=== PATIENT | female | born 1980 | race Caucasian/White ===

== ENCOUNTER 2016-09-01 11:50 | Outpatient (CLI) | payer MEDICARE, OTHER ==
[~2016-09-01] VITALS: Ht 162.6 cm; Wt 99.8 kg
[~2016-09-01 11:50] MED LIST: /ONDA4TA OR; /ONDA4TA PO; /PANT40TA PO; ACET50TA PO; ACETAMINOPHEN OR; ATOR1TAB21 PO; CIPR500T19; CLON0.5T PO; COLE1TAB PO; CREO6000 PO; FISH1200 PO; FLAG500T; FLON0.054; GABA-283 PO; GABA300C3 PO; GEMF600T PO; HYOSCYAMINE OR; IBUP100SUS FT; IBUP80TA PO; LOPI600T PO; MAGN500C PO; MIRT15TA3 PO; MS C200T PO; NORCOTAB PO; OMAC1CA PO; OMEP40CA2 PO; OXYC10TA12 PO; OXYCODONE OR; PANT20TA PO; PAXI40TA PO; PERC10TA17 PO; PERC7.5T12 PO; PERCOCET PO; PRAZ2CAP PO; PRIS50TA PO; PROZ10CA7 PO; PROZ40CA PO; RANI150C PO; SIMV20TA2; SODI1SOL8 PO; SODIUM CHLORIDE 0.9% INJ 10 ML SYR IV SCH; SUDA30TA PO; TRAZ150T14 PO; TRAZ50TA PO; TRAZ50TA2 PO; TRAZO50TA PO; TYLE325T5 PO; TYLENOL #3 OR; VITA200016 PO; WELL75TA PO; ZOFR20TA PO; ZOFR8TAB PO; celexa; clonazepam PO
[2016-09-01] MEDS ORDERED: NS 1,000 ML IV SCH (12:00)
[2016-09-01 12:55] LABS: MEAN CORPUSCULAR HEMOGLOBIN 29.8 pg (27.0-33.0); MEAN CORPUSCULAR HGB CONC 34.1 g/dl (32.0-36.5); MEAN CORPUSCULAR VOLUME 87.4 fl (80.0-96.0); RED CELL DISTRIBUTION WIDTH 12.5 % (11.5-14.5); WHITE BLOOD COUNT 11.9 K/mm3 (4.0-10.0)
[2016-09-01 13:38] LABS: ALBUMIN 4.3 GM/DL (3.2-5.2); ALBUMIN/GLOBULIN RATIO 1.13 (1.00-1.93); ALKALINE PHOSPHATASE 103 U/L (45-117); ALT/SGPT 34 U/L (12-78); ANION GAP 10 MEQ/L (8-16); AST/SGOT 11 U/L (15-37); BILIRUBIN,TOTAL 0.2 MG/DL (0.2-1.0); BLOOD UREA NITROGEN 15 MG/DL (7-18); CALCIUM LEVEL 9.8 MG/DL (8.5-10.1); CARBON DIOXIDE LEVEL 26 MEQ/L (21-32); CHLORIDE LEVEL 104 MEQ/L (98-107); CREATININE FOR GFR 0.75 MG/DL (0.55-1.02); GLOMERULAR FILTRATION RATE > 60.0 (>60); GLUCOSE, FASTING 92 MG/DL (70-105); MAGNESIUM LEVEL 2.3 MG/DL (1.8-2.4); POTASSIUM SERUM 4.2 MEQ/L (3.5-5.1); SODIUM LEVEL 140 MEQ/L (136-145); TOTAL PROTEIN 8.1 GM/DL (6.4-8.2)
== END 2016-09-01 15:45 | disposition home or self-care (01) ==
LOC: M INFU 11:50
PROVIDERS: ATTEND Internal Medicine
DX: K51.20 Ulcerative (chronic) proctitis without complications (principal); M13.0 Polyarthritis, unspecified; K86.1 Other chronic pancreatitis; K91.850 Pouchitis; K21.9 Gastro-esophageal reflux disease without esophagitis; E78.1 Pure hyperglyceridemia; E86.0 Dehydration

== ENCOUNTER 2016-09-15 12:06 | Outpatient (CLI) | payer MEDICARE, OTHER ==
[~2016-09-15] VITALS: Ht 162.6 cm; Wt 99.7 kg
[2016-09-15] MEDS ORDERED: NS 1,000 ML IV SCH (12:45)
== END 2016-09-15 15:35 | disposition home or self-care (01) ==
LOC: M INFU 12:06
PROVIDERS: ATTEND Internal Medicine
DX: E86.0 Dehydration (principal); K51.20 Ulcerative (chronic) proctitis without complications; Z79.899 Other long term (current) drug therapy; Z91.048 Other nonmedicinal substance allergy status; Z91.040 Latex allergy status; Z88.8 Allergy status to other drugs, medicaments and biological substances; Z88.5 Allergy status to narcotic agent

== ENCOUNTER 2016-09-29 11:40 | Outpatient (CLI) | payer MEDICARE, OTHER ==
[2016-09-29] MEDS ORDERED: NS 1,000 ML IV SCH (12:00)
== END 2016-09-29 15:30 | disposition home or self-care (01) ==
LOC: M INFU 11:40
PROVIDERS: ATTEND Internal Medicine
DX: E86.0 Dehydration (principal); K51.20 Ulcerative (chronic) proctitis without complications; Z79.899 Other long term (current) drug therapy; Z91.041 Radiographic dye allergy status; Z88.8 Allergy status to other drugs, medicaments and biological substances; Z91.040 Latex allergy status

== ENCOUNTER 2016-10-13 12:17 | Outpatient (CLI) | payer MEDICARE, OTHER ==
[2016-10-13] MEDS ORDERED: NS 1,000 ML IV SCH (12:30)
== END 2016-10-13 15:45 | disposition home or self-care (01) ==
LOC: M INFU 12:17
PROVIDERS: ATTEND Internal Medicine
DX: E86.0 Dehydration (principal); K51.20 Ulcerative (chronic) proctitis without complications; Z91.040 Latex allergy status; Z91.041 Radiographic dye allergy status; Z88.5 Allergy status to narcotic agent

== ENCOUNTER 2016-11-03 12:54 | Outpatient (CLI) | payer MEDICARE, OTHER ==
[~2016-11-03 12:54] MED LIST changes: +NS 1,000 ML IV SCH
== END 2016-11-03 16:30 | disposition home or self-care (01) ==
LOC: M INFU 12:54
PROVIDERS: ATTEND General Practice
DX: E86.0 Dehydration (principal); K51.20 Ulcerative (chronic) proctitis without complications; Z91.041 Radiographic dye allergy status; Z88.5 Allergy status to narcotic agent; Z91.040 Latex allergy status; Z79.899 Other long term (current) drug therapy

== ENCOUNTER 2016-11-08 20:22 | Emergency (ER) | payer MEDICARE, OTHER ==
[~2016-11-08] VITALS: Ht 162.6 cm; Wt 94.3 kg
[~2016-11-08 20:22] MED LIST changes: -NS 1,000 ML IV SCH; -SODIUM CHLORIDE 0.9% INJ 10 ML SYR IV SCH
[2016-11-08] MEDS ORDERED: OXYC10TA12 PO (20:44)
[2016-11-08] MEDS ORDERED: CIMZKIT SC (20:47)
[2016-11-08] MEDS ORDERED: BUSP10TA PO (20:47)
[2016-11-08] MEDS ORDERED: ONDANSETRON 4 MG ORAL DISINTEGRATING TAB (S0181) PO ONE (21:45)
[2016-11-08] MEDS ORDERED: HYDROmorphone HCL 1 MG/ML SYRINGE (J1170) IM ONE (21:45)
[2016-11-08 22:56] VITALS: BP 106/69
--- NOTE | 2016-11-09 08:16 | REP ---
Clinical: Trauma. Technique: AP, lateral, bilateral oblique views of the right and left wrist. Findings: The carpal bones, surrounding osseous structures, soft tissues, and joint spaces are normal. There is no evidence for acute fracture or dislocation. No subcutaneous emphysema or radiodense foreign body. Impression: Normal bilateral wrist series. No acute fracture or dislocation Signed by Walt Harper MD 11/09/2016 08:07 A
== END 2016-11-08 22:57 | disposition home or self-care (01) ==
LOC: M ED 21:23
DX: T14.8 Other injury of unspecified body region (principal); W10.8XXA Fall (on) (from) other stairs and steps, initial encounter; Y92.098 Other place in other non-institutional residence as the place of occurrence of the external cause; Y93.89 Activity, other specified; Y99.8 Other external cause status; G89.29 Other chronic pain; F17.210 Nicotine dependence, cigarettes, uncomplicated; Z91.041 Radiographic dye allergy status; Z88.5 Allergy status to narcotic agent; Z88.8 Allergy status to other drugs, medicaments and biological substances; Z91.040 Latex allergy status; Z88.1 Allergy status to other antibiotic agents; Z79.899 Other long term (current) drug therapy
CPT/HCPCS: 73110; 96372; 99282; J1170

== ENCOUNTER 2016-11-17 12:46 | Outpatient (CLI) | payer MEDICARE, OTHER ==
[~2016-11-17] VITALS: Ht 137.2 cm; Wt 99.8 kg
[~2016-11-17 12:46] MED LIST changes: +BUSP10TA PO; +CIMZKIT SC; +SODIUM CHLORIDE 0.9% INJ 10 ML SYR IV SCH
[2016-11-17] MEDS ORDERED: NS 1,000 ML IV SCH (13:00)
[2016-11-17 14:30] LABS: BASO % 0.4 % (0.0-1.0); EOS # 0.2 K/mm3 (0.0-0.50); EOS % 1.5 % (0.0-3.0); LARGE UNSTAINED CELL # 0.2 K/mm3 (0.0-0.4); LARGE UNSTAINED CELL % 2.2 % (0.0-4.0); LYMPH # 3.8 K/mm3 (1.5-4.5); MEAN CORPUSCULAR HEMOGLOBIN 30.5 pg (27.0-33.0); MEAN CORPUSCULAR HGB CONC 33.7 g/dl (32.0-36.5); MEAN CORPUSCULAR VOLUME 90.5 fl (80.0-96.0); MONO # 0.5 K/mm3 (0.0-0.8); MONO % 4.1 % (0.0-5.0); NEUTROPHILS # 6.7 K/mm3 (1.8-7.7); NEUTROPHILS % 59.7 % (36.0-66.0); PLATELET COUNT, AUTOMATED 298 k/mm3 (150-450); WHITE BLOOD COUNT 11.2 K/mm3 (4.0-10.0)
[2016-11-17 14:37] LABS: ALBUMIN 3.8 GM/DL (3.2-5.2); ALKALINE PHOSPHATASE 96 U/L (45-117); AST/SGOT 21 U/L (15-37); BILIRUBIN,TOTAL 0.2 MG/DL (0.2-1.0); BLOOD UREA NITROGEN 10 MG/DL (7-18); CALCIUM LEVEL 8.1 MG/DL (8.5-10.1); CARBON DIOXIDE LEVEL 26 MEQ/L (21-32); CHLORIDE LEVEL 104 MEQ/L (98-107); CHOLESTEROL LEVEL 266 MG/DL (<200); GLUCOSE, FASTING 123 MG/DL (70-105); POTASSIUM SERUM 3.5 MEQ/L (3.5-5.1); SODIUM LEVEL 138 MEQ/L (136-145); TRIGLYCERIDES LEVEL 1123 MG/DL (<150)
[2016-11-17 14:52] LABS: ANION GAP 8 MEQ/L (8-16)
[2016-11-17 14:53] LABS: ALBUMIN/GLOBULIN RATIO 1.18 (1.00-1.93); ALT/SGPT 35 U/L (12-78)
[2016-11-17 15:15] LABS: ERYTHROCYTE SEDIMENTATION RATE 35 mm/hr (0-20)
== END 2016-11-17 16:55 | disposition home or self-care (01) ==
LOC: M INFU 12:46
PROVIDERS: ATTEND Hospitalist
DX: E86.0 Dehydration (principal); K51.20 Ulcerative (chronic) proctitis without complications; Z79.899 Other long term (current) drug therapy; Z91.041 Radiographic dye allergy status; Z88.8 Allergy status to other drugs, medicaments and biological substances; Z91.040 Latex allergy status; Z88.5 Allergy status to narcotic agent

== ENCOUNTER 2016-12-01 11:40 | Outpatient (CLI) | payer MEDICARE, OTHER ==
[~2016-12-01] VITALS: Ht 137.2 cm; Wt 99.8 kg
[~2016-12-01 11:40] MED LIST changes: +GABA-282 PO; -GABA300C3 PO
[2016-12-01] MEDS ORDERED: NS 1,000 ML IV SCH (12:00)
[2016-12-01 12:35] LABS: BASO % 0.3 % (0.0-1.0); EOS # 0.1 K/mm3 (0.0-0.50); EOS % 1.1 % (0.0-3.0); LARGE UNSTAINED CELL # 0.2 K/mm3 (0.0-0.4); LARGE UNSTAINED CELL % 1.3 % (0.0-4.0); LYMPH # 2.9 K/mm3 (1.5-4.5); MEAN CORPUSCULAR HEMOGLOBIN 30.3 pg (27.0-33.0); MEAN CORPUSCULAR HGB CONC 33.3 g/dl (32.0-36.5); MEAN CORPUSCULAR VOLUME 90.8 fl (80.0-96.0); MONO # 0.5 K/mm3 (0.0-0.8); MONO % 3.5 % (0.0-5.0); NEUTROPHILS % 70.7 % (36.0-66.0); PLATELET COUNT, AUTOMATED 297 k/mm3 (150-450); RED CELL DISTRIBUTION WIDTH 12.5 % (11.5-14.5); WHITE BLOOD COUNT 12.7 K/mm3 (4.0-10.0)
[2016-12-01 12:56] LABS: ALBUMIN/GLOBULIN RATIO 1.25 (1.00-1.93); ALKALINE PHOSPHATASE 106 U/L (45-117); ALT/SGPT 22 U/L (12-78); ANION GAP 6 MEQ/L (8-16); AST/SGOT 15 U/L (15-37); BILIRUBIN,TOTAL 0.2 MG/DL (0.2-1.0); BLOOD UREA NITROGEN 11 MG/DL (7-18); CALCIUM LEVEL 9.7 MG/DL (8.5-10.1); CARBON DIOXIDE LEVEL 26 MEQ/L (21-32); CHLORIDE LEVEL 105 MEQ/L (98-107); CHOLESTEROL LEVEL 226 MG/DL (<200); CREATININE FOR GFR 0.69 MG/DL (0.55-1.02); GLOMERULAR FILTRATION RATE > 60.0 (>60); GLUCOSE, FASTING 167 MG/DL (70-105); SODIUM LEVEL 137 MEQ/L (136-145); TOTAL PROTEIN 7.2 GM/DL (6.4-8.2); TRIGLYCERIDES LEVEL 351 MG/DL (<150)
[2016-12-01 13:29] LABS: ERYTHROCYTE SEDIMENTATION RATE 16 mm/hr (0-20)
== END 2016-12-01 15:20 | disposition home or self-care (01) ==
LOC: M INFU 11:40
PROVIDERS: ATTEND Internal Medicine
DX: E86.0 Dehydration (principal); K51.20 Ulcerative (chronic) proctitis without complications; Z79.899 Other long term (current) drug therapy; Z91.041 Radiographic dye allergy status; Z88.8 Allergy status to other drugs, medicaments and biological substances; Z91.040 Latex allergy status; Z88.5 Allergy status to narcotic agent

== ENCOUNTER 2016-12-15 12:02 | Outpatient (CLI) | payer MEDICARE, OTHER ==
[~2016-12-15] VITALS: Ht 137.2 cm; Wt 99.8 kg
[2016-12-15] MEDS ORDERED: NS 1,000 ML IV ONE (12:30)
[2016-12-15 12:35] LABS: BASO # 0.1 K/mm3 (0.0-0.2); BASO % 0.5 % (0.0-1.0); EOS # 0.3 K/mm3 (0.0-0.50); EOS % 2.6 % (0.0-3.0); LARGE UNSTAINED CELL # 0.2 K/mm3 (0.0-0.4); LARGE UNSTAINED CELL % 1.7 % (0.0-4.0); LYMPH # 4.2 K/mm3 (1.5-4.5); LYMPH % 33.6 % (24.0-44.0); MEAN CORPUSCULAR HEMOGLOBIN 31.9 pg (27.0-33.0); MEAN CORPUSCULAR HGB CONC 34.7 g/dl (32.0-36.5); MEAN CORPUSCULAR VOLUME 91.9 fl (80.0-96.0); MONO # 0.5 K/mm3 (0.0-0.8); NEUTROPHILS # 7.2 K/mm3 (1.8-7.7); NEUTROPHILS % 57.6 % (36.0-66.0); PLATELET COUNT, AUTOMATED 288 k/mm3 (150-450); RED CELL DISTRIBUTION WIDTH 12.7 % (11.5-14.5); WHITE BLOOD COUNT 12.4 K/mm3 (4.0-10.0)
[2016-12-15 13:09] LABS: ERYTHROCYTE SEDIMENTATION RATE 20 mm/hr (0-20)
[2016-12-15 13:32] LABS: ALBUMIN/GLOBULIN RATIO 1.14 (1.00-1.93); ALKALINE PHOSPHATASE 106 U/L (45-117); ALT/SGPT 39 U/L (12-78); ANION GAP 9 MEQ/L (8-16); AST/SGOT 24 U/L (15-37); BILIRUBIN,TOTAL 0.2 MG/DL (0.2-1.0); BLOOD UREA NITROGEN 13 MG/DL (7-18); CALCIUM LEVEL 8.5 MG/DL (8.5-10.1); CARBON DIOXIDE LEVEL 25 MEQ/L (21-32); CHLORIDE LEVEL 106 MEQ/L (98-107); CHOLESTEROL LEVEL 209 MG/DL (<200); CREATININE FOR GFR 0.68 MG/DL (0.55-1.02); GLOMERULAR FILTRATION RATE > 60.0 (>60); GLUCOSE, FASTING 102 MG/DL (70-105); POTASSIUM SERUM 3.7 MEQ/L (3.5-5.1); SODIUM LEVEL 140 MEQ/L (136-145); TOTAL PROTEIN 7.5 GM/DL (6.4-8.2); TRIGLYCERIDES LEVEL 479 MG/DL (<150)
== END 2016-12-15 15:30 | disposition home or self-care (01) ==
LOC: M INFU 12:02
PROVIDERS: ATTEND Internal Medicine
DX: E86.0 Dehydration (principal); K51.20 Ulcerative (chronic) proctitis without complications; Z79.899 Other long term (current) drug therapy; Z91.041 Radiographic dye allergy status; Z88.8 Allergy status to other drugs, medicaments and biological substances; Z91.040 Latex allergy status; Z88.5 Allergy status to narcotic agent

== ENCOUNTER 2016-12-29 12:29 | Outpatient (CLI) | payer MEDICARE, OTHER ==
[~2016-12-29] VITALS: Ht 137.2 cm; Wt 99.8 kg
[~2016-12-29 12:29] MED LIST changes: +NS 1,000 ML IV ONE
[2016-12-29 14:23] LABS: BASO # 0.1 K/mm3 (0.0-0.2); BASO % 0.5 % (0.0-1.0); EOS # 0.2 K/mm3 (0.0-0.50); EOS % 1.6 % (0.0-3.0); LARGE UNSTAINED CELL # 0.2 K/mm3 (0.0-0.4); LARGE UNSTAINED CELL % 1.7 % (0.0-4.0); LYMPH # 4.2 K/mm3 (1.5-4.5); LYMPH % 33.5 % (24.0-44.0); MEAN CORPUSCULAR HEMOGLOBIN 31.3 pg (27.0-33.0); MEAN CORPUSCULAR HGB CONC 33.8 g/dl (32.0-36.5); MEAN CORPUSCULAR VOLUME 92.8 fl (80.0-96.0); MONO # 0.4 K/mm3 (0.0-0.8); MONO % 3.3 % (0.0-5.0); NEUTROPHILS # 7.5 K/mm3 (1.8-7.7); NEUTROPHILS % 59.5 % (36.0-66.0); PLATELET COUNT, AUTOMATED 317 k/mm3 (150-450); RED CELL DISTRIBUTION WIDTH 12.6 % (11.5-14.5); WHITE BLOOD COUNT 12.6 K/mm3 (4.0-10.0)
[2016-12-29 14:47] LABS: ALBUMIN 4.2 GM/DL (3.2-5.2); ALKALINE PHOSPHATASE 110 U/L (45-117); ALT/SGPT 28 U/L (12-78); ANION GAP 6 MEQ/L (8-16); AST/SGOT 11 U/L (15-37); BILIRUBIN,TOTAL 0.3 MG/DL (0.2-1.0); BLOOD UREA NITROGEN 13 MG/DL (7-18); CALCIUM LEVEL 9.1 MG/DL (8.5-10.1); CARBON DIOXIDE LEVEL 26 MEQ/L (21-32); CHLORIDE LEVEL 107 MEQ/L (98-107); CHOLESTEROL LEVEL 197 MG/DL (<200); CREATININE FOR GFR 0.67 MG/DL (0.55-1.02); GLOMERULAR FILTRATION RATE > 60.0 (>60); GLUCOSE, FASTING 96 MG/DL (70-105); POTASSIUM SERUM 3.8 MEQ/L (3.5-5.1); SODIUM LEVEL 139 MEQ/L (136-145); TOTAL PROTEIN 7.7 GM/DL (6.4-8.2); TRIGLYCERIDES LEVEL 213 MG/DL (<150)
[2016-12-29 15:34] LABS: ERYTHROCYTE SEDIMENTATION RATE 28 mm/hr (0-20)
== END 2016-12-29 16:00 | disposition home or self-care (01) ==
LOC: M INFU 12:29
PROVIDERS: ATTEND Hospitalist
DX: E86.0 Dehydration (principal); K51.20 Ulcerative (chronic) proctitis without complications; Z87.891 Personal history of nicotine dependence; Z88.5 Allergy status to narcotic agent; Z91.041 Radiographic dye allergy status; Z88.8 Allergy status to other drugs, medicaments and biological substances; Z91.040 Latex allergy status; Z88.1 Allergy status to other antibiotic agents; Z79.899 Other long term (current) drug therapy

== ENCOUNTER 2017-01-12 10:45 | Outpatient (CLI) | payer MEDICARE, OTHER ==
[~2017-01-12] VITALS: Ht 137.2 cm; Wt 99.8 kg
[~2017-01-12 10:45] MED LIST changes: -NS 1,000 ML IV ONE; +NS 2,000 ML IV SCH
[2017-01-12 11:39] LABS: BASO % 0.4 % (0.0-1.0); EOS # 0.3 K/mm3 (0.0-0.50); LARGE UNSTAINED CELL # 0.2 K/mm3 (0.0-0.4); LARGE UNSTAINED CELL % 1.4 % (0.0-4.0); LYMPH # 2.6 K/mm3 (1.5-4.5); MEAN CORPUSCULAR HGB CONC 33.9 g/dl (32.0-36.5); MEAN CORPUSCULAR VOLUME 91.6 fl (80.0-96.0); MONO # 0.6 K/mm3 (0.0-0.8); MONO % 4.5 % (0.0-5.0); NEUTROPHILS # 9.4 K/mm3 (1.8-7.7); NEUTROPHILS % 71.8 % (36.0-66.0); PLATELET COUNT, AUTOMATED 249 k/mm3 (150-450); RED CELL DISTRIBUTION WIDTH 12.6 % (11.5-14.5); WHITE BLOOD COUNT 13.1 K/mm3 (4.0-10.0)
[2017-01-12 12:36] LABS: ERYTHROCYTE SEDIMENTATION RATE 29 mm/hr (0-20)
[2017-01-12 13:14] LABS: ALBUMIN 3.7 GM/DL (3.2-5.2); ALBUMIN/GLOBULIN RATIO 1.06 (1.00-1.93); ALKALINE PHOSPHATASE 99 U/L (45-117); ALT/SGPT 28 U/L (12-78); ANION GAP 6 MEQ/L (8-16); AST/SGOT 14 U/L (15-37); BILIRUBIN,TOTAL 0.3 MG/DL (0.2-1.0); BLOOD UREA NITROGEN 10 MG/DL (7-18); CALCIUM LEVEL 8.8 MG/DL (8.5-10.1); CARBON DIOXIDE LEVEL 26 MEQ/L (21-32); CHLORIDE LEVEL 108 MEQ/L (98-107); CHOLESTEROL LEVEL 229 MG/DL (<200); CREATININE FOR GFR 0.71 MG/DL (0.55-1.02); GLOMERULAR FILTRATION RATE > 60.0 (>60); GLUCOSE, FASTING 110 MG/DL (70-105); SODIUM LEVEL 140 MEQ/L (136-145); TOTAL PROTEIN 7.2 GM/DL (6.4-8.2); TRIGLYCERIDES LEVEL 729 MG/DL (<150)
== END 2017-01-12 14:45 | disposition home or self-care (01) ==
LOC: M INFU 10:45
PROVIDERS: ATTEND Hospitalist
DX: E86.0 Dehydration (principal); K51.90 Ulcerative colitis, unspecified, without complications; K62.89 Other specified diseases of anus and rectum; Z88.1 Allergy status to other antibiotic agents; Z91.041 Radiographic dye allergy status; Z91.040 Latex allergy status; Z88.8 Allergy status to other drugs, medicaments and biological substances; Z79.899 Other long term (current) drug therapy

== ENCOUNTER 2017-01-26 12:32 | Outpatient (CLI) | payer MEDICARE, OTHER ==
[~2017-01-26 12:32] MED LIST changes: -NS 2,000 ML IV SCH
[2017-01-26] MEDS ORDERED: NS 2,000 ML IV ONE (13:00)
[2017-01-26 13:47] LABS: BASO # 0.1 K/mm3 (0.0-0.2); BASO % 0.5 % (0.0-1.0); EOS # 0.2 K/mm3 (0.0-0.50); EOS % 1.5 % (0.0-3.0); LARGE UNSTAINED CELL # 0.3 K/mm3 (0.0-0.4); LYMPH # 4.8 K/mm3 (1.5-4.5); LYMPH % 35.7 % (24.0-44.0); MEAN CORPUSCULAR HEMOGLOBIN 30.7 pg (27.0-33.0); MEAN CORPUSCULAR HGB CONC 33.4 g/dl (32.0-36.5); MEAN CORPUSCULAR VOLUME 91.9 fl (80.0-96.0); MONO # 0.5 K/mm3 (0.0-0.8); MONO % 3.6 % (0.0-5.0); NEUTROPHILS # 7.2 K/mm3 (1.8-7.7); NEUTROPHILS % 56.7 % (36.0-66.0); PLATELET COUNT, AUTOMATED 310 k/mm3 (150-450); RED CELL DISTRIBUTION WIDTH 12.5 % (11.5-14.5); WHITE BLOOD COUNT 12.7 K/mm3 (4.0-10.0)
[2017-01-26 14:12] LABS: ALBUMIN 4.3 GM/DL (3.2-5.2); ALBUMIN/GLOBULIN RATIO 1.13 (1.00-1.93); ALKALINE PHOSPHATASE 111 U/L (45-117); ALT/SGPT 27 U/L (12-78); ANION GAP 8 MEQ/L (8-16); AST/SGOT 16 U/L (15-37); BILIRUBIN,TOTAL 0.3 MG/DL (0.2-1.0); BLOOD UREA NITROGEN 17 MG/DL (7-18); CALCIUM LEVEL 9.4 MG/DL (8.5-10.1); CARBON DIOXIDE LEVEL 24 MEQ/L (21-32); CHLORIDE LEVEL 104 MEQ/L (98-107); CHOLESTEROL LEVEL 227 MG/DL (<200); CREATININE FOR GFR 0.77 MG/DL (0.55-1.02); GLOMERULAR FILTRATION RATE > 60.0 (>60); GLUCOSE, FASTING 87 MG/DL (70-105); POTASSIUM SERUM 3.7 MEQ/L (3.5-5.1); SODIUM LEVEL 136 MEQ/L (136-145); TOTAL PROTEIN 8.1 GM/DL (6.4-8.2); TRIGLYCERIDES LEVEL 364 MG/DL (<150)
[2017-01-26 14:44] LABS: ERYTHROCYTE SEDIMENTATION RATE 22 mm/hr (0-20)
== END 2017-01-26 16:20 | disposition home or self-care (01) ==
LOC: M INFU 12:32
PROVIDERS: ATTEND Internal Medicine
DX: E86.0 Dehydration (principal); K51.20 Ulcerative (chronic) proctitis without complications; Z87.891 Personal history of nicotine dependence; Z88.8 Allergy status to other drugs, medicaments and biological substances; Z91.041 Radiographic dye allergy status; Z88.5 Allergy status to narcotic agent; Z91.040 Latex allergy status; Z88.1 Allergy status to other antibiotic agents; Z88.3 Allergy status to other anti-infective agents; Z79.899 Other long term (current) drug therapy

== ENCOUNTER 2017-02-09 12:27 | Outpatient (CLI) | payer MEDICARE, OTHER ==
[~2017-02-09] VITALS: Ht 137.2 cm; Wt 99.8 kg
[2017-02-09] MEDS ORDERED: NS 1,000 ML IV SCH (13:00)
[2017-02-09 14:00] LABS: BASO # 0.1 K/mm3 (0.0-0.2); BASO % 0.4 % (0.0-1.0); EOS # 0.3 K/mm3 (0.0-0.50); LARGE UNSTAINED CELL # 0.2 K/mm3 (0.0-0.4); LARGE UNSTAINED CELL % 1.2 % (0.0-4.0); LYMPH # 3.7 K/mm3 (1.5-4.5); LYMPH % 24.2 % (24.0-44.0); MEAN CORPUSCULAR HEMOGLOBIN 31.1 pg (27.0-33.0); MEAN CORPUSCULAR HGB CONC 33.7 g/dl (32.0-36.5); MEAN CORPUSCULAR VOLUME 92.3 fl (80.0-96.0); MONO # 0.4 K/mm3 (0.0-0.8); MONO % 2.8 % (0.0-5.0); NEUTROPHILS # 10.1 K/mm3 (1.8-7.7); NEUTROPHILS % 69.4 % (36.0-66.0); PLATELET COUNT, AUTOMATED 283 k/mm3 (150-450); RED CELL DISTRIBUTION WIDTH 12.7 % (11.5-14.5); WHITE BLOOD COUNT 14.6 K/mm3 (4.0-10.0)
[2017-02-09 14:08] LABS: CHLORIDE LEVEL 106 MEQ/L (98-107); POTASSIUM SERUM 3.8 MEQ/L (3.5-5.1); SODIUM LEVEL 141 MEQ/L (136-145)
[2017-02-09 14:27] LABS: ALBUMIN 3.8 GM/DL (3.2-5.2); ALBUMIN/GLOBULIN RATIO 1.03 (1.00-1.93); ALKALINE PHOSPHATASE 91 U/L (45-117); ALT/SGPT 31 U/L (12-78); ANION GAP 7 MEQ/L (8-16); AST/SGOT 20 U/L (15-37); BILIRUBIN,TOTAL 0.3 MG/DL (0.2-1.0); BLOOD UREA NITROGEN 10 MG/DL (7-18); CALCIUM LEVEL 8.9 MG/DL (8.5-10.1); CARBON DIOXIDE LEVEL 28 MEQ/L (21-32); CHOLESTEROL LEVEL 203 MG/DL (<200); CREATININE FOR GFR 0.67 MG/DL (0.55-1.02); GLOMERULAR FILTRATION RATE > 60.0 (>60); GLUCOSE, FASTING 118 MG/DL (70-105); TOTAL PROTEIN 7.5 GM/DL (6.4-8.2); TRIGLYCERIDES LEVEL 217 MG/DL (<150)
[2017-02-09 14:52] LABS: ERYTHROCYTE SEDIMENTATION RATE 25 mm/hr (0-20)
== END 2017-02-09 16:30 | disposition home or self-care (01) ==
LOC: M INFU 12:27
PROVIDERS: ATTEND Hospitalist
DX: E86.0 Dehydration (principal); K51.20 Ulcerative (chronic) proctitis without complications; Z87.891 Personal history of nicotine dependence; Z88.5 Allergy status to narcotic agent; Z91.041 Radiographic dye allergy status; Z88.8 Allergy status to other drugs, medicaments and biological substances; Z91.040 Latex allergy status; Z88.3 Allergy status to other anti-infective agents; Z88.1 Allergy status to other antibiotic agents; Z79.899 Other long term (current) drug therapy

== ENCOUNTER 2017-02-23 11:56 | Outpatient (CLI) | payer MEDICARE, OTHER ==
[~2017-02-23] VITALS: Ht 137.2 cm; Wt 99.8 kg
[~2017-02-23 11:56] MED LIST changes: -PERC10TA17 PO; +PERC10TA26 PO; -TRAZ150T14 PO; +TRAZ1TAB14 PO
[2017-02-23] MEDS ORDERED: NS 1,000 ML IV SCH (12:00)
[2017-02-23 12:20] LABS: BASO # 0.1 K/mm3 (0.0-0.2); BASO % 0.7 % (0.0-1.0); EOS # 0.2 K/mm3 (0.0-0.50); EOS % 1.6 % (0.0-3.0); LARGE UNSTAINED CELL # 0.2 K/mm3 (0.0-0.4); LARGE UNSTAINED CELL % 1.4 % (0.0-4.0); LYMPH # 3.4 K/mm3 (1.5-4.5); LYMPH % 23.3 % (24.0-44.0); MEAN CORPUSCULAR HEMOGLOBIN 31.2 pg (27.0-33.0); MEAN CORPUSCULAR HGB CONC 33.8 g/dl (32.0-36.5); MEAN CORPUSCULAR VOLUME 92.2 fl (80.0-96.0); MONO # 0.3 K/mm3 (0.0-0.8); MONO % 1.9 % (0.0-5.0); NEUTROPHILS # 10.5 K/mm3 (1.8-7.7); PLATELET COUNT, AUTOMATED 306 k/mm3 (150-450); RED CELL DISTRIBUTION WIDTH 12.4 % (11.5-14.5); WHITE BLOOD COUNT 14.8 K/mm3 (4.0-10.0)
[2017-02-23 12:47] LABS: ALKALINE PHOSPHATASE 102 U/L (45-117); ALT/SGPT 23 U/L (12-78); ANION GAP 8 MEQ/L (8-16); AST/SGOT 9 U/L (15-37); BILIRUBIN,TOTAL 0.3 MG/DL (0.2-1.0); BLOOD UREA NITROGEN 15 MG/DL (7-18); CALCIUM LEVEL 9.1 MG/DL (8.5-10.1); CARBON DIOXIDE LEVEL 22 MEQ/L (21-32); CHLORIDE LEVEL 107 MEQ/L (98-107); CHOLESTEROL LEVEL 242 MG/DL (<200); CREATININE FOR GFR 0.79 MG/DL (0.55-1.02); GLOMERULAR FILTRATION RATE > 60.0 (>60); GLUCOSE, FASTING 200 MG/DL (70-105); POTASSIUM SERUM 3.7 MEQ/L (3.5-5.1); SODIUM LEVEL 137 MEQ/L (136-145); TRIGLYCERIDES LEVEL 256 MG/DL (<150)
[2017-02-23 13:19] LABS: ERYTHROCYTE SEDIMENTATION RATE 31 mm/hr (0-20)
[2017-06-24] MEDS ORDERED: TYLE325T5 PO (18:04)
== END 2017-02-23 15:50 | disposition home or self-care (01) ==
LOC: M INFU 11:56
PROVIDERS: ATTEND Internal Medicine
DX: E86.0 Dehydration (principal); K51.20 Ulcerative (chronic) proctitis without complications; Z87.891 Personal history of nicotine dependence; Z91.041 Radiographic dye allergy status; Z88.8 Allergy status to other drugs, medicaments and biological substances; Z91.040 Latex allergy status; Z88.5 Allergy status to narcotic agent; Z88.1 Allergy status to other antibiotic agents; Z88.3 Allergy status to other anti-infective agents; Z79.899 Other long term (current) drug therapy

== ENCOUNTER 2017-02-26 20:34 | Emergency (ER) | payer MEDICARE, OTHER ==
[~2017-02-26] VITALS: Ht 162.6 cm; Wt 89.9 kg
[~2017-02-26 20:34] MED LIST changes: -SODIUM CHLORIDE 0.9% INJ 10 ML SYR IV SCH
[2017-02-26] MEDS ORDERED: ZOFR20TA PO (20:41)
[2017-02-26] MEDS ORDERED: LR 1,000 ML IV ONE (22:30)
[2017-02-26] MEDS ORDERED: METOCLOPRAMIDE INJ 10MG/2ML VIAL (J2765) IV ONE (22:30)
[2017-02-26 23:13] LABS: BASO # 0.1 K/mm3 (0.0-0.2); BASO % 0.4 % (0.0-1.0); EOS # 0.4 K/mm3 (0.0-0.50); EOS % 2.2 % (0.0-3.0); LARGE UNSTAINED CELL # 0.2 K/mm3 (0.0-0.4); LARGE UNSTAINED CELL % 1.2 % (0.0-4.0); LYMPH # 4.1 K/mm3 (1.5-4.5); MEAN CORPUSCULAR HEMOGLOBIN 30.7 pg (27.0-33.0); MEAN CORPUSCULAR HGB CONC 33.4 g/dl (32.0-36.5); MEAN CORPUSCULAR VOLUME 91.7 fl (80.0-96.0); MONO # 0.6 K/mm3 (0.0-0.8); MONO % 3.3 % (0.0-5.0); NEUTROPHILS # 12.5 K/mm3 (1.8-7.7); NEUTROPHILS % 70.9 % (36.0-66.0); PLATELET COUNT, AUTOMATED 346 k/mm3 (150-450); RED CELL DISTRIBUTION WIDTH 12.5 % (11.5-14.5); WHITE BLOOD COUNT 17.6 K/mm3 (4.0-10.0)
[2017-02-26] MEDS ORDERED: HYDROmorphone HCL 1 MG/ML SYRINGE (J1170) IV PRN (23:15)
[2017-02-26 23:44] LABS: ALBUMIN 4.4 GM/DL (3.2-5.2); ALKALINE PHOSPHATASE 127 U/L (45-117); ALT/SGPT 22 U/L (12-78); ANION GAP 6 MEQ/L (8-16); AST/SGOT 13 U/L (15-37); BILIRUBIN,DIRECT 0.1 MG/DL (0.0-0.2); BILIRUBIN,TOTAL 0.5 MG/DL (0.2-1.0); BLOOD UREA NITROGEN 15 MG/DL (7-18); CALCIUM LEVEL 9.4 MG/DL (8.5-10.1); CARBON DIOXIDE LEVEL 24 MEQ/L (21-32); CHLORIDE LEVEL 104 MEQ/L (98-107); CREATININE FOR GFR 0.95 MG/DL (0.55-1.02); GLOMERULAR FILTRATION RATE > 60.0 (>60); GLUCOSE, FASTING 100 MG/DL (70-105); POTASSIUM SERUM 3.7 MEQ/L (3.5-5.1); SODIUM LEVEL 134 MEQ/L (136-145); TOTAL PROTEIN 8.4 GM/DL (6.4-8.2)
[2017-02-27] MEDS ORDERED: REGL10TA6 PO (02:27)
[2017-02-27 02:31] VITALS: BP 96/57
--- NOTE | 2017-02-27 08:23 | REP ---
ABDOMEN, FLAT AND UPRIGHT; PA CHEST: HISTORY: Vomiting. A small amount of air is present in small and large intestine. There are no air fluid levels or dilated loops of intestine. There is no pneumoperitoneum. Surgical clips are present in the right upper quadrant. The lungs are clear. IMPRESSION: Nonspecific bowel gas pattern. Signed by Colby Maza MD 02/27/2017 08:24 A
[2017-06-24] MEDS ORDERED: TYLE325T5 PO (18:04)
== END 2017-02-27 02:31 | disposition home or self-care (01) ==
LOC: M ED 20:34
DX: R11.2 Nausea with vomiting, unspecified (principal)
CPT/HCPCS: 74022; 80048; 80076; 83690; 85025; 93041; 96374; 96375; 99284; J1170; J2765

== ENCOUNTER 2017-03-09 12:58 | Outpatient (CLI) | payer MEDICARE, OTHER ==
[~2017-03-09] VITALS: Ht 137.2 cm; Wt 99.8 kg
[~2017-03-09 12:58] MED LIST changes: +REGL10TA6 PO; +SODIUM CHLORIDE 0.9% INJ 10 ML SYR IV SCH
[2017-03-09] MEDS ORDERED: NS 1,000 ML IV SCH (13:15)
[2017-03-09 13:43] LABS: BASO # 0.1 K/mm3 (0.0-0.2); EOS # 0.3 K/mm3 (0.0-0.50); EOS % 2.5 % (0.0-3.0); LARGE UNSTAINED CELL # 0.2 K/mm3 (0.0-0.4); LARGE UNSTAINED CELL % 1.7 % (0.0-4.0); LYMPH # 4.3 K/mm3 (1.5-4.5); LYMPH % 37.3 % (24.0-44.0); MEAN CORPUSCULAR HGB CONC 33.3 g/dl (32.0-36.5); MEAN CORPUSCULAR VOLUME 93.1 fl (80.0-96.0); MONO # 0.5 K/mm3 (0.0-0.8); MONO % 3.9 % (0.0-5.0); NEUTROPHILS # 6.2 K/mm3 (1.8-7.7); NEUTROPHILS % 53.6 % (36.0-66.0); PLATELET COUNT, AUTOMATED 306 k/mm3 (150-450); RED CELL DISTRIBUTION WIDTH 12.2 % (11.5-14.5); WHITE BLOOD COUNT 11.6 K/mm3 (4.0-10.0)
[2017-03-09 14:21] LABS: ERYTHROCYTE SEDIMENTATION RATE 35 mm/hr (0-20)
[2017-03-09] MEDS ORDERED: OXYC-403 PO (14:35)
[2017-03-09] MEDS ORDERED: CIMZKIT SC (14:36)
[2017-03-09 15:20] LABS: ALBUMIN 3.9 GM/DL (3.2-5.2); ALBUMIN/GLOBULIN RATIO 1.22 (1.00-1.93); ALKALINE PHOSPHATASE 95 U/L (45-117); ALT/SGPT 18 U/L (12-78); ANION GAP 6 MEQ/L (8-16); AST/SGOT 11 U/L (15-37); BILIRUBIN,TOTAL 0.2 MG/DL (0.2-1.0); BLOOD UREA NITROGEN 10 MG/DL (7-18); CALCIUM LEVEL 9.2 MG/DL (8.5-10.1); CARBON DIOXIDE LEVEL 25 MEQ/L (21-32); CHLORIDE LEVEL 106 MEQ/L (98-107); CHOLESTEROL LEVEL 172 MG/DL (<200); CREATININE FOR GFR 0.65 MG/DL (0.55-1.02); GLOMERULAR FILTRATION RATE > 60.0 (>60); GLUCOSE, FASTING 81 MG/DL (70-105); POTASSIUM SERUM 3.9 MEQ/L (3.5-5.1); SODIUM LEVEL 137 MEQ/L (136-145); TOTAL PROTEIN 7.1 GM/DL (6.4-8.2); TRIGLYCERIDES LEVEL 175 MG/DL (<150)
[2017-06-24] MEDS ORDERED: TYLE325T5 PO (18:04)
== END 2017-03-09 16:45 | disposition home or self-care (01) ==
LOC: M INFU 12:58
PROVIDERS: ATTEND Hospitalist
DX: E86.0 Dehydration (principal); K51.20 Ulcerative (chronic) proctitis without complications; Z87.891 Personal history of nicotine dependence; Z88.5 Allergy status to narcotic agent; Z88.8 Allergy status to other drugs, medicaments and biological substances; Z91.041 Radiographic dye allergy status; Z91.040 Latex allergy status; Z88.3 Allergy status to other anti-infective agents; Z88.1 Allergy status to other antibiotic agents; Z79.899 Other long term (current) drug therapy

== ENCOUNTER 2017-03-21 10:04 | Outpatient (CLI) | payer MEDICARE, OTHER ==
[~2017-03-21] VITALS: Ht 137.2 cm; Wt 99.8 kg
[~2017-03-21 10:04] MED LIST changes: +OXYC-403 PO
[2017-03-21 10:30] LABS: BASO # 0.1 K/mm3 (0.0-0.2); BASO % 0.5 % (0.0-1.0); EOS # 0.4 K/mm3 (0.0-0.50); EOS % 2.6 % (0.0-3.0); LARGE UNSTAINED CELL # 0.2 K/mm3 (0.0-0.4); LARGE UNSTAINED CELL % 1.3 % (0.0-4.0); LYMPH # 3.3 K/mm3 (1.5-4.5); LYMPH % 21.4 % (24.0-44.0); MEAN CORPUSCULAR HGB CONC 33.9 g/dl (32.0-36.5); MEAN CORPUSCULAR VOLUME 91.5 fl (80.0-96.0); MONO # 0.5 K/mm3 (0.0-0.8); MONO % 3.6 % (0.0-5.0); NEUTROPHILS # 10.3 K/mm3 (1.8-7.7); NEUTROPHILS % 70.6 % (36.0-66.0); PLATELET COUNT, AUTOMATED 350 k/mm3 (150-450); RED CELL DISTRIBUTION WIDTH 12.7 % (11.5-14.5); WHITE BLOOD COUNT 14.6 K/mm3 (4.0-10.0)
[2017-03-21] MEDS ORDERED: NS 1,000 ML IV ONE (10:30)
[2017-03-21 10:55] LABS: ERYTHROCYTE SEDIMENTATION RATE 28 mm/hr (0-20)
[2017-03-21 12:24] LABS: ALKALINE PHOSPHATASE 104 U/L (45-117); ALT/SGPT 24 U/L (12-78); ANION GAP 9 MEQ/L (8-16); AST/SGOT 14 U/L (15-37); BILIRUBIN,TOTAL 0.4 MG/DL (0.2-1.0); BLOOD UREA NITROGEN 13 MG/DL (7-18); CALCIUM LEVEL 9.2 MG/DL (8.5-10.1); CARBON DIOXIDE LEVEL 23 MEQ/L (21-32); CHLORIDE LEVEL 108 MEQ/L (98-107); CREATININE FOR GFR 0.67 MG/DL (0.55-1.02); GLOMERULAR FILTRATION RATE > 60.0 (>60); GLUCOSE, FASTING 105 MG/DL (70-105); POTASSIUM SERUM 4.2 MEQ/L (3.5-5.1); SODIUM LEVEL 140 MEQ/L (136-145)
[2017-03-21 12:25] LABS: ALBUMIN 4.2 GM/DL (3.2-5.2); ALBUMIN/GLOBULIN RATIO 1.14 (1.00-1.93); CHOLESTEROL LEVEL 192 MG/DL (<200); TOTAL PROTEIN 7.9 GM/DL (6.4-8.2); TRIGLYCERIDES LEVEL 122 MG/DL (<150)
[2017-06-24] MEDS ORDERED: TYLE325T5 PO (18:04)
== END 2017-03-21 13:30 | disposition home or self-care (01) ==
LOC: M INFU 10:04
PROVIDERS: ATTEND Hospitalist
DX: E86.0 Dehydration (principal); K51.20 Ulcerative (chronic) proctitis without complications; Z87.891 Personal history of nicotine dependence; Z87.442 Personal history of urinary calculi; Z88.5 Allergy status to narcotic agent; Z91.041 Radiographic dye allergy status; Z88.8 Allergy status to other drugs, medicaments and biological substances; Z91.040 Latex allergy status; Z88.3 Allergy status to other anti-infective agents; Z79.899 Other long term (current) drug therapy

== ENCOUNTER 2017-04-06 11:43 | Outpatient (CLI) | payer MEDICARE, OTHER ==
[2017-04-06] MEDS ORDERED: NS 2,000 ML IV SCH (12:00)
[2017-04-06 12:06] LABS: BASO # 0.1 K/mm3 (0.0-0.2); BASO % 0.4 % (0.0-1.0); EOS # 0.5 K/mm3 (0.0-0.50); EOS % 2.8 % (0.0-3.0); LARGE UNSTAINED CELL # 0.2 K/mm3 (0.0-0.4); LARGE UNSTAINED CELL % 1.1 % (0.0-4.0); LYMPH # 3.9 K/mm3 (1.5-4.5); LYMPH % 23.1 % (24.0-44.0); MEAN CORPUSCULAR HEMOGLOBIN 30.9 pg (27.0-33.0); MEAN CORPUSCULAR HGB CONC 33.7 g/dl (32.0-36.5); MEAN CORPUSCULAR VOLUME 91.7 fl (80.0-96.0); MONO # 0.4 K/mm3 (0.0-0.8); MONO % 2.7 % (0.0-5.0); NEUTROPHILS # 11.4 K/mm3 (1.8-7.7); NEUTROPHILS % 69.9 % (36.0-66.0); PLATELET COUNT, AUTOMATED 327 k/mm3 (150-450); RED CELL DISTRIBUTION WIDTH 12.8 % (11.5-14.5); WHITE BLOOD COUNT 16.3 K/mm3 (4.0-10.0)
[2017-04-06 12:35] LABS: CHOLESTEROL LEVEL 254 MG/DL (<200); TRIGLYCERIDES LEVEL 427 MG/DL (<150)
[2017-04-06 12:58] LABS: ERYTHROCYTE SEDIMENTATION RATE 27 mm/hr (0-20)
[2017-04-06 14:27] LABS: POTASSIUM SERUM 3.9 MEQ/L (3.5-5.1)
[2017-04-06 15:04] LABS: ALBUMIN 3.9 GM/DL (3.2-5.2); ALBUMIN/GLOBULIN RATIO 1.15 (1.00-1.93); ALKALINE PHOSPHATASE 100 U/L (45-117); ALT/SGPT 19 U/L (12-78); ANION GAP 10 MEQ/L (8-16); AST/SGOT 9 U/L (15-37); BILIRUBIN,TOTAL 0.2 MG/DL (0.2-1.0); BLOOD UREA NITROGEN 13 MG/DL (7-18); CALCIUM LEVEL 8.9 MG/DL (8.5-10.1); CARBON DIOXIDE LEVEL 24 MEQ/L (21-32); CHLORIDE LEVEL 110 MEQ/L (98-107); CREATININE FOR GFR 0.59 MG/DL (0.55-1.02); GLOMERULAR FILTRATION RATE > 60.0 (>60); GLUCOSE, FASTING 117 MG/DL (70-105); SODIUM LEVEL 144 MEQ/L (136-145); TOTAL PROTEIN 7.3 GM/DL (6.4-8.2)
[2017-06-24] MEDS ORDERED: TYLE325T5 PO (18:04)
== END 2017-04-06 15:15 | disposition home or self-care (01) ==
LOC: M INFU 11:43
PROVIDERS: ATTEND Hospitalist
DX: E86.0 Dehydration (principal); K51.20 Ulcerative (chronic) proctitis without complications; Z87.891 Personal history of nicotine dependence; Z87.442 Personal history of urinary calculi; Z88.5 Allergy status to narcotic agent; Z88.8 Allergy status to other drugs, medicaments and biological substances; Z91.041 Radiographic dye allergy status; Z91.040 Latex allergy status; Z88.3 Allergy status to other anti-infective agents; Z79.899 Other long term (current) drug therapy

== ENCOUNTER 2017-04-20 10:57 | Outpatient (CLI) | payer MEDICARE, OTHER ==
[~2017-04-20 10:57] MED LIST changes: +NS 2,000 ML IV ONE
[2017-04-20 11:25] LABS: BASO # 0.1 K/mm3 (0.0-0.2); BASO % 0.6 % (0.0-1.0); EOS # 0.2 K/mm3 (0.0-0.50); LARGE UNSTAINED CELL # 0.2 K/mm3 (0.0-0.4); LARGE UNSTAINED CELL % 1.8 % (0.0-4.0); LYMPH % 31.8 % (24.0-44.0); MEAN CORPUSCULAR HEMOGLOBIN 31.2 pg (27.0-33.0); MEAN CORPUSCULAR HGB CONC 34.1 g/dl (32.0-36.5); MEAN CORPUSCULAR VOLUME 91.7 fl (80.0-96.0); MONO # 0.3 K/mm3 (0.0-0.8); MONO % 3.8 % (0.0-5.0); NEUTROPHILS # 5.4 K/mm3 (1.8-7.7); NEUTROPHILS % 60.1 % (36.0-66.0); PLATELET COUNT, AUTOMATED 302 k/mm3 (150-450); RED CELL DISTRIBUTION WIDTH 12.7 % (11.5-14.5); WHITE BLOOD COUNT 8.9 K/mm3 (4.0-10.0)
[2017-04-20 11:52] LABS: ERYTHROCYTE SEDIMENTATION RATE 35 mm/hr (0-20)
[2017-04-20 13:22] LABS: ALBUMIN 3.7 GM/DL (3.2-5.2); ALBUMIN/GLOBULIN RATIO 0.97 (1.00-1.93); ALKALINE PHOSPHATASE 97 U/L (45-117); ALT/SGPT 23 U/L (12-78); ANION GAP 10 MEQ/L (8-16); AST/SGOT < 3 U/L (15-37); BILIRUBIN,TOTAL 0.2 MG/DL (0.2-1.0); BLOOD UREA NITROGEN 14 MG/DL (7-18); CALCIUM LEVEL 8.7 MG/DL (8.5-10.1); CARBON DIOXIDE LEVEL 22 MEQ/L (21-32); CHLORIDE LEVEL 106 MEQ/L (98-107); CHOLESTEROL LEVEL 258 MG/DL (<200); CREATININE FOR GFR 0.64 MG/DL (0.55-1.02); GLOMERULAR FILTRATION RATE > 60.0 (>60); GLUCOSE, FASTING 103 MG/DL (70-105); POTASSIUM SERUM 4.1 MEQ/L (3.5-5.1); SODIUM LEVEL 138 MEQ/L (136-145); TOTAL PROTEIN 7.5 GM/DL (6.4-8.2); TRIGLYCERIDES LEVEL 486 MG/DL (<150)
[2017-06-24] MEDS ORDERED: TYLE325T5 PO (18:04)
== END 2017-04-20 14:40 | disposition home or self-care (01) ==
LOC: M INFU 10:57
PROVIDERS: ATTEND Internal Medicine
DX: E86.0 Dehydration (principal); K51.20 Ulcerative (chronic) proctitis without complications

== ENCOUNTER 2017-04-25 20:10 | Emergency (ER) | payer MEDICARE, OTHER ==
[~2017-04-25] VITALS: Ht 162.6 cm; Wt 81.8 kg
[~2017-04-25 20:10] MED LIST changes: -NS 2,000 ML IV ONE; -SODIUM CHLORIDE 0.9% INJ 10 ML SYR IV SCH
[2017-04-25] MEDS ORDERED: NS 1,000 ML IV ONE (21:00)
[2017-04-25] MEDS ORDERED: PANTOPRAZOLE 40MG INJ (PROTONIX) (C9113) IV ONE (21:00)
[2017-04-25] MEDS ORDERED: METOCLOPRAMIDE INJ 10MG/2ML VIAL (J2765) IV ONE (21:00)
[2017-04-25 21:24] LABS: BASO % 0.4 % (0.0-1.0); EOS # 0.1 K/mm3 (0.0-0.50); LARGE UNSTAINED CELL # 0.2 K/mm3 (0.0-0.4); LARGE UNSTAINED CELL % 1.9 % (0.0-4.0); LYMPH # 3.1 K/mm3 (1.5-4.5); LYMPH % 24.7 % (24.0-44.0); MEAN CORPUSCULAR HEMOGLOBIN 31.1 pg (27.0-33.0); MEAN CORPUSCULAR HGB CONC 34.2 g/dl (32.0-36.5); MEAN CORPUSCULAR VOLUME 90.9 fl (80.0-96.0); MONO # 0.5 K/mm3 (0.0-0.8); MONO % 3.7 % (0.0-5.0); NEUTROPHILS # 8.4 K/mm3 (1.8-7.7); NEUTROPHILS % 68.3 % (36.0-66.0); PLATELET COUNT, AUTOMATED 352 k/mm3 (150-450); RED CELL DISTRIBUTION WIDTH 12.2 % (11.5-14.5); WHITE BLOOD COUNT 12.3 K/mm3 (4.0-10.0)
[2017-04-25 21:44] LABS: ALBUMIN 4.3 GM/DL (3.2-5.2); ALBUMIN/GLOBULIN RATIO 1.19 (1.00-1.93); ALKALINE PHOSPHATASE 114 U/L (45-117); ALT/SGPT 32 U/L (12-78); AMYLASE 30 U/L (25-115); ANION GAP 11 MEQ/L (8-16); AST/SGOT 13 U/L (15-37); BILIRUBIN,DIRECT 0.1 MG/DL (0.0-0.2); BILIRUBIN,TOTAL 0.5 MG/DL (0.2-1.0); BLOOD UREA NITROGEN 17 MG/DL (7-18); CALCIUM LEVEL 9.3 MG/DL (8.5-10.1); CARBON DIOXIDE LEVEL 24 MEQ/L (21-32); CHLORIDE LEVEL 108 MEQ/L (98-107); CREATININE FOR GFR 0.76 MG/DL (0.55-1.02); GLOMERULAR FILTRATION RATE > 60.0 (>60); GLUCOSE, FASTING 97 MG/DL (70-105); POTASSIUM SERUM 3.9 MEQ/L (3.5-5.1); SODIUM LEVEL 143 MEQ/L (136-145); TOTAL PROTEIN 7.9 GM/DL (6.4-8.2)
[2017-04-25] MEDS ORDERED: PERCOCET 5MG/325MG TAB PO ONE (22:15)
[2017-04-25 22:28] VITALS: BP 115/69
[2017-06-24] MEDS ORDERED: TYLE325T5 PO (18:04)
== END 2017-04-25 23:20 | disposition home or self-care (01) ==
LOC: M ED 20:10
DX: R11.2 Nausea with vomiting, unspecified (principal); R19.7 Diarrhea, unspecified; Z87.891 Personal history of nicotine dependence
CPT/HCPCS: 80048; 80076; 81001; 82150; 83605; 83690; 85025; 96374; 96375; 99283; C9113; J2765

== ENCOUNTER 2017-05-04 11:42 | Outpatient (CLI) | payer MEDICARE, OTHER ==
[~2017-05-04] VITALS: Ht 162.6 cm; Wt 99.8 kg
[~2017-05-04 11:42] MED LIST changes: +SODIUM CHLORIDE 0.9% INJ 10 ML SYR IV SCH
[2017-05-04] MEDS ORDERED: NS 1,000 ML IV SCH (12:00)
[2017-05-04 12:25] LABS: BASO % 0.5 % (0.0-1.0); EOS # 0.2 K/mm3 (0.0-0.50); EOS % 1.8 % (0.0-3.0); LARGE UNSTAINED CELL # 0.2 K/mm3 (0.0-0.4); LARGE UNSTAINED CELL % 1.5 % (0.0-4.0); LYMPH % 34.3 % (24.0-44.0); MEAN CORPUSCULAR HEMOGLOBIN 30.6 pg (27.0-33.0); MEAN CORPUSCULAR HGB CONC 33.1 g/dl (32.0-36.5); MEAN CORPUSCULAR VOLUME 92.4 fl (80.0-96.0); MONO # 0.5 K/mm3 (0.0-0.8); MONO % 4.9 % (0.0-5.0); NEUTROPHILS # 6.3 K/mm3 (1.8-7.7); NEUTROPHILS % 57.1 % (36.0-66.0); PLATELET COUNT, AUTOMATED 273 k/mm3 (150-450); RED CELL DISTRIBUTION WIDTH 12.4 % (11.5-14.5); WHITE BLOOD COUNT 11.1 K/mm3 (4.0-10.0)
[2017-05-04 13:34] LABS: ALBUMIN 4.1 GM/DL (3.2-5.2); ALBUMIN/GLOBULIN RATIO 1.37 (1.00-1.93); ALKALINE PHOSPHATASE 98 U/L (45-117); ALT/SGPT 29 U/L (12-78); ANION GAP 10 MEQ/L (8-16); AST/SGOT 10 U/L (15-37); BILIRUBIN,TOTAL 0.2 MG/DL (0.2-1.0); BLOOD UREA NITROGEN 14 MG/DL (7-18); CALCIUM LEVEL 8.7 MG/DL (8.5-10.1); CARBON DIOXIDE LEVEL 25 MEQ/L (21-32); CHLORIDE LEVEL 107 MEQ/L (98-107); CHOLESTEROL LEVEL 213 MG/DL (<200); CREATININE FOR GFR 0.63 MG/DL (0.55-1.02); GLOMERULAR FILTRATION RATE > 60.0 (>60); GLUCOSE, FASTING 83 MG/DL (70-105); SODIUM LEVEL 142 MEQ/L (136-145); TOTAL PROTEIN 7.1 GM/DL (6.4-8.2); TRIGLYCERIDES LEVEL 207 MG/DL (<150)
[2017-05-04 14:21] LABS: ERYTHROCYTE SEDIMENTATION RATE 23 mm/hr (0-20)
[2017-06-24] MEDS ORDERED: TYLE325T5 PO (18:04)
== END 2017-05-04 15:15 | disposition home or self-care (01) ==
LOC: M INFU 11:42
PROVIDERS: ATTEND Hospitalist
DX: E86.0 Dehydration (principal); K51.20 Ulcerative (chronic) proctitis without complications

== ENCOUNTER 2017-05-18 12:39 | Outpatient (CLI) | payer MEDICARE, OTHER ==
[2017-05-18] MEDS ORDERED: NS 2,000 ML IV ONE (13:00)
[2017-05-18] MEDS ORDERED: NS 2,000 ML IV SCH (13:00)
[2017-05-18 13:27] LABS: MEAN CORPUSCULAR HEMOGLOBIN 30.6 pg (27.0-33.0); MEAN CORPUSCULAR HGB CONC 32.9 g/dl (32.0-36.5); MEAN CORPUSCULAR VOLUME 93.1 fl (80.0-96.0); PLATELET COUNT, AUTOMATED 328 10^3/uL (150-450); RED CELL DISTRIBUTION WIDTH 13.1 % (11.5-14.5)
[2017-05-18 13:30] LABS: ADD MANUAL DIFFER YES; DIFF SLIDE NUMBER 124
[2017-05-18 14:17] LABS: POTASSIUM SERUM 4.1 MEQ/L (3.5-5.1)
[2017-05-18 14:31] LABS: ERYTHROCYTE SEDIMENTATION RATE 20 mm/hr (0-20)
[2017-05-18 14:32] LABS: ALBUMIN 3.7 GM/DL (3.2-5.2); ALKALINE PHOSPHATASE 112 U/L (45-117); ALT/SGPT 21 U/L (12-78); ANION GAP 6 MEQ/L (8-16); AST/SGOT 9 U/L (15-37); BILIRUBIN,TOTAL 0.3 MG/DL (0.2-1.0); BLOOD UREA NITROGEN 9 MG/DL (7-18); CALCIUM LEVEL 8.7 MG/DL (8.5-10.1); CARBON DIOXIDE LEVEL 25 MEQ/L (21-32); CHLORIDE LEVEL 108 MEQ/L (98-107); CHOLESTEROL LEVEL 221 MG/DL (<200); GLOMERULAR FILTRATION RATE > 60.0 (>60); GLUCOSE, FASTING 81 MG/DL (70-105); SODIUM LEVEL 139 MEQ/L (136-145); TOTAL PROTEIN 7.4 GM/DL (6.4-8.2); TRIGLYCERIDES LEVEL 200 MG/DL (<150)
[2017-05-18 15:07] LABS: EOSINOPHILS 4 % (0-5)
[2017-06-24] MEDS ORDERED: TYLE325T5 PO (18:04)
== END 2017-05-18 16:05 | disposition home or self-care (01) ==
LOC: M INFU 12:39
PROVIDERS: ATTEND Internal Medicine
DX: K51.20 Ulcerative (chronic) proctitis without complications (principal); E86.0 Dehydration; Z72.0 Tobacco use; Z88.3 Allergy status to other anti-infective agents; Z88.5 Allergy status to narcotic agent; Z88.8 Allergy status to other drugs, medicaments and biological substances; Z91.040 Latex allergy status; Z91.041 Radiographic dye allergy status; Z87.442 Personal history of urinary calculi; Z79.891 Long term (current) use of opiate analgesic; Z79.899 Other long term (current) drug therapy

== ENCOUNTER 2017-06-01 13:20 | Outpatient (CLI) | payer MEDICARE, OTHER ==
[~2017-06-01] VITALS: Ht 162.6 cm; Wt 83.6 kg
[~2017-06-01 13:20] MED LIST changes: +NS 1,000 ML IV ONE
[2017-06-01 14:46] LABS: MEAN CORPUSCULAR HGB CONC 32.3 g/dl (32.0-36.5); MEAN CORPUSCULAR VOLUME 92.9 fl (80.0-96.0); PLATELET COUNT, AUTOMATED 342 10^3/uL (150-450); RED CELL DISTRIBUTION WIDTH 12.5 % (11.5-14.5); WHITE BLOOD COUNT 13.7 10^3/uL (4.0-10.0)
[2017-06-01 15:03] LABS: ADD MANUAL DIFFER YES; DIFF SLIDE NUMBER 240
[2017-06-01 15:19] LABS: ALBUMIN 3.8 GM/DL (3.2-5.2); ALBUMIN/GLOBULIN RATIO 1.12 (1.00-1.93); ALKALINE PHOSPHATASE 101 U/L (45-117); ALT/SGPT 16 U/L (12-78); ANION GAP 3 MEQ/L (8-16); AST/SGOT 8 U/L (15-37); BILIRUBIN,TOTAL 0.2 MG/DL (0.2-1.0); BLOOD UREA NITROGEN 11 MG/DL (7-18); CALCIUM LEVEL 8.6 MG/DL (8.5-10.1); CARBON DIOXIDE LEVEL 28 MEQ/L (21-32); CHLORIDE LEVEL 108 MEQ/L (98-107); CHOLESTEROL LEVEL 212 MG/DL (<200); CREATININE FOR GFR 0.59 MG/DL (0.55-1.02); GLOMERULAR FILTRATION RATE > 60.0 (>60); GLUCOSE, FASTING 118 MG/DL (70-105); POTASSIUM SERUM 4.1 MEQ/L (3.5-5.1); SODIUM LEVEL 139 MEQ/L (136-145); TOTAL PROTEIN 7.2 GM/DL (6.4-8.2); TRIGLYCERIDES LEVEL 175 MG/DL (<150)
[2017-06-01 16:13] LABS: ERYTHROCYTE SEDIMENTATION RATE 15 mm/hr (0-20)
[2017-06-24] MEDS ORDERED: TYLE325T5 PO (18:04)
== END 2017-06-01 15:40 | disposition home or self-care (01) ==
LOC: M INFU 13:20
PROVIDERS: ATTEND Hospitalist
DX: K51.20 Ulcerative (chronic) proctitis without complications (principal); R19.7 Diarrhea, unspecified; K62.89 Other specified diseases of anus and rectum; K21.9 Gastro-esophageal reflux disease without esophagitis; K86.1 Other chronic pancreatitis; Z87.442 Personal history of urinary calculi; Z72.0 Tobacco use; Z88.8 Allergy status to other drugs, medicaments and biological substances; Z91.041 Radiographic dye allergy status; Z88.5 Allergy status to narcotic agent; Z91.040 Latex allergy status; Z88.3 Allergy status to other anti-infective agents; Z79.899 Other long term (current) drug therapy

== ENCOUNTER 2017-06-08 12:41 | Outpatient (CLI) | payer MEDICARE, OTHER ==
[~2017-06-08 12:41] MED LIST changes: -NS 1,000 ML IV ONE; +NS 1,000 ML IV SCH
[2017-06-24] MEDS ORDERED: TYLE325T5 PO (18:04)
== END 2017-06-08 14:30 | disposition home or self-care (01) ==
LOC: M INFU 12:41
PROVIDERS: ATTEND Internal Medicine
DX: K51.20 Ulcerative (chronic) proctitis without complications (principal); R19.7 Diarrhea, unspecified; K62.89 Other specified diseases of anus and rectum; K21.9 Gastro-esophageal reflux disease without esophagitis; K86.9 Disease of pancreas, unspecified; Z88.5 Allergy status to narcotic agent; Z91.041 Radiographic dye allergy status; Z88.8 Allergy status to other drugs, medicaments and biological substances; Z87.442 Personal history of urinary calculi; Z72.0 Tobacco use; Z79.899 Other long term (current) drug therapy

== ENCOUNTER 2017-06-29 12:40 | Outpatient (CLI) | payer MEDICARE, OTHER ==
[~2017-06-29 12:40] MED LIST changes: -NS 1,000 ML IV SCH
[2017-06-29] MEDS ORDERED: NS 1,000 ML IV ONE (13:00)
== END 2017-06-29 15:15 | disposition home or self-care (01) ==
LOC: M INFU 12:40
PROVIDERS: ATTEND Hospitalist
DX: K51.20 Ulcerative (chronic) proctitis without complications (principal); E86.0 Dehydration; Z87.442 Personal history of urinary calculi; Z72.0 Tobacco use; Z91.041 Radiographic dye allergy status; Z88.5 Allergy status to narcotic agent; Z88.8 Allergy status to other drugs, medicaments and biological substances; Z91.040 Latex allergy status; Z88.3 Allergy status to other anti-infective agents; Z91.048 Other nonmedicinal substance allergy status; Z79.899 Other long term (current) drug therapy

== ENCOUNTER 2017-07-06 13:07 | Outpatient (CLI) | payer MEDICARE, OTHER ==
[~2017-07-06 13:07] MED LIST changes: +NS 1,000 ML IV SCH
== END 2017-07-06 15:20 | disposition home or self-care (01) ==
LOC: M INFU 13:07
PROVIDERS: ATTEND Internal Medicine
DX: K51.20 Ulcerative (chronic) proctitis without complications (principal); R19.7 Diarrhea, unspecified; K62.89 Other specified diseases of anus and rectum; K21.9 Gastro-esophageal reflux disease without esophagitis; K86.1 Other chronic pancreatitis; Z91.041 Radiographic dye allergy status; Z91.040 Latex allergy status; Z88.5 Allergy status to narcotic agent; Z88.8 Allergy status to other drugs, medicaments and biological substances; Z87.442 Personal history of urinary calculi; Z72.0 Tobacco use; Z79.899 Other long term (current) drug therapy

== ENCOUNTER 2017-07-16 09:38 | Outpatient (CLI) | payer MEDICARE, OTHER ==
[~2017-07-16] VITALS: Ht 162.6 cm; Wt 83.6 kg
[~2017-07-16 09:38] MED LIST changes: +SODIUM CHLORIDE 0.9% INJ 10 ML SYR IV SCH
[2017-07-16] MEDS ORDERED: NS 1,000 ML IV SCH (10:00)
== END 2017-07-16 11:30 | disposition home or self-care (01) ==
LOC: M INFU 09:38
PROVIDERS: ATTEND Internal Medicine
DX: K51.20 Ulcerative (chronic) proctitis without complications (principal); R19.7 Diarrhea, unspecified; K62.89 Other specified diseases of anus and rectum; K21.9 Gastro-esophageal reflux disease without esophagitis; K86.1 Other chronic pancreatitis; Z87.442 Personal history of urinary calculi; Z72.0 Tobacco use; Z88.8 Allergy status to other drugs, medicaments and biological substances; Z91.041 Radiographic dye allergy status; Z88.5 Allergy status to narcotic agent; Z91.040 Latex allergy status; Z88.3 Allergy status to other anti-infective agents; Z91.048 Other nonmedicinal substance allergy status; Z79.899 Other long term (current) drug therapy

== ENCOUNTER → 2017-07-16 | Outpatient (CLI) | payer MEDICARE, OTHER ==
[~2017-07-16] MED LIST changes: -NS 1,000 ML IV SCH; -SODIUM CHLORIDE 0.9% INJ 10 ML SYR IV SCH
--- NOTE | 2017-07-16 16:12 | REP ---
Clinical: Pain with prior injury. Technique: AP, lateral, bilateral oblique views of the right ankle. Comparison: 02/27/2013. Findings: Mild swelling over the lateral malleolus may reflect acute injury. No acute fracture dislocation. Cortical irregularity along the medial malleolus remain stable and may reflect old injury. The ankle mortise appears intact. No subcutaneous emphysema. Impression: Mild lateral swelling. No acute fracture or dislocation appreciated. Signed by Walt Harper MD 07/16/2017 04:03 P
== END ==
LOC: M WUC 15:24
PROVIDERS: ATTEND Physician Assistant
DX: M25.571 Pain in right ankle and joints of right foot (principal); M25.471 Effusion, right ankle; K51.20 Ulcerative (chronic) proctitis without complications; K62.89 Other specified diseases of anus and rectum; K21.9 Gastro-esophageal reflux disease without esophagitis; K86.1 Other chronic pancreatitis; R19.7 Diarrhea, unspecified; Z87.442 Personal history of urinary calculi; Z72.0 Tobacco use; Z88.8 Allergy status to other drugs, medicaments and biological substances; Z88.5 Allergy status to narcotic agent; Z88.3 Allergy status to other anti-infective agents; Z91.040 Latex allergy status; Z91.041 Radiographic dye allergy status; Z91.048 Other nonmedicinal substance allergy status; Z79.899 Other long term (current) drug therapy

== ENCOUNTER 2017-07-20 13:20 | Outpatient (CLI) | payer MEDICARE, OTHER ==
[2017-07-20] MEDS ORDERED: NS 1,000 ML IV SCH (14:00)
== END 2017-07-20 15:35 | disposition home or self-care (01) ==
LOC: M INFU 13:20
PROVIDERS: ATTEND Internal Medicine
DX: K51.20 Ulcerative (chronic) proctitis without complications (principal); E86.0 Dehydration; Z87.442 Personal history of urinary calculi; Z88.5 Allergy status to narcotic agent; Z88.8 Allergy status to other drugs, medicaments and biological substances; Z91.041 Radiographic dye allergy status; Z91.040 Latex allergy status; Z88.3 Allergy status to other anti-infective agents; Z79.899 Other long term (current) drug therapy

== ENCOUNTER 2017-07-27 12:00 | Outpatient (CLI) | payer MEDICARE, OTHER ==
[~2017-07-27 12:00] MED LIST changes: +NS 1,000 ML IV SCH
== END 2017-07-27 14:00 | disposition home or self-care (01) ==
LOC: M INFU 12:00
PROVIDERS: ATTEND Internal Medicine
DX: K51.20 Ulcerative (chronic) proctitis without complications (principal); E86.0 Dehydration; R19.7 Diarrhea, unspecified; K62.89 Other specified diseases of anus and rectum; K21.9 Gastro-esophageal reflux disease without esophagitis; Z87.442 Personal history of urinary calculi; F17.210 Nicotine dependence, cigarettes, uncomplicated; Z88.8 Allergy status to other drugs, medicaments and biological substances; Z88.5 Allergy status to narcotic agent; Z91.041 Radiographic dye allergy status; Z91.040 Latex allergy status; Z88.3 Allergy status to other anti-infective agents; Z79.899 Other long term (current) drug therapy

== ENCOUNTER 2017-08-03 12:34 | Outpatient (CLI) | payer MEDICARE, OTHER | END 2017-08-03 14:40 | disposition home or self-care (01) | LOC: M INFU 12:34 | PROVIDERS: ATTEND Internal Medicine | DX: K51.20 Ulcerative (chronic) proctitis without complications (principal); R19.7 Diarrhea, unspecified; K62.89 Other specified diseases of anus and rectum; K21.9 Gastro-esophageal reflux disease without esophagitis; K86.1 Other chronic pancreatitis; Z87.442 Personal history of urinary calculi; Z72.0 Tobacco use; Z79.899 Other long term (current) drug therapy; Z88.5 Allergy status to narcotic agent; Z91.041 Radiographic dye allergy status; Z88.8 Allergy status to other drugs, medicaments and biological substances; Z91.040 Latex allergy status; Z88.3 Allergy status to other anti-infective agents ==

== ENCOUNTER 2017-08-10 07:58 | Outpatient (CLI) | payer MEDICARE, OTHER ==
[~2017-08-10 07:58] MED LIST changes: -NS 1,000 ML IV SCH; -SODIUM CHLORIDE 0.9% INJ 10 ML SYR IV SCH
[2017-08-10] MEDS ORDERED: NS 1,000 ML IV SCH (08:30)
[2017-08-10 08:41] LABS: BASO # 0.1 10^3/uL (0.0-0.2); BASO % 0.7 % (0.0-1.0); EOS # 0.2 10^3/uL (0.0-0.50); EOS % 1.5 % (0.0-3.0); IMMATURE GRANULOCYTE % 0.3 % (0-0); LYMPH # 3.6 10^3/uL (1.5-4.5); LYMPH % 33.8 % (24.0-44.0); MEAN CORPUSCULAR HEMOGLOBIN 29.8 pg (27.0-33.0); MEAN CORPUSCULAR HGB CONC 32.8 g/dl (32.0-36.5); MEAN CORPUSCULAR VOLUME 90.7 fl (80.0-96.0); MONO # 0.7 10^3/uL (0.0-0.8); MONO % 6.5 % (0.0-5.0); NEUTROPHILS # 6.1 10^3/uL (1.8-7.7); NEUTROPHILS % 57.2 % (36.0-66.0); PLATELET COUNT, AUTOMATED 317 10^3/uL (150-450); WHITE BLOOD COUNT 10.7 10^3/uL (4.0-10.0)
[2017-08-10] MEDS ORDERED: SODIUM CHLORIDE 0.9% INJ 10 ML SYR IV SCH (09:00)
[2017-08-10 09:12] LABS: ERYTHROCYTE SEDIMENTATION RATE 21 mm/hr (0-20)
[2017-08-10 09:20] LABS: ALKALINE PHOSPHATASE 92 U/L (45-117); ALT/SGPT 28 U/L (12-78); AST/SGOT 11 U/L (7-37); BILIRUBIN,TOTAL 0.2 MG/DL (0.2-1.0); BLOOD UREA NITROGEN 10 MG/DL (7-18); CALCIUM LEVEL 8.7 MG/DL (8.5-10.1); CARBON DIOXIDE LEVEL 25 MEQ/L (21-32); CHOLESTEROL LEVEL 190 MG/DL (<200); CREATININE FOR GFR 0.69 MG/DL (0.55-1.02); GLUCOSE, FASTING 108 MG/DL (70-105); TOTAL PROTEIN 7.5 GM/DL (6.4-8.2); TRIGLYCERIDES LEVEL 155 MG/DL (<150)
[2017-08-10 09:38] LABS: ANION GAP 7 MEQ/L (8-16); CHLORIDE LEVEL 107 MEQ/L (98-107); POTASSIUM SERUM 4.2 MEQ/L (3.5-5.1); SODIUM LEVEL 139 MEQ/L (136-145)
[2017-08-10 09:53] LABS: ALBUMIN/GLOBULIN RATIO 1.14 (1.00-1.93)
== END 2017-08-10 10:30 | disposition home or self-care (01) ==
LOC: M INFU 07:58
PROVIDERS: ATTEND Internal Medicine
DX: K51.20 Ulcerative (chronic) proctitis without complications (principal); R19.7 Diarrhea, unspecified; K62.89 Other specified diseases of anus and rectum; K21.9 Gastro-esophageal reflux disease without esophagitis; K86.1 Other chronic pancreatitis; E78.00 Pure hypercholesterolemia, unspecified; D64.9 Anemia, unspecified; F17.210 Nicotine dependence, cigarettes, uncomplicated; Z79.899 Other long term (current) drug therapy; Z79.891 Long term (current) use of opiate analgesic; Z91.040 Latex allergy status; Z91.041 Radiographic dye allergy status; Z88.5 Allergy status to narcotic agent; Z88.8 Allergy status to other drugs, medicaments and biological substances

== ENCOUNTER 2017-08-11 12:58 | Emergency (ER) | payer MEDICARE, OTHER ==
[~2017-08-11] VITALS: Ht 162.6 cm; Wt 84.1 kg
[2017-08-11 12:59] VITALS: BP 117/65
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
== END 2017-08-11 15:02 | disposition home or self-care (01) ==
LOC: M ED 12:58
DX: S93.401A Sprain of unspecified ligament of right ankle, initial encounter (principal); W10.8XXA Fall (on) (from) other stairs and steps, initial encounter; Y92.099 Unspecified place in other non-institutional residence as the place of occurrence of the external cause; Y93.01 Activity, walking, marching and hiking; Y99.9 Unspecified external cause status

== ENCOUNTER 2017-08-17 12:49 | Outpatient (CLI) | payer MEDICARE, OTHER ==
[2017-08-17] MEDS: NS 1,000 ML IV (13:08)
[2017-08-17] MEDS: SODIUM CHLORIDE 0.9% INJ 10 ML SYR IV (14:52)
== END 2017-08-17 15:00 | disposition home or self-care (01) ==
LOC: M INFU 12:49
DX: K51.20 Ulcerative (chronic) proctitis without complications (principal); R19.7 Diarrhea, unspecified; K62.89 Other specified diseases of anus and rectum; K21.9 Gastro-esophageal reflux disease without esophagitis; K86.1 Other chronic pancreatitis; Z87.442 Personal history of urinary calculi; Z72.0 Tobacco use; Z88.5 Allergy status to narcotic agent; Z88.8 Allergy status to other drugs, medicaments and biological substances; Z91.041 Radiographic dye allergy status; Z91.040 Latex allergy status; Z88.3 Allergy status to other anti-infective agents; Z79.899 Other long term (current) drug therapy
CPT/HCPCS: 96365

== ENCOUNTER → 2017-08-29 | Outpatient (REF) | payer MEDICARE, OTHER ==
[2017-09-01 14:10] LABS: HPV HYBRID CAPTURE II Positive (Negative)
== END ==
LOC: M SFHCWAGY 13:48
DX: Z12.4 Encounter for screening for malignant neoplasm of cervix (principal); Z23 Encounter for immunization
CPT/HCPCS: G0123

== ENCOUNTER 2017-08-31 12:13 | Outpatient (CLI) | payer MEDICARE, OTHER ==
[2017-08-31] MEDS: NS 1,000 ML IV (12:50)
[2017-08-31] MEDS: SODIUM CHLORIDE 0.9% INJ 10 ML SYR IV (14:21)
== END 2017-08-31 14:30 | disposition home or self-care (01) ==
LOC: M INFU 12:13
DX: K51.20 Ulcerative (chronic) proctitis without complications (principal); R19.7 Diarrhea, unspecified; K62.89 Other specified diseases of anus and rectum; K21.9 Gastro-esophageal reflux disease without esophagitis; K86.1 Other chronic pancreatitis; Z88.5 Allergy status to narcotic agent; Z91.041 Radiographic dye allergy status; Z88.8 Allergy status to other drugs, medicaments and biological substances; Z91.040 Latex allergy status; Z88.3 Allergy status to other anti-infective agents; Z79.899 Other long term (current) drug therapy
CPT/HCPCS: 96360

== ENCOUNTER 2017-09-07 12:43 | Outpatient (CLI) | payer MEDICARE, OTHER ==
[2017-09-07] MEDS: NS 1,000 ML IV (13:33)
[2017-09-07] MEDS: SODIUM CHLORIDE 0.9% INJ 10 ML SYR IV (14:45)
== END 2017-09-07 14:55 | disposition home or self-care (01) ==
LOC: M INFU 12:43
DX: K51.20 Ulcerative (chronic) proctitis without complications (principal); R19.7 Diarrhea, unspecified; K62.89 Other specified diseases of anus and rectum; K21.9 Gastro-esophageal reflux disease without esophagitis; K86.1 Other chronic pancreatitis; Z79.899 Other long term (current) drug therapy; Z91.041 Radiographic dye allergy status; Z88.8 Allergy status to other drugs, medicaments and biological substances; Z88.3 Allergy status to other anti-infective agents; Z91.040 Latex allergy status; Z88.5 Allergy status to narcotic agent
CPT/HCPCS: 96360

== ENCOUNTER → 2017-09-10 | Outpatient (REF) | payer MEDICARE, OTHER | LOC: M SFHCWAGY 10:42 | DX: R87.810 Cervical high risk human papillomavirus (HPV) DNA test positive (principal); R87.610 Atypical squamous cells of undetermined significance on cytologic smear of cervix (ASC-US) | CPT/HCPCS: 88304 ==

== ENCOUNTER 2017-09-14 08:04 | Outpatient (CLI) | payer MEDICARE, OTHER ==
[2017-09-14] MEDS: NS 1,000 ML IV (08:23)
[2017-09-14] MEDS: SODIUM CHLORIDE 0.9% INJ 10 ML SYR IV (09:54)
== END 2017-09-14 10:10 | disposition home or self-care (01) ==
LOC: M INFU 08:04
DX: K51.20 Ulcerative (chronic) proctitis without complications (principal); R19.7 Diarrhea, unspecified; K62.89 Other specified diseases of anus and rectum; K21.9 Gastro-esophageal reflux disease without esophagitis; K86.1 Other chronic pancreatitis; Z88.5 Allergy status to narcotic agent; Z91.041 Radiographic dye allergy status; Z88.8 Allergy status to other drugs, medicaments and biological substances; Z91.040 Latex allergy status; Z88.3 Allergy status to other anti-infective agents; Z79.899 Other long term (current) drug therapy
CPT/HCPCS: 96360

== ENCOUNTER 2017-09-21 13:14 | Outpatient (CLI) | payer MEDICARE, OTHER ==
[2017-09-21] MEDS: NS 1,000 ML IV ×2 (13:29)
[2017-09-21] MEDS: SODIUM CHLORIDE 0.9% INJ 10 ML SYR IV ×2 (15:04)
== END 2017-09-21 15:10 | disposition home or self-care (01) ==
LOC: M INFU 13:14
DX: K51.20 Ulcerative (chronic) proctitis without complications (principal); R19.7 Diarrhea, unspecified; K62.89 Other specified diseases of anus and rectum; K21.9 Gastro-esophageal reflux disease without esophagitis; K86.1 Other chronic pancreatitis; E78.00 Pure hypercholesterolemia, unspecified; F17.210 Nicotine dependence, cigarettes, uncomplicated; Z79.899 Other long term (current) drug therapy; Z88.3 Allergy status to other anti-infective agents; Z88.5 Allergy status to narcotic agent; Z88.6 Allergy status to analgesic agent; Z91.040 Latex allergy status; Z91.041 Radiographic dye allergy status
CPT/HCPCS: 96360

== ENCOUNTER 2017-10-05 12:54 | Outpatient (CLI) | payer MEDICARE, OTHER ==
[2017-10-05] MEDS: NS 1,000 ML IV (13:24)
[2017-10-05] MEDS: SODIUM CHLORIDE 0.9% INJ 10 ML SYR IV (14:55)
[2017-10-06] MEDS ORDERED: SODIUM CHLORIDE 0.9% INJ 10 ML SYR IV (09:00)
== END 2017-10-05 15:15 | disposition home or self-care (01) ==
LOC: M INFU 12:54
DX: K51.20 Ulcerative (chronic) proctitis without complications (principal); R19.7 Diarrhea, unspecified; K62.89 Other specified diseases of anus and rectum; K21.9 Gastro-esophageal reflux disease without esophagitis; K86.1 Other chronic pancreatitis; E78.00 Pure hypercholesterolemia, unspecified; Z87.19 Personal history of other diseases of the digestive system; Z87.442 Personal history of urinary calculi; Z90.49 Acquired absence of other specified parts of digestive tract; Z79.891 Long term (current) use of opiate analgesic; Z79.899 Other long term (current) drug therapy; Z91.040 Latex allergy status; Z91.041 Radiographic dye allergy status; Z88.5 Allergy status to narcotic agent
CPT/HCPCS: 96365

== ENCOUNTER 2017-10-12 12:44 | Outpatient (CLI) | payer MEDICARE, OTHER ==
[2017-10-12] MEDS: NS 1,000 ML IV (13:14)
[2017-10-12 13:40] LABS: HEMATOCRIT 42.2 % (36.0-47.0); HEMOGLOBIN 14.1 g/dl (12.0-16.0); MEAN CORPUSCULAR HEMOGLOBIN 30.5 pg (27.0-33.0); MEAN CORPUSCULAR HGB CONC 33.4 g/dl (32.0-36.5); MEAN CORPUSCULAR VOLUME 91.1 fl (80.0-96.0); PLATELET COUNT, AUTOMATED 478 10^3/uL (150-450); RED BLOOD COUNT 4.63 10^6/uL (4.00-5.40)
[2017-10-12 13:43] LABS: ADD MANUAL DIFFER YES; DIFF SLIDE NUMBER 192; POSITIVE DIFF POS FLAG; WHITE BLOOD COUNT 13.9 10^3/uL (4.0-10.0)
[2017-10-12 14:14] LABS: ALBUMIN 4.6 GM/DL (3.2-5.2); ALKALINE PHOSPHATASE 109 U/L (45-117); ALT/SGPT 57 U/L (12-78); ANION GAP 10 MEQ/L (8-16); AST/SGOT 14 U/L (7-37); BILIRUBIN,TOTAL 0.3 MG/DL (0.2-1.0); BLOOD UREA NITROGEN 13 MG/DL (7-18); CALCIUM LEVEL 8.9 MG/DL (8.5-10.1); CARBON DIOXIDE LEVEL 23 MEQ/L (21-32); CHLORIDE LEVEL 106 MEQ/L (98-107); CHOLESTEROL LEVEL 254 MG/DL (<200); CREATININE FOR GFR 0.82 MG/DL (0.55-1.30); GLOMERULAR FILTRATION RATE > 60.0 (>60); GLUCOSE, FASTING 116 MG/DL (70-100); HDL CHOLESTEROL 50 MG/DL (>40); LDL CHOLESTEROL 124.6 MG/DL (<100); LIPASE 145 U/L (73-393); NON-HDL-C 204 MG/DL; POTASSIUM SERUM 3.6 MEQ/L (3.5-5.1); SODIUM LEVEL 139 MEQ/L (136-145); TOTAL PROTEIN 8.8 GM/DL (6.4-8.2); TRIGLYCERIDES LEVEL 397 MG/DL (<150)
[2017-10-12 14:29] LABS: ERYTHROCYTE SEDIMENTATION RATE 18 mm/hr (0-20)
[2017-10-12] MEDS: SODIUM CHLORIDE 0.9% INJ 10 ML SYR IV (14:45)
[2017-10-12 17:09] LABS: ATYPICAL LYMPH 5 % (0-5); LYMPHOCYTES 43 % (16-52); MONOCYTES 5 % (0-8); NEUTROPHILS 47 % (35-75)
[2017-10-12 17:10] LABS: PLATELET ESTIMATE INCREASED (NORMAL)
== END 2017-10-12 15:00 | disposition home or self-care (01) ==
LOC: M INFU 12:44
DX: K51.20 Ulcerative (chronic) proctitis without complications (principal); R19.7 Diarrhea, unspecified; K62.89 Other specified diseases of anus and rectum; K21.9 Gastro-esophageal reflux disease without esophagitis; K86.1 Other chronic pancreatitis; E78.00 Pure hypercholesterolemia, unspecified; Z79.891 Long term (current) use of opiate analgesic; Z79.899 Other long term (current) drug therapy; Z91.041 Radiographic dye allergy status; Z88.8 Allergy status to other drugs, medicaments and biological substances
CPT/HCPCS: 83690

== ENCOUNTER 2017-10-19 12:37 | Outpatient (CLI) | payer MEDICARE, OTHER ==
[2017-10-19] MEDS: SODIUM CHLORIDE 0.9% INJ 10 ML SYR IV (14:43)
== END 2017-10-19 15:00 | disposition home or self-care (01) ==
LOC: M INFU 12:37
DX: R19.7 Diarrhea, unspecified (principal); K62.89 Other specified diseases of anus and rectum; K21.9 Gastro-esophageal reflux disease without esophagitis; K86.1 Other chronic pancreatitis; M19.90 Unspecified osteoarthritis, unspecified site; E78.00 Pure hypercholesterolemia, unspecified; Z79.899 Other long term (current) drug therapy; Z91.040 Latex allergy status; Z91.041 Radiographic dye allergy status; Z88.5 Allergy status to narcotic agent; Z87.442 Personal history of urinary calculi; Z87.19 Personal history of other diseases of the digestive system
CPT/HCPCS: 96365

== ENCOUNTER 2017-10-26 12:27 | Outpatient (CLI) | payer MEDICARE, OTHER ==
[2017-10-26] MEDS: NS 1,000 ML IV (13:07)
[2017-10-26] MEDS: SODIUM CHLORIDE 0.9% INJ 10 ML SYR IV (14:51)
== END 2017-10-26 14:45 | disposition home or self-care (01) ==
LOC: M INFU 12:27
DX: K51.20 Ulcerative (chronic) proctitis without complications (principal); R19.7 Diarrhea, unspecified; K62.89 Other specified diseases of anus and rectum; K21.9 Gastro-esophageal reflux disease without esophagitis; K86.1 Other chronic pancreatitis; E78.00 Pure hypercholesterolemia, unspecified; Z79.899 Other long term (current) drug therapy; Z79.891 Long term (current) use of opiate analgesic; Z91.040 Latex allergy status; Z91.041 Radiographic dye allergy status; Z88.5 Allergy status to narcotic agent
CPT/HCPCS: 96365

== ENCOUNTER 2017-11-02 07:37 | Outpatient (CLI) | payer MEDICARE, OTHER ==
[2017-11-02] MEDS: NS 1,000 ML IV (08:01)
[2017-11-02] MEDS: SODIUM CHLORIDE 0.9% INJ 10 ML SYR IV (09:33)
== END 2017-11-02 10:00 | disposition home or self-care (01) ==
LOC: M INFU 07:37
DX: K51.20 Ulcerative (chronic) proctitis without complications (principal); R19.7 Diarrhea, unspecified; K62.89 Other specified diseases of anus and rectum; K21.9 Gastro-esophageal reflux disease without esophagitis; K86.1 Other chronic pancreatitis; F17.210 Nicotine dependence, cigarettes, uncomplicated; Z79.891 Long term (current) use of opiate analgesic; Z79.899 Other long term (current) drug therapy; Z88.8 Allergy status to other drugs, medicaments and biological substances; Z91.041 Radiographic dye allergy status
CPT/HCPCS: 96360

== ENCOUNTER 2017-11-09 14:32 | Outpatient (CLI) | payer MEDICARE, OTHER ==
[2017-11-09] MEDS: NS 1,000 ML IV (15:13)
[2017-11-09] MEDS: SODIUM CHLORIDE 0.9% INJ 10 ML SYR IV (15:14)
== END 2017-11-09 16:35 | disposition home or self-care (01) ==
LOC: M INFU 14:32
DX: K51.20 Ulcerative (chronic) proctitis without complications (principal); R19.7 Diarrhea, unspecified; K62.89 Other specified diseases of anus and rectum; K21.9 Gastro-esophageal reflux disease without esophagitis; K86.1 Other chronic pancreatitis; Z88.5 Allergy status to narcotic agent; Z91.041 Radiographic dye allergy status; Z88.8 Allergy status to other drugs, medicaments and biological substances; Z88.3 Allergy status to other anti-infective agents; Z91.040 Latex allergy status; Z79.899 Other long term (current) drug therapy
CPT/HCPCS: 96360

== ENCOUNTER 2017-11-16 07:07 | Outpatient (CLI) | payer MEDICARE, OTHER ==
[2017-11-16] MEDS: NS 1,000 ML IV (07:35)
[2017-11-16] MEDS: SODIUM CHLORIDE 0.9% INJ 10 ML SYR IV (09:00)
== END 2017-11-16 09:15 | disposition home or self-care (01) ==
LOC: M INFU 07:07
DX: K51.20 Ulcerative (chronic) proctitis without complications (principal); R19.7 Diarrhea, unspecified; K62.89 Other specified diseases of anus and rectum; K21.9 Gastro-esophageal reflux disease without esophagitis; K86.1 Other chronic pancreatitis; M12.9 Arthropathy, unspecified; D64.9 Anemia, unspecified; E86.0 Dehydration; Z79.891 Long term (current) use of opiate analgesic; Z79.899 Other long term (current) drug therapy; Z88.5 Allergy status to narcotic agent; Z88.8 Allergy status to other drugs, medicaments and biological substances
CPT/HCPCS: 96360

== ENCOUNTER 2017-12-03 08:53 | Outpatient (CLI) | payer MEDICARE, OTHER ==
[2017-12-03] MEDS: NS 1,000 ML IV (09:08)
[2017-12-03] MEDS: SODIUM CHLORIDE 0.9% INJ 10 ML SYR IV (10:58)
== END 2017-12-03 11:10 | disposition home or self-care (01) ==
LOC: M INFU 08:53
DX: K51.20 Ulcerative (chronic) proctitis without complications (principal); R19.7 Diarrhea, unspecified; K62.89 Other specified diseases of anus and rectum; K21.9 Gastro-esophageal reflux disease without esophagitis; K86.1 Other chronic pancreatitis; E78.00 Pure hypercholesterolemia, unspecified; F17.210 Nicotine dependence, cigarettes, uncomplicated; Z79.891 Long term (current) use of opiate analgesic; Z79.899 Other long term (current) drug therapy; Z88.5 Allergy status to narcotic agent; Z88.8 Allergy status to other drugs, medicaments and biological substances; Z91.040 Latex allergy status; Z91.041 Radiographic dye allergy status
CPT/HCPCS: 96360

== ENCOUNTER 2017-12-10 08:34 | Outpatient (CLI) | payer MEDICARE, OTHER ==
[2017-12-10] MEDS: NS 1,000 ML IV (08:50)
[2017-12-10 09:11] LABS: HEMATOCRIT 38.7 % (36.0-47.0); HEMOGLOBIN 13.1 g/dl (12.0-15.5); MEAN CORPUSCULAR HEMOGLOBIN 30.8 pg (27.0-33.0); MEAN CORPUSCULAR HGB CONC 33.9 g/dl (32.0-36.5); MEAN CORPUSCULAR VOLUME 91.1 fl (80.0-96.0); PLATELET COUNT, AUTOMATED 417 10^3/uL (150-450); RED BLOOD COUNT 4.25 10^6/uL (4.00-5.40); RED CELL DISTRIBUTION WIDTH 12.7 % (11.5-14.5); WHITE BLOOD COUNT 13.8 10^3/uL (4.0-10.0)
[2017-12-10 09:34] LABS: ALBUMIN 3.9 GM/DL (3.2-5.2); ALKALINE PHOSPHATASE 136 U/L (45-117); AST/SGOT 18 U/L (7-37); BILIRUBIN,TOTAL 0.2 MG/DL (0.2-1.0); BLOOD UREA NITROGEN 11 MG/DL (7-18); C REACTIVE PROTEIN QUANTITATIV < 0.30 MG/DL (0.00-0.30); CALCIUM LEVEL 8.8 MG/DL (8.5-10.1); CARBON DIOXIDE LEVEL 25 MEQ/L (21-32); CHLORIDE LEVEL 108 MEQ/L (98-107); CHOLESTEROL LEVEL 259 MG/DL (<200); CREATININE FOR GFR 0.62 MG/DL (0.55-1.30); GLUCOSE, FASTING 110 MG/DL (70-100); HDL CHOLESTEROL 34 MG/DL (>40); LIPASE 130 U/L (73-393); POTASSIUM SERUM 4.2 MEQ/L (3.5-5.1); SODIUM LEVEL 139 MEQ/L (136-145)
[2017-12-10 09:46] LABS: ADD MANUAL DIFFER YES; DIFF SLIDE NUMBER 111; POSITIVE DIFF POS FLAG
[2017-12-10 09:59] LABS: EOSINOPHILS 1 % (0-5); LYMPHOCYTES 37 % (16-52); MONOCYTES 5 % (0-8); NEUTROPHILS 57 % (35-75); PLATELET ESTIMATE NORMAL (NORMAL)
[2017-12-10 10:01] LABS: ERYTHROCYTE SEDIMENTATION RATE 16 mm/hr (0-20)
[2017-12-10] MEDS: SODIUM CHLORIDE 0.9% INJ 10 ML SYR IV (10:54)
[2017-12-10 16:24] LABS: ANION GAP 6 MEQ/L (8-16); TRIGLYCERIDES LEVEL 997 MG/DL (<150)
[2017-12-10 16:26] LABS: TOTAL PROTEIN 7.8 GM/DL (6.4-8.2)
[2017-12-10 17:07] LABS: ALT/SGPT 22 U/L (12-78)
== END 2017-12-10 11:00 | disposition home or self-care (01) ==
LOC: M INFU 08:34
DX: K51.20 Ulcerative (chronic) proctitis without complications (principal); R19.7 Diarrhea, unspecified; K62.89 Other specified diseases of anus and rectum; K21.9 Gastro-esophageal reflux disease without esophagitis; K86.1 Other chronic pancreatitis; Z88.5 Allergy status to narcotic agent; Z91.041 Radiographic dye allergy status; Z91.040 Latex allergy status
CPT/HCPCS: 83690

== ENCOUNTER 2017-12-17 08:44 | Outpatient (CLI) | payer MEDICARE, OTHER ==
[2017-12-17] MEDS: NS 1,000 ML IV (09:00)
[2017-12-17] MEDS: SODIUM CHLORIDE 0.9% INJ 10 ML SYR IV (10:44)
== END 2017-12-17 11:50 | disposition home or self-care (01) ==
LOC: M INFU 08:44
DX: K51.20 Ulcerative (chronic) proctitis without complications (principal); R19.7 Diarrhea, unspecified; K62.89 Other specified diseases of anus and rectum; K21.9 Gastro-esophageal reflux disease without esophagitis; K86.1 Other chronic pancreatitis; Z87.442 Personal history of urinary calculi; Z88.5 Allergy status to narcotic agent; Z88.8 Allergy status to other drugs, medicaments and biological substances; Z91.041 Radiographic dye allergy status; Z88.3 Allergy status to other anti-infective agents; Z91.040 Latex allergy status; Z79.899 Other long term (current) drug therapy
CPT/HCPCS: 96360

== ENCOUNTER 2017-12-31 07:01 | Outpatient (CLI) | payer MEDICARE, OTHER ==
[2017-12-31] MEDS: NS 1,000 ML IV (07:22)
[2017-12-31 07:32] LABS: BASO # 0.1 10^3/uL (0.0-0.2); BASO % 0.4 % (0.0-1.0); EOS # 0.2 10^3/uL (0.0-0.50); EOS % 1.3 % (0.0-3.0); HEMATOCRIT 36.2 % (36.0-47.0); HEMOGLOBIN 12.2 g/dl (12.0-15.5); IMMATURE GRANULOCYTE % 0.2 % (0-3.0); LYMPH # 3.2 10^3/uL (1.5-4.5); LYMPH % 26.5 % (24.0-44.0); MEAN CORPUSCULAR HEMOGLOBIN 30.9 pg (27.0-33.0); MEAN CORPUSCULAR HGB CONC 33.7 g/dl (32.0-36.5); MEAN CORPUSCULAR VOLUME 91.6 fl (80.0-96.0); MONO # 0.7 10^3/uL (0.0-0.8); MONO % 6.1 % (0.0-5.0); NEUTROPHILS % 65.5 % (36.0-66.0); PLATELET COUNT, AUTOMATED 353 10^3/uL (150-450); RED BLOOD COUNT 3.95 10^6/uL (4.00-5.40); WHITE BLOOD COUNT 12.2 10^3/uL (4.0-10.0)
[2017-12-31 07:55] LABS: ERYTHROCYTE SEDIMENTATION RATE 20 mm/hr (0-20)
[2017-12-31 07:58] LABS: ALBUMIN 3.9 GM/DL (3.2-5.2); ALKALINE PHOSPHATASE 111 U/L (45-117); ALT/SGPT 18 U/L (12-78); ANION GAP 5 MEQ/L (8-16); AST/SGOT 11 U/L (7-37); BILIRUBIN,TOTAL 0.3 MG/DL (0.2-1.0); BLOOD UREA NITROGEN 10 MG/DL (7-18); CALCIUM LEVEL 8.4 MG/DL (8.5-10.1); CARBON DIOXIDE LEVEL 24 MEQ/L (21-32); CHLORIDE LEVEL 111 MEQ/L (98-107); CHOLESTEROL LEVEL 186 MG/DL (<200); CHOLESTEROL RISK RATIO 4.325 (<5); CREATININE FOR GFR 0.63 MG/DL (0.55-1.30); GLOMERULAR FILTRATION RATE > 60.0 (>60); GLUCOSE, FASTING 99 MG/DL (70-100); HDL CHOLESTEROL 43 MG/DL (>40); LDL CHOLESTEROL 105.8 MG/DL (<100); LIPASE 53 U/L (73-393); NON-HDL-C 143 MG/DL; POTASSIUM SERUM 3.5 MEQ/L (3.5-5.1); SODIUM LEVEL 140 MEQ/L (136-145); TOTAL PROTEIN 7.8 GM/DL (6.4-8.2); TRIGLYCERIDES LEVEL 186 MG/DL (<150)
[2017-12-31] MEDS: SODIUM CHLORIDE 0.9% INJ 10 ML SYR IV (09:08)
== END 2017-12-31 09:15 | disposition home or self-care (01) ==
LOC: M INFU 07:01
DX: K51.20 Ulcerative (chronic) proctitis without complications (principal); R19.7 Diarrhea, unspecified; K62.89 Other specified diseases of anus and rectum; K21.9 Gastro-esophageal reflux disease without esophagitis; K86.1 Other chronic pancreatitis
CPT/HCPCS: 83690

== ENCOUNTER 2018-01-06 19:17 | Emergency (ER) | payer MEDICARE, OTHER ==
[2018-01-06] MEDS: HYDROmorphone HCL 1 MG/ML SYRINGE (J1170) IV ×2 (22:40→23:15)
== END 2018-01-07 00:09 | disposition home or self-care (01) ==
LOC: M ED 01-07 00:09
DX: M54.17 Radiculopathy, lumbosacral region (principal); M48.00 Spinal stenosis, site unspecified; R19.7 Diarrhea, unspecified; K62.89 Other specified diseases of anus and rectum; K21.9 Gastro-esophageal reflux disease without esophagitis; K86.1 Other chronic pancreatitis; M54.41 Lumbago with sciatica, right side; G43.909 Migraine, unspecified, not intractable, without status migrainosus; M25.559 Pain in unspecified hip; M25.569 Pain in unspecified knee; F43.10 Post-traumatic stress disorder, unspecified; F41.9 Anxiety disorder, unspecified; F32.9 Major depressive disorder, single episode, unspecified; Z87.891 Personal history of nicotine dependence; Z91.041 Radiographic dye allergy status; Z88.5 Allergy status to narcotic agent; Z88.6 Allergy status to analgesic agent; Z88.4 Allergy status to anesthetic agent; Z88.1 Allergy status to other antibiotic agents; Z91.040 Latex allergy status; Z79.899 Other long term (current) drug therapy; Z91.89 Other specified personal risk factors, not elsewhere classified
CPT/HCPCS: J1170

== ENCOUNTER 2018-01-07 07:39 | Outpatient (CLI) | payer MEDICARE, OTHER ==
[2018-01-07] MEDS: NS 1,000 ML IV (08:27)
[2018-01-07] MEDS: SODIUM CHLORIDE 0.9% INJ 10 ML SYR IV (09:52)
== END 2018-01-07 10:00 | disposition home or self-care (01) ==
LOC: M INFU 07:39
DX: K51.20 Ulcerative (chronic) proctitis without complications (principal); R19.7 Diarrhea, unspecified; K62.89 Other specified diseases of anus and rectum; K21.9 Gastro-esophageal reflux disease without esophagitis; K86.1 Other chronic pancreatitis

== ENCOUNTER 2018-01-07 19:40 | Emergency (ER) | payer MEDICARE, OTHER ==
[2018-01-07] MEDS: HYDROmorphone HCL 1 MG/ML SYRINGE (J1170) IM (22:59)
[2018-01-07] MEDS: LORazepam 2 MG/ML VIAL (J2060) IM (23:00)
== END 2018-01-08 00:08 | disposition home or self-care (01) ==
LOC: M ED 01-08 00:08
DX: M54.41 Lumbago with sciatica, right side (principal); G43.909 Migraine, unspecified, not intractable, without status migrainosus; Z90.49 Acquired absence of other specified parts of digestive tract; K21.9 Gastro-esophageal reflux disease without esophagitis; M25.559 Pain in unspecified hip; M25.569 Pain in unspecified knee; F43.10 Post-traumatic stress disorder, unspecified; F41.9 Anxiety disorder, unspecified; F32.9 Major depressive disorder, single episode, unspecified; Z87.891 Personal history of nicotine dependence; Z91.041 Radiographic dye allergy status; Z88.5 Allergy status to narcotic agent; Z88.6 Allergy status to analgesic agent; Z88.4 Allergy status to anesthetic agent; Z88.1 Allergy status to other antibiotic agents; Z91.040 Latex allergy status; Z79.899 Other long term (current) drug therapy

== ENCOUNTER → 2018-01-12 | Outpatient (CLI) | payer MEDICARE, OTHER | LOC: M RAD 11:36 | DX: M51.26 Other intervertebral disc displacement, lumbar region (principal) | CPT/HCPCS: 72148 ==

== ENCOUNTER 2018-01-15 07:42 | Outpatient (CLI) | payer MEDICARE, OTHER ==
[2018-01-15] MEDS: NS 1,000 ML IV (08:06)
[2018-01-15] MEDS: SODIUM CHLORIDE 0.9% INJ 10 ML SYR IV (08:07)
== END 2018-01-15 09:30 | disposition home or self-care (01) ==
LOC: M INFU 07:42
DX: K51.20 Ulcerative (chronic) proctitis without complications (principal); R19.7 Diarrhea, unspecified; K62.89 Other specified diseases of anus and rectum; K21.9 Gastro-esophageal reflux disease without esophagitis; K86.1 Other chronic pancreatitis; Z87.442 Personal history of urinary calculi; Z91.041 Radiographic dye allergy status; Z88.8 Allergy status to other drugs, medicaments and biological substances; Z88.3 Allergy status to other anti-infective agents; Z91.040 Latex allergy status; Z88.5 Allergy status to narcotic agent; Z79.899 Other long term (current) drug therapy
CPT/HCPCS: 96360

== ENCOUNTER 2018-01-21 08:32 | Outpatient (CLI) | payer MEDICARE, OTHER ==
[2018-01-21] MEDS: NS 1,000 ML IV (09:12)
[2018-01-21] MEDS: SODIUM CHLORIDE 0.9% INJ 10 ML SYR IV (10:28)
== END 2018-01-21 11:10 | disposition home or self-care (01) ==
LOC: M INFU 08:32
DX: K51.20 Ulcerative (chronic) proctitis without complications (principal); R19.7 Diarrhea, unspecified; K62.89 Other specified diseases of anus and rectum; K21.9 Gastro-esophageal reflux disease without esophagitis; K86.1 Other chronic pancreatitis; Z91.041 Radiographic dye allergy status; Z91.040 Latex allergy status; Z88.5 Allergy status to narcotic agent; Z88.8 Allergy status to other drugs, medicaments and biological substances; Z79.899 Other long term (current) drug therapy
CPT/HCPCS: 84311

== ENCOUNTER → 2018-01-21 | Outpatient (REF) | payer MEDICARE, OTHER | LOC: M LAB REF 09:15 | DX: K51.20 Ulcerative (chronic) proctitis without complications (principal); R19.7 Diarrhea, unspecified; K86.1 Other chronic pancreatitis; K21.9 Gastro-esophageal reflux disease without esophagitis; E78.1 Pure hyperglyceridemia | CPT/HCPCS: 84311 ==

== ENCOUNTER 2018-01-28 08:30 | Outpatient (CLI) | payer MEDICARE, OTHER ==
[2018-01-28] MEDS: NS 1,000 ML IV (08:53)
[2018-01-28 09:17] LABS: BASO # 0.1 10^3/uL (0.0-0.2); BASO % 0.6 % (0.0-1.0); EOS # 0.1 10^3/uL (0.0-0.50); HEMATOCRIT 35.6 % (36.0-47.0); IMMATURE GRANULOCYTE % 0.4 % (0-3.0); LYMPH # 3.7 10^3/uL (1.5-4.5); LYMPH % 34.7 % (24.0-44.0); MEAN CORPUSCULAR HEMOGLOBIN 31.4 pg (27.0-33.0); MEAN CORPUSCULAR HGB CONC 33.7 g/dl (32.0-36.5); MEAN CORPUSCULAR VOLUME 93.2 fl (80.0-96.0); MONO # 0.7 10^3/uL (0.0-0.8); MONO % 6.3 % (0.0-5.0); NEUTROPHILS # 6.1 10^3/uL (1.8-7.7); PLATELET COUNT, AUTOMATED 306 10^3/uL (150-450); RED BLOOD COUNT 3.82 10^6/uL (4.00-5.40); RED CELL DISTRIBUTION WIDTH 12.9 % (11.5-14.5); WHITE BLOOD COUNT 10.6 10^3/uL (4.0-10.0)
[2018-01-28 09:41] LABS: ERYTHROCYTE SEDIMENTATION RATE 28 mm/hr (0-20)
[2018-01-28 10:10] LABS: ALBUMIN 3.7 GM/DL (3.2-5.2); ALBUMIN/GLOBULIN RATIO 1.12 (1.00-1.93); ALKALINE PHOSPHATASE 104 U/L (45-117); ALT/SGPT 25 U/L (12-78); ANION GAP 7 MEQ/L (8-16); AST/SGOT 15 U/L (7-37); BILIRUBIN,TOTAL 0.2 MG/DL (0.2-1.0); BLOOD UREA NITROGEN 11 MG/DL (7-18); C REACTIVE PROTEIN QUANTITATIV < 0.30 MG/DL (0.00-0.30); CALCIUM LEVEL 7.9 MG/DL (8.5-10.1); CARBON DIOXIDE LEVEL 24 MEQ/L (21-32); CHLORIDE LEVEL 109 MEQ/L (98-107); CHOLESTEROL LEVEL 222 MG/DL (<200); CHOLESTEROL RISK RATIO 8.538 (<5); CREATININE FOR GFR 0.62 MG/DL (0.55-1.30); GLOMERULAR FILTRATION RATE > 60.0 (>60); GLUCOSE, FASTING 115 MG/DL (70-100); HDL CHOLESTEROL 26 MG/DL (>40); LIPASE 84 U/L (73-393); NON-HDL-C 196 MG/DL; POTASSIUM SERUM 3.6 MEQ/L (3.5-5.1); SODIUM LEVEL 140 MEQ/L (136-145); TRIGLYCERIDES LEVEL 1003 MG/DL (<150)
[2018-01-28] MEDS: SODIUM CHLORIDE 0.9% INJ 10 ML SYR IV (10:38)
== END 2018-01-28 11:00 | disposition home or self-care (01) ==
LOC: M INFU 08:30
DX: E86.0 Dehydration (principal); R19.7 Diarrhea, unspecified; K51.20 Ulcerative (chronic) proctitis without complications; K62.89 Other specified diseases of anus and rectum; K21.9 Gastro-esophageal reflux disease without esophagitis; K86.1 Other chronic pancreatitis; Z87.442 Personal history of urinary calculi; Z91.041 Radiographic dye allergy status; Z88.8 Allergy status to other drugs, medicaments and biological substances; Z88.3 Allergy status to other anti-infective agents; Z91.040 Latex allergy status; Z88.5 Allergy status to narcotic agent; Z79.899 Other long term (current) drug therapy
CPT/HCPCS: 83690

== ENCOUNTER 2018-02-04 07:06 | Outpatient (CLI) | payer MEDICARE, OTHER ==
[2018-02-04] MEDS: NS 1,000 ML IV (07:49)
[2018-02-04] MEDS: SODIUM CHLORIDE 0.9% INJ 10 ML SYR IV (07:49)
== END 2018-02-04 09:30 | disposition home or self-care (01) ==
LOC: M INFU 07:06
DX: K51.20 Ulcerative (chronic) proctitis without complications (principal); R19.7 Diarrhea, unspecified; K62.89 Other specified diseases of anus and rectum; K21.9 Gastro-esophageal reflux disease without esophagitis; K86.1 Other chronic pancreatitis; D64.9 Anemia, unspecified; E78.00 Pure hypercholesterolemia, unspecified; M54.9 Dorsalgia, unspecified; F17.210 Nicotine dependence, cigarettes, uncomplicated; Z79.891 Long term (current) use of opiate analgesic; Z79.899 Other long term (current) drug therapy; Z87.19 Personal history of other diseases of the digestive system; Z90.710 Acquired absence of both cervix and uterus; Z87.442 Personal history of urinary calculi; Z90.49 Acquired absence of other specified parts of digestive tract
CPT/HCPCS: 96360

== ENCOUNTER 2018-02-11 06:51 | Outpatient (CLI) | payer MEDICARE, OTHER ==
[2018-02-11] MEDS: NS 1,000 ML IV (07:11)
[2018-02-11] MEDS: SODIUM CHLORIDE 0.9% INJ 10 ML SYR IV (07:11)
== END 2018-02-11 09:15 | disposition home or self-care (01) ==
LOC: M INFU 06:51
DX: E86.0 Dehydration (principal); K51.20 Ulcerative (chronic) proctitis without complications; R19.7 Diarrhea, unspecified; K62.89 Other specified diseases of anus and rectum; K21.9 Gastro-esophageal reflux disease without esophagitis; K86.1 Other chronic pancreatitis; Z87.442 Personal history of urinary calculi; Z91.041 Radiographic dye allergy status; Z88.8 Allergy status to other drugs, medicaments and biological substances; Z88.3 Allergy status to other anti-infective agents; Z91.040 Latex allergy status; Z88.5 Allergy status to narcotic agent; Z79.899 Other long term (current) drug therapy
CPT/HCPCS: 96360

== ENCOUNTER 2018-02-25 06:45 | Outpatient (CLI) | payer MEDICARE, OTHER ==
[2018-02-25] MEDS: NS 1,000 ML IV (07:15)
[2018-02-25] MEDS ORDERED: SODIUM CHLORIDE 0.9% INJ 10 ML SYR IV (09:00)
== END 2018-02-25 08:45 | disposition home or self-care (01) ==
LOC: M INFU 06:45
DX: E86.0 Dehydration (principal); K51.20 Ulcerative (chronic) proctitis without complications; R19.7 Diarrhea, unspecified; K62.89 Other specified diseases of anus and rectum; K21.9 Gastro-esophageal reflux disease without esophagitis; K86.1 Other chronic pancreatitis; Z91.041 Radiographic dye allergy status; Z88.8 Allergy status to other drugs, medicaments and biological substances; Z88.3 Allergy status to other anti-infective agents; Z91.040 Latex allergy status; Z88.5 Allergy status to narcotic agent; Z79.899 Other long term (current) drug therapy
CPT/HCPCS: 96360

== ENCOUNTER 2018-03-18 08:08 | Outpatient (CLI) | payer MEDICARE, OTHER ==
[2018-03-18] MEDS: NS 1,000 ML IV (08:27)
[2018-03-18] MEDS: SODIUM CHLORIDE 0.9% INJ 10 ML SYR IV (10:31)
== END 2018-03-18 10:35 | disposition home or self-care (01) ==
LOC: M INFU 08:08
DX: K51.20 Ulcerative (chronic) proctitis without complications (principal); R19.7 Diarrhea, unspecified; K62.89 Other specified diseases of anus and rectum; K21.9 Gastro-esophageal reflux disease without esophagitis; K86.1 Other chronic pancreatitis; Z79.899 Other long term (current) drug therapy; Z91.041 Radiographic dye allergy status; Z88.8 Allergy status to other drugs, medicaments and biological substances; Z88.3 Allergy status to other anti-infective agents; Z91.040 Latex allergy status; Z88.5 Allergy status to narcotic agent
CPT/HCPCS: 96360

== ENCOUNTER 2018-03-25 08:16 | Outpatient (CLI) | payer MEDICARE, OTHER ==
[2018-03-25] MEDS: NS 1,000 ML IV ×2 (08:38)
[2018-03-25] MEDS: SODIUM CHLORIDE 0.9% INJ 10 ML SYR IV ×2 (08:39)
== END 2018-03-25 10:15 | disposition home or self-care (01) ==
LOC: M INFU 08:16
DX: K51.20 Ulcerative (chronic) proctitis without complications (principal); R19.7 Diarrhea, unspecified; K62.89 Other specified diseases of anus and rectum; K21.9 Gastro-esophageal reflux disease without esophagitis; K86.1 Other chronic pancreatitis; Z91.041 Radiographic dye allergy status; Z88.8 Allergy status to other drugs, medicaments and biological substances; Z88.3 Allergy status to other anti-infective agents; Z88.5 Allergy status to narcotic agent; Z91.040 Latex allergy status; Z79.899 Other long term (current) drug therapy
CPT/HCPCS: 96360

== ENCOUNTER 2018-04-01 08:01 | Outpatient (CLI) | payer MEDICARE, OTHER ==
[2018-04-01] MEDS: NS 1,000 ML IV (08:22)
[2018-04-01] MEDS: SODIUM CHLORIDE 0.9% INJ 10 ML SYR IV (09:54)
== END 2018-04-01 10:30 | disposition home or self-care (01) ==
LOC: M INFU 08:01
DX: K51.20 Ulcerative (chronic) proctitis without complications (principal); R19.7 Diarrhea, unspecified; K62.89 Other specified diseases of anus and rectum; K21.9 Gastro-esophageal reflux disease without esophagitis; K86.1 Other chronic pancreatitis; Z79.899 Other long term (current) drug therapy; Z91.041 Radiographic dye allergy status; Z88.8 Allergy status to other drugs, medicaments and biological substances; Z88.3 Allergy status to other anti-infective agents; Z91.040 Latex allergy status; Z88.5 Allergy status to narcotic agent
CPT/HCPCS: 96360

== ENCOUNTER 2018-04-07 18:51 | Emergency (ER) | payer MEDICARE, OTHER ==
[2018-04-07] MEDS: valACYclovir HCL 500 MG TAB PO (20:35)
[2018-04-07] MEDS: HYDROMORPHONE HCL 0.5 MG/ 0.5 ML SYRINGE (J1170 PER 1) IM (20:35)
== END 2018-04-07 21:20 | disposition home or self-care (01) ==
LOC: M ED 18:51
DX: B02.9 Zoster without complications (principal); K50.90 Crohn's disease, unspecified, without complications; Z91.041 Radiographic dye allergy status; Z88.8 Allergy status to other drugs, medicaments and biological substances; Z88.5 Allergy status to narcotic agent; Z91.040 Latex allergy status; Z86.69 Personal history of other diseases of the nervous system and sense organs
CPT/HCPCS: J1170

== ENCOUNTER 2018-04-16 10:03 | Outpatient (CLI) | payer MEDICARE, OTHER ==
[2018-04-16] MEDS: NS 1,000 ML IV (10:37)
[2018-04-16] MEDS: SODIUM CHLORIDE 0.9% INJ 10 ML SYR IV (10:40)
[2018-04-16 10:48] LABS: BASO # 0.1 10^3/uL (0.0-0.2); BASO % 0.4 % (0.0-1.0); EOS # 0.1 10^3/uL (0.0-0.50); EOS % 0.9 % (0.0-3.0); HEMATOCRIT 34.7 % (36.0-47.0); HEMOGLOBIN 11.7 g/dl (12.0-15.5); IMMATURE GRANULOCYTE % 0.5 % (0-3.0); LYMPH # 3.6 10^3/uL (1.5-4.5); LYMPH % 21.7 % (24.0-44.0); MEAN CORPUSCULAR HEMOGLOBIN 31.5 pg (27.0-33.0); MEAN CORPUSCULAR HGB CONC 33.7 g/dl (32.0-36.5); MEAN CORPUSCULAR VOLUME 93.3 fl (80.0-96.0); NEUTROPHILS # 11.6 10^3/uL (1.8-7.7); NEUTROPHILS % 70.5 % (36.0-66.0); PLATELET COUNT, AUTOMATED 287 10^3/uL (150-450); RED BLOOD COUNT 3.72 10^6/uL (4.00-5.40); RED CELL DISTRIBUTION WIDTH 12.8 % (11.5-14.5); WHITE BLOOD COUNT 16.5 10^3/uL (4.0-10.0)
[2018-04-16 11:14] LABS: ERYTHROCYTE SEDIMENTATION RATE 45 mm/hr (0-20)
[2018-04-16 11:16] LABS: ALBUMIN 3.6 GM/DL (3.2-5.2); ALKALINE PHOSPHATASE 95 U/L (45-117); ALT/SGPT 16 U/L (12-78); ANION GAP 7 MEQ/L (8-16); AST/SGOT 8 U/L (7-37); BILIRUBIN,TOTAL 0.2 MG/DL (0.2-1.0); BLOOD UREA NITROGEN 11 MG/DL (7-18); C REACTIVE PROTEIN QUANTITATIV 0.43 MG/DL (0.00-0.30); CALCIUM LEVEL 8.7 MG/DL (8.5-10.1); CARBON DIOXIDE LEVEL 24 MEQ/L (21-32); CHLORIDE LEVEL 109 MEQ/L (98-107); CHOLESTEROL LEVEL 181 MG/DL (<200); CHOLESTEROL RISK RATIO 4.309 (<5); GLOMERULAR FILTRATION RATE > 60.0 (>60); GLUCOSE, FASTING 106 MG/DL (70-100); HDL CHOLESTEROL 42 MG/DL (>40); LDL CHOLESTEROL 108.2 MG/DL (<100); LIPASE 75 U/L (73-393); NON-HDL-C 139 MG/DL; POTASSIUM SERUM 3.6 MEQ/L (3.5-5.1); SODIUM LEVEL 140 MEQ/L (136-145); TOTAL PROTEIN 7.6 GM/DL (6.4-8.2); TRIGLYCERIDES LEVEL 154 MG/DL (<150)
== END 2018-04-16 12:15 | disposition home or self-care (01) ==
LOC: M INFU 10:03
DX: K51.20 Ulcerative (chronic) proctitis without complications (principal); R19.7 Diarrhea, unspecified; K62.89 Other specified diseases of anus and rectum; K21.9 Gastro-esophageal reflux disease without esophagitis; K86.1 Other chronic pancreatitis; G43.909 Migraine, unspecified, not intractable, without status migrainosus; R10.9 Unspecified abdominal pain; K44.9 Diaphragmatic hernia without obstruction or gangrene; Z87.440 Personal history of urinary (tract) infections; H93.13 Tinnitus, bilateral; M19.90 Unspecified osteoarthritis, unspecified site; M54.89 Other dorsalgia; F41.9 Anxiety disorder, unspecified; F32.9 Major depressive disorder, single episode, unspecified; F43.10 Post-traumatic stress disorder, unspecified; Z79.899 Other long term (current) drug therapy; Z91.041 Radiographic dye allergy status; Z88.8 Allergy status to other drugs, medicaments and biological substances; Z91.040 Latex allergy status; Z88.3 Allergy status to other anti-infective agents; Z88.1 Allergy status to other antibiotic agents; Z88.5 Allergy status to narcotic agent
CPT/HCPCS: 83690

== ENCOUNTER 2018-04-24 14:57 | Outpatient (CLI) | payer MEDICARE, OTHER ==
[2018-04-24] MEDS: NS 1,000 ML IV (15:10)
[2018-04-24] MEDS: SODIUM CHLORIDE 0.9% INJ 10 ML SYR IV (17:10)
== END 2018-04-24 17:15 | disposition home or self-care (01) ==
LOC: M INFU 14:57
DX: E86.0 Dehydration (principal); K51.20 Ulcerative (chronic) proctitis without complications; R19.7 Diarrhea, unspecified; K62.89 Other specified diseases of anus and rectum; K21.9 Gastro-esophageal reflux disease without esophagitis; K86.1 Other chronic pancreatitis; G43.909 Migraine, unspecified, not intractable, without status migrainosus; J44.9 Chronic obstructive pulmonary disease, unspecified; D64.9 Anemia, unspecified; F32.9 Major depressive disorder, single episode, unspecified; N20.0 Calculus of kidney; H93.19 Tinnitus, unspecified ear; F43.10 Post-traumatic stress disorder, unspecified; M15.9 Polyosteoarthritis, unspecified; N97.1 Female infertility of tubal origin; Z79.891 Long term (current) use of opiate analgesic; Z79.899 Other long term (current) drug therapy; Z88.8 Allergy status to other drugs, medicaments and biological substances; Z91.040 Latex allergy status; Z91.041 Radiographic dye allergy status; Z90.49 Acquired absence of other specified parts of digestive tract
CPT/HCPCS: 96360

== ENCOUNTER 2018-04-29 09:11 | Outpatient (CLI) | payer MEDICARE, OTHER ==
[2018-04-29] MEDS: NS 1,000 ML IV (09:20)
[2018-04-29 09:41] LABS: BASO # 0.1 10^3/uL (0.0-0.2); BASO % 0.5 % (0.0-1.0); EOS # 0.3 10^3/uL (0.0-0.50); EOS % 2.2 % (0.0-3.0); HEMATOCRIT 37.3 % (36.0-47.0); HEMOGLOBIN 12.5 g/dl (12.0-15.5); IMMATURE GRANULOCYTE % 0.3 % (0-3.0); LYMPH # 3.3 10^3/uL (1.5-4.5); MEAN CORPUSCULAR HEMOGLOBIN 31.4 pg (27.0-33.0); MEAN CORPUSCULAR HGB CONC 33.5 g/dl (32.0-36.5); MEAN CORPUSCULAR VOLUME 93.7 fl (80.0-96.0); MONO # 0.6 10^3/uL (0.0-0.8); MONO % 5.4 % (0.0-5.0); NEUTROPHILS # 7.1 10^3/uL (1.8-7.7); NEUTROPHILS % 62.6 % (36.0-66.0); PLATELET COUNT, AUTOMATED 361 10^3/uL (150-450); RED BLOOD COUNT 3.98 10^6/uL (4.00-5.40); RED CELL DISTRIBUTION WIDTH 13.2 % (11.5-14.5); WHITE BLOOD COUNT 11.4 10^3/uL (4.0-10.0)
[2018-04-29 10:03] LABS: ERYTHROCYTE SEDIMENTATION RATE 49 mm/hr (0-20)
[2018-04-29 11:19] LABS: ALBUMIN 3.5 GM/DL (3.2-5.2); ALBUMIN/GLOBULIN RATIO 0.85 (1.00-1.93); ALKALINE PHOSPHATASE 105 U/L (45-117); ANION GAP 7 MEQ/L (8-16); AST/SGOT 15 U/L (7-37); BILIRUBIN,TOTAL 0.2 MG/DL (0.2-1.0); BLOOD UREA NITROGEN 8 MG/DL (7-18); CALCIUM LEVEL 8.4 MG/DL (8.5-10.1); CARBON DIOXIDE LEVEL 26 MEQ/L (21-32); CHLORIDE LEVEL 107 MEQ/L (98-107); CHOLESTEROL LEVEL 251 MG/DL (<200); CHOLESTEROL RISK RATIO 9.296 (<5); CREATININE FOR GFR 0.67 MG/DL (0.55-1.30); GLOMERULAR FILTRATION RATE > 60.0 (>60); GLUCOSE, FASTING 110 MG/DL (70-100); HDL CHOLESTEROL 27 MG/DL (>40); LIPASE 82 U/L (73-393); NON-HDL-C 224 MG/DL; POTASSIUM SERUM 3.9 MEQ/L (3.5-5.1); SODIUM LEVEL 140 MEQ/L (136-145); TOTAL PROTEIN 7.6 GM/DL (6.4-8.2); TRIGLYCERIDES LEVEL 1279 MG/DL (<150)
[2018-04-29] MEDS: SODIUM CHLORIDE 0.9% INJ 10 ML SYR IV (11:23)
[2018-04-29 11:25] LABS: ALT/SGPT 35 U/L (12-78)
== END 2018-04-29 11:30 | disposition home or self-care (01) ==
LOC: M INFU 09:11
DX: E86.0 Dehydration (principal); K51.20 Ulcerative (chronic) proctitis without complications; R19.7 Diarrhea, unspecified; K86.1 Other chronic pancreatitis; K21.9 Gastro-esophageal reflux disease without esophagitis; K62.89 Other specified diseases of anus and rectum; Z79.891 Long term (current) use of opiate analgesic; Z79.899 Other long term (current) drug therapy; Z91.040 Latex allergy status; Z91.041 Radiographic dye allergy status; Z88.8 Allergy status to other drugs, medicaments and biological substances
CPT/HCPCS: 83690

== ENCOUNTER 2018-05-06 10:28 | Outpatient (CLI) | payer MEDICARE, OTHER ==
[2018-05-06] MEDS: NS 1,000 ML IV (10:52)
[2018-05-06] MEDS: SODIUM CHLORIDE 0.9% INJ 10 ML SYR IV (12:35)
== END 2018-05-06 12:45 | disposition home or self-care (01) ==
LOC: M INFU 10:28
DX: E86.0 Dehydration (principal); K51.20 Ulcerative (chronic) proctitis without complications; R19.7 Diarrhea, unspecified; K62.89 Other specified diseases of anus and rectum; K21.9 Gastro-esophageal reflux disease without esophagitis; K86.1 Other chronic pancreatitis; Z79.891 Long term (current) use of opiate analgesic; Z79.899 Other long term (current) drug therapy; Z88.5 Allergy status to narcotic agent

== ENCOUNTER 2018-05-06 19:18 | Emergency (ER) | payer MEDICARE, OTHER ==
[2018-05-06 21:00] LABS: HEMATOCRIT 44.8 % (36.0-47.0); HEMOGLOBIN 15.1 g/dl (12.0-15.5); MEAN CORPUSCULAR HEMOGLOBIN 30.6 pg (27.0-33.0); MEAN CORPUSCULAR HGB CONC 33.7 g/dl (32.0-36.5); MEAN CORPUSCULAR VOLUME 90.9 fl (80.0-96.0); PLATELET COUNT, AUTOMATED 384 10^3/uL (150-450); RED BLOOD COUNT 4.93 10^6/uL (4.00-5.40); RED CELL DISTRIBUTION WIDTH 12.8 % (11.5-14.5)
[2018-05-06 21:03] LABS: ADD MANUAL DIFFER YES; DIFF SLIDE NUMBER 427; POSITIVE DIFF POS FLAG; POSITIVE MORPH POS FLAG; WHITE BLOOD COUNT 13.9 10^3/uL (4.0-10.0)
[2018-05-06 21:35] LABS: ANION GAP 10 MEQ/L (8-16); BLOOD UREA NITROGEN 16 MG/DL (7-18); CALCIUM LEVEL 9.7 MG/DL (8.5-10.1); CARBON DIOXIDE LEVEL 20 MEQ/L (21-32); CHLORIDE LEVEL 104 MEQ/L (98-107); CREATININE FOR GFR 0.71 MG/DL (0.55-1.30); GLOMERULAR FILTRATION RATE > 60.0 (>60); GLUCOSE, FASTING 103 MG/DL (70-100); SODIUM LEVEL 134 MEQ/L (136-145)
[2018-05-06 21:38] LABS: ATYPICAL LYMPH 8 % (0-5); BASOPHILS 1 % (0-4); LYMPHOCYTES 46 % (16-52); MONOCYTES 7 % (0-8); NEUTROPHILS 38 % (35-75)
[2018-05-06 21:39] LABS: PLATELET ESTIMATE NORMAL (NORMAL)
[2018-05-06 23:46] LABS: ALBUMIN 4.7 GM/DL (3.2-5.2); ALBUMIN/GLOBULIN RATIO 0.96 (1.00-1.93); ALKALINE PHOSPHATASE 134 U/L (45-117); ALT/SGPT 39 U/L (12-78); AST/SGOT 11 U/L (7-37); BILIRUBIN,DIRECT 0.1 MG/DL (0.0-0.2); BILIRUBIN,TOTAL 0.7 MG/DL (0.2-1.0); LIPASE 125 U/L (73-393); TOTAL PROTEIN 9.6 GM/DL (6.4-8.2)
[2018-05-07] MEDS: ONDANSETRON 4MG/2ML VIAL (J2405) IV (00:08)
[2018-05-07] MEDS: NS 1,000 ML IV (00:08)
[2018-05-07] MEDS: KETOROLAC 30 MG/ML VIAL (J1885) IV (00:09)
[2018-05-07 00:16] LABS: C REACTIVE PROTEIN QUANTITATIV < 0.30 MG/DL (0.00-0.30); CPK CREATINE PHOSPHOKINASE 69 U/L (26-192); MAGNESIUM LEVEL 2.3 MG/DL (1.8-2.4)
[2018-05-07 00:26] LABS: ERYTHROCYTE SEDIMENTATION RATE 33 mm/hr (0-20)
[2018-05-07] MEDS: MORPHINE 4 MG/ML 1ML VIAL/SYRINGE (J2270) IV (01:49)
== END 2018-05-07 02:06 | disposition home or self-care (01) ==
LOC: M ED 05-07 02:06
DX: R25.2 Cramp and spasm (principal); R10.9 Unspecified abdominal pain; G89.29 Other chronic pain; E86.0 Dehydration; K51.20 Ulcerative (chronic) proctitis without complications; R19.7 Diarrhea, unspecified; K62.89 Other specified diseases of anus and rectum; K86.1 Other chronic pancreatitis; Z87.19 Personal history of other diseases of the digestive system; Z90.49 Acquired absence of other specified parts of digestive tract; Z79.899 Other long term (current) drug therapy; Z88.5 Allergy status to narcotic agent; Z91.041 Radiographic dye allergy status; Z88.8 Allergy status to other drugs, medicaments and biological substances; Z91.040 Latex allergy status
CPT/HCPCS: J2270

== ENCOUNTER 2018-05-13 07:26 | Outpatient (CLI) | payer MEDICARE, OTHER ==
[2018-05-13 08:00] LABS: HEMATOCRIT 38.2 % (36.0-47.0); HEMOGLOBIN 12.9 g/dl (12.0-15.5); MEAN CORPUSCULAR HEMOGLOBIN 31.1 pg (27.0-33.0); MEAN CORPUSCULAR HGB CONC 33.8 g/dl (32.0-36.5); PLATELET COUNT, AUTOMATED 276 10^3/uL (150-450); RED BLOOD COUNT 4.15 10^6/uL (4.00-5.40); RED CELL DISTRIBUTION WIDTH 12.8 % (11.5-14.5)
[2018-05-13 08:03] LABS: ADD MANUAL DIFFER YES; DIFF SLIDE NUMBER 91; POSITIVE DIFF POS FLAG
[2018-05-13] MEDS: NS 1,000 ML IV (08:23)
[2018-05-13 09:01] LABS: ATYPICAL LYMPH 2 % (0-5); EOSINOPHILS 1 % (0-5); LYMPHOCYTES 56 % (16-52); MONOCYTES 4 % (0-8); NEUTROPHILS 37 % (35-75); PLATELET ESTIMATE NORMAL (NORMAL)
[2018-05-13 09:02] LABS: ANISOCYTOSIS 1+
[2018-05-13] MEDS: SODIUM CHLORIDE 0.9% INJ 10 ML SYR IV (09:48)
[2018-05-13 10:10] LABS: ALBUMIN 3.7 GM/DL (3.2-5.2); ALKALINE PHOSPHATASE 90 U/L (45-117); ANION GAP 9 MEQ/L (8-16); BILIRUBIN,TOTAL 0.2 MG/DL (0.2-1.0); BLOOD UREA NITROGEN 6 MG/DL (7-18); C REACTIVE PROTEIN QUANTITATIV < 0.30 MG/DL (0.00-0.30); CARBON DIOXIDE LEVEL 24 MEQ/L (21-32); CHLORIDE LEVEL 108 MEQ/L (98-107); CHOLESTEROL LEVEL 236 MG/DL (<200); CHOLESTEROL RISK RATIO 8.137 (<5); CREATININE FOR GFR 0.66 MG/DL (0.55-1.30); GLOMERULAR FILTRATION RATE > 60.0 (>60); GLUCOSE, FASTING 111 MG/DL (70-100); HDL CHOLESTEROL 29 MG/DL (>40); LIPASE 58 U/L (73-393); NON-HDL-C 207 MG/DL; POTASSIUM SERUM 3.8 MEQ/L (3.5-5.1); SODIUM LEVEL 141 MEQ/L (136-145); TOTAL PROTEIN 7.4 GM/DL (6.4-8.2); TRIGLYCERIDES LEVEL 1124 MG/DL (<150)
[2018-05-13 10:17] LABS: AST/SGOT 14 U/L (7-37)
[2018-05-13 10:24] LABS: ALT/SGPT 25 U/L (12-78)
[2018-05-13 11:06] LABS: ERYTHROCYTE SEDIMENTATION RATE 17 mm/hr (0-20)
== END 2018-05-13 09:55 | disposition home or self-care (01) ==
LOC: M INFU 07:26
DX: E86.0 Dehydration (principal); R19.7 Diarrhea, unspecified; K62.89 Other specified diseases of anus and rectum; K21.9 Gastro-esophageal reflux disease without esophagitis; K86.1 Other chronic pancreatitis; K51.20 Ulcerative (chronic) proctitis without complications; G43.909 Migraine, unspecified, not intractable, without status migrainosus; F41.9 Anxiety disorder, unspecified; F32.9 Major depressive disorder, single episode, unspecified; D64.9 Anemia, unspecified; Z79.891 Long term (current) use of opiate analgesic; Z79.899 Other long term (current) drug therapy; Z91.040 Latex allergy status; Z91.041 Radiographic dye allergy status; Z88.5 Allergy status to narcotic agent
CPT/HCPCS: 83690

== ENCOUNTER 2018-05-14 21:56 | Emergency (ER) | payer MEDICARE, OTHER | END 2018-05-14 22:50 | disposition home or self-care (01) | LOC: M ED 21:56 | DX: S93.402A Sprain of unspecified ligament of left ankle, initial encounter (principal); X50.1XXA Overexertion from prolonged static or awkward postures, initial encounter; Y92.099 Unspecified place in other non-institutional residence as the place of occurrence of the external cause; Y93.89 Activity, other specified; Y99.9 Unspecified external cause status; G43.909 Migraine, unspecified, not intractable, without status migrainosus; K51.90 Ulcerative colitis, unspecified, without complications; F43.10 Post-traumatic stress disorder, unspecified; M54.9 Dorsalgia, unspecified; Z87.442 Personal history of urinary calculi; Z79.899 Other long term (current) drug therapy; Z91.040 Latex allergy status; Z88.6 Allergy status to analgesic agent; Z91.041 Radiographic dye allergy status; Z88.5 Allergy status to narcotic agent; Z91.89 Other specified personal risk factors, not elsewhere classified | CPT/HCPCS: 73610 ==

== ENCOUNTER 2018-05-20 08:08 | Outpatient (CLI) | payer MEDICARE, OTHER ==
[2018-05-20] MEDS: NS 1,000 ML IV (08:45)
[2018-05-20] MEDS: SODIUM CHLORIDE 0.9% INJ 10 ML SYR IV (10:15)
== END 2018-05-20 10:20 | disposition home or self-care (01) ==
LOC: M INFU 08:08
DX: K51.20 Ulcerative (chronic) proctitis without complications (principal); R19.7 Diarrhea, unspecified; K62.89 Other specified diseases of anus and rectum; K21.9 Gastro-esophageal reflux disease without esophagitis; K86.1 Other chronic pancreatitis; Z91.041 Radiographic dye allergy status; Z91.040 Latex allergy status; Z88.5 Allergy status to narcotic agent
CPT/HCPCS: 96360

== ENCOUNTER 2018-05-27 06:47 | Outpatient (CLI) | payer MEDICARE, OTHER ==
[2018-05-27] MEDS: NS 1,000 ML IV (07:08)
[2018-05-27] MEDS: SODIUM CHLORIDE 0.9% INJ 10 ML SYR IV (07:10)
[2018-05-27 07:28] LABS: BASO # 0.1 10^3/uL (0.0-0.2); BASO % 0.6 % (0.0-1.0); EOS # 0.2 10^3/uL (0.0-0.50); EOS % 1.6 % (0.0-3.0); HEMATOCRIT 39.5 % (36.0-47.0); HEMOGLOBIN 12.8 g/dl (12.0-15.5); IMMATURE GRANULOCYTE % 0.4 % (0-3.0); LYMPH # 3.6 10^3/uL (1.5-4.5); LYMPH % 30.6 % (24.0-44.0); MEAN CORPUSCULAR HEMOGLOBIN 30.5 pg (27.0-33.0); MEAN CORPUSCULAR HGB CONC 32.4 g/dl (32.0-36.5); MEAN CORPUSCULAR VOLUME 94.3 fl (80.0-96.0); MONO # 0.7 10^3/uL (0.0-0.8); MONO % 6.1 % (0.0-5.0); NEUTROPHILS # 7.1 10^3/uL (1.8-7.7); NEUTROPHILS % 60.7 % (36.0-66.0); PLATELET COUNT, AUTOMATED 348 10^3/uL (150-450); RED BLOOD COUNT 4.19 10^6/uL (4.00-5.40); RED CELL DISTRIBUTION WIDTH 13.3 % (11.5-14.5); WHITE BLOOD COUNT 11.7 10^3/uL (4.0-10.0)
[2018-05-27 07:56] LABS: ALBUMIN 3.8 GM/DL (3.2-5.2); ALBUMIN/GLOBULIN RATIO 1.09 (1.00-1.93); ALKALINE PHOSPHATASE 102 U/L (45-117); ALT/SGPT 24 U/L (12-78); ANION GAP 5 MEQ/L (8-16); AST/SGOT 13 U/L (7-37); BILIRUBIN,TOTAL 0.2 MG/DL (0.2-1.0); BLOOD UREA NITROGEN 8 MG/DL (7-18); C REACTIVE PROTEIN QUANTITATIV 0.38 MG/DL (0.00-0.30); CALCIUM LEVEL 8.8 MG/DL (8.5-10.1); CARBON DIOXIDE LEVEL 26 MEQ/L (21-32); CHLORIDE LEVEL 108 MEQ/L (98-107); CHOLESTEROL LEVEL 272 MG/DL (<200); CHOLESTEROL RISK RATIO 7.157 (<5); CREATININE FOR GFR 0.59 MG/DL (0.55-1.30); GLOMERULAR FILTRATION RATE > 60.0 (>60); GLUCOSE, FASTING 99 MG/DL (70-100); HDL CHOLESTEROL 38 MG/DL (>40); LIPASE 60 U/L (73-393); NON-HDL-C 234 MG/DL; POTASSIUM SERUM 4.3 MEQ/L (3.5-5.1); SODIUM LEVEL 139 MEQ/L (136-145); TOTAL PROTEIN 7.3 GM/DL (6.4-8.2); TRIGLYCERIDES LEVEL 586 MG/DL (<150)
[2018-05-27 07:58] LABS: ERYTHROCYTE SEDIMENTATION RATE 41 mm/hr (0-20)
== END 2018-05-27 09:00 | disposition home or self-care (01) ==
LOC: M INFU 06:47
DX: E86.0 Dehydration (principal); R19.7 Diarrhea, unspecified; K62.89 Other specified diseases of anus and rectum; K21.9 Gastro-esophageal reflux disease without esophagitis; K86.1 Other chronic pancreatitis; K51.20 Ulcerative (chronic) proctitis without complications; G43.909 Migraine, unspecified, not intractable, without status migrainosus; F41.9 Anxiety disorder, unspecified; F32.9 Major depressive disorder, single episode, unspecified; D64.9 Anemia, unspecified; Z79.891 Long term (current) use of opiate analgesic; Z79.899 Other long term (current) drug therapy; Z88.8 Allergy status to other drugs, medicaments and biological substances; Z91.040 Latex allergy status; Z91.041 Radiographic dye allergy status; Z88.5 Allergy status to narcotic agent
CPT/HCPCS: 83690

== ENCOUNTER 2018-05-28 19:41 | Emergency (ER) | payer MEDICARE, OTHER ==
[2018-05-28 21:46] LABS: HEMATOCRIT 38.7 % (36.0-47.0); HEMOGLOBIN 12.8 g/dl (12.0-15.5); MEAN CORPUSCULAR HEMOGLOBIN 30.7 pg (27.0-33.0); MEAN CORPUSCULAR HGB CONC 33.1 g/dl (32.0-36.5); MEAN CORPUSCULAR VOLUME 92.8 fl (80.0-96.0); PLATELET COUNT, AUTOMATED 371 10^3/uL (150-450); RED BLOOD COUNT 4.17 10^6/uL (4.00-5.40); RED CELL DISTRIBUTION WIDTH 13.2 % (11.5-14.5); WHITE BLOOD COUNT 16.6 10^3/uL (4.0-10.0)
[2018-05-28 21:47] LABS: ADD MANUAL DIFFER YES; DIFF SLIDE NUMBER 425; POSITIVE DIFF POS FLAG; POSITIVE MORPH POS FLAG
[2018-05-28 22:13] LABS: ATYPICAL LYMPH 2 % (0-5); LYMPHOCYTES 33 % (16-52); MONOCYTES 4 % (0-8); NEUTROPHILS 61 % (35-75)
[2018-05-28 22:14] LABS: PLATELET ESTIMATE NORMAL (NORMAL)
[2018-05-28] MEDS: cefTRIAXone SOD 1 GM VIAL (J0696) IM (23:15)
== END 2018-05-28 23:37 | disposition home or self-care (01) ==
LOC: M ED 19:41
DX: D72.829 Elevated white blood cell count, unspecified (principal); T80.212A Local infection due to central venous catheter, initial encounter; Y92.9 Unspecified place or not applicable; Y93.9 Activity, unspecified; G43.909 Migraine, unspecified, not intractable, without status migrainosus; Z79.899 Other long term (current) drug therapy; Z88.5 Allergy status to narcotic agent; Z88.6 Allergy status to analgesic agent; Z91.89 Other specified personal risk factors, not elsewhere classified; Z91.041 Radiographic dye allergy status
CPT/HCPCS: J0696

== ENCOUNTER 2018-05-29 20:57 | Emergency (ER) | payer MEDICARE, OTHER ==
[2018-05-29 22:14] LABS: HEMATOCRIT 36.6 % (36.0-47.0); HEMOGLOBIN 12.2 g/dl (12.0-15.5); MEAN CORPUSCULAR HEMOGLOBIN 30.7 pg (27.0-33.0); MEAN CORPUSCULAR HGB CONC 33.3 g/dl (32.0-36.5); PLATELET COUNT, AUTOMATED 337 10^3/uL (150-450); RED BLOOD COUNT 3.98 10^6/uL (4.00-5.40); RED CELL DISTRIBUTION WIDTH 13.2 % (11.5-14.5); WHITE BLOOD COUNT 13.5 10^3/uL (4.0-10.0)
[2018-05-29 22:22] LABS: ADD MANUAL DIFFER YES; DIFF SLIDE NUMBER 377; POSITIVE DIFF POS FLAG; POSITIVE MORPH POS FLAG
[2018-05-29 22:39] LABS: BANDS 1 % (< 11); LYMPHOCYTES 37 % (16-52); MONOCYTES 3 % (0-8); NEUTROPHILS 59 % (35-75)
[2018-05-29 22:40] LABS: PLATELET ESTIMATE NORMAL (NORMAL)
[2018-05-29 22:42] LABS: ANION GAP 6 MEQ/L (8-16); BLOOD UREA NITROGEN 14 MG/DL (7-18); C REACTIVE PROTEIN QUANTITATIV < 0.30 MG/DL (0.00-0.30); CALCIUM LEVEL 8.6 MG/DL (8.5-10.1); CARBON DIOXIDE LEVEL 26 MEQ/L (21-32); CHLORIDE LEVEL 108 MEQ/L (98-107); CREATININE FOR GFR 0.61 MG/DL (0.55-1.30); GLOMERULAR FILTRATION RATE > 60.0 (>60); GLUCOSE, FASTING 122 MG/DL (70-100); POTASSIUM SERUM 3.5 MEQ/L (3.5-5.1); SODIUM LEVEL 140 MEQ/L (136-145)
[2018-05-29] MEDS: KETOROLAC 30 MG/ML VIAL (J1885) IV (23:45)
== END 2018-05-30 00:11 | disposition home or self-care (01) ==
LOC: M ED 05-30 00:11
DX: J06.9 Acute upper respiratory infection, unspecified (principal); B34.8 Other viral infections of unspecified site; T82.598A Other mechanical complication of other cardiac and vascular devices and implants, initial encounter; X58.XXXA Exposure to other specified factors, initial encounter; G43.909 Migraine, unspecified, not intractable, without status migrainosus; M48.00 Spinal stenosis, site unspecified; Z87.19 Personal history of other diseases of the digestive system; Z79.899 Other long term (current) drug therapy; Z88.1 Allergy status to other antibiotic agents; Z88.5 Allergy status to narcotic agent; Z88.6 Allergy status to analgesic agent; Z91.040 Latex allergy status; Z91.041 Radiographic dye allergy status
CPT/HCPCS: J1885

== ENCOUNTER 2018-06-03 07:36 | Outpatient (CLI) | payer MEDICARE, OTHER ==
[2018-06-03] MEDS: NS 1,000 ML IV (07:52)
[2018-06-03 08:21] LABS: HEMATOCRIT 42.6 % (36.0-47.0); HEMOGLOBIN 14.1 g/dl (12.0-15.5); MEAN CORPUSCULAR HEMOGLOBIN 30.7 pg (27.0-33.0); MEAN CORPUSCULAR HGB CONC 33.1 g/dl (32.0-36.5); MEAN CORPUSCULAR VOLUME 92.8 fl (80.0-96.0); PLATELET COUNT, AUTOMATED 417 10^3/uL (150-450); RED BLOOD COUNT 4.59 10^6/uL (4.00-5.40); RED CELL DISTRIBUTION WIDTH 13.2 % (11.5-14.5); WHITE BLOOD COUNT 14.9 10^3/uL (4.0-10.0)
[2018-06-03 08:24] LABS: ADD MANUAL DIFFER YES; DIFF SLIDE NUMBER 105; POSITIVE DIFF POS FLAG
[2018-06-03 08:58] LABS: ATYPICAL LYMPH 6 % (0-5); BASOPHILS 1 % (0-4); LYMPHOCYTES 21 % (16-52); MONOCYTES 5 % (0-8); NEUTROPHILS 67 % (35-75); PLATELET ESTIMATE INCREASED (NORMAL)
[2018-06-03] MEDS ORDERED: SODIUM CHLORIDE 0.9% INJ 10 ML SYR IV (09:00)
[2018-06-03 09:15] LABS: ALBUMIN 4.3 GM/DL (3.2-5.2); ALKALINE PHOSPHATASE 111 U/L (45-117); ALT/SGPT 74 U/L (12-78); ANION GAP 11 MEQ/L (8-16); AST/SGOT 45 U/L (7-37); BILIRUBIN,TOTAL 0.2 MG/DL (0.2-1.0); BLOOD UREA NITROGEN 15 MG/DL (7-18); C REACTIVE PROTEIN QUANTITATIV < 0.30 MG/DL (0.00-0.30); CALCIUM LEVEL 9.4 MG/DL (8.5-10.1); CARBON DIOXIDE LEVEL 23 MEQ/L (21-32); CHLORIDE LEVEL 107 MEQ/L (98-107); CHOLESTEROL LEVEL 318 MG/DL (<200); CHOLESTEROL RISK RATIO 7.756 (<5); CREATININE FOR GFR 0.76 MG/DL (0.55-1.30); GLOMERULAR FILTRATION RATE > 60.0 (>60); GLUCOSE, FASTING 111 MG/DL (70-100); HDL CHOLESTEROL 41 MG/DL (>40); LIPASE 131 U/L (73-393); NON-HDL-C 277 MG/DL; POTASSIUM SERUM 4.2 MEQ/L (3.5-5.1); SODIUM LEVEL 141 MEQ/L (136-145); TOTAL PROTEIN 8.2 GM/DL (6.4-8.2); TRIGLYCERIDES LEVEL 906 MG/DL (<150)
[2018-06-03 10:51] LABS: ERYTHROCYTE SEDIMENTATION RATE 23 mm/hr (0-20)
== END 2018-06-03 10:30 | disposition home or self-care (01) ==
LOC: M INFU 07:36
DX: K51.20 Ulcerative (chronic) proctitis without complications (principal); R19.7 Diarrhea, unspecified; K62.89 Other specified diseases of anus and rectum; K21.9 Gastro-esophageal reflux disease without esophagitis; K86.1 Other chronic pancreatitis; Z91.041 Radiographic dye allergy status; Z91.040 Latex allergy status; Z88.5 Allergy status to narcotic agent
CPT/HCPCS: 83690

== ENCOUNTER 2018-06-10 13:37 | Outpatient (CLI) | payer MEDICARE, OTHER ==
[~2018-06-10 13:37] MED LIST changes: -/ONDA4TA OR; -/ONDA4TA PO; -/PANT40TA PO; -ACET50TA PO; -ACETAMINOPHEN OR; -ATOR1TAB21 PO; -BUSP10TA PO; -CIMZKIT SC; -CIPR500T19; -CLON0.5T PO; -COLE1TAB PO; -CREO6000 PO; -FISH1200 PO; -FLAG500T; -FLON0.054; -GABA-282 PO; -GABA-283 PO; -GEMF600T PO; -HYOSCYAMINE OR; -IBUP100SUS FT; -IBUP80TA PO; -LOPI600T PO; -MAGN500C PO; -MIRT15TA3 PO; -MS C200T PO; -NORCOTAB PO; -OMAC1CA PO; -OMEP40CA2 PO; -OXYC-403 PO; -OXYC10TA12 PO; -OXYCODONE OR; -PANT20TA PO; -PAXI40TA PO; -PERC10TA26 PO; -PERC7.5T12 PO; -PERCOCET PO; -PRAZ2CAP PO; -PRIS50TA PO; -PROZ10CA7 PO; -PROZ40CA PO; -RANI150C PO; -REGL10TA6 PO; -SIMV20TA2; -SODI1SOL8 PO; +SODIUM CHLORIDE 0.9% INJ 10 ML SYR IV; -SUDA30TA PO; -TRAZ1TAB14 PO; -TRAZ50TA PO; -TRAZ50TA2 PO; -TRAZO50TA PO; -TYLE325T5 PO; -TYLENOL #3 OR; -VITA200016 PO; -WELL75TA PO; -ZOFR20TA PO; -ZOFR8TAB PO; -celexa; -clonazepam PO
[2018-06-10] MEDS: NS 1,000 ML IV (13:45)
[2018-06-10 14:35] LABS: HEMATOCRIT 35.4 % (36.0-47.0); HEMOGLOBIN 11.7 g/dl (12.0-15.5); MEAN CORPUSCULAR HEMOGLOBIN 30.7 pg (27.0-33.0); MEAN CORPUSCULAR HGB CONC 33.1 g/dl (32.0-36.5); MEAN CORPUSCULAR VOLUME 92.9 fl (80.0-96.0); PLATELET COUNT, AUTOMATED 307 10^3/uL (150-450); RED BLOOD COUNT 3.81 10^6/uL (4.00-5.40); RED CELL DISTRIBUTION WIDTH 12.9 % (11.5-14.5); WHITE BLOOD COUNT 16.4 10^3/uL (4.0-10.0)
[2018-06-10 14:38] LABS: ADD MANUAL DIFFER YES; DIFF SLIDE NUMBER 301; POSITIVE DIFF POS FLAG
[2018-06-10 15:03] LABS: ERYTHROCYTE SEDIMENTATION RATE 19 mm/hr (0-20)
[2018-06-10 15:09] LABS: ATYPICAL LYMPH 18 % (0-5); BASOPHILS 1 % (0-4); EOSINOPHILS 2 % (0-5); LYMPHOCYTES 11 % (16-52); MONOCYTES 4 % (0-8); NEUTROPHILS 64 % (35-75); PLATELET ESTIMATE NORMAL (NORMAL)
[2018-06-10 15:32] LABS: ALBUMIN 3.8 GM/DL (3.2-5.2); ALBUMIN/GLOBULIN RATIO 1.19 (1.00-1.93); ALKALINE PHOSPHATASE 101 U/L (45-117); ALT/SGPT 22 U/L (12-78); ANION GAP 9 MEQ/L (8-16); AST/SGOT 9 U/L (7-37); BILIRUBIN,TOTAL 0.3 MG/DL (0.2-1.0); BLOOD UREA NITROGEN 10 MG/DL (7-18); C REACTIVE PROTEIN QUANTITATIV < 0.30 MG/DL (0.00-0.30); CALCIUM LEVEL 8.9 MG/DL (8.5-10.1); CARBON DIOXIDE LEVEL 25 MEQ/L (21-32); CHLORIDE LEVEL 105 MEQ/L (98-107); CHOLESTEROL LEVEL 234 MG/DL (<200); CREATININE FOR GFR 0.65 MG/DL (0.55-1.30); GLOMERULAR FILTRATION RATE > 60.0 (>60); GLUCOSE, FASTING 88 MG/DL (70-100); HDL CHOLESTEROL 40 MG/DL (>40); LDL CHOLESTEROL 134 MG/DL (<100); LIPASE 176 U/L (73-393); NON-HDL-C 194 MG/DL; POTASSIUM SERUM 3.5 MEQ/L (3.5-5.1); SODIUM LEVEL 139 MEQ/L (136-145); TRIGLYCERIDES LEVEL 302 MG/DL (<150)
== END 2018-06-10 16:10 | disposition home or self-care (01) ==
LOC: M INFU 13:37
DX: R19.7 Diarrhea, unspecified (principal); K62.89 Other specified diseases of anus and rectum; K21.9 Gastro-esophageal reflux disease without esophagitis; K86.1 Other chronic pancreatitis; F32.9 Major depressive disorder, single episode, unspecified; F43.10 Post-traumatic stress disorder, unspecified; G43.909 Migraine, unspecified, not intractable, without status migrainosus; Z79.899 Other long term (current) drug therapy; Z91.040 Latex allergy status; Z91.041 Radiographic dye allergy status; Z88.8 Allergy status to other drugs, medicaments and biological substances; Z90.49 Acquired absence of other specified parts of digestive tract; Z87.442 Personal history of urinary calculi; Z87.19 Personal history of other diseases of the digestive system
CPT/HCPCS: 83690

== ENCOUNTER → 2018-06-12 | Outpatient (CLI) | payer MEDICARE, OTHER ==
[~2018-06-12] MED LIST changes: +PROHANCE 279.3MG/ML 15ML VIAL (A9576) As Ordered; -SODIUM CHLORIDE 0.9% INJ 10 ML SYR IV
== END | disposition home or self-care (01) ==
LOC: M IRPRO 09:45
DX: T85.848A Pain due to other internal prosthetic devices, implants and grafts, initial encounter (principal)
CPT/HCPCS: 36598

== ENCOUNTER 2018-06-17 12:59 | Outpatient (CLI) | payer MEDICARE, OTHER ==
[~2018-06-17 12:59] MED LIST changes: -PROHANCE 279.3MG/ML 15ML VIAL (A9576) As Ordered; +SODIUM CHLORIDE 0.9% INJ 10 ML SYR IV
[2018-06-17] MEDS ORDERED: NS 1,000 ML IV (13:15)
[2018-06-17 13:40] LABS: HEMATOCRIT 35.9 % (36.0-47.0); HEMOGLOBIN 11.7 g/dl (12.0-15.5); MEAN CORPUSCULAR HEMOGLOBIN 30.8 pg (27.0-33.0); MEAN CORPUSCULAR HGB CONC 32.6 g/dl (32.0-36.5); MEAN CORPUSCULAR VOLUME 94.5 fl (80.0-96.0); PLATELET COUNT, AUTOMATED 279 10^3/uL (150-450); RED CELL DISTRIBUTION WIDTH 13.3 % (11.5-14.5)
[2018-06-17 13:46] LABS: WHITE BLOOD COUNT 14.8 10^3/uL (4.0-10.0)
[2018-06-17 13:47] LABS: ADD MANUAL DIFFER YES; DIFF SLIDE NUMBER 259; POSITIVE DIFF POS FLAG
[2018-06-17 14:07] LABS: ALBUMIN/GLOBULIN RATIO 1.33 (1.00-1.93); ALKALINE PHOSPHATASE 85 U/L (45-117); ALT/SGPT 21 U/L (12-78); ANION GAP 4 MEQ/L (8-16); AST/SGOT 11 U/L (7-37); BILIRUBIN,TOTAL 0.2 MG/DL (0.2-1.0); BLOOD UREA NITROGEN 12 MG/DL (7-18); C REACTIVE PROTEIN QUANTITATIV < 0.30 MG/DL (0.00-0.30); CARBON DIOXIDE LEVEL 29 MEQ/L (21-32); CHLORIDE LEVEL 105 MEQ/L (98-107); CHOLESTEROL LEVEL 246 MG/DL (<200); CHOLESTEROL RISK RATIO 5.466 (<5); CREATININE FOR GFR 0.71 MG/DL (0.55-1.30); GLOMERULAR FILTRATION RATE > 60.0 (>60); GLUCOSE, FASTING 97 MG/DL (70-100); HDL CHOLESTEROL 45 MG/DL (>40); LIPASE 1186 U/L (73-393); NON-HDL-C 201 MG/DL; SODIUM LEVEL 138 MEQ/L (136-145); TRIGLYCERIDES LEVEL 561 MG/DL (<150)
[2018-06-17 14:29] LABS: ATYPICAL LYMPH 2 % (0-5); BANDS 1 % (< 11); EOSINOPHILS 1 % (0-5); LYMPHOCYTES 28 % (16-52); MONOCYTES 6 % (0-8); NEUTROPHILS 62 % (35-75); PLATELET ESTIMATE NORMAL (NORMAL)
[2018-06-17 14:30] LABS: ANISOCYTOSIS 1+
[2018-06-17 15:03] LABS: ERYTHROCYTE SEDIMENTATION RATE 13 mm/hr (0-20)
== END 2018-06-17 15:15 | disposition home or self-care (01) ==
LOC: M INFU 12:59
DX: R19.7 Diarrhea, unspecified (principal); K62.89 Other specified diseases of anus and rectum; K21.9 Gastro-esophageal reflux disease without esophagitis; K86.1 Other chronic pancreatitis
CPT/HCPCS: 36591

== ENCOUNTER 2018-06-24 07:39 | Outpatient (CLI) | payer MEDICARE, OTHER ==
[2018-06-24] MEDS: NS 1,000 ML IV (08:00)
[2018-06-24 08:11] LABS: BASO # 0.1 10^3/uL (0.0-0.2); BASO % 0.4 % (0.0-1.0); EOS # 0.2 10^3/uL (0.0-0.50); EOS % 0.8 % (0.0-3.0); HEMATOCRIT 40.7 % (36.0-47.0); HEMOGLOBIN 13.4 g/dl (12.0-15.5); IMMATURE GRANULOCYTE % 0.4 % (0-3.0); LYMPH # 3.2 10^3/uL (1.5-4.5); LYMPH % 16.6 % (24.0-44.0); MEAN CORPUSCULAR HEMOGLOBIN 30.2 pg (27.0-33.0); MEAN CORPUSCULAR HGB CONC 32.9 g/dl (32.0-36.5); MEAN CORPUSCULAR VOLUME 91.9 fl (80.0-96.0); MONO # 0.9 10^3/uL (0.0-0.8); MONO % 4.6 % (0.0-5.0); NEUTROPHILS # 14.7 10^3/uL (1.8-7.7); NEUTROPHILS % 77.2 % (36.0-66.0); PLATELET COUNT, AUTOMATED 339 10^3/uL (150-450); RED BLOOD COUNT 4.43 10^6/uL (4.00-5.40); RED CELL DISTRIBUTION WIDTH 13.5 % (11.5-14.5)
[2018-06-24 08:45] LABS: ALBUMIN 4.3 GM/DL (3.2-5.2); ALBUMIN/GLOBULIN RATIO 1.16 (1.00-1.93); ALKALINE PHOSPHATASE 101 U/L (45-117); ALT/SGPT 22 U/L (12-78); ANION GAP 8 MEQ/L (8-16); AST/SGOT 17 U/L (7-37); BILIRUBIN,TOTAL 0.7 MG/DL (0.2-1.0); BLOOD UREA NITROGEN 12 MG/DL (7-18); C REACTIVE PROTEIN QUANTITATIV 0.44 MG/DL (0.00-0.30); CALCIUM LEVEL 9.4 MG/DL (8.5-10.1); CARBON DIOXIDE LEVEL 22 MEQ/L (21-32); CHLORIDE LEVEL 106 MEQ/L (98-107); CHOLESTEROL LEVEL 282 MG/DL (<200); CREATININE FOR GFR 0.71 MG/DL (0.55-1.30); GLOMERULAR FILTRATION RATE > 60.0 (>60); GLUCOSE, FASTING 111 MG/DL (70-100); HDL CHOLESTEROL 46 MG/DL (>40); LIPASE 125 U/L (73-393); NON-HDL-C 236 MG/DL; SODIUM LEVEL 136 MEQ/L (136-145); TRIGLYCERIDES LEVEL 417 MG/DL (<150)
[2018-06-24 08:54] LABS: ERYTHROCYTE SEDIMENTATION RATE 24 mm/hr (0-20)
[2018-06-24] MEDS ORDERED: SODIUM CHLORIDE 0.9% INJ 10 ML SYR IV (09:00)
== END 2018-06-24 09:45 | disposition home or self-care (01) ==
LOC: M INFU 07:39
DX: R19.7 Diarrhea, unspecified (principal); K62.89 Other specified diseases of anus and rectum; K21.9 Gastro-esophageal reflux disease without esophagitis; K86.1 Other chronic pancreatitis
CPT/HCPCS: 36591

== ENCOUNTER 2018-06-25 17:07 | Inpatient (IN) | payer MEDICARE, OTHER ==
[2018-06-25] MEDS: HYDROMORPHONE HCL 0.5 MG/ 0.5 ML SYRINGE (J1170 PER 1) IV ×2 (18:02→21:50)
[2018-06-25] MEDS: KETOROLAC 30 MG/ML VIAL (J1885) IV (18:02)
[2018-06-25] MEDS: NS 1,000 ML IV ×2 (18:02)
[2018-06-25] MEDS: METOCLOPRAMIDE INJ 10MG/2ML VIAL (J2765) IV (18:02)
[2018-06-25] MEDS: READI-CAT 2 PO ×2 (18:10→18:40)
[2018-06-25 18:27] LABS: HEMOGLOBIN 13.4 g/dl (12.0-15.5); MEAN CORPUSCULAR HEMOGLOBIN 30.9 pg (27.0-33.0); MEAN CORPUSCULAR HGB CONC 32.7 g/dl (32.0-36.5); MEAN CORPUSCULAR VOLUME 94.5 fl (80.0-96.0); PLATELET COUNT, AUTOMATED 331 10^3/uL (150-450); RED BLOOD COUNT 4.34 10^6/uL (4.00-5.40); RED CELL DISTRIBUTION WIDTH 13.4 % (11.5-14.5)
[2018-06-25 18:32] LABS: APPEARANCE, URINE HAZY (CLEAR); BACTERIA, URINE AUTO NEGATIVE (NEGATIVE); BILIRUBIN, URINE AUTO NEGATIVE (NEGATIVE); BLOOD, URINE BLOOD NEGATIVE (NEGATIVE); CALCIUM OXALATE CRYSTALS SMALL; COLOR, URINE YELLOW (YELLOW); GLUCOSE, URINE (UA) AUTO NEGATIVE (NEGATIVE); KETONE, URINE AUTO NEGATIVE (NEGATIVE); LEUKOCYTE ESTERASE, URINE AUTO NEGATIVE (NEGATIVE); MUCUS, URINE SMALL (NEGATIVE); NITRITE, URINE AUTO NEGATIVE (NEGATIVE); PROTEIN, URINE AUTO NEGATIVE (NEGATIVE); RBC, URINE AUTO 2 /HPF (0-3); SPECIFIC GRAVITY URINE AUTO 1.026 (1.002-1.035); SQUAMOUS EPITHELIAL CELL UR AU 2 /HPF (0-6); WBC, URINE AUTO 1 /HPF (0-3)
[2018-06-25 18:34] LABS: POSITIVE DIFF POS FLAG; POSITIVE MORPH POS FLAG; WHITE BLOOD COUNT 14.1 10^3/uL (4.0-10.0)
[2018-06-25 18:35] LABS: ADD MANUAL DIFFER YES; DIFF SLIDE NUMBER 388
[2018-06-25 18:59] LABS: LACTIC ACID SEPSIS PROTOCOL 0.9 MMOL/L (0.4-2.0)
[2018-06-25 19:05] LABS: ALBUMIN 4.3 GM/DL (3.2-5.2); ALBUMIN/GLOBULIN RATIO 1.16 (1.00-1.93); ALKALINE PHOSPHATASE 95 U/L (45-117); ALT/SGPT 22 U/L (12-78); AMYLASE 68 U/L (25-115); ANION GAP 9 MEQ/L (8-16); AST/SGOT 12 U/L (7-37); BILIRUBIN,TOTAL 0.2 MG/DL (0.2-1.0); BLOOD UREA NITROGEN 10 MG/DL (7-18); C REACTIVE PROTEIN QUANTITATIV < 0.30 MG/DL (0.00-0.30); CALCIUM LEVEL 9.1 MG/DL (8.5-10.1); CARBON DIOXIDE LEVEL 24 MEQ/L (21-32); CHLORIDE LEVEL 103 MEQ/L (98-107); CREATININE FOR GFR 0.62 MG/DL (0.55-1.30); GLOMERULAR FILTRATION RATE > 60.0 (>60); GLUCOSE, FASTING 87 MG/DL (70-100); HCG, SERUM QUANTITATIVE < 1.0 MIU/ML; LIPASE 529 U/L (73-393); POTASSIUM SERUM 3.8 MEQ/L (3.5-5.1); SODIUM LEVEL 136 MEQ/L (136-145)
[2018-06-25 19:06] LABS: ATYPICAL LYMPH 11 % (0-5); EOSINOPHILS 2 % (0-5); LYMPHOCYTES 29 % (16-52); MONOCYTES 3 % (0-8); NEUTROPHILS 55 % (35-75); PLATELET ESTIMATE NORMAL (NORMAL)
[2018-06-25] MEDS: TRIMETHOBENZAMIDE HCL INJ 200 MG/2 ML VIAL (J3250) IM ×2 (21:51→21:56)
[2018-06-25] MEDS ORDERED: ACETAMINOPHEN TAB 650MG DOSE (2X325MG) PO (23:30)
[2018-06-25] MEDS ORDERED: ONDANSETRON 4MG/2ML VIAL (J2405) IV (23:30)
[2018-06-25] MEDS ORDERED: MORPHINE 4 MG/ML 1ML VIAL/SYRINGE (J2270) IV (23:30)
[2018-06-26] MEDS: NS 1,000 ML IV ×3 (01:20→10:39)
[2018-06-26] MEDS ORDERED: PILL CRUSHER/CUTTER 1 EACH XX (02:30)
[2018-06-26] MEDS: busPIRone 5 MG TAB PO ×3 (02:43→20:34)
[2018-06-26] MEDS: traZODone 50 MG TAB PO ×2 (02:43→20:30)
[2018-06-26] MEDS: PERCOCET 5MG/325MG TAB PO ×4 (03:25→23:39)
[2018-06-26] MEDS: HEPARIN SOD (PORCINE) 5000 UNITS/ML VIAL SC ×3 (05:15→20:39)
[2018-06-26 06:37] LABS: HEMATOCRIT 33.5 % (36.0-47.0); MEAN CORPUSCULAR HEMOGLOBIN 30.4 pg (27.0-33.0); MEAN CORPUSCULAR HGB CONC 32.2 g/dl (32.0-36.5); MEAN CORPUSCULAR VOLUME 94.4 fl (80.0-96.0); PLATELET COUNT, AUTOMATED 261 10^3/uL (150-450); RED BLOOD COUNT 3.55 10^6/uL (4.00-5.40); RED CELL DISTRIBUTION WIDTH 13.4 % (11.5-14.5); WHITE BLOOD COUNT 11.7 10^3/uL (4.0-10.0)
[2018-06-26 06:42] LABS: HEMOGLOBIN 10.8 g/dl (12.0-15.5)
[2018-06-26 07:15] LABS: ALBUMIN/GLOBULIN RATIO 0.94 (1.00-1.93); ALKALINE PHOSPHATASE 75 U/L (45-117); ALT/SGPT 18 U/L (12-78); ANION GAP 8 MEQ/L (8-16); AST/SGOT 13 U/L (7-37); BILIRUBIN,TOTAL 0.2 MG/DL (0.2-1.0); BLOOD UREA NITROGEN 9 MG/DL (7-18); CARBON DIOXIDE LEVEL 18 MEQ/L (21-32); CHLORIDE LEVEL 113 MEQ/L (98-107); CREATININE FOR GFR 0.57 MG/DL (0.55-1.30); GLOMERULAR FILTRATION RATE > 60.0 (>60); GLUCOSE, FASTING 93 MG/DL (70-100); LIPASE 111 U/L (73-393); MAGNESIUM LEVEL 1.8 MG/DL (1.8-2.4); SODIUM LEVEL 139 MEQ/L (136-145); TOTAL PROTEIN 6.2 GM/DL (6.4-8.2)
[2018-06-26] MEDS: DESVENLAFAXINE ER 50 MG TABLET (PRISTIQ) PO (08:24)
[2018-06-26] MEDS: ATORVASTATIN 20 MG TAB PO (08:24)
[2018-06-26] MEDS: GEMFIBROZIL 600 MG TAB PO (08:24)
[2018-06-26] MEDS: oxyCODONE 5MG TAB PO ×3 (08:26→20:34)
[2018-06-26 16:44] LABS: CHOLESTEROL LEVEL 208 MG/DL (<200); CHOLESTEROL RISK RATIO 7.703 (<5); HDL CHOLESTEROL 27 MG/DL (>40); NON-HDL-C 181 MG/DL; TRIGLYCERIDES LEVEL 550 MG/DL (<150)
[2018-06-26] MEDS: clonazePAM 1 MG TAB PO (19:43)
[2018-06-26] MEDS: PANTOPRAZOLE 40MG TAB (PROTONIX) PO (20:33)
[2018-06-27] MEDS: HEPARIN SOD (PORCINE) 5000 UNITS/ML VIAL SC (05:12)
[2018-06-27 09:09] LABS: HEMATOCRIT 41.6 % (36.0-47.0); MEAN CORPUSCULAR HEMOGLOBIN 30.7 pg (27.0-33.0); MEAN CORPUSCULAR HGB CONC 33.2 g/dl (32.0-36.5); MEAN CORPUSCULAR VOLUME 92.4 fl (80.0-96.0); PLATELET COUNT, AUTOMATED 333 10^3/uL (150-450); RED CELL DISTRIBUTION WIDTH 13.1 % (11.5-14.5); WHITE BLOOD COUNT 13.3 10^3/uL (4.0-10.0)
[2018-06-27 09:16] LABS: HEMOGLOBIN 13.8 g/dl (12.0-15.5)
[2018-06-27] MEDS: busPIRone 5 MG TAB PO (09:36)
[2018-06-27] MEDS: ATORVASTATIN 20 MG TAB PO (09:36)
[2018-06-27] MEDS: GEMFIBROZIL 600 MG TAB PO (09:36)
[2018-06-27] MEDS: DESVENLAFAXINE ER 50 MG TABLET (PRISTIQ) PO (09:36)
[2018-06-27 09:44] LABS: ALBUMIN 4.2 GM/DL (3.2-5.2); ALBUMIN/GLOBULIN RATIO 1.27 (1.00-1.93); ALKALINE PHOSPHATASE 94 U/L (45-117); ALT/SGPT 22 U/L (12-78); ANION GAP 5 MEQ/L (8-16); AST/SGOT 10 U/L (7-37); BILIRUBIN,TOTAL 0.5 MG/DL (0.2-1.0); BLOOD UREA NITROGEN 7 MG/DL (7-18); CALCIUM LEVEL 9.9 MG/DL (8.5-10.1); CARBON DIOXIDE LEVEL 26 MEQ/L (21-32); CHLORIDE LEVEL 108 MEQ/L (98-107); CREATININE FOR GFR 0.69 MG/DL (0.55-1.30); GLOMERULAR FILTRATION RATE > 60.0 (>60); GLUCOSE, FASTING 109 MG/DL (70-100); LIPASE 88 U/L (73-393); POTASSIUM SERUM 4.5 MEQ/L (3.5-5.1); SODIUM LEVEL 139 MEQ/L (136-145); TOTAL PROTEIN 7.5 GM/DL (6.4-8.2)
[2018-06-27] MEDS: PERCOCET 5MG/325MG TAB PO (10:02)
[2018-06-27] MEDS: oxyCODONE 5MG TAB PO (12:03)
== END 2018-06-27 12:06 | disposition home or self-care (01) | DRG 439 ==
LOC: M MSPAV 06-26 01:47 → M ED 17:07 → M ED INP 23:18
DX: K85.90 Acute pancreatitis without necrosis or infection, unspecified (principal); K51.90 Ulcerative colitis, unspecified, without complications; E78.5 Hyperlipidemia, unspecified; F32.9 Major depressive disorder, single episode, unspecified; F41.9 Anxiety disorder, unspecified; Z90.49 Acquired absence of other specified parts of digestive tract; Z87.442 Personal history of urinary calculi; Z95.828 Presence of other vascular implants and grafts; Z79.891 Long term (current) use of opiate analgesic; Z79.899 Other long term (current) drug therapy; Z91.041 Radiographic dye allergy status; Z91.040 Latex allergy status; Z88.5 Allergy status to narcotic agent; Z88.8 Allergy status to other drugs, medicaments and biological substances; Z87.891 Personal history of nicotine dependence

== ENCOUNTER 2018-07-01 14:27 | Outpatient (CLI) | payer MEDICARE, OTHER ==
[2018-07-01] MEDS: NS 1,000 ML IV (14:43)
[2018-07-01 15:00] LABS: BASO # 0.1 10^3/uL (0.0-0.2); BASO % 0.7 % (0.0-1.0); EOS % 0.3 % (0.0-3.0); HEMATOCRIT 40.3 % (36.0-47.0); HEMOGLOBIN 13.6 g/dl (12.0-15.5); IMMATURE GRANULOCYTE % 0.3 % (0-3.0); LYMPH # 3.5 10^3/uL (1.5-4.5); LYMPH % 30.7 % (24.0-44.0); MEAN CORPUSCULAR HEMOGLOBIN 31.2 pg (27.0-33.0); MEAN CORPUSCULAR HGB CONC 33.7 g/dl (32.0-36.5); MEAN CORPUSCULAR VOLUME 92.4 fl (80.0-96.0); MONO # 0.5 10^3/uL (0.0-0.8); MONO % 4.4 % (0.0-5.0); NEUTROPHILS # 7.3 10^3/uL (1.8-7.7); NEUTROPHILS % 63.6 % (36.0-66.0); PLATELET COUNT, AUTOMATED 365 10^3/uL (150-450); RED BLOOD COUNT 4.36 10^6/uL (4.00-5.40); RED CELL DISTRIBUTION WIDTH 12.9 % (11.5-14.5); WHITE BLOOD COUNT 11.4 10^3/uL (4.0-10.0)
[2018-07-01 15:23] LABS: C REACTIVE PROTEIN QUANTITATIV < 0.30 MG/DL (0.00-0.30); CHOLESTEROL LEVEL 253 MG/DL (<200); CHOLESTEROL RISK RATIO 6.487 (<5); HDL CHOLESTEROL 39 MG/DL (>40); LIPASE 95 U/L (73-393); NON-HDL-C 214 MG/DL; TRIGLYCERIDES LEVEL 739 MG/DL (<150)
[2018-07-01 15:31] LABS: ERYTHROCYTE SEDIMENTATION RATE 16 mm/hr (0-20)
== END 2018-07-01 16:40 | disposition home or self-care (01) ==
LOC: M INFU 14:27
DX: K51.20 Ulcerative (chronic) proctitis without complications (principal); R19.7 Diarrhea, unspecified; K62.89 Other specified diseases of anus and rectum; K21.9 Gastro-esophageal reflux disease without esophagitis; K86.1 Other chronic pancreatitis; Z91.040 Latex allergy status; Z91.041 Radiographic dye allergy status; Z88.5 Allergy status to narcotic agent
CPT/HCPCS: 36591

== ENCOUNTER 2018-07-08 13:14 | Outpatient (CLI) | payer MEDICARE, OTHER ==
[2018-07-08] MEDS: NS 1,000 ML IV (14:00)
== END 2018-07-08 15:45 | disposition home or self-care (01) ==
LOC: M INFU 13:14
DX: E86.0 Dehydration (principal); Z91.041 Radiographic dye allergy status; Z88.5 Allergy status to narcotic agent
CPT/HCPCS: 96360

== ENCOUNTER 2018-07-15 07:24 | Outpatient (CLI) | payer MEDICARE, OTHER ==
[2018-07-15] MEDS: NS 1,000 ML IV (07:42)
[2018-07-15] MEDS: SODIUM CHLORIDE 0.9% INJ 10 ML SYR IV (09:15)
== END 2018-07-15 09:30 | disposition home or self-care (01) ==
LOC: M INFU 07:24
DX: E86.0 Dehydration (principal); Z45.2 Encounter for adjustment and management of vascular access device
CPT/HCPCS: 96360

== ENCOUNTER 2018-07-23 14:47 | Outpatient (CLI) | payer MEDICARE, OTHER ==
[2018-07-23] MEDS: NS 1,000 ML IV (15:26)
[2018-07-23 15:32] LABS: HEMATOCRIT 41.2 % (36.0-47.0); HEMOGLOBIN 13.6 g/dl (12.0-15.5); MEAN CORPUSCULAR HEMOGLOBIN 30.6 pg (27.0-33.0); MEAN CORPUSCULAR VOLUME 92.8 fl (80.0-96.0); PLATELET COUNT, AUTOMATED 307 10^3/uL (150-450); RED BLOOD COUNT 4.44 10^6/uL (4.00-5.40); RED CELL DISTRIBUTION WIDTH 13.1 % (11.5-14.5); WHITE BLOOD COUNT 14.6 10^3/uL (4.0-10.0)
[2018-07-23 15:34] LABS: ADD MANUAL DIFFER YES; DIFF SLIDE NUMBER 351; POSITIVE DIFF POS FLAG; POSITIVE MORPH POS FLAG
[2018-07-23 15:53] LABS: EOSINOPHILS 2 % (0-5); LYMPHOCYTES 41 % (16-52); MONOCYTES 2 % (0-8); NEUTROPHILS 55 % (35-75)
[2018-07-23 15:54] LABS: PLATELET ESTIMATE NORMAL (NORMAL)
[2018-07-23 15:57] LABS: ERYTHROCYTE SEDIMENTATION RATE 25 mm/hr (0-20)
[2018-07-23 16:07] LABS: ALKALINE PHOSPHATASE 100 U/L (45-117); ALT/SGPT 16 U/L (12-78); ANION GAP 6 MEQ/L (8-16); AST/SGOT 7 U/L (7-37); BILIRUBIN,TOTAL 0.3 MG/DL (0.2-1.0); BLOOD UREA NITROGEN 16 MG/DL (7-18); CALCIUM LEVEL 8.9 MG/DL (8.5-10.1); CARBON DIOXIDE LEVEL 25 MEQ/L (21-32); CHLORIDE LEVEL 106 MEQ/L (98-107); CHOLESTEROL LEVEL 239 MG/DL (<200); CHOLESTEROL RISK RATIO 4.877 (<5); CREATININE FOR GFR 0.68 MG/DL (0.55-1.30); GLOMERULAR FILTRATION RATE > 60.0 (>60); GLUCOSE, FASTING 101 MG/DL (70-100); HDL CHOLESTEROL 49 MG/DL (>40); LDL CHOLESTEROL 138 MG/DL (<100); NON-HDL-C 190 MG/DL; POTASSIUM SERUM 3.8 MEQ/L (3.5-5.1); SODIUM LEVEL 137 MEQ/L (136-145); TOTAL PROTEIN 8.4 GM/DL (6.4-8.2); TRIGLYCERIDES LEVEL 261 MG/DL (<150)
[2018-07-23 16:08] LABS: ALBUMIN 4.4 GM/DL (3.2-5.2); C REACTIVE PROTEIN QUANTITATIV 0.47 MG/DL (0.00-0.30); LIPASE 575 U/L (73-393)
[2018-07-23] MEDS: SODIUM CHLORIDE 0.9% INJ 10 ML SYR IV (17:10)
== END 2018-07-23 17:25 | disposition home or self-care (01) ==
LOC: M INFU 14:47
DX: E86.0 Dehydration (principal); K51.20 Ulcerative (chronic) proctitis without complications; E78.1 Pure hyperglyceridemia; K86.1 Other chronic pancreatitis; R10.84 Generalized abdominal pain; Z91.041 Radiographic dye allergy status; Z91.040 Latex allergy status; Z88.5 Allergy status to narcotic agent
CPT/HCPCS: 83690

== ENCOUNTER 2018-07-29 07:38 | Outpatient (CLI) | payer MEDICARE, OTHER ==
[~2018-07-29] VITALS: Ht 162.6 cm; Wt 81.4 kg
[~2018-07-29 07:38] MED LIST changes: +/ONDA4TA OR; +/ONDA4TA PO; +/PANT40TA PO; +ACET-683 PO; +ACET50TA PO; +ACETAMINOPHEN OR; +ATOR1TAB21; +ATOR1TAB21 PO; +BUSP10TA PO; +BUSP15TA47 PO; +CIMZ200K; +CIMZKIT SC; +CIPR500T19; +CLON0.5T PO; +CLON0.5T8 PO; +CLON1TAB8 PO; +COLE1TAB PO; +CREO6000 PO; +FISH1200 PO; +FLAG500T; +FLON0.054; +GABA-843 PO; +GABA-845 PO; +GEMF600T PO; +GEMF600T5 PO; +HYOSCYAMINE OR; +IBUP100SUS FT; +IBUP80TA PO; +LOPI600T PO; +MAGN500C PO; +MIRT15TA3 PO; +MS C200T PO; +NORCOTAB PO; +NS 1,000 ML IV ONE; +OMAC1CA PO; +OMEP40CA2 PO; +OXYC-403 PO; +OXYC10TA12 PO; +OXYCODONE OR; +PANT20TA2 PO; +PAXI40TA PO; +PERC10TA26 PO; +PERC7.5T12 PO; +PERCOCET PO; +PRAZ2CAP PO; +PRIS100T PO; +PRIS50TA PO; +PROZ10CA7 PO; +PROZ40CA PO; +RANI150C PO; +REGL10TA6 PO; +SIMV20TA2; +SODI1SOL8 PO; -SODIUM CHLORIDE 0.9% INJ 10 ML SYR IV; +SUDA30TA PO; +TRAZ1TAB14 PO; +TRAZ50TA PO; +TRAZ50TA2 PO; +TRAZO50TA PO; +TYLE325T5 PO; +TYLENOL #3 OR; +VALT1TAB PO; +VITA200016 PO; +WELL75TA PO; +ZOFR4TAB16 PO; +ZOFR8TAB PO; +celexa; +clonazepam PO
[2018-07-29 07:40] VITALS: BP 100/62
[2018-07-29] MEDS ORDERED: SODIUM CHLORIDE 0.9% INJ 10 ML SYR IV SCH (09:00)
[2018-07-29 09:50] VITALS: BP 100/57
== END 2018-07-29 09:50 | disposition home or self-care (01) ==
LOC: M INFU 07:38
PROVIDERS: ATTEND Internal Medicine
DX: E86.0 Dehydration (principal); R19.7 Diarrhea, unspecified; R10.13 Epigastric pain; K86.1 Other chronic pancreatitis; K21.9 Gastro-esophageal reflux disease without esophagitis; K26.9 Duodenal ulcer, unspecified as acute or chronic, without hemorrhage or perforation; R11.0 Nausea; K51.20 Ulcerative (chronic) proctitis without complications; R63.4 Abnormal weight loss; R13.19 Other dysphagia; Z45.2 Encounter for adjustment and management of vascular access device; Z91.041 Radiographic dye allergy status; Z88.5 Allergy status to narcotic agent; Z88.2 Allergy status to sulfonamides

== ENCOUNTER 2018-08-05 07:40 | Outpatient (CLI) | payer MEDICARE, OTHER ==
[~2018-08-05] VITALS: Ht 162.6 cm; Wt 81.8 kg
[~2018-08-05 07:40] MED LIST changes: +SODIUM CHLORIDE 0.9% INJ 10 ML SYR IV SCH
[2018-08-05 07:45] VITALS: BP 113/68
[2018-08-05 09:40] VITALS: BP 120/81
== END 2018-08-05 09:40 | disposition home or self-care (01) ==
LOC: M INFU 07:40
PROVIDERS: ATTEND Internal Medicine
DX: E86.0 Dehydration (principal); Z91.041 Radiographic dye allergy status; Z91.040 Latex allergy status; Z88.5 Allergy status to narcotic agent

== ENCOUNTER 2018-08-10 18:45 | Emergency (ER) | payer MEDICARE, OTHER ==
[~2018-08-10] VITALS: Ht 162.6 cm; Wt 81.8 kg
[~2018-08-10 18:45] MED LIST changes: -NS 1,000 ML IV ONE; -SODIUM CHLORIDE 0.9% INJ 10 ML SYR IV SCH
[2018-08-10] MEDS ORDERED: PROT1TAB2 PO (18:53)
[2018-08-10] MEDS ORDERED: fentaNYL 100 MCG/2 ML INJECTION (J3010) IV ONE ×2 (19:45→21:15)
[2018-08-10] MEDS ORDERED: NS 1,000 ML IV ONE (19:45)
[2018-08-10 19:56] LABS: HEMATOCRIT 41.2 % (36.0-47.0); HEMOGLOBIN 13.6 g/dl (12.0-15.5); MEAN CORPUSCULAR HEMOGLOBIN 30.8 pg (27.0-33.0); MEAN CORPUSCULAR VOLUME 93.2 fl (80.0-96.0); PLATELET COUNT, AUTOMATED 307 10^3/uL (150-450); RED BLOOD COUNT 4.42 10^6/uL (4.00-5.40)
[2018-08-10 19:59] LABS: WHITE BLOOD COUNT 17.1 10^3/uL (4.0-10.0)
--- NOTE | 2018-08-10 20:12 | REP ---
Clinical: Acute chest pain . Comparison: 06/27/2018 . Technique: PA and lateral. Findings: The mediastinum and cardiac silhouette are normal. Iupkhx-H-[id number] with tip in the SVC remains stable. The The lung lai are clear and without acute consolidation, effusion, or pneumothorax. The skeletal structures are intact and normal. Impression: 1. No acute cardiopulmonary process. Electronically Signed by Walt Harper MD 08/10/2018 08:03 P
[2018-08-10 20:14] LABS: BLOOD UREA NITROGEN 13 MG/DL (7-18); C REACTIVE PROTEIN QUANTITATIV < 0.30 MG/DL (0.00-0.30); CALCIUM LEVEL 8.9 MG/DL (8.5-10.1); CARBON DIOXIDE LEVEL 27 MEQ/L (21-32); CHLORIDE LEVEL 105 MEQ/L (98-107); CREATININE FOR GFR 0.65 MG/DL (0.55-1.30); GLOMERULAR FILTRATION RATE > 60.0 (>60); GLUCOSE, FASTING 95 MG/DL (70-100); POTASSIUM SERUM 3.9 MEQ/L (3.5-5.1); SODIUM LEVEL 139 MEQ/L (136-145)
[2018-08-10 20:21] LABS: ERYTHROCYTE SEDIMENTATION RATE 13 mm/hr (0-20)
[2018-08-10 20:30] LABS: ATYPICAL LYMPH 5 % (0-5); BASOPHILS 1 % (0-4); EOSINOPHILS 1 % (0-5); LYMPHOCYTES 26 % (16-52); MONOCYTES 7 % (0-8); NEUTROPHILS 60 % (35-75); PLATELET ESTIMATE NORMAL (NORMAL)
--- NOTE | 2018-08-10 20:41 | REPVR ---
EXAM: US CHEST EXAM DATE/TIME: 08/10/2018 8:11 PM CLINICAL HISTORY: 38 years old, female; Pain; Other: Swelling and pain at infusaport; Prior surgery; Surgery date: 6+ months; Surgery type: Infusaport placed 3 years ago; Additional info: Infusaport, pain, R/O seroma TECHNIQUE: US CHEST COMPARISON: CR Chest, 2 view PA, Lat 08/10/2018 7:50 PM FINDINGS: Imaging performed over the region of [id number] and pain as directed by the patient did not demonstrate any evidence of a mass or fluid collection (seroma, hematoma, or edema). IMPRESSION: Unremarkable examination. No hematoma or seroma demonstrated. Electronically signed by: Phuc Woodward On 08/10/2018 20:40:50 PM
[2018-08-10] MEDS ORDERED: DILA2TAB6 PO (22:24)
[2018-08-10] MEDS ORDERED: HYDROmorphone 2 MG TAB PO ONE ×2 (22:30→22:45)
[2018-08-10 22:53] VITALS: BP 111/69
== END 2018-08-10 22:56 | disposition home or self-care (01) ==
LOC: M ED 18:45
DX: T82.49XA Other complication of vascular dialysis catheter, initial encounter (principal); R07.89 Other chest pain; Y92.9 Unspecified place or not applicable; Y93.9 Activity, unspecified; E78.5 Hyperlipidemia, unspecified; Z87.442 Personal history of urinary calculi; K51.90 Ulcerative colitis, unspecified, without complications; Z79.899 Other long term (current) drug therapy; Z91.041 Radiographic dye allergy status; Z88.6 Allergy status to analgesic agent; Z88.5 Allergy status to narcotic agent; Z91.040 Latex allergy status; Z91.89 Other specified personal risk factors, not elsewhere classified
CPT/HCPCS: 71046; 76604; 80048; 85025; 85652; 86140; 87040; 96361; 96374; 96376; 99284; J3010

== ENCOUNTER 2018-08-21 07:26 | Outpatient (CLI) | payer MEDICARE, OTHER ==
[~2018-08-21] VITALS: Ht 162.6 cm; Wt 81.8 kg
[~2018-08-21 07:26] MED LIST changes: +DILA2TAB6 PO; +PROT1TAB2 PO
[2018-08-21 07:30] VITALS: BP 123/69
[2018-08-21] MEDS ORDERED: NS 1,000 ML IV SCH (08:00)
[2018-08-21 09:30] VITALS: BP 110/58
== END 2018-08-21 09:30 | disposition home or self-care (01) ==
LOC: M INFU 07:26
PROVIDERS: ATTEND Internal Medicine
DX: E86.0 Dehydration (principal)

== ENCOUNTER 2018-08-26 12:11 | Outpatient (CLI) | payer MEDICARE, OTHER ==
[~2018-08-26] VITALS: Ht 162.6 cm; Wt 81.8 kg
[~2018-08-26 12:11] MED LIST changes: +NS 1,000 ML IV SCH
[2018-08-26 12:15] VITALS: BP 129/80
[2018-08-26 14:30] VITALS: BP 119/70
== END 2018-08-26 14:30 | disposition home or self-care (01) ==
LOC: M INFU 12:11
PROVIDERS: ATTEND Internal Medicine
DX: E86.0 Dehydration (principal); Z91.040 Latex allergy status; Z91.041 Radiographic dye allergy status; Z88.5 Allergy status to narcotic agent

== ENCOUNTER 2018-09-02 07:24 | Outpatient (CLI) | payer MEDICARE, OTHER ==
[~2018-09-02] VITALS: Ht 162.6 cm; Wt 81.8 kg
[~2018-09-02 07:24] MED LIST changes: +NS 1,000 ML IV ONE; -NS 1,000 ML IV SCH
[2018-09-02 07:30] VITALS: BP 109/73
[2018-09-02 09:25] VITALS: BP 114/58
== END 2018-09-02 09:25 | disposition home or self-care (01) ==
LOC: M INFU 07:24
PROVIDERS: ATTEND Internal Medicine
DX: E86.0 Dehydration (principal); Z91.041 Radiographic dye allergy status; Z88.5 Allergy status to narcotic agent; Z91.040 Latex allergy status

== ENCOUNTER 2018-09-09 08:33 | Outpatient (CLI) | payer MEDICARE, OTHER ==
[~2018-09-09] VITALS: Ht 162.6 cm; Wt 81.8 kg
[~2018-09-09 08:33] MED LIST changes: -NS 1,000 ML IV ONE
[2018-09-09 08:44] VITALS: BP 117/69
[2018-09-09] MEDS ORDERED: NS 1,000 ML IV SCH (08:45)
[2018-09-09 10:40] VITALS: BP 88/53
== END 2018-09-09 10:40 | disposition home or self-care (01) ==
LOC: M INFU 08:33
PROVIDERS: ATTEND Internal Medicine
DX: E86.0 Dehydration (principal); Z91.041 Radiographic dye allergy status; Z91.040 Latex allergy status; Z88.5 Allergy status to narcotic agent

== ENCOUNTER 2018-09-16 07:48 | Outpatient (CLI) | payer MEDICARE, OTHER ==
[~2018-09-16] VITALS: Ht 162.6 cm; Wt 81.8 kg
[2018-09-16 07:55] VITALS: BP 118/76
[2018-09-16] MEDS ORDERED: NS 1,000 ML IV SCH (08:00)
[2018-09-16 09:50] VITALS: BP 117/61
== END 2018-09-16 09:50 | disposition home or self-care (01) ==
LOC: M INFU 07:48
PROVIDERS: ATTEND Internal Medicine
DX: E86.0 Dehydration (principal); Z91.041 Radiographic dye allergy status; Z91.040 Latex allergy status; Z88.5 Allergy status to narcotic agent

== ENCOUNTER 2018-09-23 07:45 | Outpatient (CLI) | payer MEDICARE, OTHER ==
[~2018-09-23] VITALS: Ht 162.6 cm; Wt 81.6 kg
[2018-09-23 07:45] VITALS: BP 106/53
[2018-09-23] MEDS ORDERED: NS 1,000 ML IV SCH (08:00)
[2018-09-23 10:00] VITALS: BP 98/51
== END 2018-09-23 10:00 | disposition home or self-care (01) ==
LOC: M INFU 07:45
PROVIDERS: ATTEND Internal Medicine
DX: E86.0 Dehydration (principal); Z91.041 Radiographic dye allergy status; Z91.040 Latex allergy status

== ENCOUNTER 2018-09-30 07:33 | Outpatient (CLI) | payer MEDICARE, OTHER ==
[~2018-09-30] VITALS: Ht 160 cm; Wt 81.8 kg
[~2018-09-30 07:33] MED LIST changes: +NS 1,000 ML IV ONE
[2018-09-30 07:35] VITALS: BP 102/59
[2018-09-30 09:28] VITALS: BP 103/53
== END 2018-09-30 09:30 | disposition home or self-care (01) ==
LOC: M INFU 07:33
PROVIDERS: ATTEND Internal Medicine
DX: E86.0 Dehydration (principal); Z91.041 Radiographic dye allergy status; Z91.040 Latex allergy status; Z88.5 Allergy status to narcotic agent

== ENCOUNTER 2018-10-02 17:19 | Emergency (ER) | payer MEDICARE, OTHER ==
[~2018-10-02] VITALS: Ht 162.6 cm; Wt 81.8 kg
[~2018-10-02 17:19] MED LIST changes: -NS 1,000 ML IV ONE
[2018-10-02] MEDS ORDERED: KETOROLAC 60 MG/2 ML VIAL (J1885) IM ONE (20:15)
[2018-10-02] MEDS ORDERED: PERCOCET 5MG/325MG TAB PO ONE (21:30)
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
[2018-10-02] MEDS ORDERED: LORazepam 2 MG/ML VIAL (J2060) IV ONE (22:45)
[2018-10-02 23:53] VITALS: BP 140/80
[2018-10-03] MEDS ORDERED: PERCOCET 5MG/325MG TAB PO ONE
--- NOTE | 2018-10-03 07:31 | REP ---
Lumbar spine five views: There are no comparisons. Vertebral body heights, interspacing alignment are normal except for moderate degenerative disc disease at L4-5. There is no spondylolysis. There is no spondylolisthesis. The pedicles and facets are unremarkable. The sacroiliac articulations are unremarkable. Impression: Moderate L4-5 degenerative disc disease. Otherwise, negative lumbar spine. Surgical clips are incidentally noted in the abdominal right upper quadrant. Electronically Signed by Evan Blas MD 10/03/2018 07:23 A
--- NOTE | 2018-10-03 07:32 | REP ---
Left clavicle two views : There is no fracture or dislocation. Mineralization and joint spaces are normal. There are no calcifications or foreign bodies. Impression: Negative left clavicle. A left subclavian central venous catheter is incidentally identified. . Electronically Signed by Evan Blas MD 10/03/2018 07:24 A
== END 2018-10-02 23:59 | disposition short-term general hospital (02) ==
LOC: M ED 17:19
DX: R93.0 Abnormal findings on diagnostic imaging of skull and head, not elsewhere classified (principal); V57.5XXA Driver of pick-up truck or van injured in collision with fixed or stationary object in traffic accident, initial encounter; Y92.410 Unspecified street and highway as the place of occurrence of the external cause; I95.9 Hypotension, unspecified; F43.10 Post-traumatic stress disorder, unspecified; F41.9 Anxiety disorder, unspecified; F32.9 Major depressive disorder, single episode, unspecified; Z87.442 Personal history of urinary calculi; Z87.891 Personal history of nicotine dependence; Z91.041 Radiographic dye allergy status; Z88.8 Allergy status to other drugs, medicaments and biological substances; Z88.5 Allergy status to narcotic agent; Z91.040 Latex allergy status; Z79.899 Other long term (current) drug therapy
CPT/HCPCS: 70450; 72110; 72125; 73000; 74176; 96372; 96374; 99284; J1885; J2060

== ENCOUNTER → 2018-10-04 | Outpatient (CLI) | payer MEDICARE, OTHER ==
[~2018-10-04] MED LIST changes: +LIDOCAINE 2% MDV 20 ML VIAL As Ordered ONE; +MIDAZOLAM INJ 2 MG/2 ML VIAL (J2250) As Ordered ONE; +PROHANCE 279.3MG/ML 5ML VIAL (A9576) As Ordered ONE; +ceFAZolin 1GM INJ (J0690 PER 500MG) As Ordered ONE; +fentaNYL 100 MCG/2 ML INJECTION (J3010) As Ordered ONE
--- NOTE | 2018-10-16 13:08 | REPIR ---
DATE OF PROCEDURE: 10/04/2018 ATTENDING SURGEON: Dr. Valerie Goldsmith OUTSIDE OPERATOR: Harshal Cm and Carly Ross PREOPERATIVE DIAGNOSES: Ulcerative colitis. Dysfunctional left subclavian vein Port-a-Cath. POSTOPERATIVE DIAGNOSES Ulcerative colitis. Dysfunctional left subclavian vein Port-a-Cath. PROCEDURE: Removal of left subclavian vein Port-a-Cath. Ultrasound-guided right internal jugular vein cannulation. Fluoroscopic guided right internal jugular vein 23 cm tunneled central venous catheter with subcutaneous port. INDICATION: Patient is a 38-year-old female with Crohn's disease who requires access for instillation of medications and laboratory evaluation who underwent placement of a left subclavian vein Port-a-Cath which has been painful and dysfunctional. The patient will undergo removal of the left subclavian vein Port-a-Cath and placement of a new right internal jugular vein Port-a-Cath. Risks, benefits and alternative options were discussed with the patient. ANESTHESIA: Local with sedation with 2 mg Versed, 100 mcg of fentanyl and 30 mL of 2% lidocaine. FLUORO TIME: 0.3 minutes. CONTRAST: None. SEDATION TIME: Was from 8:19 a.m. to 09:14 a.m. COMPLICATIONS: None. DRAINS: None. SPECIMENS: None. IMPLANTS: Right internal jugular vein 23 cm Port-a-Cath placement. PROCEDURE: Patient was taken to the angiography suite, placed supine on the angiography room table and then prepped and draped in a standard surgical fashion. The left subclavian vein Port-a-Cath was removed through the previous incision after anesthetizing overlying skin with 2% lidocaine. Hemostasis was obtained after which the wound was closed using #3-0 Monocryl suture in an inverted interrupted fashion. Steri-Strips and dressings were then applied. Ultrasound was then used to guide cannulation of the right internal jugular vein. The port was placed in a pocket created in the right chest and tunneled to the right internal jugular vein and the catheter was advanced through the introducer sheath which was placed under fluoroscopic guidance and positioned with the tip in the superior vena cava/right atrial junction. The port was aspirated and flushed and noted to aspirate and flush easily. The incision in the right chest was closed using #3-0 Monocryl in an inverted interrupted fashion. The puncture wound in the right neck was closed using #3-0 Monocryl in an inverted interrupted fashion. Steri-Strips and dressings were applied. The patient tolerated the procedure well. All instrument, sponge and needle counts were correct at the end of the case. There were no complications. Dr. Goldsmith was present for and directed the entire case. Final fluoroscopic image showed the right internal jugular vein tunneled central venous catheter with subcutaneous port to be in good position and good alignment with no pneumothorax or hemothorax. The port was stable for use for access.
== END | disposition home or self-care (01) ==
LOC: M IRPRO 06:45
PROVIDERS: ATTEND Surgery Vascular Surgery
DX: T82.848A Pain due to vascular prosthetic devices, implants and grafts, initial encounter (principal); K51.90 Ulcerative colitis, unspecified, without complications
CPT/HCPCS: 36561; 36590; 77001; C1788; C1894; J0690; J2250; J3010

== ENCOUNTER 2018-10-07 07:56 | Outpatient (CLI) | payer MEDICARE, OTHER ==
[~2018-10-07] VITALS: Ht 162.6 cm; Wt 81.8 kg
[~2018-10-07 07:56] MED LIST changes: -LIDOCAINE 2% MDV 20 ML VIAL As Ordered ONE; -MIDAZOLAM INJ 2 MG/2 ML VIAL (J2250) As Ordered ONE; -PROHANCE 279.3MG/ML 5ML VIAL (A9576) As Ordered ONE; -ceFAZolin 1GM INJ (J0690 PER 500MG) As Ordered ONE; -fentaNYL 100 MCG/2 ML INJECTION (J3010) As Ordered ONE
[2018-10-07 08:10] VITALS: BP 127/81
[2018-10-07] MEDS ORDERED: NS 1,000 ML IV ONE (08:15)
[2018-10-07 10:00] VITALS: BP 106/64
== END 2018-10-07 10:00 | disposition home or self-care (01) ==
LOC: M INFU 07:56
PROVIDERS: ATTEND Internal Medicine
DX: E86.0 Dehydration (principal); K51.90 Ulcerative colitis, unspecified, without complications; Z88.5 Allergy status to narcotic agent; Z88.8 Allergy status to other drugs, medicaments and biological substances; Z91.040 Latex allergy status; Z91.041 Radiographic dye allergy status

== ENCOUNTER 2018-10-14 07:25 | Outpatient (CLI) | payer MEDICARE, OTHER ==
[~2018-10-14] VITALS: Ht 162.6 cm; Wt 81.8 kg
[2018-10-14 07:35] VITALS: BP 124/74
[2018-10-14] MEDS ORDERED: NS 1,000 ML IV SCH (08:00)
[2018-10-14] MEDS ORDERED: SODIUM CHLORIDE 0.9% INJ 10 ML SYR IV SCH (09:00)
[2018-10-14 09:35] VITALS: BP 96/54
== END 2018-10-14 09:35 | disposition home or self-care (01) ==
LOC: M INFU 07:25
PROVIDERS: ATTEND Internal Medicine
DX: E86.0 Dehydration (principal); Z79.891 Long term (current) use of opiate analgesic; Z79.899 Other long term (current) drug therapy; Z91.041 Radiographic dye allergy status; Z91.040 Latex allergy status; Z88.5 Allergy status to narcotic agent; Z88.8 Allergy status to other drugs, medicaments and biological substances

== ENCOUNTER 2018-10-21 07:27 | Outpatient (CLI) | payer MEDICARE, OTHER ==
[~2018-10-21] VITALS: Ht 162.6 cm; Wt 81.8 kg
[~2018-10-21 07:27] MED LIST changes: +NS 1,000 ML IV SCH
[2018-10-21 07:30] VITALS: BP 114/68
[2018-10-21] MEDS ORDERED: SODIUM CHLORIDE 0.9% INJ 10 ML SYR IV SCH (09:00)
[2018-10-21 09:25] VITALS: BP 121/77
== END 2018-10-21 09:25 | disposition home or self-care (01) ==
LOC: M INFU 07:27
PROVIDERS: ATTEND Internal Medicine
DX: E86.0 Dehydration (principal); Z91.041 Radiographic dye allergy status; Z91.040 Latex allergy status; Z88.5 Allergy status to narcotic agent

== ENCOUNTER 2018-10-28 07:28 | Outpatient (CLI) | payer MEDICARE, OTHER ==
[~2018-10-28] VITALS: Ht 162.6 cm; Wt 81.8 kg
[~2018-10-28 07:28] MED LIST changes: +NS 1,000 ML IV ONE; -NS 1,000 ML IV SCH
[2018-10-28 07:45] VITALS: BP 129/68
[2018-10-28] MEDS ORDERED: SODIUM CHLORIDE 0.9% INJ 10 ML SYR IV SCH (09:00)
[2018-10-28 09:40] VITALS: BP 114/67
== END 2018-10-28 09:45 | disposition home or self-care (01) ==
LOC: M INFU 07:28
PROVIDERS: ATTEND Internal Medicine
DX: E86.0 Dehydration (principal); Z91.041 Radiographic dye allergy status; Z88.5 Allergy status to narcotic agent; Z91.040 Latex allergy status

== ENCOUNTER 2018-11-04 07:27 | Outpatient (CLI) | payer MEDICARE, OTHER ==
[~2018-11-04] VITALS: Ht 162.6 cm; Wt 81.8 kg
[2018-11-04 07:30] VITALS: BP 114/72
[2018-11-04] MEDS ORDERED: SODIUM CHLORIDE 0.9% INJ 10 ML SYR IV SCH (09:00)
== END 2018-11-04 09:20 | disposition home or self-care (01) ==
LOC: M INFU 07:27
PROVIDERS: ATTEND Internal Medicine
DX: E86.0 Dehydration (principal); Z91.040 Latex allergy status; Z91.041 Radiographic dye allergy status

== ENCOUNTER 2018-11-11 07:32 | Outpatient (CLI) | payer MEDICARE, OTHER ==
[~2018-11-11] VITALS: Ht 162.6 cm; Wt 81.8 kg
[~2018-11-11 07:32] MED LIST changes: -/ONDA4TA OR; -/ONDA4TA PO; -/PANT40TA PO; -ACET50TA PO; +HYDR-3715 PO; +IBUP100S44 FT; -IBUP100SUS FT; +MAPA500T17 PO; -NORCOTAB PO; +ONDA-1 OR; +ONDA-1 PO; +ONDA-227 PO; +OXYC1TAB23 PO; -PERCOCET PO; +SODIUM CHLORIDE 0.9% INJ 10 ML SYR IV SCH; +TRAZ1TAB36 PO; -TRAZO50TA PO; -ZOFR8TAB PO
[2018-11-11 07:37] VITALS: BP 114/72
[2018-11-11 08:13] LABS: BASO # 0.1 10^3/uL (0.0-0.2); BASO % 0.5 % (0.0-1.0); EOS # 0.2 10^3/uL (0.0-0.50); EOS % 1.8 % (0.0-3.0); HEMATOCRIT 36.9 % (36.0-47.0); HEMOGLOBIN 12.2 g/dl (12.0-15.5); LYMPH # 4.4 10^3/uL (1.5-4.5); MEAN CORPUSCULAR HEMOGLOBIN 30.5 pg (27.0-33.0); MEAN CORPUSCULAR HGB CONC 33.1 g/dl (32.0-36.5); MEAN CORPUSCULAR VOLUME 92.3 fl (80.0-96.0); MONO # 0.7 10^3/uL (0.0-0.8); MONO % 6.6 % (0.0-5.0); NEUTROPHILS # 5.4 10^3/uL (1.8-7.7); NEUTROPHILS % 49.9 % (36.0-66.0); PLATELET COUNT, AUTOMATED 256 10^3/uL (150-450); WHITE BLOOD COUNT 10.7 10^3/uL (4.0-10.0)
[2018-11-11 08:35] VITALS: BP 129/74
[2018-11-11 08:43] LABS: ERYTHROCYTE SEDIMENTATION RATE 10 mm/hr (0-20)
[2018-11-11 08:45] LABS: ALBUMIN 3.9 GM/DL (3.2-5.2); ALT/SGPT 23 U/L (12-78); BILIRUBIN,TOTAL 0.2 MG/DL (0.2-1.0); BLOOD UREA NITROGEN 14 MG/DL (7-18); C REACTIVE PROTEIN QUANTITATIV < 0.30 MG/DL (0.00-0.30); CALCIUM LEVEL 8.4 MG/DL (8.5-10.1); CARBON DIOXIDE LEVEL 25 MEQ/L (21-32); CHLORIDE LEVEL 109 MEQ/L (98-107); CHOLESTEROL LEVEL 207 MG/DL (<200); CHOLESTEROL RISK RATIO 5.307 (<5); CREATININE FOR GFR 0.61 MG/DL (0.55-1.30); GLOMERULAR FILTRATION RATE > 60.0 (>60); GLUCOSE, FASTING 119 MG/DL (70-100); HDL CHOLESTEROL 39 MG/DL (>40); LIPASE 201 U/L (73-393); NON-HDL-C 168 MG/DL; POTASSIUM SERUM 3.9 MEQ/L (3.5-5.1); SODIUM LEVEL 140 MEQ/L (136-145); TRIGLYCERIDES LEVEL 669 MG/DL (<150)
[2018-11-11 09:50] VITALS: BP_SYST 117; BP_SYST 147; BP_DIAS 72; BP_DIAS 82
== END 2018-11-11 10:20 | disposition home or self-care (01) ==
LOC: M INFU 07:32
PROVIDERS: ATTEND Internal Medicine
DX: E86.0 Dehydration (principal); Z88.5 Allergy status to narcotic agent; Z88.1 Allergy status to other antibiotic agents; Z91.040 Latex allergy status; Z91.041 Radiographic dye allergy status; E78.5 Hyperlipidemia, unspecified

== ENCOUNTER 2018-11-15 07:24 | Outpatient (CLI) | payer MEDICARE, OTHER ==
[~2018-11-15 07:24] MED LIST changes: -NS 1,000 ML IV ONE; +NS 2,000 ML IV ONE; -SODIUM CHLORIDE 0.9% INJ 10 ML SYR IV SCH
[2018-11-15 07:30] VITALS: BP 110/76
[2018-11-15] MEDS ORDERED: SODIUM CHLORIDE 0.9% INJ 10 ML SYR IV SCH (09:00)
[2018-11-15 09:15] VITALS: BP 119/64
== END 2018-11-15 09:15 | disposition home or self-care (01) ==
LOC: M INFU 07:24
PROVIDERS: ATTEND Internal Medicine
DX: E86.0 Dehydration (principal); Z88.5 Allergy status to narcotic agent; Z88.1 Allergy status to other antibiotic agents; Z91.040 Latex allergy status; Z91.041 Radiographic dye allergy status

== ENCOUNTER 2018-11-18 07:27 | Outpatient (CLI) | payer MEDICARE, OTHER ==
[~2018-11-18] VITALS: Ht 162.6 cm; Wt 81.8 kg
[~2018-11-18 07:27] MED LIST changes: -NS 2,000 ML IV ONE
[2018-11-18 07:36] VITALS: BP 139/73
[2018-11-18] MEDS: NS 2,000 ML IV SCH ×2 (07:41→09:30)
[2018-11-18] MEDS ORDERED: SODIUM CHLORIDE 0.9% INJ 10 ML SYR IV SCH (09:00)
[2018-11-18 09:15] VITALS: BP 102/61
== END 2018-11-18 09:20 | disposition home or self-care (01) ==
LOC: M INFU 07:27
PROVIDERS: ATTEND Internal Medicine
DX: E86.0 Dehydration (principal)

== ENCOUNTER 2018-11-22 07:36 | Outpatient (CLI) | payer MEDICARE, OTHER ==
[~2018-11-22] VITALS: Ht 162.6 cm; Wt 81.8 kg
[2018-11-22 07:41] VITALS: BP 115/64
[2018-11-22] MEDS ORDERED: NS 2,000 ML IV SCH (08:00)
[2018-11-22] MEDS ORDERED: SODIUM CHLORIDE 0.9% INJ 10 ML SYR IV SCH (09:00)
[2018-11-22 09:31] VITALS: BP 122/66
== END 2018-11-22 09:52 | disposition home or self-care (01) ==
LOC: M INFU 07:36
PROVIDERS: ATTEND Internal Medicine
DX: E86.0 Dehydration (principal); Z88.5 Allergy status to narcotic agent; Z91.041 Radiographic dye allergy status

== ENCOUNTER 2018-11-25 08:32 | Outpatient (CLI) | payer MEDICARE, OTHER ==
[~2018-11-25] VITALS: Ht 162.6 cm; Wt 81.8 kg
[2018-11-25 08:35] VITALS: BP 113/71
[2018-11-25] MEDS ORDERED: NS 2,000 ML IV SCH (09:00)
[2018-11-25] MEDS ORDERED: SODIUM CHLORIDE 0.9% INJ 10 ML SYR IV SCH (09:00)
[2018-11-25 09:08] LABS: BASO # 0.1 10^3/uL (0.0-0.2); BASO % 0.6 % (0.0-1.0); EOS # 0.1 10^3/uL (0.0-0.50); EOS % 1.2 % (0.0-3.0); HEMATOCRIT 38.5 % (36.0-47.0); HEMOGLOBIN 12.8 g/dl (12.0-15.5); LYMPH # 3.8 10^3/uL (1.5-4.5); LYMPH % 31.5 % (24.0-44.0); MEAN CORPUSCULAR HEMOGLOBIN 30.7 pg (27.0-33.0); MEAN CORPUSCULAR HGB CONC 33.2 g/dl (32.0-36.5); MEAN CORPUSCULAR VOLUME 92.3 fl (80.0-96.0); MONO # 0.8 10^3/uL (0.0-0.8); MONO % 6.5 % (0.0-5.0); NEUTROPHILS # 7.1 10^3/uL (1.8-7.7); NEUTROPHILS % 59.7 % (36.0-66.0); PLATELET COUNT, AUTOMATED 349 10^3/uL (150-450); RED BLOOD COUNT 4.17 10^6/uL (4.00-5.40); WHITE BLOOD COUNT 11.9 10^3/uL (4.0-10.0)
[2018-11-25 09:35] LABS: ERYTHROCYTE SEDIMENTATION RATE 44 mm/hr (0-20)
[2018-11-25 09:42] LABS: ALBUMIN 4.2 GM/DL (3.2-5.2); ALT/SGPT 28 U/L (12-78); BILIRUBIN,TOTAL 0.3 MG/DL (0.2-1.0); BLOOD UREA NITROGEN 14 MG/DL (7-18); C REACTIVE PROTEIN QUANTITATIV 0.41 MG/DL (0.00-0.30); CALCIUM LEVEL 9.2 MG/DL (8.5-10.1); CARBON DIOXIDE LEVEL 25 MEQ/L (21-32); CHLORIDE LEVEL 105 MEQ/L (98-107); CHOLESTEROL LEVEL 218 MG/DL (<200); CHOLESTEROL RISK RATIO 4.638 (<5); CREATININE FOR GFR 0.62 MG/DL (0.55-1.30); GLOMERULAR FILTRATION RATE > 60.0 (>60); GLUCOSE, FASTING 116 MG/DL (70-100); HDL CHOLESTEROL 47 MG/DL (>40); LDL CHOLESTEROL 120 MG/DL (<100); LIPASE 235 U/L (73-393); NON-HDL-C 171 MG/DL; POTASSIUM SERUM 4.3 MEQ/L (3.5-5.1); SODIUM LEVEL 136 MEQ/L (136-145); TOTAL PROTEIN 7.8 GM/DL (6.4-8.2); TRIGLYCERIDES LEVEL 253 MG/DL (<150)
[2018-11-25 10:31] VITALS: BP 118/75
== END 2018-11-25 10:33 | disposition home or self-care (01) ==
LOC: M INFU 08:32
PROVIDERS: ATTEND Internal Medicine
DX: E86.0 Dehydration (principal); Z88.5 Allergy status to narcotic agent; Z91.041 Radiographic dye allergy status; E78.5 Hyperlipidemia, unspecified

== ENCOUNTER 2018-11-29 07:02 | Outpatient (CLI) | payer MEDICARE, OTHER ==
[~2018-11-29] VITALS: Ht 162.6 cm; Wt 81.8 kg
[2018-11-29 07:05] VITALS: BP 116/74
[2018-11-29] MEDS ORDERED: NS 2,000 ML IV ONE (07:30)
[2018-11-29 09:00] VITALS: BP 111/56
[2018-11-29] MEDS ORDERED: SODIUM CHLORIDE 0.9% INJ 10 ML SYR IV SCH (09:00)
== END 2018-11-29 09:00 | disposition home or self-care (01) ==
LOC: M INFU 07:02
PROVIDERS: ATTEND Internal Medicine
DX: E86.0 Dehydration (principal); Z88.5 Allergy status to narcotic agent; Z88.1 Allergy status to other antibiotic agents; Z91.041 Radiographic dye allergy status

== ENCOUNTER 2018-12-02 08:31 | Outpatient (CLI) | payer MEDICARE, OTHER ==
[~2018-12-02] VITALS: Ht 162.6 cm; Wt 81.8 kg
[2018-12-02 08:30] VITALS: BP 112/60
[2018-12-02] MEDS ORDERED: NS 1,000 ML IV SCH (08:45)
[2018-12-02] MEDS ORDERED: SODIUM CHLORIDE 0.9% INJ 10 ML SYR IV SCH (09:00)
[2018-12-02 09:13] LABS: BASO # 0.1 10^3/uL (0.0-0.2); BASO % 0.7 % (0.0-1.0); EOS # 0.1 10^3/uL (0.0-0.50); EOS % 0.8 % (0.0-3.0); HEMOGLOBIN 12.5 g/dl (12.0-15.5); LYMPH # 2.6 10^3/uL (1.5-4.5); MEAN CORPUSCULAR HEMOGLOBIN 29.9 pg (27.0-33.0); MEAN CORPUSCULAR HGB CONC 32.9 g/dl (32.0-36.5); MEAN CORPUSCULAR VOLUME 90.9 fl (80.0-96.0); MONO # 0.5 10^3/uL (0.0-0.8); MONO % 5.6 % (0.0-5.0); NEUTROPHILS # 6.3 10^3/uL (1.8-7.7); NEUTROPHILS % 65.6 % (36.0-66.0); PLATELET COUNT, AUTOMATED 355 10^3/uL (150-450); RED BLOOD COUNT 4.18 10^6/uL (4.00-5.40); WHITE BLOOD COUNT 9.6 10^3/uL (4.0-10.0)
[2018-12-02 09:35] LABS: ALBUMIN 4.2 GM/DL (3.2-5.2); ALT/SGPT 22 U/L (12-78); BILIRUBIN,TOTAL 0.4 MG/DL (0.2-1.0); BLOOD UREA NITROGEN 14 MG/DL (7-18); C REACTIVE PROTEIN QUANTITATIV < 0.30 MG/DL (0.00-0.30); CALCIUM LEVEL 8.8 MG/DL (8.5-10.1); CARBON DIOXIDE LEVEL 25 MEQ/L (21-32); CHLORIDE LEVEL 107 MEQ/L (98-107); CHOLESTEROL LEVEL 225 MG/DL (<200); CHOLESTEROL RISK RATIO 4.411 (<5); GLOMERULAR FILTRATION RATE > 60.0 (>60); GLUCOSE, FASTING 128 MG/DL (70-100); HDL CHOLESTEROL 51 MG/DL (>40); LDL CHOLESTEROL 141 MG/DL (<100); LIPASE 81 U/L (73-393); NON-HDL-C 174 MG/DL; POTASSIUM SERUM 4.1 MEQ/L (3.5-5.1); SODIUM LEVEL 136 MEQ/L (136-145); TOTAL PROTEIN 7.5 GM/DL (6.4-8.2); TRIGLYCERIDES LEVEL 163 MG/DL (<150)
[2018-12-02 09:59] LABS: ERYTHROCYTE SEDIMENTATION RATE 26 mm/hr (0-20)
[2018-12-02 10:35] VITALS: BP 100/59
== END 2018-12-02 10:35 | disposition home or self-care (01) ==
LOC: M INFU 08:31
PROVIDERS: ATTEND Internal Medicine
DX: E86.0 Dehydration (principal); E78.5 Hyperlipidemia, unspecified; Z88.1 Allergy status to other antibiotic agents; Z88.5 Allergy status to narcotic agent; Z91.040 Latex allergy status; Z91.041 Radiographic dye allergy status

== ENCOUNTER 2018-12-06 07:39 | Outpatient (CLI) | payer MEDICARE, OTHER ==
[~2018-12-06] VITALS: Ht 162.6 cm; Wt 81.8 kg
[2018-12-06 07:30] VITALS: BP 111/60
[2018-12-06] MEDS ORDERED: NS 1,000 ML IV SCH (08:00)
[2018-12-06] MEDS ORDERED: SODIUM CHLORIDE 0.9% INJ 10 ML SYR IV SCH (09:00)
[2018-12-06 10:40] VITALS: BP 116/61
--- NOTE | 2018-12-06 10:53 | CR.PDOC ---
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 No medical complaints. Denies cough, shortness of breath, chest pain, headaches. Recent labs reviewed. ALLERGIES: Please see below. HOME MEDICATIONS: Please see below. PAST MEDICAL HISTORY: 1. Ulcerative colitis s/p surgical intervention 2. Chronic dehydration 3. dyslipidemia 4. anxiety/depression 5. recurrent pancreatitis PAST SURGICAL HISTORY: 1. partial colectomy and further surgical intervention for UC REVIEW OF SYSTEMS: As per HPI PHYSICAL EXAMINATION: General: NAD, lying comfortably in bed HEENT: NC/AT, EOMI Lungs: CTA B/L Heart: +S1S2, RRR Abd: soft, NT, obese, +BS Ext: no edema, multiple tattoos LABORATORY DATA: Please see below. ASSESSMENT/PLAN: 38 yo female PMHx ulcerative colitis, chronic dehydration requiring routine IV hydration Plan: #Dehydration - 1L NS IV as per recommendations of GI Dr. Glass #UC - as per GI #dyslipidemia - uncontrolled - lifestyle modifications discussed with patient - recommend follow up lipid profile/pharmacologic intervention as per recs from PCP #anxiety/depression Allergies Coded Allergies: Contrast Media (Verified Allergy, Severe, ANAPHYLACTIC SHOCK, 05/28/18) povidone-iodine (Unverified Allergy, Intermediate, CONTACT DERMITITIS, 11/15/18) ibuprofen (Unverified Allergy, Unknown, 11/15/18) latex (Unverified Allergy, Unknown, 11/15/18) lidocaine (Unverified Allergy, Unknown, 11/15/18) morphine (Unverified Adverse Reaction, Intermediate, HEADACHE , NAUSEA, 11/15/18) Home Medications Scheduled Atorvastatin Calcium (Atorvastatin Calcium) 20 Mg Tab, 20 MG PO DAILY, (Reported) Buspirone HCl (Buspirone HCl) 15 Mg Tab, 15 MG PO BID, (Reported) Certolizumab Pegol (Cimzia) 200 Mg Kit, 200 MG SC Q2WK, (Reported) EVERY OTHER SUNDAY Desvenlafaxine Succinate (Pristiq) 100 Mg Tab, 100 MG PO DAILY, (Reported) Gemfibrozil (Gemfibrozil) 600 Mg Tab, 600 MG PO DAILY, (Reported) Pantoprazole Sodium (Protonix) 40 Mg Tab, 40 MG PO DAILY for 30 Days, #30 (Reported) Trazodone HCl (Trazodone HCl) 150 Mg Tab, 75 MG PO QHS, (Reported) Scheduled PRN Clonazepam (Clonazepam) 1 Mg Tab, 1 MG PO TID PRN for ANXIETY, (Reported) Ondansetron HCl (Zofran) 4 Mg Tab, 4 MG PO Q6HP PRN for NAUSEA, (Reported) Oxycodone HCl (Oxycodone HCl) 10 Mg Tab, 10 MG PO 5XD PRN for PAIN, (Reported) Oxycodone HCl/Acetaminophen (Percocet 10-325 mg Tablet) 1 Tab Tab, 2 TAB PO QID PRN for PAIN, (Reported) GENESIS NAVA MD Dec 06, 2018 10:53
== END 2018-12-06 10:40 | disposition home or self-care (01) ==
LOC: M INFU 07:39
PROVIDERS: ATTEND Internal Medicine
DX: E86.0 Dehydration (principal); Z88.5 Allergy status to narcotic agent; Z88.1 Allergy status to other antibiotic agents; Z91.041 Radiographic dye allergy status

== ENCOUNTER 2018-12-09 08:32 | Outpatient (CLI) | payer MEDICARE, OTHER ==
[~2018-12-09] VITALS: Ht 162.6 cm; Wt 81.8 kg
[~2018-12-09 08:32] MED LIST changes: +NS 1,000 ML IV ONE
[2018-12-09 08:42] VITALS: BP 107/58
[2018-12-09] MEDS ORDERED: SODIUM CHLORIDE 0.9% INJ 10 ML SYR IV SCH (09:00)
[2018-12-09 10:28] VITALS: BP 98/51
== END 2018-12-09 10:30 | disposition home or self-care (01) ==
LOC: M INFU 08:32
PROVIDERS: ATTEND Internal Medicine
DX: E86.0 Dehydration (principal)

== ENCOUNTER 2018-12-13 07:41 | Outpatient (CLI) | payer MEDICARE, OTHER ==
[~2018-12-13] VITALS: Ht 162.6 cm; Wt 81.8 kg
[~2018-12-13 07:41] MED LIST changes: -NS 1,000 ML IV ONE; +NS 1,000 ML IV SCH
[2018-12-13 07:54] VITALS: BP 111/60
[2018-12-13] MEDS ORDERED: SODIUM CHLORIDE 0.9% INJ 10 ML SYR IV SCH (09:00)
[2018-12-13 09:30] VITALS: BP 119/55
== END 2018-12-13 09:30 | disposition home or self-care (01) ==
LOC: M INFU 07:41
PROVIDERS: ATTEND Internal Medicine
DX: E86.0 Dehydration (principal); Z88.5 Allergy status to narcotic agent; Z88.0 Allergy status to penicillin; Z88.1 Allergy status to other antibiotic agents; Z88.2 Allergy status to sulfonamides; Z91.040 Latex allergy status; Z91.041 Radiographic dye allergy status

== ENCOUNTER 2018-12-16 07:12 | Outpatient (CLI) | payer MEDICARE, OTHER ==
[~2018-12-16] VITALS: Ht 162.6 cm; Wt 81.8 kg
[~2018-12-16 07:12] MED LIST changes: -NS 1,000 ML IV SCH
[2018-12-16 07:15] VITALS: BP 116/81
[2018-12-16] MEDS ORDERED: NS 1,000 ML IV ONE (07:30)
[2018-12-16 07:46] LABS: HEMATOCRIT 38.3 % (36.0-47.0); HEMOGLOBIN 13.4 g/dl (12.0-15.5); MEAN CORPUSCULAR HEMOGLOBIN 32.8 pg (27.0-33.0); MEAN CORPUSCULAR VOLUME 93.9 fl (80.0-96.0); PLATELET COUNT, AUTOMATED 300 10^3/uL (150-450); RED BLOOD COUNT 4.08 10^6/uL (4.00-5.40); WHITE BLOOD COUNT 17.3 10^3/uL (4.0-10.0)
[2018-12-16 08:48] LABS: EOSINOPHILS 1 % (0-5); LYMPHOCYTES 26 % (16-52); NEUTROPHILS 72 % (35-75)
[2018-12-16 08:52] LABS: ANISOCYTOSIS 1+; PLATELET ESTIMATE NORMAL (NORMAL); POLYCHROMASIA 1+
[2018-12-16 08:56] LABS: ERYTHROCYTE SEDIMENTATION RATE 18 mm/hr (0-20)
[2018-12-16] MEDS ORDERED: SODIUM CHLORIDE 0.9% INJ 10 ML SYR IV SCH (09:00)
[2018-12-16 09:15] VITALS: BP 101/56
[2018-12-16 10:40] LABS: ALBUMIN 3.8 GM/DL (3.2-5.2); ALT/SGPT 31 U/L (12-78); BILIRUBIN,TOTAL 0.4 MG/DL (0.2-1.0); BLOOD UREA NITROGEN 16 MG/DL (7-18); C REACTIVE PROTEIN QUANTITATIV < 0.30 MG/DL (0.00-0.30); CALCIUM LEVEL 9.1 MG/DL (8.5-10.1); CARBON DIOXIDE LEVEL 27 MEQ/L (21-32); CHLORIDE LEVEL 105 MEQ/L (98-107); CHOLESTEROL LEVEL 259 MG/DL (<200); CREATININE FOR GFR 0.63 MG/DL (0.55-1.30); GLOMERULAR FILTRATION RATE > 60.0 (>60); GLUCOSE, FASTING 123 MG/DL (70-100); HDL CHOLESTEROL 35 MG/DL (>40); LIPASE 207 U/L (73-393); NON-HDL-C 224 MG/DL; POTASSIUM SERUM 4.4 MEQ/L (3.5-5.1); SODIUM LEVEL 136 MEQ/L (136-145); TOTAL PROTEIN 7.1 GM/DL (6.4-8.2); TRIGLYCERIDES LEVEL 1114 MG/DL (<150)
== END 2018-12-16 09:15 | disposition home or self-care (01) ==
LOC: M INFU 07:12
PROVIDERS: ATTEND Internal Medicine
DX: E86.0 Dehydration (principal); Z88.5 Allergy status to narcotic agent; Z88.8 Allergy status to other drugs, medicaments and biological substances; Z88.0 Allergy status to penicillin; Z88.1 Allergy status to other antibiotic agents; Z88.2 Allergy status to sulfonamides; Z91.040 Latex allergy status; Z91.041 Radiographic dye allergy status; Z79.899 Other long term (current) drug therapy

== ENCOUNTER 2018-12-19 08:27 | Outpatient (CLI) | payer MEDICARE, OTHER ==
[~2018-12-19] VITALS: Ht 162.6 cm; Wt 81.8 kg
[~2018-12-19 08:27] MED LIST changes: +NS 1,000 ML IV SCH
[2018-12-19 08:35] VITALS: BP 111/80
[2018-12-19] MEDS ORDERED: SODIUM CHLORIDE 0.9% INJ 10 ML SYR IV SCH (09:00)
== END 2018-12-19 10:50 | disposition home or self-care (01) ==
LOC: M INFU 08:27
PROVIDERS: ATTEND Internal Medicine
DX: E86.0 Dehydration (principal)

== ENCOUNTER 2018-12-23 07:35 | Outpatient (CLI) | payer MEDICARE, OTHER ==
[~2018-12-23] VITALS: Ht 162.6 cm; Wt 81.8 kg
[~2018-12-23 07:35] MED LIST changes: +NS 1,000 ML IV ONE; -NS 1,000 ML IV SCH; +SODIUM CHLORIDE 0.9% INJ 10 ML SYR IV SCH
[2018-12-23 07:45] VITALS: BP 108/60
[2018-12-23 09:40] VITALS: BP 104/64
== END 2018-12-23 09:40 | disposition home or self-care (01) ==
LOC: M INFU 07:35
PROVIDERS: ATTEND Internal Medicine
DX: E86.0 Dehydration (principal)

== ENCOUNTER 2018-12-30 07:45 | Outpatient (CLI) | payer MEDICARE, OTHER ==
[~2018-12-30] VITALS: Ht 162.6 cm; Wt 81.8 kg
[~2018-12-30 07:45] MED LIST changes: -NS 1,000 ML IV ONE; -SODIUM CHLORIDE 0.9% INJ 10 ML SYR IV SCH
[2018-12-30 07:54] VITALS: BP 116/68
[2018-12-30] MEDS ORDERED: NS 1,000 ML IV SCH (08:00)
[2018-12-30 08:10] LABS: HEMATOCRIT 38.3 % (36.0-47.0); HEMOGLOBIN 12.5 g/dl (12.0-15.5); MEAN CORPUSCULAR HEMOGLOBIN 30.1 pg (27.0-33.0); MEAN CORPUSCULAR HGB CONC 32.6 g/dl (32.0-36.5); MEAN CORPUSCULAR VOLUME 92.3 fl (80.0-96.0); PLATELET COUNT, AUTOMATED 342 10^3/uL (150-450); RED BLOOD COUNT 4.15 10^6/uL (4.00-5.40); WHITE BLOOD COUNT 11.6 10^3/uL (4.0-10.0)
[2018-12-30 08:33] LABS: ERYTHROCYTE SEDIMENTATION RATE 27 mm/hr (0-20)
[2018-12-30 08:45] LABS: ALBUMIN 4.2 GM/DL (3.2-5.2); ALT/SGPT 30 U/L (12-78); BILIRUBIN,TOTAL 0.2 MG/DL (0.2-1.0); BLOOD UREA NITROGEN 19 MG/DL (7-18); C REACTIVE PROTEIN QUANTITATIV < 0.30 MG/DL (0.00-0.30); CALCIUM LEVEL 8.6 MG/DL (8.5-10.1); CARBON DIOXIDE LEVEL 24 MEQ/L (21-32); CHLORIDE LEVEL 107 MEQ/L (98-107); CHOLESTEROL LEVEL 253 MG/DL (<200); GLOMERULAR FILTRATION RATE > 60.0 (>60); GLUCOSE, FASTING 126 MG/DL (70-100); HDL CHOLESTEROL 46 MG/DL (>40); LIPASE 959 U/L (73-393); NON-HDL-C 207 MG/DL; POTASSIUM SERUM 4.5 MEQ/L (3.5-5.1); SODIUM LEVEL 137 MEQ/L (136-145); TOTAL PROTEIN 7.7 GM/DL (6.4-8.2); TRIGLYCERIDES LEVEL 401 MG/DL (<150)
[2018-12-30] MEDS ORDERED: SODIUM CHLORIDE 0.9% INJ 10 ML SYR IV SCH (09:00)
[2018-12-30 09:35] VITALS: BP 110/66
[2018-12-30 09:45] LABS: ATYPICAL LYMPH 3 % (0-5); EOSINOPHILS 1 % (0-5); LYMPHOCYTES 46 % (16-52); MONOCYTES 6 % (0-8); NEUTROPHILS 43 % (35-75); PLATELET ESTIMATE NORMAL (NORMAL)
== END 2018-12-30 09:45 | disposition home or self-care (01) ==
LOC: M INFU 07:45
PROVIDERS: ATTEND Internal Medicine
DX: E86.0 Dehydration (principal); E78.5 Hyperlipidemia, unspecified

== ENCOUNTER 2019-01-02 08:30 | Outpatient (CLI) | payer MEDICARE, OTHER ==
[~2019-01-02] VITALS: Ht 162.6 cm; Wt 81.8 kg
[2019-01-02 08:30] VITALS: BP 102/57
[~2019-01-02 08:30] MED LIST changes: +NS 1,000 ML IV SCH
[2019-01-02] MEDS ORDERED: SODIUM CHLORIDE 0.9% INJ 10 ML SYR IV SCH (09:00)
[2019-01-02 10:32] VITALS: BP 104/60
== END 2019-01-02 10:45 | disposition home or self-care (01) ==
LOC: M INFU 08:30
PROVIDERS: ATTEND Internal Medicine
DX: E86.0 Dehydration (principal); Z88.0 Allergy status to penicillin; Z88.1 Allergy status to other antibiotic agents; Z88.2 Allergy status to sulfonamides; Z91.041 Radiographic dye allergy status; Z91.040 Latex allergy status; Z88.5 Allergy status to narcotic agent

== ENCOUNTER 2019-01-06 09:14 | Outpatient (CLI) | payer MEDICARE, OTHER ==
[~2019-01-06] VITALS: Ht 162.6 cm; Wt 81.8 kg
[~2019-01-06 09:14] MED LIST changes: +SODIUM CHLORIDE 0.9% INJ 10 ML SYR IV SCH
[2019-01-06 09:15] VITALS: BP 108/56
[2019-01-06 11:15] VITALS: BP 103/57
== END 2019-01-06 11:15 | disposition home or self-care (01) ==
LOC: M INFU 09:14
PROVIDERS: ATTEND Internal Medicine
DX: E86.0 Dehydration (principal)

== ENCOUNTER → 2019-01-14 | Outpatient (CLI) | payer MEDICARE, OTHER ==
[~2019-01-14] VITALS: Ht 162.6 cm; Wt 81.8 kg
[2019-01-14 09:45] VITALS: BP 110/63
[2019-01-14 10:28] LABS: HEMATOCRIT 37.1 % (36.0-47.0); HEMOGLOBIN 12.4 g/dl (12.0-15.5); MEAN CORPUSCULAR HEMOGLOBIN 31.3 pg (27.0-33.0); MEAN CORPUSCULAR HGB CONC 33.4 g/dl (32.0-36.5); MEAN CORPUSCULAR VOLUME 93.7 fl (80.0-96.0); PLATELET COUNT, AUTOMATED 282 10^3/uL (150-450); RED BLOOD COUNT 3.96 10^6/uL (4.00-5.40); WHITE BLOOD COUNT 13.6 10^3/uL (4.0-10.0)
[2019-01-14 10:49] LABS: ERYTHROCYTE SEDIMENTATION RATE 20 mm/hr (0-20)
[2019-01-14 10:56] LABS: ALT/SGPT 29 U/L (12-78); BILIRUBIN,TOTAL 0.3 MG/DL (0.2-1.0); BLOOD UREA NITROGEN 20 MG/DL (7-18); C REACTIVE PROTEIN QUANTITATIV 0.34 MG/DL (0.00-0.30); CALCIUM LEVEL 8.9 MG/DL (8.5-10.1); CARBON DIOXIDE LEVEL 24 MEQ/L (21-32); CHLORIDE LEVEL 107 MEQ/L (98-107); CHOLESTEROL LEVEL 237 MG/DL (<200); CHOLESTEROL RISK RATIO 4.471 (<5); CREATININE FOR GFR 0.64 MG/DL (0.55-1.30); GLOMERULAR FILTRATION RATE > 60.0 (>60); GLUCOSE, FASTING 114 MG/DL (70-100); HDL CHOLESTEROL 53 MG/DL (>40); LDL CHOLESTEROL 137 MG/DL (<100); LIPASE 83 U/L (73-393); NON-HDL-C 184 MG/DL; POTASSIUM SERUM 4.5 MEQ/L (3.5-5.1); SODIUM LEVEL 137 MEQ/L (136-145); TOTAL PROTEIN 7.1 GM/DL (6.4-8.2); TRIGLYCERIDES LEVEL 236 MG/DL (<150)
[2019-01-14 11:30] VITALS: BP 112/72
== END ==
LOC: M INFU 09:40
PROVIDERS: ATTEND Internal Medicine
DX: E86.0 Dehydration (principal); Z88.5 Allergy status to narcotic agent; Z91.040 Latex allergy status; Z91.041 Radiographic dye allergy status; Z88.2 Allergy status to sulfonamides; E78.5 Hyperlipidemia, unspecified; Z79.899 Other long term (current) drug therapy

== ENCOUNTER 2019-01-16 07:34 | Outpatient (CLI) | payer MEDICARE, OTHER ==
[~2019-01-16] VITALS: Ht 160 cm; Wt 81.8 kg
[~2019-01-16 07:34] MED LIST changes: +NS 1,000 ML IV ONE; -NS 1,000 ML IV SCH
[2019-01-16 07:35] VITALS: BP 123/69
[2019-01-16 09:45] VITALS: BP 103/60
== END 2019-01-16 09:45 | disposition home or self-care (01) ==
LOC: M INFU 07:34
PROVIDERS: ATTEND Internal Medicine
DX: E86.0 Dehydration (principal)

== ENCOUNTER 2019-01-20 07:57 | Outpatient (CLI) | payer MEDICARE, OTHER ==
[~2019-01-20] VITALS: Ht 162.6 cm; Wt 81.8 kg
[~2019-01-20 07:57] MED LIST changes: -NS 1,000 ML IV ONE; +NS 1,000 ML IV SCH; -SODIUM CHLORIDE 0.9% INJ 10 ML SYR IV SCH
[2019-01-20 08:00] VITALS: BP 110/60
[2019-01-20] MEDS ORDERED: SODIUM CHLORIDE 0.9% INJ 10 ML SYR IV SCH (09:00)
[2019-01-20 10:20] VITALS: BP 101/57
== END 2019-01-20 10:20 | disposition home or self-care (01) ==
LOC: M INFU 07:57
PROVIDERS: ATTEND Internal Medicine
DX: E86.0 Dehydration (principal); Z88.1 Allergy status to other antibiotic agents; Z91.041 Radiographic dye allergy status; Z91.040 Latex allergy status; Z88.5 Allergy status to narcotic agent

== ENCOUNTER 2019-01-23 07:24 | Outpatient (CLI) | payer MEDICARE, OTHER ==
[~2019-01-23] VITALS: Ht 162.6 cm; Wt 81.8 kg
[2019-01-23 07:36] VITALS: BP 125/83
[2019-01-23] MEDS ORDERED: SODIUM CHLORIDE 0.9% INJ 10 ML SYR IV SCH (09:00)
[2019-01-23 09:23] VITALS: BP 115/62
== END 2019-01-23 09:20 | disposition home or self-care (01) ==
LOC: M INFU 07:24
PROVIDERS: ATTEND Internal Medicine
DX: E86.0 Dehydration (principal); Z88.1 Allergy status to other antibiotic agents; Z91.041 Radiographic dye allergy status; Z91.040 Latex allergy status; Z88.5 Allergy status to narcotic agent

== ENCOUNTER 2019-01-27 08:07 | Outpatient (CLI) | payer MEDICARE, OTHER ==
[~2019-01-27] VITALS: Ht 162.6 cm; Wt 81.8 kg
[2019-01-27 08:15] VITALS: BP 118/61
[2019-01-27 08:53] LABS: BASO # 0.1 10^3/uL (0.0-0.2); BASO % 0.7 % (0.0-1.0); EOS # 0.1 10^3/uL (0.0-0.50); EOS % 0.6 % (0.0-3.0); HEMATOCRIT 36.3 % (36.0-47.0); HEMOGLOBIN 12.1 g/dl (12.0-15.5); LYMPH # 2.4 10^3/uL (1.5-4.5); LYMPH % 25.2 % (24.0-44.0); MEAN CORPUSCULAR HEMOGLOBIN 31.6 pg (27.0-33.0); MEAN CORPUSCULAR HGB CONC 33.3 g/dl (32.0-36.5); MEAN CORPUSCULAR VOLUME 94.8 fl (80.0-96.0); MONO # 0.5 10^3/uL (0.0-0.8); MONO % 5.3 % (0.0-5.0); NEUTROPHILS # 6.6 10^3/uL (1.8-7.7); NEUTROPHILS % 67.7 % (36.0-66.0); PLATELET COUNT, AUTOMATED 305 10^3/uL (150-450); RED BLOOD COUNT 3.83 10^6/uL (4.00-5.40); WHITE BLOOD COUNT 9.7 10^3/uL (4.0-10.0)
[2019-01-27] MEDS ORDERED: SODIUM CHLORIDE 0.9% INJ 10 ML SYR IV SCH (09:00)
[2019-01-27 09:13] LABS: ERYTHROCYTE SEDIMENTATION RATE 19 mm/hr (0-20)
[2019-01-27 09:22] LABS: ALT/SGPT 27 U/L (12-78); BILIRUBIN,TOTAL 0.5 MG/DL (0.2-1.0); BLOOD UREA NITROGEN 15 MG/DL (7-18); CALCIUM LEVEL 8.9 MG/DL (8.5-10.1); CARBON DIOXIDE LEVEL 23 MEQ/L (21-32); CHLORIDE LEVEL 107 MEQ/L (98-107); CHOLESTEROL LEVEL 213 MG/DL (<200); CHOLESTEROL RISK RATIO 3.872 (<5); CREATININE FOR GFR 0.71 MG/DL (0.55-1.30); GLOMERULAR FILTRATION RATE > 60.0 (>60); GLUCOSE, FASTING 106 MG/DL (70-100); HDL CHOLESTEROL 55 MG/DL (>40); LDL CHOLESTEROL 115 MG/DL (<100); LIPASE 157 U/L (73-393); NON-HDL-C 158 MG/DL; POTASSIUM SERUM 4.1 MEQ/L (3.5-5.1); SODIUM LEVEL 138 MEQ/L (136-145); TOTAL PROTEIN 7.5 GM/DL (6.4-8.2); TRIGLYCERIDES LEVEL 213 MG/DL (<150)
[2019-01-27 10:30] VITALS: BP 102/55
== END 2019-01-27 10:30 | disposition home or self-care (01) ==
LOC: M INFU 08:07
PROVIDERS: ATTEND Internal Medicine Gastroenterology
DX: E86.0 Dehydration (principal); Z88.1 Allergy status to other antibiotic agents; Z91.040 Latex allergy status; Z91.041 Radiographic dye allergy status; Z88.5 Allergy status to narcotic agent; E78.5 Hyperlipidemia, unspecified

== ENCOUNTER 2019-01-30 07:42 | Outpatient (CLI) | payer MEDICARE, OTHER ==
[~2019-01-30] VITALS: Ht 162.6 cm; Wt 81.8 kg
[~2019-01-30 07:42] MED LIST changes: -NS 1,000 ML IV SCH; +SODIUM CHLORIDE 0.9% INJ 10 ML SYR IV PRN
[2019-01-30 07:49] VITALS: BP 115/73
[2019-01-30 08:08] VITALS: BP 110/66
[2019-01-30] MEDS: NS 1,000 ML IV SCH ×2 (08:09→08:10)
[2019-01-30] MEDS ORDERED: SODIUM CHLORIDE 0.9% INJ 10 ML SYR IV SCH (09:00)
[2019-01-30 09:46] VITALS: BP 112/67
== END 2019-01-30 09:45 | disposition home or self-care (01) ==
LOC: M INFU 07:42
PROVIDERS: ATTEND Internal Medicine Gastroenterology
DX: E86.0 Dehydration (principal); Z88.1 Allergy status to other antibiotic agents; Z88.5 Allergy status to narcotic agent; Z91.040 Latex allergy status; Z91.041 Radiographic dye allergy status

== ENCOUNTER 2019-02-03 08:04 | Outpatient (CLI) | payer MEDICARE, OTHER ==
[~2019-02-03] VITALS: Ht 162.6 cm; Wt 81.8 kg
[~2019-02-03 08:04] MED LIST changes: +NS 1,000 ML IV SCH; -SODIUM CHLORIDE 0.9% INJ 10 ML SYR IV PRN
[2019-02-03 08:19] VITALS: BP 127/71
[2019-02-03] MEDS ORDERED: SODIUM CHLORIDE 0.9% INJ 10 ML SYR IV SCH (09:00)
[2019-02-03 10:10] VITALS: BP 100/54
== END 2019-02-03 10:10 | disposition home or self-care (01) ==
LOC: M INFU 08:04
PROVIDERS: ATTEND Internal Medicine Gastroenterology
DX: E86.0 Dehydration (principal); Z88.8 Allergy status to other drugs, medicaments and biological substances; Z88.1 Allergy status to other antibiotic agents; Z91.041 Radiographic dye allergy status; Z91.040 Latex allergy status

== ENCOUNTER 2019-02-06 07:35 | Outpatient (CLI) | payer MEDICARE, OTHER ==
[~2019-02-06] VITALS: Ht 162.6 cm; Wt 81.8 kg
[2019-02-06 07:40] VITALS: BP 126/83
[2019-02-06] MEDS ORDERED: SODIUM CHLORIDE 0.9% INJ 10 ML SYR IV SCH (09:00)
[2019-02-06 09:40] VITALS: BP 110/59
== END 2019-02-06 09:40 | disposition home or self-care (01) ==
LOC: M INFU 07:35
PROVIDERS: ATTEND Internal Medicine Gastroenterology
DX: E86.0 Dehydration (principal); Z88.1 Allergy status to other antibiotic agents; Z88.5 Allergy status to narcotic agent; Z91.041 Radiographic dye allergy status; Z91.040 Latex allergy status

== ENCOUNTER 2019-02-10 08:22 | Outpatient (CLI) | payer MEDICARE, OTHER ==
[~2019-02-10] VITALS: Ht 160 cm; Wt 81.8 kg
[~2019-02-10 08:22] MED LIST changes: +NS 1,000 ML IV ONE; -NS 1,000 ML IV SCH
[2019-02-10 08:30] VITALS: BP 124/66
[2019-02-10] MEDS ORDERED: SODIUM CHLORIDE 0.9% INJ 10 ML SYR IV SCH (09:00)
[2019-02-10 10:10] VITALS: BP 117/68
== END 2019-02-10 10:20 | disposition home or self-care (01) ==
LOC: M INFU 08:22
PROVIDERS: ATTEND Internal Medicine Gastroenterology
DX: E86.0 Dehydration (principal); Z88.1 Allergy status to other antibiotic agents; Z88.5 Allergy status to narcotic agent; Z91.041 Radiographic dye allergy status; Z91.040 Latex allergy status

== ENCOUNTER 2019-02-13 07:37 | Outpatient (CLI) | payer MEDICARE, OTHER ==
[~2019-02-13] VITALS: Ht 162.6 cm; Wt 81.8 kg
[~2019-02-13 07:37] MED LIST changes: -NS 1,000 ML IV ONE
[2019-02-13] MEDS ORDERED: NS 1,000 ML IV SCH (07:45)
[2019-02-13 07:55] VITALS: BP 116/67
[2019-02-13] MEDS ORDERED: SODIUM CHLORIDE 0.9% INJ 10 ML SYR IV SCH (09:00)
[2019-02-13 09:25] VITALS: BP 94/53
== END 2019-02-13 09:35 | disposition home or self-care (01) ==
LOC: M INFU 07:37
PROVIDERS: ATTEND Internal Medicine Gastroenterology
DX: E86.0 Dehydration (principal); Z88.1 Allergy status to other antibiotic agents; Z88.5 Allergy status to narcotic agent; Z91.041 Radiographic dye allergy status; Z91.040 Latex allergy status

== ENCOUNTER 2019-02-17 07:39 | Outpatient (CLI) | payer MEDICARE, OTHER ==
[~2019-02-17] VITALS: Ht 162.6 cm; Wt 81.6 kg
[~2019-02-17 07:39] MED LIST changes: +NS 1,000 ML IV ONE
[2019-02-17 07:40] VITALS: BP 112/68
[2019-02-17 08:40] LABS: BASO # 0.1 10^3/uL (0.0-0.2); BASO % 0.4 % (0.0-1.0); EOS # 0.2 10^3/uL (0.0-0.50); EOS % 1.3 % (0.0-3.0); HEMATOCRIT 37.8 % (36.0-47.0); HEMOGLOBIN 12.6 g/dl (12.0-15.5); LYMPH # 3.1 10^3/uL (1.5-4.5); LYMPH % 22.5 % (24.0-44.0); MEAN CORPUSCULAR HEMOGLOBIN 30.7 pg (27.0-33.0); MEAN CORPUSCULAR HGB CONC 33.3 g/dl (32.0-36.5); MONO # 0.8 10^3/uL (0.0-0.8); NEUTROPHILS # 9.6 10^3/uL (1.8-7.7); NEUTROPHILS % 69.2 % (36.0-66.0); PLATELET COUNT, AUTOMATED 313 10^3/uL (150-450); RED BLOOD COUNT 4.11 10^6/uL (4.00-5.40); WHITE BLOOD COUNT 13.9 10^3/uL (4.0-10.0)
[2019-02-17] MEDS ORDERED: SODIUM CHLORIDE 0.9% INJ 10 ML SYR IV SCH (09:00)
[2019-02-17 09:14] LABS: ALBUMIN 4.1 GM/DL (3.2-5.2); ALT/SGPT 23 U/L (12-78); BILIRUBIN,TOTAL 0.4 MG/DL (0.2-1.0); BLOOD UREA NITROGEN 13 MG/DL (7-18); CARBON DIOXIDE LEVEL 26 MEQ/L (21-32); CHLORIDE LEVEL 107 MEQ/L (98-107); CHOLESTEROL LEVEL 216 MG/DL (<200); CHOLESTEROL RISK RATIO 3.789 (<5); CREATININE FOR GFR 0.75 MG/DL (0.55-1.30); GLOMERULAR FILTRATION RATE > 60.0 (>60); GLUCOSE, FASTING 101 MG/DL (70-100); HDL CHOLESTEROL 57 MG/DL (>40); LDL CHOLESTEROL 127 MG/DL (<100); LIPASE 65 U/L (73-393); NON-HDL-C 159 MG/DL; POTASSIUM SERUM 4.1 MEQ/L (3.5-5.1); SODIUM LEVEL 137 MEQ/L (136-145); TOTAL PROTEIN 7.5 GM/DL (6.4-8.2); TRIGLYCERIDES LEVEL 162 MG/DL (<150)
[2019-02-17 09:40] VITALS: BP 120/61
[2019-02-17 11:21] LABS: HEMOGLOBIN A1c 5.8 %
== END 2019-02-17 09:30 | disposition home or self-care (01) ==
LOC: M INFU 07:39
PROVIDERS: ATTEND Internal Medicine Gastroenterology
DX: E86.0 Dehydration (principal); Z88.1 Allergy status to other antibiotic agents; Z88.5 Allergy status to narcotic agent; Z91.041 Radiographic dye allergy status; Z91.040 Latex allergy status; E78.5 Hyperlipidemia, unspecified

== ENCOUNTER 2019-02-19 08:14 | Outpatient (CLI) | payer MEDICARE, OTHER ==
[~2019-02-19] VITALS: Ht 162.6 cm; Wt 81.8 kg
[~2019-02-19 08:14] MED LIST changes: -NS 1,000 ML IV ONE
[2019-02-19 08:25] VITALS: BP 122/75
[2019-02-19] MEDS: NS 1,000 ML IV SCH ×3 (08:26→10:13)
[2019-02-19] MEDS ORDERED: SODIUM CHLORIDE 0.9% INJ 10 ML SYR IV SCH (09:00)
[2019-02-19 10:15] VITALS: BP 123/63
== END 2019-02-19 10:15 | disposition home or self-care (01) ==
LOC: M INFU 08:14
PROVIDERS: ATTEND Internal Medicine Gastroenterology
DX: E86.0 Dehydration (principal)

== ENCOUNTER 2019-02-24 07:34 | Outpatient (CLI) | payer MEDICARE, OTHER ==
[~2019-02-24] VITALS: Ht 162.6 cm; Wt 81.8 kg
[~2019-02-24 07:34] MED LIST changes: +NS 1,000 ML IV SCH; +SODIUM CHLORIDE 0.9% INJ 10 ML SYR IV PRN
[2019-02-24 07:53] VITALS: BP 127/82
[2019-02-24] MEDS ORDERED: SODIUM CHLORIDE 0.9% INJ 10 ML SYR IV SCH (09:00)
[2019-02-24 09:30] VITALS: BP 118/65
== END 2019-02-24 09:30 | disposition home or self-care (01) ==
LOC: M INFU 07:34
PROVIDERS: ATTEND Internal Medicine Gastroenterology
DX: E86.0 Dehydration (principal)

== ENCOUNTER 2019-02-27 09:38 | Outpatient (CLI) | payer MEDICARE, OTHER ==
[~2019-02-27] VITALS: Ht 162.6 cm; Wt 81.8 kg
[~2019-02-27 09:38] MED LIST changes: -NS 1,000 ML IV SCH; -SODIUM CHLORIDE 0.9% INJ 10 ML SYR IV PRN
[2019-02-27 09:49] VITALS: BP 147/85
[2019-02-27] MEDS ORDERED: SODIUM CHLORIDE 0.9% INJ 10 ML SYR IV PRN (10:00)
[2019-02-27] MEDS ORDERED: NS 1,000 ML IV SCH (10:00)
[2019-02-27 11:17] VITALS: BP 138/88
[2019-02-28] MEDS ORDERED: SODIUM CHLORIDE 0.9% INJ 10 ML SYR IV SCH (09:00)
== END 2019-02-27 11:15 | disposition home or self-care (01) ==
LOC: M INFU 09:38
PROVIDERS: ATTEND Internal Medicine Gastroenterology
DX: E86.0 Dehydration (principal); Z88.1 Allergy status to other antibiotic agents; Z88.5 Allergy status to narcotic agent; Z91.040 Latex allergy status; Z91.041 Radiographic dye allergy status

== ENCOUNTER 2019-03-03 07:32 | Outpatient (CLI) | payer MEDICARE, OTHER ==
[~2019-03-03] VITALS: Ht 162.6 cm; Wt 81.8 kg
[~2019-03-03 07:32] MED LIST changes: +CLON0.5T2 PO; -CLON0.5T8 PO; -OMEP40CA2 PO; +OMEP40CA97 PO
[2019-03-03 07:44] VITALS: BP 136/78
[2019-03-03] MEDS ORDERED: NS 1,000 ML IV SCH (07:45)
[2019-03-03 08:48] LABS: HEMATOCRIT 37.9 % (36.0-47.0); HEMOGLOBIN 12.3 g/dl (12.0-15.5); MEAN CORPUSCULAR HEMOGLOBIN 31.6 pg (27.0-33.0); MEAN CORPUSCULAR HGB CONC 32.5 g/dl (32.0-36.5); MEAN CORPUSCULAR VOLUME 97.4 fl (80.0-96.0); PLATELET COUNT, AUTOMATED 314 10^3/uL (150-450); RED BLOOD COUNT 3.89 10^6/uL (4.00-5.40); WHITE BLOOD COUNT 11.2 10^3/uL (4.0-10.0)
[2019-03-03 08:55] LABS: CHOLESTEROL RISK RATIO 3.823 (<5)
[2019-03-03] MEDS ORDERED: SODIUM CHLORIDE 0.9% INJ 10 ML SYR IV SCH (09:00)
[2019-03-03 09:14] VITALS: BP 114/63
== END 2019-03-03 09:15 | disposition home or self-care (01) ==
LOC: M INFU 07:32
PROVIDERS: ATTEND Internal Medicine Gastroenterology
DX: E86.0 Dehydration (principal); R10.84 Generalized abdominal pain; K86.1 Other chronic pancreatitis; K51.80 Other ulcerative colitis without complications; Z88.1 Allergy status to other antibiotic agents; Z91.040 Latex allergy status; Z91.041 Radiographic dye allergy status; Z88.5 Allergy status to narcotic agent

== ENCOUNTER 2019-03-06 08:05 | Outpatient (CLI) | payer MEDICARE, OTHER ==
[~2019-03-06] VITALS: Ht 162.6 cm; Wt 81.8 kg
[~2019-03-06 08:05] MED LIST changes: +NS 1,000 ML IV SCH
[2019-03-06 08:09] VITALS: BP 127/69
[2019-03-06] MEDS ORDERED: SODIUM CHLORIDE 0.9% INJ 10 ML SYR IV SCH (09:00)
[2019-03-06 09:45] VITALS: BP 112/74
== END 2019-03-06 09:45 | disposition home or self-care (01) ==
LOC: M INFU 08:05
PROVIDERS: ATTEND Internal Medicine Gastroenterology
DX: E86.0 Dehydration (principal); Z88.1 Allergy status to other antibiotic agents; Z88.5 Allergy status to narcotic agent; Z91.040 Latex allergy status; Z91.041 Radiographic dye allergy status

== ENCOUNTER 2019-03-09 20:06 | Emergency (ER) | payer MEDICARE, OTHER ==
[~2019-03-09] VITALS: Ht 162.6 cm; Wt 84.1 kg
[~2019-03-09 20:06] MED LIST changes: -CLON0.5T2 PO; +CLON0.5T8 PO; -NS 1,000 ML IV SCH; +OMEP40CA2 PO; -OMEP40CA97 PO
[2019-03-09 20:10] VITALS: BP 118/77
== END 2019-03-10 01:16 | disposition left against medical advice (07) ==
LOC: M ED 20:06
DX: Z53.21 Procedure and treatment not carried out due to patient leaving prior to being seen by health care provider (principal)

== ENCOUNTER 2019-03-10 08:38 | Outpatient (CLI) | payer MEDICARE, OTHER ==
[~2019-03-10] VITALS: Ht 162.6 cm; Wt 81.8 kg
[2019-03-10 08:50] VITALS: BP 125/62
[2019-03-10] MEDS: NS 1,000 ML IV ONE (08:50)
[2019-03-10] MEDS: SODIUM CHLORIDE 0.9% INJ 10 ML SYR IV SCH (10:28)
[2019-03-10 10:40] VITALS: BP 112/59
== END 2019-03-10 10:40 | disposition home or self-care (01) ==
LOC: M INFU 08:38
PROVIDERS: ATTEND Internal Medicine Gastroenterology
DX: E86.0 Dehydration (principal); Z88.1 Allergy status to other antibiotic agents; Z91.041 Radiographic dye allergy status; Z91.040 Latex allergy status

== ENCOUNTER 2019-03-13 07:41 | Outpatient (CLI) | payer MEDICARE, OTHER ==
[~2019-03-13] VITALS: Ht 162.6 cm; Wt 81.8 kg
[~2019-03-13 07:41] MED LIST changes: +NS 1,000 ML IV ONE; +SODIUM CHLORIDE 0.9% INJ 10 ML SYR IV SCH
[2019-03-13 08:00] VITALS: BP 115/67
[2019-03-13 09:40] VITALS: BP 109/51
== END 2019-03-13 09:45 | disposition home or self-care (01) ==
LOC: M INFU 07:41
PROVIDERS: ATTEND Internal Medicine Gastroenterology
DX: E86.0 Dehydration (principal)

== ENCOUNTER 2019-03-17 07:43 | Outpatient (CLI) | payer MEDICARE, OTHER ==
[~2019-03-17] VITALS: Ht 162.6 cm; Wt 81.8 kg
[~2019-03-17 07:43] MED LIST changes: -NS 1,000 ML IV ONE; -SODIUM CHLORIDE 0.9% INJ 10 ML SYR IV SCH
[2019-03-17 07:50] VITALS: BP 90/51
[2019-03-17] MEDS: NS 1,000 ML IV SCH (08:20)
[2019-03-17] MEDS: SODIUM CHLORIDE 0.9% INJ 10 ML SYR IV SCH (09:32)
[2019-03-17 09:45] VITALS: BP 119/63
== END 2019-03-17 09:45 | disposition home or self-care (01) ==
LOC: M INFU 07:43
PROVIDERS: ATTEND Internal Medicine Gastroenterology
DX: E86.0 Dehydration (principal)

== ENCOUNTER 2019-03-20 07:24 | Outpatient (CLI) | payer MEDICARE, OTHER ==
[~2019-03-20] VITALS: Ht 162.6 cm; Wt 81.8 kg
[~2019-03-20 07:24] MED LIST changes: +NS 1,000 ML IV SCH
[2019-03-20 07:30] VITALS: BP 115/71
[2019-03-20 08:07] LABS: BASO # 0.1 10^3/uL (0.0-0.2); BASO % 0.6 % (0.0-1.0); EOS # 0.1 10^3/uL (0.0-0.50); HEMATOCRIT 43.1 % (36.0-47.0); HEMOGLOBIN 14.1 g/dl (12.0-15.5); LYMPH # 3.6 10^3/uL (1.5-4.5); MEAN CORPUSCULAR HGB CONC 32.7 g/dl (32.0-36.5); MEAN CORPUSCULAR VOLUME 94.7 fl (80.0-96.0); MONO # 0.6 10^3/uL (0.0-0.8); MONO % 5.7 % (0.0-5.0); NEUTROPHILS # 6.7 10^3/uL (1.8-7.7); NEUTROPHILS % 60.4 % (36.0-66.0); PLATELET COUNT, AUTOMATED 328 10^3/uL (150-450); RED BLOOD COUNT 4.55 10^6/uL (4.00-5.40); WHITE BLOOD COUNT 11.2 10^3/uL (4.0-10.0)
[2019-03-20 08:27] LABS: ERYTHROCYTE SEDIMENTATION RATE 16 mm/hr (0-20)
[2019-03-20 08:29] LABS: ALBUMIN 4.5 GM/DL (3.2-5.2); ALT/SGPT 27 U/L (12-78); BILIRUBIN,TOTAL 0.5 MG/DL (0.2-1.0); BLOOD UREA NITROGEN 14 MG/DL (7-18); CALCIUM LEVEL 9.4 MG/DL (8.5-10.1); CARBON DIOXIDE LEVEL 23 MEQ/L (21-32); CHLORIDE LEVEL 108 MEQ/L (98-107); CHOLESTEROL LEVEL 249 MG/DL (<200); CHOLESTEROL RISK RATIO 4.698 (<5); CREATININE FOR GFR 0.81 MG/DL (0.55-1.30); GLOMERULAR FILTRATION RATE > 60.0 (>60); GLUCOSE, FASTING 122 MG/DL (70-100); HDL CHOLESTEROL 53 MG/DL (>40); LDL CHOLESTEROL 123 MG/DL (<100); LIPASE 645 U/L (73-393); NON-HDL-C 196 MG/DL; SODIUM LEVEL 138 MEQ/L (136-145); TOTAL PROTEIN 8.3 GM/DL (6.4-8.2); TRIGLYCERIDES LEVEL 367 MG/DL (<150)
[2019-03-20] MEDS ORDERED: SODIUM CHLORIDE 0.9% INJ 10 ML SYR IV SCH (09:00)
[2019-03-20 09:30] VITALS: BP 106/60
== END 2019-03-20 09:30 | disposition home or self-care (01) ==
LOC: M INFU 07:24
PROVIDERS: ATTEND Internal Medicine Gastroenterology
DX: E86.0 Dehydration (principal); K51.80 Other ulcerative colitis without complications; K86.1 Other chronic pancreatitis; R10.84 Generalized abdominal pain; Z88.0 Allergy status to penicillin; Z88.1 Allergy status to other antibiotic agents; Z88.2 Allergy status to sulfonamides; Z91.041 Radiographic dye allergy status; Z91.040 Latex allergy status; Z88.5 Allergy status to narcotic agent

== ENCOUNTER 2019-03-24 07:36 | Outpatient (CLI) | payer MEDICARE, OTHER ==
[~2019-03-24] VITALS: Ht 162.6 cm; Wt 81.8 kg
[2019-03-24 07:40] VITALS: BP 100/62
[2019-03-24] MEDS ORDERED: SODIUM CHLORIDE 0.9% INJ 10 ML SYR IV SCH (09:00)
[2019-03-24 09:30] VITALS: BP 102/67
== END 2019-03-24 09:30 | disposition home or self-care (01) ==
LOC: M INFU 07:36
PROVIDERS: ATTEND Internal Medicine Gastroenterology
DX: E86.0 Dehydration (principal); Z88.0 Allergy status to penicillin; Z88.1 Allergy status to other antibiotic agents; Z88.2 Allergy status to sulfonamides; Z91.041 Radiographic dye allergy status; Z91.040 Latex allergy status; Z88.5 Allergy status to narcotic agent

== ENCOUNTER 2019-03-27 07:13 | Outpatient (CLI) | payer MEDICARE, OTHER ==
[~2019-03-27] VITALS: Ht 162.6 cm; Wt 81.1 kg
[2019-03-27 07:15] VITALS: BP 100/62
[2019-03-27] MEDS ORDERED: SODIUM CHLORIDE 0.9% INJ 10 ML SYR IV SCH (09:00)
[2019-03-27 09:10] VITALS: BP 100/53
== END 2019-03-27 09:10 | disposition home or self-care (01) ==
LOC: M INFU 07:13
PROVIDERS: ATTEND Internal Medicine Gastroenterology
DX: E86.0 Dehydration (principal); Z88.1 Allergy status to other antibiotic agents; Z88.5 Allergy status to narcotic agent; Z91.041 Radiographic dye allergy status; Z91.040 Latex allergy status

== ENCOUNTER 2019-03-31 07:48 | Outpatient (CLI) | payer MEDICARE, OTHER ==
[~2019-03-31] VITALS: Ht 162.6 cm; Wt 81.8 kg
[~2019-03-31 07:48] MED LIST changes: -NS 1,000 ML IV SCH
[2019-03-31 08:00] VITALS: BP 108/55
[2019-03-31] MEDS ORDERED: NS 1,000 ML IV SCH (08:15)
[2019-03-31] MEDS ORDERED: SODIUM CHLORIDE 0.9% INJ 10 ML SYR IV SCH (09:00)
[2019-03-31 10:15] VITALS: BP 102/51
== END 2019-03-31 10:05 | disposition home or self-care (01) ==
LOC: M INFU 07:48
PROVIDERS: ATTEND Internal Medicine Gastroenterology
DX: E86.0 Dehydration (principal); Z88.1 Allergy status to other antibiotic agents; Z88.5 Allergy status to narcotic agent; Z91.040 Latex allergy status; Z91.041 Radiographic dye allergy status

== ENCOUNTER 2019-04-03 08:23 | Outpatient (CLI) | payer MEDICARE, OTHER ==
[~2019-04-03] VITALS: Ht 162.6 cm; Wt 81.8 kg
[~2019-04-03 08:23] MED LIST changes: +CLON0.5T2 PO; -CLON0.5T8 PO; -OMEP40CA2 PO; +OMEP40CA97 PO
[2019-04-03 08:25] VITALS: BP 103/58
[2019-04-03] MEDS ORDERED: NS 1,000 ML IV SCH (08:30)
[2019-04-03] MEDS ORDERED: SODIUM CHLORIDE 0.9% INJ 10 ML SYR IV SCH (09:00)
[2019-04-03 10:10] VITALS: BP 111/54
== END 2019-04-03 10:15 | disposition home or self-care (01) ==
LOC: M INFU 08:23
PROVIDERS: ATTEND Internal Medicine Gastroenterology
DX: E86.0 Dehydration (principal); Z88.1 Allergy status to other antibiotic agents; Z91.041 Radiographic dye allergy status; Z91.040 Latex allergy status; Z88.5 Allergy status to narcotic agent

== ENCOUNTER 2019-04-07 07:43 | Outpatient (CLI) | payer MEDICARE, OTHER ==
[~2019-04-07] VITALS: Ht 162.6 cm; Wt 81.8 kg
[~2019-04-07 07:43] MED LIST changes: -CLON0.5T2 PO; +CLON0.5T8 PO; +NS 1,000 ML IV SCH; +OMEP40CA2 PO; -OMEP40CA97 PO
[2019-04-07 07:45] VITALS: BP 115/61
[2019-04-07 08:26] LABS: BASO # 0.1 10^3/uL (0.0-0.2); BASO % 0.6 % (0.0-1.0); EOS # 0.2 10^3/uL (0.0-0.50); EOS % 1.6 % (0.0-3.0); HEMATOCRIT 37.1 % (36.0-47.0); HEMOGLOBIN 12.2 g/dl (12.0-15.5); LYMPH # 3.9 10^3/uL (1.5-4.5); LYMPH % 36.9 % (24.0-44.0); MEAN CORPUSCULAR HEMOGLOBIN 31.9 pg (27.0-33.0); MEAN CORPUSCULAR HGB CONC 32.9 g/dl (32.0-36.5); MEAN CORPUSCULAR VOLUME 96.9 fl (80.0-96.0); MONO # 0.6 10^3/uL (0.0-0.8); MONO % 5.6 % (0.0-5.0); NEUTROPHILS # 5.8 10^3/uL (1.8-7.7); NEUTROPHILS % 54.8 % (36.0-66.0); PLATELET COUNT, AUTOMATED 256 10^3/uL (150-450); RED BLOOD COUNT 3.83 10^6/uL (4.00-5.40); WHITE BLOOD COUNT 10.6 10^3/uL (4.0-10.0)
[2019-04-07 08:54] LABS: ALBUMIN 3.6 GM/DL (3.2-5.2); ALT/SGPT 27 U/L (12-78); BILIRUBIN,TOTAL 0.2 MG/DL (0.2-1.0); BLOOD UREA NITROGEN 13 MG/DL (7-18); C REACTIVE PROTEIN QUANTITATIV < 0.30 MG/DL (0.00-0.30); CALCIUM LEVEL 8.5 MG/DL (8.5-10.1); CARBON DIOXIDE LEVEL 23 MEQ/L (21-32); CHLORIDE LEVEL 107 MEQ/L (98-107); CHOLESTEROL LEVEL 203 MG/DL (<200); CHOLESTEROL RISK RATIO 4.511 (<5); CREATININE FOR GFR 0.74 MG/DL (0.55-1.30); GLOMERULAR FILTRATION RATE > 60.0 (>60); GLUCOSE, FASTING 167 MG/DL (70-100); HDL CHOLESTEROL 45 MG/DL (>40); LDL CHOLESTEROL 83 MG/DL (<100); LIPASE 86 U/L (73-393); NON-HDL-C 158 MG/DL; SODIUM LEVEL 138 MEQ/L (136-145); TOTAL PROTEIN 6.7 GM/DL (6.4-8.2); TRIGLYCERIDES LEVEL 373 MG/DL (<150)
[2019-04-07] MEDS ORDERED: SODIUM CHLORIDE 0.9% INJ 10 ML SYR IV SCH (09:00)
[2019-04-07 09:08] LABS: ERYTHROCYTE SEDIMENTATION RATE 12 mm/hr (0-20)
[2019-04-07 09:45] VITALS: BP 102/55
== END 2019-04-07 09:50 | disposition home or self-care (01) ==
LOC: M INFU 07:43
PROVIDERS: ATTEND Internal Medicine Gastroenterology
DX: E86.0 Dehydration (principal); Z91.040 Latex allergy status; Z91.041 Radiographic dye allergy status; Z88.5 Allergy status to narcotic agent; Z88.1 Allergy status to other antibiotic agents; E78.5 Hyperlipidemia, unspecified

== ENCOUNTER 2019-04-10 07:40 | Outpatient (CLI) | payer MEDICARE, OTHER ==
[~2019-04-10] VITALS: Ht 162.6 cm; Wt 81.8 kg
[2019-04-10 08:13] VITALS: BP 114/59
[2019-04-10] MEDS ORDERED: SODIUM CHLORIDE 0.9% INJ 10 ML SYR IV SCH (09:00)
[2019-04-10 09:45] VITALS: BP 98/54
== END 2019-04-10 09:45 | disposition home or self-care (01) ==
LOC: M INFU 07:40
PROVIDERS: ATTEND Internal Medicine Gastroenterology
DX: E86.0 Dehydration (principal); Z88.1 Allergy status to other antibiotic agents; Z88.5 Allergy status to narcotic agent; Z91.040 Latex allergy status; Z91.041 Radiographic dye allergy status

== ENCOUNTER 2019-04-14 07:29 | Outpatient (CLI) | payer MEDICARE, OTHER ==
[~2019-04-14] VITALS: Ht 162.6 cm; Wt 81.8 kg
[~2019-04-14 07:29] MED LIST changes: -NS 1,000 ML IV SCH
[2019-04-14 07:35] VITALS: BP 121/60
[2019-04-14] MEDS ORDERED: NS 1,000 ML IV SCH (08:00)
[2019-04-14] MEDS ORDERED: SODIUM CHLORIDE 0.9% INJ 10 ML SYR IV SCH (09:00)
[2019-04-14 09:20] VITALS: BP 99/56
== END 2019-04-14 09:20 | disposition home or self-care (01) ==
LOC: M INFU 07:29
PROVIDERS: ATTEND Internal Medicine Gastroenterology
DX: E86.0 Dehydration (principal)

== ENCOUNTER 2019-04-17 07:32 | Outpatient (CLI) | payer MEDICARE, OTHER ==
[~2019-04-17] VITALS: Ht 162.6 cm; Wt 81.8 kg
[2019-04-17 07:58] VITALS: BP 117/73
[2019-04-17] MEDS ORDERED: NS 1,000 ML IV SCH (08:00)
[2019-04-17] MEDS ORDERED: SODIUM CHLORIDE 0.9% INJ 10 ML SYR IV SCH (09:00)
[2019-04-17 09:15] VITALS: BP 118/61
== END 2019-04-17 09:15 | disposition home or self-care (01) ==
LOC: M INFU 07:32
PROVIDERS: ATTEND Internal Medicine Gastroenterology
DX: E86.0 Dehydration (principal); Z88.1 Allergy status to other antibiotic agents; Z88.5 Allergy status to narcotic agent; Z91.040 Latex allergy status; Z91.041 Radiographic dye allergy status

== ENCOUNTER 2019-04-22 07:52 | Outpatient (CLI) | payer MEDICARE, OTHER ==
[~2019-04-22] VITALS: Ht 162.6 cm; Wt 81.8 kg
[~2019-04-22 07:52] MED LIST changes: +NS 1,000 ML IV SCH; +SODIUM CHLORIDE 0.9% INJ 10 ML SYR IV PRN
[2019-04-22 07:55] VITALS: BP 115/67
[2019-04-22 09:00] VITALS: BP 120/62
[2019-04-22] MEDS ORDERED: SODIUM CHLORIDE 0.9% INJ 10 ML SYR IV SCH ×2 (09:00)
== END 2019-04-22 09:00 | disposition home or self-care (01) ==
LOC: M INFU 07:52
PROVIDERS: ATTEND Internal Medicine Gastroenterology
DX: E86.0 Dehydration (principal); Z88.1 Allergy status to other antibiotic agents; Z88.5 Allergy status to narcotic agent; Z91.040 Latex allergy status; Z91.041 Radiographic dye allergy status

== ENCOUNTER 2019-04-24 07:48 | Outpatient (CLI) | payer MEDICARE, OTHER ==
[~2019-04-24] VITALS: Ht 162.6 cm; Wt 81.8 kg
[~2019-04-24 07:48] MED LIST changes: -NS 1,000 ML IV SCH; -SODIUM CHLORIDE 0.9% INJ 10 ML SYR IV PRN
[2019-04-24 08:00] VITALS: BP 110/66
[2019-04-24] MEDS ORDERED: NS 1,000 ML IV SCH (08:00)
[2019-04-24 08:42] LABS: BASO # 0.1 10^3/uL (0.0-0.2); BASO % 0.7 % (0.0-1.0); EOS # 0.2 10^3/uL (0.0-0.5); EOS % 1.5 % (0.0-3.0); HEMATOCRIT 36.2 % (36.0-47.0); HEMOGLOBIN 12.1 g/dl (12.0-15.5); LYMPH # 3.8 10^3/uL (1.5-5.0); LYMPH % 35.6 % (24.0-44.0); MEAN CORPUSCULAR HEMOGLOBIN 31.7 pg (27.0-33.0); MEAN CORPUSCULAR HGB CONC 33.4 g/dl (32.0-36.5); MEAN CORPUSCULAR VOLUME 94.8 fl (80.0-96.0); MONO # 0.9 10^3/uL (0.0-0.8); NEUTROPHILS # 5.8 10^3/uL (1.5-8.5); NEUTROPHILS % 53.7 % (36.0-66.0); PLATELET COUNT, AUTOMATED 317 10^3/uL (150-450); RED BLOOD COUNT 3.82 10^6/uL (4.00-5.40); WHITE BLOOD COUNT 10.7 10^3/uL (4.0-10.0)
[2019-04-24] MEDS ORDERED: SODIUM CHLORIDE 0.9% INJ 10 ML SYR IV SCH (09:00)
[2019-04-24 09:15] LABS: ALBUMIN 3.7 GM/DL (3.2-5.2); ALT/SGPT 26 U/L (12-78); BILIRUBIN,TOTAL 0.3 MG/DL (0.2-1.0); BLOOD UREA NITROGEN 15 MG/DL (7-18); C REACTIVE PROTEIN QUANTITATIV < 0.30 MG/DL (0.00-0.30); CALCIUM LEVEL 8.6 MG/DL (8.5-10.1); CARBON DIOXIDE LEVEL 25 MEQ/L (21-32); CHLORIDE LEVEL 109 MEQ/L (98-107); CHOLESTEROL LEVEL 212 MG/DL (<200); CHOLESTEROL RISK RATIO 5.047 (<5); GLOMERULAR FILTRATION RATE > 60.0 (>60); GLUCOSE, FASTING 111 MG/DL (70-100); HDL CHOLESTEROL 42 MG/DL (>40); LDL CHOLESTEROL 129 MG/DL (<100); LIPASE 83 U/L (73-393); NON-HDL-C 170 MG/DL; POTASSIUM SERUM 4.3 MEQ/L (3.5-5.1); SODIUM LEVEL 139 MEQ/L (136-145); TOTAL PROTEIN 6.9 GM/DL (6.4-8.2); TRIGLYCERIDES LEVEL 203 MG/DL (<150)
[2019-04-24 09:28] LABS: ERYTHROCYTE SEDIMENTATION RATE 16 mm/hr (0-20)
[2019-04-24 10:00] VITALS: BP 110/69
== END 2019-04-24 10:00 | disposition home or self-care (01) ==
LOC: M INFU 07:48
PROVIDERS: ATTEND Internal Medicine Gastroenterology
DX: E86.0 Dehydration (principal); R10.84 Generalized abdominal pain; K86.1 Other chronic pancreatitis; K51.80 Other ulcerative colitis without complications; Z88.1 Allergy status to other antibiotic agents; Z88.5 Allergy status to narcotic agent; Z91.040 Latex allergy status; Z91.041 Radiographic dye allergy status

== ENCOUNTER 2019-04-28 07:43 | Outpatient (CLI) | payer MEDICARE, OTHER ==
[~2019-04-28] VITALS: Ht 162.6 cm; Wt 81.8 kg
[2019-04-28 07:45] VITALS: BP 104/62
[2019-04-28] MEDS ORDERED: NS 1,000 ML IV SCH (08:30)
[2019-04-28] MEDS ORDERED: SODIUM CHLORIDE 0.9% INJ 10 ML SYR IV SCH (09:00)
[2019-04-28 09:45] VITALS: BP 106/55
== END 2019-04-28 09:45 | disposition home or self-care (01) ==
LOC: M INFU 07:43
PROVIDERS: ATTEND Internal Medicine Gastroenterology
DX: E86.0 Dehydration (principal); Z88.1 Allergy status to other antibiotic agents; Z88.5 Allergy status to narcotic agent; Z91.040 Latex allergy status; Z91.041 Radiographic dye allergy status

== ENCOUNTER 2019-05-01 07:42 | Outpatient (CLI) | payer MEDICARE, OTHER ==
[~2019-05-01] VITALS: Ht 162.6 cm; Wt 81.8 kg
[2019-05-01 07:45] VITALS: BP 119/74
[2019-05-01] MEDS ORDERED: NS 1,000 ML IV SCH (08:00)
[2019-05-01] MEDS ORDERED: SODIUM CHLORIDE 0.9% INJ 10 ML SYR IV SCH (09:00)
[2019-05-01 10:15] VITALS: BP 128/69
== END 2019-05-01 10:10 ==
LOC: M INFU 07:42
PROVIDERS: ATTEND Internal Medicine Gastroenterology
DX: E86.0 Dehydration (principal); Z88.1 Allergy status to other antibiotic agents; Z88.5 Allergy status to narcotic agent; Z91.040 Latex allergy status; Z91.041 Radiographic dye allergy status

== ENCOUNTER 2019-05-08 07:38 | Outpatient (CLI) | payer MEDICARE, OTHER ==
[~2019-05-08] VITALS: Ht 162.6 cm; Wt 81.8 kg
[~2019-05-08 07:38] MED LIST changes: +NS 1,000 ML IV ONE; +SODIUM CHLORIDE 0.9% INJ 10 ML SYR IV SCH
[2019-05-08 07:40] VITALS: BP 106/63
[2019-05-08 09:50] VITALS: BP 109/59
[2019-05-09] MEDS ORDERED: PANT20TA2 PO (10:12)
[2019-05-09] MEDS ORDERED: OXYC10TA3 PO (10:12)
[2019-05-09] MEDS ORDERED: PSEU30TA85 PO (11:45)
[2019-05-09] MEDS ORDERED: MUCI600T31 PO (11:45)
== END 2019-05-08 09:50 | disposition home or self-care (01) ==
LOC: M INFU 07:38
PROVIDERS: ATTEND Internal Medicine Gastroenterology
DX: E86.0 Dehydration (principal); Z88.0 Allergy status to penicillin; Z88.1 Allergy status to other antibiotic agents; Z88.2 Allergy status to sulfonamides; Z91.041 Radiographic dye allergy status; Z91.040 Latex allergy status; Z88.5 Allergy status to narcotic agent

== ENCOUNTER 2019-05-09 09:52 | Inpatient (IN) | payer MEDICARE, OTHER ==
[2019-05-09] VITALS (8 sets, daily range): BP systolic 108–122; BP diastolic 67–78
[~2019-05-09] VITALS: Ht 162.6 cm; Wt 84.4 kg
[2019-05-09] MEDS: ENOXAPARIN 40 MG/0.4 ML SYRINGE (J1650) SC SCH ×2 (09:00→13:46)
[~2019-05-09 09:52] MED LIST changes: -NS 1,000 ML IV ONE; -SODIUM CHLORIDE 0.9% INJ 10 ML SYR IV SCH
[2019-05-09] MEDS ORDERED: OXYC10TA3 PO (10:12)
[2019-05-09] MEDS ORDERED: PANT20TA2 PO (10:12)
[2019-05-09 10:45] LABS: BASO # 0.1 10^3/uL (0.0-0.2); BASO % 0.3 % (0.0-1.0); EOS # 0.1 10^3/uL (0.0-0.5); EOS % 0.4 % (0.0-3.0); HEMATOCRIT 38.1 % (36.0-47.0); HEMOGLOBIN 12.6 g/dl (12.0-15.5); LYMPH # 3.4 10^3/uL (1.5-5.0); LYMPH % 15.5 % (24.0-44.0); MEAN CORPUSCULAR HEMOGLOBIN 30.7 pg (27.0-33.0); MEAN CORPUSCULAR HGB CONC 33.1 g/dl (32.0-36.5); MEAN CORPUSCULAR VOLUME 92.7 fl (80.0-96.0); MONO # 0.7 10^3/uL (0.0-0.8); MONO % 3.2 % (0.0-5.0); NEUTROPHILS # 17.2 10^3/uL (1.5-8.5); PLATELET COUNT, AUTOMATED 355 10^3/uL (150-450); RED BLOOD COUNT 4.11 10^6/uL (4.00-5.40); WHITE BLOOD COUNT 21.6 10^3/uL (4.0-10.0)
[2019-05-09 11:06] LABS: BLOOD UREA NITROGEN 11 MG/DL (7-18); CALCIUM LEVEL 8.9 MG/DL (8.5-10.1); CARBON DIOXIDE LEVEL 21 MEQ/L (21-32); CHLORIDE LEVEL 106 MEQ/L (98-107); CREATININE FOR GFR 0.79 MG/DL (0.55-1.30); GLOMERULAR FILTRATION RATE > 60.0 (>60); GLUCOSE, FASTING 240 MG/DL (70-100); POTASSIUM SERUM 3.9 MEQ/L (3.5-5.1); SODIUM LEVEL 137 MEQ/L (136-145)
[2019-05-09] MEDS ORDERED: NS 1,000 ML IV SCH (11:11)
[2019-05-09] MEDS ORDERED: ACETAMINOPHEN TAB 650MG DOSE (2X325MG) PO PRN (11:30)
[2019-05-09] MEDS ORDERED: MUCI600T31 PO (11:45)
[2019-05-09] MEDS ORDERED: PSEU30TA85 PO (11:45)
--- NOTE | 2019-05-09 11:50 | REP ---
CHEST, TWO VIEWS: COMPARISON: 08/10/2018. There is a right central venous catheter with the tip in the superior vena cava. There is no acute infiltrate. The heart is normal in size. The visualized osseous structures are intact. Electronically Signed by Evan Beck MD 05/09/2019 06:44 P
[2019-05-09] MEDS ORDERED: VANCOMYCIN HCL 1,000 MG, VIAL MATE ADAPTER 1 EACH in D5W 250 ML IV ONE ×2 (12:00→14:00)
[2019-05-09] MEDS ORDERED: ceFAZolin SOD 1 GM in D5W MINI-BAG PLUS 50 ML IV ONE (12:00)
[2019-05-09] MEDS ORDERED: fentaNYL 100 MCG/2 ML INJECTION (J3010) IV PRN (13:15)
[2019-05-09] MEDS ORDERED: ONDANSETRON 4 MG TAB (S0181) PO PRN (13:15)
[2019-05-09] MEDS: ATORVASTATIN 20 MG TAB PO SCH (13:44)
[2019-05-09] MEDS: PANTOPRAZOLE 20 MG TAB PO SCH (13:44)
[2019-05-09] MEDS: guaiFENesin ER 600 MG TAB PO PRN (13:45)
[2019-05-09] MEDS: PERCOCET 5MG/325MG TAB PO PRN ×2 (13:46→18:45)
--- NOTE | 2019-05-09 14:13 | CR.PDOC ---
General Date of Consultation: May 09, 2019 Attending Physician: REGAN COLE MD Consultation REASON FOR CONSULTATION/CHIEF COMPLAINT: "My port is infected." HISTORY OF PRESENT ILLNESS: Ms Morris is a 39yo patient with a longstanding history of multiple port placements and removals for IV fluid hydration, now with cellu litis and suspected bacteremia. She says they used the port for an infusion yesterday, and there was no trouble, but then overnight the area over the port became increasingly red tender and swollen. She says she has had a cough and respiratory infection for 2 weeks that has had trouble clearing, and she is worried that may be resulted in her port infection. I discussed with her that I was consulted for port removal. Risks, benefits and alternatives were explained to the patient and she is agreeable to proceed. Consent obtained. ALLERGIES: Please see below. HOME MEDICATIONS: Please see below. PAST MEDICAL HISTORY: 1. Ulcerative colitis. 2. H/o pancreatitis. 3. Anxiety/depression 4. H/o nephrolithiasis PAST SURGICAL HISTORY: 1. Colectomy 2. Port placements and removals by Dr Goldsmith 3. Laminectomy FAMILY HISTORY: Lung cancer, pancreatic cancer, Histiocytosis SOCIAL HISTORY: Former smoker, denies ETOH/illicit drug use REVIEW OF SYSTEMS: CONSTITUTIONAL: +fatigue +fever HEENT: -dysphagia CARDIOVASCULAR: +palpitations -CP RESPIRATORY: -SOB +cough/respiratory infection GENITOURINARY: +kidney stones MUSCULOSKELETAL: -claudication GASTROINTESTINAL: +diarrhea SKIN: -rash NEUROLOGICAL: +ELIZALDE -seizures PSYCHIATRIC: +anxiety and depression ENDOCRINE: -DM HEMATOLOGIC/LYMPHATIC: -bleeding or clotting disorders ALLERGIC/IMMUNOLOGIC: +UC PHYSICAL EXAMINATION: VITAL SIGNS: Please see below. GENERAL APPEARANCE: medically stable HEENT: vision intact, TMI RESPIRATORY: CTA CARDIOVASCULAR: RRR ABDOMEN: soft mild TTP EXTREMITIES: +pulses NEUROLOGICAL: A&Ox3, MAEE PSYCHIATRIC: pleasant and cooperative LABORATORY DATA: Please see below. ASSESSMENT/PLAN: 1. Port removal, line holiday over the weekend, possible port replacement early next week depending on clinical status 2. IV antibiotics per primary team. Vital Signs/I&O Vital Signs Date Time Temp Pulse Resp B/P (MAP) Pulse Ox O2 Delivery O2 Flow Rate FiO2 05/09/19 13:46 19 05/09/19 12:40 98.8 65 111/64 (80) 96 Room Air Laboratory Data Labs 24H Laboratory Tests 2 05/09/19 10:28: Immature Granulocyte % (Auto) 0.6, White Blood Count 21.6H, Red Blood Count 4.11, Hemoglobin 12.6, Hematocrit 38.1, Mean Corpuscular Volume 92.7, Mean Corpuscular Hemoglobin 30.7, Mean Corpuscular Hemoglobin Concent 33.1, Red Cell Distribution Width 12.8, Platelet Count 355, Neutrophils (%) (Auto) 80.0H, Lymphocytes (%) (Auto) 15.5L, Monocytes (%) (Auto) 3.2, Eosinophils (%) (Auto) 0.4, Basophils (%) (Auto) 0.3, Neutrophils # (Auto) 17.2H, Lymphocytes # (Auto) 3.4, Monocytes # (Auto) 0.7, Eosinophils # (Auto) 0.1, Basophils # (Auto) 0.1, Nucleated Red Blood Cells % (auto) 0.0, Anion Gap 10, Glomerular Filtration Rate > 60.0, Blood Urea Nitrogen 11, Creatinine 0.79, Sodium Level 137, Potassium Level 3.9, Chloride Level 106, Carbon Dioxide Level 21, Calcium Level 8.9 CBC/BMP Laboratory Tests 05/09/19 10:28 Red Blood Count 4.11, Mean Corpuscular Volume 92.7, Mean Corpuscular Hemoglobin 30.7, Mean Corpuscular Hemoglobin Concent 33.1, Red Cell Distribution Width 12.8, Neutrophils (%) (Auto) 80.0 H, Lymphocytes (%) (Auto) 15.5 L, Monocytes (%) (Auto) 3.2, Eosinophils (%) (Auto) 0.4, Basophils (%) (Auto) 0.3, Neutrophils # (Auto) 17.2 H, Lymphocytes # (Auto) 3.4, Monocytes # (Auto) 0.7, Eosinophils # (Auto) 0.1, Basophils # (Auto) 0.1, Calcium Level 8.9 Microbiology Microbiology 05/09/19 Blood Culture, Received Pending 05/09/19 Blood Culture, Received Pending Allergies Coded Allergies: Contrast Media (Verified Allergy, Severe, ANAPHYLACTIC SHOCK, 05/28/18) povidone-iodine (Unverified Allergy, Intermediate, CONTACT DERMITITIS, 11/15/18) ibuprofen (Unverified Allergy, Unknown, 11/15/18) latex (Unverified Allergy, Unknown, 11/15/18) lidocaine (Unverified Allergy, Unknown, 11/15/18) morphine (Unverified Adverse Reaction, Intermediate, HEADACHE , NAUSEA, 11/15/18) Home Medications Scheduled Atorvastatin Calcium (Atorvastatin Calcium) 20 Mg Tab, 20 MG PO DAILY, (Reported) Certolizumab Pegol (Cimzia) 200 Mg Kit, 200 MG SC Q2WK, (Reported) EVERY OTHER SUNDAY Desvenlafaxine Succinate (Pristiq) 100 Mg Tab, 100 MG PO DAILY, (Reported) Gemfibrozil (Gemfibrozil) 600 Mg Tab, 600 MG PO DAILY, (Reported) Pantoprazole Sodium (Pantoprazole Sodium) 20 Mg Tablet.dr, 1 TAB PO DAILY, (Rep orted) Scheduled PRN Clonazepam (Clonazepam) 1 Mg Tab, 1 MG PO TID PRN for ANXIETY, (Reported) Guaifenesin (Mucinex) 600 Mg Tab.er.12h, 600 MG PO BID PRN for CONGESTION, (Reported) Ondansetron HCl (Zofran) 4 Mg Tab, 4 MG PO Q6HP PRN for NAUSEA, (Reported) Oxycodone HCl/Acetaminophen (Oxycodone-Acetaminophen 10-325) 1 Each Tablet, 1 TAB PO QID PRN for PAIN, (Reported) MAY TAKE ONE TO TWO TABS Pseudoephedrine HCl (Sudafed) 30 Mg Tablet, 30 MG PO Q4H PRN for CONGESTION, (Reported) SENDY VALADEZ MD May 09, 2019 14:13
[2019-05-09] MEDS ORDERED: fentaNYL 100 MCG/2 ML INJECTION (J3010) As Ordered ONE (14:36)
[2019-05-09] MEDS ORDERED: ceFAZolin 1GM INJ (J0690 PER 500MG) As Ordered ONE (14:36)
[2019-05-09] MEDS ORDERED: MIDAZOLAM INJ 2 MG/2 ML VIAL (J2250) As Ordered ONE (14:36)
--- NOTE | 2019-05-09 15:47 | ROOPDOC ---
[facility] Report Of Operation Report of Operation DATE OF PROCEDURE: 05/09/19 PREPROCEDURE DIAGNOSES: Infected right Port-A-Cath POSTPROCEDURE DIAGNOSES: Same PROCEDURE: Removal right Port-A-Cath SURGEON: Sendy Wellington MD ANESTHESIA: Marcaine with epinephrine 13 mL local anesthesia. Moderate intravenous conscious sedation was supervised by Dr. Wellington. The patient was independently monitored by registered nurse assigned of department of radiology using automated blood pressure, EKG, and pulse oximetry. The detail conscious sedation record is permanently started in the hospital information sys tem. The following is a conscious sedation record: Fentanyl 50 g IV, Versed 1 mg IV, start time 14:55, stop time 15:39. INDICATION FOR PROCEDURE: Ms. curran is a very pleasant 39-year-old patient with a history of multiple Port-A-Cath placed for ongoing need of IV fluid hydration due to chronic history of dehydration secondary to ulcerative colitis. Today she was admitted from the emergency room with a white blood cell count 21, subjective fevers, and erythema and tenderness over her right chest port. Risks benefits and alternatives to removal of her right jugular port were explained to the patient she was agreeable to proceed. Informed consent was obtained. INTERPRETATION: Before removal of the port, and image was taken and a right jugular Port-A-Cath was seen with the tip freely mobile and the right atrium. After removal of the Port-A-Cath, another image was taken and no portion of the catheter was left behind, and the tip was intact. REPORT OF OPERATION: The patient was brought to the angiographic suite in stable condition. She was placed supine on the fluoroscopic table. Her right chest and neck were prepped and draped in a sterile fashion. Timeout was performed. Sedation was administered without complication. The patient tolerated this well. Local anesthesia was administered to the skin and subcutaneous tissue over the previous incision just caudal to the port on the right chest. We then anesthetized the pocket with local anesthesia as well. A knife was used to make a skin incision over the previous incision, and this was carried down through the subcutaneous tissue and scar tissue which sharp dissection. We then isolated the catheter within the incision in the port within the pocket. There is a great deal of scar tissue and a fibrous capsule around the port which was dissected away with blunt and sharp dissection. The port was carefully removed from the pocket after considerable amount of dissection, we then held pressure at the jugular access site, and the port and catheter were removed in as 1 unit. The entire catheter was intact including the tip. We then sent the port and catheter for microbiology. The pocket was copiously irrigated with Ancef irrigation. No purulence or signs of deep infection were present. Therefore, we elected to close the incision. It was closed in 2 deep layers with running Vicryl suture and the skin was closed with a running subcuticular Monocryl suture. Mastisol and Steri-Strips were placed the length of the incision for final dressing. The patient tolerated the procedure well was transferred back to the floor in stable condition after being monitored for short period. ESTIMATED BLOOD LOSS: Approximately 5 mL. COMPLICATIONS: None. PLAN: Our plan is to give the patient a line holiday over the weekend. She has a peripheral IV in her right upper extremity. Hopefully this will last the weekend. We will follow cultures from the port and catheter. Continue IV antibiotics per the primary team. If the patient develops signs of infection in her port pocket after removal, we can always open her incision at the bedside to allow for drainage. But I am hopeful with IV antibiotics this will not be necessary. We will follow with you over the weekend. Possible new port placement Sunday or Sunday. SENDY WELLINGTON MD May 09, 2019 15:47
[2019-05-09] MEDS: GEMFIBROZIL 600 MG TAB PO SCH (16:03)
[2019-05-09] MEDS: DESVENLAFAXINE ER 50 MG TABLET (PRISTIQ) PO SCH (16:03)
--- NOTE | 2019-05-09 17:49 | PHACANCOPD ---
PHARMACY VANCOMYCIN DOSING Pt Demographics Demographics Patient Age:39 , Weight:84.400 , Gender: female Adjusted Body Weight Date: 05/09/19, Adjusted Body Weight: Kg Events Past 24 Hours Events Past 24 Hours: YES: Elevation in WBC; NO: Dialysis, Diuretic Therapy, Change in CrCl, Fever, Pending Diagnostics, Pending Procedures, Other Vancomycin Vancomycin indication: SKIN AND SOFT TISSUE INFECTION Vancomycin Target Ranges: 10-20 mcg/ml Vancomycin Load Y/N: No Load Dose Date Time Vancomycin Load Dose: Date: Time: Vancomycin Dose Date: 05/09/19. Current Vancomycin Dose: [1GM Q12H] Intermittent Dosing?: No Labs Labs Item Value Date Time Red Blood Count 4.11 10^6/uL 05/09/19 1028 White Blood Count 21.6 10^3/uL H 05/09/19 1028 Glomerular Filtration Rate > 60.0 05/09/19 1028 Creatinine 0.79 MG/DL 05/09/19 1028 Vital Signs Label Value Date Time Patient Temperature 98.5 degrees F 05/09/19 1700 Temperature Source Oral 05/09/19 1700 Blood Pressure Assessment 108/72 (84) 05/09/19 1700 Micro Microbiology 05/09/19 Blood Culture, Received Pending 05/09/19 Blood Culture, Received Pending 05/09/19 Gram Stain, Received Pending 05/09/19 Abscess Culture, Received Pending 05/09/19 Anaerobic Culture, Received Pending Creatinine Clearance Date:05/09/19. Creatinine Clearance: [88.6 mL/MIN]. Assessment and Plan Maintaining Current Dose?: Yes Reason for dose change: No Dose Change Pharmacist Note Pharmacist Note Date: 05/09/19. Pharmacist note: Patient presented to [facility] for a cellulitis of a port. 1 gram of vancomycin was given in the emergency department. This patient has decent renal function and was started on 1 gram every 12 hours. A trough to determine steady state was scheduled prior to the fourth dose for 05/11/19 @ 0600. We will continue to monitor and make adjustments as needed. CARRIE LAMAR PHARMACY May 09, 2019 17:49
[2019-05-09] MEDS: VANCOMYCIN HCL 1,000 MG, VIAL MATE ADAPTER 1 EACH in D5W 250 ML IV SCH (19:48)
[2019-05-09] MEDS: MORPHINE 4 MG/ML 1ML VIAL/SYRINGE (J2270) IV PRN (20:13)
[2019-05-09] MEDS: ceFAZolin SOD 1 GM in D5W MINI-BAG PLUS 50 ML IV SCH (21:25)
[2019-05-09] MEDS: clonazePAM 1 MG TAB PO PRN (21:27)
[2019-05-10] MEDS: HYDROmorphone HCL 2 MG/ML 1ML VIAL (J1170) IV PRN ×4 (00:19→23:17)
[2019-05-10] MEDS: ceFAZolin SOD 1 GM in D5W MINI-BAG PLUS 50 ML IV SCH ×3 (04:55→19:44)
[2019-05-10 06:00] VITALS: BP 98/58
[2019-05-10 06:19] LABS: HEMATOCRIT 38.2 % (36.0-47.0); HEMOGLOBIN 12.6 g/dl (12.0-15.5); MEAN CORPUSCULAR VOLUME 94.1 fl (80.0-96.0); PLATELET COUNT, AUTOMATED 356 10^3/uL (150-450); RED BLOOD COUNT 4.06 10^6/uL (4.00-5.40); WHITE BLOOD COUNT 14.1 10^3/uL (4.0-10.0)
[2019-05-10] MEDS: VANCOMYCIN HCL 1,000 MG, VIAL MATE ADAPTER 1 EACH in D5W 250 ML IV SCH (06:30)
[2019-05-10 06:45] LABS: BLOOD UREA NITROGEN 11 MG/DL (7-18); CALCIUM LEVEL 8.6 MG/DL (8.5-10.1); CARBON DIOXIDE LEVEL 23 MEQ/L (21-32); CHLORIDE LEVEL 108 MEQ/L (98-107); CREATININE FOR GFR 0.69 MG/DL (0.55-1.30); GLOMERULAR FILTRATION RATE > 60.0 (>60); GLUCOSE, FASTING 97 MG/DL (70-100); POTASSIUM SERUM 3.9 MEQ/L (3.5-5.1); SODIUM LEVEL 138 MEQ/L (136-145)
[2019-05-10] MEDS ORDERED: SODIUM CHLORIDE 0.9% 1000ML IV ONE (07:00)
[2019-05-10] MEDS: ENOXAPARIN 40 MG/0.4 ML SYRINGE (J1650) SC SCH (09:00)
[2019-05-10 10:00] VITALS: BP 104/58
--- NOTE | 2019-05-10 10:19 | HPE ---
DATE OF ADMISSION: 05/09/2019 at approximately 1 p.m. CHIEF COMPLAINT: Anterior chest wall pain with redness over the site of her right anterior chest wall Port-a-Cath. HISTORY OF PRESENT ILLNESS: Mrs. Morris is a 39-year-old woman who has a history of ulcerative colitis. She is on Cimzia infusions every 2 weeks. Her last injection was yesterday. The patient has a Port-a-Cath in place secondary to avoid dehydration. She gets 2 liters of normal saline infused per week. She had gone to the infusion center yesterday and got her liter. Actually, did quite well. Did not have any issues at that time with her port. She then went home and was awoken with right anterior chest wall pain with increasing redness. This was unbearable, so she sought medical attention. In the emergency room (ER), she was found to be afebrile, but she did have a white count of 21,000. She remained hemodynamically stable. She was treated with intravenous (IV) cefazolin, as well as received a dose of vancomycin, and was admitted to the hospitalist service. Her allergies are to IV CONTRAST, which causes anaphylactic shock, as well as LATEX. She has an adverse reaction to morphine, as well as lidocaine. Her current home medications are the following: - atorvastatin 20 mg daily - Cimzia 200 mg every 2 weeks on - clonazepam 1 mg three times a day as needed for anxiety - desvenlafaxine 100 mg daily - gemfibrozil 600 mg daily - guaifenesin 600 mg extended release twice a day as needed for congestion - Zofran 4 mg every 6 hours as needed for nausea - oxycodone/acetaminophen 10/325 1-2 tablets every 6 hours as needed for pain - Protonix 20 mg daily - pseudoephedrine 30 mg every 4 hours as needed for congestion Her past medical history is notable for ulcerative colitis, hyperlipidemia, chronic abdominal pain, migraines, anxiety, depression. SURGICAL HISTORY: Is significant for a left anterior chest port, which was removed secondary to increasing pain in that part of her body. She subsequently had this right anterior chest port placed on 11/05/2018 under the care of Dr. Goldsmith and had had no issues with it up until today. The patient has history of ankle surgeries, back surgeries. She has had a total colectomy with partial hysterectomy, as well as cholecystectomy. SOCIAL HISTORY: The patient is . 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 She is an ex-smoker who quit 6 months ago. She does not use any alcohol, illicit drugs. She resides at home with her , Parker. She lists Parker as her surrogate medical decision-maker. She would like to be a FULL CODE. FAMILY HISTORY: Is notable for her maternal grandfather who from complications of pancreatitis and a paternal grandfather who from complications of metastatic lung cancer. REVIEW OF SYSTEMS: Positive for erythema, increased pain at the site of her anterior chest wall port. Aside from this, the patient has chronic abdominal and back pains issues. The remainder of systems review, the patient is otherwise negative. She denies having any fevers, rigors, or shaking chills. On examination this afternoon, the patient's temperature is 98.1, heart rate is 84 and regular, respirations are 17, blood pressure is 134/73, oxygen (O2) saturation is 99% on room air. General: The patient is alert and oriented times three. She appears to be in moderate distress associated with her anterior chest wall cellulitis, rule out line sepsis. Her head is atraumatic, normocephalic. Her pupils are symmetric and reactive to light. Oropharynx is clear without exudate, erythema, or thrush. Neck is supple. Lung sounds are present bilaterally without rales, wheezes, or rhonchi. Heart is S1, S2. No murmurs, rubs, or gallops. Abdomen is soft, nontender, nondistended. Extremities are without any significant cyanosis, clubbing, or edema. Skin examination: Demonstrates that the patient has localized erythema surrounding the port with tenderness to palpation. No fluctuance is appreciated. She has no evidence of lymphangitis. PERTINENT DIAGNOSTIC STUDIES: Chest x-ray done in the emergency room (ER) showed a right central venous catheter with tip in the superior vena cava (SVC). No evidence of a pneumothorax. White count is 21.6, hemoglobin was 12.6, hematocrit is 38.1, platelet count is 355. Sodium is 137, potassium is 3.9, chloride 106, bicarbonate is 21, anion gap is 10, BUN is 11, creatinine 0.79, glucose is 240, calcium is 8.9. Blood cultures times two have been drawn in the ER and are pending at this time in the laboratory. IMPRESSION: 1. Right anterior chest wall cellulitis, rule out line sepsis. The patient will be admitted to the inpatient status as her condition warrants a minimum of a 2-night hospital stay. She already has leukocytosis at 21,000 and is at risk for worsening sepsis. The patient has received cefazolin in the ER. I have requested IV vancomycin with pharmacy to dose. Will await the results of blood cultures. Will obtain an ultrasound of her anterior chest wall just to rule out any possible abscess and will consult vascular surgery to remove the port should there be any evidence of line sepsis. 2. Ulcerative colitis. The patient is stable at this time. She has already received Cimzia. No further treatment is warranted while she is in hospital. 3. Anxiety. She will be continued on her clonazepam three times a day as needed. 4. Hyperlipidemia. She will be continued on her atorvastatin and gemfibrozil. 5. Depression. She will be continued on her Pristiq. 6. Deep venous thrombosis (DVT) prophylaxis with history of ulcerative colitis (UC). The patient is at risk for DVT. She will be placed on Lovenox, as well as sequential compression devices (SCDs). The patient will be a FULL CODE. MTDD
[2019-05-10] MEDS: guaiFENesin ER 600 MG TAB PO PRN (10:43)
[2019-05-10] MEDS: GEMFIBROZIL 600 MG TAB PO SCH (10:43)
[2019-05-10] MEDS: PANTOPRAZOLE 20 MG TAB PO SCH (10:43)
[2019-05-10] MEDS: DESVENLAFAXINE ER 50 MG TABLET (PRISTIQ) PO SCH (10:45)
[2019-05-10] MEDS: PERCOCET 5MG/325MG TAB PO PRN ×2 (10:45→19:59)
[2019-05-10] MEDS: ATORVASTATIN 20 MG TAB PO SCH (10:45)
--- NOTE | 2019-05-10 10:52 | IPNPDOC ---
Date Seen The patient was seen on 05/10/19. Progress Note Ms Morris is a very pleasant patient who is POD #1 s/p removal RIJ infusaport secondary to pain and cellulitis right chest with subjective fevers and WBC 21. She is doing a bit better today, but still has erythema right chest with warmth, no induration, no fluctuance, no hematoma. We closed the incision with the hopes that with early removal of port and early treatment with antibiotics, we may st ave off a more substantial infection. We would like to minimize her scarring (the port was placed close to midline and close to her breast tissue, thus a larger scar would be less desirable cosmetically), however, if I feel she is at risk for ongoing infection/abscess, I will open the sutures and pack it instead. Today, it is improving and her WBC is down from 21 to 14, and she is AF and VSS, thus we will leave the incision closed for now. Plan: I have asked the nurse for periodic ice packs over the area to help with her discomfort, and the patient agrees this does help. Analgesia prn. Will follow. Plan for new port placement possibly Sunday or Sunday, depending on clinical status. VS, I&O, 24H, Fishbone Vital Signs/I&O Vital Signs Date Time Temp Pulse Resp B/P (MAP) Pulse Ox O2 Delivery O2 Flow Rate FiO2 05/10/19 10:00 98.8 86 16 104/58 (73) 97 05/09/19 12:40 Room Air I&O- Last 24 Hours up to 6 AM 05/10/19 05:59 Intake Total 1265 ml Balance 1265 ml Laboratory Data 24H LABS Laboratory Tests 2 05/10/19 05:28: Nucleated Red Blood Cells % (auto) 0.0, Anion Gap 7L, Glomerular Filtration Rate > 60.0, Blood Urea Nitrogen 11, Creatinine 0.69, Sodium Level 138, Potassium Level 3.9, Chloride Level 108H, Carbon Dioxide Level 23, Calcium Level 8.6 CBC/BMP Laboratory Tests 05/10/19 05:28 Red Blood Count 4.06, Mean Corpuscular Volume 94.1, Mean Corpuscular Hemoglobin 31.0, Mean Corpuscular Hemoglobin Concent 33.0, Red Cell Distribution Width 12.9, Calcium Level 8.6 Microbiology Microbiology 05/09/19 Blood Culture, Received Pending 05/09/19 Blood Culture, Received Pending 05/09/19 Gram Stain - Final, Resulted 05/09/19 Abscess Culture, Resulted Pending 05/09/19 Anaerobic Culture, Resulted Pending SENDY VALADEZ MD May 10, 2019 10:52
--- NOTE | 2019-05-10 13:58 | IPNPDOC ---
Subjective Date Seen The patient was seen on 05/10/19. Subjective Chief Complaint/HPI Afebrile. BP is sensitive to IV narcotics. She continues to have right ACW pain, the erythema appears less, and there is no drainage following port removal. Patient's home percocet 10/325 (1-2 tabs q4-6 hr) is not formulary. She states that IV morphine does not alleviate her chest wall pain and the dilaudid dose is too strong. She is amenable to decreasing the dilaudid dose ordered by the video game producer. Objective Physical Examination General Exam: Positive: Mild Distress; Negative: Alert, Cooperative, No Acute Distress, Moderate Distress, Severe Distress, Other Eye Exam: Negative: PERRLA, Conjunctiva & lids normal, EOMI, Sclera icteric, Ptosis, Other Eye Symptoms ENT Exam: Positive: Ext Auditory Canal Nml, Other ENT; Negative: Atraumatic, Mucous membr. moist/pink, Pharynx Normal, Tongue Midline, Pharyngeal Edema, Nares Patent, Pinna Normal Neck Exam: Negative: Supple, JVD, thyromegaly, +2 carotid pulse wo bruit, L ymphadenopathy, Other Chest Exam: Negative: Clear to auscultation, Normal air movement, Rales, Rhonchi, Wheezing, Diminished, Other Heart Exam: Positive: Rate Normal, Normal S1, Normal S2; Negative: Tachycardic, Bradycardic, Regular Rhythm, Irregular Rhythm, Gallops, Murmurs, Rubs, Other Abdomen Exam: Negative: Normal bowel sounds, BS Hyperactive, BS Hypoactive, Soft, Tenderness, Hepatospenomegaly, Mass, Hernia, Other Extremity Exam: Negative: Clubbing, Cyanosis, Edema, Normal pulses, Tenderness, Swelling, Other Skin Exam: Positive: Rash (erythema appears to be diminishing) Neuro Exam: Positive: Normal Speech Psych Exam: Positive: Mental status NL, Mood NL Assessment /Plan Assessment # Right anterior chest wall cellulitis overlying infusaport, rule out line sepsis. - s/p infusaport removal (05/09), appreciate vascular service assistance - operative note reviewed, no signs of deep infection, gram stain shows no organisms. - discontinue vanco, continue cefazolin day # 2 - Bcx no growth thus far - WBC decreased since admit 21 to 14k - decrease dilaudid to 1 mg - new port placement on sunday/sunday per vascular service # Ulcerative colitis - patient is relatively immunocompromised given recent use of Cimzia - UC symptoms are stable # Anxiety - controlled with clonazepam tid prn # Hyperlipidemia. - continue atorvastatin and gemfibrozil. # Depression. She will be - continue Pristiq. # Deep venous thrombosis (DVT) prophylaxis - Lovenox and SCDs Plan/VTE VTE Prophylaxis Ordered?: Yes VS, I&O, 24H, Fishbone Vital Signs/I&O Vital Signs Date Time Temp Pulse Resp B/P (MAP) Pulse Ox O2 Delivery O2 Flow Rate FiO2 05/10/19 11:15 16 05/10/19 10:00 98.8 86 104/58 (73) 97 05/09/19 12:40 Room Air I&O- Last 24 Hours up to 6 AM 05/10/19 06:00 Intake Total 1615 ml Balance 1615 ml Laboratory Data 24H LABS Laboratory Tests 2 05/10/19 05:28: Nucleated Red Blood Cells % (auto) 0.0, Anion Gap 7L, Glomerular Filtration Rate > 60.0, Blood Urea Nitrogen 11, Creatinine 0.69, Sodium Level 138, Potassium Level 3.9, Chloride Level 108H, Carbon Dioxide Level 23, Calcium Level 8.6 CBC/BMP Laboratory Tests 05/10/19 05:28 Red Blood Count 4.06, Mean Corpuscular Volume 94.1, Mean Corpuscular Hemoglobin 31.0, Mean Corpuscular Hemoglobin Concent 33.0, Red Cell Distribution Width 12.9, Calcium Level 8.6 Microbiology Microbiology 05/09/19 Blood Culture - Preliminary, Resulted No growth after 24 hours . All specim... 05/09/19 Blood Culture - Preliminary, Resulted No growth after 24 hours . All specim... 05/09/19 Gram Stain - Final, Resulted 05/09/19 Abscess Culture, Resulted Pending 05/09/19 Anaerobic Culture, Resulted Pending REGAN COLE MD May 10, 2019 13:58
[2019-05-10 14:00] VITALS: BP 102/61
[2019-05-10 22:00] VITALS: BP 111/67
[2019-05-10] MEDS: clonazePAM 1 MG TAB PO PRN (22:03)
[2019-05-11] MEDS: ceFAZolin SOD 1 GM in D5W MINI-BAG PLUS 50 ML IV SCH ×3 (04:38→20:08)
[2019-05-11 06:00] VITALS: BP 106/59
[2019-05-11 07:55] LABS: HEMATOCRIT 38.4 % (36.0-47.0); HEMOGLOBIN 12.7 g/dl (12.0-15.5); MEAN CORPUSCULAR HEMOGLOBIN 31.1 pg (27.0-33.0); MEAN CORPUSCULAR HGB CONC 33.1 g/dl (32.0-36.5); MEAN CORPUSCULAR VOLUME 93.9 fl (80.0-96.0); PLATELET COUNT, AUTOMATED 344 10^3/uL (150-450); RED BLOOD COUNT 4.09 10^6/uL (4.00-5.40); WHITE BLOOD COUNT 11.6 10^3/uL (4.0-10.0)
[2019-05-11] MEDS: ENOXAPARIN 40 MG/0.4 ML SYRINGE (J1650) SC SCH (09:00)
[2019-05-11] MEDS: DESVENLAFAXINE ER 50 MG TABLET (PRISTIQ) PO SCH (09:16)
[2019-05-11] MEDS: PANTOPRAZOLE 20 MG TAB PO SCH (09:17)
[2019-05-11] MEDS: GEMFIBROZIL 600 MG TAB PO SCH (09:17)
[2019-05-11] MEDS: ATORVASTATIN 20 MG TAB PO SCH (09:17)
--- NOTE | 2019-05-11 09:58 | IPNPDOC ---
Subjective Date Seen The patient was seen on 05/11/19. Subjective Chief Complaint/HPI Right ACW pain and erythema are improved this morning, reports only experiencing her chronic pains. afebrile. Objective Physical Examination General Exam: Positive: Mild Distress; Negative: Alert, Cooperative, No Acute Distress, Moderate Distress, Severe Distress, Other Eye Exam: Negative: PERRLA, Conjunctiva & lids normal, EOMI, Sclera icteric, Ptosis, Other Eye Symptoms ENT Exam: Positive: Ext Auditory Canal Nml, Other ENT; Negative: Atraumatic, Mucous membr. moist/pink, Pharynx Normal, Tongue Midline, Pharyngeal Edema, Nares Patent, Pinna Normal Neck Exam: Negative: Supple, JVD, thyromegaly, +2 carotid pulse wo bruit, Lymphadenopathy, Other Chest Exam: Negative: Clear to auscultation, Normal air movement, Rales, Rhonchi, Wheezing, Diminished, Other Heart Exam: Positive: Rate Normal, Normal S1, Normal S2; Negative: Tachycardic, Bradycardic, Regular Rhythm, Irregular Rhythm, Gallops, Murmurs, Rubs, Other Abdomen Exam: Negative: Normal bowel sounds, BS Hyperactive, BS Hypoactive, Soft, Tenderness, Hepatospenomegaly, Mass, Hernia, Other Extremity Exam: Negative: Clubbing, Cyanosis, Edema, Normal pulses, Tenderness, Swelling, Other Skin Exam: Positive: Rash (significantly less erythema, no fluctuance, no visible pus discharge) Neuro Exam: Positive: Normal Speech Psych Exam: Positive: Mental status NL, Mood NL Assessment /Plan Assessment # Right anterior chest wall cellulitis overlying infusaport, ruled in line seps is. - s/p infusaport removal (05/09) - operative note reviewed, no signs of deep infection, gram stain shows no organisms, but infusaport cx + staph epi - sensitive to cefazolin (day # 3), likely home once new port placed if b.cx remain negative. - Bcx no growth - WBC decreased since admit 21 to 11.6 since admission - dilaudid 1 mg IV for pain control - new port placement on sunday/sunday per vascular service # Ulcerative colitis - patient is relatively immunocompromised given recent use of Cimzia - UC symptoms are stable # Anxiety - controlled with clonazepam tid prn # Hyperlipidemia. - continue atorvastatin and gemfibrozil. # Depression. She will be - continue Pristiq. # Deep venous thrombosis (DVT) prophylaxis - Lovenox and SCDs Plan/VTE VTE Prophylaxis Ordered?: Yes VS, I&O, 24H, Fishbone Vital Signs/I&O Vital Signs Date Time Temp Pulse Resp B/P (MAP) Pulse Ox O2 Delivery O2 Flow Rate FiO2 05/11/19 06:00 97.4 56 18 106/59 (75) 94 05/09/19 12:40 Room Air I&O- Last 24 Hours up to 6 AM 05/11/19 06:00 Intake Total 1280 ml Output Total 380 ml Balance 900 ml Laboratory Data 24H LABS Laboratory Tests 2 05/11/19 07:43: Nucleated Red Blood Cells % (auto) 0.0 CBC/BMP Laboratory Tests 05/11/19 07:43 Red Blood Count 4.09, Mean Corpuscular Volume 93.9, Mean Corpuscular Hemoglobin 31.1, Mean Corpuscular Hemoglobin Concent 33.1, Red Cell Distribution Width 12.8 Microbiology Microbiology 05/09/19 Blood Culture - Preliminary, Resulted No growth after 24 hours . All specim... 05/09/19 Blood Culture - Preliminary, Resulted No growth after 24 hours . All specim... 05/09/19 Gram Stain - Final, Complete 05/09/19 Abscess Culture - Final, Complete Staphylococcus Epidermidis 05/09/19 Anaerobic Culture - Final, Complete REGAN COLE MD May 11, 2019 09:58
--- NOTE | 2019-05-11 11:34 | IPNPDOC ---
Date Seen The patient was seen on 05/11/19. Progress Note Ms Morris is a very pleasant 39yo patient POD #2 s/p RIJ port removal 2/2 cellulitis and port infection with staph epi. Blood cultures prelim neg x2. With IV antibiotics and port removal, her WBC is down again today 21 to 14, now to 11, and she remains AF, VSS. Her right chest erythema and tenderness continues to improve. No purulence or drainage. She prefers the new port also be placed on the ipsilateral side due to a lot of problems with her left chest port in the past. To be safe doing that, I would continue IV antibiotics another day or two prior to placing new port. This means possibly new port placement late Sunday or early Sunday. She says she cannot tolerate any oral antibiotics, so we will continue with current admission for IV antibiotics. We will follow closely. VS, I&O, 24H, Fishbone Vital Signs/I&O Vital Signs Date Time Temp Pulse Resp B/P (MAP) Pulse Ox O2 Delivery O2 Flow Rate FiO2 05/11/19 10:00 99.0 71 18 99 05/11/19 06:00 106/59 (75) 05/09/19 12:40 Room Air I&O- Last 24 Hours up to 6 AM 05/11/19 06:00 Intake Total 1280 ml Output Total 380 ml Balance 900 ml Laboratory Data 24H LABS Laboratory Tests 2 05/11/19 07:43: Nucleated Red Blood Cells % (auto) 0.0 CBC/BMP Laboratory Tests 05/11/19 07:43 Red Blood Count 4.09, Mean Corpuscular Volume 93.9, Mean Corpuscular Hemoglobin 31.1, Mean Corpuscular Hemoglobin Concent 33.1, Red Cell Distribution Width 12.8 Microbiology Microbiology 05/09/19 Blood Culture - Preliminary, Resulted No Growth after 48 hours. All Specime... 05/09/19 Blood Culture - Preliminary, Resulted No Growth after 48 hours. All Specime... 05/09/19 Gram Stain - Final, Complete 05/09/19 Abscess Culture - Final, Complete Staphylococcus Epidermidis 05/09/19 Anaerobic Culture - Final, Complete SENDY VALADEZ MD May 11, 2019 11:34
[2019-05-11] MEDS: PERCOCET 5MG/325MG TAB PO PRN ×2 (11:44→20:23)
[2019-05-11 14:00] VITALS: BP 115/67
[2019-05-11] MEDS: HYDROmorphone HCL 2 MG/ML 1ML VIAL (J1170) IV PRN ×2 (17:21→23:43)
[2019-05-11 18:00] VITALS: BP 122/77
[2019-05-11 22:00] VITALS: BP 106/61
[2019-05-12 02:00] VITALS: BP 108/64
[2019-05-12] MEDS: ceFAZolin SOD 1 GM in D5W MINI-BAG PLUS 50 ML IV SCH ×3 (04:06→20:37)
[2019-05-12 06:00] VITALS: BP 104/59
[2019-05-12 06:05] LABS: HEMATOCRIT 37.7 % (36.0-47.0); HEMOGLOBIN 12.6 g/dl (12.0-15.5); MEAN CORPUSCULAR HEMOGLOBIN 31.3 pg (27.0-33.0); MEAN CORPUSCULAR HGB CONC 33.4 g/dl (32.0-36.5); MEAN CORPUSCULAR VOLUME 93.8 fl (80.0-96.0); PLATELET COUNT, AUTOMATED 355 10^3/uL (150-450); RED BLOOD COUNT 4.02 10^6/uL (4.00-5.40); WHITE BLOOD COUNT 10.9 10^3/uL (4.0-10.0)
[2019-05-12] MEDS: PANTOPRAZOLE 20 MG TAB PO SCH (08:57)
[2019-05-12] MEDS: ATORVASTATIN 20 MG TAB PO SCH (08:58)
[2019-05-12] MEDS: ENOXAPARIN 40 MG/0.4 ML SYRINGE (J1650) SC SCH (08:58)
[2019-05-12] MEDS: DESVENLAFAXINE ER 50 MG TABLET (PRISTIQ) PO SCH (08:58)
[2019-05-12] MEDS: GEMFIBROZIL 600 MG TAB PO SCH (08:58)
[2019-05-12] MEDS: guaiFENesin ER 600 MG TAB PO PRN (09:07)
[2019-05-12] MEDS: PERCOCET 5MG/325MG TAB PO PRN ×2 (09:08→17:31)
[2019-05-12 10:00] VITALS: BP 100/65
[2019-05-12] MEDS: HYDROmorphone HCL 2 MG/ML 1ML VIAL (J1170) IV PRN ×2 (12:52→20:50)
[2019-05-12] MEDS ORDERED: NS 1,000 ML IV SCH (13:30)
--- NOTE | 2019-05-12 13:43 | IPNPDOC ---
Subjective Date Seen The patient was seen on 05/12/19. Subjective Chief Complaint/HPI Pain tolerable despite not being on her higher home dose of percocet. Remains afebrile overnight. Normally receives outpatient IV fluid infusions on Mondays + . Afebrile, erythema mostly resolved. Objective Physical Examination General Exam: Positive: Alert, Cooperative, No Acute Distress; Negative: Mild Distress, Moderate Distress, Severe Distress, Other Eye Exam: Positive: PERRLA, Conjunctiva & lids normal, EOMI; Negative: Sclera icteric, Ptosis, Other Eye Symptoms ENT Exam: Positive: Atraumatic, Mucous membr. moist/pink, Pharynx Normal; Negative: Tongue Midline, Pharyngeal Edema, Nares Patent, Pinna Normal Neck Exam: Positive: Supple, +2 carotid pulse wo bruit; Negative: JVD, thyromegaly, Lymphadenopathy, Other Chest Exam: Positive: Clear to auscultation, Normal air movement; Negative: Rales, Rhonchi, Wheezing, Diminished, Other Heart Exam: Positive: Rate Normal, Regular Rhythm, Normal S1, Normal S2; Negative: Tachycardic, Bradycardic, Irregular Rhythm, Gallops, Murmurs, Rubs, Other Abdomen Exam: Positive: Normal bowel sounds, BS Hyperactive, BS Hypoactive, Soft; Negative: Tenderness, Hepatospenomegaly, Mass, Hernia, Other Extremity Exam: Positive: Normal pulses; Negative: Clubbing, Cyanosis, Edema, Tenderness, Swelling, Other Skin Exam: Positive: Rash (pretty much resolved from admission, no pustular discharge or fluctuance) Neuro Exam: Positive: Normal Speech, Cranial Nerves 3-12 NL Psych Exam: Positive: Mental status NL, Mood NL, Oriented x 3 Assessment /Plan Assessment # Right anterior chest wall cellulitis overlying infusaport, ruled in line sepsis. - s/p infusaport removal (05/09) - operative note reviewed, no signs of deep infection, gram stain shows no organisms, but infusaport cx + staph epi - sensitive to cefazolin (day # 4/5), likely home once new port placed if b.cx remain negative. - Bcx no growth - WBC continues to improve - dilaudid 1 mg IV for pain control - new port placement on Sunday per vascular service # Ulcerative colitis - patient is relatively immunocompromised given recent use of Cimzia - UC symptoms are stable - 1 L NS today x 1 # Anxiety - controlled with clonazepam tid prn # Hyperlipidemia. - continue atorvastatin and gemfibrozil. # Depression. She will be - continue Pristiq. # Deep venous thrombosis (DVT) prophylaxis - Lovenox and SCDs Plan/VTE VTE Prophylaxis Ordered?: Yes VTE Exclusion Mechanical Proph: N/A:VTE Prophy Ordered VTE Exclusion Pharmacological: N/A:VTE Prophy Ordered VS, I&O, 24H, Fishbone Vital Signs/I&O Vital Signs Date Time Temp Pulse Resp B/P (MAP) Pulse Ox O2 Delivery O2 Flow Rate FiO2 05/12/19 13:02 18 05/12/19 10:00 98.7 73 100/65 (77) 97 05/09/19 12:40 Room Air I&O- Last 24 Hours up to 6 AM 05/12/19 06:00 Intake Total 1475 ml Balance 1475 ml Laboratory Data 24H LABS Laboratory Tests 2 05/12/19 05:26: Nucleated Red Blood Cells % (auto) 0.0 CBC/BMP Laboratory Tests 05/12/19 05:26 Red Blood Count 4.02, Mean Corpuscular Volume 93.8, Mean Corpuscular Hemoglobin 31.3, Mean Corpuscular Hemoglobin Concent 33.4, Red Cell Distribution Width 12.7 Microbiology Microbiology 05/09/19 Blood Culture - Preliminary, Resulted No Growth after 72 hours. All specime... 05/09/19 Blood Culture - Preliminary, Resulted No Growth after 72 hours. All specime... 05/09/19 Gram Stain - Final, Complete 05/09/19 Abscess Culture - Final, Complete Staphylococcus Epidermidis 05/09/19 Anaerobic Culture - Final, Complete REGAN COLE MD May 12, 2019 13:43
[2019-05-12 14:00] VITALS: BP 128/78
--- NOTE | 2019-05-12 15:02 | IPNPDOC ---
Date Seen The patient was seen on 05/12/19. Progress Note Ms Morris is a very pleasant 39yo patient POD #3 s/p RIJ port removal 2/2 cellulitis and port infection with staph epi. Blood cultures prelim neg x2 at 72hrs. With IV antibiotics and port removal, her WBC is down again today 21 to 14 to 11.6, now 10.9, and she remains AF, VSS. Her right chest erythema and tenderness continues to improve and is almost completely resolved. No purulence or drainage. She prefers the new port also be placed on the ipsilateral side due to a lot of problems with her left chest port in the past. To be safe doing that, I would continue IV antibiotics until tomorrow and we will plan to place the new port tomorrow morning ~7:30am. I did tell her that if for any reason it did not seem clinically safe to place a RIJ port, we will need to instead do a LIJ port and she is agreeable. Risks, benefits and alternatives explained to the patient for port placement and she is agreeable. Additionally, she says she cannot tolerate any oral antibiotics due to UC, so we will continue with current admission for IV antibiotics. NPO p MN. Hibiclens shower today. Chlorahexadine wipes tomorrow. D/c post port placement tomorrow if clinically stable. We will follow closely. VS, I&O, 24H, Fishbone Vital Signs/I&O Vital Signs Date Time Temp Pulse Resp B/P (MAP) Pulse Ox O2 Delivery O2 Flow Rate FiO2 05/12/19 14:00 97.9 88 18 128/78 (95) 95 05/09/19 12:40 Room Air I&O- Last 24 Hours up to 6 AM 05/12/19 05:59 Intake Total 1475 ml Balance 1475 ml Laboratory Data 24H LABS Laboratory Tests 2 05/12/19 05:26: Nucleated Red Blood Cells % (auto) 0.0 CBC/BMP Laboratory Tests 05/12/19 05:26 Red Blood Count 4.02, Mean Corpuscular Volume 93.8, Mean Corpuscular Hemoglobin 31.3, Mean Corpuscular Hemoglobin Concent 33.4, Red Cell Distribution Width 12.7 Microbiology Microbiology 05/09/19 Blood Culture - Preliminary, Resulted No Growth after 72 hours. All specime... 05/09/19 Blood Culture - Preliminary, Resulted No Growth after 72 hours. All specime... 05/09/19 Gram Stain - Final, Complete 05/09/19 Abscess Culture - Final, Complete Staphylococcus Epidermidis 05/09/19 Anaerobic Culture - Final, Complete SENDY VALADEZ MD May 12, 2019 15:02
[2019-05-12 18:00] VITALS: BP 126/77
[2019-05-12 22:00] VITALS: BP 133/76
[2019-05-13] VITALS (8 sets, daily range): BP systolic 100–118; BP diastolic 52–68
[2019-05-13] MEDS: PERCOCET 5MG/325MG TAB PO PRN ×2 (00:33→13:36)
[2019-05-13] MEDS: MORPHINE 4 MG/ML 1ML VIAL/SYRINGE (J2270) IV PRN (03:13)
[2019-05-13] MEDS: ceFAZolin SOD 1 GM in D5W MINI-BAG PLUS 50 ML IV SCH ×2 (03:13→12:07)
--- NOTE | 2019-05-13 08:45 | ROOPDOC ---
[facility] Report Of Operation Report of Operation DATE OF PROCEDURE: 05/13/19 PREPROCEDURE DIAGNOSES: Need for IV access secondary to ulcerative colitis and malabsorption POSTPROCEDURE DIAGNOSES: Same PROCEDURE: 1. Ultrasound-guided access right internal jugular vein 2. Placement of 21 cm tunneled [id number] SURGEON: Sendy Wellington MD ANESTHESIA: 18 mL of Marcaine with epi local anesthesia. Moderate intravenous conscious sedation was supervised by Dr. Wellington. The patient was independently monitored by a registered nurse assigned to the Department of radiology using automated blood pressure, EKG, and pulse oximetry. The detailed conscious sedation record is permanently stored in the hospital information system. The following is the conscious sedation record: Start time 07:54, Time 08:27, fentanyl 75 g IV total, Versed 1 mg IV total. INDICATION FOR PROCEDURE: Ms. curran is a very pleasant 39-year-old female with a history of right port removal 4 days ago secondary to cellulitis with staph epi. She has received a line holiday with IV antibiotics during her admission, and her cellulitis has completely resolved. Her white blood cell count is normalized. She has remained afebrile with vital signs stable. She has a history of difficulty with her left sided port in the past, and requests that we place the port on the ipsilateral side if it is safe. I discussed with her that this does put her at a slightly increased risk of reinfection, but after 4 days with no signs of ongoing infection, and consisted IV antibiotics, I think it is reasonable to try to place it on the right and we will avoid the previous pocket and tunneled area. Risks benefits and alternatives were explained at length to the patient and she is agreeable to proceed. Informed consent was obtained. The patient received her scheduled IV antibiotics this morning, and thus we will not administer separate dose prior to incision. She will receive another scheduled dose following the procedure as well. INTERPRETATION: The Fdmoxy-a-Vwau is in good placement with no kinks in the catheter and the tip freely mobile at the SVC right atrial junction. No pneumothorax is noted. REPORT OF OPERATION: The patient was brought to the angiographic suite in stable condition and placed supine on the fluoroscopic table. I confirmed that her right jugular vein was patent with ultrasound. Her right neck and chest were prepped and draped in a sterile fashion. A timeout was performed. Sedation was administered without complication. Local anesthesia was administered to the skin and subcutaneous tissue on the right neck over the jugular access site. A microneedle was used to access the jugular vein under ultrasound guidance. A wire was passed through this accident under fluoroscopic guidance into the central system. A micro-sheath was placed over the wire and the wire was exchanged for a J-wire under fluoroscopic guidance. Local anesthesia was a visual merchandising specialist to skin and subcutaneous tissue to 1 cm just her to the clavicle over the right chest. We also anesthetized the soft tissue or the pocket would be placed distal to this, as well as where the tunnel was planned towards the jugular access site. Skin knife was used to make an incision transversely and blunt and sharp dissection was used to develop the pocket distal to this. Hemostasis was achieved with gentle pressure. We confirmed that the port easily fit within the pocket, and then the port was returned heparinized saline. We then tunneled the catheter from the port site to the jugular access site. We exchanged the sheath for peel-away sheath over the wire using the Seldinger technique, in the inner cannula and wire were removed and the catheter was advanced through the peel-away sheath and the peel-away sheath was removed. The catheter was cut 21 cm and attached to the port securely. The port was then placed into the pocket. The pocket was irrigated with Ancef irrigation, as well as the jugular access site. Final imaging confirmed the port to be in good place with no kinks in the catheter and the tip freely mobile at the SVC right atrial junction. There is no pneumothorax. With a Jhaveri needle through the skin, we were able to access the port easily and the port fidelia back and flushed without difficulty. It was heparin locked. We then closed the jugular access site with deep interrupted Vicryl suture and a subcuticular interrupted Monocryl suture. Dermabond was placed at the skin. The port pocket was closed with a deep layer of interrupted Vicryl sutures, running dermal layer Vicryl sutures, and a runni ng subcuticular Monocryl suture at the skin. Mastisol and Steri-Strips were placed length of the incision. We also redressed the previous incision from the port removal with Mastisol and Steri-Strips. Good hemostasis was noted at the end of the case. The patient was then returned to her holding area and monitored and then will be transferred to the floor. She tolerated the sedation well. ESTIMATED BLOOD LOSS: Approximately 5 mL. COMPLICATIONS: None. PLAN: The patient tolerated sedation well and will be returned to the floor. Try to keep the head of bed elevated greater than 45 to minimize venous pressure at the neck and chest site. Okay to resume diet. Okay from a vascular standpoint to be discharged later today after her next dose of IV antibiotics were administered. Recommend patient use Hibiclens in the shower at home prior to her weekly infusions to minimize the risk of port infections. It is okay to use the port for blood draws, infusions, medications, as needed. SENDY WELLINGTON MD May 13, 2019 08:45
[2019-05-13] MEDS: ENOXAPARIN 40 MG/0.4 ML SYRINGE (J1650) SC SCH (09:00)
[2019-05-13] MEDS: DESVENLAFAXINE ER 50 MG TABLET (PRISTIQ) PO SCH (09:11)
[2019-05-13] MEDS: PANTOPRAZOLE 20 MG TAB PO SCH (09:11)
[2019-05-13] MEDS: GEMFIBROZIL 600 MG TAB PO SCH (09:12)
[2019-05-13] MEDS: ATORVASTATIN 20 MG TAB PO SCH (09:12)
[2019-05-13] MEDS: HYDROmorphone HCL 2 MG/ML 1ML VIAL (J1170) IV PRN (09:21)
[2019-05-13] MEDS ORDERED: HIBI4LIQ EX (13:02)
[2019-05-13] MEDS ORDERED: HIBI4LIQ EXT (13:05)
--- NOTE | 2019-05-13 13:06 | DS.PDOC ---
Discharge Summary General Date of Admission May 09, 2019 at 11:30 Date of Discharge 05/13/2019 Attending Physician: ROSEMARY PERRY MD Discharge Summary PROCEDURES PERFORMED DURING STAY: Port removal on 05/09, and new port placement on 05/13 ADMITTING DIAGNOSES: 1. Cellulitis DISCHARGE DIAGNOSES: 1. Port site cellulits 2. Ulcerative colitis COMPLICATIONS/CHIEF COMPLAINT: Cellulitis. HISTORY OF PRESENT ILLNESS: 39-year-old woman with ulcerative colitis on Cimzia infusions every 2 weeks, with a Port-a-Cath in place for hydration (gets 2 liters of NS infused per week) who presented with right anterior chest wall pain with increasing redness. HOSPITAL COURSE: She was found to have leukocytosis with negative blood cultures and thus diagnosed with cellulitis around her port site. her Port catheter tip site was positive for staph epidermis and she was treated with 5 days of cefazolin. The port itself was removed on 05/09 and after negative blood cultures and being afebrile, with a normalized WBC she had a new port placed on 05/13. She is now being discharged home to continue her baseline treatment plan with Cimzia and IV hydration weekly, after completing 5 days of IV cefazolin and is to use Hibiclens in the shower at home prior to her weekly infusions to minimize the risk of port infections. DISCHARGE MEDICATIONS: Please see below. ALLERGIES: Please see below. PHYSICAL EXAMINATION ON DISCHARGE: VITAL SIGNS: Please see below. LABORATORY DATA: Please see below. IMAGIN05/09/2019:CXR COMPARISON: 08/10/2018. There is a right central venous catheter with the tip in the superior vena cava. There is no acute infiltrate. The heart is normal in size. The visualized osseous structures are intact. PROGNOSIS: Good ACTIVITY: As tolerated DIET: Regular DISCHARGE PLAN: Home with PCP and GI follow up within 10 days of discharge. DISPOSITION: Home with PCP and GI follow up. DISCHARGE INSTRUCTIONS: 1. 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 Please resume your IV hydration and Cimzia schedule, and use Hibiclens in the shower at home prior to her weekly infusions to minimize the risk of port infections. ITEMS TO FOLLOWUP ON ON OUTPATIENT: 1. Resolution of port site cellulitis 2. Ulcerative colitis 3. supportive hydration for volume depletion DISCHARGE CONDITION: Good TIME SPENT ON DISCHARGE: Greater than 30 minutes. Vital Signs/I&Os Vital Signs Date Time Temp Pulse Resp B/P (MAP) Pulse Ox O2 Delivery O2 Flow Rate FiO2 05/13/19 10:00 98.2 76 18 113/65 (81) 97 05/13/19 08:17 2 05/09/19 12:40 Room Air I&O- Last 24 Hours up to 6 AM 05/13/19 05:59 Intake Total 2850 ml Output Total 300 ml Balance 2550 ml Microbiology Microbiology 05/09/19 Blood Culture - Preliminary, Resulted No Growth after 72 hours. All specime... 05/09/19 Blood Culture - Preliminary, Resulted No Growth after 72 hours. All specime... 05/09/19 Gram Stain - Final, Complete 05/09/19 Abscess Culture - Final, Complete Staphylococcus Epidermidis 05/09/19 Anaerobic Culture - Final, Complete Discharge Medications Scheduled Atorvastatin Calcium (Atorvastatin Calcium) 20 Mg Tab, 20 MG PO DAILY, (Reported) Certolizumab Pegol (Cimzia) 200 Mg Kit, 200 MG SC Q2WK, (Reported) EVERY OTHER SUNDAY Desvenlafaxine Succinate (Pristiq) 100 Mg Tab, 100 MG PO DAILY, (Reported) Gemfibrozil (Gemfibrozil) 600 Mg Tab, 600 MG PO DAILY, (Reported) Pantoprazole Sodium (Pantoprazole Sodium) 20 Mg Tablet.dr, 1 TAB PO DAILY, ( Reported) Scheduled PRN Chlorhexidine Gluconate (Hibiclens) 118 Ml Liquid, 4 % EXT 1XWK PRN for SEE LABEL COMMENTS For bath/shower once weekly before port accessed for IV fluids Clonazepam (Clonazepam) 1 Mg Tab, 1 MG PO TID PRN for ANXIETY, (Reported) Guaifenesin (Mucinex) 600 Mg Tab.er.12h, 600 MG PO BID PRN for CONGESTION, (Reported) Ondansetron HCl (Zofran) 4 Mg Tab, 4 MG PO Q6HP PRN for NAUSEA, (Reported) Oxycodone HCl/Acetaminophen (Oxycodone-Acetaminophen 10-325) 1 Each Tablet, 1 TAB PO QID PRN for PAIN, (Reported) MAY TAKE ONE TO TWO TABS Pseudoephedrine HCl (Sudafed) 30 Mg Tablet, 30 MG PO Q4H PRN for CONGESTION, (Reported) Allergies Coded Allergies: Contrast Media (Verified Allergy, Severe, ANAPHYLACTIC SHOCK, 05/28/18) povidone-iodine (Unverified Allergy, Intermediate, CONTACT DERMITITIS, 11/15/18) TAPE (Verified Allergy, Unknown, 05/12/19) ibuprofen (Unverified Allergy, Unknown, 11/15/18) latex (Unverified Allergy, Unknown, 11/15/18) lidocaine (Unverified Allergy, Unknown, 11/15/18) morphine (Unverified Adverse Reaction, Intermediate, HEADACHE , NAUSEA, 11/15/18) ROSEMARY PERRY MD May 13, 2019 12:52
== END 2019-05-13 17:00 | disposition home or self-care (01) | DRG 315 ==
LOC: M ED 09:52 → M ED INP 11:30 → M MSPAV 12:49
PROVIDERS: ADMIT Internal Medicine; ATTEND Internal Medicine
PROC: 0W2 Anatomical Regions, General, Change (ICD-10-PCS; 2019-05-09)
PROC: 05HM33Z Insertion of Infusion Device into Right Internal Jugular Vein, Percutaneous Approach (ICD-10-PCS; 2019-05-13)
PROC: 0JH63XZ Insertion of Tunneled Vascular Access Device into Chest Subcutaneous Tissue and Fascia, Percutaneous Approach (ICD-10-PCS; principal; 2019-05-13 07:30)
DX: T80.212A Local infection due to central venous catheter, initial encounter (principal); L03.313 Cellulitis of chest wall; K51.90 Ulcerative colitis, unspecified, without complications; D72.829 Elevated white blood cell count, unspecified; Z79.899 Other long term (current) drug therapy; Z91.041 Radiographic dye allergy status; Z91.040 Latex allergy status; Z88.5 Allergy status to narcotic agent; Z88.8 Allergy status to other drugs, medicaments and biological substances; F41.9 Anxiety disorder, unspecified; F32.9 Major depressive disorder, single episode, unspecified; Z87.891 Personal history of nicotine dependence; G43.909 Migraine, unspecified, not intractable, without status migrainosus; E78.5 Hyperlipidemia, unspecified; Y83.8 Other surgical procedures as the cause of abnormal reaction of the patient, or of later complication, without mention of misadventure at the time of the procedure

== ENCOUNTER 2019-05-15 08:11 | Outpatient (CLI) | payer MEDICARE, OTHER ==
[~2019-05-15] VITALS: Ht 162.6 cm; Wt 81.8 kg
[~2019-05-15 08:11] MED LIST changes: +HIBI4LIQ EX; +HIBI4LIQ EXT; +MUCI600T31 PO; +NS 1,000 ML IV ONE; +OXYC10TA3 PO; +PSEU30TA85 PO
[2019-05-15 08:15] VITALS: BP 119/58
[2019-05-15] MEDS ORDERED: SODIUM CHLORIDE 0.9% INJ 10 ML SYR IV SCH (09:00)
[2019-05-15 10:55] VITALS: BP 110/57
== END 2019-05-15 10:55 | disposition home or self-care (01) ==
LOC: M INFU 08:11
PROVIDERS: ATTEND Internal Medicine Gastroenterology
DX: E86.0 Dehydration (principal); R10.84 Generalized abdominal pain; K86.1 Other chronic pancreatitis; K51.80 Other ulcerative colitis without complications; Z88.0 Allergy status to penicillin; Z88.1 Allergy status to other antibiotic agents; Z88.2 Allergy status to sulfonamides; Z91.041 Radiographic dye allergy status; Z91.040 Latex allergy status; Z88.5 Allergy status to narcotic agent

== ENCOUNTER 2019-05-19 07:53 | Outpatient (CLI) | payer MEDICARE, OTHER ==
[~2019-05-19] VITALS: Ht 162.6 cm; Wt 81.8 kg
[~2019-05-19 07:53] MED LIST changes: -NS 1,000 ML IV ONE
[2019-05-19 08:05] VITALS: BP 131/74
[2019-05-19] MEDS ORDERED: NS 1,000 ML IV SCH (09:00)
[2019-05-19] MEDS ORDERED: SODIUM CHLORIDE 0.9% INJ 10 ML SYR IV SCH (09:00)
[2019-05-19 09:55] VITALS: BP 109/57
== END 2019-05-19 09:55 | disposition home or self-care (01) ==
LOC: M INFU 07:53
PROVIDERS: ATTEND Internal Medicine Gastroenterology
DX: E86.0 Dehydration (principal)

== ENCOUNTER 2019-05-19 17:57 | Emergency (ER) | payer MEDICARE, OTHER ==
[~2019-05-19] VITALS: Ht 162.6 cm; Wt 86.8 kg
[~2019-05-19 17:57] MED LIST changes: -OMEP40CA2 PO; +OMEP40CA97 PO
[2019-05-19 21:36] LABS: HEMATOCRIT 37.6 % (36.0-47.0); HEMOGLOBIN 12.7 g/dl (12.0-15.5); MEAN CORPUSCULAR HEMOGLOBIN 31.4 pg (27.0-33.0); MEAN CORPUSCULAR HGB CONC 33.8 g/dl (32.0-36.5); MEAN CORPUSCULAR VOLUME 92.8 fl (80.0-96.0); PLATELET COUNT, AUTOMATED 376 10^3/uL (150-450); RED BLOOD COUNT 4.05 10^6/uL (4.00-5.40); WHITE BLOOD COUNT 12.6 10^3/uL (4.0-10.0)
[2019-05-19 21:44] LABS: ATYPICAL LYMPH 2 % (0-5); EOSINOPHILS 2 % (0-3); LYMPHOCYTES 36 % (16-44); MONOCYTES 5 % (0-5); NEUTROPHILS 55 % (28-66)
[2019-05-19 21:45] LABS: ANISOCYTOSIS 1+; PLATELET ESTIMATE NORMAL (NORMAL); POIKILOCYTOSIS 1+
[2019-05-19 22:00] LABS: BLOOD UREA NITROGEN 10 MG/DL (7-18); CALCIUM LEVEL 9.3 MG/DL (8.5-10.1); CARBON DIOXIDE LEVEL 26 MEQ/L (21-32); CHLORIDE LEVEL 107 MEQ/L (98-107); CREATININE FOR GFR 0.66 MG/DL (0.55-1.30); GLOMERULAR FILTRATION RATE > 60.0 (>60); GLUCOSE, FASTING 93 MG/DL (70-100); POTASSIUM SERUM 4.4 MEQ/L (3.5-5.1); SODIUM LEVEL 139 MEQ/L (136-145)
[2019-05-19] MEDS ORDERED: KETOROLAC 30 MG/ML VIAL (J1885) IV ONE (22:45)
--- NOTE | 2019-05-20 00:39 | REPVR ---
PROCEDURE INFORMATION: Exam: US Chest Exam date and time: 05/19/2019 12:04 AM Clinical history: 39 years old, female; Chest wall pain; Prior surgery; Surgery date: 3-7 days post-operative; Surgery type: Infusaport; Additional info: Port eval TECHNIQUE: Imaging protocol: Real time ultrasound of the chest was performed with image documentation. COMPARISON: US Chest echo B 08/10/2018 8:05 PM CR - Chest, 2 view PA, Lat 05/09/2019 11:23:56 AM FINDINGS: Soft tissues: No fluid collection is noted around the right sided [id number]. Vasculature: The imaged portions of the right internal jugular vein and right subclavian vein are patent and demonstrate normal color Doppler flow and normal spectral waveforms. IMPRESSION: Unremarkable examination. No fluid collection seen around the right sided [id number]. Electronically signed by: Ced Phillips On 05/20/2019 00:39:06 AM
[2019-05-20] MEDS ORDERED: NORCO 5/325MG TABLET (BULK FOR ED) PO ONE (01:30)
[2019-05-20 01:51] VITALS: BP 100/54
== END 2019-05-20 01:53 | disposition home or self-care (01) ==
LOC: M ED 17:57
DX: G89.18 Other acute postprocedural pain (principal); E78.00 Pure hypercholesterolemia, unspecified; I95.9 Hypotension, unspecified; K21.9 Gastro-esophageal reflux disease without esophagitis; K51.911 Ulcerative colitis, unspecified with rectal bleeding; R51 Headache; E86.0 Dehydration; Z79.891 Long term (current) use of opiate analgesic; Z79.899 Other long term (current) drug therapy; Z88.5 Allergy status to narcotic agent; Z88.8 Allergy status to other drugs, medicaments and biological substances; Z91.040 Latex allergy status; Z91.041 Radiographic dye allergy status; Z87.891 Personal history of nicotine dependence; Z87.19 Personal history of other diseases of the digestive system; Z95.828 Presence of other vascular implants and grafts
CPT/HCPCS: 76604; 80048; 83605; 85025; 87040; 96360; 99284; J1885

== ENCOUNTER 2019-05-22 07:30 | Outpatient (CLI) | payer MEDICARE, OTHER ==
[~2019-05-22] VITALS: Ht 162.6 cm; Wt 86.8 kg
[2019-05-22 07:30] VITALS: BP 115/60
[~2019-05-22 07:30] MED LIST changes: +NS 1,000 ML IV ONE; +OMEP40CA2 PO; -OMEP40CA97 PO
[2019-05-22 07:58] LABS: HEMATOCRIT 37.8 % (36.0-47.0); HEMOGLOBIN 12.5 g/dl (12.0-15.5); MEAN CORPUSCULAR HEMOGLOBIN 30.6 pg (27.0-33.0); MEAN CORPUSCULAR HGB CONC 33.1 g/dl (32.0-36.5); MEAN CORPUSCULAR VOLUME 92.4 fl (80.0-96.0); PLATELET COUNT, AUTOMATED 374 10^3/uL (150-450); RED BLOOD COUNT 4.09 10^6/uL (4.00-5.40)
[2019-05-22 08:22] LABS: ERYTHROCYTE SEDIMENTATION RATE 35 mm/hr (0-20)
[2019-05-22 08:25] LABS: ALBUMIN 4.2 GM/DL (3.2-5.2); ALT/SGPT 39 U/L (12-78); BILIRUBIN,TOTAL 0.3 MG/DL (0.2-1.0); BLOOD UREA NITROGEN 18 MG/DL (7-18); C REACTIVE PROTEIN QUANTITATIV 0.42 MG/DL (0.00-0.30); CALCIUM LEVEL 9.4 MG/DL (8.5-10.1); CARBON DIOXIDE LEVEL 24 MEQ/L (21-32); CHLORIDE LEVEL 105 MEQ/L (98-107); CHOLESTEROL LEVEL 282 MG/DL (<200); CREATININE FOR GFR 0.83 MG/DL (0.55-1.30); GLOMERULAR FILTRATION RATE > 60.0 (>60); GLUCOSE, FASTING 112 MG/DL (70-100); HDL CHOLESTEROL 46 MG/DL (>40); LDL CHOLESTEROL 166 MG/DL (<100); LIPASE 109 U/L (73-393); NON-HDL-C 236 MG/DL; SODIUM LEVEL 136 MEQ/L (136-145); TOTAL PROTEIN 8.3 GM/DL (6.4-8.2); TRIGLYCERIDES LEVEL 352 MG/DL (<150)
[2019-05-22 08:29] LABS: ATYPICAL LYMPH 1 % (0-5); EOSINOPHILS 2 % (0-3); LYMPHOCYTES 40 % (16-44); MONOCYTES 7 % (0-5); NEUTROPHILS 50 % (28-66)
[2019-05-22 08:30] LABS: PLATELET ESTIMATE NORMAL (NORMAL)
[2019-05-22 09:45] VITALS: BP 123/58
== END 2019-05-22 09:45 | disposition home or self-care (01) ==
LOC: M INFU 07:30
PROVIDERS: ATTEND Internal Medicine Gastroenterology
DX: E86.0 Dehydration (principal); Z88.1 Allergy status to other antibiotic agents; Z88.5 Allergy status to narcotic agent; Z91.040 Latex allergy status; Z91.041 Radiographic dye allergy status

== ENCOUNTER 2019-05-26 08:47 | Outpatient (CLI) | payer MEDICARE, OTHER ==
[~2019-05-26] VITALS: Ht 162.6 cm; Wt 81.8 kg
[~2019-05-26 08:47] MED LIST changes: -NS 1,000 ML IV ONE
[2019-05-26 08:50] VITALS: BP 109/59
[2019-05-26] MEDS ORDERED: NS 1,000 ML IV SCH (09:15)
[2019-05-26 11:00] VITALS: BP 100/59
== END 2019-05-26 11:00 | disposition home or self-care (01) ==
LOC: M INFU 08:47
PROVIDERS: ATTEND Internal Medicine Gastroenterology
DX: E86.0 Dehydration (principal); Z88.5 Allergy status to narcotic agent; Z91.040 Latex allergy status; Z91.041 Radiographic dye allergy status; Z91.048 Other nonmedicinal substance allergy status

== ENCOUNTER 2019-05-29 07:47 | Outpatient (CLI) | payer MEDICARE, OTHER ==
[~2019-05-29] VITALS: Ht 162.6 cm; Wt 86.8 kg
[2019-05-29 08:00] VITALS: BP 127/80
[2019-05-29] MEDS ORDERED: NS 2,000 ML IV ONE (08:30)
[2019-05-29] MEDS ORDERED: SODIUM CHLORIDE 0.9% INJ 10 ML SYR IV SCH (09:00)
[2019-05-29 10:15] VITALS: BP 124/71
== END 2019-05-29 10:15 | disposition home or self-care (01) ==
LOC: M INFU 07:47
PROVIDERS: ATTEND Internal Medicine Gastroenterology
DX: E86.0 Dehydration (principal); Z88.0 Allergy status to penicillin; Z88.1 Allergy status to other antibiotic agents; Z88.2 Allergy status to sulfonamides; Z91.041 Radiographic dye allergy status; Z91.040 Latex allergy status; Z88.5 Allergy status to narcotic agent

== ENCOUNTER 2019-06-02 08:03 | Outpatient (CLI) | payer MEDICARE, OTHER ==
[~2019-06-02] VITALS: Ht 162.6 cm; Wt 81.8 kg
[~2019-06-02 08:03] MED LIST changes: +NS 1,000 ML IV SCH; -OMEP40CA2 PO; +OMEP40CA97 PO
[2019-06-02 08:05] VITALS: BP 121/60
[2019-06-02] MEDS ORDERED: SODIUM CHLORIDE 0.9% INJ 10 ML SYR IV SCH (09:00)
[2019-06-02 10:10] VITALS: BP 99/60
== END 2019-06-02 10:10 | disposition home or self-care (01) ==
LOC: M INFU 08:03
PROVIDERS: ATTEND Internal Medicine Gastroenterology
DX: E86.0 Dehydration (principal); Z88.1 Allergy status to other antibiotic agents; Z88.5 Allergy status to narcotic agent; Z91.040 Latex allergy status; Z91.041 Radiographic dye allergy status

== ENCOUNTER 2019-06-05 15:37 | Outpatient (CLI) | payer MEDICARE, OTHER ==
[~2019-06-05] VITALS: Ht 162.6 cm; Wt 81.8 kg
[~2019-06-05 15:37] MED LIST changes: +SODIUM CHLORIDE 0.9% INJ 10 ML SYR IV SCH
[2019-06-05 15:40] VITALS: BP 142/88
[2019-06-05 17:29] VITALS: BP 134/79
== END 2019-06-05 17:30 | disposition home or self-care (01) ==
LOC: M INFU 15:37
PROVIDERS: ATTEND Internal Medicine Gastroenterology
DX: E86.0 Dehydration (principal); Z88.5 Allergy status to narcotic agent; Z88.1 Allergy status to other antibiotic agents; Z91.040 Latex allergy status; Z91.041 Radiographic dye allergy status

== ENCOUNTER 2019-06-09 07:39 | Outpatient (CLI) | payer MEDICARE, OTHER ==
[~2019-06-09] VITALS: Ht 162.6 cm; Wt 81.8 kg
[~2019-06-09 07:39] MED LIST changes: -SODIUM CHLORIDE 0.9% INJ 10 ML SYR IV SCH
[2019-06-09 07:45] VITALS: BP 117/65
[2019-06-09 08:23] LABS: BASO # 0.1 10^3/uL (0.0-0.2); BASO % 0.6 % (0.0-1.0); EOS # 0.1 10^3/uL (0.0-0.5); EOS % 0.9 % (0.0-3.0); HEMOGLOBIN 13.4 g/dl (12.0-15.5); LYMPH # 3.3 10^3/uL (1.5-5.0); MEAN CORPUSCULAR HEMOGLOBIN 31.3 pg (27.0-33.0); MEAN CORPUSCULAR HGB CONC 32.7 g/dl (32.0-36.5); MEAN CORPUSCULAR VOLUME 95.8 fl (80.0-96.0); MONO # 0.5 10^3/uL (0.0-0.8); MONO % 4.5 % (0.0-5.0); NEUTROPHILS # 7.4 10^3/uL (1.5-8.5); NEUTROPHILS % 64.6 % (36.0-66.0); PLATELET COUNT, AUTOMATED 350 10^3/uL (150-450); RED BLOOD COUNT 4.28 10^6/uL (4.00-5.40); WHITE BLOOD COUNT 11.4 10^3/uL (4.0-10.0)
[2019-06-09 08:43] LABS: ALBUMIN 4.1 GM/DL (3.2-5.2); ALT/SGPT 22 U/L (12-78); BILIRUBIN,TOTAL 0.3 MG/DL (0.2-1.0); BLOOD UREA NITROGEN 12 MG/DL (7-18); CALCIUM LEVEL 9.4 MG/DL (8.5-10.1); CARBON DIOXIDE LEVEL 22 MEQ/L (21-32); CHLORIDE LEVEL 109 MEQ/L (98-107); CHOLESTEROL LEVEL 253 MG/DL (<200); CHOLESTEROL RISK RATIO 4.773 (<5); CREATININE FOR GFR 0.85 MG/DL (0.55-1.30); GLOMERULAR FILTRATION RATE > 60.0 (>60); GLUCOSE, FASTING 119 MG/DL (70-100); HDL CHOLESTEROL 53 MG/DL (>40); LDL CHOLESTEROL 133 MG/DL (<100); LIPASE 72 U/L (73-393); NON-HDL-C 200 MG/DL; SODIUM LEVEL 138 MEQ/L (136-145); TOTAL PROTEIN 8.1 GM/DL (6.4-8.2); TRIGLYCERIDES LEVEL 336 MG/DL (<150)
[2019-06-09] MEDS ORDERED: SODIUM CHLORIDE 0.9% INJ 10 ML SYR IV SCH (09:00)
[2019-06-09 09:01] LABS: ERYTHROCYTE SEDIMENTATION RATE 29 mm/hr (0-20)
[2019-06-09 09:43] VITALS: BP 100/66
== END 2019-06-09 09:45 | disposition home or self-care (01) ==
LOC: M INFU 07:39
PROVIDERS: ATTEND Internal Medicine Gastroenterology
DX: E86.0 Dehydration (principal); Z88.1 Allergy status to other antibiotic agents; Z88.5 Allergy status to narcotic agent; Z91.040 Latex allergy status; Z91.041 Radiographic dye allergy status; K51.80 Other ulcerative colitis without complications; K86.1 Other chronic pancreatitis; R10.84 Generalized abdominal pain

== ENCOUNTER 2019-06-12 07:10 | Outpatient (CLI) | payer MEDICARE, OTHER ==
[~2019-06-12] VITALS: Ht 162.6 cm; Wt 81.8 kg
[2019-06-12 07:15] VITALS: BP 99/72
[2019-06-12] MEDS ORDERED: SODIUM CHLORIDE 0.9% INJ 10 ML SYR IV ONE (08:00)
[2019-06-12] MEDS ORDERED: NS 1,000 ML IV SCH (08:00)
[2019-06-12 09:15] VITALS: BP 129/71
== END 2019-06-12 09:15 | disposition home or self-care (01) ==
LOC: M INFU 07:10
PROVIDERS: ATTEND Internal Medicine Gastroenterology
DX: E86.0 Dehydration (principal); Z88.1 Allergy status to other antibiotic agents; Z88.5 Allergy status to narcotic agent; Z91.040 Latex allergy status; Z91.041 Radiographic dye allergy status

== ENCOUNTER → 2019-06-12 | Outpatient (REF) | payer MEDICARE, OTHER ==
[~2019-06-12] MED LIST changes: -NS 1,000 ML IV SCH
== END ==
LOC: M LAB REF 12:37
PROVIDERS: ATTEND Internal Medicine Gastroenterology
DX: E86.0 Dehydration (principal); R19.7 Diarrhea, unspecified; Z88.1 Allergy status to other antibiotic agents; Z88.5 Allergy status to narcotic agent; Z91.040 Latex allergy status; Z91.041 Radiographic dye allergy status

== ENCOUNTER 2019-06-16 07:36 | Outpatient (CLI) | payer MEDICARE, OTHER ==
[~2019-06-16] VITALS: Ht 162.6 cm; Wt 81.8 kg
[~2019-06-16 07:36] MED LIST changes: +NS 1,000 ML IV SCH
[2019-06-16 07:40] VITALS: BP 118/72
[2019-06-16] MEDS ORDERED: SODIUM CHLORIDE 0.9% INJ 10 ML SYR IV SCH (09:00)
[2019-06-16 09:45] VITALS: BP 119/64
== END 2019-06-16 09:45 | disposition home or self-care (01) ==
LOC: M INFU 07:36
PROVIDERS: ATTEND Internal Medicine Gastroenterology
DX: E86.0 Dehydration (principal); Z88.1 Allergy status to other antibiotic agents; Z88.5 Allergy status to narcotic agent; Z91.040 Latex allergy status; Z91.041 Radiographic dye allergy status

== ENCOUNTER 2019-06-19 15:20 | Outpatient (CLI) | payer MEDICARE, OTHER ==
[~2019-06-19] VITALS: Ht 162.6 cm; Wt 81.8 kg
[~2019-06-19 15:20] MED LIST changes: -NS 1,000 ML IV SCH
[2019-06-19 15:25] VITALS: BP 126/75
[2019-06-19] MEDS ORDERED: NS 1,000 ML IV SCH (16:30)
[2019-06-19 17:40] VITALS: BP 128/72
== END 2019-06-19 17:40 | disposition home or self-care (01) ==
LOC: M INFU 15:20
PROVIDERS: ATTEND Internal Medicine Gastroenterology
DX: E86.0 Dehydration (principal); Z88.0 Allergy status to penicillin; Z88.1 Allergy status to other antibiotic agents; Z88.2 Allergy status to sulfonamides; Z91.041 Radiographic dye allergy status; Z91.040 Latex allergy status; Z88.5 Allergy status to narcotic agent

== ENCOUNTER 2019-06-23 07:27 | Outpatient (CLI) | payer MEDICARE, OTHER ==
[~2019-06-23] VITALS: Ht 162.6 cm; Wt 81.8 kg
[2019-06-23 07:30] VITALS: BP 113/58
[2019-06-23] MEDS ORDERED: NS 1,000 ML IV SCH (07:30)
[2019-06-23] MEDS: SODIUM CHLORIDE 0.9% INJ 10 ML SYR IV SCH ×2 (07:54→09:40)
[2019-06-23 09:50] VITALS: BP 111/61
== END 2019-06-23 09:50 | disposition home or self-care (01) ==
LOC: M INFU 07:27
PROVIDERS: ATTEND Internal Medicine Gastroenterology
DX: E86.0 Dehydration (principal); Z88.0 Allergy status to penicillin; Z88.1 Allergy status to other antibiotic agents; Z88.2 Allergy status to sulfonamides; Z91.041 Radiographic dye allergy status; Z91.040 Latex allergy status; Z88.5 Allergy status to narcotic agent

== ENCOUNTER 2019-06-26 07:37 | Outpatient (CLI) | payer MEDICARE, OTHER ==
[~2019-06-26] VITALS: Ht 162.6 cm; Wt 81.8 kg
[~2019-06-26 07:37] MED LIST changes: +NS 1,000 ML IV SCH
[2019-06-26 07:40] VITALS: BP 117/58
[2019-06-26] MEDS ORDERED: PERC10TA26 PO (08:06)
[2019-06-26 08:07] LABS: BASO # 0.1 10^3/uL (0.0-0.2); BASO % 0.4 % (0.0-1.0); EOS # 0.1 10^3/uL (0.0-0.5); EOS % 1.2 % (0.0-3.0); HEMATOCRIT 35.5 % (36.0-47.0); HEMOGLOBIN 11.4 g/dl (12.0-15.5); LYMPH # 3.4 10^3/uL (1.5-5.0); LYMPH % 29.4 % (24.0-44.0); MEAN CORPUSCULAR HEMOGLOBIN 31.5 pg (27.0-33.0); MEAN CORPUSCULAR HGB CONC 32.1 g/dl (32.0-36.5); MEAN CORPUSCULAR VOLUME 98.1 fl (80.0-96.0); MONO # 0.9 10^3/uL (0.0-0.8); NEUTROPHILS % 60.3 % (36.0-66.0); PLATELET COUNT, AUTOMATED 269 10^3/uL (150-450); RED BLOOD COUNT 3.62 10^6/uL (4.00-5.40); WHITE BLOOD COUNT 11.7 10^3/uL (4.0-10.0)
[2019-06-26 08:39] LABS: C REACTIVE PROTEIN QUANTITATIV < 0.30 MG/DL (0.00-0.30); CHOLESTEROL LEVEL 202 MG/DL (<200); CHOLESTEROL RISK RATIO 4.208 (<5); HDL CHOLESTEROL 48 MG/DL (>40); LDL CHOLESTEROL 76 MG/DL (<100); LIPASE 76 U/L (73-393); NON-HDL-C 154 MG/DL; TRIGLYCERIDES LEVEL 392 MG/DL (<150)
[2019-06-26] MEDS ORDERED: SODIUM CHLORIDE 0.9% INJ 10 ML SYR IV SCH (09:00)
[2019-06-26 09:18] LABS: ERYTHROCYTE SEDIMENTATION RATE 17 mm/hr (0-20)
[2019-06-26 09:45] VITALS: BP 100/68
== END 2019-06-26 09:45 | disposition home or self-care (01) ==
LOC: M INFU 07:37
PROVIDERS: ATTEND Internal Medicine Gastroenterology
DX: E86.0 Dehydration (principal); Z88.0 Allergy status to penicillin; Z88.1 Allergy status to other antibiotic agents; Z88.2 Allergy status to sulfonamides; Z88.5 Allergy status to narcotic agent; Z91.041 Radiographic dye allergy status; Z91.040 Latex allergy status; Z79.899 Other long term (current) drug therapy

== ENCOUNTER → 2019-06-27 | Outpatient (CLI) | payer MEDICARE, OTHER ==
[~2019-06-27] MED LIST changes: -NS 1,000 ML IV SCH
[2019-06-27 14:32] LABS: HEMATOCRIT 36.7 % (36.0-47.0); MEAN CORPUSCULAR HEMOGLOBIN 30.8 pg (27.0-33.0); MEAN CORPUSCULAR HGB CONC 32.7 g/dl (32.0-36.5); MEAN CORPUSCULAR VOLUME 94.1 fl (80.0-96.0); PLATELET COUNT, AUTOMATED 292 10^3/uL (150-450); WHITE BLOOD COUNT 11.7 10^3/uL (4.0-10.0)
[2019-06-27 14:52] LABS: ALBUMIN 3.8 GM/DL (3.2-5.2); ALT/SGPT 61 U/L (12-78); BILIRUBIN,TOTAL 0.2 MG/DL (0.2-1.0); BLOOD UREA NITROGEN 9 MG/DL (7-18); CALCIUM LEVEL 8.7 MG/DL (8.5-10.1); CARBON DIOXIDE LEVEL 26 MEQ/L (21-32); CHLORIDE LEVEL 105 MEQ/L (98-107); CREATININE FOR GFR 0.66 MG/DL (0.55-1.30); GLOMERULAR FILTRATION RATE > 60.0 (>60); GLUCOSE, FASTING 89 MG/DL (70-100); SODIUM LEVEL 137 MEQ/L (136-145); TOTAL PROTEIN 7.4 GM/DL (6.4-8.2)
[2019-06-27 15:34] LABS: ATYPICAL LYMPH 29 % (0-5); BASOPHILS 1 % (0-1); EOSINOPHILS 1 % (0-3); LYMPHOCYTES 16 % (16-44); MONOCYTES 3 % (0-5); NEUTROPHILS 50 % (28-66); PLATELET ESTIMATE NORMAL (NORMAL); SMUDGE CELLS 1+
== END ==
LOC: M LAB 13:43
PROVIDERS: ATTEND Family Medicine
DX: Z01.812 Encounter for preprocedural laboratory examination (principal)

== ENCOUNTER 2019-07-03 07:23 | Outpatient (CLI) | payer MEDICARE, OTHER ==
[~2019-07-03] VITALS: Ht 162.6 cm; Wt 81.8 kg
[2019-07-03] MEDS ORDERED: NS 1,000 ML IV ONE (07:30)
[2019-07-03 07:32] VITALS: BP 117/66
[2019-07-03] MEDS ORDERED: SODIUM CHLORIDE 0.9% INJ 10 ML SYR IV SCH (09:00)
[2019-07-03 09:15] VITALS: BP 121/67
== END 2019-07-03 09:15 | disposition home or self-care (01) ==
LOC: M INFU 07:23
PROVIDERS: ATTEND Internal Medicine Gastroenterology
DX: E86.0 Dehydration (principal); Z88.1 Allergy status to other antibiotic agents; Z88.5 Allergy status to narcotic agent; Z91.041 Radiographic dye allergy status; Z91.040 Latex allergy status

== ENCOUNTER 2019-07-07 07:23 | Outpatient (CLI) | payer MEDICARE, OTHER ==
[~2019-07-07] VITALS: Ht 162.6 cm; Wt 81.8 kg
[2019-07-07 07:20] VITALS: BP 116/58
[2019-07-07] MEDS ORDERED: NS 1,000 ML IV SCH (09:00)
[2019-07-07] MEDS ORDERED: SODIUM CHLORIDE 0.9% INJ 10 ML SYR IV SCH (09:00)
[2019-07-07 09:40] VITALS: BP 110/59
== END 2019-07-07 09:40 | disposition home or self-care (01) ==
LOC: M INFU 07:23
PROVIDERS: ATTEND Internal Medicine Gastroenterology
DX: E86.0 Dehydration (principal); Z88.1 Allergy status to other antibiotic agents; Z88.5 Allergy status to narcotic agent; Z91.040 Latex allergy status; Z91.041 Radiographic dye allergy status

== ENCOUNTER 2019-07-10 07:38 | Outpatient (CLI) | payer MEDICARE, OTHER ==
[~2019-07-10] VITALS: Ht 162.6 cm; Wt 81.8 kg
[~2019-07-10 07:38] MED LIST changes: +NS 1,000 ML IV SCH
[2019-07-10 07:45] VITALS: BP_SYST 107
[2019-07-10 08:13] LABS: BASO # 0.1 10^3/uL (0.0-0.2); BASO % 0.6 % (0.0-1.0); EOS # 0.2 10^3/uL (0.0-0.5); EOS % 1.3 % (0.0-3.0); HEMATOCRIT 40.4 % (36.0-47.0); HEMOGLOBIN 13.1 g/dl (12.0-15.5); LYMPH # 4.2 10^3/uL (1.5-5.0); MEAN CORPUSCULAR HEMOGLOBIN 30.3 pg (27.0-33.0); MEAN CORPUSCULAR HGB CONC 32.4 g/dl (32.0-36.5); MEAN CORPUSCULAR VOLUME 93.3 fl (80.0-96.0); MONO # 0.8 10^3/uL (0.0-0.8); MONO % 6.6 % (0.0-5.0); NEUTROPHILS # 7.1 10^3/uL (1.5-8.5); NEUTROPHILS % 57.2 % (36.0-66.0); PLATELET COUNT, AUTOMATED 398 10^3/uL (150-450); RED BLOOD COUNT 4.33 10^6/uL (4.00-5.40); WHITE BLOOD COUNT 12.4 10^3/uL (4.0-10.0)
[2019-07-10 08:36] LABS: ALT/SGPT 29 U/L (12-78); BILIRUBIN,TOTAL 0.3 MG/DL (0.2-1.0); BLOOD UREA NITROGEN 12 MG/DL (7-18); CALCIUM LEVEL 8.8 MG/DL (8.5-10.1); CARBON DIOXIDE LEVEL 24 MEQ/L (21-32); CHLORIDE LEVEL 107 MEQ/L (98-107); CHOLESTEROL LEVEL 259 MG/DL (<200); CREATININE FOR GFR 0.76 MG/DL (0.55-1.30); GLOMERULAR FILTRATION RATE > 60.0 (>60); GLUCOSE, FASTING 114 MG/DL (70-100); HDL CHOLESTEROL 47 MG/DL (>40); LDL CHOLESTEROL 141 MG/DL (<100); LIPASE 56 U/L (73-393); NON-HDL-C 212 MG/DL; POTASSIUM SERUM 4.5 MEQ/L (3.5-5.1); SODIUM LEVEL 138 MEQ/L (136-145); TOTAL PROTEIN 8.2 GM/DL (6.4-8.2); TRIGLYCERIDES LEVEL 356 MG/DL (<150)
[2019-07-10 08:44] LABS: ERYTHROCYTE SEDIMENTATION RATE 35 mm/hr (0-20)
[2019-07-10] MEDS ORDERED: SODIUM CHLORIDE 0.9% INJ 10 ML SYR IV SCH (09:00)
[2019-07-10 09:40] VITALS: BP 109/58
== END 2019-07-10 09:40 | disposition home or self-care (01) ==
LOC: M INFU 07:38
PROVIDERS: ATTEND Internal Medicine Gastroenterology
DX: E86.0 Dehydration (principal); E78.5 Hyperlipidemia, unspecified; Z88.5 Allergy status to narcotic agent; Z91.040 Latex allergy status; Z91.041 Radiographic dye allergy status; Z79.899 Other long term (current) drug therapy

== ENCOUNTER 2019-07-21 11:25 | Outpatient (CLI) | payer MEDICARE, OTHER ==
[~2019-07-21] VITALS: Ht 162.6 cm; Wt 81.8 kg
[~2019-07-21 11:25] MED LIST changes: +CLON0.5T2 PO; -CLON0.5T8 PO; +SODIUM CHLORIDE 0.9% INJ 10 ML SYR IV SCH
[2019-07-21 11:30] VITALS: BP 116/58
[2019-07-21 13:50] VITALS: BP 106/58
== END 2019-07-21 13:50 | disposition home or self-care (01) ==
LOC: M INFU 11:25
PROVIDERS: ATTEND Internal Medicine Gastroenterology
DX: E86.0 Dehydration (principal); Z88.4 Allergy status to anesthetic agent; Z88.5 Allergy status to narcotic agent; Z88.6 Allergy status to analgesic agent; Z91.040 Latex allergy status; Z91.041 Radiographic dye allergy status; Z91.048 Other nonmedicinal substance allergy status

== ENCOUNTER 2019-07-24 10:19 | Outpatient (CLI) | payer MEDICARE, OTHER ==
[~2019-07-24] VITALS: Ht 162.6 cm; Wt 81.8 kg
[~2019-07-24 10:19] MED LIST changes: -NS 1,000 ML IV SCH
[2019-07-24 10:25] VITALS: BP 117/72
[2019-07-24] MEDS ORDERED: NS 1,000 ML IV SCH (10:45)
[2019-07-24 12:20] VITALS: BP 116/74
== END 2019-07-24 12:20 | disposition home or self-care (01) ==
LOC: M INFU 10:19
PROVIDERS: ATTEND Internal Medicine Gastroenterology
DX: E86.0 Dehydration (principal); Z88.4 Allergy status to anesthetic agent; Z88.5 Allergy status to narcotic agent; Z88.6 Allergy status to analgesic agent; Z91.041 Radiographic dye allergy status; Z91.040 Latex allergy status; Z91.048 Other nonmedicinal substance allergy status

== ENCOUNTER 2019-07-28 10:25 | Outpatient (CLI) | payer MEDICARE, OTHER ==
[~2019-07-28] VITALS: Ht 162.6 cm; Wt 81.8 kg
[~2019-07-28 10:25] MED LIST changes: +NS 1,000 ML IV SCH
[2019-07-28 10:40] VITALS: BP 111/67
[2019-07-28 11:13] LABS: BASO # 0.1 10^3/uL (0.0-0.2); BASO % 0.6 % (0.0-1.0); EOS # 0.1 10^3/uL (0.0-0.5); EOS % 0.9 % (0.0-3.0); HEMATOCRIT 39.1 % (36.0-47.0); HEMOGLOBIN 12.7 g/dl (12.0-15.5); LYMPH # 3.8 10^3/uL (1.5-5.0); LYMPH % 31.6 % (24.0-44.0); MEAN CORPUSCULAR HEMOGLOBIN 30.8 pg (27.0-33.0); MEAN CORPUSCULAR HGB CONC 32.5 g/dl (32.0-36.5); MEAN CORPUSCULAR VOLUME 94.7 fl (80.0-96.0); MONO # 0.8 10^3/uL (0.0-0.8); MONO % 6.9 % (0.0-5.0); NEUTROPHILS # 7.1 10^3/uL (1.5-8.5); NEUTROPHILS % 59.6 % (36.0-66.0); PLATELET COUNT, AUTOMATED 361 10^3/uL (150-450); RED BLOOD COUNT 4.13 10^6/uL (4.00-5.40)
[2019-07-28 11:32] LABS: ERYTHROCYTE SEDIMENTATION RATE 45 mm/hr (0-20)
[2019-07-28 11:40] LABS: ALT/SGPT 27 U/L (12-78); BILIRUBIN,TOTAL 0.2 MG/DL (0.2-1.0); BLOOD UREA NITROGEN 15 MG/DL (7-18); C REACTIVE PROTEIN QUANTITATIV 0.45 MG/DL (0.00-0.30); CARBON DIOXIDE LEVEL 28 MEQ/L (21-32); CHLORIDE LEVEL 106 MEQ/L (98-107); CHOLESTEROL LEVEL 272 MG/DL (<200); CHOLESTEROL RISK RATIO 6.325 (<5); CREATININE FOR GFR 0.68 MG/DL (0.55-1.30); GLOMERULAR FILTRATION RATE > 60.0 (>60); GLUCOSE, FASTING 120 MG/DL (70-100); HDL CHOLESTEROL 43 MG/DL (>40); LIPASE 73 U/L (73-393); NON-HDL-C 229 MG/DL; SODIUM LEVEL 137 MEQ/L (136-145); TOTAL PROTEIN 7.7 GM/DL (6.4-8.2); TRIGLYCERIDES LEVEL 734 MG/DL (<150)
[2019-07-28 12:42] VITALS: BP 121/63
== END 2019-07-28 12:40 | disposition home or self-care (01) ==
LOC: M INFU 10:25
PROVIDERS: ATTEND Internal Medicine Gastroenterology
DX: E86.0 Dehydration (principal); R10.84 Generalized abdominal pain; K86.1 Other chronic pancreatitis; K51.20 Ulcerative (chronic) proctitis without complications; K51.80 Other ulcerative colitis without complications; Z88.4 Allergy status to anesthetic agent; Z88.5 Allergy status to narcotic agent; Z88.6 Allergy status to analgesic agent; Z91.040 Latex allergy status; Z91.041 Radiographic dye allergy status; Z91.048 Other nonmedicinal substance allergy status

== ENCOUNTER 2019-08-04 11:11 | Outpatient (CLI) | payer MEDICARE, OTHER ==
[~2019-08-04] VITALS: Ht 162.6 cm; Wt 81.8 kg
[~2019-08-04 11:11] MED LIST changes: -NS 1,000 ML IV SCH; -SODIUM CHLORIDE 0.9% INJ 10 ML SYR IV SCH
[2019-08-04 11:20] VITALS: BP 117/70
[2019-08-04] MEDS: NS 1,000 ML IV SCH ×3 (11:50→12:54)
[2019-08-04] MEDS ORDERED: SODIUM CHLORIDE 0.9% INJ 10 ML SYR IV ONE (12:00)
[2019-08-04 13:00] VITALS: BP 123/66
== END 2019-08-04 13:00 | disposition home or self-care (01) ==
LOC: M INFU 11:11
PROVIDERS: ATTEND Internal Medicine Gastroenterology
DX: E86.0 Dehydration (principal)

== ENCOUNTER 2019-08-07 07:44 | Outpatient (CLI) | payer MEDICARE, OTHER ==
[~2019-08-07] VITALS: Ht 162.6 cm; Wt 81.8 kg
[2019-08-07] MEDS ORDERED: NS 1,000 ML IV ONE (08:00)
[2019-08-07 08:22] VITALS: BP 122/76
[2019-08-07] MEDS ORDERED: SODIUM CHLORIDE 0.9% INJ 10 ML SYR IV SCH (09:00)
[2019-08-07 09:49] VITALS: BP 135/78
== END 2019-08-07 09:50 | disposition home or self-care (01) ==
LOC: M INFU 07:44
PROVIDERS: ATTEND Internal Medicine Gastroenterology
DX: E86.0 Dehydration (principal)

== ENCOUNTER 2019-08-11 10:04 | Outpatient (CLI) | payer MEDICARE, OTHER ==
[~2019-08-11] VITALS: Ht 162.6 cm; Wt 81.8 kg
[~2019-08-11 10:04] MED LIST changes: +SODIUM CHLORIDE 0.9% INJ 10 ML SYR IV SCH
[2019-08-11 10:10] VITALS: BP 124/80
[2019-08-11] MEDS: NS 1,000 ML IV SCH ×4 (11:00→11:55)
[2019-08-11 12:10] VITALS: BP 116/75
== END 2019-08-11 12:10 | disposition home or self-care (01) ==
LOC: M INFU 10:04
PROVIDERS: ATTEND Internal Medicine Gastroenterology
DX: E86.0 Dehydration (principal)

== ENCOUNTER 2019-08-14 10:28 | Outpatient (CLI) | payer MEDICARE, OTHER ==
[~2019-08-14] VITALS: Ht 162.6 cm; Wt 81.8 kg
[2019-08-14] MEDS ORDERED: SODIUM CHLORIDE 0.9% INJ 10 ML SYR IV PRN (10:30)
[2019-08-14] MEDS ORDERED: NS 1,000 ML IV SCH (10:30)
[2019-08-14 12:01] VITALS: BP 129/68
[2019-08-15] MEDS ORDERED: SODIUM CHLORIDE 0.9% INJ 10 ML SYR IV SCH (09:00)
== END 2019-08-14 12:00 | disposition home or self-care (01) ==
LOC: M INFU 10:28
PROVIDERS: ATTEND Internal Medicine Gastroenterology
DX: E86.0 Dehydration (principal)

== ENCOUNTER 2019-08-21 10:28 | Outpatient (CLI) | payer MEDICARE, OTHER ==
[~2019-08-21] VITALS: Ht 162.6 cm; Wt 81.8 kg
[~2019-08-21 10:28] MED LIST changes: +NS 1,000 ML IV SCH
[2019-08-21 10:44] VITALS: BP 107/62
[2019-08-21 11:09] LABS: BASO # 0.1 10^3/uL (0.0-0.2); BASO % 0.6 % (0.0-1.0); EOS # 0.1 10^3/uL (0.0-0.5); EOS % 1.5 % (0.0-3.0); HEMATOCRIT 37.1 % (36.0-47.0); HEMOGLOBIN 11.6 g/dl (12.0-15.5); LYMPH # 3.6 10^3/uL (1.5-5.0); LYMPH % 38.9 % (24.0-44.0); MEAN CORPUSCULAR HEMOGLOBIN 29.5 pg (27.0-33.0); MEAN CORPUSCULAR HGB CONC 31.3 g/dl (32.0-36.5); MEAN CORPUSCULAR VOLUME 94.4 fl (80.0-96.0); MONO # 0.7 10^3/uL (0.0-0.8); MONO % 7.8 % (0.0-5.0); NEUTROPHILS # 4.7 10^3/uL (1.5-8.5); NEUTROPHILS % 50.9 % (36.0-66.0); PLATELET COUNT, AUTOMATED 271 10^3/uL (150-450); RED BLOOD COUNT 3.93 10^6/uL (4.00-5.40); WHITE BLOOD COUNT 9.3 10^3/uL (4.0-10.0)
[2019-08-21 11:44] LABS: ALBUMIN 3.6 GM/DL (3.2-5.2); ALT/SGPT 16 U/L (12-78); BILIRUBIN,TOTAL 0.2 MG/DL (0.2-1.0); BLOOD UREA NITROGEN 14 MG/DL (7-18); C REACTIVE PROTEIN QUANTITATIV < 0.30 MG/DL (0.00-0.30); CALCIUM LEVEL 8.8 MG/DL (8.5-10.1); CARBON DIOXIDE LEVEL 24 MEQ/L (21-32); CHLORIDE LEVEL 108 MEQ/L (98-107); CHOLESTEROL LEVEL 218 MG/DL (<200); CHOLESTEROL RISK RATIO 5.736 (<5); CREATININE FOR GFR 0.73 MG/DL (0.55-1.30); GLOMERULAR FILTRATION RATE > 60.0 (>60); GLUCOSE, FASTING 101 MG/DL (70-100); HDL CHOLESTEROL 38 MG/DL (>40); LDL CHOLESTEROL 133 MG/DL (<100); LIPASE 107 U/L (73-393); NON-HDL-C 180 MG/DL; POTASSIUM SERUM 4.2 MEQ/L (3.5-5.1); SODIUM LEVEL 139 MEQ/L (136-145); TOTAL PROTEIN 6.9 GM/DL (6.4-8.2); TRIGLYCERIDES LEVEL 234 MG/DL (<150)
[2019-08-21 11:45] LABS: ERYTHROCYTE SEDIMENTATION RATE 28 mm/hr (0-20)
[2019-08-21 12:30] VITALS: BP 117/60
== END 2019-08-21 12:30 | disposition home or self-care (01) ==
LOC: M INFU 10:28
PROVIDERS: ATTEND Internal Medicine Gastroenterology
DX: E86.0 Dehydration (principal); E78.5 Hyperlipidemia, unspecified; Z88.1 Allergy status to other antibiotic agents; Z91.040 Latex allergy status; Z91.041 Radiographic dye allergy status

== ENCOUNTER 2019-08-25 10:53 | Outpatient (CLI) | payer MEDICARE, OTHER ==
[~2019-08-25] VITALS: Ht 162.6 cm; Wt 81.8 kg
[2019-08-25 11:00] VITALS: BP 126/71
[2019-08-25 12:45] VITALS: BP 109/59
== END 2019-08-25 12:45 | disposition home or self-care (01) ==
LOC: M INFU 10:53
PROVIDERS: ATTEND Internal Medicine Gastroenterology
DX: E86.0 Dehydration (principal); Z88.1 Allergy status to other antibiotic agents; Z88.5 Allergy status to narcotic agent; Z91.040 Latex allergy status; Z91.041 Radiographic dye allergy status

== ENCOUNTER 2019-08-28 07:13 | Outpatient (CLI) | payer MEDICARE, OTHER ==
[~2019-08-28] VITALS: Ht 162.6 cm; Wt 81.8 kg
[~2019-08-28 07:13] MED LIST changes: -SODIUM CHLORIDE 0.9% INJ 10 ML SYR IV SCH
[2019-08-28 07:15] VITALS: BP 121/64
[2019-08-28] MEDS ORDERED: SODIUM CHLORIDE 0.9% INJ 10 ML SYR IV SCH (09:00)
[2019-08-28 09:10] VITALS: BP 123/93
== END 2019-08-28 09:10 | disposition home or self-care (01) ==
LOC: M INFU 07:13
PROVIDERS: ATTEND Internal Medicine Gastroenterology
DX: E86.0 Dehydration (principal); Z88.1 Allergy status to other antibiotic agents; Z88.5 Allergy status to narcotic agent; Z91.040 Latex allergy status; Z91.041 Radiographic dye allergy status

== ENCOUNTER 2019-09-01 09:29 | Outpatient (CLI) | payer MEDICARE, OTHER ==
[~2019-09-01] VITALS: Ht 162.6 cm; Wt 81.8 kg
[~2019-09-01 09:29] MED LIST changes: +SODIUM CHLORIDE 0.9% INJ 10 ML SYR IV ONE
[2019-09-01 09:30] VITALS: BP 124/73
[2019-09-01 11:25] VITALS: BP 121/79
== END 2019-09-01 11:25 | disposition home or self-care (01) ==
LOC: M INFU 09:29
PROVIDERS: ATTEND Internal Medicine Gastroenterology
DX: E86.0 Dehydration (principal); Z88.1 Allergy status to other antibiotic agents; Z88.6 Allergy status to analgesic agent; Z91.040 Latex allergy status; Z91.041 Radiographic dye allergy status

== ENCOUNTER 2019-09-04 12:45 | Outpatient (CLI) | payer MEDICARE, OTHER ==
[~2019-09-04] VITALS: Ht 162.6 cm; Wt 81.8 kg
[~2019-09-04 12:45] MED LIST changes: -SODIUM CHLORIDE 0.9% INJ 10 ML SYR IV ONE; +SODIUM CHLORIDE 0.9% INJ 10 ML SYR IV SCH
[2019-09-04 12:50] VITALS: BP 119/81
[2019-09-04] MEDS ORDERED: NS 1,000 ML IV ONE (14:00)
[2019-09-04 14:40] VITALS: BP 130/78
== END 2019-09-04 14:40 | disposition home or self-care (01) ==
LOC: M INFU 12:45
PROVIDERS: ATTEND Internal Medicine Gastroenterology
DX: E86.0 Dehydration (principal); Z88.1 Allergy status to other antibiotic agents; Z91.041 Radiographic dye allergy status; Z91.040 Latex allergy status; Z88.5 Allergy status to narcotic agent

== ENCOUNTER 2019-09-08 10:39 | Outpatient (CLI) | payer MEDICARE, OTHER ==
[~2019-09-08] VITALS: Ht 162.6 cm; Wt 81.8 kg
[~2019-09-08 10:39] MED LIST changes: +SODIUM CHLORIDE 0.9% INJ 10 ML SYR IV ONE; -SODIUM CHLORIDE 0.9% INJ 10 ML SYR IV SCH
[2019-09-08 10:40] VITALS: BP 101/61
[2019-09-08 11:43] LABS: BASO # 0.1 10^3/uL (0.0-0.2); BASO % 0.4 % (0.0-1.0); EOS # 0.1 10^3/uL (0.0-0.5); EOS % 0.7 % (0.0-3.0); HEMATOCRIT 40.9 % (36.0-47.0); HEMOGLOBIN 12.9 g/dl (12.0-15.5); LYMPH # 3.1 10^3/uL (1.5-5.0); LYMPH % 27.2 % (24.0-44.0); MEAN CORPUSCULAR HEMOGLOBIN 29.6 pg (27.0-33.0); MEAN CORPUSCULAR HGB CONC 31.5 g/dl (32.0-36.5); MEAN CORPUSCULAR VOLUME 93.8 fl (80.0-96.0); MONO # 0.5 10^3/uL (0.0-0.8); MONO % 4.8 % (0.0-5.0); NEUTROPHILS # 7.5 10^3/uL (1.5-8.5); NEUTROPHILS % 66.5 % (36.0-66.0); PLATELET COUNT, AUTOMATED 353 10^3/uL (150-450); RED BLOOD COUNT 4.36 10^6/uL (4.00-5.40); WHITE BLOOD COUNT 11.3 10^3/uL (4.0-10.0)
[2019-09-08 13:03] LABS: ERYTHROCYTE SEDIMENTATION RATE 22 mm/hr (0-20)
[2019-09-08 13:04] LABS: ALBUMIN 4.2 GM/DL (3.2-5.2); ALT/SGPT 20 U/L (12-78); BILIRUBIN,TOTAL 0.4 MG/DL (0.2-1.0); BLOOD UREA NITROGEN 9 MG/DL (7-18); C REACTIVE PROTEIN QUANTITATIV < 0.30 MG/DL (0.00-0.30); CALCIUM LEVEL 9.8 MG/DL (8.5-10.1); CARBON DIOXIDE LEVEL 22 MEQ/L (21-32); CHLORIDE LEVEL 106 MEQ/L (98-107); CHOLESTEROL LEVEL 239 MG/DL (<200); CHOLESTEROL RISK RATIO 5.195 (<5); CREATININE FOR GFR 0.74 MG/DL (0.55-1.30); GLOMERULAR FILTRATION RATE > 60.0 (>60); GLUCOSE, FASTING 103 MG/DL (70-100); HDL CHOLESTEROL 46 MG/DL (>40); LDL CHOLESTEROL 138 MG/DL (<100); LIPASE 73 U/L (73-393); NON-HDL-C 193 MG/DL; POTASSIUM SERUM 4.1 MEQ/L (3.5-5.1); SODIUM LEVEL 138 MEQ/L (136-145); TOTAL PROTEIN 7.8 GM/DL (6.4-8.2); TRIGLYCERIDES LEVEL 276 MG/DL (<150)
[2019-09-08 13:10] VITALS: BP 100/70
== END 2019-09-08 13:15 | disposition home or self-care (01) ==
LOC: M INFU 10:39
PROVIDERS: ATTEND Internal Medicine Gastroenterology
DX: E86.0 Dehydration (principal); Z88.5 Allergy status to narcotic agent; Z88.6 Allergy status to analgesic agent; Z91.041 Radiographic dye allergy status; Z91.048 Other nonmedicinal substance allergy status; Z91.040 Latex allergy status; Z79.899 Other long term (current) drug therapy

== ENCOUNTER 2019-09-11 08:59 | Outpatient (CLI) | payer MEDICARE, OTHER ==
[~2019-09-11] VITALS: Ht 162.6 cm; Wt 81.8 kg
[~2019-09-11 08:59] MED LIST changes: -NS 1,000 ML IV SCH; -SODIUM CHLORIDE 0.9% INJ 10 ML SYR IV ONE
[2019-09-11 09:00] VITALS: BP 120/84
[2019-09-11] MEDS ORDERED: SODIUM CHLORIDE 0.9% INJ 10 ML SYR IV SCH (09:00)
[2019-09-11] MEDS ORDERED: NS 1,000 ML IV ONE (09:15)
[2019-09-11 11:00] VITALS: BP 117/61
== END 2019-09-11 16:21 | disposition home or self-care (01) ==
LOC: M INFU 08:59
PROVIDERS: ATTEND Internal Medicine Gastroenterology
DX: E86.0 Dehydration (principal); Z91.040 Latex allergy status; Z91.041 Radiographic dye allergy status; Z91.048 Other nonmedicinal substance allergy status; Z88.5 Allergy status to narcotic agent
CPT/HCPCS: 96360; 96361; J1642

== ENCOUNTER 2019-09-15 10:30 | Outpatient (CLI) | payer MEDICARE, OTHER ==
[~2019-09-15] VITALS: Ht 162.6 cm; Wt 81.8 kg
[~2019-09-15 10:30] MED LIST changes: +SODIUM CHLORIDE 0.9% INJ 10 ML SYR IV SCH
[2019-09-15 10:35] VITALS: BP 117/62
[2019-09-15] MEDS ORDERED: NS 1,000 ML IV SCH (11:00)
[2019-09-15 12:30] VITALS: BP 116/64
[2019-09-15 12:45] VITALS: BP 118/64
== END 2019-09-15 12:30 | disposition home or self-care (01) ==
LOC: M INFU 10:30
PROVIDERS: ATTEND Internal Medicine Gastroenterology
DX: E86.0 Dehydration (principal); Z88.1 Allergy status to other antibiotic agents; Z91.041 Radiographic dye allergy status; Z91.040 Latex allergy status; Z88.5 Allergy status to narcotic agent
CPT/HCPCS: 96360; J1642

== ENCOUNTER 2019-09-18 10:26 | Outpatient (CLI) | payer MEDICARE, OTHER ==
[~2019-09-18] VITALS: Ht 162.6 cm; Wt 81.8 kg
[2019-09-18 10:45] VITALS: BP 115/70
[2019-09-18] MEDS ORDERED: NS 1,000 ML IV ONE (11:00)
[2019-09-18 12:25] VITALS: BP 115/58
== END 2019-09-18 12:30 | disposition home or self-care (01) ==
LOC: M INFU 10:26
PROVIDERS: ATTEND Internal Medicine Gastroenterology
DX: E86.0 Dehydration (principal); Z88.1 Allergy status to other antibiotic agents; Z88.5 Allergy status to narcotic agent; Z91.040 Latex allergy status; Z91.041 Radiographic dye allergy status
CPT/HCPCS: 96360; J1642

== ENCOUNTER 2019-09-22 10:35 | Outpatient (CLI) | payer MEDICARE, OTHER ==
[~2019-09-22] VITALS: Ht 162.6 cm; Wt 81.8 kg
[2019-09-22 10:35] VITALS: BP 111/60
[2019-09-22] MEDS ORDERED: NS 1,000 ML IV ONE (11:00)
[2019-09-22 11:13] LABS: BASO # 0.1 10^3/uL (0.0-0.2); BASO % 0.5 % (0.0-1.0); EOS # 0.1 10^3/uL (0.0-0.5); EOS % 0.9 % (0.0-3.0); HEMATOCRIT 38.2 % (36.0-47.0); HEMOGLOBIN 12.3 g/dl (12.0-15.5); LYMPH # 3.8 10^3/uL (1.5-5.0); LYMPH % 37.2 % (24.0-44.0); MEAN CORPUSCULAR HEMOGLOBIN 30.1 pg (27.0-33.0); MEAN CORPUSCULAR HGB CONC 32.2 g/dl (32.0-36.5); MEAN CORPUSCULAR VOLUME 93.6 fl (80.0-96.0); MONO # 0.7 10^3/uL (0.0-0.8); MONO % 6.4 % (0.0-5.0); NEUTROPHILS # 5.5 10^3/uL (1.5-8.5); NEUTROPHILS % 54.5 % (36.0-66.0); PLATELET COUNT, AUTOMATED 294 10^3/uL (150-450); RED BLOOD COUNT 4.08 10^6/uL (4.00-5.40); WHITE BLOOD COUNT 10.1 10^3/uL (4.0-10.0)
[2019-09-22 11:30] LABS: ALT/SGPT 20 U/L (12-78); BILIRUBIN,TOTAL 0.3 MG/DL (0.2-1.0); BLOOD UREA NITROGEN 9 MG/DL (7-18); CALCIUM LEVEL 8.9 MG/DL (8.5-10.1); CARBON DIOXIDE LEVEL 25 MEQ/L (21-32); CHLORIDE LEVEL 107 MEQ/L (98-107); CREATININE FOR GFR 0.65 MG/DL (0.55-1.30); GLOMERULAR FILTRATION RATE > 60.0 (>60); GLUCOSE, FASTING 91 MG/DL (70-100); LIPASE 106 U/L (73-393); POTASSIUM SERUM 3.9 MEQ/L (3.5-5.1); SODIUM LEVEL 138 MEQ/L (136-145); TOTAL PROTEIN 7.3 GM/DL (6.4-8.2)
[2019-09-22 11:40] LABS: CHOLESTEROL RISK RATIO 4.204 (<5)
[2019-09-22 12:45] VITALS: BP 129/76
[2019-09-22 13:56] LABS: ERYTHROCYTE SEDIMENTATION RATE 25 mm/hr (0-20)
== END 2019-09-22 12:45 | disposition home or self-care (01) ==
LOC: M INFU 10:35
PROVIDERS: ATTEND Internal Medicine Gastroenterology
DX: E86.0 Dehydration (principal); Z88.5 Allergy status to narcotic agent; Z91.040 Latex allergy status; Z91.041 Radiographic dye allergy status; Z91.048 Other nonmedicinal substance allergy status; Z79.899 Other long term (current) drug therapy
CPT/HCPCS: 36591; 80053; 80061; 83690; 85025; 85652; 86140; 96360; J1642

== ENCOUNTER 2019-09-29 08:31 | Outpatient (CLI) | payer MEDICARE, OTHER ==
[~2019-09-29] VITALS: Ht 162.6 cm; Wt 81.8 kg
[~2019-09-29 08:31] MED LIST changes: -SODIUM CHLORIDE 0.9% INJ 10 ML SYR IV SCH
[2019-09-29] MEDS ORDERED: NS 1,000 ML IV ONE (08:45)
[2019-09-29 08:55] VITALS: BP 129/66
[2019-09-29] MEDS ORDERED: SODIUM CHLORIDE 0.9% INJ 10 ML SYR IV PRN (10:00)
[2019-09-29 10:15] VITALS: BP 100/55
[2019-09-30] MEDS ORDERED: SODIUM CHLORIDE 0.9% INJ 10 ML SYR IV SCH (09:00)
== END 2019-09-29 10:15 | disposition home or self-care (01) ==
LOC: M INFU 08:31
PROVIDERS: ATTEND Internal Medicine Gastroenterology
DX: E86.0 Dehydration (principal); Z88.1 Allergy status to other antibiotic agents; Z88.5 Allergy status to narcotic agent; Z91.040 Latex allergy status; Z91.041 Radiographic dye allergy status
CPT/HCPCS: 96360; J1642

== ENCOUNTER 2019-10-02 10:13 | Outpatient (CLI) | payer MEDICARE, OTHER ==
[~2019-10-02] VITALS: Ht 162.6 cm; Wt 81.8 kg
[~2019-10-02 10:13] MED LIST changes: +SODIUM CHLORIDE 0.9% INJ 10 ML SYR IV SCH
[2019-10-02 10:25] VITALS: BP 131/68
[2019-10-02] MEDS ORDERED: NS 1,000 ML IV ONE (10:30)
[2019-10-02 12:32] VITALS: BP 121/70
== END 2019-10-02 12:30 | disposition home or self-care (01) ==
LOC: M INFU 10:13
PROVIDERS: ATTEND Internal Medicine Gastroenterology
DX: E86.0 Dehydration (principal); Z88.1 Allergy status to other antibiotic agents; Z88.5 Allergy status to narcotic agent; Z91.040 Latex allergy status; Z91.041 Radiographic dye allergy status; Z91.048 Other nonmedicinal substance allergy status
CPT/HCPCS: 96360; 96361; J1642

== ENCOUNTER 2019-10-06 09:58 | Outpatient (CLI) | payer MEDICARE, OTHER ==
[~2019-10-06] VITALS: Ht 162.6 cm; Wt 81.8 kg
[2019-10-06 10:13] VITALS: BP 121/73
[2019-10-06] MEDS ORDERED: NS 1,000 ML IV ONE (10:15)
[2019-10-06 10:35] LABS: BASO # 0.1 10^3/uL (0.0-0.2); BASO % 0.4 % (0.0-1.0); EOS # 0.1 10^3/uL (0.0-0.5); EOS % 0.4 % (0.0-3.0); HEMATOCRIT 40.3 % (36.0-47.0); HEMOGLOBIN 13.2 g/dl (12.0-15.5); LYMPH # 2.9 10^3/uL (1.5-5.0); MEAN CORPUSCULAR HEMOGLOBIN 30.2 pg (27.0-33.0); MEAN CORPUSCULAR HGB CONC 32.8 g/dl (32.0-36.5); MEAN CORPUSCULAR VOLUME 92.2 fl (80.0-96.0); MONO # 0.6 10^3/uL (0.0-0.8); MONO % 4.2 % (0.0-5.0); NEUTROPHILS # 10.2 10^3/uL (1.5-8.5); NEUTROPHILS % 73.6 % (36.0-66.0); PLATELET COUNT, AUTOMATED 355 10^3/uL (150-450); RED BLOOD COUNT 4.37 10^6/uL (4.00-5.40); WHITE BLOOD COUNT 13.9 10^3/uL (4.0-10.0)
[2019-10-06 11:02] LABS: ALBUMIN 4.4 GM/DL (3.2-5.2); ALT/SGPT 34 U/L (12-78); BILIRUBIN,TOTAL 0.4 MG/DL (0.2-1.0); BLOOD UREA NITROGEN 11 MG/DL (7-18); CALCIUM LEVEL 9.3 MG/DL (8.5-10.1); CARBON DIOXIDE LEVEL 23 MEQ/L (21-32); CHLORIDE LEVEL 107 MEQ/L (98-107); CHOLESTEROL LEVEL 255 MG/DL (<200); CHOLESTEROL RISK RATIO 6.375 (<5); CREATININE FOR GFR 0.76 MG/DL (0.55-1.30); GLOMERULAR FILTRATION RATE > 60.0 (>60); GLUCOSE, FASTING 123 MG/DL (70-100); HDL CHOLESTEROL 40 MG/DL (>40); LIPASE 54 U/L (73-393); NON-HDL-C 215 MG/DL; POTASSIUM SERUM 3.5 MEQ/L (3.5-5.1); SODIUM LEVEL 138 MEQ/L (136-145); TOTAL PROTEIN 8.1 GM/DL (6.4-8.2); TRIGLYCERIDES LEVEL 617 MG/DL (<150)
[2019-10-06 11:05] LABS: ERYTHROCYTE SEDIMENTATION RATE 24 mm/hr (0-20)
[2019-10-06 12:15] VITALS: BP 112/58
== END 2019-10-06 12:15 | disposition home or self-care (01) ==
LOC: M INFU 09:58
PROVIDERS: ATTEND Internal Medicine Gastroenterology
DX: E86.0 Dehydration (principal); Z88.5 Allergy status to narcotic agent; Z88.6 Allergy status to analgesic agent; Z91.040 Latex allergy status; Z91.048 Other nonmedicinal substance allergy status; Z79.899 Other long term (current) drug therapy
CPT/HCPCS: 36591; 80053; 80061; 83690; 85025; 85652; 96360; 96361; J1642

== ENCOUNTER 2019-10-08 14:40 | Emergency (ER) | payer MEDICARE, OTHER ==
[~2019-10-08] VITALS: Ht 160 cm; Wt 91.1 kg
[~2019-10-08 14:40] MED LIST changes: -SODIUM CHLORIDE 0.9% INJ 10 ML SYR IV SCH
[2019-10-08] MEDS ORDERED: LOMO2.5T PO (16:53)
[2019-10-08] MEDS ORDERED: BUSP15TA47 PO (16:53)
[2019-10-08] MEDS ORDERED: NS 1,000 ML IV ONE (17:00)
[2019-10-08] MEDS ORDERED: methylPREDNISolone INJ 125 MG/2 ML VIAL (J2930) IV ONE (17:00)
[2019-10-08] MEDS ORDERED: PERCOCET 5MG/325MG TAB PO ONE (17:00)
[2019-10-08] MEDS ORDERED: FAMOTIDINE INJ 20MG/2ML VIAL (S0028) IVP ONE (17:00)
[2019-10-08] MEDS ORDERED: ONDANSETRON 4MG/2ML VIAL (J2405) IV ONE (17:00)
[2019-10-08] MEDS ORDERED: diphenhydrAMINE INJ 50MG/ML VIAL (J1200) IV ONE (17:00)
--- NOTE | 2019-10-08 18:13 | REPVR ---
PROCEDURE INFORMATION: Exam: CT Abdomen And Pelvis Without Contrast Exam date and time: 10/08/2019 5:53 PM Age: 39 years old Clinical indication: Abdominal pain; Localized; Left upper quadrant (luq); Additional info: Luq pain/allergy to contrast TECHNIQUE: Imaging protocol: Computed tomography of the abdomen and pelvis without contrast. Radiation optimization: All CT scans at this facility use at least one of these dose optimization techniques: automated exposure control; mA and/or kV adjustment per patient size (includes targeted exams where dose is matched to clinical indication); or iterative reconstruction. COMPARISON: CT ABD PELVIS W/O CONTRAST 10/02/2018 8:19 PM FINDINGS: Liver: Shaila's configuration right lobe of the liver. Gallbladder and bile ducts: There has been a cholecystectomy. Pancreas: Normal. No ductal dilation. Spleen: Normal. No splenomegaly. Adrenals: Normal. No mass. Kidneys and ureters: Normal. No hydronephrosis. Stomach and bowel: Sutures demonstrated at the rectum associated with wall thickening. Correlation with clinical exam recommended to exclude a mass. Appendix: No evidence of appendicitis. Intraperitoneal space: Unremarkable. No free air. No significant fluid collection. Vasculature: Unremarkable. No abdominal aortic aneurysm. Lymph nodes: Unremarkable. No enlarged lymph nodes. Bladder: Unremarkable as visualized. Reproductive: 2.9 cm cyst left ovary likely functional. Bones/joints: Sclerotic focus right anterior aspect of L4 adjacent to the endplate likely degenerative. Finding is stable. Mild central spinal stenosis L4-L5. Bulging annulus L5-S1. Soft tissues: Bilateral breast implants. Mild inflammation in the subcutaneous fat to the left of the umbilicus associated with mild skin thickening. Clinical correlation to exclude infection including cellulitis. No well-defined abscess demonstrated. IMPRESSION: 1. There has been a cholecystectomy. 2. Sutures demonstrated at the rectum associated with wall thickening. Correlation with clinical exam recommended to exclude a mass. 3. Mild inflammation in the subcutaneous fat to the left of the umbilicus associated with mild skin thickening. Clinical correlation to exclude infection including cellulitis. No well-defined abscess demonstrated. Electronically signed by: Phuc Woodward On 10/08/2019 18:13:36 PM
[2019-10-08 19:16] LABS: HEMATOCRIT 38.5 % (36.0-47.0); HEMOGLOBIN 12.7 g/dl (12.0-15.5); MEAN CORPUSCULAR HEMOGLOBIN 30.5 pg (27.0-33.0); MEAN CORPUSCULAR VOLUME 92.5 fl (80.0-96.0); PLATELET COUNT, AUTOMATED 353 10^3/uL (150-450); RED BLOOD COUNT 4.16 10^6/uL (4.00-5.40); WHITE BLOOD COUNT 12.9 10^3/uL (4.0-10.0)
[2019-10-08 19:27] LABS: INR 1.01
[2019-10-08 19:28] LABS: PARTIAL THROMBOPLASTIN TIME 43.7 SECONDS (25.0-38.4)
[2019-10-08 19:30] LABS: ATYPICAL LYMPH 7 % (0-5); EOSINOPHILS 1 % (0-3); LYMPHOCYTES 31 % (16-44); MONOCYTES 6 % (0-5); NEUTROPHILS 55 % (28-66); PLATELET ESTIMATE NORMAL (NORMAL)
[2019-10-08 19:50] LABS: ALBUMIN 4.3 GM/DL (3.2-5.2); ALT/SGPT 22 U/L (12-78); BILIRUBIN,DIRECT 0.1 MG/DL (0.0-0.2); BILIRUBIN,TOTAL 0.3 MG/DL (0.2-1.0); BLOOD UREA NITROGEN 8 MG/DL (7-18); CALCIUM LEVEL 9.2 MG/DL (8.5-10.1); CARBON DIOXIDE LEVEL 25 MEQ/L (21-32); CHLORIDE LEVEL 109 MEQ/L (98-107); CREATININE FOR GFR 0.65 MG/DL (0.55-1.30); GLOMERULAR FILTRATION RATE > 60.0 (>60); GLUCOSE, FASTING 94 MG/DL (70-100); LIPASE 48 U/L (73-393); POTASSIUM SERUM 3.8 MEQ/L (3.5-5.1); SODIUM LEVEL 139 MEQ/L (136-145); TOTAL PROTEIN 7.8 GM/DL (6.4-8.2)
[2019-10-08 19:54] LABS: ERYTHROCYTE SEDIMENTATION RATE 21 mm/hr (0-20)
[2019-10-08] MEDS ORDERED: DALBAVANCIN 1,500 MG in D5W 250 ML IV ONE (21:30)
[2019-10-08] MEDS ORDERED: oxyCODONE 5MG TAB PO ONE (22:00)
[2019-10-08 22:18] VITALS: BP 125/73
--- NOTE | 2019-10-09 07:10 | ED PDOC ---
Post-Departure Follow-Up radiology report faxed to Ingris Ohara MD Oct 09, 2019 07:10
== END 2019-10-08 22:23 | disposition home or self-care (01) ==
LOC: M ED 14:40
DX: L03.311 Cellulitis of abdominal wall (principal); T47.6X5A Adverse effect of antidiarrheal drugs, initial encounter; G89.29 Other chronic pain; M79.10 Myalgia, unspecified site; F41.9 Anxiety disorder, unspecified; F32.9 Major depressive disorder, single episode, unspecified; F43.10 Post-traumatic stress disorder, unspecified; Z87.442 Personal history of urinary calculi; G04.90 Encephalitis and encephalomyelitis, unspecified; G43.909 Migraine, unspecified, not intractable, without status migrainosus; H93.19 Tinnitus, unspecified ear; K21.9 Gastro-esophageal reflux disease without esophagitis; K44.9 Diaphragmatic hernia without obstruction or gangrene; Z96.89 Presence of other specified functional implants; K85.90 Acute pancreatitis without necrosis or infection, unspecified; E66.9 Obesity, unspecified; Z90.49 Acquired absence of other specified parts of digestive tract; Z87.891 Personal history of nicotine dependence; Z79.899 Other long term (current) drug therapy; Z88.8 Allergy status to other drugs, medicaments and biological substances; Z88.5 Allergy status to narcotic agent; Z91.89 Other specified personal risk factors, not elsewhere classified; Z91.040 Latex allergy status; Z91.041 Radiographic dye allergy status
CPT/HCPCS: 74176; 80048; 80076; 81001; 83605; 83690; 85025; 85610; 85652; 85730; 96361; 96365; 96375; 99284; J0875; J1200; J2405; J2930

== ENCOUNTER 2019-10-13 07:44 | Outpatient (CLI) | payer MEDICARE, OTHER ==
[~2019-10-13] VITALS: Ht 162.6 cm; Wt 81.8 kg
[~2019-10-13 07:44] MED LIST changes: +LOMO2.5T PO
[2019-10-13 07:52] VITALS: BP 111/64
[2019-10-13] MEDS ORDERED: NS 1,000 ML IV ONE (08:00)
[2019-10-13] MEDS ORDERED: SODIUM CHLORIDE 0.9% INJ 10 ML SYR IV SCH (09:00)
[2019-10-13 09:38] VITALS: BP 128/68
== END 2019-10-13 09:40 | disposition home or self-care (01) ==
LOC: M INFU 07:44
PROVIDERS: ATTEND Internal Medicine Gastroenterology
DX: E86.0 Dehydration (principal); Z88.5 Allergy status to narcotic agent; Z88.6 Allergy status to analgesic agent; Z91.048 Other nonmedicinal substance allergy status

== ENCOUNTER 2019-10-16 08:58 | Outpatient (CLI) | payer MEDICARE, OTHER ==
[~2019-10-16] VITALS: Ht 162.6 cm; Wt 81.8 kg
[2019-10-16 09:00] VITALS: BP 121/77
[2019-10-16] MEDS ORDERED: SODIUM CHLORIDE 0.9% INJ 10 ML SYR IV SCH (09:00)
[2019-10-16] MEDS ORDERED: NS 1,000 ML IV SCH (09:15)
[2019-10-16 10:20] VITALS: BP 116/66
== END 2019-10-16 10:20 | disposition home or self-care (01) ==
LOC: M INFU 08:58
PROVIDERS: ATTEND Internal Medicine Gastroenterology
DX: E86.0 Dehydration (principal); Z88.5 Allergy status to narcotic agent; Z88.6 Allergy status to analgesic agent; Z91.041 Radiographic dye allergy status; Z91.040 Latex allergy status
CPT/HCPCS: 96360; J1642

== ENCOUNTER 2019-10-27 08:49 | Outpatient (CLI) | payer MEDICARE, OTHER ==
[~2019-10-27] VITALS: Ht 162.6 cm; Wt 81.8 kg
[2019-10-27 09:23] VITALS: BP 115/58
[2019-10-27] MEDS ORDERED: NS 1,000 ML IV SCH (10:00)
[2019-10-27] MEDS ORDERED: SODIUM CHLORIDE 0.9% INJ 10 ML SYR IV ONE (10:00)
[2019-10-27 10:35] LABS: HEMATOCRIT 36.5 % (36.0-47.0); HEMOGLOBIN 11.9 g/dl (12.0-15.5); MEAN CORPUSCULAR HEMOGLOBIN 30.7 pg (27.0-33.0); MEAN CORPUSCULAR HGB CONC 32.6 g/dl (32.0-36.5); MEAN CORPUSCULAR VOLUME 94.3 fl (80.0-96.0); PLATELET COUNT, AUTOMATED 337 10^3/uL (150-450); RED BLOOD COUNT 3.87 10^6/uL (4.00-5.40); WHITE BLOOD COUNT 12.8 10^3/uL (4.0-10.0)
[2019-10-27 11:03] LABS: C REACTIVE PROTEIN QUANTITATIV < 0.30 MG/DL (0.00-0.30); CHOLESTEROL LEVEL 243 MG/DL (<200); CHOLESTEROL RISK RATIO 6.394 (<5); HDL CHOLESTEROL 38 MG/DL (>40); NON-HDL-C 205 MG/DL; TRIGLYCERIDES LEVEL 714 MG/DL (<150)
[2019-10-27 11:13] LABS: ERYTHROCYTE SEDIMENTATION RATE 13 mm/hr (0-20)
[2019-10-27 11:25] VITALS: BP 121/58
== END 2019-10-27 11:25 | disposition home or self-care (01) ==
LOC: M INFU 08:49
PROVIDERS: ATTEND Internal Medicine Gastroenterology
DX: E86.0 Dehydration (principal); R19.7 Diarrhea, unspecified; K86.1 Other chronic pancreatitis; K51.20 Ulcerative (chronic) proctitis without complications; Z88.1 Allergy status to other antibiotic agents; Z91.040 Latex allergy status; Z91.041 Radiographic dye allergy status; Z88.5 Allergy status to narcotic agent
CPT/HCPCS: 36591; 80061; 83690; 85027; 85652; 86140; 96360; 96361; J1642

== ENCOUNTER 2019-10-30 08:18 | Outpatient (CLI) | payer MEDICARE, OTHER ==
[~2019-10-30] VITALS: Ht 162.6 cm; Wt 81.8 kg
[2019-10-30 08:38] VITALS: BP 117/72
[2019-10-30] MEDS ORDERED: SODIUM CHLORIDE 0.9% INJ 10 ML SYR IV ONE (09:00)
[2019-10-30] MEDS ORDERED: NS 1,000 ML IV SCH (09:00)
[2019-10-30 10:40] VITALS: BP 110/65
== END 2019-10-30 10:40 | disposition home or self-care (01) ==
LOC: M INFU 08:18
PROVIDERS: ATTEND Internal Medicine Gastroenterology
DX: E86.0 Dehydration (principal)
CPT/HCPCS: 96365; J1642

== ENCOUNTER 2019-11-10 08:10 | Outpatient (CLI) | payer MEDICARE, OTHER ==
[~2019-11-10] VITALS: Ht 162.6 cm; Wt 86.4 kg
[2019-11-10] MEDS ORDERED: SODIUM CHLORIDE 0.9% INJ 10 ML SYR IV PRN (08:15)
[2019-11-10 08:39] VITALS: BP 107/60
[2019-11-10 08:49] LABS: HEMATOCRIT 39.7 % (36.0-47.0); MEAN CORPUSCULAR HEMOGLOBIN 30.7 pg (27.0-33.0); MEAN CORPUSCULAR HGB CONC 32.7 g/dl (32.0-36.5); MEAN CORPUSCULAR VOLUME 93.9 fl (80.0-96.0); PLATELET COUNT, AUTOMATED 332 10^3/uL (150-450); RED BLOOD COUNT 4.23 10^6/uL (4.00-5.40)
[2019-11-10] MEDS ORDERED: SODIUM CHLORIDE 0.9% INJ 10 ML SYR IV SCH ×2 (09:00)
[2019-11-10] MEDS ORDERED: NS 1,000 ML IV SCH (09:00)
[2019-11-10 09:10] LABS: ERYTHROCYTE SEDIMENTATION RATE 21 mm/hr (0-20)
[2019-11-10 09:12] LABS: ALBUMIN 3.9 GM/DL (3.2-5.2); ALT/SGPT 25 U/L (12-78); BILIRUBIN,TOTAL 0.4 MG/DL (0.2-1.0); BLOOD UREA NITROGEN 11 MG/DL (7-18); CALCIUM LEVEL 9.1 MG/DL (8.5-10.1); CARBON DIOXIDE LEVEL 23 MEQ/L (21-32); CHLORIDE LEVEL 110 MEQ/L (98-107); CREATININE FOR GFR 0.76 MG/DL (0.55-1.30); GLOMERULAR FILTRATION RATE > 60.0 (>60); GLUCOSE, FASTING 120 MG/DL (70-100); POTASSIUM SERUM 3.7 MEQ/L (3.5-5.1); SODIUM LEVEL 140 MEQ/L (136-145); TOTAL PROTEIN 7.5 GM/DL (6.4-8.2)
[2019-11-10 10:23] VITALS: BP 115/67
== END 2019-11-10 10:25 | disposition home or self-care (01) ==
LOC: M INFU 08:10
PROVIDERS: ATTEND Internal Medicine Gastroenterology
DX: E86.0 Dehydration (principal); Z88.5 Allergy status to narcotic agent; Z88.6 Allergy status to analgesic agent; Z91.041 Radiographic dye allergy status; Z91.040 Latex allergy status; Z79.899 Other long term (current) drug therapy
CPT/HCPCS: 36591; 80053; 80061; 83690; 85027; 85652; 96360; J1642

== ENCOUNTER 2019-11-17 08:48 | Outpatient (CLI) | payer MEDICARE, OTHER ==
[~2019-11-17] VITALS: Ht 162.6 cm; Wt 86.4 kg
[2019-11-17 09:00] VITALS: BP 90/54
[2019-11-17] MEDS ORDERED: NS 1,000 ML IV SCH (09:00)
[2019-11-17] MEDS ORDERED: SODIUM CHLORIDE 0.9% INJ 10 ML SYR IV PRN (09:00)
[2019-11-17] MEDS ORDERED: SODIUM CHLORIDE 0.9% INJ 10 ML SYR IV SCH ×2 (09:00)
[2019-11-17 10:53] VITALS: BP 110/58
== END 2019-11-17 10:55 | disposition home or self-care (01) ==
LOC: M INFU 08:48
PROVIDERS: ATTEND Internal Medicine Gastroenterology
DX: E86.0 Dehydration (principal); Z88.5 Allergy status to narcotic agent; Z88.6 Allergy status to analgesic agent; Z91.041 Radiographic dye allergy status; Z91.040 Latex allergy status
CPT/HCPCS: 96360; J1642

== ENCOUNTER 2019-12-18 08:17 | Outpatient (CLI) | payer MEDICARE, OTHER ==
[~2019-12-18] VITALS: Ht 162.6 cm; Wt 86.4 kg
[2019-12-18 08:20] VITALS: BP 109/74
[2019-12-18] MEDS ORDERED: NS 1,000 ML IV ONE (08:30)
[2019-12-18] MEDS ORDERED: SODIUM CHLORIDE 0.9% INJ 10 ML SYR IV PRN (08:30)
[2019-12-18] MEDS ORDERED: SODIUM CHLORIDE 0.9% INJ 10 ML SYR IV SCH (09:00)
[2019-12-18 10:25] VITALS: BP 120/64
== END 2019-12-18 10:25 | disposition home or self-care (01) ==
LOC: M INFU 08:17
PROVIDERS: ATTEND Internal Medicine Gastroenterology
DX: E86.0 Dehydration (principal); R10.84 Generalized abdominal pain; K86.1 Other chronic pancreatitis; K51.20 Ulcerative (chronic) proctitis without complications; R19.7 Diarrhea, unspecified; Z88.1 Allergy status to other antibiotic agents; Z88.5 Allergy status to narcotic agent; Z91.040 Latex allergy status; Z91.041 Radiographic dye allergy status
CPT/HCPCS: 96360; 96361; J1642

== ENCOUNTER 2019-12-26 10:24 | Outpatient (CLI) | payer MEDICARE, OTHER ==
[~2019-12-26 10:24] MED LIST changes: +SODIUM CHLORIDE 0.9% INJ 10 ML SYR IV SCH
[2019-12-26 10:25] VITALS: BP 110/74
[2019-12-26] MEDS ORDERED: SODIUM CHLORIDE 0.9% INJ 10 ML SYR IV PRN (10:45)
[2019-12-26] MEDS ORDERED: NS 1,000 ML IV ONE (11:00)
[2019-12-26 11:53] VITALS: BP 124/82
[2019-12-27] MEDS ORDERED: SODIUM CHLORIDE 0.9% INJ 10 ML SYR IV SCH (09:00)
== END 2019-12-26 11:55 | disposition home or self-care (01) ==
LOC: M INFU 10:24
PROVIDERS: ATTEND Internal Medicine Gastroenterology
DX: E86.0 Dehydration (principal); R10.84 Generalized abdominal pain; K86.1 Other chronic pancreatitis; R19.7 Diarrhea, unspecified; K51.20 Ulcerative (chronic) proctitis without complications; Z88.5 Allergy status to narcotic agent; Z91.040 Latex allergy status; Z91.041 Radiographic dye allergy status
CPT/HCPCS: 96365; J1642

== ENCOUNTER 2020-01-08 09:41 | Outpatient (CLI) | payer MEDICARE, OTHER ==
[~2020-01-08] VITALS: Ht 162.6 cm; Wt 86.4 kg
[2020-01-08 09:53] VITALS: BP 97/57
[2020-01-08] MEDS ORDERED: NS 1,000 ML IV SCH (10:00)
[2020-01-08 11:53] VITALS: BP 115/77
== END 2020-01-08 11:55 | disposition home or self-care (01) ==
LOC: M INFU 09:41
PROVIDERS: ATTEND Internal Medicine Gastroenterology
DX: E86.0 Dehydration (principal); R19.7 Diarrhea, unspecified; Z88.5 Allergy status to narcotic agent; Z91.040 Latex allergy status; Z91.041 Radiographic dye allergy status
CPT/HCPCS: 36591; 96360; 96361; J1642

== ENCOUNTER 2020-01-15 09:57 | Outpatient (CLI) | payer MEDICARE, OTHER ==
[~2020-01-15] VITALS: Ht 162.6 cm; Wt 86.3 kg
[~2020-01-15 09:57] MED LIST changes: -SODIUM CHLORIDE 0.9% INJ 10 ML SYR IV SCH
[2020-01-15] MEDS ORDERED: SODIUM CHLORIDE 0.9% INJ 10 ML SYR IV PRN (10:00)
[2020-01-15 10:11] VITALS: BP_SYST 139; BP_SYST 92; BP_DIAS 64; BP_DIAS 68
[2020-01-15] MEDS ORDERED: NS 1,000 ML IV ONE (10:15)
[2020-01-15 12:21] VITALS: BP 114/69
[2020-01-16] MEDS ORDERED: SODIUM CHLORIDE 0.9% INJ 10 ML SYR IV SCH (09:00)
== END 2020-01-15 12:22 | disposition home or self-care (01) ==
LOC: M INFU 09:57
PROVIDERS: ATTEND Internal Medicine Gastroenterology
DX: E86.0 Dehydration (principal); R10.84 Generalized abdominal pain; K86.1 Other chronic pancreatitis; R19.7 Diarrhea, unspecified; K51.20 Ulcerative (chronic) proctitis without complications; Z88.1 Allergy status to other antibiotic agents; Z88.5 Allergy status to narcotic agent; Z91.040 Latex allergy status; Z91.041 Radiographic dye allergy status
CPT/HCPCS: 96360; 96361; J1642

== ENCOUNTER 2020-01-22 08:19 | Outpatient (CLI) | payer MEDICARE, OTHER ==
[~2020-01-22] VITALS: Ht 162.6 cm; Wt 86.4 kg
[~2020-01-22 08:19] MED LIST changes: +SODIUM CHLORIDE 0.9% INJ 10 ML SYR IV PRN
[2020-01-22 08:28] VITALS: BP 101/60
[2020-01-22] MEDS ORDERED: NS 1,000 ML IV SCH (08:45)
[2020-01-22] MEDS ORDERED: SODIUM CHLORIDE 0.9% INJ 10 ML SYR IV SCH (09:00)
[2020-01-22 10:52] VITALS: BP 112/59
== END 2020-01-22 10:55 | disposition home or self-care (01) ==
LOC: M INFU 08:19
PROVIDERS: ATTEND Internal Medicine Gastroenterology
DX: E86.0 Dehydration (principal); R10.84 Generalized abdominal pain; R19.7 Diarrhea, unspecified; K86.1 Other chronic pancreatitis; K51.20 Ulcerative (chronic) proctitis without complications; Z88.5 Allergy status to narcotic agent; Z88.8 Allergy status to other drugs, medicaments and biological substances; Z91.040 Latex allergy status; Z91.041 Radiographic dye allergy status; Z91.048 Other nonmedicinal substance allergy status
CPT/HCPCS: 96360; 96361; J1642

== ENCOUNTER 2020-01-29 10:02 | Outpatient (CLI) | payer MEDICARE, OTHER ==
[~2020-01-29] VITALS: Ht 167.6 cm; Wt 86.4 kg
[~2020-01-29 10:02] MED LIST changes: +NS 1,000 ML IV SCH
[2020-01-29 10:05] VITALS: BP 117/75
[2020-01-29 11:19] VITALS: BP 118/58
[2020-01-30] MEDS ORDERED: SODIUM CHLORIDE 0.9% INJ 10 ML SYR IV SCH (09:00)
== END 2020-01-29 11:20 | disposition home or self-care (01) ==
LOC: M INFU 10:02
PROVIDERS: ATTEND Internal Medicine Gastroenterology
DX: E86.0 Dehydration (principal); K86.1 Other chronic pancreatitis; K51.20 Ulcerative (chronic) proctitis without complications; R10.84 Generalized abdominal pain; R19.7 Diarrhea, unspecified; Z91.040 Latex allergy status; Z91.041 Radiographic dye allergy status; Z88.5 Allergy status to narcotic agent
CPT/HCPCS: 96360; J1642

== ENCOUNTER 2020-02-05 09:29 | Outpatient (CLI) | payer MEDICARE, OTHER ==
[~2020-02-05] VITALS: Ht 167.6 cm; Wt 86.4 kg
[~2020-02-05 09:29] MED LIST changes: -NS 1,000 ML IV SCH; -SODIUM CHLORIDE 0.9% INJ 10 ML SYR IV PRN
[2020-02-05 09:30] VITALS: BP 115/63
[2020-02-05] MEDS ORDERED: SODIUM CHLORIDE 0.9% INJ 10 ML SYR IV PRN (09:45)
[2020-02-05] MEDS ORDERED: NS 1,000 ML IV SCH (09:45)
[2020-02-05] MEDS ORDERED: CLON-589 PO (10:11)
[2020-02-05] MEDS ORDERED: CLONI1TA PO (10:11)
[2020-02-05] MEDS ORDERED: CIMZ200K SC (10:12)
[2020-02-05] MEDS ORDERED: PERC10TA26 PO (10:14)
[2020-02-05 11:10] VITALS: BP 124/72
[2020-02-06] MEDS ORDERED: SODIUM CHLORIDE 0.9% INJ 10 ML SYR IV SCH (09:00)
== END 2020-02-05 11:10 | disposition home or self-care (01) ==
LOC: M INFU 09:29
PROVIDERS: ATTEND Internal Medicine Gastroenterology
DX: E86.0 Dehydration (principal); R10.84 Generalized abdominal pain; K86.1 Other chronic pancreatitis; R19.7 Diarrhea, unspecified; Z88.5 Allergy status to narcotic agent; Z91.040 Latex allergy status; Z91.041 Radiographic dye allergy status
CPT/HCPCS: 96360; J1642

== ENCOUNTER 2020-02-12 09:50 | Outpatient (CLI) | payer MEDICARE, OTHER ==
[~2020-02-12] VITALS: Ht 162.6 cm; Wt 86.4 kg
[~2020-02-12 09:50] MED LIST changes: +CIMZ200K SC; +CLON-589 PO; +CLONI1TA PO; +NS 1,000 ML IV ONE; +SODIUM CHLORIDE 0.9% INJ 10 ML SYR IV SCH
[2020-02-12 10:16] VITALS: BP 115/55
== END 2020-02-12 11:30 | disposition home or self-care (01) ==
LOC: M INFU 09:50
PROVIDERS: ATTEND Internal Medicine Gastroenterology
DX: E86.0 Dehydration (principal); R10.84 Generalized abdominal pain; K86.1 Other chronic pancreatitis; R19.7 Diarrhea, unspecified; K51.20 Ulcerative (chronic) proctitis without complications; Z88.1 Allergy status to other antibiotic agents; Z88.5 Allergy status to narcotic agent; Z91.040 Latex allergy status; Z91.041 Radiographic dye allergy status
CPT/HCPCS: 96360; J1642

== ENCOUNTER 2020-02-19 08:26 | Outpatient (CLI) | payer MEDICARE, OTHER ==
[~2020-02-19] VITALS: Ht 162.6 cm; Wt 86.0 kg
[~2020-02-19 08:26] MED LIST changes: -PANT20TA2 PO; +PANT20TA6 PO; +SODIUM CHLORIDE 0.9% INJ 10 ML SYR IV PRN; -SODIUM CHLORIDE 0.9% INJ 10 ML SYR IV SCH
[2020-02-19 08:37] VITALS: BP 111/61
[2020-02-19] MEDS ORDERED: SODIUM CHLORIDE 0.9% INJ 10 ML SYR IV SCH (09:00)
[2020-02-19 10:31] VITALS: BP 99/55
== END 2020-02-19 10:30 | disposition home or self-care (01) ==
LOC: M INFU 08:26
PROVIDERS: ATTEND Internal Medicine Gastroenterology
DX: E86.0 Dehydration (principal); Z88.1 Allergy status to other antibiotic agents; Z88.5 Allergy status to narcotic agent; Z91.040 Latex allergy status; Z91.041 Radiographic dye allergy status
CPT/HCPCS: 96360; 96361; J1642

== ENCOUNTER 2020-02-26 09:56 | Outpatient (CLI) | payer MEDICARE, OTHER ==
[~2020-02-26] VITALS: Ht 162.6 cm; Wt 86.4 kg
[~2020-02-26 09:56] MED LIST changes: -NS 1,000 ML IV ONE; -SODIUM CHLORIDE 0.9% INJ 10 ML SYR IV PRN
[2020-02-26] MEDS ORDERED: SODIUM CHLORIDE 0.9% INJ 10 ML SYR IV PRN (10:15)
[2020-02-26] MEDS ORDERED: NS 1,000 ML IV ONE (10:15)
[2020-02-26 10:25] VITALS: BP 100/59
[2020-02-26 12:15] VITALS: BP 107/62
[2020-02-27] MEDS ORDERED: SODIUM CHLORIDE 0.9% INJ 10 ML SYR IV SCH (09:00)
== END 2020-02-26 12:15 | disposition home or self-care (01) ==
LOC: M INFU 09:56
PROVIDERS: ATTEND Internal Medicine Gastroenterology
DX: E86.0 Dehydration (principal); K51.20 Ulcerative (chronic) proctitis without complications; K86.1 Other chronic pancreatitis
CPT/HCPCS: 96360; 96361; J1642

== ENCOUNTER 2020-03-01 09:43 | Outpatient (CLI) | payer MEDICARE, OTHER ==
[~2020-03-01] VITALS: Ht 162.6 cm; Wt 86.3 kg
[~2020-03-01 09:43] MED LIST changes: +NS 1,000 ML IV ONE; +SODIUM CHLORIDE 0.9% INJ 10 ML SYR IV PRN; +SODIUM CHLORIDE 0.9% INJ 10 ML SYR IV SCH
[2020-03-01 10:08] VITALS: BP 102/56
[2020-03-01 11:14] VITALS: BP 94/54
[2020-03-02] MEDS ORDERED: SODIUM CHLORIDE 0.9% INJ 10 ML SYR IV SCH (09:00)
== END 2020-03-01 11:15 | disposition home or self-care (01) ==
LOC: M INFU 09:43
PROVIDERS: ATTEND Internal Medicine Gastroenterology
DX: E86.0 Dehydration (principal)
CPT/HCPCS: 96360; J1642

== ENCOUNTER → 2020-03-11 | Outpatient (CLI) | payer MEDICARE, OTHER ==
[~2020-03-11] MED LIST changes: +ACET-908 PO; +CETI10CA2 PO; +FLON1SPR NARES; +GUAI1SOL2 PO; +PSEU-52 PO; +TRAZ1TAB14
[2020-03-11 08:53] VITALS: BP 120/70
== END ==
LOC: M INFU 08:43
PROVIDERS: ATTEND Internal Medicine Gastroenterology
DX: E86.0 Dehydration (principal)
CPT/HCPCS: 96360; J1642

== ENCOUNTER 2020-03-18 11:00 | Outpatient (CLI) | payer MEDICARE, OTHER ==
[~2020-03-18 11:00] MED LIST changes: -ACET-908 PO; -CETI10CA2 PO; -FLON1SPR NARES; -GUAI1SOL2 PO; -NS 1,000 ML IV ONE; -PSEU-52 PO; -SODIUM CHLORIDE 0.9% INJ 10 ML SYR IV PRN; -SODIUM CHLORIDE 0.9% INJ 10 ML SYR IV SCH; -TRAZ1TAB14
[2020-03-18] MEDS ORDERED: SODIUM CHLORIDE 0.9% 1000ML ONE (11:30)
== END 2020-03-18 12:50 | disposition home or self-care (01) ==
LOC: M INFU 11:00
PROVIDERS: ATTEND Internal Medicine Gastroenterology
DX: E86.0 Dehydration (principal); K86.1 Other chronic pancreatitis; K51.20 Ulcerative (chronic) proctitis without complications; R10.84 Generalized abdominal pain; R19.7 Diarrhea, unspecified
CPT/HCPCS: 96360; J1642

== ENCOUNTER 2020-03-25 10:00 | Outpatient (CLI) | payer MEDICARE, OTHER | END 2020-03-25 11:55 | disposition home or self-care (01) | LOC: M INFU 10:00 | PROVIDERS: ATTEND Internal Medicine Gastroenterology | DX: E86.0 Dehydration (principal) | CPT/HCPCS: 96360; J1642 ==

== ENCOUNTER 2020-04-19 10:08 | Outpatient (CLI) | payer MEDICARE, OTHER ==
[~2020-04-19] VITALS: Ht 162.6 cm; Wt 86.4 kg
[2020-04-19 10:05] VITALS: BP 111/59
[~2020-04-19 10:08] MED LIST changes: -ACET-908 PO; -CETI10CA2 PO; -FLON1SPR NARES; -GUAI1SOL2 PO; +NS 1,000 ML IV SCH; -PSEU-52 PO; +SODIUM CHLORIDE 0.9% INJ 10 ML SYR IV PRN; +SODIUM CHLORIDE 0.9% INJ 10 ML SYR IV SCH; -TRAZ1TAB14
[2020-04-19 12:11] VITALS: BP 116/63
== END 2020-04-19 12:10 | disposition home or self-care (01) ==
LOC: M INFU 10:08
PROVIDERS: ATTEND Internal Medicine Gastroenterology
DX: E86.0 Dehydration (principal); K86.1 Other chronic pancreatitis

== ENCOUNTER → 2020-04-19 | Outpatient (CLI) | payer MEDICARE, OTHER ==
[~2020-04-19] MED LIST changes: +ACET-908 PO; +CETI10CA2 PO; +FLON1SPR NARES; +GUAI1SOL2 PO; +PSEU-52 PO; +TRAZ1TAB14
[2020-04-19 12:58] LABS: HEMATOCRIT 39.1 % (36.0-47.0); HEMOGLOBIN 12.7 g/dl (12.0-15.5); MEAN CORPUSCULAR HEMOGLOBIN 30.9 pg (27.0-33.0); MEAN CORPUSCULAR HGB CONC 32.5 g/dl (32.0-36.5); MEAN CORPUSCULAR VOLUME 95.1 fl (80.0-96.0); PLATELET COUNT, AUTOMATED 309 10^3/uL (150-450); RED BLOOD COUNT 4.11 10^6/uL (4.00-5.40); WHITE BLOOD COUNT 15.8 10^3/uL (4.0-10.0)
== END ==
LOC: M LAB 10:12
PROVIDERS: ATTEND Family Medicine
DX: E86.0 Dehydration (principal); R10.84 Generalized abdominal pain; K86.1 Other chronic pancreatitis; R19.7 Diarrhea, unspecified; K51.20 Ulcerative (chronic) proctitis without complications; L30.9 Dermatitis, unspecified

== ENCOUNTER 2020-04-23 09:53 | Outpatient (CLI) | payer MEDICARE, OTHER ==
[~2020-04-23] VITALS: Ht 162.6 cm; Wt 84.0 kg
[~2020-04-23 09:53] MED LIST changes: -SODIUM CHLORIDE 0.9% INJ 10 ML SYR IV PRN
[2020-04-23 09:55] VITALS: BP 109/66
[2020-04-23 11:50] VITALS: BP 100/55
== END 2020-04-23 11:55 | disposition home or self-care (01) ==
LOC: M INFU 09:53
PROVIDERS: ATTEND Internal Medicine Gastroenterology
DX: E86.0 Dehydration (principal); R10.84 Generalized abdominal pain; K86.1 Other chronic pancreatitis; R19.7 Diarrhea, unspecified; K51.20 Ulcerative (chronic) proctitis without complications; Z88.8 Allergy status to other drugs, medicaments and biological substances; Z91.040 Latex allergy status; Z91.048 Other nonmedicinal substance allergy status

== ENCOUNTER 2020-05-04 10:19 | Outpatient (CLI) | payer MEDICARE, OTHER ==
[~2020-05-04] VITALS: Ht 162.6 cm; Wt 81.8 kg
[~2020-05-04 10:19] MED LIST changes: -NS 1,000 ML IV SCH; +guaiFENesin ER 600 MG TAB PO SCH
[2020-05-04 10:25] VITALS: BP 116/69
[2020-05-04] MEDS ORDERED: NS 1,000 ML IV SCH (10:30)
[2020-05-04 11:37] LABS: HEMATOCRIT 39.5 % (36.0-47.0); HEMOGLOBIN 13.2 g/dl (12.0-15.5); MEAN CORPUSCULAR HGB CONC 33.4 g/dl (32.0-36.5); MEAN CORPUSCULAR VOLUME 92.7 fl (80.0-96.0); PLATELET COUNT, AUTOMATED 362 10^3/uL (150-450); RED BLOOD COUNT 4.26 10^6/uL (4.00-5.40); WHITE BLOOD COUNT 11.3 10^3/uL (4.0-10.0)
[2020-05-04 12:07] LABS: ALBUMIN 4.2 GM/DL (3.2-5.2); ALT/SGPT 29 U/L (12-78); BILIRUBIN,TOTAL 0.7 MG/DL (0.2-1.0); BLOOD UREA NITROGEN 12 MG/DL (7-18); CALCIUM LEVEL 8.6 MG/DL (8.5-10.1); CARBON DIOXIDE LEVEL 26 MEQ/L (21-32); CHLORIDE LEVEL 106 MEQ/L (98-107); CHOLESTEROL LEVEL 263 MG/DL (<200); CHOLESTEROL RISK RATIO 5.717 (<5); GLOMERULAR FILTRATION RATE > 60.0 (>58); GLUCOSE, FASTING 134 MG/DL (70-100); HDL CHOLESTEROL 46 MG/DL (>40); LIPASE 48 U/L (73-393); NON-HDL-C 217 MG/DL; POTASSIUM SERUM 3.8 MEQ/L (3.5-5.1); SODIUM LEVEL 137 MEQ/L (136-145); TRIGLYCERIDES LEVEL 434 MG/DL (<150)
[2020-05-04 12:24] LABS: ERYTHROCYTE SEDIMENTATION RATE 22 mm/hr (0-20)
[2020-05-04 12:25] VITALS: BP 122/72
== END 2020-05-04 12:30 | disposition home or self-care (01) ==
LOC: M INFU 10:19
PROVIDERS: ATTEND Internal Medicine Gastroenterology
DX: E86.0 Dehydration (principal); R10.84 Generalized abdominal pain; K86.1 Other chronic pancreatitis; R19.7 Diarrhea, unspecified; K51.20 Ulcerative (chronic) proctitis without complications; Z88.6 Allergy status to analgesic agent; Z88.8 Allergy status to other drugs, medicaments and biological substances; Z91.040 Latex allergy status; Z91.041 Radiographic dye allergy status

== ENCOUNTER 2020-05-06 09:17 | Outpatient (CLI) | payer MEDICARE, OTHER ==
[~2020-05-06] VITALS: Ht 162.6 cm; Wt 81.8 kg
[~2020-05-06 09:17] MED LIST changes: -guaiFENesin ER 600 MG TAB PO SCH
[2020-05-06] MEDS ORDERED: NS 1,000 ML IV SCH (09:30)
[2020-05-06 09:42] VITALS: BP 99/59
[2020-05-06 11:00] VITALS: BP 102/55
== END 2020-05-06 11:00 | disposition home or self-care (01) ==
LOC: M INFU 09:17
PROVIDERS: ATTEND Internal Medicine Gastroenterology
DX: E86.0 Dehydration (principal); K51.20 Ulcerative (chronic) proctitis without complications; K86.1 Other chronic pancreatitis; R19.7 Diarrhea, unspecified; Z88.8 Allergy status to other drugs, medicaments and biological substances; Z91.040 Latex allergy status; Z91.041 Radiographic dye allergy status

== ENCOUNTER 2020-05-11 10:20 | Outpatient (CLI) | payer MEDICARE, OTHER ==
[~2020-05-11] VITALS: Ht 162.6 cm; Wt 86.1 kg
[2020-05-11 10:05] VITALS: BP 120/69
[2020-05-11] MEDS ORDERED: NS 1,000 ML IV SCH (10:30)
[2020-05-11 12:00] VITALS: BP 111/79
== END 2020-05-11 12:00 | disposition home or self-care (01) ==
LOC: M INFU 10:20
PROVIDERS: ATTEND Internal Medicine Gastroenterology
DX: E86.0 Dehydration (principal); K51.20 Ulcerative (chronic) proctitis without complications; K86.1 Other chronic pancreatitis; R19.7 Diarrhea, unspecified; Z88.5 Allergy status to narcotic agent; Z91.040 Latex allergy status; Z91.041 Radiographic dye allergy status

== ENCOUNTER 2020-05-18 10:20 | Outpatient (CLI) | payer MEDICARE, OTHER ==
[~2020-05-18] VITALS: Ht 162.6 cm; Wt 86.1 kg
[2020-05-18] MEDS ORDERED: NS 1,000 ML IV SCH (10:30)
[2020-05-18 10:43] VITALS: BP 127/76
[2020-05-18 12:08] VITALS: BP 122/70
== END 2020-05-18 12:10 | disposition home or self-care (01) ==
LOC: M INFU 10:20
PROVIDERS: ATTEND Internal Medicine Gastroenterology
DX: E86.0 Dehydration (principal); Z88.8 Allergy status to other drugs, medicaments and biological substances; Z91.040 Latex allergy status; Z91.041 Radiographic dye allergy status
CPT/HCPCS: 96360; J1642

== ENCOUNTER 2020-05-25 10:23 | Outpatient (CLI) | payer MEDICARE, OTHER ==
[~2020-05-25] VITALS: Ht 162.6 cm; Wt 86.1 kg
[2020-05-25 10:39] VITALS: BP 116/72
[2020-05-25] MEDS ORDERED: SODIUM CHLORIDE 0.9% INJ 10 ML SYR IV PRN (11:00)
[2020-05-25] MEDS ORDERED: NS 1,000 ML IV SCH (11:00)
[2020-05-25 12:00] VITALS: BP 132/75
[2020-05-26] MEDS ORDERED: SODIUM CHLORIDE 0.9% INJ 10 ML SYR IV SCH (09:00)
== END 2020-05-25 12:05 | disposition home or self-care (01) ==
LOC: M INFU 10:23
PROVIDERS: ATTEND Internal Medicine Gastroenterology
DX: E86.0 Dehydration (principal); K51.20 Ulcerative (chronic) proctitis without complications; K86.1 Other chronic pancreatitis; R19.7 Diarrhea, unspecified; Z88.1 Allergy status to other antibiotic agents; Z88.5 Allergy status to narcotic agent; Z91.041 Radiographic dye allergy status; Z91.040 Latex allergy status
CPT/HCPCS: 96360; J1642

== ENCOUNTER 2020-06-01 08:53 | Outpatient (CLI) | payer MEDICARE, OTHER ==
[~2020-06-01] VITALS: Ht 162.6 cm; Wt 86.1 kg
[~2020-06-01 08:53] MED LIST changes: -SODIUM CHLORIDE 0.9% INJ 10 ML SYR IV SCH
[2020-06-01] MEDS ORDERED: SODIUM CHLORIDE 0.9% INJ 10 ML SYR IV PRN (09:00)
[2020-06-01] MEDS ORDERED: NS 1,000 ML IV SCH (09:00)
[2020-06-01] MEDS ORDERED: SODIUM CHLORIDE 0.9% INJ 10 ML SYR IV SCH ×2 (09:00)
[2020-06-01 09:14] VITALS: BP 144/74
[2020-06-01 10:19] VITALS: BP 115/71
== END 2020-06-01 10:25 | disposition home or self-care (01) ==
LOC: M INFU 08:53
PROVIDERS: ATTEND Internal Medicine Gastroenterology
DX: E86.0 Dehydration (principal); K51.20 Ulcerative (chronic) proctitis without complications; K86.1 Other chronic pancreatitis; R19.7 Diarrhea, unspecified; Z88.1 Allergy status to other antibiotic agents; Z88.5 Allergy status to narcotic agent; Z91.040 Latex allergy status; Z91.041 Radiographic dye allergy status
CPT/HCPCS: 96360; J1642

== ENCOUNTER 2020-06-03 09:22 | Emergency (ER) | payer MEDICARE, OTHER ==
[~2020-06-03] VITALS: Ht 162.6 cm; Wt 82.9 kg
[2020-06-03] MEDS ORDERED: TRAZ1TAB14 (09:32)
[2020-06-03 12:04] LABS: BASO # 0.1 10^3/uL (0.0-0.2); BASO % 0.5 % (0.0-1.0); EOS # 0.1 10^3/uL (0.0-0.5); EOS % 0.5 % (0.0-3.0); HEMATOCRIT 39.5 % (36.0-47.0); HEMOGLOBIN 12.9 g/dl (12.0-15.5); LYMPH # 3.2 10^3/uL (1.5-5.0); LYMPH % 29.6 % (24.0-44.0); MEAN CORPUSCULAR HEMOGLOBIN 30.9 pg (27.0-33.0); MEAN CORPUSCULAR HGB CONC 32.7 g/dl (32.0-36.5); MEAN CORPUSCULAR VOLUME 94.7 fl (80.0-96.0); MONO # 0.5 10^3/uL (0.0-0.8); MONO % 4.7 % (0.0-5.0); NEUTROPHILS # 6.9 10^3/uL (1.5-8.5); NEUTROPHILS % 64.3 % (36.0-66.0); PLATELET COUNT, AUTOMATED 370 10^3/uL (150-450); RED BLOOD COUNT 4.17 10^6/uL (4.00-5.40); WHITE BLOOD COUNT 10.8 10^3/uL (4.0-10.0)
[2020-06-03 12:23] LABS: ERYTHROCYTE SEDIMENTATION RATE 24 mm/hr (0-20)
[2020-06-03 12:34] LABS: ALT/SGPT 50 U/L (12-78); BILIRUBIN,DIRECT 0.1 MG/DL (0.0-0.2); BILIRUBIN,TOTAL 0.5 MG/DL (0.2-1.0); BLOOD UREA NITROGEN 8 MG/DL (7-18); CALCIUM LEVEL 9.3 MG/DL (8.5-10.1); CARBON DIOXIDE LEVEL 26 MEQ/L (21-32); CHLORIDE LEVEL 107 MEQ/L (98-107); CREATININE FOR GFR 0.67 MG/DL (0.55-1.30); GLOMERULAR FILTRATION RATE > 60.0 (>58); GLUCOSE, FASTING 95 MG/DL (70-100); POTASSIUM SERUM 3.9 MEQ/L (3.5-5.1); SODIUM LEVEL 139 MEQ/L (136-145); TOTAL PROTEIN 7.9 GM/DL (6.4-8.2)
[2020-06-03] MEDS ORDERED: cefTRIAXone SOD 1 GM in D5W MINI-BAG PLUS 50 ML IV ONE (13:00)
[2020-06-03 14:23] VITALS: BP 127/69
== END 2020-06-03 14:57 | disposition home or self-care (01) ==
LOC: M ED 09:22
DX: L03.313 Cellulitis of chest wall (principal); Z95.828 Presence of other vascular implants and grafts; Z86.14 Personal history of Methicillin resistant Staphylococcus aureus infection; Z86.61 Personal history of infections of the central nervous system; Z79.899 Other long term (current) drug therapy; Z91.041 Radiographic dye allergy status; Z91.89 Other specified personal risk factors, not elsewhere classified; Z88.6 Allergy status to analgesic agent; Z91.040 Latex allergy status; Z88.5 Allergy status to narcotic agent
CPT/HCPCS: 80048; 80076; 85025; 85652; 86140; 96365; 99283; J0696

== ENCOUNTER 2020-06-10 12:33 | Outpatient (CLI) | payer MEDICARE, OTHER ==
[~2020-06-10] VITALS: Ht 162.6 cm; Wt 86.1 kg
[~2020-06-10 12:33] MED LIST changes: +NS 1,000 ML IV SCH; +SODIUM CHLORIDE 0.9% INJ 10 ML SYR IV PRN; +SODIUM CHLORIDE 0.9% INJ 10 ML SYR IV SCH; +TRAZ1TAB14
[2020-06-10 12:35] VITALS: BP 115/69
[2020-06-10 14:35] VITALS: BP 107/59
== END 2020-06-10 14:35 | disposition home or self-care (01) ==
LOC: M INFU 12:33
PROVIDERS: ATTEND Internal Medicine Gastroenterology
DX: E86.0 Dehydration (principal); K51.20 Ulcerative (chronic) proctitis without complications
CPT/HCPCS: 96360; 96361; J1642

== ENCOUNTER → 2020-06-15 | Outpatient (CLI) | payer MEDICARE, OTHER ==
[~2020-06-15] MED LIST changes: +ACET-908 PO; +CETI10CA2 PO; +FLON1SPR NARES; +GUAI1SOL2 PO; +PSEU-52 PO; -SODIUM CHLORIDE 0.9% INJ 10 ML SYR IV PRN
== END ==
LOC: M INFU 09:00
PROVIDERS: ATTEND Internal Medicine Gastroenterology
DX: E86.0 Dehydration (principal); K51.20 Ulcerative (chronic) proctitis without complications; K86.1 Other chronic pancreatitis

== ENCOUNTER 2020-06-22 09:30 | Outpatient (CLI) | payer MEDICARE, OTHER ==
[~2020-06-22] VITALS: Ht 162.6 cm; Wt 86.1 kg
[~2020-06-22 09:30] MED LIST changes: -ACET-908 PO; -CETI10CA2 PO; -FLON1SPR NARES; +GABA-282 PO; -GABA-843 PO; -GUAI1SOL2 PO; -PSEU-52 PO
[2020-06-22 09:40] VITALS: BP 112/74
== END 2020-06-22 11:25 | disposition home or self-care (01) ==
LOC: M INFU 09:30
PROVIDERS: ATTEND Internal Medicine Gastroenterology
DX: E86.0 Dehydration (principal); Z88.6 Allergy status to analgesic agent; Z91.048 Other nonmedicinal substance allergy status; Z91.040 Latex allergy status

== ENCOUNTER 2020-06-27 21:06 | Emergency (ER) | payer MEDICARE, OTHER ==
[~2020-06-27] VITALS: Ht 162.6 cm; Wt 81.8 kg
[~2020-06-27 21:06] MED LIST changes: -GABA-282 PO; +GABA-843 PO; -NS 1,000 ML IV SCH; -SODIUM CHLORIDE 0.9% INJ 10 ML SYR IV SCH
[2020-06-27] MEDS ORDERED: MUCI600T31 PO (21:14)
[2020-06-27] MEDS ORDERED: PSEU-52 PO (21:14)
[2020-06-27] MEDS ORDERED: ACET-908 PO ×2 (21:14)
[2020-06-27] MEDS ORDERED: guaiFENesin/CODEINE SYRUP 5 ML UDC PO ONE (21:45)
[2020-06-27] MEDS ORDERED: NS 1,000 ML IV ONE (21:45)
[2020-06-27 23:00] VITALS: BP 104/71
[2020-06-27] MEDS ORDERED: FLON1SPR NARES (23:02)
[2020-06-27] MEDS ORDERED: GUAI1SOL2 PO (23:02)
[2020-06-27] MEDS ORDERED: CETI10CA2 PO (23:02)
== END 2020-06-27 23:22 | disposition home or self-care (01) ==
LOC: M ED 21:06
DX: J30.9 Allergic rhinitis, unspecified (principal); R05 Cough; E78.5 Hyperlipidemia, unspecified; Z79.899 Other long term (current) drug therapy; Z91.040 Latex allergy status; Z91.89 Other specified personal risk factors, not elsewhere classified; Z88.6 Allergy status to analgesic agent; Z91.041 Radiographic dye allergy status; Z88.5 Allergy status to narcotic agent; Z88.8 Allergy status to other drugs, medicaments and biological substances

== ENCOUNTER 2020-06-29 08:46 | Outpatient (CLI) | payer MEDICARE, OTHER ==
[~2020-06-29] VITALS: Ht 162.6 cm; Wt 86.1 kg
[~2020-06-29 08:46] MED LIST changes: +ACET-908 PO; +CETI10CA2 PO; +FLON1SPR NARES; +GUAI1SOL2 PO; +PSEU-52 PO
[2020-06-29 08:50] VITALS: BP 118/72
[2020-06-29] MEDS ORDERED: NS 1,000 ML IV SCH (09:00)
[2020-06-29] MEDS ORDERED: SODIUM CHLORIDE 0.9% INJ 10 ML SYR IV SCH (09:00)
[2020-06-29 09:17] LABS: HEMATOCRIT 38.9 % (36.0-47.0); HEMOGLOBIN 12.5 g/dl (12.0-15.5); MEAN CORPUSCULAR HGB CONC 32.1 g/dl (32.0-36.5); MEAN CORPUSCULAR VOLUME 93.5 fl (80.0-96.0); PLATELET COUNT, AUTOMATED 367 10^3/uL (150-450); RED BLOOD COUNT 4.16 10^6/uL (4.00-5.40); WHITE BLOOD COUNT 12.5 10^3/uL (4.0-10.0)
[2020-06-29 09:42] LABS: ALBUMIN 3.9 GM/DL (3.2-5.2); ALT/SGPT 28 U/L (12-78); BILIRUBIN,TOTAL 0.4 MG/DL (0.2-1.0); BLOOD UREA NITROGEN 10 MG/DL (7-18); CALCIUM LEVEL 9.2 MG/DL (8.5-10.1); CARBON DIOXIDE LEVEL 25 MEQ/L (21-32); CHLORIDE LEVEL 108 MEQ/L (98-107); CHOLESTEROL LEVEL 277 MG/DL (<200); CHOLESTEROL RISK RATIO 6.925 (<5); CREATININE FOR GFR 0.68 MG/DL (0.55-1.30); GLOMERULAR FILTRATION RATE > 60.0 (>58); GLUCOSE, FASTING 107 MG/DL (70-100); HDL CHOLESTEROL 40 MG/DL (>40); LDL CHOLESTEROL 170 MG/DL (<100); LIPASE 51 U/L (73-393); NON-HDL-C 237 MG/DL; SODIUM LEVEL 138 MEQ/L (136-145); TOTAL PROTEIN 7.5 GM/DL (6.4-8.2); TRIGLYCERIDES LEVEL 335 MG/DL (<150)
[2020-06-29 10:04] LABS: ERYTHROCYTE SEDIMENTATION RATE 30 mm/hr (0-20)
[2020-06-29 10:50] VITALS: BP 113/67
== END 2020-06-29 11:00 | disposition home or self-care (01) ==
LOC: M INFU 08:46
PROVIDERS: ATTEND Internal Medicine Gastroenterology
DX: K51.20 Ulcerative (chronic) proctitis without complications (principal); E86.0 Dehydration; K86.1 Other chronic pancreatitis; R19.7 Diarrhea, unspecified; Z88.6 Allergy status to analgesic agent; Z88.8 Allergy status to other drugs, medicaments and biological substances; Z91.048 Other nonmedicinal substance allergy status; Z91.040 Latex allergy status
CPT/HCPCS: 36591; 80053; 80061; 83690; 85027; 85652; 86140; 96360; 96361; J1642

== ENCOUNTER 2020-07-08 13:34 | Outpatient (CLI) | payer MEDICARE, OTHER ==
[~2020-07-08] VITALS: Ht 162.6 cm; Wt 86.1 kg
[~2020-07-08 13:34] MED LIST changes: +NS 1,000 ML IV SCH; +SODIUM CHLORIDE 0.9% INJ 10 ML SYR IV SCH
[2020-07-08 13:49] VITALS: BP 143/70
[2020-07-08 15:00] VITALS: BP 113/65
== END 2020-07-08 15:10 | disposition home or self-care (01) ==
LOC: M INFU 13:34
PROVIDERS: ATTEND Internal Medicine Gastroenterology
DX: E86.0 Dehydration (principal); K51.20 Ulcerative (chronic) proctitis without complications; K86.1 Other chronic pancreatitis; R19.7 Diarrhea, unspecified; Z88.8 Allergy status to other drugs, medicaments and biological substances; Z91.048 Other nonmedicinal substance allergy status; Z91.040 Latex allergy status
CPT/HCPCS: 96360; J1642

== ENCOUNTER 2020-07-23 10:50 | Outpatient (CLI) | payer MEDICARE, OTHER ==
[~2020-07-23] VITALS: Ht 162.6 cm; Wt 86.1 kg
[~2020-07-23 10:50] MED LIST changes: +SODIUM CHLORIDE 0.9% INJ 10 ML SYR IV PRN
[2020-07-23 11:00] VITALS: BP 128/70
[2020-07-23 11:21] LABS: HEMATOCRIT 39.2 % (36.0-47.0); HEMOGLOBIN 12.8 g/dl (12.0-15.5); MEAN CORPUSCULAR HEMOGLOBIN 30.5 pg (27.0-33.0); MEAN CORPUSCULAR HGB CONC 32.7 g/dl (32.0-36.5); MEAN CORPUSCULAR VOLUME 93.6 fl (80.0-96.0); PLATELET COUNT, AUTOMATED 365 10^3/uL (150-450); RED BLOOD COUNT 4.19 10^6/uL (4.00-5.40); WHITE BLOOD COUNT 12.6 10^3/uL (4.0-10.0)
[2020-07-23 11:40] LABS: ERYTHROCYTE SEDIMENTATION RATE 33 mm/hr (0-20)
[2020-07-23 11:50] LABS: ALBUMIN 4.1 GM/DL (3.2-5.2); ALT/SGPT 36 U/L (12-78); BILIRUBIN,TOTAL 0.3 MG/DL (0.2-1.0); BLOOD UREA NITROGEN 12 MG/DL (7-18); CARBON DIOXIDE LEVEL 26 MEQ/L (21-32); CHLORIDE LEVEL 107 MEQ/L (98-107); CHOLESTEROL LEVEL 348 MG/DL (<200); CHOLESTEROL RISK RATIO 8.285 (<5); CREATININE FOR GFR 0.71 MG/DL (0.55-1.30); GLOMERULAR FILTRATION RATE > 60.0 (>58); GLUCOSE, FASTING 87 MG/DL (70-100); HDL CHOLESTEROL 42 MG/DL (>40); LIPASE 194 U/L (73-393); NON-HDL-C 306 MG/DL; SODIUM LEVEL 137 MEQ/L (136-145); TOTAL PROTEIN 7.8 GM/DL (6.4-8.2); TRIGLYCERIDES LEVEL 651 MG/DL (<150)
[2020-07-23 12:10] VITALS: BP 116/78
== END 2020-07-23 12:15 | disposition home or self-care (01) ==
LOC: M INFU 10:50
PROVIDERS: ATTEND Internal Medicine Gastroenterology
DX: K51.20 Ulcerative (chronic) proctitis without complications (principal); E86.0 Dehydration; K86.1 Other chronic pancreatitis; R19.7 Diarrhea, unspecified
CPT/HCPCS: 36591; 80053; 80061; 83690; 85027; 85652; 86140; 96360; J1642

== ENCOUNTER 2020-08-03 09:42 | Outpatient (CLI) | payer MEDICARE, OTHER ==
[~2020-08-03] VITALS: Ht 162.6 cm; Wt 84.0 kg
[2020-08-03 09:50] VITALS: BP 131/79
[2020-08-03 11:15] VITALS: BP 115/74
== END 2020-08-03 11:15 | disposition home or self-care (01) ==
LOC: M INFU 09:42
PROVIDERS: ATTEND Internal Medicine Gastroenterology
DX: E86.0 Dehydration (principal); K51.20 Ulcerative (chronic) proctitis without complications; K86.1 Other chronic pancreatitis; R19.7 Diarrhea, unspecified; Z88.6 Allergy status to analgesic agent; Z91.041 Radiographic dye allergy status; Z91.048 Other nonmedicinal substance allergy status
CPT/HCPCS: 96360; J1642

== ENCOUNTER 2020-08-10 10:39 | Outpatient (CLI) | payer MEDICARE, OTHER ==
[~2020-08-10] VITALS: Ht 193 cm; Wt 84.0 kg
[~2020-08-10 10:39] MED LIST changes: -SODIUM CHLORIDE 0.9% INJ 10 ML SYR IV PRN
[2020-08-10 10:45] VITALS: BP 111/70
[2020-08-10 12:00] VITALS: BP 127/70
== END 2020-08-10 12:00 | disposition home or self-care (01) ==
LOC: M INFU 10:39
PROVIDERS: ATTEND Internal Medicine Gastroenterology
DX: E86.0 Dehydration (principal); K51.20 Ulcerative (chronic) proctitis without complications; K86.1 Other chronic pancreatitis; R19.7 Diarrhea, unspecified; Z88.6 Allergy status to analgesic agent; Z91.048 Other nonmedicinal substance allergy status
CPT/HCPCS: 96360; J1642

== ENCOUNTER 2020-08-24 10:06 | Outpatient (CLI) | payer MEDICARE, OTHER ==
[~2020-08-24] VITALS: Ht 162.6 cm; Wt 86.3 kg
[~2020-08-24 10:06] MED LIST changes: -NS 1,000 ML IV SCH; +SODIUM CHLORIDE 0.9% INJ 10 ML SYR IV PRN
[2020-08-24] MEDS ORDERED: NS 1,000 ML IV SCH (10:30)
[2020-08-24 11:06] VITALS: BP 129/58
[2020-08-24 11:45] VITALS: BP 114/71
[2020-08-25] MEDS ORDERED: SODIUM CHLORIDE 0.9% INJ 10 ML SYR IV SCH (09:00)
== END 2020-08-24 11:45 | disposition home or self-care (01) ==
LOC: M INFU 10:06
PROVIDERS: ATTEND Internal Medicine Gastroenterology
DX: E86.0 Dehydration (principal); Z88.6 Allergy status to analgesic agent; Z91.040 Latex allergy status
CPT/HCPCS: 96360; J1642

== ENCOUNTER 2020-08-31 10:09 | Outpatient (CLI) | payer MEDICARE, OTHER ==
[~2020-08-31] VITALS: Ht 162.6 cm; Wt 86.4 kg
[~2020-08-31 10:09] MED LIST changes: +GABA-282 PO; -GABA-843 PO; +NS 1,000 ML IV SCH
[2020-08-31 10:43] VITALS: BP 115/59
[2020-08-31 11:57] VITALS: BP 118/66
== END 2020-08-31 12:00 | disposition home or self-care (01) ==
LOC: M INFU 10:09
PROVIDERS: ATTEND Internal Medicine Gastroenterology
DX: E86.0 Dehydration (principal); K51.20 Ulcerative (chronic) proctitis without complications; K86.1 Other chronic pancreatitis; R19.7 Diarrhea, unspecified; Z88.6 Allergy status to analgesic agent; Z91.040 Latex allergy status; Z91.041 Radiographic dye allergy status
CPT/HCPCS: 96360; J1642

== ENCOUNTER 2020-09-09 09:41 | Outpatient (CLI) | payer MEDICARE, OTHER ==
[~2020-09-09] VITALS: Ht 162.6 cm; Wt 86.1 kg
[~2020-09-09 09:41] MED LIST changes: -NS 1,000 ML IV SCH; -SODIUM CHLORIDE 0.9% INJ 10 ML SYR IV PRN
[2020-09-09] MEDS ORDERED: NS 1,000 ML IV SCH (10:00)
== END 2020-09-09 11:05 | disposition home or self-care (01) ==
LOC: M INFU 09:41
PROVIDERS: ATTEND Internal Medicine Gastroenterology
DX: E86.0 Dehydration (principal); Z88.6 Allergy status to analgesic agent; Z88.8 Allergy status to other drugs, medicaments and biological substances; Z91.041 Radiographic dye allergy status; Z91.048 Other nonmedicinal substance allergy status; Z91.040 Latex allergy status
CPT/HCPCS: 96360; J1642

== ENCOUNTER 2020-09-14 10:32 | Outpatient (CLI) | payer MEDICARE, OTHER ==
[~2020-09-14] VITALS: Ht 162.6 cm; Wt 86.1 kg
[~2020-09-14 10:32] MED LIST changes: +NS 1,000 ML IV SCH
[2020-09-14 10:48] VITALS: BP 141/86
[2020-09-14 12:06] VITALS: BP 122/70
== END 2020-09-14 12:00 | disposition home or self-care (01) ==
LOC: M INFU 10:32
PROVIDERS: ATTEND Internal Medicine Gastroenterology
DX: E86.0 Dehydration (principal); Z88.6 Allergy status to analgesic agent; Z91.040 Latex allergy status; Z91.041 Radiographic dye allergy status
CPT/HCPCS: 96360; J1642

== ENCOUNTER 2020-09-23 10:02 | Outpatient (CLI) | payer MEDICARE, OTHER ==
[~2020-09-23] VITALS: Ht 162.6 cm; Wt 86.1 kg
[2020-09-23 10:22] VITALS: BP 110/70
[2020-09-23 11:30] VITALS: BP 132/63
== END 2020-09-23 11:30 | disposition home or self-care (01) ==
LOC: M INFU 10:02
PROVIDERS: ATTEND Internal Medicine Gastroenterology
DX: E86.0 Dehydration (principal); K51.20 Ulcerative (chronic) proctitis without complications; K86.1 Other chronic pancreatitis; R19.7 Diarrhea, unspecified; Z88.6 Allergy status to analgesic agent; Z91.041 Radiographic dye allergy status; Z91.048 Other nonmedicinal substance allergy status; Z91.040 Latex allergy status
CPT/HCPCS: 96360; J1642

== ENCOUNTER 2020-09-26 18:49 | Emergency (ER) | payer MEDICARE, OTHER ==
[~2020-09-26] VITALS: Ht 162.6 cm; Wt 91.9 kg
[~2020-09-26 18:49] MED LIST changes: -NS 1,000 ML IV SCH; -SODIUM CHLORIDE 0.9% INJ 10 ML SYR IV SCH
--- NOTE | 2020-09-26 20:31 | REPVR ---
PROCEDURE INFORMATION: Exam: XR Chest, 2 Views Exam date and time: 09/26/2020 8:02 PM Age: 40 years old Clinical indication: Right-sided chest pain; Additional info: Right sided chest pain TECHNIQUE: Imaging protocol: XR of the chest Views: 2 views. COMPARISON: CR Chest, 2 view PA, Lat 05/09/2019 11:23 AM FINDINGS: Tubes, catheters and devices: Right-sided medication port, tip projecting over the lower SVC. Lungs: No focal areas of consolidation. Pleural spaces: Unremarkable. No pleural effusion. No pneumothorax. Heart/Mediastinum: Cardiac and mediastinal silhouettes are unremarkable. Bones/joints: No acute osseus lesion or fracture. IMPRESSION: No acute cardiopulmonary findings. Electronically signed by: Anil Matos On 09/26/2020 20:31:30 PM
[2020-09-26 20:42] LABS: HEMOGLOBIN 12.1 g/dl (12.0-15.5); MEAN CORPUSCULAR HEMOGLOBIN 30.4 pg (27.0-33.0); MEAN CORPUSCULAR HGB CONC 32.7 g/dl (32.0-36.5); PLATELET COUNT, AUTOMATED 319 10^3/uL (150-450); RED BLOOD COUNT 3.98 10^6/uL (4.00-5.40)
[2020-09-26 20:52] LABS: WHITE BLOOD COUNT 14.2 10^3/uL (4.0-10.0)
[2020-09-26] MEDS ORDERED: SODIUM CHLORIDE 0.9% INJ 10 ML SYR IV ONE (21:00)
[2020-09-26 21:16] LABS: ATYPICAL LYMPH 6 % (0-5); EOSINOPHILS 1 % (0-3); LYMPHOCYTES 36 % (16-44); MONOCYTES 4 % (0-5); NEUTROPHILS 53 % (28-66)
[2020-09-26 21:18] LABS: PLATELET ESTIMATE NORMAL (NORMAL)
[2020-09-26 21:22] VITALS: BP 117/71
[2020-09-27] MEDS ORDERED: SODIUM CHLORIDE 0.9% INJ 10 ML SYR IV SCH (09:00)
== END 2020-09-26 21:27 | disposition home or self-care (01) ==
LOC: M ED 18:49
DX: S29.019A Strain of muscle and tendon of unspecified wall of thorax, initial encounter (principal); S46.911A Strain of unspecified muscle, fascia and tendon at shoulder and upper arm level, right arm, initial encounter; D72.829 Elevated white blood cell count, unspecified; X50.0XXA Overexertion from strenuous movement or load, initial encounter; Y92.79 Other farm location as the place of occurrence of the external cause; Y93.89 Activity, other specified; Y99.0 Civilian activity done for income or pay; G43.909 Migraine, unspecified, not intractable, without status migrainosus; E78.00 Pure hypercholesterolemia, unspecified; I95.9 Hypotension, unspecified; Z87.891 Personal history of nicotine dependence; H93.19 Tinnitus, unspecified ear; K21.9 Gastro-esophageal reflux disease without esophagitis; K44.9 Diaphragmatic hernia without obstruction or gangrene; Z90.49 Acquired absence of other specified parts of digestive tract; K51.90 Ulcerative colitis, unspecified, without complications; Z87.442 Personal history of urinary calculi; N97.1 Female infertility of tubal origin; M48.00 Spinal stenosis, site unspecified; M54.9 Dorsalgia, unspecified; M25.559 Pain in unspecified hip; M25.569 Pain in unspecified knee; Z86.32 Personal history of gestational diabetes; F41.9 Anxiety disorder, unspecified; F32.9 Major depressive disorder, single episode, unspecified; F43.10 Post-traumatic stress disorder, unspecified; Z95.9 Presence of cardiac and vascular implant and graft, unspecified; Z79.899 Other long term (current) drug therapy; Z91.041 Radiographic dye allergy status; Z91.89 Other specified personal risk factors, not elsewhere classified; Z88.6 Allergy status to analgesic agent; Z91.040 Latex allergy status; Z88.8 Allergy status to other drugs, medicaments and biological substances; Z88.5 Allergy status to narcotic agent
CPT/HCPCS: 71046; 80047; 85025; 87040; 99283; J1642

== ENCOUNTER 2020-09-30 10:19 | Outpatient (CLI) | payer MEDICARE, OTHER ==
[~2020-09-30] VITALS: Ht 162.6 cm; Wt 86.1 kg
[~2020-09-30 10:19] MED LIST changes: +SODIUM CHLORIDE 0.9% INJ 10 ML SYR IV SCH
[2020-09-30 10:25] VITALS: BP 121/62
[2020-09-30] MEDS ORDERED: NS 1,000 ML IV SCH (10:30)
[2020-09-30 11:52] VITALS: BP 125/81
== END 2020-09-30 12:00 | disposition home or self-care (01) ==
LOC: M INFU 10:19
PROVIDERS: ATTEND Internal Medicine Gastroenterology
DX: E86.0 Dehydration (principal); K51.20 Ulcerative (chronic) proctitis without complications; K86.1 Other chronic pancreatitis; R19.7 Diarrhea, unspecified; Z88.6 Allergy status to analgesic agent; Z91.041 Radiographic dye allergy status; Z91.048 Other nonmedicinal substance allergy status
CPT/HCPCS: 96360; J1642

== ENCOUNTER 2020-10-07 14:38 | Outpatient (CLI) | payer MEDICARE, OTHER ==
[~2020-10-07] VITALS: Ht 162.6 cm; Wt 86.1 kg
[~2020-10-07 14:38] MED LIST changes: +NS 1,000 ML IV SCH
[2020-10-07 14:40] VITALS: BP 107/65
[2020-10-07 15:11] LABS: HEMATOCRIT 37.2 % (36.0-47.0); HEMOGLOBIN 12.4 g/dl (12.0-15.5); MEAN CORPUSCULAR HEMOGLOBIN 31.3 pg (27.0-33.0); MEAN CORPUSCULAR HGB CONC 33.3 g/dl (32.0-36.5); MEAN CORPUSCULAR VOLUME 93.9 fl (80.0-96.0); PLATELET COUNT, AUTOMATED 320 10^3/uL (150-450); RED BLOOD COUNT 3.96 10^6/uL (4.00-5.40); WHITE BLOOD COUNT 14.1 10^3/uL (4.0-10.0)
[2020-10-07 15:35] LABS: ERYTHROCYTE SEDIMENTATION RATE 31 mm/hr (0-20)
[2020-10-07 15:42] LABS: ALBUMIN 3.9 GM/DL (3.2-5.2); ALT/SGPT 27 U/L (12-78); BILIRUBIN,TOTAL 0.2 MG/DL (0.2-1.0); BLOOD UREA NITROGEN 19 MG/DL (7-18); CALCIUM LEVEL 9.1 MG/DL (8.5-10.1); CARBON DIOXIDE LEVEL 24 MEQ/L (21-32); CHLORIDE LEVEL 105 MEQ/L (98-107); CHOLESTEROL LEVEL 288 MG/DL (<200); CREATININE FOR GFR 0.72 MG/DL (0.55-1.30); GLOMERULAR FILTRATION RATE > 60.0 (>58); GLUCOSE, FASTING 126 MG/DL (70-100); HDL CHOLESTEROL 40 MG/DL (>40); LIPASE 86 U/L (73-393); NON-HDL-C 248 MG/DL; POTASSIUM SERUM 3.9 MEQ/L (3.5-5.1); SODIUM LEVEL 137 MEQ/L (136-145); TOTAL PROTEIN 7.5 GM/DL (6.4-8.2); TRIGLYCERIDES LEVEL 851 MG/DL (<150)
[2020-10-07 16:15] VITALS: BP 105/59
== END 2020-10-07 16:15 | disposition home or self-care (01) ==
LOC: M INFU 14:38
PROVIDERS: ATTEND Internal Medicine Gastroenterology
DX: E86.0 Dehydration (principal); K51.20 Ulcerative (chronic) proctitis without complications; K86.1 Other chronic pancreatitis; R19.7 Diarrhea, unspecified
CPT/HCPCS: 36591; 80053; 80061; 83690; 85027; 85652; 86140; 96360; J1642

== ENCOUNTER 2020-10-15 10:40 | Outpatient (CLI) | payer MEDICARE, OTHER ==
[~2020-10-15] VITALS: Ht 162.6 cm; Wt 86.1 kg
[2020-10-15] MEDS ORDERED: NS 1,000 ML IV SCH (11:00)
[2020-10-15 12:09] VITALS: BP 109/66
== END 2020-10-15 12:10 | disposition home or self-care (01) ==
LOC: M INFU 10:40
PROVIDERS: ATTEND Internal Medicine Gastroenterology
DX: E86.0 Dehydration (principal); K51.20 Ulcerative (chronic) proctitis without complications; K86.1 Other chronic pancreatitis; R19.7 Diarrhea, unspecified; Z88.6 Allergy status to analgesic agent; Z88.8 Allergy status to other drugs, medicaments and biological substances; Z91.041 Radiographic dye allergy status; Z91.048 Other nonmedicinal substance allergy status
CPT/HCPCS: 96360; J1642

== ENCOUNTER 2020-10-19 10:30 | Outpatient (CLI) | payer MEDICARE, OTHER ==
[~2020-10-19] VITALS: Ht 162.6 cm; Wt 86.1 kg
[2020-10-19 10:39] VITALS: BP 132/79
[2020-10-19 11:06] LABS: HEMATOCRIT 38.6 % (36.0-47.0); HEMOGLOBIN 12.8 g/dl (12.0-15.5); MEAN CORPUSCULAR HEMOGLOBIN 31.1 pg (27.0-33.0); MEAN CORPUSCULAR HGB CONC 33.2 g/dl (32.0-36.5); MEAN CORPUSCULAR VOLUME 93.7 fl (80.0-96.0); PLATELET COUNT, AUTOMATED 318 10^3/uL (150-450); RED BLOOD COUNT 4.12 10^6/uL (4.00-5.40)
[2020-10-19 11:27] LABS: ALT/SGPT 33 U/L (12-78); BILIRUBIN,TOTAL 0.1 MG/DL (0.2-1.0); BLOOD UREA NITROGEN 13 MG/DL (7-18); CALCIUM LEVEL 8.8 MG/DL (8.5-10.1); CARBON DIOXIDE LEVEL 25 MEQ/L (21-32); CHLORIDE LEVEL 106 MEQ/L (98-107); CHOLESTEROL LEVEL 333 MG/DL (<200); CHOLESTEROL RISK RATIO 10.406 (<5); CREATININE FOR GFR 0.63 MG/DL (0.55-1.30); GLOMERULAR FILTRATION RATE > 60.0 (>58); GLUCOSE, FASTING 107 MG/DL (70-100); HDL CHOLESTEROL 32 MG/DL (>40); LIPASE 339 U/L (73-393); NON-HDL-C 301 MG/DL; POTASSIUM SERUM 4.1 MEQ/L (3.5-5.1); SODIUM LEVEL 135 MEQ/L (136-145); TOTAL PROTEIN 7.5 GM/DL (6.4-8.2); TRIGLYCERIDES LEVEL 810 MG/DL (<150)
[2020-10-19 11:42] LABS: ERYTHROCYTE SEDIMENTATION RATE 31 mm/hr (0-20)
[2020-10-19 12:00] VITALS: BP 128/61
== END 2020-10-19 12:00 | disposition home or self-care (01) ==
LOC: M INFU 10:30
PROVIDERS: ATTEND Internal Medicine Gastroenterology
DX: E86.0 Dehydration (principal); K51.20 Ulcerative (chronic) proctitis without complications; K86.1 Other chronic pancreatitis; R19.7 Diarrhea, unspecified
CPT/HCPCS: 36591; 80053; 80061; 83690; 85027; 85652; 86140; 96360; J1642

== ENCOUNTER 2020-10-28 11:26 | Outpatient (CLI) | payer MEDICARE, OTHER ==
[~2020-10-28 11:26] MED LIST changes: -NS 1,000 ML IV SCH
[2020-10-28 11:30] VITALS: BP 132/86
[2020-10-28] MEDS ORDERED: NS 1,000 ML IV SCH (11:30)
[2020-10-28] MEDS ORDERED: SODIUM CHLORIDE 0.9% INJ 10 ML SYR IV PRN (11:30)
[2020-10-28 13:15] VITALS: BP 118/70
[2020-10-29] MEDS ORDERED: SODIUM CHLORIDE 0.9% INJ 10 ML SYR IV SCH (09:00)
== END 2020-10-28 13:15 | disposition home or self-care (01) ==
LOC: M INFU 11:26
PROVIDERS: ATTEND Internal Medicine Gastroenterology
DX: E86.0 Dehydration (principal); K51.20 Ulcerative (chronic) proctitis without complications; K86.1 Other chronic pancreatitis; R19.7 Diarrhea, unspecified; Z88.6 Allergy status to analgesic agent; Z91.041 Radiographic dye allergy status; Z91.048 Other nonmedicinal substance allergy status
CPT/HCPCS: 96360; 96361; J1642

== ENCOUNTER 2020-11-02 10:18 | Outpatient (CLI) | payer MEDICARE, OTHER ==
[~2020-11-02] VITALS: Ht 162.6 cm; Wt 86.1 kg
[2020-11-02] MEDS ORDERED: NS 1,000 ML IV SCH (10:30)
[2020-11-02 10:36] VITALS: BP 112/68
[2020-11-02 11:49] VITALS: BP 111/74
== END 2020-11-02 11:50 | disposition home or self-care (01) ==
LOC: M INFU 10:18
PROVIDERS: ATTEND Internal Medicine Gastroenterology
DX: E86.0 Dehydration (principal); R19.7 Diarrhea, unspecified; K51.80 Other ulcerative colitis without complications
CPT/HCPCS: 96360; J1642

== ENCOUNTER 2020-11-09 10:24 | Outpatient (CLI) | payer MEDICARE, OTHER ==
[~2020-11-09] VITALS: Ht 162.6 cm; Wt 86.1 kg
[2020-11-09] MEDS ORDERED: NS 1,000 ML IV SCH (10:30)
[2020-11-09 10:38] VITALS: BP 141/63
[2020-11-09 11:50] VITALS: BP 136/60
== END 2020-11-09 11:51 | disposition home or self-care (01) ==
LOC: M INFU 10:24
PROVIDERS: ATTEND Internal Medicine Gastroenterology
DX: E86.0 Dehydration (principal); R19.7 Diarrhea, unspecified; K51.80 Other ulcerative colitis without complications
CPT/HCPCS: 96360; J1642

== ENCOUNTER 2020-11-19 07:25 | Outpatient (CLI) | payer MEDICARE, OTHER ==
[~2020-11-19] VITALS: Ht 162.6 cm; Wt 86.1 kg
[~2020-11-19 07:25] MED LIST changes: +NS 1,000 ML IV SCH; +SODIUM CHLORIDE 0.9% INJ 10 ML SYR IV PRN
[2020-11-19] MEDS ORDERED: NS 1,000 ML IV SCH (07:30)
[2020-11-19 08:02] VITALS: BP 139/67
[2020-11-19] MEDS ORDERED: SODIUM CHLORIDE 0.9% INJ 10 ML SYR IV SCH (09:00)
[2020-11-19 09:03] VITALS: BP 113/62
[2020-12-18] MEDS ORDERED: SODIUM CHLORIDE 0.9% INJ 10 ML SYR IV SCH (09:00)
== END 2020-11-19 09:04 | disposition home or self-care (01) ==
LOC: M INFU 07:25
PROVIDERS: ATTEND Internal Medicine Gastroenterology
DX: E86.0 Dehydration (principal); R19.7 Diarrhea, unspecified; K51.80 Other ulcerative colitis without complications; Z88.8 Allergy status to other drugs, medicaments and biological substances; Z91.041 Radiographic dye allergy status; Z91.048 Other nonmedicinal substance allergy status
CPT/HCPCS: 96360; 96523; J1642

== ENCOUNTER 2020-11-25 10:00 | Outpatient (CLI) | payer MEDICARE, OTHER ==
[~2020-11-25] VITALS: Ht 162.6 cm; Wt 85.0 kg
[~2020-11-25 10:00] MED LIST changes: -ACET-908 PO; +ACET-910 PO; -NS 1,000 ML IV SCH; -SODIUM CHLORIDE 0.9% INJ 10 ML SYR IV PRN
[2020-11-25 10:28] VITALS: BP 117/69
[2020-11-25] MEDS ORDERED: NS 1,000 ML IV SCH (10:30)
[2020-11-25 11:50] VITALS: BP 106/64
== END 2020-11-25 11:50 | disposition home or self-care (01) ==
LOC: M INFU 10:00
PROVIDERS: ATTEND Internal Medicine Gastroenterology
DX: E86.0 Dehydration (principal); R19.7 Diarrhea, unspecified; K51.80 Other ulcerative colitis without complications
CPT/HCPCS: 96360; 96523; J1642

== ENCOUNTER 2020-11-30 10:20 | Outpatient (CLI) | payer MEDICARE, OTHER ==
[~2020-11-30] VITALS: Ht 162.6 cm; Wt 86.4 kg
[2020-11-30 10:25] VITALS: BP 116/66
[2020-11-30] MEDS ORDERED: NS 1,000 ML IV SCH (10:30)
[2020-11-30 12:10] VITALS: BP 136/78
== END 2020-11-30 12:10 | disposition home or self-care (01) ==
LOC: M INFU 10:20
PROVIDERS: ATTEND Internal Medicine Gastroenterology
DX: E86.0 Dehydration (principal); R19.7 Diarrhea, unspecified; K51.80 Other ulcerative colitis without complications
CPT/HCPCS: 96360; 96361; 96523; J1642

== ENCOUNTER 2020-12-02 10:25 | Outpatient (CLI) | payer MEDICARE, OTHER ==
[~2020-12-02] VITALS: Ht 162.6 cm; Wt 86.3 kg
[2020-12-02 10:30] VITALS: BP 131/71
[2020-12-02] MEDS ORDERED: NS 1,000 ML IV SCH (10:30)
[2020-12-02 12:30] VITALS: BP 118/70
== END 2020-12-02 12:30 | disposition home or self-care (01) ==
LOC: M INFU 10:25
PROVIDERS: ATTEND Internal Medicine Gastroenterology
DX: E86.0 Dehydration (principal); R19.7 Diarrhea, unspecified; K51.80 Other ulcerative colitis without complications
CPT/HCPCS: 96360; 96523; J1642

== ENCOUNTER 2020-12-07 10:36 | Outpatient (CLI) | payer MEDICARE, OTHER ==
[~2020-12-07] VITALS: Ht 162.6 cm; Wt 86.3 kg
[~2020-12-07 10:36] MED LIST changes: +NS 1,000 ML IV SCH; +SODIUM CHLORIDE 0.9% INJ 10 ML SYR IV PRN
[2020-12-07 10:40] VITALS: BP 135/86
[2020-12-07 11:10] LABS: HEMATOCRIT 39.4 % (36.0-47.0); HEMOGLOBIN 12.9 g/dl (12.0-15.5); MEAN CORPUSCULAR HEMOGLOBIN 30.5 pg (27.0-33.0); MEAN CORPUSCULAR HGB CONC 32.7 g/dl (32.0-36.5); MEAN CORPUSCULAR VOLUME 93.1 fl (80.0-96.0); PLATELET COUNT, AUTOMATED 315 10^3/uL (150-450); RED BLOOD COUNT 4.23 10^6/uL (4.00-5.40); WHITE BLOOD COUNT 9.8 10^3/uL (4.0-10.0)
[2020-12-07 11:33] LABS: ALBUMIN 4.1 GM/DL (3.2-5.2); ALT/SGPT 27 U/L (12-78); BILIRUBIN,TOTAL 0.2 MG/DL (0.2-1.0); BLOOD UREA NITROGEN 16 MG/DL (7-18); C REACTIVE PROTEIN QUANTITATIV 0.35 MG/DL (0.00-0.30); CALCIUM LEVEL 9.3 MG/DL (8.5-10.1); CARBON DIOXIDE LEVEL 25 MEQ/L (21-32); CHLORIDE LEVEL 107 MEQ/L (98-107); CHOLESTEROL LEVEL 336 MG/DL (<200); CHOLESTEROL RISK RATIO 8.615 (<5); CREATININE FOR GFR 0.64 MG/DL (0.55-1.30); GLOMERULAR FILTRATION RATE > 60.0 (>58); GLUCOSE, FASTING 107 MG/DL (70-100); HDL CHOLESTEROL 39 MG/DL (>40); LIPASE 95 U/L (73-393); NON-HDL-C 297 MG/DL; POTASSIUM SERUM 3.9 MEQ/L (3.5-5.1); SODIUM LEVEL 136 MEQ/L (136-145); TOTAL PROTEIN 7.7 GM/DL (6.4-8.2); TRIGLYCERIDES LEVEL 568 MG/DL (<150)
[2020-12-07 11:34] LABS: ERYTHROCYTE SEDIMENTATION RATE 26 mm/hr (0-20)
[2020-12-07 12:30] VITALS: BP 133/82
[2020-12-08] MEDS ORDERED: SODIUM CHLORIDE 0.9% INJ 10 ML SYR IV SCH (09:00)
== END 2020-12-07 12:30 | disposition home or self-care (01) ==
LOC: M INFU 10:36
PROVIDERS: ATTEND Internal Medicine Gastroenterology
DX: E86.0 Dehydration (principal); R19.7 Diarrhea, unspecified; K51.80 Other ulcerative colitis without complications
CPT/HCPCS: 36592; 80053; 80061; 83690; 85027; 85652; 86140; 96360; 96523; J1642

== ENCOUNTER 2020-12-14 10:35 | Outpatient (CLI) | payer MEDICARE, OTHER ==
[~2020-12-14] VITALS: Ht 162.6 cm; Wt 86.3 kg
[~2020-12-14 10:35] MED LIST changes: +GABA-283 PO; -GABA-845 PO; -SODIUM CHLORIDE 0.9% INJ 10 ML SYR IV PRN
[2020-12-14 10:40] VITALS: BP 144/87
[2020-12-14 12:08] VITALS: BP 165/90
[2020-12-24] MEDS ORDERED: SODIUM CHLORIDE 0.9% INJ 10 ML SYR IV SCH (09:00)
[2020-12-24] MEDS ORDERED: NS 1,000 ML IV SCH (10:30)
== END 2020-12-14 12:05 | disposition home or self-care (01) ==
LOC: M INFU 10:35
PROVIDERS: ATTEND Internal Medicine Gastroenterology
DX: E86.0 Dehydration (principal); R19.7 Diarrhea, unspecified; K51.80 Other ulcerative colitis without complications; Z88.5 Allergy status to narcotic agent; Z91.09 Other allergy status, other than to drugs and biological substances; Z91.040 Latex allergy status
CPT/HCPCS: 96360; 96523; J1642

== ENCOUNTER 2020-12-16 10:02 | Outpatient (CLI) | payer MEDICARE, OTHER ==
[~2020-12-16] VITALS: Ht 162.6 cm; Wt 86.1 kg
[~2020-12-16 10:02] MED LIST changes: -GABA-283 PO; +GABA-845 PO; +SODIUM CHLORIDE 0.9% INJ 10 ML SYR IV PRN
[2020-12-16 10:25] VITALS: BP 121/68
[2020-12-16 11:30] VITALS: BP 135/81
== END 2020-12-16 11:40 | disposition home or self-care (01) ==
LOC: M INFU 10:02
PROVIDERS: ATTEND Internal Medicine Gastroenterology
DX: E86.0 Dehydration (principal); R19.7 Diarrhea, unspecified; K51.80 Other ulcerative colitis without complications
CPT/HCPCS: 96360; 96523; J1642

== ENCOUNTER 2020-12-23 10:09 | Outpatient (CLI) | payer MEDICARE, OTHER ==
[~2020-12-23] VITALS: Ht 162.6 cm; Wt 86.1 kg
[~2020-12-23 10:09] MED LIST changes: -NS 1,000 ML IV SCH; -SODIUM CHLORIDE 0.9% INJ 10 ML SYR IV PRN
[2020-12-23] MEDS ORDERED: NS 1,000 ML IV SCH (10:30)
[2020-12-23] MEDS ORDERED: SODIUM CHLORIDE 0.9% INJ 10 ML SYR IV PRN (10:30)
[2020-12-23 10:33] VITALS: BP 131/85
[2020-12-24] MEDS ORDERED: SODIUM CHLORIDE 0.9% INJ 10 ML SYR IV SCH (09:00)
== END 2020-12-23 12:00 | disposition home or self-care (01) ==
LOC: M INFU 10:09
PROVIDERS: ATTEND Internal Medicine Gastroenterology
DX: E86.0 Dehydration (principal); Z88.6 Allergy status to analgesic agent; Z88.8 Allergy status to other drugs, medicaments and biological substances
CPT/HCPCS: 96360; 96523; J1642

== ENCOUNTER 2020-12-30 10:05 | Outpatient (CLI) | payer MEDICARE, OTHER ==
[~2020-12-30] VITALS: Ht 162.6 cm; Wt 86.0 kg
[~2020-12-30 10:05] MED LIST changes: +GABA-283 PO; -GABA-845 PO
[2020-12-30 10:27] VITALS: BP 125/74
[2020-12-30] MEDS ORDERED: NS 1,000 ML IV SCH (10:30)
[2020-12-30 11:40] VITALS: BP 120/68
== END 2020-12-30 11:40 | disposition home or self-care (01) ==
LOC: M INFU 10:05
PROVIDERS: ATTEND Internal Medicine Gastroenterology
DX: E86.0 Dehydration (principal); R19.7 Diarrhea, unspecified; K51.80 Other ulcerative colitis without complications; Z88.6 Allergy status to analgesic agent; Z88.8 Allergy status to other drugs, medicaments and biological substances; Z91.040 Latex allergy status; Z91.041 Radiographic dye allergy status; Z91.048 Other nonmedicinal substance allergy status
CPT/HCPCS: 96360; 96523; J1642

== ENCOUNTER 2021-01-06 10:41 | Outpatient (CLI) | payer MEDICARE, OTHER ==
[~2021-01-06] VITALS: Ht 162.6 cm; Wt 86.1 kg
[~2021-01-06 10:41] MED LIST changes: +NS 1,000 ML IV ONE; +SODIUM CHLORIDE 0.9% INJ 10 ML SYR IV PRN
[2021-01-06 12:08] VITALS: BP 129/84
== END 2021-01-06 12:08 | disposition home or self-care (01) ==
LOC: M INFU 10:41
PROVIDERS: ATTEND Internal Medicine Gastroenterology
DX: E86.0 Dehydration (principal); R19.7 Diarrhea, unspecified; K51.80 Other ulcerative colitis without complications
CPT/HCPCS: 96360; 96523; J1642

== ENCOUNTER 2021-01-13 11:02 | Outpatient (CLI) | payer MEDICARE, OTHER ==
[~2021-01-13] VITALS: Ht 162.6 cm; Wt 86.1 kg
[~2021-01-13 11:02] MED LIST changes: -NS 1,000 ML IV ONE; +NS 1,000 ML IV SCH
[2021-01-13 11:16] VITALS: BP 132/68
[2021-01-13 12:40] VITALS: BP 126/56
== END 2021-01-13 12:41 | disposition home or self-care (01) ==
LOC: M INFU 11:02
PROVIDERS: ATTEND Internal Medicine Gastroenterology
DX: E86.0 Dehydration (principal); R19.7 Diarrhea, unspecified; K51.80 Other ulcerative colitis without complications
CPT/HCPCS: 96360; 96523; J1642

== ENCOUNTER 2021-01-20 10:24 | Outpatient (CLI) | payer MEDICARE, OTHER ==
[~2021-01-20] VITALS: Ht 162.6 cm; Wt 86.1 kg
[~2021-01-20 10:24] MED LIST changes: -NS 1,000 ML IV SCH; -SODIUM CHLORIDE 0.9% INJ 10 ML SYR IV PRN
[2021-01-20 10:30] VITALS: BP 121/70
[2021-01-20] MEDS ORDERED: NS 1,000 ML IV SCH (10:30)
[2021-01-20] MEDS ORDERED: SODIUM CHLORIDE 0.9% INJ 10 ML SYR IV PRN (10:30)
[2021-01-20 12:05] VITALS: BP 134/77
== END 2021-01-20 12:05 | disposition home or self-care (01) ==
LOC: M INFU 10:24
PROVIDERS: ATTEND Internal Medicine Gastroenterology
DX: E86.0 Dehydration (principal); R19.7 Diarrhea, unspecified; K51.80 Other ulcerative colitis without complications
CPT/HCPCS: 96360; 96523; J1642

== ENCOUNTER 2021-01-25 10:31 | Outpatient (CLI) | payer MEDICARE, OTHER ==
[~2021-01-25] VITALS: Ht 162.6 cm; Wt 86.1 kg
[~2021-01-25 10:31] MED LIST changes: +NS 1,000 ML IV SCH; +SODIUM CHLORIDE 0.9% INJ 10 ML SYR IV PRN
[2021-01-25 10:46] VITALS: BP 138/77
[2021-01-25 12:13] VITALS: BP 131/79
== END 2021-01-25 12:10 | disposition home or self-care (01) ==
LOC: M INFU 10:31
PROVIDERS: ATTEND Internal Medicine Gastroenterology
DX: E86.0 Dehydration (principal)
CPT/HCPCS: 96360; 96523; J1642

== ENCOUNTER 2021-02-03 10:27 | Outpatient (CLI) | payer MEDICARE, OTHER ==
[~2021-02-03] VITALS: Ht 162.6 cm; Wt 81.8 kg
[~2021-02-03 10:27] MED LIST changes: -NS 1,000 ML IV SCH; +OMEP40CA4 PO; -OMEP40CA97 PO; -SODIUM CHLORIDE 0.9% INJ 10 ML SYR IV PRN
[2021-02-03 10:30] VITALS: BP 141/87
[2021-02-03] MEDS ORDERED: NS 1,000 ML IV SCH (10:30)
[2021-02-03] MEDS ORDERED: SODIUM CHLORIDE 0.9% INJ 10 ML SYR IV PRN (10:30)
[2021-02-03 11:07] LABS: HEMATOCRIT 35.7 % (36.0-47.0); HEMOGLOBIN 11.4 g/dl (12.0-15.5); MEAN CORPUSCULAR HEMOGLOBIN 30.5 pg (27.0-33.0); MEAN CORPUSCULAR HGB CONC 31.9 g/dl (32.0-36.5); MEAN CORPUSCULAR VOLUME 95.5 fl (80.0-96.0); PLATELET COUNT, AUTOMATED 281 10^3/uL (150-450); RED BLOOD COUNT 3.74 10^6/uL (4.00-5.40); WHITE BLOOD COUNT 13.8 10^3/uL (4.0-10.0)
[2021-02-03 11:30] LABS: ERYTHROCYTE SEDIMENTATION RATE 33 mm/hr (0-20)
[2021-02-03 12:19] LABS: ALBUMIN 3.7 GM/DL (3.2-5.2); ALT/SGPT 25 U/L (12-78); BILIRUBIN,TOTAL 0.2 MG/DL (0.2-1.0); BLOOD UREA NITROGEN 9 MG/DL (7-18); C REACTIVE PROTEIN QUANTITATIV 1.02 MG/DL (0.00-0.30); CALCIUM LEVEL 8.8 MG/DL (8.5-10.1); CARBON DIOXIDE LEVEL 25 MEQ/L (21-32); CHLORIDE LEVEL 105 MEQ/L (98-107); CHOLESTEROL LEVEL 250 MG/DL (<200); CHOLESTEROL RISK RATIO 7.812 (<5); CREATININE FOR GFR 0.72 MG/DL (0.55-1.30); GLOMERULAR FILTRATION RATE > 60.0 (>58); GLUCOSE, FASTING 128 MG/DL (70-100); HDL CHOLESTEROL 32 MG/DL (>40); LIPASE 64 U/L (73-393); NON-HDL-C 218 MG/DL; POTASSIUM SERUM 3.8 MEQ/L (3.5-5.1); SODIUM LEVEL 134 MEQ/L (136-145); TOTAL PROTEIN 6.9 GM/DL (6.4-8.2); TRIGLYCERIDES LEVEL 644 MG/DL (<150)
[2021-02-03 12:25] VITALS: BP 122/87
== END 2021-02-03 12:30 | disposition home or self-care (01) ==
LOC: M INFU 10:27
PROVIDERS: ATTEND Internal Medicine Gastroenterology
DX: E86.0 Dehydration (principal); R19.7 Diarrhea, unspecified; K51.80 Other ulcerative colitis without complications; Z88.6 Allergy status to analgesic agent; Z91.041 Radiographic dye allergy status; Z91.048 Other nonmedicinal substance allergy status
CPT/HCPCS: 36591; 80053; 80061; 83690; 85027; 85652; 86140; 96360; J1642

== ENCOUNTER 2021-02-15 07:29 | Outpatient (CLI) | payer MEDICARE, OTHER ==
[~2021-02-15] VITALS: Ht 162.6 cm; Wt 86.0 kg
[~2021-02-15 07:29] MED LIST changes: -SODIUM CHLORIDE 0.9% INJ 10 ML SYR IV SCH
[2021-02-15 07:35] VITALS: BP 132/69
[2021-02-15 09:00] VITALS: BP 112/65
[2021-02-15] MEDS ORDERED: SODIUM CHLORIDE 0.9% INJ 10 ML SYR IV SCH (09:00)
[2021-02-15] MEDS ORDERED: NS 1,000 ML IV SCH (10:30)
== END 2021-02-15 09:05 | disposition home or self-care (01) ==
LOC: M INFU 07:29
PROVIDERS: ATTEND Internal Medicine Gastroenterology
DX: E86.0 Dehydration (principal); R19.7 Diarrhea, unspecified; K51.80 Other ulcerative colitis without complications
CPT/HCPCS: 96523; J1642

== ENCOUNTER 2021-02-22 10:40 | Outpatient (CLI) | payer MEDICARE, OTHER ==
[~2021-02-22] VITALS: Ht 162.6 cm; Wt 86.0 kg
[~2021-02-22 10:40] MED LIST changes: +NS 1,000 ML IV SCH; +SODIUM CHLORIDE 0.9% INJ 10 ML SYR IV SCH
[2021-02-22 10:55] VITALS: BP 113/74
[2021-02-22 12:00] VITALS: BP 115/71
== END 2021-02-22 12:00 | disposition home or self-care (01) ==
LOC: M INFU 10:40
PROVIDERS: ATTEND Internal Medicine Gastroenterology
DX: E86.0 Dehydration (principal); R19.7 Diarrhea, unspecified; K51.80 Other ulcerative colitis without complications; Z88.6 Allergy status to analgesic agent; Z91.040 Latex allergy status; Z91.041 Radiographic dye allergy status
CPT/HCPCS: 96360; J1642

== ENCOUNTER 2021-03-01 13:14 | Outpatient (CLI) | payer MEDICARE, OTHER ==
[~2021-03-01] VITALS: Ht 162.6 cm; Wt 86.0 kg
[~2021-03-01 13:14] MED LIST changes: +SODIUM CHLORIDE 0.9% INJ 10 ML SYR IV PRN
[2021-03-01 13:44] VITALS: BP 118/80
[2021-03-01 14:35] VITALS: BP_SYST 74
== END 2021-03-01 14:40 | disposition home or self-care (01) ==
LOC: M INFU 13:14
PROVIDERS: ATTEND Internal Medicine Gastroenterology
DX: E86.0 Dehydration (principal); R19.7 Diarrhea, unspecified; K51.80 Other ulcerative colitis without complications; Z88.6 Allergy status to analgesic agent; Z88.8 Allergy status to other drugs, medicaments and biological substances; Z91.048 Other nonmedicinal substance allergy status; Z91.041 Radiographic dye allergy status
CPT/HCPCS: 96401; 96523; J1642

== ENCOUNTER 2021-03-08 10:52 | Outpatient (CLI) | payer MEDICARE, OTHER ==
[~2021-03-08] VITALS: Ht 162.6 cm; Wt 86.0 kg
[~2021-03-08 10:52] MED LIST changes: -SODIUM CHLORIDE 0.9% INJ 10 ML SYR IV PRN
[2021-03-08 11:03] VITALS: BP 142/85
[2021-03-08 12:10] VITALS: BP 134/74
[2021-03-08 12:15] VITALS: BP 122/72
== END 2021-03-08 12:10 | disposition home or self-care (01) ==
LOC: M INFU 10:52
PROVIDERS: ATTEND Internal Medicine Gastroenterology
DX: E86.0 Dehydration (principal); R19.7 Diarrhea, unspecified; K51.80 Other ulcerative colitis without complications; Z88.6 Allergy status to analgesic agent; Z91.041 Radiographic dye allergy status; Z91.048 Other nonmedicinal substance allergy status
CPT/HCPCS: 96360; 96523; J1642

== ENCOUNTER 2021-03-22 07:04 | Outpatient (CLI) | payer MEDICARE, OTHER ==
[~2021-03-22] VITALS: Ht 162.6 cm; Wt 86.0 kg
[~2021-03-22 07:04] MED LIST changes: -PSEU30TA85 PO; +PSEU30TA86 PO; -SODIUM CHLORIDE 0.9% INJ 10 ML SYR IV SCH
[2021-03-22 07:12] VITALS: BP 131/72
[2021-03-22 08:20] VITALS: BP 128/69
[2021-03-22] MEDS ORDERED: SODIUM CHLORIDE 0.9% INJ 10 ML SYR IV SCH (09:00)
== END 2021-03-22 08:20 | disposition home or self-care (01) ==
LOC: M INFU 07:04
PROVIDERS: ATTEND Internal Medicine Gastroenterology
DX: E86.0 Dehydration (principal); R19.7 Diarrhea, unspecified; K51.80 Other ulcerative colitis without complications; Z88.8 Allergy status to other drugs, medicaments and biological substances; Z88.6 Allergy status to analgesic agent; Z91.040 Latex allergy status
CPT/HCPCS: 96360; J1642

== ENCOUNTER 2021-03-29 07:14 | Outpatient (CLI) | payer MEDICARE, OTHER ==
[2021-03-29 07:20] VITALS: BP 119/73
[2021-03-29 08:02] LABS: HEMATOCRIT 40.1 % (36.0-47.0); HEMOGLOBIN 13.2 g/dl (12.0-15.5); MEAN CORPUSCULAR HEMOGLOBIN 31.1 pg (27.0-33.0); MEAN CORPUSCULAR HGB CONC 32.9 g/dl (32.0-36.5); MEAN CORPUSCULAR VOLUME 94.4 fl (80.0-96.0); PLATELET COUNT, AUTOMATED 274 10^3/uL (150-450); RED BLOOD COUNT 4.25 10^6/uL (4.00-5.40); WHITE BLOOD COUNT 10.4 10^3/uL (4.0-10.0)
[2021-03-29 08:25] LABS: ALBUMIN 3.4 GM/DL (3.2-5.2); ALT/SGPT 37 U/L (12-78); BILIRUBIN,TOTAL 0.2 MG/DL (0.2-1.0); BLOOD UREA NITROGEN 9 MG/DL (7-18); C REACTIVE PROTEIN QUANTITATIV 1.59 MG/DL (0.00-0.30); CALCIUM LEVEL 8.2 MG/DL (8.5-10.1); CARBON DIOXIDE LEVEL 26 MEQ/L (21-32); CHLORIDE LEVEL 108 MEQ/L (98-107); CHOLESTEROL LEVEL 295 MG/DL (<200); CHOLESTEROL RISK RATIO 10.172 (<5); GLOMERULAR FILTRATION RATE > 60.0 (>58); GLUCOSE, FASTING 106 MG/DL (70-100); HDL CHOLESTEROL 29 MG/DL (>40); LIPASE 417 U/L (73-393); NON-HDL-C 266 MG/DL; POTASSIUM SERUM 4.1 MEQ/L (3.5-5.1); SODIUM LEVEL 137 MEQ/L (136-145); TOTAL PROTEIN 6.7 GM/DL (6.4-8.2); TRIGLYCERIDES LEVEL 782 MG/DL (<150)
[2021-03-29 08:59] LABS: ERYTHROCYTE SEDIMENTATION RATE 23 mm/hr (0-20)
[2021-03-29] MEDS ORDERED: SODIUM CHLORIDE 0.9% INJ 10 ML SYR IV SCH (09:00)
[2021-03-29 09:10] VITALS: BP 101/56
== END 2021-03-29 09:10 | disposition home or self-care (01) ==
LOC: M INFU 07:14
PROVIDERS: ATTEND Internal Medicine Gastroenterology
DX: E86.0 Dehydration (principal); R19.7 Diarrhea, unspecified; K51.80 Other ulcerative colitis without complications; Z88.6 Allergy status to analgesic agent; Z91.040 Latex allergy status; Z91.041 Radiographic dye allergy status
CPT/HCPCS: 36591; 80053; 80061; 83690; 85027; 85652; 86140; 96360; 96361; J1642

== ENCOUNTER 2021-03-30 09:08 | Emergency (ER) | payer MEDICARE, OTHER ==
[~2021-03-30] VITALS: Ht 162.6 cm; Wt 82.2 kg
[~2021-03-30 09:08] MED LIST changes: -NS 1,000 ML IV SCH
[2021-03-30] MEDS ORDERED: NS 1,000 ML IV ONE (11:15)
[2021-03-30] MEDS ORDERED: SODIUM CHLORIDE 0.9% INJ 10 ML SYR IV PRN (11:25)
[2021-03-30 12:11] LABS: BASO % 0.5 % (0.0-1.0); EOS # 0.1 10^3/uL (0.0-0.5); EOS % 0.6 % (0.0-3.0); HEMATOCRIT 40.4 % (36.0-47.0); HEMOGLOBIN 13.2 g/dl (12.0-15.5); LYMPH # 2.7 10^3/uL (1.5-5.0); LYMPH % 31.2 % (24.0-44.0); MEAN CORPUSCULAR HEMOGLOBIN 30.6 pg (27.0-33.0); MEAN CORPUSCULAR HGB CONC 32.7 g/dl (32.0-36.5); MEAN CORPUSCULAR VOLUME 93.7 fl (80.0-96.0); MONO # 0.7 10^3/uL (0.0-0.8); MONO % 7.7 % (2.0-8.0); NEUTROPHILS # 5.2 10^3/uL (1.5-8.5); NEUTROPHILS % 59.7 % (36.0-66.0); PLATELET COUNT, AUTOMATED 253 10^3/uL (150-450); RED BLOOD COUNT 4.31 10^6/uL (4.00-5.40); WHITE BLOOD COUNT 8.7 10^3/uL (4.0-10.0)
[2021-03-30 12:45] LABS: ALBUMIN 3.5 GM/DL (3.2-5.2); ALT/SGPT 136 U/L (12-78); BILIRUBIN,DIRECT 0.1 MG/DL (0.0-0.2); BILIRUBIN,TOTAL 0.2 MG/DL (0.2-1.0); BLOOD UREA NITROGEN 9 MG/DL (7-18); CALCIUM LEVEL 8.8 MG/DL (8.5-10.1); CARBON DIOXIDE LEVEL 25 MEQ/L (21-32); CHLORIDE LEVEL 108 MEQ/L (98-107); CREATININE FOR GFR 0.55 MG/DL (0.55-1.30); GLOMERULAR FILTRATION RATE > 60.0 (>58); GLUCOSE, FASTING 94 MG/DL (70-100); LIPASE 41 U/L (73-393); POTASSIUM SERUM 4.3 MEQ/L (3.5-5.1); SODIUM LEVEL 139 MEQ/L (136-145); TOTAL PROTEIN 6.8 GM/DL (6.4-8.2)
[2021-03-30 13:44] LABS: HEPATITIS B SURFACE ANTIGEN NEGATIVE (NEGATIVE)
[2021-03-30 14:11] LABS: HEPATITIS C VIRUS ABY INDEX 0.1 INDEX (<0.8)
[2021-03-30 14:12] LABS: HEPATITIS B CORE ANTIBODY IGM NEGATIVE (NEGATIVE)
[2021-03-30 14:13] LABS: HEPATITIS A ANTIBODY IGM NEGATIVE (NEGATIVE)
--- NOTE | 2021-03-30 14:22 | REP ---
INDICATION: upper abd pain, elevated liver enzymes, prior najma. COMPARISON: None. TECHNIQUE: Routine ultrasound FINDINGS: The gallbladder has been surgically removed bed the common bile duct measures 10 mm. There is mild dilatation of the central biliary radicles. The peripheral biliary radicles are not dilated. The liver is slightly enlarged measuring 17.9 cm. The echo pattern is normal. There is no mass. The visualized portions of the pancreas are unremarkable. The right kidney shows normal size measuring 11 cm in length. There is no hydronephrosis, mass, cyst or calculus. IMPRESSION: Slight dilatation of the common bile duct and central biliary radicles. No other abnormalities are demonstrated. Follow-up with MRCP might be helpful. <Electronically signed by [employer] > 03/30/21 [id number]
[2021-03-30 15:11] VITALS: BP 107/64
--- NOTE | 2021-04-01 13:27 | ED PDOC ---
Post-Departure Follow-Up radiology report faxed to Ingris Ohara MD Apr 01, 2021 13:27
== END 2021-03-30 15:19 | disposition home or self-care (01) ==
LOC: M ED 09:08
DX: R94.5 Abnormal results of liver function studies (principal); R10.9 Unspecified abdominal pain; R11.0 Nausea; Z87.19 Personal history of other diseases of the digestive system; Z87.891 Personal history of nicotine dependence; Z79.899 Other long term (current) drug therapy; Z91.041 Radiographic dye allergy status; Z91.89 Other specified personal risk factors, not elsewhere classified; Z88.6 Allergy status to analgesic agent; Z91.040 Latex allergy status; Z88.5 Allergy status to narcotic agent
CPT/HCPCS: 36415; 76705; 80048; 80076; 83690; 85025; 86705; 86709; 86803; 87340; 96360; 96361; 99284; J1642

== ENCOUNTER 2021-03-31 07:11 | Outpatient (CLI) | payer MEDICARE, OTHER ==
[~2021-03-31] VITALS: Ht 162.6 cm; Wt 86.0 kg
[~2021-03-31 07:11] MED LIST changes: +NS 1,000 ML IV SCH
[2021-03-31 07:33] VITALS: BP 127/62
[2021-03-31] MEDS ORDERED: SODIUM CHLORIDE 0.9% INJ 10 ML SYR IV SCH (09:00)
[2021-03-31 09:05] VITALS: BP 117/63
== END 2021-03-31 09:10 | disposition home or self-care (01) ==
LOC: M INFU 07:11
PROVIDERS: ATTEND Internal Medicine Gastroenterology
DX: E86.0 Dehydration (principal); R19.7 Diarrhea, unspecified; K51.80 Other ulcerative colitis without complications; Z88.6 Allergy status to analgesic agent; Z91.040 Latex allergy status
CPT/HCPCS: 96360; J1642

== ENCOUNTER → 2021-04-01 | Outpatient (CLI) | payer MEDICARE, OTHER ==
[~2021-04-01] MED LIST changes: -NS 1,000 ML IV SCH
[2021-04-01 15:11] LABS: ALBUMIN 3.6 GM/DL (3.2-5.2); ALT/SGPT 117 U/L (12-78); BILIRUBIN,DIRECT < 0.1 MG/DL (0.0-0.2); BILIRUBIN,TOTAL 0.2 MG/DL (0.2-1.0)
== END ==
LOC: M LAB 13:59
PROVIDERS: ATTEND Physician Assistant Medical
DX: R94.5 Abnormal results of liver function studies (principal)

== ENCOUNTER 2021-04-05 07:46 | Outpatient (CLI) | payer MEDICARE, OTHER ==
[~2021-04-05 07:46] MED LIST changes: +NS 1,000 ML IV SCH
[2021-04-05 07:55] VITALS: BP 118/71
[2021-04-05] MEDS ORDERED: SODIUM CHLORIDE 0.9% INJ 10 ML SYR IV SCH (09:00)
[2021-04-05 09:40] VITALS: BP 118/70
== END 2021-04-05 09:40 | disposition home or self-care (01) ==
LOC: M INFU 07:46
PROVIDERS: ATTEND Internal Medicine Gastroenterology
DX: E86.0 Dehydration (principal); R19.7 Diarrhea, unspecified; K51.80 Other ulcerative colitis without complications; Z88.6 Allergy status to analgesic agent; Z91.041 Radiographic dye allergy status; Z91.048 Other nonmedicinal substance allergy status; Z91.040 Latex allergy status
CPT/HCPCS: 96360; 96361; J1642

== ENCOUNTER 2021-04-07 06:50 | Outpatient (CLI) | payer MEDICARE, OTHER ==
[~2021-04-07 06:50] MED LIST changes: -NS 1,000 ML IV SCH
[2021-04-07 07:00] VITALS: BP 122/60
[2021-04-07] MEDS ORDERED: NS 1,000 ML IV SCH (07:00)
[2021-04-07 08:45] VITALS: BP 110/56
[2021-04-07] MEDS ORDERED: SODIUM CHLORIDE 0.9% INJ 10 ML SYR IV SCH (09:00)
== END 2021-04-07 08:50 | disposition home or self-care (01) ==
LOC: M INFU 06:50
PROVIDERS: ATTEND Internal Medicine Gastroenterology
DX: E86.0 Dehydration (principal); R19.7 Diarrhea, unspecified; K51.80 Other ulcerative colitis without complications; Z88.8 Allergy status to other drugs, medicaments and biological substances; Z91.048 Other nonmedicinal substance allergy status; Z88.6 Allergy status to analgesic agent
CPT/HCPCS: 96360; 96361; J1642

== ENCOUNTER 2021-04-12 07:33 | Outpatient (CLI) | payer MEDICARE, OTHER ==
[~2021-04-12] VITALS: Ht 162.6 cm; Wt 86.0 kg
[~2021-04-12 07:33] MED LIST changes: +NS 1,000 ML IV SCH; +SODIUM CHLORIDE 0.9% INJ 10 ML SYR IV PRN
[2021-04-12 07:54] VITALS: BP 110/64
[2021-04-12 08:31] LABS: HEMATOCRIT 38.7 % (36.0-47.0); HEMOGLOBIN 12.7 g/dl (12.0-15.5); MEAN CORPUSCULAR HEMOGLOBIN 30.9 pg (27.0-33.0); MEAN CORPUSCULAR HGB CONC 32.8 g/dl (32.0-36.5); MEAN CORPUSCULAR VOLUME 94.2 fl (80.0-96.0); PLATELET COUNT, AUTOMATED 386 10^3/uL (150-450); RED BLOOD COUNT 4.11 10^6/uL (4.00-5.40)
[2021-04-12 08:54] LABS: ALBUMIN 3.4 GM/DL (3.2-5.2); ALT/SGPT 272 U/L (12-78); BILIRUBIN,TOTAL 0.4 MG/DL (0.2-1.0); BLOOD UREA NITROGEN 9 MG/DL (7-18); CALCIUM LEVEL 9.1 MG/DL (8.5-10.1); CARBON DIOXIDE LEVEL 24 MEQ/L (21-32); CHLORIDE LEVEL 110 MEQ/L (98-107); CHOLESTEROL LEVEL 283 MG/DL (<200); CHOLESTEROL RISK RATIO 10.481 (<5); CREATININE FOR GFR 0.62 MG/DL (0.55-1.30); GLOMERULAR FILTRATION RATE > 60.0 (>58); GLUCOSE, FASTING 113 MG/DL (70-100); HDL CHOLESTEROL 27 MG/DL (>40); LIPASE 633 U/L (73-393); NON-HDL-C 256 MG/DL; POTASSIUM SERUM 4.5 MEQ/L (3.5-5.1); SODIUM LEVEL 140 MEQ/L (136-145); TOTAL PROTEIN 7.2 GM/DL (6.4-8.2); TRIGLYCERIDES LEVEL 536 MG/DL (<150)
[2021-04-12] MEDS ORDERED: SODIUM CHLORIDE 0.9% INJ 10 ML SYR IV SCH (09:00)
[2021-04-12 09:10] VITALS: BP 108/65
[2021-04-12 09:32] LABS: ERYTHROCYTE SEDIMENTATION RATE 32 mm/hr (0-20)
== END 2021-04-12 09:25 | disposition home or self-care (01) ==
LOC: M INFU 07:33
PROVIDERS: ATTEND Internal Medicine Gastroenterology
DX: E86.0 Dehydration (principal); R19.7 Diarrhea, unspecified; K51.80 Other ulcerative colitis without complications; Z88.6 Allergy status to analgesic agent; Z91.041 Radiographic dye allergy status; Z91.048 Other nonmedicinal substance allergy status; Z91.040 Latex allergy status
CPT/HCPCS: 36592; 80053; 80061; 83690; 85027; 85652; 86140; 96360; J1642

== ENCOUNTER 2021-04-14 07:16 | Outpatient (CLI) | payer MEDICARE, OTHER ==
[~2021-04-14] VITALS: Ht 152.4 cm; Wt 86.1 kg
[2021-04-14 07:28] VITALS: BP 116/65
[2021-04-14] MEDS ORDERED: SODIUM CHLORIDE 0.9% INJ 10 ML SYR IV SCH ×2 (09:00)
[2021-04-14] MEDS ORDERED: NS 1,000 ML IV SCH (09:00)
[2021-04-14 10:20] VITALS: BP 119/76
== END 2021-04-14 10:20 | disposition home or self-care (01) ==
LOC: M INFU 07:16
PROVIDERS: ATTEND Internal Medicine Gastroenterology
DX: E86.0 Dehydration (principal); Z88.6 Allergy status to analgesic agent; Z88.8 Allergy status to other drugs, medicaments and biological substances; Z91.041 Radiographic dye allergy status; Z91.048 Other nonmedicinal substance allergy status
CPT/HCPCS: 96360; 96361; J1642

== ENCOUNTER 2021-04-19 06:59 | Outpatient (CLI) | payer MEDICARE, OTHER ==
[~2021-04-19] VITALS: Ht 162.6 cm; Wt 86.1 kg
[~2021-04-19 06:59] MED LIST changes: -NS 1,000 ML IV SCH; -SODIUM CHLORIDE 0.9% INJ 10 ML SYR IV PRN
[2021-04-19] MEDS ORDERED: NS 1,000 ML IV SCH (07:00)
[2021-04-19] MEDS ORDERED: SODIUM CHLORIDE 0.9% INJ 10 ML SYR IV PRN (07:00)
[2021-04-19 07:20] VITALS: BP 125/64
[2021-04-19] MEDS ORDERED: NS 1,000 ML IV PRN (07:25)
[2021-04-19] MEDS ORDERED: SODIUM CHLORIDE 0.9% INJ 10 ML SYR IV SCH (09:00)
[2021-04-19 09:40] VITALS: BP 123/67
== END 2021-04-19 13:57 | disposition home or self-care (01) ==
LOC: M INFU 06:59
PROVIDERS: ATTEND Internal Medicine Gastroenterology
DX: E86.0 Dehydration (principal); R19.7 Diarrhea, unspecified; K51.90 Ulcerative colitis, unspecified, without complications; Z88.6 Allergy status to analgesic agent; Z88.5 Allergy status to narcotic agent; Z91.040 Latex allergy status
CPT/HCPCS: 96360; J1642

== ENCOUNTER 2021-04-21 06:47 | Outpatient (CLI) | payer MEDICARE, OTHER ==
[~2021-04-21] VITALS: Ht 162.6 cm; Wt 85.4 kg
[2021-04-21 07:00] VITALS: BP 128/70
[2021-04-21 07:27] LABS: HEMATOCRIT 36.1 % (36.0-47.0); HEMOGLOBIN 12.2 g/dl (12.0-15.5); MEAN CORPUSCULAR HEMOGLOBIN 31.8 pg (27.0-33.0); MEAN CORPUSCULAR HGB CONC 33.8 g/dl (32.0-36.5); PLATELET COUNT, AUTOMATED 316 10^3/uL (150-450); RED BLOOD COUNT 3.84 10^6/uL (4.00-5.40); WHITE BLOOD COUNT 9.8 10^3/uL (4.0-10.0)
[2021-04-21 07:48] LABS: ALBUMIN 3.5 GM/DL (3.2-5.2); ALT/SGPT 51 U/L (12-78); BILIRUBIN,DIRECT 0.1 MG/DL (0.0-0.2); BILIRUBIN,TOTAL 0.3 MG/DL (0.2-1.0); BLOOD UREA NITROGEN 9 MG/DL (7-18); CALCIUM LEVEL 8.7 MG/DL (8.5-10.1); CARBON DIOXIDE LEVEL 27 MEQ/L (21-32); CHLORIDE LEVEL 110 MEQ/L (98-107); CREATININE FOR GFR 0.61 MG/DL (0.55-1.30); GLOMERULAR FILTRATION RATE > 60.0 (>58); GLUCOSE, FASTING 101 MG/DL (70-100); LIPASE 143 U/L (73-393); POTASSIUM SERUM 3.6 MEQ/L (3.5-5.1); SODIUM LEVEL 140 MEQ/L (136-145); TOTAL PROTEIN 6.9 GM/DL (6.4-8.2)
[2021-04-21] MEDS ORDERED: NS 1,000 ML IV SCH (08:00)
[2021-04-21 08:55] VITALS: BP 150/83
[2021-04-21] MEDS ORDERED: SODIUM CHLORIDE 0.9% INJ 10 ML SYR IV SCH (09:00)
== END 2021-04-21 09:00 | disposition home or self-care (01) ==
LOC: M INFU 06:47
PROVIDERS: ATTEND Internal Medicine Gastroenterology
DX: E86.0 Dehydration (principal); R19.7 Diarrhea, unspecified; K51.80 Other ulcerative colitis without complications
CPT/HCPCS: 36591; 80048; 80076; 83690; 85027; 96360; 96361; J1642

== ENCOUNTER 2021-04-26 06:43 | Outpatient (CLI) | payer MEDICARE, OTHER ==
[~2021-04-26] VITALS: Ht 162.6 cm; Wt 85.4 kg
[2021-04-26] MEDS ORDERED: NS 1,000 ML IV SCH (06:55)
[2021-04-26 07:05] VITALS: BP 133/81
[2021-04-26 08:16] VITALS: BP 122/76
[2021-04-26] MEDS ORDERED: SODIUM CHLORIDE 0.9% INJ 10 ML SYR IV SCH (09:00)
== END 2021-04-26 08:15 | disposition home or self-care (01) ==
LOC: M INFU 06:43
PROVIDERS: ATTEND Internal Medicine Gastroenterology
DX: E86.0 Dehydration (principal); R19.7 Diarrhea, unspecified; K51.80 Other ulcerative colitis without complications; Z91.040 Latex allergy status; Z91.041 Radiographic dye allergy status; Z91.048 Other nonmedicinal substance allergy status
CPT/HCPCS: 96360; J1642

== ENCOUNTER 2021-04-28 07:02 | Outpatient (CLI) | payer MEDICARE, OTHER ==
[~2021-04-28] VITALS: Ht 162.6 cm; Wt 85.4 kg
[2021-04-28 07:10] VITALS: BP 126/70
[2021-04-28] MEDS: NS 1,000 ML IV SCH ×2 (07:11→08:13)
[2021-04-28] MEDS ORDERED: SODIUM CHLORIDE 0.9% INJ 10 ML SYR IV SCH (09:00)
[2021-04-28 09:31] VITALS: BP 112/65
== END 2021-04-28 09:30 | disposition home or self-care (01) ==
LOC: M INFU 07:02
PROVIDERS: ATTEND Internal Medicine Gastroenterology
DX: E86.0 Dehydration (principal); R19.7 Diarrhea, unspecified; K51.80 Other ulcerative colitis without complications
CPT/HCPCS: 96360; 96361; J1642

== ENCOUNTER 2021-05-03 07:23 | Outpatient (CLI) | payer MEDICARE, OTHER ==
[~2021-05-03] VITALS: Ht 162.6 cm; Wt 78.2 kg
[~2021-05-03 07:23] MED LIST changes: +SODIUM CHLORIDE 0.9% INJ 10 ML SYR IV PRN
[2021-05-03 07:30] VITALS: BP 136/87
[2021-05-03] MEDS ORDERED: NS 1,000 ML IV SCH (08:20)
[2021-05-03] MEDS ORDERED: SODIUM CHLORIDE 0.9% INJ 10 ML SYR IV SCH ×3 (09:00)
== END 2021-05-03 09:30 | disposition home or self-care (01) ==
LOC: M INFU 07:23
PROVIDERS: ATTEND Internal Medicine Gastroenterology
DX: E86.0 Dehydration (principal); Z88.5 Allergy status to narcotic agent; Z91.040 Latex allergy status; Z91.041 Radiographic dye allergy status; Z91.048 Other nonmedicinal substance allergy status
CPT/HCPCS: 96360; J1642

== ENCOUNTER 2021-05-10 07:03 | Outpatient (CLI) | payer MEDICARE, OTHER ==
[~2021-05-10] VITALS: Ht 162.6 cm; Wt 78.0 kg
[~2021-05-10 07:03] MED LIST changes: +NS 1,000 ML IV SCH; -SODIUM CHLORIDE 0.9% INJ 10 ML SYR IV PRN
[2021-05-10 07:15] VITALS: BP 119/77
[2021-05-10 08:57] VITALS: BP 138/76
[2021-05-10] MEDS ORDERED: SODIUM CHLORIDE 0.9% INJ 10 ML SYR IV SCH (09:00)
== END 2021-05-10 09:00 | disposition home or self-care (01) ==
LOC: M INFU 07:03
PROVIDERS: ATTEND Internal Medicine Gastroenterology
DX: E86.0 Dehydration (principal); Z88.8 Allergy status to other drugs, medicaments and biological substances; Z91.040 Latex allergy status
CPT/HCPCS: 96360; 96361; J1642

== ENCOUNTER 2021-05-12 07:08 | Outpatient (CLI) | payer MEDICARE, OTHER ==
[~2021-05-12] VITALS: Ht 162.6 cm; Wt 78.0 kg
[2021-05-12 07:14] VITALS: BP 131/62
[2021-05-12] MEDS ORDERED: NS 1,000 ML IV PRN (08:30)
[2021-05-12] MEDS ORDERED: SODIUM CHLORIDE 0.9% INJ 10 ML SYR IV SCH (09:00)
[2021-05-12 09:36] VITALS: BP 127/60
== END 2021-05-12 09:45 | disposition home or self-care (01) ==
LOC: M INFU 07:08
PROVIDERS: ATTEND Internal Medicine Gastroenterology
DX: E86.0 Dehydration (principal); Z88.6 Allergy status to analgesic agent; Z91.048 Other nonmedicinal substance allergy status
CPT/HCPCS: 96360; J1642

== ENCOUNTER 2021-05-24 07:35 | Outpatient (CLI) | payer MEDICARE, OTHER ==
[~2021-05-24] VITALS: Ht 162.6 cm; Wt 78.0 kg
[~2021-05-24 07:35] MED LIST changes: +NS 1,000 ML IV PRN
[2021-05-24 07:54] VITALS: BP 119/76
[2021-05-24] MEDS ORDERED: SODIUM CHLORIDE 0.9% INJ 10 ML SYR IV SCH ×2 (09:00)
[2021-05-24 09:30] VITALS: BP 132/60
== END 2021-05-24 09:30 | disposition home or self-care (01) ==
LOC: M INFU 07:35
PROVIDERS: ATTEND Internal Medicine Gastroenterology
DX: E86.0 Dehydration (principal); Z88.8 Allergy status to other drugs, medicaments and biological substances; Z91.048 Other nonmedicinal substance allergy status; Z91.040 Latex allergy status
CPT/HCPCS: 96360; 96361; J1642

== ENCOUNTER 2021-05-26 07:25 | Outpatient (CLI) | payer MEDICARE, OTHER ==
[~2021-05-26] VITALS: Ht 162.6 cm; Wt 78.0 kg
[~2021-05-26 07:25] MED LIST changes: -NS 1,000 ML IV PRN; -NS 1,000 ML IV SCH
[2021-05-26 07:36] VITALS: BP 130/75
[2021-05-26] MEDS: NS 1,000 ML IV SCH ×2 (07:38→08:45)
[2021-05-26] MEDS ORDERED: SODIUM CHLORIDE 0.9% INJ 10 ML SYR IV SCH (09:00)
[2021-05-26 10:00] VITALS: BP 131/67
== END 2021-05-26 10:10 | disposition home or self-care (01) ==
LOC: M INFU 07:25
PROVIDERS: ATTEND Internal Medicine Gastroenterology
DX: E86.0 Dehydration (principal); Z88.5 Allergy status to narcotic agent; Z88.6 Allergy status to analgesic agent; Z91.041 Radiographic dye allergy status
CPT/HCPCS: 96360; 96361; J1642

== ENCOUNTER 2021-06-02 07:27 | Outpatient (CLI) | payer MEDICARE, OTHER ==
[~2021-06-02] VITALS: Ht 162.6 cm; Wt 78.0 kg
[2021-06-02] MEDS ORDERED: SODIUM CHLORIDE 0.9% INJ 10 ML SYR IV PRN (07:35)
[2021-06-02 07:51] VITALS: BP 115/62
[2021-06-02] MEDS ORDERED: SODIUM CHLORIDE 0.9% INJ 10 ML SYR IV SCH (09:00)
[2021-06-02] MEDS ORDERED: NS 1,000 ML IV SCH (10:00)
[2021-06-02 10:25] VITALS: BP 128/58
== END 2021-06-02 10:30 | disposition home or self-care (01) ==
LOC: M INFU 07:27
PROVIDERS: ATTEND Internal Medicine Gastroenterology
DX: E86.0 Dehydration (principal); Z88.6 Allergy status to analgesic agent; Z91.040 Latex allergy status; Z91.048 Other nonmedicinal substance allergy status
CPT/HCPCS: 96360; 96361; J1642

== ENCOUNTER 2021-06-07 07:57 | Outpatient (CLI) | payer MEDICARE, OTHER ==
[~2021-06-07 07:57] MED LIST changes: +SODIUM CHLORIDE 0.9% INJ 10 ML SYR IV PRN
[2021-06-07 08:08] VITALS: BP 138/64
[2021-06-07] MEDS: NS 1,000 ML IV SCH ×2 (08:15→09:42)
[2021-06-07] MEDS ORDERED: SODIUM CHLORIDE 0.9% INJ 10 ML SYR IV SCH ×2 (09:00)
[2021-06-07 09:41] VITALS: BP 119/61
[2021-06-07 10:08] LABS: HEMATOCRIT 37.4 % (36.0-47.0); HEMOGLOBIN 12.1 g/dl (12.0-15.5); MEAN CORPUSCULAR HEMOGLOBIN 30.7 pg (27.0-33.0); MEAN CORPUSCULAR HGB CONC 32.4 g/dl (32.0-36.5); MEAN CORPUSCULAR VOLUME 94.9 fl (80.0-96.0); PLATELET COUNT, AUTOMATED 323 10^3/uL (150-450); RED BLOOD COUNT 3.94 10^6/uL (4.00-5.40); WHITE BLOOD COUNT 15.3 10^3/uL (4.0-10.0)
[2021-06-07 10:44] LABS: ALBUMIN 3.3 GM/DL (3.2-5.2); ALT/SGPT 29 U/L (12-78); BILIRUBIN,TOTAL 0.2 MG/DL (0.2-1.0); BLOOD UREA NITROGEN 10 MG/DL (7-18); CALCIUM LEVEL 8.8 MG/DL (8.5-10.1); CARBON DIOXIDE LEVEL 25 MEQ/L (21-32); CHLORIDE LEVEL 111 MEQ/L (98-107); CHOLESTEROL LEVEL 243 MG/DL (<200); CHOLESTEROL RISK RATIO 7.363 (<5); GLOMERULAR FILTRATION RATE > 60.0 (>58); GLUCOSE, FASTING 113 MG/DL (70-100); HDL CHOLESTEROL 33 MG/DL (>40); LIPASE 53 U/L (73-393); NON-HDL-C 210 MG/DL; POTASSIUM SERUM 4.2 MEQ/L (3.5-5.1); SODIUM LEVEL 139 MEQ/L (136-145); TOTAL PROTEIN 6.8 GM/DL (6.4-8.2); TRIGLYCERIDES LEVEL 463 MG/DL (<150)
[2021-06-07 11:10] LABS: ERYTHROCYTE SEDIMENTATION RATE 26 mm/hr (0-20)
== END 2021-06-07 09:40 | disposition home or self-care (01) ==
LOC: M INFU 07:57
PROVIDERS: ATTEND Internal Medicine Gastroenterology
DX: E86.0 Dehydration (principal); Z88.5 Allergy status to narcotic agent; Z91.048 Other nonmedicinal substance allergy status
CPT/HCPCS: 36591; 80053; 80061; 83690; 85027; 85652; 86140; 96360; J1642

== ENCOUNTER 2021-06-09 07:11 | Outpatient (CLI) | payer MEDICARE, OTHER ==
[~2021-06-09] VITALS: Ht 162.6 cm; Wt 78.0 kg
[~2021-06-09 07:11] MED LIST changes: +NS 1,000 ML IV SCH; -SODIUM CHLORIDE 0.9% INJ 10 ML SYR IV PRN
[2021-06-09 07:26] VITALS: BP 98/58
[2021-06-09] MEDS ORDERED: SODIUM CHLORIDE 0.9% INJ 10 ML SYR IV SCH (09:00)
[2021-06-09 09:35] VITALS: BP 111/63
== END 2021-06-09 09:40 | disposition home or self-care (01) ==
LOC: M INFU 07:11
PROVIDERS: ATTEND Internal Medicine Gastroenterology
DX: E86.0 Dehydration (principal); Z88.6 Allergy status to analgesic agent; Z88.5 Allergy status to narcotic agent; Z91.041 Radiographic dye allergy status; Z91.040 Latex allergy status
CPT/HCPCS: 96360; 96361; J1642

== ENCOUNTER 2021-06-14 06:58 | Outpatient (CLI) | payer MEDICARE, OTHER ==
[~2021-06-14] VITALS: Ht 162.6 cm; Wt 78.0 kg
[~2021-06-14 06:58] MED LIST changes: -NS 1,000 ML IV SCH
[2021-06-14] MEDS ORDERED: NS 1,000 ML IV SCH (07:00)
[2021-06-14 07:14] VITALS: BP 105/54
[2021-06-14] MEDS: NS 1,000 ML IV SCH ×2 (08:19→09:05)
[2021-06-14] MEDS ORDERED: SODIUM CHLORIDE 0.9% INJ 10 ML SYR IV SCH (09:00)
[2021-06-14 10:00] VITALS: BP 128/78
== END 2021-06-14 10:00 | disposition home or self-care (01) ==
LOC: M INFU 06:58
PROVIDERS: ATTEND Internal Medicine Gastroenterology
DX: E86.0 Dehydration (principal); Z88.8 Allergy status to other drugs, medicaments and biological substances; Z91.040 Latex allergy status; Z91.048 Other nonmedicinal substance allergy status; Z91.041 Radiographic dye allergy status
CPT/HCPCS: 96360; 96361; J1642

== ENCOUNTER 2021-06-16 06:46 | Outpatient (CLI) | payer MEDICARE, OTHER ==
[~2021-06-16] VITALS: Ht 162.6 cm; Wt 78.0 kg
[2021-06-16 06:50] VITALS: BP 132/74
[2021-06-16] MEDS ORDERED: NS 1,000 ML IV SCH ×2 (07:00→07:20)
[2021-06-16 08:18] VITALS: BP 108/57
[2021-06-16] MEDS ORDERED: SODIUM CHLORIDE 0.9% INJ 10 ML SYR IV SCH (09:00)
== END 2021-06-16 08:20 | disposition home or self-care (01) ==
LOC: M INFU 06:46
PROVIDERS: ATTEND Internal Medicine Gastroenterology
DX: E86.0 Dehydration (principal); Z88.6 Allergy status to analgesic agent; Z91.041 Radiographic dye allergy status; Z91.048 Other nonmedicinal substance allergy status
CPT/HCPCS: 96360; J1642

== ENCOUNTER 2021-06-21 07:56 | Outpatient (CLI) | payer MEDICARE, OTHER ==
[~2021-06-21 07:56] MED LIST changes: +NS 1,000 ML IV SCH
[2021-06-21 08:21] VITALS: BP 108/64
[2021-06-21] MEDS ORDERED: NS 1,000 ML IV SCH (08:30)
[2021-06-21 08:35] VITALS: BP 115/68
[2021-06-21] MEDS ORDERED: SODIUM CHLORIDE 0.9% INJ 10 ML SYR IV SCH (09:00)
== END 2021-06-21 09:30 | disposition home or self-care (01) ==
LOC: M INFU 07:56
PROVIDERS: ATTEND Internal Medicine Gastroenterology
DX: E86.0 Dehydration (principal)
CPT/HCPCS: 96360; J1642

== ENCOUNTER 2021-06-24 15:41 | Outpatient (CLI) | payer MEDICARE, OTHER ==
[~2021-06-24] VITALS: Ht 162.6 cm; Wt 78.0 kg
[~2021-06-24 15:41] MED LIST changes: +SODIUM CHLORIDE 0.9% INJ 10 ML SYR IV SCH
[2021-06-24 15:50] VITALS: BP 132/74
[2021-06-24] MEDS ORDERED: NS 1,000 ML IV SCH (16:00)
[2021-06-24 17:30] VITALS: BP 133/78
== END 2021-06-24 17:30 | disposition home or self-care (01) ==
LOC: M INFU 15:41
PROVIDERS: ATTEND Internal Medicine Gastroenterology
DX: E86.0 Dehydration (principal); Z88.8 Allergy status to other drugs, medicaments and biological substances; Z91.041 Radiographic dye allergy status; Z91.048 Other nonmedicinal substance allergy status; Z91.040 Latex allergy status
CPT/HCPCS: 96360; J1642

== ENCOUNTER → 2021-06-29 | Outpatient (CLI) | payer MEDICARE, OTHER ==
[~2021-06-29] MED LIST changes: -NS 1,000 ML IV SCH; +PROHANCE 279.3MG/ML 15ML VIAL ONE; +PROHANCE 279.3MG/ML 5ML VIAL ONE; -SODIUM CHLORIDE 0.9% INJ 10 ML SYR IV SCH
--- NOTE | 2021-06-29 12:51 | REP ---
INDICATION: ELEVATED LFT'S. COMPARISON: 06/05/2013 without MRCP and pre cholecystectomy TECHNIQUE: Pre and post contrast 3T MRI of the liver was performed utilizing various sequences. Gadolinium utilized: 16 cc ProHance FINDINGS: There is mild intrahepatic ductal dilatation. The maximal dimension of the common bile duct is 14 mm in the maximal dimension of the pancreatic duct is 4 mm. Both common bile duct and pancreatic duct are seen to smoothly taper to the ampulla of Vater. No abnormal filling defects are identified. There are no enhancing hepatic lesions. The spleen, pancreas, adrenal glands, and kidneys are seen without evidence of an abnormal mass or enhancement. The abdominal aorta and para-aortic regions are within normal limits. There is no free fluid. There is no evidence of adenopathy. IMPRESSION: There is intrahepatic and extrahepatic ductal dilatation as described above most consistent with the patient's post cholecystectomy state. There is no evidence of an intrinsic or extrinsic ductal mass. There are no enhancing lesions. Inphase and out of phase imaging shows no evidence of fatty infiltration of the liver. Other findings as described above. Follow-up should be considered. <Electronically signed by Yomi Redman > 06/29/21 [id number]
== END ==
LOC: M PLAIMG 10:11
PROVIDERS: ATTEND Internal Medicine Gastroenterology
DX: K51.20 Ulcerative (chronic) proctitis without complications (principal); E86.0 Dehydration; R19.7 Diarrhea, unspecified; R94.5 Abnormal results of liver function studies; Z90.49 Acquired absence of other specified parts of digestive tract
CPT/HCPCS: 74183; A9576

== ENCOUNTER 2021-06-30 08:29 | Outpatient (CLI) | payer MEDICARE, OTHER ==
[~2021-06-30] VITALS: Ht 162.6 cm; Wt 78.0 kg
[~2021-06-30 08:29] MED LIST changes: +NS 1,000 ML IV SCH; -PROHANCE 279.3MG/ML 15ML VIAL ONE; -PROHANCE 279.3MG/ML 5ML VIAL ONE
[2021-06-30 08:32] VITALS: BP 130/87
[2021-06-30] MEDS ORDERED: SODIUM CHLORIDE 0.9% INJ 10 ML SYR IV SCH ×2 (09:00)
[2021-06-30 10:00] VITALS: BP 119/75
== END 2021-06-30 10:00 | disposition home or self-care (01) ==
LOC: M INFU 08:29
PROVIDERS: ATTEND Internal Medicine Gastroenterology
DX: E86.0 Dehydration (principal); Z88.6 Allergy status to analgesic agent; Z88.5 Allergy status to narcotic agent; Z91.040 Latex allergy status; Z88.8 Allergy status to other drugs, medicaments and biological substances
CPT/HCPCS: 96360; J1642

== ENCOUNTER 2021-07-07 07:03 | Outpatient (CLI) | payer MEDICARE, OTHER ==
[~2021-07-07] VITALS: Ht 162.6 cm; Wt 78.0 kg
[2021-07-07 07:18] VITALS: BP 140/70
[2021-07-07] MEDS ORDERED: SODIUM CHLORIDE 0.9% INJ 10 ML SYR IV SCH (09:00)
[2021-07-07 09:24] VITALS: BP 107/62
== END 2021-07-07 09:25 | disposition home or self-care (01) ==
LOC: M INFU 07:03
PROVIDERS: ATTEND Internal Medicine Gastroenterology
DX: E86.0 Dehydration (principal); R19.7 Diarrhea, unspecified; K51.20 Ulcerative (chronic) proctitis without complications; Z88.6 Allergy status to analgesic agent; Z88.8 Allergy status to other drugs, medicaments and biological substances; Z91.040 Latex allergy status
CPT/HCPCS: 96360; 96361; J1642

== ENCOUNTER 2021-07-13 08:26 | Outpatient (CLI) | payer MEDICARE, OTHER ==
[~2021-07-13] VITALS: Ht 162.6 cm; Wt 78.0 kg
[2021-07-13 08:30] VITALS: BP 112/71
[2021-07-13] MEDS ORDERED: NS 1,000 ML IV SCH (08:30)
[2021-07-13] MEDS ORDERED: SODIUM CHLORIDE 0.9% INJ 10 ML SYR IV SCH (09:00)
[2021-07-13 09:14] LABS: HEMATOCRIT 37.9 % (36.0-47.0); HEMOGLOBIN 12.4 g/dl (12.0-15.5); MEAN CORPUSCULAR HEMOGLOBIN 30.7 pg (27.0-33.0); MEAN CORPUSCULAR HGB CONC 32.7 g/dl (32.0-36.5); MEAN CORPUSCULAR VOLUME 93.8 fl (80.0-96.0); PLATELET COUNT, AUTOMATED 359 10^3/uL (150-450); RED BLOOD COUNT 4.04 10^6/uL (4.00-5.40); WHITE BLOOD COUNT 14.3 10^3/uL (4.0-10.0)
[2021-07-13 09:54] LABS: ALBUMIN 3.4 GM/DL (3.2-5.2); ALT/SGPT 28 U/L (12-78); BILIRUBIN,TOTAL 0.1 MG/DL (0.2-1.0); BLOOD UREA NITROGEN 18 MG/DL (7-18); C REACTIVE PROTEIN QUANTITATIV 0.44 MG/DL (0.00-0.30); CALCIUM LEVEL 9.1 MG/DL (8.5-10.1); CARBON DIOXIDE LEVEL 24 MEQ/L (21-32); CHLORIDE LEVEL 106 MEQ/L (98-107); CHOLESTEROL LEVEL 332 MG/DL (<200); CHOLESTEROL RISK RATIO 11.448 (<5); CREATININE FOR GFR 0.57 MG/DL (0.55-1.30); GLOMERULAR FILTRATION RATE > 60.0 (>58); GLUCOSE, FASTING 126 MG/DL (70-100); HDL CHOLESTEROL 29 MG/DL (>40); LIPASE 109 U/L (73-393); NON-HDL-C 303 MG/DL; POTASSIUM SERUM 4.8 MEQ/L (3.5-5.1); SODIUM LEVEL 135 MEQ/L (136-145); TOTAL PROTEIN 7.3 GM/DL (6.4-8.2); TRIGLYCERIDES LEVEL 1295 MG/DL (<150)
[2021-07-13 10:01] LABS: ERYTHROCYTE SEDIMENTATION RATE 44 mm/hr (0-20)
[2021-07-13 10:06] VITALS: BP 113/57
== END 2021-07-13 10:10 | disposition home or self-care (01) ==
LOC: M INFU 08:26
PROVIDERS: ATTEND Internal Medicine Gastroenterology
DX: E86.0 Dehydration (principal); Z88.6 Allergy status to analgesic agent; Z91.040 Latex allergy status
CPT/HCPCS: 36591; 80053; 80061; 83690; 85027; 85652; 86140; 96360; J1642

== ENCOUNTER 2021-07-19 07:00 | Outpatient (CLI) | payer MEDICARE, OTHER ==
[~2021-07-19] VITALS: Ht 162.6 cm; Wt 78.0 kg
[2021-07-19 07:00] VITALS: BP 108/67
[~2021-07-19 07:00] MED LIST changes: -NS 1,000 ML IV SCH
[2021-07-19] MEDS ORDERED: SODIUM CHLORIDE 0.9% INJ 10 ML SYR IV PRN (07:30)
[2021-07-19] MEDS ORDERED: NS 1,000 ML IV SCH (07:30)
[2021-07-19 08:44] VITALS: BP 107/55
[2021-07-19] MEDS ORDERED: SODIUM CHLORIDE 0.9% INJ 10 ML SYR IV SCH ×2 (09:00)
[2021-07-19 09:46] LABS: ALBUMIN 3.5 GM/DL (3.2-5.2); ALT/SGPT 32 U/L (12-78); BILIRUBIN,DIRECT < 0.1 MG/DL (0.0-0.2); BILIRUBIN,TOTAL 0.2 MG/DL (0.2-1.0)
== END 2021-07-19 08:40 | disposition home or self-care (01) ==
LOC: M INFU 07:00
PROVIDERS: ATTEND Internal Medicine Gastroenterology
DX: E86.0 Dehydration (principal); Z88.6 Allergy status to analgesic agent; Z91.040 Latex allergy status
CPT/HCPCS: 36591; 80076; 96360; J1642

== ENCOUNTER 2021-07-26 07:09 | Outpatient (CLI) | payer MEDICARE, OTHER ==
[~2021-07-26] VITALS: Ht 162.6 cm; Wt 78.0 kg
[2021-07-26 07:13] VITALS: BP 95/54
[2021-07-26] MEDS: NS 1,000 ML IV SCH ×2 (07:15→08:27)
[2021-07-26] MEDS ORDERED: SODIUM CHLORIDE 0.9% INJ 10 ML SYR IV SCH (09:00)
== END 2021-07-26 10:15 | disposition home or self-care (01) ==
LOC: M INFU 07:09
PROVIDERS: ATTEND Internal Medicine Gastroenterology
DX: E86.0 Dehydration (principal); Z88.6 Allergy status to analgesic agent; Z88.8 Allergy status to other drugs, medicaments and biological substances
CPT/HCPCS: 96360; 96361; J1642

== ENCOUNTER 2021-08-02 07:29 | Outpatient (CLI) | payer MEDICARE, OTHER ==
[2021-08-02] MEDS ORDERED: NS 1,000 ML IV SCH (07:30)
[2021-08-02] MEDS ORDERED: SODIUM CHLORIDE 0.9% INJ 10 ML SYR IV SCH (09:00)
[2021-08-02 09:13] VITALS: BP 144/67
== END 2021-08-02 09:15 | disposition home or self-care (01) ==
LOC: M INFU 07:29
PROVIDERS: ATTEND Internal Medicine Gastroenterology
DX: E86.0 Dehydration (principal); Z88.5 Allergy status to narcotic agent; Z88.6 Allergy status to analgesic agent; Z91.041 Radiographic dye allergy status; Z91.048 Other nonmedicinal substance allergy status; Z91.040 Latex allergy status
CPT/HCPCS: 96360; 96361; J1642

== ENCOUNTER 2021-08-04 07:27 | Outpatient (CLI) | payer MEDICARE, OTHER ==
[~2021-08-04] VITALS: Ht 162.6 cm; Wt 78.0 kg
[2021-08-04] MEDS: NS 1,000 ML IV SCH ×2 (07:33→08:39)
[2021-08-04 07:40] VITALS: BP 123/69
[2021-08-04] MEDS ORDERED: SODIUM CHLORIDE 0.9% INJ 10 ML SYR IV SCH (09:00)
[2021-08-04 10:46] VITALS: BP 128/78
== END 2021-08-04 10:10 | disposition home or self-care (01) ==
LOC: M INFU 07:27
PROVIDERS: ATTEND Internal Medicine Gastroenterology
DX: E86.0 Dehydration (principal); Z88.5 Allergy status to narcotic agent; Z88.6 Allergy status to analgesic agent; Z91.048 Other nonmedicinal substance allergy status
CPT/HCPCS: 96360; 96361; J1642

== ENCOUNTER 2021-08-09 07:27 | Outpatient (CLI) | payer MEDICARE, OTHER ==
[~2021-08-09] VITALS: Ht 162.6 cm; Wt 78.0 kg
[2021-08-09] MEDS ORDERED: NS 1,000 ML IV SCH (07:30)
[2021-08-09 07:51] VITALS: BP 121/66
[2021-08-09 08:57] VITALS: BP 120/59
[2021-08-09] MEDS ORDERED: SODIUM CHLORIDE 0.9% INJ 10 ML SYR IV SCH (09:00)
== END 2021-08-09 09:00 | disposition home or self-care (01) ==
LOC: M INFU 07:27
PROVIDERS: ATTEND Internal Medicine Gastroenterology
DX: E86.0 Dehydration (principal); Z88.5 Allergy status to narcotic agent; Z88.6 Allergy status to analgesic agent; Z91.048 Other nonmedicinal substance allergy status

== ENCOUNTER 2021-08-16 07:10 | Outpatient (CLI) | payer MEDICARE, OTHER ==
[~2021-08-16] VITALS: Ht 162.6 cm; Wt 78.0 kg
[~2021-08-16 07:10] MED LIST changes: +SODIUM CHLORIDE 0.9% INJ 10 ML SYR IV PRN
[2021-08-16 07:25] VITALS: BP 121/84
[2021-08-16] MEDS ORDERED: NS 1,000 ML IV SCH (07:30)
[2021-08-16] MEDS ORDERED: SODIUM CHLORIDE 0.9% INJ 10 ML SYR IV SCH (09:00)
== END 2021-08-16 09:45 | disposition home or self-care (01) ==
LOC: M INFU 07:10
PROVIDERS: ATTEND Internal Medicine Gastroenterology
DX: E86.0 Dehydration (principal); Z88.8 Allergy status to other drugs, medicaments and biological substances; Z88.6 Allergy status to analgesic agent; Z91.040 Latex allergy status
CPT/HCPCS: 96360; 96361; J1642

== ENCOUNTER 2021-08-18 07:32 | Outpatient (CLI) | payer MEDICARE, OTHER ==
[~2021-08-18] VITALS: Ht 162.6 cm; Wt 78.0 kg
[~2021-08-18 07:32] MED LIST changes: +NS 1,000 ML IV SCH; -SODIUM CHLORIDE 0.9% INJ 10 ML SYR IV PRN
[2021-08-18 07:35] VITALS: BP 116/68
[2021-08-18 08:13] LABS: HEMATOCRIT 35.6 % (36.0-47.0); HEMOGLOBIN 11.6 g/dl (12.0-15.5); MEAN CORPUSCULAR HEMOGLOBIN 30.8 pg (27.0-33.0); MEAN CORPUSCULAR HGB CONC 32.6 g/dl (32.0-36.5); MEAN CORPUSCULAR VOLUME 94.4 fl (80.0-96.0); PLATELET COUNT, AUTOMATED 325 10^3/uL (150-450); RED BLOOD COUNT 3.77 10^6/uL (4.00-5.40); WHITE BLOOD COUNT 12.2 10^3/uL (4.0-10.0)
[2021-08-18 08:48] LABS: ALBUMIN 3.4 GM/DL (3.2-5.2); ALT/SGPT 38 U/L (12-78); BILIRUBIN,TOTAL 0.1 MG/DL (0.2-1.0); BLOOD UREA NITROGEN 13 MG/DL (7-18); CALCIUM LEVEL 8.8 MG/DL (8.5-10.1); CARBON DIOXIDE LEVEL 25 MEQ/L (21-32); CHLORIDE LEVEL 106 MEQ/L (98-107); CHOLESTEROL LEVEL 278 MG/DL (<200); CHOLESTEROL RISK RATIO 9.586 (<5); CREATININE FOR GFR 0.67 MG/DL (0.55-1.30); GLOMERULAR FILTRATION RATE > 60.0 (>58); GLUCOSE, FASTING 152 MG/DL (70-100); HDL CHOLESTEROL 29 MG/DL (>40); LIPASE 70 U/L (73-393); NON-HDL-C 249 MG/DL; SODIUM LEVEL 137 MEQ/L (136-145); TOTAL PROTEIN 6.8 GM/DL (6.4-8.2); TRIGLYCERIDES LEVEL 777 MG/DL (<150)
[2021-08-18 08:53] LABS: ERYTHROCYTE SEDIMENTATION RATE 35 mm/hr (0-20)
[2021-08-18] MEDS ORDERED: SODIUM CHLORIDE 0.9% INJ 10 ML SYR IV SCH (09:00)
[2021-08-18 09:30] VITALS: BP 102/64
== END 2021-08-18 09:20 | disposition home or self-care (01) ==
LOC: M INFU 07:32
PROVIDERS: ATTEND Internal Medicine Gastroenterology
DX: E86.0 Dehydration (principal); R19.7 Diarrhea, unspecified; K51.20 Ulcerative (chronic) proctitis without complications; Z88.6 Allergy status to analgesic agent; Z88.5 Allergy status to narcotic agent; Z91.040 Latex allergy status; Z91.041 Radiographic dye allergy status
CPT/HCPCS: 36591; 80053; 80061; 83690; 85027; 85652; 86140; 96360; J1642

== ENCOUNTER 2021-08-23 09:09 | Outpatient (CLI) | payer MEDICARE, OTHER ==
[~2021-08-23] VITALS: Ht 162.6 cm; Wt 78.0 kg
[~2021-08-23 09:09] MED LIST changes: +SODIUM CHLORIDE 0.9% INJ 10 ML SYR IV SCH
[2021-08-23 09:24] VITALS: BP 125/74
== END 2021-08-23 10:45 | disposition home or self-care (01) ==
LOC: M INFU 09:09
PROVIDERS: ATTEND Internal Medicine Gastroenterology
DX: E86.0 Dehydration (principal); R19.7 Diarrhea, unspecified; K51.20 Ulcerative (chronic) proctitis without complications; Z88.5 Allergy status to narcotic agent; Z88.6 Allergy status to analgesic agent; Z91.048 Other nonmedicinal substance allergy status
CPT/HCPCS: 96360; J1642

== ENCOUNTER 2021-08-30 07:31 | Outpatient (CLI) | payer MEDICARE, OTHER ==
[~2021-08-30] VITALS: Ht 162.6 cm; Wt 78.0 kg
[~2021-08-30 07:31] MED LIST changes: -SODIUM CHLORIDE 0.9% INJ 10 ML SYR IV SCH
[2021-08-30 08:02] VITALS: BP 143/76
[2021-08-30] MEDS ORDERED: SODIUM CHLORIDE 0.9% INJ 10 ML SYR IV SCH (09:00)
[2021-08-30 09:20] VITALS: BP 113/57
== END 2021-08-30 09:20 | disposition home or self-care (01) ==
LOC: M INFU 07:31
PROVIDERS: ATTEND Internal Medicine Gastroenterology
DX: E86.0 Dehydration (principal); R19.7 Diarrhea, unspecified; K51.20 Ulcerative (chronic) proctitis without complications; Z88.5 Allergy status to narcotic agent; Z88.6 Allergy status to analgesic agent; Z91.040 Latex allergy status
CPT/HCPCS: 96360; J1642

== ENCOUNTER 2021-09-06 07:31 | Outpatient (CLI) | payer MEDICARE, OTHER ==
[~2021-09-06] VITALS: Ht 162.6 cm; Wt 78.6 kg
[2021-09-06] MEDS ORDERED: SODIUM CHLORIDE 0.9% INJ 10 ML SYR IV SCH (09:00)
[2021-09-06 10:17] VITALS: BP 131/66
== END 2021-09-06 10:23 | disposition home or self-care (01) ==
LOC: M INFU 07:31
PROVIDERS: ATTEND Internal Medicine Gastroenterology
DX: E86.0 Dehydration (principal); R19.7 Diarrhea, unspecified; K51.20 Ulcerative (chronic) proctitis without complications; Z88.6 Allergy status to analgesic agent; Z91.040 Latex allergy status; Z91.041 Radiographic dye allergy status
CPT/HCPCS: 96360; 96361; J1642

== ENCOUNTER 2021-09-08 07:16 | Outpatient (CLI) | payer MEDICARE, OTHER ==
[~2021-09-08] VITALS: Ht 162.6 cm; Wt 78.0 kg
[~2021-09-08 07:16] MED LIST changes: -NS 1,000 ML IV SCH
[2021-09-08] MEDS ORDERED: SODIUM CHLORIDE 0.9% INJ 10 ML SYR IV SCH (07:30)
[2021-09-08] MEDS ORDERED: NS 1,000 ML IV SCH (07:30)
[2021-09-08 07:31] VITALS: BP 123/72
[2021-09-08 09:10] VITALS: BP 124/65
== END 2021-09-08 09:20 | disposition home or self-care (01) ==
LOC: M INFU 07:16
PROVIDERS: ATTEND Internal Medicine Gastroenterology
DX: E86.0 Dehydration (principal); R19.7 Diarrhea, unspecified; K51.20 Ulcerative (chronic) proctitis without complications; Z88.6 Allergy status to analgesic agent; Z91.040 Latex allergy status; Z91.041 Radiographic dye allergy status
CPT/HCPCS: 96360; 96361; J1642

== ENCOUNTER 2021-09-20 07:15 | Outpatient (CLI) | payer MEDICARE, OTHER ==
[~2021-09-20] VITALS: Ht 162.6 cm; Wt 78.0 kg
[2021-09-20] MEDS: NS 1,000 ML IV SCH ×2 (07:25→08:44)
[2021-09-20] MEDS ORDERED: SODIUM CHLORIDE 0.9% INJ 10 ML SYR IV SCH ×2 (07:30)
[2021-09-20 07:31] VITALS: BP 111/61
[2021-09-20 10:21] VITALS: BP 106/57
== END 2021-09-20 10:23 | disposition home or self-care (01) ==
LOC: M INFU 07:15
PROVIDERS: ATTEND Internal Medicine Gastroenterology
DX: E86.0 Dehydration (principal); R19.7 Diarrhea, unspecified; K51.20 Ulcerative (chronic) proctitis without complications; Z88.6 Allergy status to analgesic agent; Z91.040 Latex allergy status
CPT/HCPCS: 96360; 96361; J1642

== ENCOUNTER 2021-09-22 07:35 | Outpatient (CLI) | payer MEDICARE, OTHER ==
[~2021-09-22] VITALS: Ht 162.6 cm; Wt 78.0 kg
[~2021-09-22 07:35] MED LIST changes: +NS 1,000 ML IV SCH
[2021-09-22 07:47] VITALS: BP 129/78
[2021-09-22] MEDS ORDERED: SODIUM CHLORIDE 0.9% INJ 10 ML SYR IV SCH (09:00)
[2021-09-22 09:05] VITALS: BP 132/78
== END 2021-09-22 09:08 | disposition home or self-care (01) ==
LOC: M INFU 07:35
PROVIDERS: ATTEND Internal Medicine Gastroenterology
DX: E86.0 Dehydration (principal); K51.20 Ulcerative (chronic) proctitis without complications; Z88.6 Allergy status to analgesic agent; Z91.040 Latex allergy status
CPT/HCPCS: 96360; J1642

== ENCOUNTER 2021-09-27 07:47 | Outpatient (CLI) | payer MEDICARE, OTHER ==
[~2021-09-27] VITALS: Ht 162.6 cm; Wt 78.0 kg
[~2021-09-27 07:47] MED LIST changes: -NS 1,000 ML IV SCH
[2021-09-27 08:05] VITALS: BP 126/63
[2021-09-27] MEDS: NS 1,000 ML IV SCH ×2 (08:11→09:16)
[2021-09-27] MEDS ORDERED: SODIUM CHLORIDE 0.9% INJ 10 ML SYR IV SCH (09:00)
[2021-09-27 10:29] VITALS: BP 125/56
== END 2021-09-27 10:30 | disposition home or self-care (01) ==
LOC: M INFU 07:47
PROVIDERS: ATTEND Internal Medicine Gastroenterology
DX: E86.0 Dehydration (principal); R19.7 Diarrhea, unspecified; K51.20 Ulcerative (chronic) proctitis without complications; Z88.6 Allergy status to analgesic agent; Z91.040 Latex allergy status
CPT/HCPCS: 96360; 96361; J1642

== ENCOUNTER 2021-09-29 07:21 | Outpatient (CLI) | payer MEDICARE, OTHER ==
[~2021-09-29] VITALS: Ht 162.6 cm; Wt 78.0 kg
[2021-09-29] MEDS ORDERED: NS 1,000 ML IV SCH (07:30)
[2021-09-29 07:33] VITALS: BP 125/71
[2021-09-29 08:48] VITALS: BP 117/65
[2021-09-29] MEDS ORDERED: SODIUM CHLORIDE 0.9% INJ 10 ML SYR IV SCH (09:00)
== END 2021-09-29 08:50 | disposition home or self-care (01) ==
LOC: M INFU 07:21
PROVIDERS: ATTEND Internal Medicine Gastroenterology
DX: E86.0 Dehydration (principal); R19.7 Diarrhea, unspecified; K51.20 Ulcerative (chronic) proctitis without complications; Z88.6 Allergy status to analgesic agent; Z91.040 Latex allergy status
CPT/HCPCS: 96360; J1642

== ENCOUNTER 2021-10-04 07:16 | Outpatient (CLI) | payer MEDICARE, OTHER ==
[~2021-10-04] VITALS: Ht 162.6 cm; Wt 78.0 kg
[2021-10-04 07:25] VITALS: BP 138/70
[2021-10-04] MEDS ORDERED: NS 1,000 ML IV SCH (07:30)
[2021-10-04] MEDS ORDERED: SODIUM CHLORIDE 0.9% INJ 10 ML SYR IV SCH (09:00)
[2021-10-04 09:20] VITALS: BP 134/79
== END 2021-10-04 13:35 | disposition home or self-care (01) ==
LOC: M INFU 07:16
PROVIDERS: ATTEND Internal Medicine Gastroenterology
DX: E86.0 Dehydration (principal); R19.7 Diarrhea, unspecified; K51.20 Ulcerative (chronic) proctitis without complications; Z91.040 Latex allergy status; Z88.6 Allergy status to analgesic agent
CPT/HCPCS: 96360; 96361; J1642

== ENCOUNTER → 2021-10-11 | Outpatient (CLI) | payer MEDICARE, OTHER ==
[~2021-10-11] VITALS: Ht 162.6 cm; Wt 78.0 kg
[~2021-10-11] MED LIST changes: +NS 1,000 ML IV SCH; +SODIUM CHLORIDE 0.9% INJ 10 ML SYR IV PRN
[2021-10-11 10:20] VITALS: BP 131/59
== END ==
LOC: M INFU 08:46
PROVIDERS: ATTEND Internal Medicine Gastroenterology
DX: E86.0 Dehydration (principal); R19.7 Diarrhea, unspecified; K51.20 Ulcerative (chronic) proctitis without complications; Z88.6 Allergy status to analgesic agent; Z91.040 Latex allergy status
CPT/HCPCS: 96360; J1642

== ENCOUNTER 2021-10-18 06:51 | Outpatient (CLI) | payer MEDICARE, OTHER ==
[~2021-10-18] VITALS: Ht 162.6 cm; Wt 78.0 kg
[~2021-10-18 06:51] MED LIST changes: -NS 1,000 ML IV SCH; -SODIUM CHLORIDE 0.9% INJ 10 ML SYR IV PRN
[2021-10-18] MEDS ORDERED: NS 1,000 ML IV SCH (07:00)
[2021-10-18 07:14] VITALS: BP 121/72
[2021-10-18 07:44] LABS: HEMATOCRIT 38.6 % (36.0-47.0); HEMOGLOBIN 12.9 g/dl (12.0-15.5); MEAN CORPUSCULAR HEMOGLOBIN 30.6 pg (27.0-33.0); MEAN CORPUSCULAR HGB CONC 33.4 g/dl (32.0-36.5); MEAN CORPUSCULAR VOLUME 91.7 fl (80.0-96.0); PLATELET COUNT, AUTOMATED 391 10^3/uL (150-450); RED BLOOD COUNT 4.21 10^6/uL (4.00-5.40); WHITE BLOOD COUNT 13.2 10^3/uL (4.0-10.0)
[2021-10-18 08:05] LABS: BLOOD UREA NITROGEN 14 MG/DL (7-18); CARBON DIOXIDE LEVEL 26 MEQ/L (21-32); CHLORIDE LEVEL 105 MEQ/L (98-107); CHOLESTEROL LEVEL 324 MG/DL (<200); CHOLESTEROL RISK RATIO 8.307 (<5); CREATININE FOR GFR 0.74 MG/DL (0.55-1.30); GLOMERULAR FILTRATION RATE > 60.0 (>58); GLUCOSE, FASTING 109 MG/DL (70-100); HDL CHOLESTEROL 39 MG/DL (>40); LDL CHOLESTEROL 230 MG/DL (<100); LIPASE 84 U/L (73-393); NON-HDL-C 285 MG/DL; POTASSIUM SERUM 4.1 MEQ/L (3.5-5.1); SODIUM LEVEL 138 MEQ/L (136-145); TRIGLYCERIDES LEVEL 275 MG/DL (<150)
[2021-10-18 08:26] LABS: ERYTHROCYTE SEDIMENTATION RATE 37 mm/hr (0-20)
[2021-10-18] MEDS ORDERED: SODIUM CHLORIDE 0.9% INJ 10 ML SYR IV SCH (09:00)
[2021-10-18 09:21] VITALS: BP 111/58
== END 2021-10-18 09:30 | disposition home or self-care (01) ==
LOC: M INFU 06:51
PROVIDERS: ATTEND Internal Medicine Gastroenterology
DX: E86.0 Dehydration (principal); R19.7 Diarrhea, unspecified; K51.20 Ulcerative (chronic) proctitis without complications; Z88.6 Allergy status to analgesic agent; Z91.040 Latex allergy status
CPT/HCPCS: 36591; 80048; 80061; 83690; 85027; 85652; 86140; 96360; 96361; J1642

== ENCOUNTER 2021-10-20 07:50 | Outpatient (CLI) | payer MEDICARE, OTHER ==
[~2021-10-20] VITALS: Ht 162.6 cm; Wt 78.0 kg
[~2021-10-20 07:50] MED LIST changes: +SODIUM CHLORIDE 0.9% INJ 10 ML SYR IV PRN
[2021-10-20] MEDS ORDERED: NS 1,000 ML IV SCH (08:00)
[2021-10-20 08:28] VITALS: BP 131/72
[2021-10-20] MEDS ORDERED: SODIUM CHLORIDE 0.9% INJ 10 ML SYR IV SCH (09:00)
[2021-10-20 09:27] VITALS: BP 129/68
== END 2021-10-20 09:27 | disposition home or self-care (01) ==
LOC: M INFU 07:50
PROVIDERS: ATTEND Internal Medicine Gastroenterology
DX: E86.0 Dehydration (principal); R19.7 Diarrhea, unspecified; K51.20 Ulcerative (chronic) proctitis without complications; Z88.6 Allergy status to analgesic agent; Z91.040 Latex allergy status; Z91.041 Radiographic dye allergy status
CPT/HCPCS: 96360; J1642

== ENCOUNTER 2021-10-25 07:29 | Outpatient (CLI) | payer MEDICARE, OTHER ==
[~2021-10-25] VITALS: Ht 162.6 cm; Wt 78.0 kg
[2021-10-25] MEDS ORDERED: NS 1,000 ML IV SCH (07:30)
[2021-10-25 07:38] VITALS: BP 128/57
[2021-10-25] MEDS ORDERED: SODIUM CHLORIDE 0.9% INJ 10 ML SYR IV SCH (09:00)
== END 2021-10-25 09:35 | disposition home or self-care (01) ==
LOC: M INFU 07:29
PROVIDERS: ATTEND Internal Medicine Gastroenterology
DX: E86.0 Dehydration (principal); R19.7 Diarrhea, unspecified; K51.20 Ulcerative (chronic) proctitis without complications; Z88.6 Allergy status to analgesic agent; Z91.040 Latex allergy status; Z91.041 Radiographic dye allergy status
CPT/HCPCS: 96360; 96361; J1642

== ENCOUNTER 2021-11-03 07:30 | Outpatient (CLI) | payer MEDICARE, OTHER ==
[~2021-11-03] VITALS: Ht 162.6 cm; Wt 78.0 kg
[2021-11-03 07:35] VITALS: BP 122/64
[2021-11-03] MEDS: NS 1,000 ML IV SCH ×2 (07:42→09:16)
[2021-11-03] MEDS ORDERED: SODIUM CHLORIDE 0.9% INJ 10 ML SYR IV SCH (09:00)
[2021-11-03 10:35] VITALS: BP 114/64
== END 2021-11-03 10:35 | disposition home or self-care (01) ==
LOC: M INFU 07:30
PROVIDERS: ATTEND Internal Medicine Gastroenterology
DX: E86.0 Dehydration (principal); R19.7 Diarrhea, unspecified; K51.20 Ulcerative (chronic) proctitis without complications; Z88.6 Allergy status to analgesic agent; Z91.040 Latex allergy status; Z91.041 Radiographic dye allergy status
CPT/HCPCS: 96360; 96361; J1642

== ENCOUNTER 2021-11-08 07:15 | Outpatient (CLI) | payer MEDICARE, OTHER ==
[~2021-11-08] VITALS: Ht 162.6 cm; Wt 78.0 kg
[~2021-11-08 07:15] MED LIST changes: +NS 1,000 ML IV SCH; -SODIUM CHLORIDE 0.9% INJ 10 ML SYR IV PRN
[2021-11-08 07:21] VITALS: BP 120/62
[2021-11-08 08:59] VITALS: BP 118/61
[2021-11-08] MEDS ORDERED: SODIUM CHLORIDE 0.9% INJ 10 ML SYR IV SCH (09:00)
[2021-11-08] MEDS ORDERED: SODIUM CHLORIDE 0.9% INJ 10 ML SYR IV PRN (09:00)
== END 2021-11-08 09:00 | disposition home or self-care (01) ==
LOC: M INFU 07:15
PROVIDERS: ATTEND Internal Medicine Gastroenterology
DX: E86.0 Dehydration (principal); R19.7 Diarrhea, unspecified; K51.20 Ulcerative (chronic) proctitis without complications; Z88.6 Allergy status to analgesic agent; Z91.040 Latex allergy status; Z91.041 Radiographic dye allergy status
CPT/HCPCS: 96365; 96366; J1642

== ENCOUNTER 2021-11-10 07:15 | Outpatient (CLI) | payer MEDICARE, OTHER ==
[~2021-11-10] VITALS: Ht 162.6 cm; Wt 78.0 kg
[~2021-11-10 07:15] MED LIST changes: -NS 1,000 ML IV SCH
[2021-11-10 07:19] VITALS: BP 122/80
[2021-11-10] MEDS ORDERED: SODIUM CHLORIDE 0.9% INJ 10 ML SYR IV PRN (07:30)
[2021-11-10] MEDS ORDERED: NS 1,000 ML IV SCH (07:30)
[2021-11-10] MEDS ORDERED: SODIUM CHLORIDE 0.9% INJ 10 ML SYR IV SCH (07:30)
[2021-11-10 09:05] VITALS: BP 120/98
== END 2021-11-10 09:05 | disposition home or self-care (01) ==
LOC: M INFU 07:15
PROVIDERS: ATTEND Internal Medicine Gastroenterology
DX: E86.0 Dehydration (principal); R19.7 Diarrhea, unspecified; K51.20 Ulcerative (chronic) proctitis without complications; Z88.6 Allergy status to analgesic agent; Z91.040 Latex allergy status; Z91.041 Radiographic dye allergy status
CPT/HCPCS: 96360; 96361; J1642

== ENCOUNTER 2021-11-15 07:59 | Outpatient (CLI) | payer MEDICARE, OTHER ==
[~2021-11-15] VITALS: Ht 162.6 cm; Wt 78.6 kg
[~2021-11-15 07:59] MED LIST changes: +NS 1,000 ML IV SCH; +SODIUM CHLORIDE 0.9% INJ 10 ML SYR IV PRN
[2021-11-15 08:00] VITALS: BP 118/66
[2021-11-15] MEDS ORDERED: SODIUM CHLORIDE 0.9% INJ 10 ML SYR IV SCH (09:00)
[2021-11-15 09:45] VITALS: BP 118/59
== END 2021-11-15 09:45 | disposition home or self-care (01) ==
LOC: M INFU 07:59
PROVIDERS: ATTEND Internal Medicine Gastroenterology
DX: E86.0 Dehydration (principal); R19.7 Diarrhea, unspecified; K51.20 Ulcerative (chronic) proctitis without complications; Z88.6 Allergy status to analgesic agent; Z91.040 Latex allergy status; Z91.041 Radiographic dye allergy status
CPT/HCPCS: 96360; J1642

== ENCOUNTER 2021-11-17 07:20 | Outpatient (CLI) | payer MEDICARE, OTHER ==
[~2021-11-17] VITALS: Ht 162.6 cm; Wt 78.0 kg
[~2021-11-17 07:20] MED LIST changes: -NS 1,000 ML IV SCH; -SODIUM CHLORIDE 0.9% INJ 10 ML SYR IV PRN
[2021-11-17] MEDS ORDERED: NS 1,000 ML IV SCH (07:30)
[2021-11-17] MEDS ORDERED: SODIUM CHLORIDE 0.9% INJ 10 ML SYR IV PRN (07:30)
[2021-11-17 07:33] VITALS: BP 129/73
[2021-11-17 08:46] VITALS: BP 132/71
[2021-11-17] MEDS ORDERED: SODIUM CHLORIDE 0.9% INJ 10 ML SYR IV SCH (09:00)
== END 2021-11-17 08:45 | disposition home or self-care (01) ==
LOC: M INFU 07:20
PROVIDERS: ATTEND Internal Medicine Gastroenterology
DX: E86.0 Dehydration (principal); R19.7 Diarrhea, unspecified; K51.20 Ulcerative (chronic) proctitis without complications; Z88.6 Allergy status to analgesic agent; Z91.040 Latex allergy status; Z91.041 Radiographic dye allergy status
CPT/HCPCS: 96360; J1642

== ENCOUNTER 2021-12-06 06:59 | Outpatient (CLI) | payer MEDICARE, OTHER ==
[~2021-12-06] VITALS: Ht 167.6 cm; Wt 78.0 kg
[2021-12-06] MEDS ORDERED: SODIUM CHLORIDE 0.9% INJ 10 ML SYR IV PRN (07:00)
[2021-12-06] MEDS ORDERED: NS 1,000 ML IV SCH (07:00)
[2021-12-06 07:18] VITALS: BP 140/80
[2021-12-06] MEDS ORDERED: SODIUM CHLORIDE 0.9% INJ 10 ML SYR IV SCH (09:00)
== END 2021-12-06 08:25 | disposition home or self-care (01) ==
LOC: M INFU 06:59
PROVIDERS: ATTEND Internal Medicine Gastroenterology
DX: E86.0 Dehydration (principal); R19.7 Diarrhea, unspecified; K51.20 Ulcerative (chronic) proctitis without complications; Z88.8 Allergy status to other drugs, medicaments and biological substances; Z91.040 Latex allergy status; Z91.041 Radiographic dye allergy status
CPT/HCPCS: 96360; J1642

== ENCOUNTER 2021-12-13 07:37 | Outpatient (CLI) | payer MEDICARE, OTHER ==
[~2021-12-13] VITALS: Ht 167.6 cm; Wt 78.0 kg
[~2021-12-13 07:37] MED LIST changes: +NS 1,000 ML IV SCH; +SODIUM CHLORIDE 0.9% INJ 10 ML SYR IV PRN; +SODIUM CHLORIDE 0.9% INJ 10 ML SYR IV SCH
[2021-12-13 07:54] VITALS: BP 120/60
== END 2021-12-13 10:30 | disposition home or self-care (01) ==
LOC: M INFU 07:37
PROVIDERS: ATTEND Internal Medicine Gastroenterology
DX: E86.0 Dehydration (principal); R19.7 Diarrhea, unspecified; K51.20 Ulcerative (chronic) proctitis without complications; Z88.8 Allergy status to other drugs, medicaments and biological substances; Z91.040 Latex allergy status; Z91.041 Radiographic dye allergy status
CPT/HCPCS: 96365; 96366; J1642

== ENCOUNTER 2021-12-20 10:33 | Emergency (ER) | payer MEDICARE, OTHER ==
[~2021-12-20] VITALS: Ht 162.6 cm; Wt 83.4 kg
[~2021-12-20 10:33] MED LIST changes: -NS 1,000 ML IV SCH; -SODIUM CHLORIDE 0.9% INJ 10 ML SYR IV PRN; -SODIUM CHLORIDE 0.9% INJ 10 ML SYR IV SCH
[2021-12-20 10:35] VITALS: BP 124/72
== END 2021-12-20 14:02 | disposition left against medical advice (07) ==
LOC: M ED 10:33
DX: S93.492A Sprain of other ligament of left ankle, initial encounter (principal); S99.922A Unspecified injury of left foot, initial encounter; X50.9XXA Other and unspecified overexertion or strenuous movements or postures, initial encounter; Y92.018 Other place in single-family (private) house as the place of occurrence of the external cause; Z88.5 Allergy status to narcotic agent; Z88.4 Allergy status to anesthetic agent; Z91.040 Latex allergy status; Z91.041 Radiographic dye allergy status; Z91.048 Other nonmedicinal substance allergy status

== ENCOUNTER 2021-12-22 08:10 | Outpatient (CLI) | payer MEDICARE, OTHER ==
[~2021-12-22] VITALS: Ht 167.6 cm; Wt 76.0 kg
[~2021-12-22 08:10] MED LIST changes: +NS 1,000 ML IV SCH; +SODIUM CHLORIDE 0.9% INJ 10 ML SYR IV PRN
[2021-12-22 08:25] VITALS: BP 122/68
[2021-12-22] MEDS ORDERED: SODIUM CHLORIDE 0.9% INJ 10 ML SYR IV SCH (09:00)
[2021-12-22 09:41] VITALS: BP 111/59
== END 2021-12-22 09:40 | disposition home or self-care (01) ==
LOC: M INFU 08:10
PROVIDERS: ATTEND Internal Medicine Gastroenterology
DX: E86.0 Dehydration (principal); R19.7 Diarrhea, unspecified; K51.20 Ulcerative (chronic) proctitis without complications
CPT/HCPCS: 96365; J1642

== ENCOUNTER 2021-12-29 07:27 | Outpatient (CLI) | payer MEDICARE, OTHER ==
[~2021-12-29] VITALS: Ht 167.6 cm; Wt 78.0 kg
[~2021-12-29 07:27] MED LIST changes: -NS 1,000 ML IV SCH; -SODIUM CHLORIDE 0.9% INJ 10 ML SYR IV PRN
[2021-12-29] MEDS ORDERED: SODIUM CHLORIDE 0.9% INJ 10 ML SYR IV PRN (07:30)
[2021-12-29 07:50] VITALS: BP 116/66
[2021-12-29] MEDS ORDERED: SODIUM CHLORIDE 0.9% INJ 10 ML SYR IV SCH (09:00)
[2021-12-29 09:20] VITALS: BP 112/55
== END 2021-12-29 09:30 | disposition home or self-care (01) ==
LOC: M INFU 07:27
PROVIDERS: ATTEND Internal Medicine Gastroenterology
DX: E86.0 Dehydration (principal); K51.20 Ulcerative (chronic) proctitis without complications; R19.7 Diarrhea, unspecified; Z88.6 Allergy status to analgesic agent; Z91.041 Radiographic dye allergy status; Z91.048 Other nonmedicinal substance allergy status; Z91.040 Latex allergy status
CPT/HCPCS: 96523; J1642

== ENCOUNTER 2022-01-03 07:03 | Outpatient (CLI) | payer MEDICARE, OTHER ==
[~2022-01-03] VITALS: Ht 167.6 cm; Wt 78.0 kg
[~2022-01-03 07:03] MED LIST changes: +NS 1,000 ML IV ONE; +SODIUM CHLORIDE 0.9% INJ 10 ML SYR IV PRN
[2022-01-03 07:26] VITALS: BP 112/75
[2022-01-03] MEDS ORDERED: SODIUM CHLORIDE 0.9% INJ 10 ML SYR IV SCH (09:00)
== END 2022-01-03 09:30 | disposition home or self-care (01) ==
LOC: M INFU 07:03
PROVIDERS: ATTEND Internal Medicine Gastroenterology
DX: R19.7 Diarrhea, unspecified (principal); E86.0 Dehydration; K51.20 Ulcerative (chronic) proctitis without complications
CPT/HCPCS: 96360; J1642

== ENCOUNTER 2022-01-05 07:18 | Outpatient (CLI) | payer MEDICARE, OTHER ==
[~2022-01-05] VITALS: Ht 167.6 cm; Wt 78.0 kg
[~2022-01-05 07:18] MED LIST changes: -NS 1,000 ML IV ONE; -SODIUM CHLORIDE 0.9% INJ 10 ML SYR IV PRN
[2022-01-05] MEDS ORDERED: NS 1,000 ML IV ONE (07:30)
[2022-01-05] MEDS ORDERED: SODIUM CHLORIDE 0.9% INJ 10 ML SYR IV PRN (07:30)
[2022-01-05 07:38] VITALS: BP 113/58
[2022-01-05] MEDS ORDERED: SODIUM CHLORIDE 0.9% INJ 10 ML SYR IV SCH (09:00)
[2022-01-05 09:03] VITALS: BP 120/74
== END 2022-01-05 08:55 | disposition home or self-care (01) ==
LOC: M INFU 07:18
PROVIDERS: ATTEND Internal Medicine Gastroenterology
DX: R19.7 Diarrhea, unspecified (principal); E86.0 Dehydration; K51.20 Ulcerative (chronic) proctitis without complications
CPT/HCPCS: 96360; J1642

== ENCOUNTER 2022-01-10 06:57 | Outpatient (CLI) | payer MEDICARE, OTHER ==
[2022-01-10] MEDS ORDERED: NS 1,000 ML IV SCH (07:00)
[2022-01-10] MEDS ORDERED: SODIUM CHLORIDE 0.9% INJ 10 ML SYR IV PRN (07:00)
[2022-01-10 07:16] VITALS: BP 126/63
[2022-01-10] MEDS ORDERED: SODIUM CHLORIDE 0.9% INJ 10 ML SYR IV SCH (09:00)
[2022-01-10 09:20] VITALS: BP 114/55
== END 2022-01-10 09:20 | disposition home or self-care (01) ==
LOC: M INFU 06:57
PROVIDERS: ATTEND Internal Medicine Gastroenterology
DX: E86.0 Dehydration (principal); R19.7 Diarrhea, unspecified; K51.20 Ulcerative (chronic) proctitis without complications; Z88.6 Allergy status to analgesic agent; Z88.5 Allergy status to narcotic agent; Z88.8 Allergy status to other drugs, medicaments and biological substances; Z91.041 Radiographic dye allergy status; Z91.040 Latex allergy status; Z91.89 Other specified personal risk factors, not elsewhere classified
CPT/HCPCS: 96360; 96361; J1642

== ENCOUNTER 2022-01-17 07:39 | Outpatient (CLI) | payer MEDICARE, OTHER ==
[2022-01-17 07:30] VITALS: BP 120/77
[~2022-01-17 07:39] MED LIST changes: +NS 1,000 ML IV ONE; +SODIUM CHLORIDE 0.9% INJ 10 ML SYR IV PRN
== END 2022-01-17 09:50 | disposition home or self-care (01) ==
LOC: M INFU 07:39
PROVIDERS: ATTEND Internal Medicine Gastroenterology
DX: R19.7 Diarrhea, unspecified (principal); E86.0 Dehydration; K51.20 Ulcerative (chronic) proctitis without complications; Z91.041 Radiographic dye allergy status; Z91.89 Other specified personal risk factors, not elsewhere classified; Z88.6 Allergy status to analgesic agent; Z91.040 Latex allergy status; Z88.5 Allergy status to narcotic agent; Z88.8 Allergy status to other drugs, medicaments and biological substances
CPT/HCPCS: 96365; J1642

== ENCOUNTER 2022-01-24 07:33 | Outpatient (CLI) | payer MEDICARE, OTHER ==
[~2022-01-24] VITALS: Ht 160 cm; Wt 78.0 kg
[~2022-01-24 07:33] MED LIST changes: -SODIUM CHLORIDE 0.9% INJ 10 ML SYR IV PRN
[2022-01-24 07:48] VITALS: BP 131/67
[2022-01-24] MEDS ORDERED: SODIUM CHLORIDE 0.9% INJ 10 ML SYR IV PRN (07:55)
[2022-01-24] MEDS ORDERED: SODIUM CHLORIDE 0.9% INJ 10 ML SYR IV SCH (09:00)
== END 2022-01-24 09:10 | disposition home or self-care (01) ==
LOC: M INFU 07:33
PROVIDERS: ATTEND Internal Medicine Gastroenterology
DX: R19.7 Diarrhea, unspecified (principal); E86.0 Dehydration; K51.20 Ulcerative (chronic) proctitis without complications
CPT/HCPCS: 96360; J1642

== ENCOUNTER 2022-01-26 07:21 | Outpatient (CLI) | payer MEDICARE, OTHER ==
[~2022-01-26] VITALS: Ht 162.6 cm; Wt 79.5 kg
[~2022-01-26 07:21] MED LIST changes: -NS 1,000 ML IV ONE
[2022-01-26] MEDS ORDERED: NS 1,000 ML IV ONE (07:30)
[2022-01-26] MEDS ORDERED: SODIUM CHLORIDE 0.9% INJ 10 ML SYR IV PRN (07:30)
[2022-01-26 07:45] VITALS: BP 134/75
[2022-01-26 10:00] VITALS: BP 133/58
== END 2022-01-26 10:00 | disposition home or self-care (01) ==
LOC: M INFU 07:21
PROVIDERS: ATTEND Internal Medicine Gastroenterology
DX: R19.7 Diarrhea, unspecified (principal); E86.0 Dehydration; K51.20 Ulcerative (chronic) proctitis without complications; Z91.89 Other specified personal risk factors, not elsewhere classified; Z88.6 Allergy status to analgesic agent; Z88.5 Allergy status to narcotic agent; Z88.8 Allergy status to other drugs, medicaments and biological substances; Z91.041 Radiographic dye allergy status; Z91.040 Latex allergy status
CPT/HCPCS: 96360; 96361; J1642

== ENCOUNTER 2022-02-07 07:00 | Outpatient (CLI) | payer MEDICARE, OTHER ==
[~2022-02-07 07:00] MED LIST changes: +SODIUM CHLORIDE 0.9% INJ 10 ML SYR IV PRN
[2022-02-07 07:08] VITALS: BP 113/61
[2022-02-07] MEDS ORDERED: NS 1,000 ML IV SCH (07:30)
[2022-02-07] MEDS ORDERED: SODIUM CHLORIDE 0.9% INJ 10 ML SYR IV SCH (09:00)
[2022-02-07 09:19] VITALS: BP 120/64
== END 2022-02-07 09:20 | disposition home or self-care (01) ==
LOC: M INFU 07:00
PROVIDERS: ATTEND Internal Medicine Gastroenterology
DX: E86.0 Dehydration (principal); R19.7 Diarrhea, unspecified; K51.20 Ulcerative (chronic) proctitis without complications; Z88.6 Allergy status to analgesic agent; Z88.8 Allergy status to other drugs, medicaments and biological substances; Z91.040 Latex allergy status
CPT/HCPCS: 96360; 96361; J1642

== ENCOUNTER → 2022-02-09 | Outpatient (CLI) | payer MEDICARE, OTHER ==
[~2022-02-09] MED LIST changes: +NS 1,000 ML IV SCH; +SODIUM CHLORIDE 0.9% INJ 10 ML SYR IV SCH
== END ==
LOC: M INFU 06:40
PROVIDERS: ATTEND Internal Medicine Gastroenterology
DX: Z53.9 Procedure and treatment not carried out, unspecified reason (principal)

== ENCOUNTER 2022-02-16 07:10 | Outpatient (CLI) | payer MEDICARE, OTHER ==
[~2022-02-16] VITALS: Ht 162.6 cm; Wt 79.5 kg
[~2022-02-16 07:10] MED LIST changes: -NS 1,000 ML IV SCH; -SODIUM CHLORIDE 0.9% INJ 10 ML SYR IV PRN; -SODIUM CHLORIDE 0.9% INJ 10 ML SYR IV SCH
[2022-02-16 07:25] VITALS: BP 141/77
[2022-02-16] MEDS ORDERED: SODIUM CHLORIDE 0.9% INJ 10 ML SYR IV PRN (07:30)
[2022-02-16] MEDS ORDERED: NS 1,000 ML IV SCH (07:30)
[2022-02-16] MEDS ORDERED: SODIUM CHLORIDE 0.9% INJ 10 ML SYR IV SCH (09:00)
== END 2022-02-16 09:00 | disposition home or self-care (01) ==
LOC: M INFU 07:10
PROVIDERS: ATTEND Internal Medicine Gastroenterology
DX: R19.7 Diarrhea, unspecified (principal); E86.0 Dehydration; K51.20 Ulcerative (chronic) proctitis without complications; Z88.6 Allergy status to analgesic agent; Z88.5 Allergy status to narcotic agent; Z88.8 Allergy status to other drugs, medicaments and biological substances; Z91.89 Other specified personal risk factors, not elsewhere classified; Z91.040 Latex allergy status; Z91.041 Radiographic dye allergy status
CPT/HCPCS: 96360; 96361; J1642

== ENCOUNTER 2022-02-21 06:45 | Outpatient (CLI) | payer MEDICARE, OTHER ==
[~2022-02-21] VITALS: Ht 162.6 cm; Wt 80.0 kg
[2022-02-21 06:54] VITALS: BP 125/64
[2022-02-21] MEDS ORDERED: SODIUM CHLORIDE 0.9% INJ 10 ML SYR IV PRN (07:00)
[2022-02-21] MEDS ORDERED: NS 1,000 ML IV SCH (07:00)
[2022-02-21] MEDS ORDERED: SODIUM CHLORIDE 0.9% INJ 10 ML SYR IV SCH (09:00)
[2022-02-21 09:22] VITALS: BP 103/51
== END 2022-02-21 09:20 | disposition home or self-care (01) ==
LOC: M INFU 06:45
PROVIDERS: ATTEND Internal Medicine Gastroenterology
DX: R19.7 Diarrhea, unspecified (principal); E86.0 Dehydration; K51.20 Ulcerative (chronic) proctitis without complications; Z88.6 Allergy status to analgesic agent; Z88.5 Allergy status to narcotic agent; Z91.89 Other specified personal risk factors, not elsewhere classified; Z91.040 Latex allergy status; Z91.041 Radiographic dye allergy status
CPT/HCPCS: 96360; 96361; J1642

== ENCOUNTER 2022-02-23 07:00 | Outpatient (CLI) | payer MEDICARE, OTHER ==
[~2022-02-23] VITALS: Ht 162.6 cm; Wt 80.0 kg
[~2022-02-23 07:00] MED LIST changes: +NS 1,000 ML IV SCH; +SODIUM CHLORIDE 0.9% INJ 10 ML SYR IV PRN
[2022-02-23 07:40] VITALS: BP 113/64
[2022-02-23] MEDS ORDERED: SODIUM CHLORIDE 0.9% INJ 10 ML SYR IV SCH (09:00)
== END 2022-02-23 09:10 | disposition home or self-care (01) ==
LOC: M INFU 07:00
PROVIDERS: ATTEND Internal Medicine Gastroenterology
DX: R19.7 Diarrhea, unspecified (principal); E86.0 Dehydration; K51.20 Ulcerative (chronic) proctitis without complications; Z88.8 Allergy status to other drugs, medicaments and biological substances; Z88.5 Allergy status to narcotic agent; Z88.6 Allergy status to analgesic agent; Z91.89 Other specified personal risk factors, not elsewhere classified; Z91.041 Radiographic dye allergy status; Z91.040 Latex allergy status
CPT/HCPCS: 96360; 96361; J1642

== ENCOUNTER 2022-02-28 06:55 | Outpatient (CLI) | payer MEDICARE, OTHER ==
[~2022-02-28] VITALS: Ht 162.6 cm; Wt 80.0 kg
[~2022-02-28 06:55] MED LIST changes: -NS 1,000 ML IV SCH; -SODIUM CHLORIDE 0.9% INJ 10 ML SYR IV PRN
[2022-02-28] MEDS ORDERED: NS 1,000 ML IV SCH (07:00)
[2022-02-28] MEDS ORDERED: SODIUM CHLORIDE 0.9% INJ 10 ML SYR IV PRN (07:00)
[2022-02-28 07:02] VITALS: BP 117/58
[2022-02-28 08:34] VITALS: BP 99/55
[2022-02-28] MEDS ORDERED: SODIUM CHLORIDE 0.9% INJ 10 ML SYR IV SCH (09:00)
== END 2022-02-28 08:35 | disposition home or self-care (01) ==
LOC: M INFU 06:55
PROVIDERS: ATTEND Internal Medicine Gastroenterology
DX: R19.7 Diarrhea, unspecified (principal); E86.0 Dehydration; K51.20 Ulcerative (chronic) proctitis without complications; Z88.6 Allergy status to analgesic agent; Z88.5 Allergy status to narcotic agent; Z88.8 Allergy status to other drugs, medicaments and biological substances
CPT/HCPCS: 96360; J1642

== ENCOUNTER 2022-03-07 06:55 | Outpatient (CLI) | payer MEDICARE, OTHER ==
[~2022-03-07] VITALS: Ht 162.6 cm; Wt 80.0 kg
[2022-03-07] MEDS ORDERED: NS 1,000 ML IV SCH (07:00)
[2022-03-07] MEDS ORDERED: SODIUM CHLORIDE 0.9% INJ 10 ML SYR IV PRN (07:00)
[2022-03-07] MEDS ORDERED: SODIUM CHLORIDE 0.9% INJ 10 ML SYR IV SCH ×2 (07:00)
[2022-03-07 07:12] VITALS: BP 123/62
[2022-03-07 08:20] VITALS: BP 123/65
== END 2022-03-07 08:20 | disposition home or self-care (01) ==
LOC: M INFU 06:55
PROVIDERS: ATTEND Internal Medicine Gastroenterology
DX: R19.7 Diarrhea, unspecified (principal); E86.0 Dehydration; K51.20 Ulcerative (chronic) proctitis without complications; Z88.6 Allergy status to analgesic agent; Z88.5 Allergy status to narcotic agent; Z88.8 Allergy status to other drugs, medicaments and biological substances
CPT/HCPCS: 96360; J1642

== ENCOUNTER 2022-03-14 07:15 | Outpatient (CLI) | payer MEDICARE, OTHER ==
[~2022-03-14] VITALS: Ht 162.6 cm; Wt 79.5 kg
[~2022-03-14 07:15] MED LIST changes: +NS 1,000 ML IV SCH; +SODIUM CHLORIDE 0.9% INJ 10 ML SYR IV PRN
[2022-03-14 07:25] VITALS: BP 131/79
[2022-03-14 07:48] LABS: HEMATOCRIT 37.3 % (36.0-47.0); HEMOGLOBIN 12.3 g/dl (12.0-15.5); MEAN CORPUSCULAR HEMOGLOBIN 30.6 pg (27.0-33.0); MEAN CORPUSCULAR VOLUME 92.8 fl (80.0-96.0); PLATELET COUNT, AUTOMATED 367 10^3/uL (150-450); RED BLOOD COUNT 4.02 10^6/uL (4.00-5.40); WHITE BLOOD COUNT 11.8 10^3/uL (4.0-10.0)
[2022-03-14 08:14] LABS: ERYTHROCYTE SEDIMENTATION RATE 35 mm/hr (0-20)
[2022-03-14 08:26] LABS: ALBUMIN 3.7 GM/DL (3.2-5.2); ALT/SGPT 26 U/L (12-78); BILIRUBIN,TOTAL 0.5 MG/DL (0.2-1.0); BLOOD UREA NITROGEN 10 MG/DL (7-18); CARBON DIOXIDE LEVEL 21 MEQ/L (21-32); CHLORIDE LEVEL 110 MEQ/L (98-107); CHOLESTEROL LEVEL 300 MG/DL (<200); CREATININE FOR GFR 0.63 MG/DL (0.55-1.30); GLOMERULAR FILTRATION RATE > 60.0 (>58); GLUCOSE, FASTING 101 MG/DL (70-100); HDL CHOLESTEROL 33 MG/DL (>40); NON-HDL-C 267 MG/DL; POTASSIUM SERUM 4.1 MEQ/L (3.5-5.1); SODIUM LEVEL 139 MEQ/L (136-145); TOTAL PROTEIN 7.2 GM/DL (6.4-8.2); TRIGLYCERIDES LEVEL 472 MG/DL (<150)
[2022-03-14 08:55] VITALS: BP 109/57
[2022-03-14] MEDS ORDERED: SODIUM CHLORIDE 0.9% INJ 10 ML SYR IV SCH (09:00)
== END 2022-03-14 08:55 | disposition home or self-care (01) ==
LOC: M INFU 07:15
PROVIDERS: ATTEND Internal Medicine Gastroenterology
DX: R19.7 Diarrhea, unspecified (principal); E86.0 Dehydration; K51.20 Ulcerative (chronic) proctitis without complications; Z88.6 Allergy status to analgesic agent; Z88.5 Allergy status to narcotic agent; Z88.8 Allergy status to other drugs, medicaments and biological substances
CPT/HCPCS: 36591; 80053; 80061; 85027; 85652; 86140; 96360; J1642

== ENCOUNTER 2022-03-16 07:20 | Outpatient (CLI) | payer MEDICARE, OTHER ==
[~2022-03-16 07:20] MED LIST changes: +NS 1,000 ML IV ONE; -NS 1,000 ML IV SCH
[2022-03-16 07:25] VITALS: BP 116/55
== END 2022-03-16 09:40 | disposition home or self-care (01) ==
LOC: M INFU 07:20
PROVIDERS: ATTEND Internal Medicine Gastroenterology
DX: R19.7 Diarrhea, unspecified (principal); E86.0 Dehydration; K51.20 Ulcerative (chronic) proctitis without complications; Z88.6 Allergy status to analgesic agent; Z88.5 Allergy status to narcotic agent; Z91.89 Other specified personal risk factors, not elsewhere classified; Z91.041 Radiographic dye allergy status; Z91.040 Latex allergy status
CPT/HCPCS: 96360; 96361; J1642

== ENCOUNTER 2022-03-21 07:15 | Outpatient (CLI) | payer MEDICARE, OTHER ==
[~2022-03-21] VITALS: Ht 162.6 cm; Wt 79.5 kg
[2022-03-21 07:15] VITALS: BP 124/73
[2022-03-21 08:40] VITALS: BP 97/54
[2022-03-21] MEDS ORDERED: SODIUM CHLORIDE 0.9% INJ 10 ML SYR IV SCH (09:00)
== END 2022-03-21 08:45 | disposition home or self-care (01) ==
LOC: M INFU 07:15
PROVIDERS: ATTEND Internal Medicine Gastroenterology
DX: R19.7 Diarrhea, unspecified (principal); E86.0 Dehydration; K51.20 Ulcerative (chronic) proctitis without complications; Z88.6 Allergy status to analgesic agent; Z88.5 Allergy status to narcotic agent; Z88.8 Allergy status to other drugs, medicaments and biological substances
CPT/HCPCS: 96360; J1642

== ENCOUNTER 2022-03-23 07:00 | Outpatient (CLI) | payer MEDICARE, OTHER ==
[2022-03-23 08:00] VITALS: BP 92/50
[2022-03-23 08:43] VITALS: BP 104/54
[2022-03-23] MEDS ORDERED: SODIUM CHLORIDE 0.9% INJ 10 ML SYR IV SCH (09:00)
== END 2022-03-23 08:40 | disposition home or self-care (01) ==
LOC: M INFU 07:00
PROVIDERS: ATTEND Internal Medicine Gastroenterology
DX: R19.7 Diarrhea, unspecified (principal); E86.0 Dehydration; K51.20 Ulcerative (chronic) proctitis without complications; Z88.5 Allergy status to narcotic agent; Z88.6 Allergy status to analgesic agent; Z88.8 Allergy status to other drugs, medicaments and biological substances
CPT/HCPCS: 96365; J1642

== ENCOUNTER 2022-03-28 06:55 | Outpatient (CLI) | payer MEDICARE, OTHER ==
[~2022-03-28] VITALS: Ht 162.6 cm; Wt 80.0 kg
[~2022-03-28 06:55] MED LIST changes: -NS 1,000 ML IV ONE; -SODIUM CHLORIDE 0.9% INJ 10 ML SYR IV PRN
[2022-03-28] MEDS ORDERED: SODIUM CHLORIDE 0.9% INJ 10 ML SYR IV PRN (07:00)
[2022-03-28] MEDS ORDERED: NS 1,000 ML IV ONE (07:00)
[2022-03-28 07:11] VITALS: BP 115/68
[2022-03-28 08:51] VITALS: BP 121/72
== END 2022-03-28 08:45 | disposition home or self-care (01) ==
LOC: M INFU 06:55
PROVIDERS: ATTEND Internal Medicine Gastroenterology
DX: R19.7 Diarrhea, unspecified (principal); E86.0 Dehydration; K51.20 Ulcerative (chronic) proctitis without complications; Z88.6 Allergy status to analgesic agent; Z88.5 Allergy status to narcotic agent; Z88.8 Allergy status to other drugs, medicaments and biological substances
CPT/HCPCS: 96360; J1642

== ENCOUNTER 2022-04-04 07:00 | Outpatient (CLI) | payer MEDICARE, OTHER ==
[~2022-04-04] VITALS: Ht 162.6 cm; Wt 80.0 kg
[~2022-04-04 07:00] MED LIST changes: +NS 1,000 ML IV ONE; +SODIUM CHLORIDE 0.9% INJ 10 ML SYR IV PRN
[2022-04-04 07:13] VITALS: BP 109/52
[2022-04-04] MEDS ORDERED: SODIUM CHLORIDE 0.9% INJ 10 ML SYR IV SCH (09:00)
== END 2022-04-04 08:30 | disposition home or self-care (01) ==
LOC: M INFU 07:00
PROVIDERS: ATTEND Internal Medicine Gastroenterology
DX: E86.0 Dehydration (principal); Z88.5 Allergy status to narcotic agent; Z88.6 Allergy status to analgesic agent; Z88.8 Allergy status to other drugs, medicaments and biological substances
CPT/HCPCS: 96360; J1642

== ENCOUNTER 2022-04-11 07:00 | Outpatient (CLI) | payer MEDICARE, OTHER ==
[~2022-04-11] VITALS: Ht 162.6 cm; Wt 80.0 kg
[~2022-04-11 07:00] MED LIST changes: -NS 1,000 ML IV ONE; +NS 1,000 ML IV SCH; -SODIUM CHLORIDE 0.9% INJ 10 ML SYR IV PRN
[2022-04-11] MEDS ORDERED: SODIUM CHLORIDE 0.9% INJ 10 ML SYR IV PRN (07:10)
[2022-04-11 07:16] VITALS: BP 129/68
[2022-04-11 08:23] VITALS: BP 134/57
[2022-04-11] MEDS ORDERED: SODIUM CHLORIDE 0.9% INJ 10 ML SYR IV SCH ×2 (09:00)
== END 2022-04-11 08:30 | disposition home or self-care (01) ==
LOC: M INFU 07:00
PROVIDERS: ATTEND Internal Medicine Gastroenterology
DX: E86.0 Dehydration (principal); Z88.6 Allergy status to analgesic agent; Z88.5 Allergy status to narcotic agent; Z88.8 Allergy status to other drugs, medicaments and biological substances
CPT/HCPCS: 96360; J1642

== ENCOUNTER 2022-04-18 06:50 | Outpatient (CLI) | payer MEDICARE, OTHER ==
[~2022-04-18] VITALS: Ht 162.6 cm; Wt 80.0 kg
[~2022-04-18 06:50] MED LIST changes: -NS 1,000 ML IV SCH
[2022-04-18] MEDS ORDERED: NS 1,000 ML IV ONE (07:00)
[2022-04-18] MEDS ORDERED: SODIUM CHLORIDE 0.9% INJ 10 ML SYR IV PRN (07:00)
[2022-04-18 07:01] VITALS: BP 125/71
[2022-04-18 08:15] VITALS: BP 119/55
[2022-04-18] MEDS ORDERED: SODIUM CHLORIDE 0.9% INJ 10 ML SYR IV SCH (09:00)
== END 2022-04-18 08:15 | disposition home or self-care (01) ==
LOC: M INFU 06:50
PROVIDERS: ATTEND Internal Medicine Gastroenterology
DX: E86.0 Dehydration (principal); Z88.6 Allergy status to analgesic agent; Z88.5 Allergy status to narcotic agent; Z88.8 Allergy status to other drugs, medicaments and biological substances
CPT/HCPCS: 96360; J1642

== ENCOUNTER 2022-04-28 15:25 | Outpatient (CLI) | payer MEDICARE, OTHER ==
[~2022-04-28 15:25] MED LIST changes: +NS 1,000 ML IV ONE; +SODIUM CHLORIDE 0.9% INJ 10 ML SYR IV PRN; +SODIUM CHLORIDE 0.9% INJ 10 ML SYR IV SCH
[2022-04-28 15:30] VITALS: BP 143/76
== END 2022-04-28 17:10 | disposition home or self-care (01) ==
LOC: M INFU 15:25
PROVIDERS: ATTEND Internal Medicine Gastroenterology
DX: E86.0 Dehydration (principal); Z88.6 Allergy status to analgesic agent; Z91.040 Latex allergy status; Z91.041 Radiographic dye allergy status; Z91.048 Other nonmedicinal substance allergy status; Z88.8 Allergy status to other drugs, medicaments and biological substances
CPT/HCPCS: 96360; J1642

== ENCOUNTER → 2022-05-02 | Outpatient (CLI) | payer MEDICARE, OTHER | LOC: M INFU 17:21 | PROVIDERS: ATTEND Internal Medicine Gastroenterology | DX: E86.0 Dehydration (principal); Z88.5 Allergy status to narcotic agent; Z88.6 Allergy status to analgesic agent ==

== ENCOUNTER 2022-05-05 14:45 | Outpatient (CLI) | payer MEDICARE, OTHER ==
[~2022-05-05] VITALS: Ht 162.6 cm; Wt 80.0 kg
[2022-05-05 13:54] VITALS: BP 114/62
[2022-05-05 15:15] VITALS: BP 136/65
== END 2022-05-05 15:15 | disposition home or self-care (01) ==
LOC: M INFU 14:45
PROVIDERS: ATTEND Internal Medicine Gastroenterology
DX: E86.0 Dehydration (principal); Z88.6 Allergy status to analgesic agent; Z88.5 Allergy status to narcotic agent
CPT/HCPCS: 96360; J1642

== ENCOUNTER 2022-05-12 14:10 | Outpatient (CLI) | payer MEDICARE, OTHER ==
[~2022-05-12] VITALS: Ht 162.6 cm; Wt 80.0 kg
[2022-05-12 14:10] VITALS: BP 137/83
[2022-05-12 16:05] VITALS: BP 140/79
== END 2022-05-12 16:05 | disposition home or self-care (01) ==
LOC: M INFU 14:10
PROVIDERS: ATTEND Internal Medicine Gastroenterology
DX: E86.0 Dehydration (principal); Z88.6 Allergy status to analgesic agent; Z88.5 Allergy status to narcotic agent; Z88.8 Allergy status to other drugs, medicaments and biological substances
CPT/HCPCS: 96360; 96361; J1642

== ENCOUNTER 2022-05-18 07:00 | Outpatient (CLI) | payer MEDICARE, OTHER ==
[~2022-05-18] VITALS: Ht 162.6 cm; Wt 80.0 kg
[~2022-05-18 07:00] MED LIST changes: -SODIUM CHLORIDE 0.9% INJ 10 ML SYR IV SCH
[2022-05-18 07:16] VITALS: BP 135/71
[2022-05-18 08:30] VITALS: BP 131/73
[2022-05-18] MEDS ORDERED: SODIUM CHLORIDE 0.9% INJ 10 ML SYR IV SCH (09:00)
== END 2022-05-18 08:30 | disposition home or self-care (01) ==
LOC: M INFU 07:00
PROVIDERS: ATTEND Internal Medicine Gastroenterology
DX: E86.0 Dehydration (principal); Z88.6 Allergy status to analgesic agent; Z88.5 Allergy status to narcotic agent
CPT/HCPCS: 96360; J1642

== ENCOUNTER 2022-05-25 07:25 | Outpatient (CLI) | payer MEDICARE, OTHER ==
[~2022-05-25] VITALS: Ht 162.6 cm; Wt 80.0 kg
[~2022-05-25 07:25] MED LIST changes: +SODIUM CHLORIDE 0.9% INJ 10 ML SYR IV SCH
[2022-05-25 07:34] VITALS: BP 134/72
[2022-05-25 08:51] VITALS: BP 110/65
== END 2022-05-25 08:55 | disposition home or self-care (01) ==
LOC: M INFU 07:25
PROVIDERS: ATTEND Internal Medicine Gastroenterology
DX: E86.0 Dehydration (principal); Z88.6 Allergy status to analgesic agent; Z88.5 Allergy status to narcotic agent; Z88.8 Allergy status to other drugs, medicaments and biological substances
CPT/HCPCS: 96360; J1642

== ENCOUNTER 2022-06-01 07:05 | Outpatient (CLI) | payer MEDICARE, OTHER ==
[2022-06-01 07:05] VITALS: BP 127/59
[~2022-06-01 07:05] MED LIST changes: -SODIUM CHLORIDE 0.9% INJ 10 ML SYR IV SCH
[2022-06-01] MEDS ORDERED: SODIUM CHLORIDE 0.9% INJ 10 ML SYR IV SCH ×2 (09:00)
[2022-06-01 09:30] VITALS: BP 128/71
[2022-06-02] MEDS ORDERED: NS 1,000 ML IV ONE (07:00)
[2022-06-02] MEDS ORDERED: SODIUM CHLORIDE 0.9% INJ 10 ML SYR IV PRN (07:00)
[2022-06-02] MEDS ORDERED: SODIUM CHLORIDE 0.9% INJ 10 ML SYR IV SCH (09:00)
== END 2022-06-01 09:30 | disposition home or self-care (01) ==
LOC: M INFU 07:05
PROVIDERS: ATTEND Internal Medicine Gastroenterology
DX: E86.0 Dehydration (principal); Z88.6 Allergy status to analgesic agent; Z88.5 Allergy status to narcotic agent; Z88.8 Allergy status to other drugs, medicaments and biological substances
CPT/HCPCS: 96360; 96361; J1642

== ENCOUNTER 2022-06-08 10:55 | Outpatient (CLI) | payer MEDICARE, OTHER ==
[~2022-06-08] VITALS: Ht 162.6 cm; Wt 86.0 kg
[~2022-06-08 10:55] MED LIST changes: +SODIUM CHLORIDE 0.9% INJ 10 ML SYR IV SCH
[2022-06-08 10:57] VITALS: BP 122/70
[2022-06-08 12:00] VITALS: BP 117/67
== END 2022-06-08 12:05 | disposition home or self-care (01) ==
LOC: M INFU 10:55
PROVIDERS: ATTEND Internal Medicine Gastroenterology
DX: E86.0 Dehydration (principal); Z88.5 Allergy status to narcotic agent; Z88.6 Allergy status to analgesic agent; Z88.8 Allergy status to other drugs, medicaments and biological substances
CPT/HCPCS: 96360; J1642

== ENCOUNTER 2022-06-15 07:00 | Outpatient (CLI) | payer MEDICARE, OTHER ==
[~2022-06-15 07:00] MED LIST changes: -SODIUM CHLORIDE 0.9% INJ 10 ML SYR IV SCH
[2022-06-15 08:02] VITALS: BP 119/68
[2022-06-15] MEDS ORDERED: SODIUM CHLORIDE 0.9% INJ 10 ML SYR IV SCH ×2 (09:00)
== END 2022-06-15 09:00 | disposition home or self-care (01) ==
LOC: M INFU 07:00
PROVIDERS: ATTEND Internal Medicine Gastroenterology
DX: E86.0 Dehydration (principal); Z88.6 Allergy status to analgesic agent; Z91.040 Latex allergy status; Z91.048 Other nonmedicinal substance allergy status; Z91.041 Radiographic dye allergy status
CPT/HCPCS: 96365; J1642

== ENCOUNTER 2022-06-29 09:55 | Outpatient (CLI) | payer MEDICARE, OTHER ==
[~2022-06-29] VITALS: Ht 162.6 cm; Wt 86.0 kg
[~2022-06-29 09:55] MED LIST changes: +SODIUM CHLORIDE 0.9% INJ 10 ML SYR IV SCH
[2022-06-29 10:41] VITALS: BP 131/72
== END 2022-06-29 10:35 | disposition home or self-care (01) ==
LOC: M INFU 09:55
PROVIDERS: ATTEND Internal Medicine Gastroenterology
DX: E86.0 Dehydration (principal); Z91.041 Radiographic dye allergy status; Z91.048 Other nonmedicinal substance allergy status; Z91.040 Latex allergy status; Z88.6 Allergy status to analgesic agent; Z88.4 Allergy status to anesthetic agent
CPT/HCPCS: 96365; J1642

== ENCOUNTER 2022-07-06 07:20 | Outpatient (CLI) | payer MEDICARE, OTHER ==
[~2022-07-06] VITALS: Ht 162.6 cm; Wt 86.8 kg
[~2022-07-06 07:20] MED LIST changes: -SODIUM CHLORIDE 0.9% INJ 10 ML SYR IV SCH
[2022-07-06 07:21] VITALS: BP 126/61
[2022-07-06 08:38] VITALS: BP 139/65
[2022-07-06] MEDS ORDERED: SODIUM CHLORIDE 0.9% INJ 10 ML SYR IV SCH ×2 (09:00)
== END 2022-07-06 08:40 | disposition home or self-care (01) ==
LOC: M INFU 07:20
PROVIDERS: ATTEND Internal Medicine Gastroenterology
DX: E86.0 Dehydration (principal); Z88.6 Allergy status to analgesic agent; Z88.5 Allergy status to narcotic agent; Z88.8 Allergy status to other drugs, medicaments and biological substances
CPT/HCPCS: 96360; J1642

== ENCOUNTER 2022-07-20 07:00 | Outpatient (CLI) | payer MEDICARE, OTHER ==
[~2022-07-20] VITALS: Ht 162.6 cm; Wt 86.4 kg
[2022-07-20 07:13] VITALS: BP 127/66
[2022-07-20 08:30] VITALS: BP 136/72
== END 2022-07-20 08:30 | disposition home or self-care (01) ==
LOC: M INFU 07:00
PROVIDERS: ATTEND Internal Medicine Gastroenterology
DX: E86.0 Dehydration (principal); Z88.6 Allergy status to analgesic agent; Z88.5 Allergy status to narcotic agent; Z88.3 Allergy status to other anti-infective agents
CPT/HCPCS: 96360; J1642

== ENCOUNTER 2022-08-01 07:10 | Outpatient (CLI) | payer MEDICARE, OTHER ==
[~2022-08-01] VITALS: Ht 162.6 cm; Wt 86.0 kg
[2022-08-01 07:33] VITALS: BP 123/74
[2022-08-01 08:30] VITALS: BP 115/63
[2022-08-01] MEDS ORDERED: SODIUM CHLORIDE 0.9% INJ 10 ML SYR IV SCH (09:00)
== END 2022-08-01 08:30 | disposition home or self-care (01) ==
LOC: M INFU 07:10
PROVIDERS: ATTEND Internal Medicine Gastroenterology
DX: E86.0 Dehydration (principal); Z88.6 Allergy status to analgesic agent; Z88.5 Allergy status to narcotic agent; Z88.8 Allergy status to other drugs, medicaments and biological substances; Z88.3 Allergy status to other anti-infective agents
CPT/HCPCS: 96360; J1642

== ENCOUNTER → 2022-08-03 | Outpatient (CLI) | payer MEDICARE, OTHER ==
[~2022-08-03] MED LIST changes: -NS 1,000 ML IV ONE; -SODIUM CHLORIDE 0.9% INJ 10 ML SYR IV PRN
== END ==
LOC: M WUC 15:01
PROVIDERS: ATTEND Family Medicine
DX: M23.91 Unspecified internal derangement of right knee (principal)

== ENCOUNTER 2022-08-10 11:40 | Outpatient (CLI) | payer MEDICARE, OTHER ==
[~2022-08-10 11:40] MED LIST changes: +NS 1,000 ML IV ONE; +SODIUM CHLORIDE 0.9% INJ 10 ML SYR IV PRN; +SODIUM CHLORIDE 0.9% INJ 10 ML SYR IV SCH
[2022-08-10 11:57] VITALS: BP 142/76
[2022-08-10 12:59] VITALS: BP 132/72
== END 2022-08-10 13:00 | disposition home or self-care (01) ==
LOC: M INFU 11:40
PROVIDERS: ATTEND Internal Medicine Gastroenterology
DX: E86.0 Dehydration (principal); Z88.6 Allergy status to analgesic agent; Z88.5 Allergy status to narcotic agent; Z88.8 Allergy status to other drugs, medicaments and biological substances
CPT/HCPCS: 96360; J1642

== ENCOUNTER 2022-08-15 08:25 | Outpatient (CLI) | payer MEDICARE, OTHER ==
[~2022-08-15] VITALS: Ht 157.5 cm; Wt 86.0 kg
[~2022-08-15 08:25] MED LIST changes: -SODIUM CHLORIDE 0.9% INJ 10 ML SYR IV SCH
[2022-08-15 08:30] VITALS: BP 115/83
[2022-08-15] MEDS ORDERED: SODIUM CHLORIDE 0.9% INJ 10 ML SYR IV SCH (09:00)
[2022-08-15 09:45] VITALS: BP 121/81
== END 2022-08-15 09:45 ==
LOC: M INFU 08:25
PROVIDERS: ATTEND Internal Medicine Gastroenterology
DX: E86.0 Dehydration (principal); Z88.6 Allergy status to analgesic agent; Z88.3 Allergy status to other anti-infective agents; Z88.8 Allergy status to other drugs, medicaments and biological substances; Z88.5 Allergy status to narcotic agent
CPT/HCPCS: 96360; J1642

== ENCOUNTER 2022-08-24 13:05 | Outpatient (CLI) | payer MEDICARE, OTHER ==
[~2022-08-24] VITALS: Ht 165.1 cm; Wt 86.0 kg
[~2022-08-24 13:05] MED LIST changes: +NS 1,000 ML IV ONE; +SODIUM CHLORIDE 0.9% INJ 10 ML SYR IV PRN; +SODIUM CHLORIDE 0.9% INJ 10 ML SYR IV SCH
== END 2022-08-24 14:40 | disposition home or self-care (01) ==
LOC: M INFU 13:05
PROVIDERS: ATTEND Internal Medicine Gastroenterology
DX: E86.0 Dehydration (principal); Z88.6 Allergy status to analgesic agent; Z91.048 Other nonmedicinal substance allergy status; Z91.041 Radiographic dye allergy status; M23.91 Unspecified internal derangement of right knee; M94.261 Chondromalacia, right knee; M71.21 Synovial cyst of popliteal space [Baker], right knee

== ENCOUNTER → 2022-08-24 | Outpatient (CLI) | payer MEDICARE, OTHER ==
[~2022-08-24] MED LIST changes: -NS 1,000 ML IV ONE; -SODIUM CHLORIDE 0.9% INJ 10 ML SYR IV PRN
== END ==
LOC: M PLARAD 09:27
PROVIDERS: ATTEND Family Medicine
DX: M23.91 Unspecified internal derangement of right knee (principal); M94.261 Chondromalacia, right knee; M71.21 Synovial cyst of popliteal space [Baker], right knee

== ENCOUNTER 2022-08-31 14:55 | Outpatient (CLI) | payer MEDICARE, OTHER ==
[~2022-08-31] VITALS: Ht 157.5 cm; Wt 86.0 kg
[2022-08-31 14:57] VITALS: BP 126/59
[2022-08-31 16:15] VITALS: BP 134/64
== END 2022-08-31 16:15 | disposition home or self-care (01) ==
LOC: M INFU 14:55
PROVIDERS: ATTEND Internal Medicine Gastroenterology
DX: E86.0 Dehydration (principal); Z88.6 Allergy status to analgesic agent; Z88.5 Allergy status to narcotic agent; Z88.3 Allergy status to other anti-infective agents

== ENCOUNTER → 2022-09-07 | Outpatient (CLI) | payer MEDICARE, OTHER ==
[~2022-09-07] VITALS: Ht 162.6 cm; Wt 86.4 kg
[~2022-09-07] MED LIST changes: -SODIUM CHLORIDE 0.9% INJ 10 ML SYR IV SCH
[2022-09-07 07:15] VITALS: BP 134/60
== END ==
LOC: M INFU 07:00
PROVIDERS: ATTEND Internal Medicine Gastroenterology
DX: E86.0 Dehydration (principal); Z88.6 Allergy status to analgesic agent; Z88.5 Allergy status to narcotic agent; Z88.3 Allergy status to other anti-infective agents; Z88.8 Allergy status to other drugs, medicaments and biological substances

== ENCOUNTER 2022-09-12 07:10 | Outpatient (CLI) | payer MEDICARE, OTHER ==
[~2022-09-12] VITALS: Ht 162.6 cm; Wt 86.0 kg
[2022-09-12 08:42] VITALS: BP 101/53
[2022-09-12] MEDS ORDERED: SODIUM CHLORIDE 0.9% INJ 10 ML SYR IV SCH ×2 (09:00)
== END 2022-09-12 08:45 | disposition home or self-care (01) ==
LOC: M INFU 07:10
PROVIDERS: ATTEND Internal Medicine Gastroenterology
DX: E86.0 Dehydration (principal); Z88.6 Allergy status to analgesic agent; Z88.5 Allergy status to narcotic agent; Z88.3 Allergy status to other anti-infective agents; Z88.8 Allergy status to other drugs, medicaments and biological substances
CPT/HCPCS: 96360; J1642

== ENCOUNTER 2022-09-21 12:00 | Outpatient (CLI) | payer MEDICARE, OTHER ==
[~2022-09-21] VITALS: Ht 162.6 cm; Wt 86.0 kg
[~2022-09-21 12:00] MED LIST changes: +SODIUM CHLORIDE 0.9% INJ 10 ML SYR IV SCH
[2022-09-21 12:14] VITALS: BP 141/65
[2022-09-21 14:20] VITALS: BP 125/67
== END 2022-09-21 14:30 | disposition home or self-care (01) ==
LOC: M INFU 12:00
PROVIDERS: ATTEND Internal Medicine Gastroenterology
DX: E86.0 Dehydration (principal); Z88.8 Allergy status to other drugs, medicaments and biological substances; Z88.6 Allergy status to analgesic agent; Z91.041 Radiographic dye allergy status; Z91.048 Other nonmedicinal substance allergy status
CPT/HCPCS: 96360; 96361; J1642

== ENCOUNTER 2022-09-26 06:55 | Outpatient (CLI) | payer MEDICARE, OTHER ==
[~2022-09-26] VITALS: Ht 162.6 cm; Wt 86.0 kg
[~2022-09-26 06:55] MED LIST changes: -NS 1,000 ML IV ONE; -SODIUM CHLORIDE 0.9% INJ 10 ML SYR IV PRN; -SODIUM CHLORIDE 0.9% INJ 10 ML SYR IV SCH
[2022-09-26] MEDS ORDERED: NS 1,000 ML IV ONE (07:00)
[2022-09-26] MEDS ORDERED: SODIUM CHLORIDE 0.9% INJ 10 ML SYR IV SCH ×2 (07:00)
[2022-09-26] MEDS ORDERED: SODIUM CHLORIDE 0.9% INJ 10 ML SYR IV PRN (07:00)
[2022-09-26 07:04] VITALS: BP 131/79
[2022-09-26 08:25] VITALS: BP 134/72
== END 2022-09-26 08:30 | disposition home or self-care (01) ==
LOC: M INFU 06:55
PROVIDERS: ATTEND Internal Medicine Gastroenterology
DX: E86.0 Dehydration (principal); Z88.4 Allergy status to anesthetic agent; Z88.6 Allergy status to analgesic agent; Z91.040 Latex allergy status; Z91.041 Radiographic dye allergy status
CPT/HCPCS: 96365; J1642

== ENCOUNTER 2022-09-28 08:45 | Outpatient (CLI) | payer MEDICARE, OTHER ==
[~2022-09-28] VITALS: Ht 162.6 cm; Wt 86.0 kg
[~2022-09-28 08:45] MED LIST changes: +NS 1,000 ML IV ONE; +SODIUM CHLORIDE 0.9% INJ 10 ML SYR IV PRN; +SODIUM CHLORIDE 0.9% INJ 10 ML SYR IV SCH
[2022-09-28 08:49] VITALS: BP 133/62
[2022-09-28 10:02] VITALS: BP 113/53
== END 2022-09-28 10:00 | disposition home or self-care (01) ==
LOC: M INFU 08:45
PROVIDERS: ATTEND Internal Medicine Gastroenterology
DX: E86.0 Dehydration (principal); Z88.6 Allergy status to analgesic agent; Z91.041 Radiographic dye allergy status; Z91.040 Latex allergy status
CPT/HCPCS: 96365; J1642

== ENCOUNTER 2022-10-03 07:10 | Outpatient (CLI) | payer MEDICARE, OTHER ==
[~2022-10-03] VITALS: Ht 162.6 cm; Wt 86.4 kg
[2022-10-03 07:10] VITALS: BP 116/60
[~2022-10-03 07:10] MED LIST changes: -OXYC-403 PO; +OXYC-673 PO; -SODIUM CHLORIDE 0.9% INJ 10 ML SYR IV PRN; -SODIUM CHLORIDE 0.9% INJ 10 ML SYR IV SCH
[2022-10-03] MEDS ORDERED: SODIUM CHLORIDE 0.9% INJ 10 ML SYR IV PRN (07:30)
[2022-10-03 07:41] LABS: HEMATOCRIT 37.9 % (36.0-47.0); HEMOGLOBIN 12.6 g/dl (12.0-15.5); MEAN CORPUSCULAR HEMOGLOBIN 31.3 pg (27.0-33.0); MEAN CORPUSCULAR HGB CONC 33.2 g/dl (32.0-36.5); MEAN CORPUSCULAR VOLUME 94.3 fl (80.0-96.0); PLATELET COUNT, AUTOMATED 334 10^3/uL (150-450); RED BLOOD COUNT 4.02 10^6/uL (4.00-5.40); WHITE BLOOD COUNT 14.4 10^3/uL (4.0-10.0)
[2022-10-03 08:40] VITALS: BP 112/68
[2022-10-03 08:58] LABS: ERYTHROCYTE SEDIMENTATION RATE 49 mm/hr (0-20)
[2022-10-03] MEDS ORDERED: SODIUM CHLORIDE 0.9% INJ 10 ML SYR IV SCH (09:00)
[2022-10-03 13:36] LABS: ALBUMIN 4.1 G/DL (3.2-5.2); ALKALINE PHOSPHATASE 115 U/L (46-116); ALT/SGPT 30 U/L (7.0-40); AST/SGOT 34 U/L (<34); BILIRUBIN,TOTAL 0.2 MG/DL (0.3-1.2); BLOOD UREA NITROGEN 18 MG/DL (9-23); C REACTIVE PROTEIN QUANTITATIV < 0.40 MG/DL (<1.0); CALCIUM LEVEL 9.2 MG/DL (8.5-10.1); CARBON DIOXIDE LEVEL 16 MMOL/L (20-31); CHLORIDE LEVEL 106 MMOL/L (98-107); CREATININE FOR GFR 0.63 MG/DL (0.55-1.30); GLOMERULAR FILTRATION RATE > 60.0 (>58); GLUCOSE, FASTING 89 MG/DL (60-100); POTASSIUM SERUM 4.5 MMOL/L (3.5-5.1); SODIUM LEVEL 136 MMOL/L (136-145); TOTAL PROTEIN 7.2 G/DL (5.7-8.2)
== END 2022-10-03 08:40 | disposition home or self-care (01) ==
LOC: M INFU 07:10
PROVIDERS: ATTEND Internal Medicine Gastroenterology
DX: E86.0 Dehydration (principal); Z88.6 Allergy status to analgesic agent; Z88.5 Allergy status to narcotic agent; Z88.3 Allergy status to other anti-infective agents; Z88.8 Allergy status to other drugs, medicaments and biological substances

== ENCOUNTER 2022-10-05 07:09 | Outpatient (CLI) | payer MEDICARE, OTHER ==
[~2022-10-05] VITALS: Ht 162.6 cm; Wt 86.0 kg
[~2022-10-05 07:09] MED LIST changes: -NS 1,000 ML IV ONE; +SODIUM CHLORIDE 0.9% INJ 10 ML SYR IV PRN; +SODIUM CHLORIDE 0.9% INJ 10 ML SYR IV SCH
[2022-10-05 07:30] VITALS: BP 126/87
[2022-10-05] MEDS: NS 1,000 ML IV ONE ×2 (07:30→08:02)
[2022-10-05 08:45] VITALS: BP 118/88
== END 2022-10-05 08:45 | disposition home or self-care (01) ==
LOC: M INFU 07:09
PROVIDERS: ATTEND Internal Medicine Gastroenterology
DX: E86.0 Dehydration (principal); Z88.5 Allergy status to narcotic agent; Z88.3 Allergy status to other anti-infective agents; Z88.8 Allergy status to other drugs, medicaments and biological substances; Z88.6 Allergy status to analgesic agent

== ENCOUNTER 2022-10-12 07:15 | Outpatient (CLI) | payer MEDICARE, OTHER ==
[~2022-10-12] VITALS: Ht 167.6 cm; Wt 86.0 kg
[~2022-10-12 07:15] MED LIST changes: +NS 1,000 ML IV ONE; +OXYC-403 PO; -OXYC-673 PO; -SODIUM CHLORIDE 0.9% INJ 10 ML SYR IV SCH
[2022-10-12 07:17] VITALS: BP 124/81
[2022-10-12 08:45] VITALS: BP 129/85
== END 2022-10-12 08:45 | disposition home or self-care (01) ==
LOC: M INFU 07:15
PROVIDERS: ATTEND Internal Medicine Gastroenterology
DX: E86.0 Dehydration (principal); Z88.5 Allergy status to narcotic agent; Z88.6 Allergy status to analgesic agent; Z88.8 Allergy status to other drugs, medicaments and biological substances; Z88.3 Allergy status to other anti-infective agents
CPT/HCPCS: 96360; J1642

== ENCOUNTER 2022-10-19 14:30 | Outpatient (CLI) | payer MEDICARE, OTHER ==
[2022-10-19 14:30] VITALS: BP 149/79
[~2022-10-19 14:30] MED LIST changes: -OXYC-403 PO; +OXYC-673 PO; +SODIUM CHLORIDE 0.9% INJ 10 ML SYR IV SCH
[2022-10-19 15:45] VITALS: BP 142/75
== END 2022-10-19 15:50 | disposition home or self-care (01) ==
LOC: M INFU 14:30
PROVIDERS: ATTEND Internal Medicine Gastroenterology
DX: E86.0 Dehydration (principal); Z88.6 Allergy status to analgesic agent; Z88.5 Allergy status to narcotic agent; Z88.3 Allergy status to other anti-infective agents; Z88.8 Allergy status to other drugs, medicaments and biological substances
CPT/HCPCS: 96360; J1642

== ENCOUNTER 2022-10-26 07:15 | Outpatient (CLI) | payer MEDICARE, OTHER ==
[~2022-10-26] VITALS: Ht 165.1 cm; Wt 86.0 kg
[~2022-10-26 07:15] MED LIST changes: -SODIUM CHLORIDE 0.9% INJ 10 ML SYR IV SCH
[2022-10-26 07:20] VITALS: BP 112/68
[2022-10-26 08:36] VITALS: BP 103/50
[2022-10-26] MEDS ORDERED: SODIUM CHLORIDE 0.9% INJ 10 ML SYR IV SCH (09:00)
== END 2022-10-26 08:35 | disposition home or self-care (01) ==
LOC: M INFU 07:15
PROVIDERS: ATTEND Internal Medicine Gastroenterology
DX: E86.0 Dehydration (principal); Z88.6 Allergy status to analgesic agent; Z88.5 Allergy status to narcotic agent; Z88.3 Allergy status to other anti-infective agents; Z88.8 Allergy status to other drugs, medicaments and biological substances
CPT/HCPCS: 96360; J1642

== ENCOUNTER 2022-10-31 07:15 | Outpatient (CLI) | payer MEDICARE, OTHER ==
[~2022-10-31] VITALS: Ht 165.1 cm; Wt 86.0 kg
[2022-10-31 07:24] VITALS: BP 124/78
[2022-10-31 08:42] VITALS: BP 134/82
[2022-10-31] MEDS ORDERED: SODIUM CHLORIDE 0.9% INJ 10 ML SYR IV SCH (09:00)
== END 2022-10-31 08:45 | disposition home or self-care (01) ==
LOC: M INFU 07:15
PROVIDERS: ATTEND Internal Medicine Gastroenterology
DX: E86.0 Dehydration (principal); Z88.6 Allergy status to analgesic agent; Z88.5 Allergy status to narcotic agent; Z88.3 Allergy status to other anti-infective agents; Z88.8 Allergy status to other drugs, medicaments and biological substances
CPT/HCPCS: 96360; J1642

== ENCOUNTER 2022-11-16 07:20 | Outpatient (CLI) | payer MEDICARE, OTHER ==
[~2022-11-16 07:20] MED LIST changes: +SODIUM CHLORIDE 0.9% INJ 10 ML SYR IV SCH
[2022-11-16 07:36] VITALS: BP 129/66
[2022-11-16 08:40] VITALS: BP 129/74
== END 2022-11-16 08:40 | disposition home or self-care (01) ==
LOC: M INFU 07:20
PROVIDERS: ATTEND Internal Medicine Gastroenterology
DX: E86.0 Dehydration (principal); Z88.6 Allergy status to analgesic agent; Z88.5 Allergy status to narcotic agent; Z88.3 Allergy status to other anti-infective agents

== ENCOUNTER 2022-11-23 07:00 | Outpatient (CLI) | payer MEDICARE, OTHER ==
[~2022-11-23] VITALS: Ht 162.6 cm; Wt 75.0 kg
[2022-11-23 07:00] VITALS: BP 111/62
[~2022-11-23 07:00] MED LIST changes: -SODIUM CHLORIDE 0.9% INJ 10 ML SYR IV SCH
[2022-11-23 07:46] LABS: HEMATOCRIT 39.8 % (36.0-47.0); HEMOGLOBIN 13.2 g/dl (12.0-15.5); MEAN CORPUSCULAR HEMOGLOBIN 31.2 pg (27.0-33.0); MEAN CORPUSCULAR HGB CONC 33.2 g/dl (32.0-36.5); MEAN CORPUSCULAR VOLUME 94.1 fl (80.0-96.0); PLATELET COUNT, AUTOMATED 359 10^3/uL (150-450); RED BLOOD COUNT 4.23 10^6/uL (4.00-5.40); WHITE BLOOD COUNT 12.5 10^3/uL (4.0-10.0)
[2022-11-23 08:12] LABS: ALBUMIN 4.2 G/DL (3.2-5.2); ALKALINE PHOSPHATASE 108 U/L (46-116); ALT/SGPT 63 U/L (7.0-40); AST/SGOT 18 U/L (<34); BILIRUBIN,TOTAL 0.7 MG/DL (0.3-1.2); BLOOD UREA NITROGEN 13 MG/DL (9-23); C REACTIVE PROTEIN QUANTITATIV < 0.40 MG/DL (<1.0); CALCIUM LEVEL 9.4 MG/DL (8.5-10.1); CARBON DIOXIDE LEVEL 25 MMOL/L (20-31); CHLORIDE LEVEL 106 MMOL/L (98-107); CREATININE FOR GFR 0.75 MG/DL (0.55-1.30); GLOMERULAR FILTRATION RATE > 60.0 (>58); GLUCOSE, FASTING 99 MG/DL (60-100); POTASSIUM SERUM 3.9 MMOL/L (3.5-5.1); SODIUM LEVEL 139 MMOL/L (136-145); TOTAL PROTEIN 7.5 G/DL (5.7-8.2)
[2022-11-23 08:39] VITALS: BP 92/55
[2022-11-23] MEDS ORDERED: SODIUM CHLORIDE 0.9% INJ 10 ML SYR IV SCH (09:00)
[2022-11-23 09:02] LABS: ERYTHROCYTE SEDIMENTATION RATE 58 mm/hr (0-20)
== END 2022-11-23 08:40 | disposition home or self-care (01) ==
LOC: M INFU 07:00
PROVIDERS: ATTEND Internal Medicine Gastroenterology
DX: E86.0 Dehydration (principal); Z88.6 Allergy status to analgesic agent; Z88.5 Allergy status to narcotic agent; Z88.3 Allergy status to other anti-infective agents; Z91.041 Radiographic dye allergy status

== ENCOUNTER 2022-12-07 07:17 | Outpatient (CLI) | payer MEDICARE, OTHER ==
[~2022-12-07] VITALS: Ht 165.1 cm; Wt 86.0 kg
[~2022-12-07 07:17] MED LIST changes: -NS 1,000 ML IV ONE; +NS 1,000 ML IV SCH
[2022-12-07 07:22] VITALS: BP 149/64
[2022-12-07 08:41] VITALS: BP 119/59
[2022-12-07] MEDS ORDERED: SODIUM CHLORIDE 0.9% INJ 10 ML SYR IV SCH (09:00)
== END 2022-12-07 08:35 ==
LOC: M INFU 07:17
PROVIDERS: ATTEND Internal Medicine Gastroenterology
DX: E86.0 Dehydration (principal); Z88.5 Allergy status to narcotic agent; Z88.3 Allergy status to other anti-infective agents; Z88.8 Allergy status to other drugs, medicaments and biological substances

== ENCOUNTER → 2022-12-14 | Outpatient (CLI) | payer MEDICARE, OTHER ==
[~2022-12-14] VITALS: Ht 162.6 cm; Wt 86.4 kg
[~2022-12-14] MED LIST changes: +NS 1,000 ML IV ONE; -NS 1,000 ML IV SCH; +SODIUM CHLORIDE 0.9% INJ 10 ML SYR IV SCH
[2022-12-14 07:10] VITALS: BP 124/72
[2022-12-14 08:29] VITALS: BP 107/60
== END ==
LOC: M INFU 07:07
PROVIDERS: ATTEND Internal Medicine Gastroenterology
DX: E86.0 Dehydration (principal); Z88.6 Allergy status to analgesic agent; Z88.5 Allergy status to narcotic agent; Z88.3 Allergy status to other anti-infective agents; Z88.8 Allergy status to other drugs, medicaments and biological substances

== ENCOUNTER 2022-12-19 07:09 | Outpatient (CLI) | payer MEDICARE, OTHER ==
[~2022-12-19 07:09] MED LIST changes: -SODIUM CHLORIDE 0.9% INJ 10 ML SYR IV SCH
[2022-12-19 07:10] VITALS: BP 109/53
[2022-12-19] MEDS ORDERED: SODIUM CHLORIDE 0.9% INJ 10 ML SYR IV SCH (09:00)
== END 2022-12-19 08:30 ==
LOC: M INFU 07:09
PROVIDERS: ATTEND Internal Medicine Gastroenterology
DX: E86.0 Dehydration (principal); Z88.6 Allergy status to analgesic agent; Z88.5 Allergy status to narcotic agent; Z88.3 Allergy status to other anti-infective agents; Z88.8 Allergy status to other drugs, medicaments and biological substances

== ENCOUNTER 2022-12-28 08:00 | Outpatient (CLI) | payer MEDICARE, OTHER ==
[~2022-12-28] VITALS: Ht 162.6 cm; Wt 86.0 kg
[2022-12-28 07:57] VITALS: BP 128/70
[2022-12-28] MEDS ORDERED: SODIUM CHLORIDE 0.9% INJ 10 ML SYR IV SCH ×2 (09:00)
[2022-12-28 09:18] VITALS: BP 120/86
== END 2022-12-28 09:20 | disposition home or self-care (01) ==
LOC: M INFU 08:00
PROVIDERS: ATTEND Internal Medicine Gastroenterology
DX: E86.0 Dehydration (principal); Z88.6 Allergy status to analgesic agent; Z88.5 Allergy status to narcotic agent; Z88.3 Allergy status to other anti-infective agents

== ENCOUNTER → 2022-12-30 | Outpatient (REF) | payer OTHER ==
[~2022-12-30] MED LIST changes: -NS 1,000 ML IV ONE; -SODIUM CHLORIDE 0.9% INJ 10 ML SYR IV PRN
[2022-12-30 21:02] LABS: GC DNA AMPLIFICATION NEGATIVE (NEGATIVE)
== END ==
LOC: M LAB REF 19:10
PROVIDERS: ATTEND Physician Assistant Medical
DX: Z20.2 Contact with and (suspected) exposure to infections with a predominantly sexual mode of transmission (principal)

== ENCOUNTER 2023-01-02 06:50 | Outpatient (CLI) | payer MEDICARE, OTHER ==
[~2023-01-02] VITALS: Ht 162.6 cm; Wt 86.0 kg
[~2023-01-02 06:50] MED LIST changes: +SODIUM CHLORIDE 0.9% INJ 10 ML SYR IV PRN
[2023-01-02 06:59] VITALS: BP 124/63
[2023-01-02] MEDS ORDERED: NS 1,000 ML IV ONE (07:00)
[2023-01-02] MEDS ORDERED: SODIUM CHLORIDE 0.9% INJ 10 ML SYR IV SCH (09:00)
== END 2023-01-02 08:15 | disposition home or self-care (01) ==
LOC: M INFU 06:50
PROVIDERS: ATTEND Internal Medicine Gastroenterology
DX: E86.0 Dehydration (principal); Z88.6 Allergy status to analgesic agent; Z88.5 Allergy status to narcotic agent; Z88.3 Allergy status to other anti-infective agents; Z88.8 Allergy status to other drugs, medicaments and biological substances

== ENCOUNTER → 2023-01-04 | Outpatient (CLI) | payer MEDICARE, OTHER ==
[~2023-01-04] MED LIST changes: +NS 1,000 ML IV ONE; +SODIUM CHLORIDE 0.9% INJ 10 ML SYR IV SCH
== END ==
LOC: M INFU 07:55
PROVIDERS: ATTEND Internal Medicine Gastroenterology
DX: E86.0 Dehydration (principal); Z88.4 Allergy status to anesthetic agent; Z88.5 Allergy status to narcotic agent; Z91.040 Latex allergy status

== ENCOUNTER 2023-01-23 07:40 | Outpatient (CLI) | payer MEDICARE, OTHER ==
[~2023-01-23] VITALS: Ht 162.6 cm; Wt 86.1 kg
[~2023-01-23 07:40] MED LIST changes: -SODIUM CHLORIDE 0.9% INJ 10 ML SYR IV SCH
[2023-01-23 08:57] VITALS: BP 136/84; O2SAT 98
[2023-01-23] MEDS ORDERED: SODIUM CHLORIDE 0.9% INJ 10 ML SYR IV SCH (09:00)
== END 2023-01-23 09:00 | disposition home or self-care (01) ==
LOC: M INFU 07:40
PROVIDERS: ATTEND Internal Medicine Gastroenterology
DX: E86.0 Dehydration (principal); Z88.6 Allergy status to analgesic agent; Z88.5 Allergy status to narcotic agent; Z88.3 Allergy status to other anti-infective agents; Z88.8 Allergy status to other drugs, medicaments and biological substances

== ENCOUNTER → 2023-01-30 | Outpatient (CLI) | payer MEDICARE, OTHER ==
[~2023-01-30] VITALS: Ht 162.6 cm; Wt 86.0 kg
[~2023-01-30] MED LIST changes: +SODIUM CHLORIDE 0.9% INJ 10 ML SYR IV SCH
[2023-01-30 07:19] VITALS: BP 125/69; O2SAT 99
[2023-01-30 08:29] VITALS: BP 118/68; O2SAT 98
== END ==
LOC: M INFU 07:01
PROVIDERS: ATTEND Internal Medicine Gastroenterology
DX: E86.0 Dehydration (principal); Z88.6 Allergy status to analgesic agent; Z88.5 Allergy status to narcotic agent; Z88.3 Allergy status to other anti-infective agents; Z88.8 Allergy status to other drugs, medicaments and biological substances

== ENCOUNTER → 2023-02-01 | Outpatient (CLI) | payer MEDICARE, OTHER | LOC: M INFU 07:40 | PROVIDERS: ATTEND Internal Medicine Gastroenterology | DX: E86.0 Dehydration (principal); Z53.9 Procedure and treatment not carried out, unspecified reason; Z88.6 Allergy status to analgesic agent; Z88.5 Allergy status to narcotic agent; Z88.3 Allergy status to other anti-infective agents ==

== ENCOUNTER 2023-02-06 07:00 | Outpatient (CLI) | payer MEDICARE, OTHER ==
[~2023-02-06] VITALS: Ht 162.6 cm; Wt 86.0 kg
[2023-02-06 06:58] VITALS: BP 134/76; O2SAT 97
[~2023-02-06 07:00] MED LIST changes: -SODIUM CHLORIDE 0.9% INJ 10 ML SYR IV SCH
[2023-02-06 08:18] VITALS: BP 134/76; O2SAT 97
[2023-02-06] MEDS ORDERED: SODIUM CHLORIDE 0.9% INJ 10 ML SYR IV SCH (09:00)
== END 2023-02-06 08:20 ==
LOC: M INFU 07:00
PROVIDERS: ATTEND Internal Medicine Gastroenterology
DX: E86.0 Dehydration (principal); Z88.6 Allergy status to analgesic agent; Z88.5 Allergy status to narcotic agent; Z88.3 Allergy status to other anti-infective agents

== ENCOUNTER → 2023-02-13 | Outpatient (CLI) | payer MEDICARE, OTHER ==
[~2023-02-13] VITALS: Ht 165.1 cm; Wt 77.0 kg
[~2023-02-13] MED LIST changes: +SODIUM CHLORIDE 0.9% INJ 10 ML SYR IV SCH
[2023-02-13 07:26] VITALS: BP 134/73; O2SAT 97
== END ==
LOC: M INFU 07:21
PROVIDERS: ATTEND Internal Medicine Gastroenterology
DX: E86.0 Dehydration (principal); Z88.6 Allergy status to analgesic agent; Z88.5 Allergy status to narcotic agent; Z88.3 Allergy status to other anti-infective agents; Z88.8 Allergy status to other drugs, medicaments and biological substances

== ENCOUNTER 2023-02-22 07:00 | Outpatient (CLI) | payer MEDICARE, OTHER ==
[~2023-02-22] VITALS: Ht 165.1 cm; Wt 77.0 kg
[~2023-02-22 07:00] MED LIST changes: -SODIUM CHLORIDE 0.9% INJ 10 ML SYR IV SCH
[2023-02-22 08:43] VITALS: BP 110/58; O2SAT 99
[2023-02-22] MEDS ORDERED: SODIUM CHLORIDE 0.9% INJ 10 ML SYR IV SCH (09:00)
== END 2023-02-22 08:40 ==
LOC: M INFU 07:00
PROVIDERS: ATTEND Internal Medicine Gastroenterology
DX: E86.0 Dehydration (principal); Z88.6 Allergy status to analgesic agent; Z88.5 Allergy status to narcotic agent; Z88.3 Allergy status to other anti-infective agents; Z88.8 Allergy status to other drugs, medicaments and biological substances

== ENCOUNTER 2023-02-27 07:00 | Outpatient (CLI) | payer MEDICARE, OTHER ==
[~2023-02-27] VITALS: Ht 162.6 cm; Wt 77.3 kg
[~2023-02-27 07:00] MED LIST changes: -NS 1,000 ML IV ONE; -SODIUM CHLORIDE 0.9% INJ 10 ML SYR IV PRN
[2023-02-27] MEDS ORDERED: SODIUM CHLORIDE 0.9% INJ 10 ML SYR IV PRN (07:25)
[2023-02-27] MEDS ORDERED: NS 1,000 ML IV ONE (07:25)
[2023-02-27 08:55] VITALS: BP 137/68; O2SAT 100
[2023-02-27] MEDS ORDERED: SODIUM CHLORIDE 0.9% INJ 10 ML SYR IV SCH (09:00)
== END 2023-02-27 08:50 ==
LOC: M INFU 07:00
PROVIDERS: ATTEND Internal Medicine Gastroenterology
DX: E86.0 Dehydration (principal); Z88.6 Allergy status to analgesic agent; Z88.5 Allergy status to narcotic agent; Z88.3 Allergy status to other anti-infective agents; Z88.8 Allergy status to other drugs, medicaments and biological substances

== ENCOUNTER 2023-03-06 07:26 | Outpatient (CLI) | payer MEDICARE, OTHER ==
[~2023-03-06] VITALS: Ht 165.1 cm; Wt 77.0 kg
[~2023-03-06 07:26] MED LIST changes: +NS 1,000 ML IV ONE; +SODIUM CHLORIDE 0.9% INJ 10 ML SYR IV PRN
[2023-03-06 07:30] VITALS: BP 113/76; O2SAT 99
[2023-03-06 09:00] VITALS: BP 118/68; O2SAT 98
[2023-03-06] MEDS ORDERED: SODIUM CHLORIDE 0.9% INJ 10 ML SYR IV SCH (09:00)
== END 2023-03-06 09:00 ==
LOC: M INFU 07:26
PROVIDERS: ATTEND Internal Medicine Gastroenterology
DX: E86.0 Dehydration (principal); Z91.041 Radiographic dye allergy status; Z91.89 Other specified personal risk factors, not elsewhere classified; Z88.6 Allergy status to analgesic agent; Z91.040 Latex allergy status; Z88.5 Allergy status to narcotic agent; Z88.3 Allergy status to other anti-infective agents; Z88.8 Allergy status to other drugs, medicaments and biological substances

== ENCOUNTER 2023-03-08 07:20 | Outpatient (CLI) | payer MEDICARE, OTHER ==
[2023-03-08 07:19] VITALS: BP 125/63; O2SAT 98
[~2023-03-08 07:20] MED LIST changes: -SODIUM CHLORIDE 0.9% INJ 10 ML SYR IV PRN
[2023-03-08] MEDS ORDERED: SODIUM CHLORIDE 0.9% INJ 10 ML SYR IV PRN (07:35)
[2023-03-08 08:56] VITALS: BP 111/53; O2SAT 97
[2023-03-08] MEDS ORDERED: SODIUM CHLORIDE 0.9% INJ 10 ML SYR IV SCH (09:00)
== END 2023-03-08 09:00 | disposition home or self-care (01) ==
LOC: M INFU 07:20
PROVIDERS: ATTEND Internal Medicine Gastroenterology
DX: E86.0 Dehydration (principal); Z88.6 Allergy status to analgesic agent; Z88.5 Allergy status to narcotic agent; Z88.3 Allergy status to other anti-infective agents

== ENCOUNTER 2023-03-15 06:55 | Outpatient (CLI) | payer MEDICARE, OTHER ==
[~2023-03-15] VITALS: Ht 165.1 cm; Wt 77.0 kg
[~2023-03-15 06:55] MED LIST changes: -NS 1,000 ML IV ONE
[2023-03-15] MEDS ORDERED: SODIUM CHLORIDE 0.9% INJ 10 ML SYR IV PRN (07:00)
[2023-03-15] MEDS ORDERED: NS 1,000 ML IV SCH (07:00)
[2023-03-15 07:15] VITALS: BP 114/71; O2SAT 98
[2023-03-15 08:46] VITALS: BP 130/68; O2SAT 96
[2023-03-15] MEDS ORDERED: SODIUM CHLORIDE 0.9% INJ 10 ML SYR IV SCH ×2 (09:00)
== END 2023-03-15 08:45 | disposition home or self-care (01) ==
LOC: M INFU 06:55
PROVIDERS: ATTEND Internal Medicine Gastroenterology
DX: E86.0 Dehydration (principal); Z88.6 Allergy status to analgesic agent; Z88.5 Allergy status to narcotic agent; Z88.3 Allergy status to other anti-infective agents; Z88.8 Allergy status to other drugs, medicaments and biological substances

== ENCOUNTER 2023-03-19 18:58 | Emergency (ER) | payer MEDICARE, OTHER ==
[~2023-03-19] VITALS: Ht 162.6 cm; Wt 79.0 kg
[2023-03-19 18:59] VITALS: BP 119/78; TEMP 97.1; O2SAT 98
== END 2023-03-19 21:07 | disposition left against medical advice (07) ==
LOC: M ED 18:58
DX: Z53.21 Procedure and treatment not carried out due to patient leaving prior to being seen by health care provider (principal)

== ENCOUNTER 2023-03-20 07:20 | Outpatient (CLI) | payer MEDICARE, OTHER ==
[~2023-03-20] VITALS: Ht 162.6 cm; Wt 77.2 kg
[~2023-03-20 07:20] MED LIST changes: -GABA-283 PO; +GABA-284 PO; +NS 1,000 ML IV SCH; +SODIUM CHLORIDE 0.9% INJ 10 ML SYR IV PRN
[2023-03-20 07:29] VITALS: BP 121/56; O2SAT 98
[2023-03-20 08:40] VITALS: BP 138/78; O2SAT 99
[2023-03-20] MEDS ORDERED: SODIUM CHLORIDE 0.9% INJ 10 ML SYR IV SCH (09:00)
== END 2023-03-20 08:40 | disposition home or self-care (01) ==
LOC: M INFU 07:20
PROVIDERS: ATTEND Internal Medicine Gastroenterology
DX: E86.0 Dehydration (principal); Z88.6 Allergy status to analgesic agent; Z88.5 Allergy status to narcotic agent; Z88.3 Allergy status to other anti-infective agents; Z88.8 Allergy status to other drugs, medicaments and biological substances

== ENCOUNTER 2023-03-22 07:10 | Outpatient (CLI) | payer MEDICARE, OTHER ==
[~2023-03-22] VITALS: Ht 162.6 cm; Wt 81.0 kg
[2023-03-22] MEDS ORDERED: NS 1,000 ML IV ONE (07:30)
[2023-03-22] MEDS ORDERED: SODIUM CHLORIDE 0.9% INJ 10 ML SYR IV PRN (07:30)
[2023-03-22 07:34] VITALS: BP 122/72; O2SAT 98
[2023-03-22 08:51] VITALS: BP 115/65; O2SAT 100
[2023-03-22] MEDS ORDERED: SODIUM CHLORIDE 0.9% INJ 10 ML SYR IV SCH (09:00)
== END 2023-03-22 08:50 | disposition home or self-care (01) ==
LOC: M INFU 07:10
PROVIDERS: ATTEND Internal Medicine Gastroenterology
DX: E86.0 Dehydration (principal); Z88.6 Allergy status to analgesic agent; Z88.5 Allergy status to narcotic agent; Z88.3 Allergy status to other anti-infective agents; Z88.8 Allergy status to other drugs, medicaments and biological substances

== ENCOUNTER → 2023-03-22 | Outpatient (CLI) | payer MEDICARE, OTHER ==
[~2023-03-22] MED LIST changes: -NS 1,000 ML IV SCH; -SODIUM CHLORIDE 0.9% INJ 10 ML SYR IV PRN
[2023-03-22 16:51] LABS: HEMATOCRIT 39.5 % (36.0-47.0); HEMOGLOBIN 12.5 g/dl (12.0-15.5); MEAN CORPUSCULAR HEMOGLOBIN 30.9 pg (27.0-33.0); MEAN CORPUSCULAR HGB CONC 31.6 g/dl (32.0-36.5); MEAN CORPUSCULAR VOLUME 97.5 fl (80.0-96.0); PLATELET COUNT, AUTOMATED 336 10^3/uL (150-450); RED BLOOD COUNT 4.05 10^6/uL (4.00-5.40); WHITE BLOOD COUNT 11.3 10^3/uL (4.0-10.0)
[2023-03-22 17:21] LABS: LIPASE 35 U/L (12-53)
[2023-03-22 17:23] LABS: ALKALINE PHOSPHATASE 102 U/L (46-116); ALT/SGPT 16 U/L (7.0-40); AST/SGOT < 8 U/L (<34); BILIRUBIN,TOTAL 0.2 MG/DL (0.3-1.2); BLOOD UREA NITROGEN 9 MG/DL (9-23); CALCIUM LEVEL 8.8 MG/DL (8.5-10.1); CARBON DIOXIDE LEVEL 24 MMOL/L (20-31); CHLORIDE LEVEL 106 MMOL/L (98-107); CREATININE FOR GFR 0.57 MG/DL (0.55-1.30); GLOMERULAR FILTRATION RATE > 60.0 (>58); GLUCOSE, FASTING 113 MG/DL (60-100); SODIUM LEVEL 138 MMOL/L (136-145); TOTAL PROTEIN 7.2 G/DL (5.7-8.2)
[2023-03-22 19:33] LABS: LYMPHOCYTES 67 % (16-44); MONOCYTES 17 % (0-5); NEUTROPHILS 17 % (28-66); PLATELET ESTIMATE NORMAL (NORMAL)
== END ==
LOC: M WUC 11:15
PROVIDERS: ATTEND Student in an Organized Health Care Education/Training Program
DX: R10.84 Generalized abdominal pain (principal)

== ENCOUNTER 2023-03-27 09:30 | Outpatient (CLI) | payer MEDICARE, OTHER ==
[~2023-03-27] VITALS: Ht 162.6 cm; Wt 79.0 kg
[2023-03-27 09:30] VITALS: BP 129/59; O2SAT 97
[~2023-03-27 09:30] MED LIST changes: +NS 1,000 ML IV ONE; +SODIUM CHLORIDE 0.9% INJ 10 ML SYR IV PRN
[2023-03-28] MEDS ORDERED: SODIUM CHLORIDE 0.9% INJ 10 ML SYR IV SCH (09:00)
== END 2023-03-27 11:00 | disposition home or self-care (01) ==
LOC: M INFU 09:30
PROVIDERS: ATTEND Internal Medicine Gastroenterology
DX: E86.0 Dehydration (principal); Z88.8 Allergy status to other drugs, medicaments and biological substances; Z88.6 Allergy status to analgesic agent; Z88.5 Allergy status to narcotic agent; Z88.3 Allergy status to other anti-infective agents

== ENCOUNTER → 2023-04-05 | Outpatient (CLI) | payer MEDICARE, OTHER ==
[~2023-04-05] VITALS: Ht 162.6 cm; Wt 77.3 kg
[~2023-04-05] MED LIST changes: +SODIUM CHLORIDE 0.9% INJ 10 ML SYR IV SCH
[2023-04-05 07:00] VITALS: BP 116/60; O2SAT 97
[2023-04-05 07:43] LABS: HEMATOCRIT 37.8 % (36.0-47.0); HEMOGLOBIN 12.3 g/dl (12.0-15.5); MEAN CORPUSCULAR HEMOGLOBIN 30.8 pg (27.0-33.0); MEAN CORPUSCULAR HGB CONC 32.5 g/dl (32.0-36.5); MEAN CORPUSCULAR VOLUME 94.5 fl (80.0-96.0); PLATELET COUNT, AUTOMATED 270 10^3/uL (150-450)
[2023-04-05 08:25] LABS: ERYTHROCYTE SEDIMENTATION RATE 19 mm/hr (0-20)
[2023-04-05 08:40] VITALS: BP 127/83; O2SAT 98
[2023-04-05 09:32] LABS: ALBUMIN 3.7 G/DL (3.2-5.2); ALKALINE PHOSPHATASE 96 U/L (46-116); ALT/SGPT 15 U/L (7.0-40); AST/SGOT 8 U/L (<34); BILIRUBIN,TOTAL 0.3 MG/DL (0.3-1.2); BLOOD UREA NITROGEN 12 MG/DL (9-23); C REACTIVE PROTEIN QUANTITATIV < 0.40 MG/DL (<1.0); CALCIUM LEVEL 8.6 MG/DL (8.5-10.1); CARBON DIOXIDE LEVEL 21 MMOL/L (20-31); CHLORIDE LEVEL 108 MMOL/L (98-107); CHOLESTEROL LEVEL 267 MG/DL (<200); CREATININE FOR GFR 0.58 MG/DL (0.55-1.30); GLOMERULAR FILTRATION RATE > 60.0 (>58); GLUCOSE, FASTING 118 MG/DL (60-100); HDL CHOLESTEROL 44.5 MG/DL (>40); LDL CHOLESTEROL 173.3 MG/DL (<100); LIPASE 60 U/L (12-53); MAGNESIUM LEVEL 1.9 MG/DL (1.8-2.4); NON-HDL-C 222.5 MG/DL; POTASSIUM SERUM 4.3 MMOL/L (3.5-5.1); SODIUM LEVEL 138 MMOL/L (136-145); TOTAL 25(OH) VITAMIN D 28.1 NG/ML (20.0-100.0); TOTAL PROTEIN 6.9 G/DL (5.7-8.2); TRIGLYCERIDES LEVEL 246 MG/DL (<150); VITAMIN B12 LEVEL 373 PG/ML (211-911)
== END ==
LOC: M INFU 07:16
PROVIDERS: ATTEND Internal Medicine Gastroenterology
DX: K58.0 Irritable bowel syndrome with diarrhea (principal); K91.850 Pouchitis; E86.0 Dehydration; R11.0 Nausea; K86.1 Other chronic pancreatitis; K44.9 Diaphragmatic hernia without obstruction or gangrene; M62.81 Muscle weakness (generalized); E56.9 Vitamin deficiency, unspecified; E55.9 Vitamin D deficiency, unspecified; Z88.6 Allergy status to analgesic agent; Z88.5 Allergy status to narcotic agent; Z88.3 Allergy status to other anti-infective agents; Z88.8 Allergy status to other drugs, medicaments and biological substances; Z91.041 Radiographic dye allergy status

== ENCOUNTER 2023-04-10 06:55 | Outpatient (CLI) | payer MEDICARE, OTHER ==
[~2023-04-10] VITALS: Ht 162.6 cm; Wt 79.0 kg
[~2023-04-10 06:55] MED LIST changes: -NS 1,000 ML IV ONE; -SODIUM CHLORIDE 0.9% INJ 10 ML SYR IV PRN; -SODIUM CHLORIDE 0.9% INJ 10 ML SYR IV SCH
[2023-04-10 06:58] VITALS: BP 116/58; O2SAT 98
[2023-04-10] MEDS ORDERED: NS 1,000 ML IV ONE (07:00)
[2023-04-10] MEDS ORDERED: SODIUM CHLORIDE 0.9% INJ 10 ML SYR IV PRN (07:00)
[2023-04-10 08:35] VITALS: BP 112/56; O2SAT 99
[2023-04-10] MEDS ORDERED: SODIUM CHLORIDE 0.9% INJ 10 ML SYR IV SCH ×2 (09:00)
== END 2023-04-10 08:35 ==
LOC: M INFU 06:55
PROVIDERS: ATTEND Internal Medicine Gastroenterology
DX: E86.0 Dehydration (principal); Z88.6 Allergy status to analgesic agent; Z88.5 Allergy status to narcotic agent; Z88.3 Allergy status to other anti-infective agents; Z88.8 Allergy status to other drugs, medicaments and biological substances

== ENCOUNTER 2023-04-17 07:00 | Outpatient (CLI) | payer MEDICARE, OTHER ==
[~2023-04-17] VITALS: Ht 162.6 cm; Wt 86.0 kg
[~2023-04-17 07:00] MED LIST changes: -READI-CAT 2 As Ordered ONE
[2023-04-17] MEDS ORDERED: NS 1,000 ML IV ONE (07:05)
[2023-04-17 07:06] VITALS: BP 121/62; O2SAT 97
[2023-04-17] MEDS ORDERED: SODIUM CHLORIDE 0.9% INJ 10 ML SYR IV PRN (07:10)
[2023-04-17] MEDS ORDERED: SODIUM CHLORIDE 0.9% INJ 10 ML SYR IV SCH (09:00)
== END 2023-04-17 08:55 | disposition home or self-care (01) ==
LOC: M INFU 07:00
PROVIDERS: ATTEND Internal Medicine Gastroenterology
DX: E86.0 Dehydration (principal); Z88.6 Allergy status to analgesic agent; Z88.5 Allergy status to narcotic agent; Z88.3 Allergy status to other anti-infective agents; Z88.8 Allergy status to other drugs, medicaments and biological substances; K51.80 Other ulcerative colitis without complications; R11.0 Nausea; K86.1 Other chronic pancreatitis; R10.12 Left upper quadrant pain; K91.850 Pouchitis; K44.9 Diaphragmatic hernia without obstruction or gangrene; M62.81 Muscle weakness (generalized); E55.9 Vitamin D deficiency, unspecified; Z90.49 Acquired absence of other specified parts of digestive tract

== ENCOUNTER → 2023-04-17 | Outpatient (CLI) | payer MEDICARE, OTHER ==
[~2023-04-17] MED LIST changes: +READI-CAT 2 As Ordered ONE
== END ==
LOC: M RAD 08:53
PROVIDERS: ATTEND Internal Medicine Gastroenterology
DX: K51.80 Other ulcerative colitis without complications (principal); R11.0 Nausea; K86.1 Other chronic pancreatitis; R10.12 Left upper quadrant pain; K91.850 Pouchitis; E86.0 Dehydration; K44.9 Diaphragmatic hernia without obstruction or gangrene; M62.81 Muscle weakness (generalized); E55.9 Vitamin D deficiency, unspecified; Z90.49 Acquired absence of other specified parts of digestive tract; K76.0 Fatty (change of) liver, not elsewhere classified; M51.26 Other intervertebral disc displacement, lumbar region; K42.9 Umbilical hernia without obstruction or gangrene; Z98.82 Breast implant status

== ENCOUNTER 2023-04-24 07:35 | Outpatient (CLI) | payer MEDICARE, OTHER ==
[2023-04-24 07:35] VITALS: BP 112/61; O2SAT 98
[~2023-04-24 07:35] MED LIST changes: +NS 1,000 ML IV ONE; +SODIUM CHLORIDE 0.9% INJ 10 ML SYR IV PRN
[2023-04-24] MEDS ORDERED: SODIUM CHLORIDE 0.9% INJ 10 ML SYR IV SCH (09:00)
[2023-04-24 09:15] VITALS: BP 104/60; O2SAT 97
== END 2023-04-24 09:15 | disposition home or self-care (01) ==
LOC: M INFU 07:35
PROVIDERS: ATTEND Internal Medicine Gastroenterology
DX: E86.0 Dehydration (principal); Z88.6 Allergy status to analgesic agent; Z88.5 Allergy status to narcotic agent; Z88.3 Allergy status to other anti-infective agents; Z88.8 Allergy status to other drugs, medicaments and biological substances

== ENCOUNTER 2023-05-10 07:50 | Outpatient (CLI) | payer MEDICARE, OTHER ==
[~2023-05-10] VITALS: Ht 165.1 cm; Wt 77.3 kg
[2023-05-10 08:17] VITALS: BP 137/72; O2SAT 97
[2023-05-10] MEDS ORDERED: SODIUM CHLORIDE 0.9% INJ 10 ML SYR IV SCH (09:00)
[2023-05-10 09:30] VITALS: BP 114/62; O2SAT 99
== END 2023-05-10 09:30 | disposition home or self-care (01) ==
LOC: M INFU 07:50
PROVIDERS: ATTEND Internal Medicine Gastroenterology
DX: E86.0 Dehydration (principal); Z88.5 Allergy status to narcotic agent; Z88.8 Allergy status to other drugs, medicaments and biological substances; Z91.041 Radiographic dye allergy status; Z91.040 Latex allergy status

== ENCOUNTER 2023-05-24 07:40 | Outpatient (CLI) | payer MEDICARE, OTHER ==
[~2023-05-24] VITALS: Ht 162.6 cm; Wt 86.0 kg
[~2023-05-24 07:40] MED LIST changes: +SODIUM CHLORIDE 0.9% INJ 10 ML SYR IV SCH
[2023-05-24 07:47] VITALS: BP 120/69; O2SAT 97
[2023-05-24 09:08] VITALS: BP 120/57; O2SAT 98
== END 2023-05-24 09:05 ==
LOC: M INFU 07:40
PROVIDERS: ATTEND Internal Medicine Gastroenterology
DX: E86.0 Dehydration (principal)

== ENCOUNTER 2023-05-31 07:30 | Outpatient (CLI) | payer MEDICARE, OTHER ==
[~2023-05-31] VITALS: Ht 162.6 cm; Wt 77.0 kg
[2023-05-31 07:28] VITALS: BP 154/81; O2SAT 97
[~2023-05-31 07:30] MED LIST changes: -SODIUM CHLORIDE 0.9% INJ 10 ML SYR IV SCH
[2023-05-31 08:50] VITALS: BP 157/95; O2SAT 100
[2023-05-31] MEDS ORDERED: SODIUM CHLORIDE 0.9% INJ 10 ML SYR IV SCH ×2 (09:00)
== END 2023-05-31 08:50 | disposition home or self-care (01) ==
LOC: M INFU 07:30
PROVIDERS: ATTEND Internal Medicine Gastroenterology
DX: E86.0 Dehydration (principal); Z88.8 Allergy status to other drugs, medicaments and biological substances; Z88.6 Allergy status to analgesic agent; Z88.5 Allergy status to narcotic agent; Z88.3 Allergy status to other anti-infective agents

== ENCOUNTER 2023-06-07 07:12 | Outpatient (CLI) | payer MEDICARE, OTHER ==
[~2023-06-07] VITALS: Ht 162.6 cm; Wt 77.0 kg
[~2023-06-07 07:12] MED LIST changes: -NS 1,000 ML IV ONE; -SODIUM CHLORIDE 0.9% INJ 10 ML SYR IV PRN
[2023-06-07 07:25] VITALS: BP 118/64; O2SAT 99
[2023-06-07] MEDS ORDERED: SODIUM CHLORIDE 0.9% INJ 10 ML SYR IV PRN (07:30)
[2023-06-07] MEDS ORDERED: NS 1,000 ML IV ONE (07:30)
[2023-06-07 08:50] VITALS: BP 105/61; O2SAT 100
[2023-06-07] MEDS ORDERED: SODIUM CHLORIDE 0.9% INJ 10 ML SYR IV SCH (09:00)
== END 2023-06-07 08:55 | disposition home or self-care (01) ==
LOC: M INFU 07:12
PROVIDERS: ATTEND Internal Medicine Gastroenterology
DX: E86.0 Dehydration (principal); Z88.6 Allergy status to analgesic agent; Z88.3 Allergy status to other anti-infective agents; Z88.5 Allergy status to narcotic agent; Z88.8 Allergy status to other drugs, medicaments and biological substances

== ENCOUNTER 2023-06-12 07:48 | Outpatient (CLI) | payer MEDICARE, OTHER ==
[~2023-06-12] VITALS: Ht 162.6 cm; Wt 77.0 kg
[2023-06-12 07:48] VITALS: BP 98/58; O2SAT 97
[~2023-06-12 07:48] MED LIST changes: +SODIUM CHLORIDE 0.9% INJ 10 ML SYR IV PRN
[2023-06-12] MEDS ORDERED: NS 1,000 ML IV ONE (08:00)
[2023-06-12] MEDS ORDERED: SODIUM CHLORIDE 0.9% INJ 10 ML SYR IV SCH (09:00)
[2023-06-12 09:28] VITALS: BP 113/70; O2SAT 99
== END 2023-06-12 09:30 | disposition home or self-care (01) ==
LOC: M INFU 07:48
PROVIDERS: ATTEND Internal Medicine Gastroenterology
DX: E86.0 Dehydration (principal); Z88.5 Allergy status to narcotic agent; Z88.8 Allergy status to other drugs, medicaments and biological substances; Z91.041 Radiographic dye allergy status; Z91.048 Other nonmedicinal substance allergy status

== ENCOUNTER 2023-06-19 07:41 | Outpatient (CLI) | payer MEDICARE, OTHER ==
[~2023-06-19] VITALS: Ht 162.6 cm; Wt 77.0 kg
[2023-06-19 07:40] VITALS: BP 157/72; O2SAT 99
[~2023-06-19 07:41] MED LIST changes: +NS 1,000 ML IV ONE
[2023-06-19] MEDS ORDERED: SODIUM CHLORIDE 0.9% INJ 10 ML SYR IV SCH (09:00)
[2023-06-19 09:10] VITALS: BP 130/78; O2SAT 98
== END 2023-06-19 09:10 ==
LOC: M INFU 07:41
PROVIDERS: ATTEND Internal Medicine Gastroenterology
DX: E86.0 Dehydration (principal); Z88.8 Allergy status to other drugs, medicaments and biological substances; Z88.6 Allergy status to analgesic agent; Z88.5 Allergy status to narcotic agent; Z88.3 Allergy status to other anti-infective agents

== ENCOUNTER 2023-06-28 07:12 | Outpatient (CLI) | payer MEDICARE, OTHER ==
[~2023-06-28] VITALS: Ht 165.1 cm; Wt 79.5 kg
[~2023-06-28 07:12] MED LIST changes: +SODIUM CHLORIDE 0.9% INJ 10 ML SYR IV SCH
[2023-06-28 07:15] VITALS: BP 143/82; O2SAT 99
== END 2023-06-28 08:35 ==
LOC: M INFU 07:12
PROVIDERS: ATTEND Internal Medicine Gastroenterology
DX: E86.0 Dehydration (principal); Z88.6 Allergy status to analgesic agent; Z88.5 Allergy status to narcotic agent; Z88.3 Allergy status to other anti-infective agents; Z88.8 Allergy status to other drugs, medicaments and biological substances

== ENCOUNTER 2023-07-05 07:10 | Outpatient (CLI) | payer MEDICARE, OTHER ==
[~2023-07-05] VITALS: Ht 165.1 cm; Wt 77.0 kg
[~2023-07-05 07:10] MED LIST changes: -SODIUM CHLORIDE 0.9% INJ 10 ML SYR IV SCH
[2023-07-05 07:13] VITALS: BP 125/77; O2SAT 98
[2023-07-05 08:19] VITALS: BP 120/69; O2SAT 99
[2023-07-05] MEDS ORDERED: SODIUM CHLORIDE 0.9% INJ 10 ML SYR IV SCH (09:00)
== END 2023-07-05 08:18 | disposition home or self-care (01) ==
LOC: M INFU 07:10
PROVIDERS: ATTEND Internal Medicine Gastroenterology
DX: E86.0 Dehydration (principal); Z88.6 Allergy status to analgesic agent; Z88.5 Allergy status to narcotic agent; Z88.3 Allergy status to other anti-infective agents; Z88.8 Allergy status to other drugs, medicaments and biological substances

== ENCOUNTER 2023-07-11 07:00 | Outpatient (CLI) | payer MEDICARE, OTHER ==
[2023-07-11 07:00] VITALS: BP 123/81; O2SAT 96
[2023-07-11 08:25] VITALS: BP 138/76; O2SAT 99
[2023-07-11] MEDS ORDERED: SODIUM CHLORIDE 0.9% INJ 10 ML SYR IV SCH (09:00)
== END 2023-07-11 08:26 ==
LOC: M INFU 07:00
PROVIDERS: ATTEND Internal Medicine Gastroenterology
DX: E86.0 Dehydration (principal); Z88.6 Allergy status to analgesic agent; Z88.5 Allergy status to narcotic agent; Z88.3 Allergy status to other anti-infective agents; Z88.8 Allergy status to other drugs, medicaments and biological substances

== ENCOUNTER 2023-07-17 07:09 | Outpatient (CLI) | payer MEDICARE, OTHER ==
[~2023-07-17] VITALS: Ht 165.1 cm; Wt 77.0 kg
[2023-07-17 07:20] VITALS: BP 120/61; O2SAT 97
[2023-07-17] MEDS ORDERED: SODIUM CHLORIDE 0.9% INJ 10 ML SYR IV SCH (09:00)
== END 2023-07-17 08:35 ==
LOC: M INFU 07:09
PROVIDERS: ATTEND Internal Medicine Gastroenterology
DX: E86.0 Dehydration (principal); Z88.8 Allergy status to other drugs, medicaments and biological substances; Z88.6 Allergy status to analgesic agent; Z88.5 Allergy status to narcotic agent; Z88.3 Allergy status to other anti-infective agents

== ENCOUNTER 2023-07-24 07:50 | Outpatient (CLI) | payer MEDICARE, OTHER ==
[~2023-07-24] VITALS: Ht 162.6 cm; Wt 79.0 kg
[~2023-07-24 07:50] MED LIST changes: -NS 1,000 ML IV ONE; -SODIUM CHLORIDE 0.9% INJ 10 ML SYR IV PRN
[2023-07-24] MEDS ORDERED: SODIUM CHLORIDE 0.9% INJ 10 ML SYR IV PRN (08:00)
[2023-07-24] MEDS ORDERED: NS 1,000 ML IV ONE (08:00)
[2023-07-24 08:05] VITALS: BP 131/62; O2SAT 97
[2023-07-24] MEDS ORDERED: SODIUM CHLORIDE 0.9% INJ 10 ML SYR IV SCH (09:00)
[2023-07-24 09:12] VITALS: BP 132/88; O2SAT 97
== END 2023-07-24 09:14 | disposition home or self-care (01) ==
LOC: M INFU 07:50
PROVIDERS: ATTEND Internal Medicine Gastroenterology
DX: E86.0 Dehydration (principal); Z88.6 Allergy status to analgesic agent; Z88.5 Allergy status to narcotic agent; Z88.3 Allergy status to other anti-infective agents; Z88.8 Allergy status to other drugs, medicaments and biological substances

== ENCOUNTER 2023-07-31 07:00 | Outpatient (CLI) | payer MEDICARE, OTHER ==
[2023-07-31 07:00] VITALS: BP 125/75; O2SAT 97
[~2023-07-31 07:00] MED LIST changes: +NS 1,000 ML IV ONE; +SODIUM CHLORIDE 0.9% INJ 10 ML SYR IV PRN
[2023-07-31 08:24] VITALS: BP 108/71; O2SAT 98
[2023-07-31] MEDS ORDERED: SODIUM CHLORIDE 0.9% INJ 10 ML SYR IV SCH (09:00)
== END 2023-07-31 08:25 | disposition home or self-care (01) ==
LOC: M INFU 07:00
PROVIDERS: ATTEND Internal Medicine Gastroenterology
DX: E86.0 Dehydration (principal); Z88.6 Allergy status to analgesic agent; Z88.5 Allergy status to narcotic agent; Z88.3 Allergy status to other anti-infective agents; Z88.8 Allergy status to other drugs, medicaments and biological substances

== ENCOUNTER 2023-08-02 07:10 | Outpatient (CLI) | payer MEDICARE, OTHER ==
[2023-08-02] MEDS ORDERED: SODIUM CHLORIDE 0.9% INJ 10 ML SYR IV SCH (09:00)
== END 2023-08-02 12:02 | disposition home or self-care (01) ==
LOC: M INFU 07:10
PROVIDERS: ATTEND Internal Medicine Gastroenterology
DX: Z53.9 Procedure and treatment not carried out, unspecified reason (principal); E86.0 Dehydration; Z88.6 Allergy status to analgesic agent; Z88.3 Allergy status to other anti-infective agents; Z88.5 Allergy status to narcotic agent; Z88.8 Allergy status to other drugs, medicaments and biological substances

== ENCOUNTER 2023-08-07 07:00 | Outpatient (CLI) | payer MEDICARE, OTHER ==
[~2023-08-07] VITALS: Ht 165.1 cm; Wt 77.0 kg
[~2023-08-07 07:00] MED LIST changes: -NS 1,000 ML IV ONE; -SODIUM CHLORIDE 0.9% INJ 10 ML SYR IV PRN
[2023-08-07 07:07] VITALS: BP 142/85; O2SAT 98
[2023-08-07] MEDS ORDERED: NS 1,000 ML IV ONE (07:15)
[2023-08-07] MEDS ORDERED: SODIUM CHLORIDE 0.9% INJ 10 ML SYR IV PRN (07:55)
[2023-08-07] MEDS ORDERED: SODIUM CHLORIDE 0.9% INJ 10 ML SYR IV SCH (09:00)
== END 2023-08-07 08:45 | disposition home or self-care (01) ==
LOC: M INFU 07:00
PROVIDERS: ATTEND Internal Medicine Gastroenterology
DX: E86.0 Dehydration (principal); Z88.6 Allergy status to analgesic agent; Z88.5 Allergy status to narcotic agent; Z88.3 Allergy status to other anti-infective agents; Z88.8 Allergy status to other drugs, medicaments and biological substances

== ENCOUNTER 2023-08-16 06:55 | Outpatient (CLI) | payer MEDICARE, OTHER ==
[~2023-08-16] VITALS: Ht 165.1 cm; Wt 77.0 kg
[2023-08-16 06:54] VITALS: BP 125/69; O2SAT 98
[2023-08-16] MEDS ORDERED: SODIUM CHLORIDE 0.9% INJ 10 ML SYR IV PRN (07:00)
[2023-08-16] MEDS ORDERED: NS 1,000 ML IV ONE (07:00)
[2023-08-16 08:34] VITALS: BP 133/82; O2SAT 96
[2023-08-16] MEDS ORDERED: SODIUM CHLORIDE 0.9% INJ 10 ML SYR IV SCH (09:00)
== END 2023-08-16 08:35 | disposition home or self-care (01) ==
LOC: M INFU 06:55
PROVIDERS: ATTEND Internal Medicine Gastroenterology
DX: E86.0 Dehydration (principal); Z88.5 Allergy status to narcotic agent; Z88.6 Allergy status to analgesic agent; Z88.8 Allergy status to other drugs, medicaments and biological substances; Z91.040 Latex allergy status; Z91.041 Radiographic dye allergy status; Z91.048 Other nonmedicinal substance allergy status

== ENCOUNTER 2023-08-21 07:01 | Outpatient (CLI) | payer MEDICARE, OTHER ==
[~2023-08-21] VITALS: Ht 162.6 cm; Wt 76.3 kg
[2023-08-21 07:00] VITALS: BP 143/75; O2SAT 96
[2023-08-21] MEDS ORDERED: NS 1,000 ML IV ONE (07:10)
[2023-08-21] MEDS ORDERED: SODIUM CHLORIDE 0.9% INJ 10 ML SYR IV PRN (07:10)
[2023-08-21 08:35] VITALS: BP 143/78; O2SAT 98
[2023-08-21] MEDS ORDERED: SODIUM CHLORIDE 0.9% INJ 10 ML SYR IV SCH (09:00)
== END 2023-08-21 08:35 | disposition home or self-care (01) ==
LOC: M INFU 07:01
PROVIDERS: ATTEND Internal Medicine Gastroenterology
DX: E86.0 Dehydration (principal); Z91.041 Radiographic dye allergy status; Z91.048 Other nonmedicinal substance allergy status; Z88.5 Allergy status to narcotic agent; Z88.6 Allergy status to analgesic agent; Z88.8 Allergy status to other drugs, medicaments and biological substances

== ENCOUNTER 2023-08-30 07:00 | Outpatient (CLI) | payer MEDICARE, OTHER ==
[~2023-08-30] VITALS: Ht 165.1 cm; Wt 77.0 kg
[2023-08-30 07:08] VITALS: BP 154/72; O2SAT 96
[2023-08-30] MEDS ORDERED: SODIUM CHLORIDE 0.9% INJ 10 ML SYR IV PRN (07:20)
[2023-08-30] MEDS ORDERED: NS 1,000 ML IV ONE (07:20)
[2023-08-30 08:22] VITALS: BP 128/71; O2SAT 98
[2023-08-30] MEDS ORDERED: SODIUM CHLORIDE 0.9% INJ 10 ML SYR IV SCH (09:00)
== END 2023-08-30 08:22 | disposition home or self-care (01) ==
LOC: M INFU 07:00
PROVIDERS: ATTEND Internal Medicine Gastroenterology
DX: K51.80 Other ulcerative colitis without complications (principal); K62.89 Other specified diseases of anus and rectum; R10.84 Generalized abdominal pain; Z88.6 Allergy status to analgesic agent; Z88.8 Allergy status to other drugs, medicaments and biological substances; Z88.5 Allergy status to narcotic agent; Z88.3 Allergy status to other anti-infective agents

== ENCOUNTER 2023-09-04 06:40 | Outpatient (CLI) | payer MEDICARE, OTHER ==
[~2023-09-04] VITALS: Ht 162.6 cm; Wt 74.0 kg
[2023-09-04] MEDS ORDERED: NS 1,000 ML IV ONE (07:00)
[2023-09-04] MEDS ORDERED: SODIUM CHLORIDE 0.9% INJ 10 ML SYR IV PRN (07:00)
[2023-09-04 07:14] VITALS: BP 130/84; O2SAT 98
[2023-09-04 08:30] VITALS: BP 138/80; O2SAT 99
[2023-09-04] MEDS ORDERED: SODIUM CHLORIDE 0.9% INJ 10 ML SYR IV SCH (09:00)
== END 2023-09-04 08:30 ==
LOC: M INFU 06:40
PROVIDERS: ATTEND Internal Medicine Gastroenterology
DX: E86.0 Dehydration (principal); Z88.6 Allergy status to analgesic agent; Z88.5 Allergy status to narcotic agent; Z88.3 Allergy status to other anti-infective agents; Z88.8 Allergy status to other drugs, medicaments and biological substances; Z91.041 Radiographic dye allergy status

== ENCOUNTER 2023-09-13 07:05 | Outpatient (CLI) | payer MEDICARE, OTHER ==
[~2023-09-13 07:05] MED LIST changes: +NS 1,000 ML IV SCH; +SODIUM CHLORIDE 0.9% INJ 10 ML SYR IV PRN; +SODIUM CHLORIDE 0.9% INJ 10 ML SYR IV SCH
[2023-09-13 07:31] VITALS: BP 128/81; O2SAT 98
[2023-09-13 08:30] VITALS: BP 135/72; O2SAT 98
== END 2023-09-13 08:30 | disposition home or self-care (01) ==
LOC: M INFU 07:05
PROVIDERS: ATTEND Internal Medicine Gastroenterology
DX: E86.0 Dehydration (principal); Z91.041 Radiographic dye allergy status; Z88.6 Allergy status to analgesic agent; Z88.5 Allergy status to narcotic agent; Z88.3 Allergy status to other anti-infective agents; Z88.8 Allergy status to other drugs, medicaments and biological substances

== ENCOUNTER 2023-09-18 07:05 | Outpatient (CLI) | payer MEDICARE, OTHER ==
[~2023-09-18] VITALS: Ht 165.1 cm; Wt 78.0 kg
[2023-09-18 07:05] VITALS: BP 106/55; O2SAT 98
[~2023-09-18 07:05] MED LIST changes: +NS 1,000 ML IV ONE; -NS 1,000 ML IV SCH; -SODIUM CHLORIDE 0.9% INJ 10 ML SYR IV SCH
[2023-09-18 08:34] VITALS: BP 131/75; O2SAT 97
[2023-09-18] MEDS ORDERED: SODIUM CHLORIDE 0.9% INJ 10 ML SYR IV SCH (09:00)
== END 2023-09-18 08:35 ==
LOC: M INFU 07:05
PROVIDERS: ATTEND Internal Medicine Gastroenterology
DX: E86.0 Dehydration (principal); Z88.6 Allergy status to analgesic agent; Z88.5 Allergy status to narcotic agent; Z88.3 Allergy status to other anti-infective agents; Z88.8 Allergy status to other drugs, medicaments and biological substances; Z91.041 Radiographic dye allergy status

== ENCOUNTER 2023-09-25 07:00 | Outpatient (CLI) | payer MEDICARE, OTHER ==
[~2023-09-25 07:00] MED LIST changes: -NS 1,000 ML IV ONE
[2023-09-25] MEDS: NS 1,000 ML IV ONE (07:14)
[2023-09-25] MEDS: SODIUM CHLORIDE 0.9% INJ 10 ML SYR IV SCH (07:15)
[2023-09-25 07:19] VITALS: BP 124/62; O2SAT 99
[2023-09-25 08:34] VITALS: BP 142/64; O2SAT 97
== END 2023-09-25 08:35 ==
LOC: M INFU 07:00
PROVIDERS: ATTEND Internal Medicine Gastroenterology
DX: E86.0 Dehydration (principal); Z88.6 Allergy status to analgesic agent; Z88.5 Allergy status to narcotic agent; Z88.3 Allergy status to other anti-infective agents; Z88.8 Allergy status to other drugs, medicaments and biological substances; Z91.041 Radiographic dye allergy status

== ENCOUNTER 2023-10-04 06:55 | Outpatient (CLI) | payer MEDICARE, OTHER ==
[~2023-10-04] VITALS: Ht 162.6 cm; Wt 76.0 kg
[~2023-10-04 06:55] MED LIST changes: -SODIUM CHLORIDE 0.9% INJ 10 ML SYR IV PRN
[2023-10-04 06:56] VITALS: BP 140/83; O2SAT 99
[2023-10-04] MEDS ORDERED: SODIUM CHLORIDE 0.9% INJ 10 ML SYR IV PRN (07:05)
[2023-10-04] MEDS: SODIUM CHLORIDE 0.9% INJ 10 ML SYR IV SCH (07:07)
[2023-10-04] MEDS: NS 1,000 ML IV ONE (07:07)
[2023-10-04 08:15] VITALS: BP 119/72; O2SAT 98
== END 2023-10-04 08:15 ==
LOC: M INFU 06:55
PROVIDERS: ATTEND Internal Medicine Gastroenterology
DX: E86.0 Dehydration (principal); Z88.5 Allergy status to narcotic agent; Z88.6 Allergy status to analgesic agent; Z88.8 Allergy status to other drugs, medicaments and biological substances; Z91.040 Latex allergy status; Z91.041 Radiographic dye allergy status

== ENCOUNTER 2023-10-09 07:00 | Outpatient (CLI) | payer MEDICARE, OTHER ==
[~2023-10-09] VITALS: Ht 162.6 cm; Wt 76.0 kg
[2023-10-09 06:56] VITALS: BP 142/78; O2SAT 99
[2023-10-09] MEDS: NS 1,000 ML IV ONE (07:04)
[2023-10-09] MEDS: SODIUM CHLORIDE 0.9% INJ 10 ML SYR IV PRN (07:05)
[2023-10-09 08:28] VITALS: BP 137/86; O2SAT 96
[2023-10-09] MEDS ORDERED: SODIUM CHLORIDE 0.9% INJ 10 ML SYR IV SCH (09:00)
== END 2023-10-09 08:30 ==
LOC: M INFU 07:00
PROVIDERS: ATTEND Internal Medicine Gastroenterology
DX: E86.0 Dehydration (principal); Z88.5 Allergy status to narcotic agent; Z88.6 Allergy status to analgesic agent; Z88.8 Allergy status to other drugs, medicaments and biological substances; Z91.041 Radiographic dye allergy status; Z91.040 Latex allergy status

== ENCOUNTER 2023-10-16 07:45 | Outpatient (CLI) | payer MEDICARE, OTHER ==
[~2023-10-16] VITALS: Ht 162.6 cm; Wt 76.0 kg
[2023-10-16 07:45] VITALS: BP 144/76; O2SAT 97
[~2023-10-16 07:45] MED LIST changes: +SODIUM CHLORIDE 0.9% INJ 10 ML SYR IV PRN
[2023-10-16] MEDS: SODIUM CHLORIDE 0.9% INJ 10 ML SYR IV SCH (08:00)
[2023-10-16] MEDS: NS 1,000 ML IV ONE (08:00)
[2023-10-16 09:00] VITALS: BP 132/73; O2SAT 98
== END 2023-10-16 09:00 | disposition home or self-care (01) ==
LOC: M INFU 07:45
PROVIDERS: ATTEND Internal Medicine Gastroenterology
DX: E86.0 Dehydration (principal); Z88.6 Allergy status to analgesic agent; Z88.5 Allergy status to narcotic agent; Z88.3 Allergy status to other anti-infective agents; Z88.8 Allergy status to other drugs, medicaments and biological substances; Z91.041 Radiographic dye allergy status

== ENCOUNTER 2023-10-23 07:25 | Outpatient (CLI) | payer MEDICARE, OTHER ==
[~2023-10-23] VITALS: Ht 162.6 cm; Wt 79.0 kg
[~2023-10-23 07:25] MED LIST changes: -SODIUM CHLORIDE 0.9% INJ 10 ML SYR IV PRN
[2023-10-23] MEDS: SODIUM CHLORIDE 0.9% INJ 10 ML SYR IV PRN (07:30)
[2023-10-23] MEDS: NS 1,000 ML IV ONE (07:30)
[2023-10-23 07:37] VITALS: BP 122/65; O2SAT 98
[2023-10-23 08:53] VITALS: BP 114/63; O2SAT 99
== END 2023-10-23 08:55 | disposition home or self-care (01) ==
LOC: M INFU 07:25
PROVIDERS: ATTEND Internal Medicine Gastroenterology
DX: E86.0 Dehydration (principal); Z88.6 Allergy status to analgesic agent; Z88.5 Allergy status to narcotic agent; Z88.3 Allergy status to other anti-infective agents; Z88.8 Allergy status to other drugs, medicaments and biological substances; Z91.041 Radiographic dye allergy status

== ENCOUNTER 2023-11-06 07:00 | Outpatient (CLI) | payer MEDICARE, OTHER ==
[~2023-11-06] VITALS: Ht 162.6 cm; Wt 77.3 kg
[2023-11-06] MEDS: SODIUM CHLORIDE 0.9% INJ 10 ML SYR IV PRN (07:09)
[2023-11-06] MEDS: NS 1,000 ML IV ONE (07:10)
[2023-11-06 07:12] VITALS: BP 116/64; O2SAT 96
[2023-11-06 08:23] VITALS: BP 118/78; O2SAT 97
[2023-11-06] MEDS ORDERED: SODIUM CHLORIDE 0.9% INJ 10 ML SYR IV SCH (09:00)
== END 2023-11-06 08:25 | disposition home or self-care (01) ==
LOC: M INFU 07:00
PROVIDERS: ATTEND Internal Medicine Gastroenterology
DX: E86.0 Dehydration (principal); Z88.4 Allergy status to anesthetic agent; Z88.5 Allergy status to narcotic agent; Z88.6 Allergy status to analgesic agent; Z88.8 Allergy status to other drugs, medicaments and biological substances; Z91.041 Radiographic dye allergy status

== ENCOUNTER 2023-11-13 06:49 | Outpatient (CLI) | payer MEDICARE, OTHER ==
[~2023-11-13] VITALS: Ht 162.6 cm; Wt 79.5 kg
[~2023-11-13 06:49] MED LIST changes: -PSEU30TA86 PO; +PSEU30TA87 PO
[2023-11-13] MEDS: SODIUM CHLORIDE 0.9% INJ 10 ML SYR IV PRN (06:57)
[2023-11-13] MEDS: NS 1,000 ML IV ONE (06:57)
[2023-11-13 06:58] VITALS: BP 132/63; O2SAT 98
[2023-11-13 08:20] VITALS: BP 118/78; O2SAT 97
[2023-11-13] MEDS ORDERED: SODIUM CHLORIDE 0.9% INJ 10 ML SYR IV SCH (09:00)
== END 2023-11-13 08:20 ==
LOC: M INFU 06:49
PROVIDERS: ATTEND Internal Medicine Gastroenterology
DX: E86.0 Dehydration (principal); Z88.6 Allergy status to analgesic agent; Z88.5 Allergy status to narcotic agent; Z88.3 Allergy status to other anti-infective agents; Z88.8 Allergy status to other drugs, medicaments and biological substances; Z91.041 Radiographic dye allergy status

== ENCOUNTER 2023-11-20 07:05 | Outpatient (CLI) | payer MEDICARE, OTHER ==
[~2023-11-20] VITALS: Ht 162.6 cm; Wt 80.0 kg
[2023-11-20] MEDS: NS 1,000 ML IV ONE (07:07)
[2023-11-20] MEDS: SODIUM CHLORIDE 0.9% INJ 10 ML SYR IV PRN (07:08)
[2023-11-20 07:20] VITALS: BP 119/65; O2SAT 98
[2023-11-20 08:30] VITALS: BP 122/62; O2SAT 100
[2023-11-20] MEDS ORDERED: SODIUM CHLORIDE 0.9% INJ 10 ML SYR IV SCH (09:00)
== END 2023-11-20 08:50 | disposition home or self-care (01) ==
LOC: M INFU 07:05
PROVIDERS: ATTEND Internal Medicine Gastroenterology
DX: E86.0 Dehydration (principal); Z88.6 Allergy status to analgesic agent; Z88.5 Allergy status to narcotic agent; Z88.3 Allergy status to other anti-infective agents; Z88.8 Allergy status to other drugs, medicaments and biological substances; Z91.041 Radiographic dye allergy status

== ENCOUNTER 2023-11-27 07:30 | Outpatient (CLI) | payer MEDICARE, OTHER ==
[~2023-11-27] VITALS: Ht 162.6 cm; Wt 81.3 kg
[~2023-11-27 07:30] MED LIST changes: +SODIUM CHLORIDE 0.9% INJ 10 ML SYR IV PRN
[2023-11-27] MEDS: NS 1,000 ML IV ONE (07:39)
[2023-11-27] MEDS: SODIUM CHLORIDE 0.9% INJ 10 ML SYR IV SCH (07:40)
[2023-11-27 07:58] VITALS: BP 131/69; O2SAT 99
[2023-11-27 08:50] VITALS: BP 115/60; O2SAT 97
== END 2023-11-27 08:50 | disposition home or self-care (01) ==
LOC: M INFU 07:30
PROVIDERS: ATTEND Internal Medicine Gastroenterology
DX: E86.0 Dehydration (principal); Z88.6 Allergy status to analgesic agent; Z88.5 Allergy status to narcotic agent; Z88.3 Allergy status to other anti-infective agents; Z88.8 Allergy status to other drugs, medicaments and biological substances; Z91.041 Radiographic dye allergy status

== ENCOUNTER 2023-11-29 07:20 | Outpatient (CLI) | payer MEDICARE, OTHER ==
[~2023-11-29 07:20] MED LIST changes: +NS 1,000 ML IV ONE
[2023-11-29] MEDS ORDERED: SODIUM CHLORIDE 0.9% INJ 10 ML SYR IV SCH (09:00)
== END 2023-11-29 11:45 ==
LOC: M INFU 07:20
PROVIDERS: ATTEND Internal Medicine Gastroenterology
DX: Z53.9 Procedure and treatment not carried out, unspecified reason (principal); E86.0 Dehydration; Z88.3 Allergy status to other anti-infective agents; Z88.6 Allergy status to analgesic agent; Z88.5 Allergy status to narcotic agent; Z88.8 Allergy status to other drugs, medicaments and biological substances; Z91.041 Radiographic dye allergy status

== ENCOUNTER 2023-12-04 06:50 | Outpatient (CLI) | payer MEDICARE, OTHER ==
[~2023-12-04] VITALS: Ht 162.6 cm; Wt 81.3 kg
[~2023-12-04 06:50] MED LIST changes: -NS 1,000 ML IV ONE; -SODIUM CHLORIDE 0.9% INJ 10 ML SYR IV PRN
[2023-12-04 06:55] VITALS: BP 119/62; O2SAT 97
[2023-12-04] MEDS: NS 1,000 ML IV ONE (06:57)
[2023-12-04] MEDS: SODIUM CHLORIDE 0.9% INJ 10 ML SYR IV PRN (07:14)
[2023-12-04 08:13] VITALS: BP 122/72; O2SAT 96
[2023-12-04] MEDS ORDERED: SODIUM CHLORIDE 0.9% INJ 10 ML SYR IV SCH (09:00)
== END 2023-12-04 08:15 | disposition home or self-care (01) ==
LOC: M INFU 06:50
PROVIDERS: ATTEND Internal Medicine Gastroenterology
DX: E86.0 Dehydration (principal); Z88.6 Allergy status to analgesic agent; Z88.5 Allergy status to narcotic agent; Z88.3 Allergy status to other anti-infective agents; Z88.8 Allergy status to other drugs, medicaments and biological substances; Z91.041 Radiographic dye allergy status

== ENCOUNTER 2023-12-11 06:50 | Outpatient (CLI) | payer MEDICARE, OTHER ==
[~2023-12-11] VITALS: Ht 162.6 cm; Wt 79.5 kg
[2023-12-11 06:50] VITALS: BP 131/81; O2SAT 98
[2023-12-11] MEDS ORDERED: SODIUM CHLORIDE 0.9% INJ 10 ML SYR IV PRN ×2 (07:00→07:10)
[2023-12-11] MEDS: SODIUM CHLORIDE 0.9% INJ 10 ML SYR IV SCH (07:02)
[2023-12-11] MEDS: NS 1,000 ML IV ONE (07:02)
[2023-12-11 08:20] VITALS: BP 109/58; O2SAT 98
[2023-12-11] MEDS ORDERED: SODIUM CHLORIDE 0.9% INJ 10 ML SYR IV SCH (09:00)
== END 2023-12-11 08:30 ==
LOC: M INFU 06:50
PROVIDERS: ATTEND Internal Medicine Gastroenterology
DX: E86.0 Dehydration (principal)

== ENCOUNTER 2023-12-18 07:00 | Outpatient (CLI) | payer MEDICARE, OTHER ==
[2023-12-18 07:00] VITALS: BP 138/81; O2SAT 98
[~2023-12-18 07:00] MED LIST changes: +SODIUM CHLORIDE 0.9% INJ 10 ML SYR IV PRN
[2023-12-18] MEDS: SODIUM CHLORIDE 0.9% INJ 10 ML SYR IV SCH (07:12)
[2023-12-18] MEDS: NS 1,000 ML IV ONE (07:12)
== END 2023-12-18 08:30 | disposition home or self-care (01) ==
LOC: M INFU 07:00
PROVIDERS: ATTEND Internal Medicine Gastroenterology
DX: E86.0 Dehydration (principal); Z88.6 Allergy status to analgesic agent; Z88.8 Allergy status to other drugs, medicaments and biological substances; Z88.3 Allergy status to other anti-infective agents; Z88.5 Allergy status to narcotic agent; Z91.89 Other specified personal risk factors, not elsewhere classified; Z91.041 Radiographic dye allergy status; Z91.040 Latex allergy status

== ENCOUNTER 2023-12-20 07:05 | Outpatient (CLI) | payer MEDICARE, OTHER ==
[~2023-12-20] VITALS: Ht 162.6 cm; Wt 79.0 kg
[2023-12-20 07:05] VITALS: BP 135/80; O2SAT 95
[~2023-12-20 07:05] MED LIST changes: +SODIUM CHLORIDE 0.9% INJ 10 ML SYR IV SCH
[2023-12-20] MEDS: NS 1,000 ML IV SCH (07:10)
[2023-12-20] MEDS: SODIUM CHLORIDE 0.9% INJ 10 ML SYR IV SCH (07:54)
[2023-12-20 08:25] VITALS: BP 131/71; O2SAT 98
== END 2023-12-20 08:30 | disposition home or self-care (01) ==
LOC: M INFU 07:05
PROVIDERS: ATTEND Internal Medicine Gastroenterology
DX: E86.0 Dehydration (principal); Z88.6 Allergy status to analgesic agent; Z88.5 Allergy status to narcotic agent; Z88.3 Allergy status to other anti-infective agents; Z88.8 Allergy status to other drugs, medicaments and biological substances; Z91.041 Radiographic dye allergy status; Z91.040 Latex allergy status; Z91.89 Other specified personal risk factors, not elsewhere classified

== ENCOUNTER 2023-12-25 06:55 | Outpatient (CLI) | payer MEDICARE, OTHER ==
[~2023-12-25] VITALS: Ht 162.6 cm; Wt 80.8 kg
[~2023-12-25 06:55] MED LIST changes: -SODIUM CHLORIDE 0.9% INJ 10 ML SYR IV SCH
[2023-12-25] MEDS: NS 1,000 ML IV ONE (06:57)
[2023-12-25] MEDS: SODIUM CHLORIDE 0.9% INJ 10 ML SYR IV SCH (06:57)
[2023-12-25 07:04] VITALS: BP 118/84; O2SAT 97
[2023-12-25 08:15] VITALS: BP 99/52
== END 2023-12-25 08:15 | disposition home or self-care (01) ==
LOC: M INFU 06:55
PROVIDERS: ATTEND Internal Medicine Gastroenterology
DX: E86.0 Dehydration (principal); Z91.89 Other specified personal risk factors, not elsewhere classified; Z88.6 Allergy status to analgesic agent; Z88.5 Allergy status to narcotic agent; Z88.3 Allergy status to other anti-infective agents; Z88.8 Allergy status to other drugs, medicaments and biological substances; Z91.041 Radiographic dye allergy status; Z91.040 Latex allergy status

== ENCOUNTER 2023-12-27 07:00 | Outpatient (CLI) | payer MEDICARE, OTHER ==
[2023-12-27] MEDS: NS 1,000 ML IV ONE (07:17)
[2023-12-27] MEDS: SODIUM CHLORIDE 0.9% INJ 10 ML SYR IV SCH (07:18)
[2023-12-27 07:28] VITALS: BP 112/71; O2SAT 97
[2023-12-27 08:30] VITALS: BP 138/88; O2SAT 98
[2023-12-27] MEDS ORDERED: SODIUM CHLORIDE 0.9% INJ 10 ML SYR IV SCH (09:00)
[2023-12-27] MEDS ORDERED: SODIUM CHLORIDE 0.9% INJ 10 ML SYR IV PRN (09:00)
== END 2023-12-27 08:30 | disposition home or self-care (01) ==
LOC: M INFU 07:00
PROVIDERS: ATTEND Internal Medicine Gastroenterology
DX: E86.0 Dehydration (principal); Z88.8 Allergy status to other drugs, medicaments and biological substances; Z88.6 Allergy status to analgesic agent; Z88.5 Allergy status to narcotic agent; Z91.041 Radiographic dye allergy status; Z91.040 Latex allergy status

== ENCOUNTER 2023-12-29 16:46 | Emergency (ER) | payer MEDICARE, OTHER ==
[~2023-12-29] VITALS: Ht 162.6 cm; Wt 83.5 kg
[~2023-12-29 16:46] MED LIST changes: -SODIUM CHLORIDE 0.9% INJ 10 ML SYR IV PRN
[2023-12-29] MEDS ORDERED: OMEP40CA5 (17:04)
[2023-12-29] MEDS ORDERED: CLAR10CA3 PO (17:21)
[2023-12-29 19:24] LABS: BASO # 0.1 10^3/uL (0.0-0.2); BASO % 0.5 % (0.0-1.0); EOS # 0.1 10^3/uL (0.0-0.5); EOS % 0.8 % (0.0-3.0); HEMATOCRIT 38.8 % (36.0-47.0); HEMOGLOBIN 13.3 g/dl (12.0-15.5); LYMPH # 3.8 10^3/uL (1.5-5.0); MEAN CORPUSCULAR HEMOGLOBIN 31.7 pg (27.0-33.0); MEAN CORPUSCULAR HGB CONC 34.3 g/dl (32.0-36.5); MEAN CORPUSCULAR VOLUME 92.4 fl (80.0-96.0); MONO # 0.5 10^3/uL (0.0-0.8); MONO % 4.7 % (2.0-8.0); NEUTROPHILS # 6.4 10^3/uL (1.5-8.5); NEUTROPHILS % 58.5 % (36.0-66.0); PLATELET COUNT, AUTOMATED 363 10^3/uL (150-450)
[2023-12-29 19:45] LABS: ERYTHROCYTE SEDIMENTATION RATE 56 mm/hr (0-20)
[2023-12-29 19:51] LABS: C REACTIVE PROTEIN QUANTITATIV < 0.40 MG/DL (<1.0)
[2023-12-29 19:52] LABS: BLOOD UREA NITROGEN 13 MG/DL (9-23); CALCIUM LEVEL 9.4 MG/DL (8.5-10.1); CARBON DIOXIDE LEVEL 29 MMOL/L (20-31); CHLORIDE LEVEL 102 MMOL/L (98-107); CREATININE FOR GFR 0.67 MG/DL (0.55-1.30); GLOMERULAR FILTRATION RATE > 60.0 (>58); GLUCOSE, FASTING 88 MG/DL (60-100); POTASSIUM SERUM 4.8 MMOL/L (3.5-5.1); SODIUM LEVEL 135 MMOL/L (136-145)
[2023-12-29 21:15] VITALS: BP 112/66; TEMP 98.3; O2SAT 97
== END 2023-12-29 21:31 | disposition home or self-care (01) ==
LOC: M ED 16:46
DX: Z45.2 Encounter for adjustment and management of vascular access device (principal); E78.5 Hyperlipidemia, unspecified; I10 Essential (primary) hypertension; K51.90 Ulcerative colitis, unspecified, without complications; G43.909 Migraine, unspecified, not intractable, without status migrainosus; K21.9 Gastro-esophageal reflux disease without esophagitis; F43.10 Post-traumatic stress disorder, unspecified; Z91.041 Radiographic dye allergy status; Z91.048 Other nonmedicinal substance allergy status; Z88.6 Allergy status to analgesic agent; Z88.5 Allergy status to narcotic agent; Z88.8 Allergy status to other drugs, medicaments and biological substances; Z91.040 Latex allergy status; Z79.2 Long term (current) use of antibiotics; Z79.899 Other long term (current) drug therapy

== ENCOUNTER 2024-01-01 07:30 | Outpatient (CLI) | payer MEDICARE, OTHER ==
[~2024-01-01] VITALS: Ht 162.6 cm; Wt 80.5 kg
[~2024-01-01 07:30] MED LIST changes: +CLAR10CA3 PO; +OMEP40CA5; +SODIUM CHLORIDE 0.9% INJ 10 ML SYR IV PRN; +SODIUM CHLORIDE 0.9% INJ 10 ML SYR IV SCH
[2024-01-01] MEDS: NS 1,000 ML IV ONE (07:45)
[2024-01-01] MEDS: SODIUM CHLORIDE 0.9% INJ 10 ML SYR IV SCH (07:46)
[2024-01-01 08:04] VITALS: BP 108/61; O2SAT 95
== END 2024-01-01 09:10 | disposition home or self-care (01) ==
LOC: M INFU 07:30
PROVIDERS: ATTEND Internal Medicine Gastroenterology
DX: E86.0 Dehydration (principal); Z88.6 Allergy status to analgesic agent; Z88.5 Allergy status to narcotic agent; Z88.3 Allergy status to other anti-infective agents; Z88.8 Allergy status to other drugs, medicaments and biological substances; Z91.041 Radiographic dye allergy status; Z91.040 Latex allergy status

== ENCOUNTER 2024-01-08 07:05 | Outpatient (CLI) | payer MEDICARE, OTHER ==
[~2024-01-08] VITALS: Ht 162.6 cm; Wt 80.5 kg
[2024-01-08 07:05] VITALS: BP 130/64; O2SAT 99
[~2024-01-08 07:05] MED LIST changes: -SODIUM CHLORIDE 0.9% INJ 10 ML SYR IV PRN; -SODIUM CHLORIDE 0.9% INJ 10 ML SYR IV SCH
[2024-01-08] MEDS: NS 1,000 ML IV ONE (07:12)
[2024-01-08] MEDS: SODIUM CHLORIDE 0.9% INJ 10 ML SYR IV SCH (07:12)
[2024-01-08] MEDS ORDERED: ALTEPLASE 2MG/2ML VIAL XX PRN (07:15)
[2024-01-08] MEDS ORDERED: SODIUM CHLORIDE 0.9% INJ 10 ML SYR IV PRN (07:15)
[2024-01-08 08:22] VITALS: BP 122/72; O2SAT 98
== END 2024-01-08 08:25 | disposition home or self-care (01) ==
LOC: M INFU 07:05
PROVIDERS: ATTEND Internal Medicine Gastroenterology
DX: E86.0 Dehydration (principal); Z88.8 Allergy status to other drugs, medicaments and biological substances; Z88.6 Allergy status to analgesic agent; Z88.5 Allergy status to narcotic agent; Z88.3 Allergy status to other anti-infective agents; Z91.89 Other specified personal risk factors, not elsewhere classified; Z91.040 Latex allergy status; Z91.041 Radiographic dye allergy status

== ENCOUNTER 2024-01-15 07:00 | Outpatient (CLI) | payer MEDICARE, OTHER ==
[~2024-01-15] VITALS: Ht 162.6 cm; Wt 83.5 kg
[2024-01-15 07:00] VITALS: BP 137/72; O2SAT 97
[2024-01-15] MEDS ORDERED: SODIUM CHLORIDE 0.9% INJ 10 ML SYR IV PRN (07:40)
[2024-01-15] MEDS: NS 1,000 ML IV ONE (07:47)
[2024-01-15] MEDS: SODIUM CHLORIDE 0.9% INJ 10 ML SYR IV SCH (08:17)
[2024-01-15 08:20] VITALS: BP 103/64; O2SAT 97
[2024-01-15] MEDS ORDERED: ALTEPLASE 2MG/2ML VIAL XX PRN (08:45)
== END 2024-01-15 08:25 | disposition home or self-care (01) ==
LOC: M INFU 07:00
PROVIDERS: ATTEND Internal Medicine Gastroenterology
DX: E86.0 Dehydration (principal); Z88.6 Allergy status to analgesic agent; Z88.3 Allergy status to other anti-infective agents; Z88.5 Allergy status to narcotic agent; Z88.8 Allergy status to other drugs, medicaments and biological substances; Z91.89 Other specified personal risk factors, not elsewhere classified; Z91.040 Latex allergy status

== ENCOUNTER 2024-01-22 06:55 | Outpatient (CLI) | payer MEDICARE, OTHER ==
[2024-01-22] MEDS: NS 1,000 ML IV SCH (07:05)
[2024-01-22] MEDS: SODIUM CHLORIDE 0.9% INJ 10 ML SYR IV PRN (07:06)
[2024-01-22 07:09] VITALS: BP 132/63; O2SAT 98
[2024-01-22] MEDS ORDERED: SODIUM CHLORIDE 0.9% INJ 10 ML SYR IV SCH (09:00)
== END 2024-01-22 08:15 | disposition home or self-care (01) ==
LOC: M INFU 06:55
PROVIDERS: ATTEND Internal Medicine Gastroenterology
DX: E86.0 Dehydration (principal); Z88.6 Allergy status to analgesic agent; Z88.5 Allergy status to narcotic agent; Z88.3 Allergy status to other anti-infective agents; Z88.8 Allergy status to other drugs, medicaments and biological substances; Z91.040 Latex allergy status; Z91.89 Other specified personal risk factors, not elsewhere classified; Z91.041 Radiographic dye allergy status

== ENCOUNTER 2024-01-24 07:00 | Outpatient (CLI) | payer MEDICARE, OTHER ==
[~2024-01-24] VITALS: Ht 162.6 cm; Wt 80.5 kg
[2024-01-24 07:00] VITALS: BP 126/72; O2SAT 98
[~2024-01-24 07:00] MED LIST changes: +SODIUM CHLORIDE 0.9% INJ 10 ML SYR IV PRN
[2024-01-24] MEDS: NS 1,000 ML IV ONE (07:04)
[2024-01-24] MEDS: SODIUM CHLORIDE 0.9% INJ 10 ML SYR IV SCH (07:05)
[2024-01-24 08:43] VITALS: BP 107/58; O2SAT 99
[2024-01-24] MEDS ORDERED: SODIUM CHLORIDE 0.9% INJ 10 ML SYR IV SCH (09:00)
== END 2024-01-24 08:43 ==
LOC: M INFU 07:00
PROVIDERS: ATTEND Internal Medicine Gastroenterology
DX: E86.0 Dehydration (principal); Z88.6 Allergy status to analgesic agent; Z88.5 Allergy status to narcotic agent; Z88.3 Allergy status to other anti-infective agents; Z88.8 Allergy status to other drugs, medicaments and biological substances; Z91.89 Other specified personal risk factors, not elsewhere classified; Z91.041 Radiographic dye allergy status

== ENCOUNTER 2024-01-28 14:25 | Emergency (ER) | payer MEDICARE, OTHER ==
[~2024-01-28] VITALS: Ht 162.6 cm; Wt 86.2 kg
[2024-01-28 20:03] VITALS: BP 142/77; TEMP 97.8; O2SAT 96
== END 2024-01-28 20:04 | disposition home or self-care (01) ==
LOC: M ED 14:25
DX: R10.10 Upper abdominal pain, unspecified (principal); R53.83 Other fatigue; R53.81 Other malaise; E78.5 Hyperlipidemia, unspecified; E86.0 Dehydration; R10.84 Generalized abdominal pain; K44.9 Diaphragmatic hernia without obstruction or gangrene; K21.9 Gastro-esophageal reflux disease without esophagitis; K86.1 Other chronic pancreatitis; E55.9 Vitamin D deficiency, unspecified; E56.9 Vitamin deficiency, unspecified; R13.10 Dysphagia, unspecified; Z87.891 Personal history of nicotine dependence; Z88.5 Allergy status to narcotic agent; Z88.6 Allergy status to analgesic agent; Z91.041 Radiographic dye allergy status; Z91.040 Latex allergy status; Z91.048 Other nonmedicinal substance allergy status; Z79.83 Long term (current) use of bisphosphonates; Z79.899 Other long term (current) drug therapy

== ENCOUNTER → 2024-01-28 | Outpatient (CLI) | payer MEDICARE, OTHER ==
[~2024-01-28] MED LIST changes: -SODIUM CHLORIDE 0.9% INJ 10 ML SYR IV PRN
[2024-01-28 09:19] LABS: HEMATOCRIT 37.1 % (36.0-47.0); HEMOGLOBIN 12.5 g/dl (12.0-15.5); MEAN CORPUSCULAR HEMOGLOBIN 31.8 pg (27.0-33.0); MEAN CORPUSCULAR HGB CONC 33.7 g/dl (32.0-36.5); MEAN CORPUSCULAR VOLUME 94.4 fl (80.0-96.0); PLATELET COUNT, AUTOMATED 331 10^3/uL (150-450); RED BLOOD COUNT 3.93 10^6/uL (4.00-5.40); WHITE BLOOD COUNT 9.9 10^3/uL (4.0-10.0)
[2024-01-28 09:25] LABS: ERYTHROCYTE SEDIMENTATION RATE 20 mm/hr (0-20)
[2024-01-28 09:46] LABS: C REACTIVE PROTEIN QUANTITATIV < 0.40 MG/DL (<1.0); LIPASE 39 U/L (12-53)
[2024-01-28 09:50] LABS: VITAMIN B12 LEVEL 450 PG/ML (211-911)
[2024-01-28 09:56] LABS: ALBUMIN 3.7 G/DL (3.2-5.2); ALKALINE PHOSPHATASE 91 U/L (46-116); ALT/SGPT 24 U/L (7.0-40); AST/SGOT < 8 U/L (<34); BILIRUBIN,TOTAL 0.2 MG/DL (0.3-1.2); BLOOD UREA NITROGEN 11 MG/DL (9-23); CALCIUM LEVEL 8.9 MG/DL (8.5-10.1); CARBON DIOXIDE LEVEL 27 MMOL/L (20-31); CHLORIDE LEVEL 104 MMOL/L (98-107); CHOLESTEROL LEVEL 349 MG/DL (<200); CHOLESTEROL RISK RATIO 8.85 (<5); CREATININE FOR GFR 0.63 MG/DL (0.55-1.30); GLOMERULAR FILTRATION RATE > 60.0 (>58); GLUCOSE, FASTING 128 MG/DL (60-100); HDL CHOLESTEROL 39.4 MG/DL (>40); MAGNESIUM LEVEL 1.8 MG/DL (1.8-2.4); NON-HDL-C 309.6 MG/DL; POTASSIUM SERUM 4.3 MMOL/L (3.5-5.1); SODIUM LEVEL 137 MMOL/L (136-145); TOTAL PROTEIN 6.6 G/DL (5.7-8.2); TRIGLYCERIDES LEVEL 1515 MG/DL (<150)
== END ==
LOC: M LAB 08:39
PROVIDERS: ATTEND Internal Medicine Gastroenterology
DX: E86.0 Dehydration (principal); R10.84 Generalized abdominal pain; K44.9 Diaphragmatic hernia without obstruction or gangrene; K21.9 Gastro-esophageal reflux disease without esophagitis; K86.1 Other chronic pancreatitis; E55.9 Vitamin D deficiency, unspecified; E56.9 Vitamin deficiency, unspecified; R13.10 Dysphagia, unspecified

== ENCOUNTER 2024-01-29 06:45 | Outpatient (CLI) | payer MEDICARE, OTHER ==
[~2024-01-29] VITALS: Ht 162.6 cm; Wt 86.3 kg
[2024-01-29 06:45] VITALS: BP 120/71; O2SAT 97
[2024-01-29] MEDS: NS 1,000 ML IV SCH (06:54)
[2024-01-29] MEDS: SODIUM CHLORIDE 0.9% INJ 10 ML SYR IV SCH (06:55)
[2024-01-29] MEDS ORDERED: SODIUM CHLORIDE 0.9% INJ 10 ML SYR IV SCH (07:00)
[2024-01-29] MEDS ORDERED: SODIUM CHLORIDE 0.9% INJ 10 ML SYR IV PRN (07:00)
[2024-01-29 08:30] VITALS: BP 125/72; O2SAT 98
== END 2024-01-29 08:35 | disposition home or self-care (01) ==
LOC: M INFU 06:45
PROVIDERS: ATTEND Internal Medicine Gastroenterology
DX: E86.0 Dehydration (principal); Z88.6 Allergy status to analgesic agent; Z88.5 Allergy status to narcotic agent; Z88.3 Allergy status to other anti-infective agents; Z88.8 Allergy status to other drugs, medicaments and biological substances; Z91.041 Radiographic dye allergy status; Z91.89 Other specified personal risk factors, not elsewhere classified

== ENCOUNTER 2024-01-31 07:00 | Outpatient (CLI) | payer MEDICARE, OTHER ==
[~2024-01-31] VITALS: Ht 162.6 cm; Wt 80.5 kg
[2024-01-31 07:00] VITALS: BP 110/71; O2SAT 97
[~2024-01-31 07:00] MED LIST changes: +SODIUM CHLORIDE 0.9% INJ 10 ML SYR IV PRN
[2024-01-31] MEDS: NS 1,000 ML IV SCH (07:12)
[2024-01-31] MEDS: SODIUM CHLORIDE 0.9% INJ 10 ML SYR IV SCH (07:12)
[2024-01-31 08:00] VITALS: BP 124/80; O2SAT 98
== END 2024-01-31 08:30 | disposition home or self-care (01) ==
LOC: M INFU 07:00
PROVIDERS: ATTEND Internal Medicine Gastroenterology
DX: E86.0 Dehydration (principal); Z91.041 Radiographic dye allergy status; Z91.89 Other specified personal risk factors, not elsewhere classified; Z88.6 Allergy status to analgesic agent; Z91.040 Latex allergy status; Z88.3 Allergy status to other anti-infective agents; Z88.5 Allergy status to narcotic agent; Z88.8 Allergy status to other drugs, medicaments and biological substances

== ENCOUNTER 2024-02-05 07:00 | Outpatient (CLI) | payer MEDICARE, OTHER ==
[2024-02-05 07:00] VITALS: BP 113/71; O2SAT 98
[2024-02-05] MEDS: NS 1,000 ML IV ONE (08:03)
[2024-02-05] MEDS: SODIUM CHLORIDE 0.9% INJ 10 ML SYR IV SCH (08:04)
[2024-02-05] MEDS ORDERED: SODIUM CHLORIDE 0.9% INJ 10 ML SYR IV SCH (09:00)
[2024-02-05 09:13] VITALS: BP 122/63; O2SAT 98
== END 2024-02-05 09:50 ==
LOC: M INFU 07:00
PROVIDERS: ATTEND Internal Medicine Gastroenterology
DX: E86.0 Dehydration (principal); Z88.6 Allergy status to analgesic agent; Z88.5 Allergy status to narcotic agent; Z88.3 Allergy status to other anti-infective agents; Z88.8 Allergy status to other drugs, medicaments and biological substances; Z91.041 Radiographic dye allergy status; Z91.89 Other specified personal risk factors, not elsewhere classified; Z91.040 Latex allergy status

== ENCOUNTER 2024-02-07 07:00 | Outpatient (CLI) | payer MEDICARE, OTHER ==
[~2024-02-07] VITALS: Ht 165.1 cm; Wt 85.0 kg
[2024-02-07 07:00] VITALS: BP 136/63; O2SAT 96
[2024-02-07] MEDS: NS 1,000 ML IV ONE (07:15)
[2024-02-07] MEDS: SODIUM CHLORIDE 0.9% INJ 10 ML SYR IV SCH (08:00)
[2024-02-07 08:20] VITALS: BP 124/66; O2SAT 96
== END 2024-02-07 08:20 ==
LOC: M INFU 07:00
PROVIDERS: ATTEND Internal Medicine Gastroenterology
DX: E86.0 Dehydration (principal); Z88.6 Allergy status to analgesic agent; Z88.5 Allergy status to narcotic agent; Z88.3 Allergy status to other anti-infective agents; Z88.8 Allergy status to other drugs, medicaments and biological substances; Z91.89 Other specified personal risk factors, not elsewhere classified; Z91.041 Radiographic dye allergy status; Z91.040 Latex allergy status

== ENCOUNTER → 2024-02-08 | Outpatient (CLI) | payer MEDICARE, OTHER ==
[~2024-02-08] MED LIST changes: -SODIUM CHLORIDE 0.9% INJ 10 ML SYR IV PRN
[2024-02-08 09:29] LABS: APPEARANCE, URINE HAZY (CLEAR); BACTERIA, URINE AUTO NEGATIVE (NEGATIVE); BILIRUBIN, URINE AUTO NEGATIVE (NEGATIVE); BLOOD, URINE BLOOD NEGATIVE (NEGATIVE); COLOR, URINE YELLOW (YELLOW); GLUCOSE, URINE (UA) AUTO NEGATIVE (NEGATIVE); KETONE, URINE AUTO NEGATIVE (NEGATIVE); LEUKOCYTE ESTERASE, URINE AUTO 1+ (NEGATIVE); MUCUS, URINE SMALL (NEGATIVE); NITRITE, URINE AUTO NEGATIVE (NEGATIVE); PROTEIN, URINE AUTO NEGATIVE (NEGATIVE); RBC, URINE AUTO 1 /HPF (0-3); SPECIFIC GRAVITY URINE AUTO 1.024 (1.002-1.035); SQUAMOUS EPITHELIAL CELL UR AU 5 /HPF (0-6); UROBILINOGEN, URINE AUTO 0.2 mg/dL (0.0-2.0); WBC, URINE AUTO 2 /HPF (0-3)
[2024-02-08 09:45] LABS: BASO # 0.1 10^3/uL (0.0-0.2); BASO % 0.9 % (0.0-1.0); EOS # 0.1 10^3/uL (0.0-0.5); HEMATOCRIT 39.3 % (36.0-47.0); HEMOGLOBIN 13.4 g/dl (12.0-15.5); LYMPH # 3.1 10^3/uL (1.5-5.0); LYMPH % 29.7 % (24.0-44.0); MEAN CORPUSCULAR HEMOGLOBIN 32.1 pg (27.0-33.0); MEAN CORPUSCULAR HGB CONC 34.1 g/dl (32.0-36.5); MONO # 0.6 10^3/uL (0.0-0.8); MONO % 5.2 % (2.0-8.0); NEUTROPHILS # 6.6 10^3/uL (1.5-8.5); NEUTROPHILS % 62.8 % (36.0-66.0); PLATELET COUNT, AUTOMATED 324 10^3/uL (150-450); RED BLOOD COUNT 4.18 10^6/uL (4.00-5.40); WHITE BLOOD COUNT 10.5 10^3/uL (4.0-10.0)
[2024-02-08 10:19] LABS: ALBUMIN 4.2 G/DL (3.2-5.2); ALKALINE PHOSPHATASE 108 U/L (46-116); ALT/SGPT 32 U/L (7.0-40); AST/SGOT 12 U/L (<34); BILIRUBIN,TOTAL 0.2 MG/DL (0.3-1.2); BLOOD UREA NITROGEN 14 MG/DL (9-23); CALCIUM LEVEL 9.9 MG/DL (8.5-10.1); CARBON DIOXIDE LEVEL 23 MMOL/L (20-31); CHLORIDE LEVEL 103 MMOL/L (98-107); GLOMERULAR FILTRATION RATE > 60.0 (>58); GLUCOSE, FASTING 74 MG/DL (60-100); POTASSIUM SERUM 4.3 MMOL/L (3.5-5.1); SODIUM LEVEL 133 MMOL/L (136-145); THYROID STIMULATING HORMONE 0.833 uIU/ML (0.55-4.78); TOTAL PROTEIN 7.4 G/DL (5.7-8.2)
== END ==
LOC: M LAB 08:51
PROVIDERS: ATTEND Family Medicine
DX: R53.81 Other malaise (principal)

== ENCOUNTER 2024-02-12 07:13 | Outpatient (CLI) | payer MEDICARE, OTHER ==
[2024-02-12 07:10] VITALS: BP 114/64; O2SAT 98
[~2024-02-12 07:13] MED LIST changes: +SODIUM CHLORIDE 0.9% INJ 10 ML SYR IV PRN
[2024-02-12] MEDS: NS 1,000 ML IV ONE (07:15)
[2024-02-12] MEDS: SODIUM CHLORIDE 0.9% INJ 10 ML SYR IV SCH (07:16)
[2024-02-12 09:00] VITALS: BP 134/74; O2SAT 98
[2024-02-12] MEDS ORDERED: SODIUM CHLORIDE 0.9% INJ 10 ML SYR IV SCH (09:00)
== END 2024-02-12 09:00 ==
LOC: M INFU 07:13
PROVIDERS: ATTEND Internal Medicine Gastroenterology
DX: E86.0 Dehydration (principal); Z88.5 Allergy status to narcotic agent; Z88.3 Allergy status to other anti-infective agents; Z88.8 Allergy status to other drugs, medicaments and biological substances; Z91.041 Radiographic dye allergy status; Z91.040 Latex allergy status

== ENCOUNTER 2024-02-20 08:15 | Outpatient (CLI) | payer MEDICARE, OTHER ==
[~2024-02-20] VITALS: Ht 162.6 cm; Wt 81.8 kg
[2024-02-20 08:15] VITALS: BP 123/64; O2SAT 100
[~2024-02-20 08:15] MED LIST changes: -SODIUM CHLORIDE 0.9% INJ 10 ML SYR IV PRN
[2024-02-20] MEDS: SODIUM CHLORIDE 0.9% INJ 10 ML SYR IV SCH (08:28)
[2024-02-20] MEDS: NS 1,000 ML IV ONE (08:28)
[2024-02-20] MEDS ORDERED: SODIUM CHLORIDE 0.9% INJ 10 ML SYR IV PRN (08:30)
[2024-02-20 09:33] VITALS: BP 122/67; O2SAT 100
== END 2024-02-20 09:35 ==
LOC: M INFU 08:15
PROVIDERS: ATTEND Internal Medicine Gastroenterology
DX: E86.0 Dehydration (principal)

== ENCOUNTER 2024-02-26 07:00 | Outpatient (CLI) | payer MEDICARE, OTHER ==
[~2024-02-26 07:00] MED LIST changes: +SODIUM CHLORIDE 0.9% INJ 10 ML SYR IV PRN
[2024-02-26] MEDS: SODIUM CHLORIDE 0.9% INJ 10 ML SYR IV SCH (07:05)
[2024-02-26] MEDS: NS 1,000 ML IV ONE (07:05)
[2024-02-26 07:31] VITALS: BP 133/58; O2SAT 95
[2024-02-26] MEDS ORDERED: SODIUM CHLORIDE 0.9% INJ 10 ML SYR IV SCH (09:00)
== END 2024-02-26 08:15 ==
LOC: M INFU 07:00
PROVIDERS: ATTEND Internal Medicine Gastroenterology
DX: E86.0 Dehydration (principal); Z88.6 Allergy status to analgesic agent; Z88.5 Allergy status to narcotic agent; Z88.3 Allergy status to other anti-infective agents; Z88.8 Allergy status to other drugs, medicaments and biological substances; Z91.040 Latex allergy status; Z91.041 Radiographic dye allergy status; Z91.89 Other specified personal risk factors, not elsewhere classified

== ENCOUNTER 2024-02-28 07:00 | Outpatient (CLI) | payer MEDICARE, OTHER ==
[~2024-02-28 07:00] MED LIST changes: -SODIUM CHLORIDE 0.9% INJ 10 ML SYR IV PRN
[2024-02-28] MEDS: NS 1,000 ML IV ONE (07:01)
[2024-02-28] MEDS: SODIUM CHLORIDE 0.9% INJ 10 ML SYR IV PRN (07:02)
[2024-02-28 07:20] VITALS: BP 113/60; O2SAT 97
[2024-02-28 08:45] VITALS: BP 115/68; O2SAT 97
[2024-02-28] MEDS ORDERED: SODIUM CHLORIDE 0.9% INJ 10 ML SYR IV SCH ×2 (09:00)
== END 2024-02-28 08:30 ==
LOC: M INFU 07:00
PROVIDERS: ATTEND Internal Medicine Gastroenterology
DX: E86.0 Dehydration (principal); Z91.89 Other specified personal risk factors, not elsewhere classified; Z88.6 Allergy status to analgesic agent; Z88.3 Allergy status to other anti-infective agents; Z88.5 Allergy status to narcotic agent; Z88.8 Allergy status to other drugs, medicaments and biological substances; Z91.041 Radiographic dye allergy status; Z91.040 Latex allergy status

== ENCOUNTER 2024-03-04 07:05 | Outpatient (CLI) | payer MEDICARE, OTHER ==
[~2024-03-04] VITALS: Ht 162.6 cm; Wt 85.0 kg
[2024-03-04 07:05] VITALS: BP 111/3; O2SAT 96
[~2024-03-04 07:05] MED LIST changes: +SODIUM CHLORIDE 0.9% INJ 10 ML SYR IV PRN
[2024-03-04] MEDS: NS 1,000 ML IV ONE (07:11)
[2024-03-04] MEDS: SODIUM CHLORIDE 0.9% INJ 10 ML SYR IV SCH (07:12)
[2024-03-04 08:40] VITALS: BP 112/55; O2SAT 97
== END 2024-03-04 08:45 ==
LOC: M INFU 07:05
PROVIDERS: ATTEND Internal Medicine Gastroenterology
DX: E86.0 Dehydration (principal); R11.0 Nausea; K51.80 Other ulcerative colitis without complications; Z91.041 Radiographic dye allergy status; Z91.040 Latex allergy status; Z88.5 Allergy status to narcotic agent; Z88.8 Allergy status to other drugs, medicaments and biological substances

== ENCOUNTER 2024-03-11 06:53 | Outpatient (CLI) | payer MEDICARE, OTHER ==
[~2024-03-11] VITALS: Ht 162.6 cm; Wt 78.6 kg
[~2024-03-11 06:53] MED LIST changes: -SODIUM CHLORIDE 0.9% INJ 10 ML SYR IV PRN
[2024-03-11] MEDS ORDERED: SODIUM CHLORIDE 0.9% INJ 10 ML SYR IV PRN (07:00)
[2024-03-11 07:05] VITALS: BP 129/63; O2SAT 97
[2024-03-11] MEDS: SODIUM CHLORIDE 0.9% INJ 10 ML SYR IV SCH (07:15)
[2024-03-11] MEDS: NS 1,000 ML IV ONE (07:16)
[2024-03-11 09:00] VITALS: BP 128/64; O2SAT 97
[2024-03-11] MEDS ORDERED: SODIUM CHLORIDE 0.9% INJ 10 ML SYR IV SCH (09:00)
== END 2024-03-11 08:50 ==
LOC: M INFU 06:53
PROVIDERS: ATTEND Internal Medicine Gastroenterology
DX: E86.0 Dehydration (principal); R11.0 Nausea; K51.80 Other ulcerative colitis without complications; Z88.5 Allergy status to narcotic agent; Z88.8 Allergy status to other drugs, medicaments and biological substances; Z91.040 Latex allergy status; Z91.041 Radiographic dye allergy status

== ENCOUNTER 2024-03-18 06:44 | Outpatient (CLI) | payer MEDICARE, OTHER ==
[~2024-03-18] VITALS: Ht 162.6 cm; Wt 81.8 kg
[~2024-03-18 06:44] MED LIST changes: +GABA-1172 PO; -GABA-282 PO
[2024-03-18 07:00] VITALS: BP 121/63; O2SAT 97
[2024-03-18] MEDS ORDERED: SODIUM CHLORIDE 0.9% INJ 10 ML SYR IV PRN (07:00)
[2024-03-18] MEDS: NS 1,000 ML IV ONE (07:23)
[2024-03-18] MEDS: SODIUM CHLORIDE 0.9% INJ 10 ML SYR IV SCH (07:24)
[2024-03-18 08:48] VITALS: BP 105/54; O2SAT 97
== END 2024-03-18 08:50 ==
LOC: M INFU 06:44
PROVIDERS: ATTEND Internal Medicine Gastroenterology
DX: K51.80 Other ulcerative colitis without complications (principal); R11.0 Nausea; E86.0 Dehydration; Z88.5 Allergy status to narcotic agent; Z88.6 Allergy status to analgesic agent; Z88.3 Allergy status to other anti-infective agents; Z88.8 Allergy status to other drugs, medicaments and biological substances; Z91.041 Radiographic dye allergy status; Z91.040 Latex allergy status

== ENCOUNTER 2024-03-20 07:15 | Outpatient (CLI) | payer MEDICARE, OTHER ==
[~2024-03-20 07:15] MED LIST changes: -GABA-1172 PO; +GABA-282 PO
[2024-03-20] MEDS: NS 1,000 ML IV ONE (07:19)
[2024-03-20] MEDS: SODIUM CHLORIDE 0.9% INJ 10 ML SYR IV SCH (07:20)
[2024-03-20 07:21] VITALS: BP 125/76; O2SAT 97
[2024-03-20] MEDS ORDERED: SODIUM CHLORIDE 0.9% INJ 10 ML SYR IV PRN (07:30)
[2024-03-20] MEDS ORDERED: SODIUM CHLORIDE 0.9% INJ 10 ML SYR IV SCH (09:00)
== END 2024-03-20 08:30 ==
LOC: M INFU 07:15
PROVIDERS: ATTEND Internal Medicine Gastroenterology
DX: K51.80 Other ulcerative colitis without complications (principal); E86.0 Dehydration; R11.0 Nausea

== ENCOUNTER → 2024-03-21 | Outpatient (CLI) | payer MEDICARE, OTHER | LOC: M PLARAD 10:04 | PROVIDERS: ATTEND Family Medicine | DX: M48.061 Spinal stenosis, lumbar region without neurogenic claudication (principal); M51.26 Other intervertebral disc displacement, lumbar region; M51.27 Other intervertebral disc displacement, lumbosacral region; M51.36 Other intervertebral disc degeneration, lumbar region; M51.37 Other intervertebral disc degeneration, lumbosacral region ==

== ENCOUNTER 2024-03-27 07:30 | Outpatient (CLI) | payer MEDICARE, OTHER ==
[2024-03-27 07:30] VITALS: BP 127/84; O2SAT 98
[~2024-03-27 07:30] MED LIST changes: +SODIUM CHLORIDE 0.9% INJ 10 ML SYR IV PRN
[2024-03-27] MEDS: NS 1,000 ML IV SCH (07:34)
[2024-03-27] MEDS: SODIUM CHLORIDE 0.9% INJ 10 ML SYR IV SCH (07:38)
[2024-03-27] MEDS ORDERED: SODIUM CHLORIDE 0.9% INJ 10 ML SYR IV SCH (09:00)
[2024-03-27 09:12] VITALS: BP 134/79; O2SAT 96
== END 2024-03-27 09:15 ==
LOC: M INFU 07:30
PROVIDERS: ATTEND Internal Medicine Gastroenterology
DX: E86.0 Dehydration (principal)

== ENCOUNTER 2024-04-01 07:00 | Outpatient (CLI) | payer MEDICARE, OTHER ==
[~2024-04-01] VITALS: Ht 162.6 cm; Wt 82.0 kg
[2024-04-01 07:00] VITALS: BP 124/65; O2SAT 98
[~2024-04-01 07:00] MED LIST changes: -SODIUM CHLORIDE 0.9% INJ 10 ML SYR IV PRN
[2024-04-01] MEDS: NS 1,000 ML IV ONE (07:26)
[2024-04-01] MEDS ORDERED: SODIUM CHLORIDE 0.9% INJ 10 ML SYR IV PRN (08:00)
[2024-04-01 08:45] VITALS: BP 115/58; O2SAT 95
[2024-04-01] MEDS: SODIUM CHLORIDE 0.9% INJ 10 ML SYR IV SCH (08:45)
[2024-04-01] MEDS ORDERED: SODIUM CHLORIDE 0.9% INJ 10 ML SYR IV SCH (09:00)
== END 2024-04-01 08:50 ==
LOC: M INFU 07:00
PROVIDERS: ATTEND Internal Medicine Gastroenterology
DX: K51.80 Other ulcerative colitis without complications (principal); E86.0 Dehydration; R11.0 Nausea; Z88.6 Allergy status to analgesic agent; Z88.5 Allergy status to narcotic agent; Z88.3 Allergy status to other anti-infective agents; Z88.8 Allergy status to other drugs, medicaments and biological substances; Z91.040 Latex allergy status; Z91.041 Radiographic dye allergy status; Z91.89 Other specified personal risk factors, not elsewhere classified

== ENCOUNTER 2024-04-08 07:00 | Outpatient (CLI) | payer MEDICARE, OTHER ==
[~2024-04-08] VITALS: Ht 162.6 cm; Wt 81.8 kg
[2024-04-08] MEDS: NS 1,000 ML IV ONE (07:19)
[2024-04-08] MEDS: SODIUM CHLORIDE 0.9% INJ 10 ML SYR IV PRN (07:22)
[2024-04-08 08:25] VITALS: BP 127/77; O2SAT 96
== END 2024-04-08 08:40 | disposition home or self-care (01) ==
LOC: M INFU 07:00
PROVIDERS: ATTEND Internal Medicine Gastroenterology
DX: E86.0 Dehydration (principal); K51.80 Other ulcerative colitis without complications; R11.0 Nausea; Z88.6 Allergy status to analgesic agent; Z88.5 Allergy status to narcotic agent; Z88.3 Allergy status to other anti-infective agents; Z88.8 Allergy status to other drugs, medicaments and biological substances; Z91.89 Other specified personal risk factors, not elsewhere classified; Z91.041 Radiographic dye allergy status; Z91.040 Latex allergy status

== ENCOUNTER 2024-04-15 06:55 | Outpatient (CLI) | payer MEDICARE, OTHER ==
[~2024-04-15] VITALS: Ht 162.6 cm; Wt 73.0 kg
[~2024-04-15 06:55] MED LIST changes: +SODIUM CHLORIDE 0.9% INJ 10 ML SYR IV PRN
[2024-04-15 07:00] VITALS: BP 106/60; O2SAT 95
[2024-04-15] MEDS: NS 1,000 ML IV ONE (07:10)
[2024-04-15] MEDS: SODIUM CHLORIDE 0.9% INJ 10 ML SYR IV SCH (07:11)
[2024-04-15 08:45] VITALS: BP 115/63; O2SAT 98
== END 2024-04-15 08:45 ==
LOC: M INFU 06:55
PROVIDERS: ATTEND Internal Medicine Gastroenterology
DX: E86.0 Dehydration (principal); Z91.041 Radiographic dye allergy status; Z91.89 Other specified personal risk factors, not elsewhere classified; Z88.6 Allergy status to analgesic agent; Z91.040 Latex allergy status; Z88.5 Allergy status to narcotic agent; Z88.3 Allergy status to other anti-infective agents; Z88.8 Allergy status to other drugs, medicaments and biological substances

== ENCOUNTER 2024-04-22 07:00 | Outpatient (CLI) | payer MEDICARE, OTHER ==
[2024-04-22 07:00] VITALS: BP 128/62; O2SAT 98
[~2024-04-22 07:00] MED LIST changes: -SODIUM CHLORIDE 0.9% INJ 10 ML SYR IV PRN
[2024-04-22] MEDS ORDERED: SODIUM CHLORIDE 0.9% INJ 10 ML SYR IV PRN (07:05)
[2024-04-22] MEDS: SODIUM CHLORIDE 0.9% INJ 10 ML SYR IV SCH (07:09)
[2024-04-22] MEDS: NS 1,000 ML IV ONE (07:09)
== END 2024-04-22 08:50 ==
LOC: M INFU 07:00
PROVIDERS: ATTEND Internal Medicine Gastroenterology
DX: R11.0 Nausea (principal); E86.0 Dehydration; K51.80 Other ulcerative colitis without complications; Z91.041 Radiographic dye allergy status; Z91.89 Other specified personal risk factors, not elsewhere classified; Z88.6 Allergy status to analgesic agent; Z88.5 Allergy status to narcotic agent; Z88.3 Allergy status to other anti-infective agents; Z88.8 Allergy status to other drugs, medicaments and biological substances
CPT/HCPCS: 96360; J1642

== ENCOUNTER 2024-04-29 07:00 | Outpatient (CLI) | payer MEDICARE, OTHER ==
[~2024-04-29] VITALS: Ht 165.1 cm; Wt 86.4 kg
[~2024-04-29 07:00] MED LIST changes: +SODIUM CHLORIDE 0.9% INJ 10 ML SYR IV PRN
[2024-04-29] MEDS: SODIUM CHLORIDE 0.9% INJ 10 ML SYR IV SCH (07:06)
[2024-04-29] MEDS: NS 1,000 ML IV ONE (07:06)
[2024-04-29 07:15] VITALS: BP 132/81; O2SAT 97
[2024-04-29 08:45] VITALS: BP 134/61; O2SAT 98
[2024-04-29] MEDS ORDERED: SODIUM CHLORIDE 0.9% INJ 10 ML SYR IV SCH (09:00)
== END 2024-04-29 08:45 ==
LOC: M INFU 07:00
PROVIDERS: ATTEND Internal Medicine Gastroenterology
DX: E86.0 Dehydration (principal); R11.0 Nausea; K51.80 Other ulcerative colitis without complications; Z88.6 Allergy status to analgesic agent; Z88.5 Allergy status to narcotic agent; Z88.3 Allergy status to other anti-infective agents; Z88.8 Allergy status to other drugs, medicaments and biological substances; Z91.041 Radiographic dye allergy status; Z91.040 Latex allergy status; Z91.89 Other specified personal risk factors, not elsewhere classified
CPT/HCPCS: 96360; J1642

== ENCOUNTER 2024-05-01 06:55 | Outpatient (CLI) | payer MEDICARE, OTHER ==
[~2024-05-01] VITALS: Ht 162.6 cm; Wt 86.4 kg
[~2024-05-01 06:55] MED LIST changes: -SODIUM CHLORIDE 0.9% INJ 10 ML SYR IV PRN
[2024-05-01 07:00] VITALS: BP 105/56; O2SAT 93
[2024-05-01] MEDS: NS 1,000 ML IV ONE (07:04)
[2024-05-01] MEDS: SODIUM CHLORIDE 0.9% INJ 10 ML SYR IV PRN (07:04)
[2024-05-01 08:15] VITALS: BP 109/54; O2SAT 97
== END 2024-05-01 08:20 ==
LOC: M INFU 06:55
PROVIDERS: ATTEND Internal Medicine Gastroenterology
DX: E86.0 Dehydration (principal); R11.0 Nausea; K51.80 Other ulcerative colitis without complications; Z88.6 Allergy status to analgesic agent; Z88.5 Allergy status to narcotic agent; Z88.3 Allergy status to other anti-infective agents; Z88.8 Allergy status to other drugs, medicaments and biological substances; Z91.041 Radiographic dye allergy status; Z91.040 Latex allergy status; Z91.89 Other specified personal risk factors, not elsewhere classified
CPT/HCPCS: 96360; J1642

== ENCOUNTER 2024-05-08 07:00 | Outpatient (CLI) | payer MEDICARE, OTHER ==
[~2024-05-08] VITALS: Ht 162.6 cm; Wt 86.4 kg
[2024-05-08 07:00] VITALS: BP 132/58; O2SAT 98
[~2024-05-08 07:00] MED LIST changes: +SODIUM CHLORIDE 0.9% INJ 10 ML SYR IV PRN
[2024-05-08] MEDS: NS 1,000 ML IV SCH (07:06)
[2024-05-08] MEDS: SODIUM CHLORIDE 0.9% INJ 10 ML SYR IV SCH (07:08)
[2024-05-08] MEDS ORDERED: SODIUM CHLORIDE 0.9% INJ 10 ML SYR IV SCH (09:00)
== END 2024-05-08 08:00 ==
LOC: M INFU 07:00
PROVIDERS: ATTEND Internal Medicine Gastroenterology
DX: E86.0 Dehydration (principal); R11.0 Nausea; K51.80 Other ulcerative colitis without complications
CPT/HCPCS: 96360; J1642

== ENCOUNTER → 2024-05-12 | Outpatient (REF) | payer MEDICARE, OTHER ==
[~2024-05-12] MED LIST changes: +GABA-1172 PO; -GABA-282 PO; -SODIUM CHLORIDE 0.9% INJ 10 ML SYR IV PRN
== END ==
LOC: M SFHCDERM 11:44
PROVIDERS: ATTEND Nurse Practitioner Family
DX: D22.4 Melanocytic nevi of scalp and neck (principal)

== ENCOUNTER → 2024-05-12 | Outpatient (CLI) | payer MEDICARE, OTHER ==
[~2024-05-12] MED LIST changes: +E-Z-PAQUE 96% w/w SUSP 176GM BTL As Ordered ONE; -GABA-1172 PO; +GABA-282 PO
== END ==
LOC: M RAD 10:13
PROVIDERS: ATTEND Internal Medicine Gastroenterology
DX: R11.0 Nausea (principal); R10.12 Left upper quadrant pain; R68.83 Chills (without fever); K44.9 Diaphragmatic hernia without obstruction or gangrene; K21.9 Gastro-esophageal reflux disease without esophagitis; K86.1 Other chronic pancreatitis

== ENCOUNTER 2024-05-13 07:00 | Outpatient (CLI) | payer MEDICARE, OTHER ==
[~2024-05-13 07:00] MED LIST changes: -E-Z-PAQUE 96% w/w SUSP 176GM BTL As Ordered ONE
[2024-05-13] MEDS: SODIUM CHLORIDE 0.9% INJ 10 ML SYR IV PRN (07:09)
[2024-05-13] MEDS: NS 1,000 ML IV ONE (07:09)
[2024-05-13 07:14] VITALS: BP 118/67; O2SAT 97
== END 2024-05-13 09:00 ==
LOC: M INFU 07:00
PROVIDERS: ATTEND Internal Medicine Gastroenterology
DX: E86.0 Dehydration (principal); R11.0 Nausea; K51.80 Other ulcerative colitis without complications; Z88.5 Allergy status to narcotic agent; Z88.8 Allergy status to other drugs, medicaments and biological substances; Z91.040 Latex allergy status; Z91.041 Radiographic dye allergy status
CPT/HCPCS: 96360; J1642

== ENCOUNTER 2024-05-20 07:00 | Outpatient (CLI) | payer MEDICARE, OTHER ==
[~2024-05-20] VITALS: Ht 162.6 cm; Wt 86.3 kg
[2024-05-20 07:00] VITALS: BP 123/66; O2SAT 96
[~2024-05-20 07:00] MED LIST changes: +GABA-1172 PO; -GABA-282 PO; +SODIUM CHLORIDE 0.9% INJ 10 ML SYR IV PRN
[2024-05-20] MEDS: SODIUM CHLORIDE 0.9% INJ 10 ML SYR IV SCH (07:11)
[2024-05-20] MEDS: NS 1,000 ML IV SCH (07:11)
[2024-05-20 08:35] VITALS: BP 125/66; O2SAT 97
[2024-05-20] MEDS ORDERED: SODIUM CHLORIDE 0.9% INJ 10 ML SYR IV SCH (09:00)
== END 2024-05-20 08:54 ==
LOC: M INFU 07:00
PROVIDERS: ATTEND Internal Medicine Gastroenterology
DX: R11.0 Nausea (principal); E86.0 Dehydration; K51.80 Other ulcerative colitis without complications; Z88.5 Allergy status to narcotic agent; Z88.8 Allergy status to other drugs, medicaments and biological substances; Z91.041 Radiographic dye allergy status
CPT/HCPCS: 96360; 96361; J1642

== ENCOUNTER 2024-05-27 07:00 | Outpatient (CLI) | payer MEDICARE, OTHER ==
[~2024-05-27] VITALS: Ht 162.6 cm; Wt 190.0 kg
[2024-05-27 07:00] VITALS: BP 118/69; O2SAT 96
[2024-05-27] MEDS: NS 1,000 ML IV ONE (07:18)
[2024-05-27] MEDS: SODIUM CHLORIDE 0.9% INJ 10 ML SYR IV SCH (07:18)
[2024-05-27] MEDS ORDERED: SODIUM CHLORIDE 0.9% INJ 10 ML SYR IV SCH (09:00)
== END 2024-05-27 08:45 ==
LOC: M INFU 07:00
PROVIDERS: ATTEND Internal Medicine Gastroenterology
DX: R11.0 Nausea (principal); E86.0 Dehydration; K51.80 Other ulcerative colitis without complications; Z88.6 Allergy status to analgesic agent; Z88.5 Allergy status to narcotic agent; Z88.3 Allergy status to other anti-infective agents; Z88.8 Allergy status to other drugs, medicaments and biological substances; Z91.89 Other specified personal risk factors, not elsewhere classified; Z91.040 Latex allergy status; Z91.041 Radiographic dye allergy status
CPT/HCPCS: 96360; J1642

== ENCOUNTER 2024-05-29 07:00 | Outpatient (CLI) | payer MEDICARE, OTHER ==
[~2024-05-29] VITALS: Ht 160 cm; Wt 86.3 kg
[2024-05-29 07:00] VITALS: BP 157/98; O2SAT 97
[2024-05-29] MEDS: NS 1,000 ML IV ONE (07:09)
[2024-05-29] MEDS: SODIUM CHLORIDE 0.9% INJ 10 ML SYR IV SCH (07:10)
[2024-05-29 08:20] VITALS: BP 120/64; O2SAT 99
[2024-05-29] MEDS ORDERED: SODIUM CHLORIDE 0.9% INJ 10 ML SYR IV SCH (09:00)
== END 2024-05-29 08:20 ==
LOC: M INFU 07:00
PROVIDERS: ATTEND Internal Medicine Gastroenterology
DX: R11.0 Nausea (principal); E86.0 Dehydration; K51.80 Other ulcerative colitis without complications; Z88.6 Allergy status to analgesic agent; Z88.5 Allergy status to narcotic agent; Z88.3 Allergy status to other anti-infective agents; Z88.8 Allergy status to other drugs, medicaments and biological substances; Z91.041 Radiographic dye allergy status; Z91.89 Other specified personal risk factors, not elsewhere classified
CPT/HCPCS: 96360; J1642

== ENCOUNTER 2024-06-03 07:00 | Outpatient (CLI) | payer MEDICARE, OTHER ==
[~2024-06-03] VITALS: Ht 162.6 cm; Wt 85.0 kg
[~2024-06-03 07:00] MED LIST changes: -SODIUM CHLORIDE 0.9% INJ 10 ML SYR IV PRN
[2024-06-03 07:15] VITALS: BP 121/70; O2SAT 97
[2024-06-03] MEDS ORDERED: SODIUM CHLORIDE 0.9% INJ 10 ML SYR IV PRN (07:15)
[2024-06-03] MEDS: NS 1,000 ML IV ONE (07:17)
[2024-06-03] MEDS: SODIUM CHLORIDE 0.9% INJ 10 ML SYR IV SCH (07:18)
[2024-06-03 08:40] VITALS: BP 128/72; O2SAT 97
== END 2024-06-03 08:40 ==
LOC: M INFU 07:00
PROVIDERS: ATTEND Internal Medicine Gastroenterology
DX: R11.0 Nausea (principal); R86.0 Abnormal level of enzymes in specimens from male genital organs; K51.80 Other ulcerative colitis without complications
CPT/HCPCS: 96360; J1642

== ENCOUNTER 2024-06-10 07:00 | Outpatient (CLI) | payer MEDICARE, OTHER ==
[~2024-06-10] VITALS: Ht 162.6 cm; Wt 86.8 kg
[~2024-06-10 07:00] MED LIST changes: +SODIUM CHLORIDE 0.9% INJ 10 ML SYR IV PRN
[2024-06-10] MEDS: NS 1,000 ML IV ONE (07:03)
[2024-06-10] MEDS: SODIUM CHLORIDE 0.9% INJ 10 ML SYR IV SCH (07:03)
[2024-06-10 07:15] VITALS: BP 133/70; O2SAT 99
[2024-06-10 08:40] VITALS: BP 138/76; O2SAT 98
[2024-06-10] MEDS ORDERED: SODIUM CHLORIDE 0.9% INJ 10 ML SYR IV SCH (09:00)
== END 2024-06-10 08:40 ==
LOC: M INFU 07:00
PROVIDERS: ATTEND Internal Medicine Gastroenterology
DX: E86.0 Dehydration (principal); K51.80 Other ulcerative colitis without complications; R11.0 Nausea; Z88.3 Allergy status to other anti-infective agents; Z88.5 Allergy status to narcotic agent; Z88.6 Allergy status to analgesic agent; Z88.8 Allergy status to other drugs, medicaments and biological substances; Z91.040 Latex allergy status; Z91.041 Radiographic dye allergy status
CPT/HCPCS: 96360; 96361; J1642

== ENCOUNTER 2024-06-17 07:00 | Outpatient (CLI) | payer MEDICARE, OTHER ==
[2024-06-17] MEDS: NS 1,000 ML IV ONE (07:03)
[2024-06-17] MEDS: SODIUM CHLORIDE 0.9% INJ 10 ML SYR IV PRN (07:04)
[2024-06-17 07:28] VITALS: BP 125/70; O2SAT 98
[2024-06-17] MEDS ORDERED: SODIUM CHLORIDE 0.9% INJ 10 ML SYR IV SCH (09:00)
== END 2024-06-17 08:55 | disposition home or self-care (01) ==
LOC: M INFU 07:00
PROVIDERS: ATTEND Internal Medicine Gastroenterology
DX: E86.0 Dehydration (principal); Z88.5 Allergy status to narcotic agent; Z88.6 Allergy status to analgesic agent; Z91.041 Radiographic dye allergy status; Z91.040 Latex allergy status
CPT/HCPCS: 96523; J1642

== ENCOUNTER → 2024-06-17 | Outpatient (REF) | payer MEDICARE, OTHER ==
[~2024-06-17] MED LIST changes: -SODIUM CHLORIDE 0.9% INJ 10 ML SYR IV PRN
== END ==
LOC: M PLALAB 14:24
PROVIDERS: ATTEND Advanced Practice Midwife
DX: Z12.4 Encounter for screening for malignant neoplasm of cervix (principal); Z11.3 Encounter for screening for infections with a predominantly sexual mode of transmission

== ENCOUNTER 2024-06-24 06:55 | Outpatient (CLI) | payer MEDICARE, OTHER ==
[2024-06-24 07:00] VITALS: BP 112/72; O2SAT 99
[2024-06-24] MEDS ORDERED: SODIUM CHLORIDE 0.9% INJ 10 ML SYR IV PRN (07:00)
[2024-06-24] MEDS: NS 1,000 ML IV ONE (07:04)
[2024-06-24] MEDS: SODIUM CHLORIDE 0.9% INJ 10 ML SYR IV SCH (07:04)
[2024-06-24 08:33] VITALS: BP 125/62; O2SAT 99
== END 2024-06-24 08:35 ==
LOC: M INFU 06:55
PROVIDERS: ATTEND Internal Medicine Gastroenterology
DX: E86.0 Dehydration (principal); K51.80 Other ulcerative colitis without complications; R11.0 Nausea; Z91.041 Radiographic dye allergy status; Z91.89 Other specified personal risk factors, not elsewhere classified; Z91.040 Latex allergy status; Z88.5 Allergy status to narcotic agent; Z88.3 Allergy status to other anti-infective agents; Z88.8 Allergy status to other drugs, medicaments and biological substances; Z88.6 Allergy status to analgesic agent
CPT/HCPCS: 96360; J1642

== ENCOUNTER 2024-07-01 07:05 | Outpatient (CLI) | payer MEDICARE, OTHER ==
[~2024-07-01] VITALS: Ht 162.6 cm; Wt 86.3 kg
[~2024-07-01 07:05] MED LIST changes: +SODIUM CHLORIDE 0.9% INJ 10 ML SYR IV PRN
[2024-07-01] MEDS: SODIUM CHLORIDE 0.9% INJ 10 ML SYR IV SCH (07:08)
[2024-07-01] MEDS: NS 1,000 ML IV ONE (07:08)
[2024-07-01 07:10] VITALS: BP 134/91; O2SAT 98
[2024-07-01 08:32] VITALS: BP 124/65; O2SAT 99
[2024-07-01] MEDS ORDERED: LOPI600T (11:20)
[2024-07-01] MEDS ORDERED: ESTRADIOL (11:20)
[2024-07-01] MEDS ORDERED: OXYC10TA3 (11:20)
[2024-07-01] MEDS ORDERED: PYRI1TAB5 PO (16:34)
== END 2024-07-01 08:30 ==
LOC: M INFU 07:05
PROVIDERS: ATTEND Internal Medicine Gastroenterology
DX: R11.0 Nausea (principal); E86.0 Dehydration; K51.80 Other ulcerative colitis without complications

== ENCOUNTER 2024-07-01 10:47 | Emergency (ER) | payer MEDICARE, OTHER ==
[~2024-07-01] VITALS: Ht 162.6 cm; Wt 87.0 kg
[~2024-07-01 10:47] MED LIST changes: -SODIUM CHLORIDE 0.9% INJ 10 ML SYR IV PRN
[2024-07-01 10:51] VITALS: TEMP 98
[2024-07-01] MEDS ORDERED: OXYC10TA3 (11:20)
[2024-07-01] MEDS ORDERED: LOPI600T (11:20)
[2024-07-01] MEDS ORDERED: ESTRADIOL (11:20)
[2024-07-01 12:49] LABS: BASO # 0.1 10^3/uL (0.0-0.2); BASO % 0.4 % (0.0-1.0); EOS # 0.1 10^3/uL (0.0-0.5); EOS % 0.4 % (0.0-3.0); HEMATOCRIT 38.9 % (36.0-47.0); HEMOGLOBIN 12.8 g/dl (12.0-15.5); LYMPH # 2.4 10^3/uL (1.5-5.0); LYMPH % 20.3 % (24.0-44.0); MEAN CORPUSCULAR HEMOGLOBIN 30.5 pg (27.0-33.0); MEAN CORPUSCULAR HGB CONC 32.9 g/dl (32.0-36.5); MEAN CORPUSCULAR VOLUME 92.8 fl (80.0-96.0); MONO # 0.6 10^3/uL (0.0-0.8); MONO % 4.8 % (2.0-8.0); NEUTROPHILS # 8.8 10^3/uL (1.5-8.5); NEUTROPHILS % 73.7 % (36.0-66.0); PLATELET COUNT, AUTOMATED 381 10^3/uL (150-450); RED BLOOD COUNT 4.19 10^6/uL (4.00-5.40); WHITE BLOOD COUNT 11.9 10^3/uL (4.0-10.0)
[2024-07-01 13:12] LABS: LIPASE 50 U/L (12-53)
[2024-07-01 13:14] LABS: ALKALINE PHOSPHATASE 103 U/L (35-104); ALT/SGPT 30 U/L (7.0-40); AST/SGOT 9 U/L (<34); BILIRUBIN,DIRECT < 0.1 MG/DL (<0.4); BILIRUBIN,TOTAL 0.4 MG/DL (0.3-1.2); BLOOD UREA NITROGEN 11 MG/DL (9-23); CALCIUM LEVEL 9.7 MG/DL (8.5-10.1); CARBON DIOXIDE LEVEL 26 MMOL/L (20-31); CHLORIDE LEVEL 107 MMOL/L (98-107); CREATININE FOR GFR 0.62 MG/DL (0.55-1.30); GLOMERULAR FILTRATION RATE > 60.0 (>58); GLUCOSE, FASTING 99 MG/DL (60-100); POTASSIUM SERUM 4.3 MMOL/L (3.5-5.1); SODIUM LEVEL 138 MMOL/L (136-145); TOTAL PROTEIN 8.1 G/DL (5.7-8.2)
[2024-07-01] MEDS ORDERED: PYRI1TAB5 PO (16:34)
[2024-07-01] MEDS: PHENAZOPYRIDINE 100 MG TAB PO ONE (16:37)
[2024-07-01 16:42] VITALS: BP 153/80; O2SAT 98
== END 2024-07-01 16:47 | disposition home or self-care (01) ==
LOC: M ED 10:47
DX: N21.0 Calculus in bladder (principal); K80.20 Calculus of gallbladder without cholecystitis without obstruction; Z87.442 Personal history of urinary calculi; E78.5 Hyperlipidemia, unspecified; F43.10 Post-traumatic stress disorder, unspecified; F32.A Depression, unspecified; Z87.19 Personal history of other diseases of the digestive system; Z79.899 Other long term (current) drug therapy; Z88.6 Allergy status to analgesic agent; Z88.5 Allergy status to narcotic agent; Z88.8 Allergy status to other drugs, medicaments and biological substances; Z91.89 Other specified personal risk factors, not elsewhere classified; Z91.040 Latex allergy status; Z91.041 Radiographic dye allergy status; R11.0 Nausea; E86.0 Dehydration; K51.80 Other ulcerative colitis without complications
CPT/HCPCS: 74176; 80048; 80076; 81001; 83690; 85025; 96360; 96523; 99283; J1642

== ENCOUNTER 2024-07-03 07:00 | Outpatient (CLI) | payer MEDICARE, OTHER ==
[~2024-07-03] VITALS: Ht 162.6 cm; Wt 86.3 kg
[~2024-07-03 07:00] MED LIST changes: +ESTRADIOL; +LOPI600T; +OXYC10TA3; +PYRI1TAB5 PO; +SODIUM CHLORIDE 0.9% INJ 10 ML SYR IV PRN
[2024-07-03] MEDS: SODIUM CHLORIDE 0.9% INJ 10 ML SYR IV SCH (07:00)
[2024-07-03] MEDS: NS 1,000 ML IV ONE (07:01)
[2024-07-03 07:06] VITALS: BP 138/78; O2SAT 98
[2024-07-03 08:35] VITALS: BP 124/76; O2SAT 98
== END 2024-07-03 08:35 ==
LOC: M INFU 07:00
PROVIDERS: ATTEND Internal Medicine Gastroenterology
DX: E86.0 Dehydration (principal); K51.80 Other ulcerative colitis without complications; R11.0 Nausea; Z88.3 Allergy status to other anti-infective agents; Z88.5 Allergy status to narcotic agent; Z88.8 Allergy status to other drugs, medicaments and biological substances; Z91.89 Other specified personal risk factors, not elsewhere classified; Z91.040 Latex allergy status; Z91.041 Radiographic dye allergy status
CPT/HCPCS: 96360; J1642

== ENCOUNTER 2024-07-08 06:48 | Outpatient (CLI) | payer MEDICARE, OTHER ==
[~2024-07-08] VITALS: Ht 162.6 cm; Wt 85.5 kg
[2024-07-08 07:00] VITALS: BP 113/64; O2SAT 97
[2024-07-08] MEDS: SODIUM CHLORIDE 0.9% INJ 10 ML SYR IV SCH (07:14)
[2024-07-08] MEDS: NS 1,000 ML IV ONE (07:14)
== END 2024-07-08 08:47 | disposition home or self-care (01) ==
LOC: M INFU 06:48
PROVIDERS: ATTEND Internal Medicine Gastroenterology
DX: E86.0 Dehydration (principal); R11.0 Nausea; K51.80 Other ulcerative colitis without complications; Z88.6 Allergy status to analgesic agent; Z88.5 Allergy status to narcotic agent; Z88.3 Allergy status to other anti-infective agents; Z88.8 Allergy status to other drugs, medicaments and biological substances; Z91.89 Other specified personal risk factors, not elsewhere classified; Z91.040 Latex allergy status; Z91.041 Radiographic dye allergy status
CPT/HCPCS: 96360; 96361; J1642

== ENCOUNTER 2024-07-15 07:00 | Outpatient (CLI) | payer MEDICARE, OTHER ==
[2024-07-15] MEDS: NS 1,000 ML IV SCH (07:08)
[2024-07-15] MEDS: SODIUM CHLORIDE 0.9% INJ 10 ML SYR IV SCH (07:08)
[2024-07-15 07:10] VITALS: BP 120/71; O2SAT 96
[2024-07-15 08:30] VITALS: BP 112/69; O2SAT 97; O2SAT 99
[2024-07-15] MEDS ORDERED: SODIUM CHLORIDE 0.9% INJ 10 ML SYR IV SCH (09:00)
== END 2024-07-15 08:30 ==
LOC: M INFU 07:00
PROVIDERS: ATTEND Internal Medicine Gastroenterology
DX: E86.0 Dehydration (principal); R11.0 Nausea; K51.80 Other ulcerative colitis without complications; Z88.6 Allergy status to analgesic agent; Z88.5 Allergy status to narcotic agent; Z88.3 Allergy status to other anti-infective agents; Z88.8 Allergy status to other drugs, medicaments and biological substances; Z91.041 Radiographic dye allergy status; Z91.040 Latex allergy status
CPT/HCPCS: 96360; J1642

== ENCOUNTER 2024-07-22 07:10 | Outpatient (CLI) | payer MEDICARE, OTHER ==
[2024-07-22 07:10] VITALS: BP 132/61; O2SAT 95
[2024-07-22] MEDS: NS 1,000 ML IV ONE (07:20)
[2024-07-22] MEDS: SODIUM CHLORIDE 0.9% INJ 10 ML SYR IV SCH (07:21)
[2024-07-22 08:25] VITALS: BP 105/67; O2SAT 100
== END 2024-07-22 08:35 ==
LOC: M INFU 07:10
PROVIDERS: ATTEND Internal Medicine Gastroenterology
DX: E86.0 Dehydration (principal); Z88.5 Allergy status to narcotic agent; Z88.6 Allergy status to analgesic agent; Z88.8 Allergy status to other drugs, medicaments and biological substances; Z91.041 Radiographic dye allergy status; Z91.040 Latex allergy status; Z91.048 Other nonmedicinal substance allergy status
CPT/HCPCS: 96360; J1642

== ENCOUNTER 2024-07-29 07:00 | Outpatient (CLI) | payer MEDICARE, OTHER ==
[~2024-07-29] VITALS: Ht 162.6 cm; Wt 85.4 kg
[2024-07-29 07:00] VITALS: BP 134/84; O2SAT 98
[2024-07-29] MEDS: NS 1,000 ML IV ONE (07:10)
[2024-07-29] MEDS: SODIUM CHLORIDE 0.9% INJ 10 ML SYR IV SCH (07:11)
[2024-07-29] MEDS ORDERED: SODIUM CHLORIDE 0.9% INJ 10 ML SYR IV SCH (09:00)
== END 2024-07-29 08:25 ==
LOC: M INFU 07:00
PROVIDERS: ATTEND Internal Medicine Gastroenterology
DX: R11.0 Nausea (principal); E86.0 Dehydration; K51.80 Other ulcerative colitis without complications
CPT/HCPCS: 96360; J1642

== ENCOUNTER 2024-08-05 06:59 | Outpatient (CLI) | payer MEDICARE, OTHER ==
[~2024-08-05] VITALS: Ht 162.6 cm; Wt 85.5 kg
[~2024-08-05 06:59] MED LIST changes: -SODIUM CHLORIDE 0.9% INJ 10 ML SYR IV PRN
[2024-08-05] MEDS ORDERED: SODIUM CHLORIDE 0.9% INJ 10 ML SYR IV PRN (07:00)
[2024-08-05] MEDS: SODIUM CHLORIDE 0.9% INJ 10 ML SYR IV SCH (07:10)
[2024-08-05] MEDS: NS (Normal Saline) 0.9% 1,000 ML IV ONE (07:10)
[2024-08-05 07:20] VITALS: BP 121/64; O2SAT 97
[2024-08-05 08:20] VITALS: BP 119/58; O2SAT 98
== END 2024-08-05 08:25 ==
LOC: M INFU 06:59
PROVIDERS: ATTEND Internal Medicine Gastroenterology
DX: E86.0 Dehydration (principal); R11.0 Nausea; K51.80 Other ulcerative colitis without complications; Z88.3 Allergy status to other anti-infective agents; Z88.5 Allergy status to narcotic agent; Z88.6 Allergy status to analgesic agent; Z88.8 Allergy status to other drugs, medicaments and biological substances; Z91.89 Other specified personal risk factors, not elsewhere classified; Z91.040 Latex allergy status; Z91.041 Radiographic dye allergy status
CPT/HCPCS: 96360; J1642

== ENCOUNTER 2024-08-07 07:08 | Outpatient (CLI) | payer MEDICARE, OTHER ==
[~2024-08-07] VITALS: Ht 162.6 cm; Wt 84.1 kg
[~2024-08-07 07:08] MED LIST changes: +SODIUM CHLORIDE 0.9% INJ 10 ML SYR IV PRN
[2024-08-07] MEDS: SODIUM CHLORIDE 0.9% INJ 10 ML SYR IV SCH (07:08)
[2024-08-07] MEDS: NS (Normal Saline) 0.9% 1,000 ML IV ONE (07:08)
[2024-08-07 07:19] VITALS: BP 136/73; O2SAT 96
[2024-08-07 08:30] VITALS: BP 134/69; O2SAT 98
[2024-08-07] MEDS ORDERED: SODIUM CHLORIDE 0.9% INJ 10 ML SYR IV SCH (09:00)
== END 2024-08-07 08:30 | disposition home or self-care (01) ==
LOC: M INFU 07:08
PROVIDERS: ATTEND Internal Medicine Gastroenterology
DX: E86.0 Dehydration (principal); K51.80 Other ulcerative colitis without complications; R11.0 Nausea; Z88.6 Allergy status to analgesic agent; Z88.3 Allergy status to other anti-infective agents; Z88.5 Allergy status to narcotic agent; Z88.8 Allergy status to other drugs, medicaments and biological substances; Z91.89 Other specified personal risk factors, not elsewhere classified; Z91.041 Radiographic dye allergy status; Z91.040 Latex allergy status
CPT/HCPCS: 96360; J1642

== ENCOUNTER 2024-08-12 06:40 | Outpatient (CLI) | payer MEDICARE, OTHER ==
[~2024-08-12 06:40] MED LIST changes: -SODIUM CHLORIDE 0.9% INJ 10 ML SYR IV PRN
[2024-08-12] MEDS: NS (Normal Saline) 0.9% 1,000 ML IV ONE (06:50)
[2024-08-12 07:02] VITALS: BP 138/81; O2SAT 99
[2024-08-12] MEDS ORDERED: SODIUM CHLORIDE 0.9% INJ 10 ML SYR IV PRN (07:15)
[2024-08-12 07:54] VITALS: BP 129/79; O2SAT 98
[2024-08-12] MEDS ORDERED: SODIUM CHLORIDE 0.9% INJ 10 ML SYR IV SCH (09:00)
== END 2024-08-12 07:55 | disposition home or self-care (01) ==
LOC: M INFU 06:40
PROVIDERS: ATTEND Internal Medicine Gastroenterology
DX: E86.0 Dehydration (principal); K51.80 Other ulcerative colitis without complications; R11.0 Nausea; Z88.8 Allergy status to other drugs, medicaments and biological substances; Z88.6 Allergy status to analgesic agent; Z88.5 Allergy status to narcotic agent; Z88.3 Allergy status to other anti-infective agents; Z91.89 Other specified personal risk factors, not elsewhere classified; Z91.040 Latex allergy status
CPT/HCPCS: 96360; J1642

== ENCOUNTER 2024-08-14 06:50 | Outpatient (CLI) | payer MEDICARE, OTHER ==
[~2024-08-14] VITALS: Ht 162.6 cm; Wt 84.0 kg
[2024-08-14 07:00] VITALS: BP 133/84; O2SAT 99
[2024-08-14] MEDS: NS (Normal Saline) 0.9% 1,000 ML IV ONE (07:02)
[2024-08-14] MEDS ORDERED: SODIUM CHLORIDE 0.9% INJ 10 ML SYR IV PRN (08:25)
[2024-08-14] MEDS: SODIUM CHLORIDE 0.9% INJ 10 ML SYR IV SCH (08:27)
[2024-08-14 08:28] VITALS: BP 114/78; O2SAT 99
== END 2024-08-14 08:30 | disposition home or self-care (01) ==
LOC: M INFU 06:50
PROVIDERS: ATTEND Internal Medicine Gastroenterology
DX: E86.0 Dehydration (principal); K51.80 Other ulcerative colitis without complications; R11.0 Nausea; Z91.041 Radiographic dye allergy status; Z91.89 Other specified personal risk factors, not elsewhere classified; Z88.6 Allergy status to analgesic agent; Z91.040 Latex allergy status; Z88.5 Allergy status to narcotic agent; Z88.3 Allergy status to other anti-infective agents; Z88.8 Allergy status to other drugs, medicaments and biological substances
CPT/HCPCS: 96360; J1642

== ENCOUNTER 2024-08-19 07:00 | Outpatient (CLI) | payer MEDICARE, OTHER ==
[2024-08-19 07:00] VITALS: BP 157/73; O2SAT 97
[~2024-08-19 07:00] MED LIST changes: +NS (Normal Saline) 0.9% 1,000 ML IV SCH; +SODIUM CHLORIDE 0.9% INJ 10 ML SYR IV PRN
[2024-08-19] MEDS: SODIUM CHLORIDE 0.9% INJ 10 ML SYR IV SCH (07:02)
[2024-08-19] MEDS: NS 500 ML IV SCH (07:37)
== END 2024-08-19 08:00 ==
LOC: M INFU 07:00
PROVIDERS: ATTEND Internal Medicine Gastroenterology
DX: R11.0 Nausea (principal); E86.0 Dehydration; K51.80 Other ulcerative colitis without complications; Z91.89 Other specified personal risk factors, not elsewhere classified; Z88.5 Allergy status to narcotic agent; Z88.3 Allergy status to other anti-infective agents; Z88.8 Allergy status to other drugs, medicaments and biological substances; Z91.040 Latex allergy status; Z91.041 Radiographic dye allergy status
CPT/HCPCS: 96360; J1642

== ENCOUNTER 2024-08-21 06:43 | Outpatient (CLI) | payer MEDICARE, OTHER ==
[~2024-08-21] VITALS: Ht 162.6 cm; Wt 84.0 kg
[~2024-08-21 06:43] MED LIST changes: -NS (Normal Saline) 0.9% 1,000 ML IV SCH; -SODIUM CHLORIDE 0.9% INJ 10 ML SYR IV PRN
[2024-08-21] MEDS ORDERED: SODIUM CHLORIDE 0.9% INJ 10 ML SYR IV PRN (07:10)
[2024-08-21] MEDS: NS (Normal Saline) 0.9% 1,000 ML IV ONE (07:11)
[2024-08-21] MEDS: SODIUM CHLORIDE 0.9% INJ 10 ML SYR IV SCH (08:19)
[2024-08-21 08:30] VITALS: BP_SYST 108; BP_SYST 110; BP_DIAS 67; BP_DIAS 74; O2SAT 97; O2SAT 98
== END 2024-08-21 08:30 ==
LOC: M INFU 06:43
PROVIDERS: ATTEND Internal Medicine Gastroenterology
DX: E86.0 Dehydration (principal); K51.80 Other ulcerative colitis without complications; R11.0 Nausea; Z88.6 Allergy status to analgesic agent; Z88.8 Allergy status to other drugs, medicaments and biological substances; Z88.5 Allergy status to narcotic agent; Z88.3 Allergy status to other anti-infective agents; Z91.89 Other specified personal risk factors, not elsewhere classified; Z91.040 Latex allergy status; Z91.041 Radiographic dye allergy status
CPT/HCPCS: 96360; J1642

== ENCOUNTER 2024-08-26 06:05 | Outpatient (CLI) | payer MEDICARE, OTHER ==
[2024-08-26] MEDS: NS (Normal Saline) 0.9% 1,000 ML IV ONE (07:09)
[2024-08-26 07:16] VITALS: BP 104/78; O2SAT 96
[2024-08-26] MEDS ORDERED: SODIUM CHLORIDE 0.9% INJ 10 ML SYR IV PRN (08:20)
[2024-08-26] MEDS: SODIUM CHLORIDE 0.9% INJ 10 ML SYR IV SCH (08:23)
[2024-08-26 08:30] VITALS: BP 113/81; O2SAT 97
== END 2024-08-26 08:37 ==
LOC: M INFU 06:05
PROVIDERS: ATTEND Internal Medicine Gastroenterology
DX: E86.0 Dehydration (principal); R11.0 Nausea; K51.80 Other ulcerative colitis without complications; Z88.6 Allergy status to analgesic agent; Z88.5 Allergy status to narcotic agent; Z88.3 Allergy status to other anti-infective agents; Z88.8 Allergy status to other drugs, medicaments and biological substances; Z91.041 Radiographic dye allergy status; Z91.040 Latex allergy status
CPT/HCPCS: 96360; J1642

== ENCOUNTER 2024-09-02 07:00 | Outpatient (CLI) | payer MEDICARE, OTHER ==
[~2024-09-02] VITALS: Ht 162.6 cm; Wt 84.1 kg
[2024-09-02] MEDS: NS (Normal Saline) 0.9% 1,000 ML IV ONE (07:01)
[2024-09-02] MEDS: SODIUM CHLORIDE 0.9% INJ 10 ML SYR IV PRN (07:03)
[2024-09-02 07:14] VITALS: BP 135/90; O2SAT 96
[2024-09-02] MEDS ORDERED: SODIUM CHLORIDE 0.9% INJ 10 ML SYR IV SCH (09:00)
== END 2024-09-02 08:18 | disposition home or self-care (01) ==
LOC: M INFU 07:00
PROVIDERS: ATTEND Internal Medicine Gastroenterology
DX: E86.0 Dehydration (principal); Z88.5 Allergy status to narcotic agent; Z88.6 Allergy status to analgesic agent; Z88.8 Allergy status to other drugs, medicaments and biological substances; Z91.041 Radiographic dye allergy status; Z91.048 Other nonmedicinal substance allergy status
CPT/HCPCS: 96360; J1642

== ENCOUNTER 2024-09-04 07:00 | Outpatient (CLI) | payer MEDICARE, OTHER ==
[~2024-09-04 07:00] MED LIST changes: +SODIUM CHLORIDE 0.9% INJ 10 ML SYR IV PRN
[2024-09-04] MEDS: SODIUM CHLORIDE 0.9% INJ 10 ML SYR IV SCH (07:09)
[2024-09-04] MEDS: NS (Normal Saline) 0.9% 1,000 ML IV ONE (07:09)
[2024-09-04 07:40] VITALS: BP 143/72; O2SAT 97
[2024-09-04 08:25] VITALS: BP 131/85; O2SAT 99
== END 2024-09-04 08:45 ==
LOC: M INFU 07:00
PROVIDERS: ATTEND Internal Medicine Gastroenterology
DX: E86.0 Dehydration (principal); R11.0 Nausea; K51.80 Other ulcerative colitis without complications; Z88.3 Allergy status to other anti-infective agents; Z88.5 Allergy status to narcotic agent; Z88.6 Allergy status to analgesic agent; Z88.8 Allergy status to other drugs, medicaments and biological substances; Z91.040 Latex allergy status; Z91.041 Radiographic dye allergy status
CPT/HCPCS: 96360; 96361; J1642

== ENCOUNTER → 2024-09-05 | Outpatient (REF) | payer MEDICARE, OTHER ==
[~2024-09-05] MED LIST changes: -SODIUM CHLORIDE 0.9% INJ 10 ML SYR IV PRN
== END ==
LOC: M LAB REF 13:10
PROVIDERS: ATTEND Plastic Surgery Surgery of the Hand
DX: D22.4 Melanocytic nevi of scalp and neck (principal)

== ENCOUNTER 2024-09-11 06:55 | Outpatient (CLI) | payer MEDICARE, OTHER ==
[2024-09-11] MEDS: NS (Normal Saline) 0.9% 1,000 ML IV ONE (06:53)
[2024-09-11 06:55] VITALS: BP 133/82; O2SAT 98
[2024-09-11] MEDS: SODIUM CHLORIDE 0.9% INJ 10 ML SYR IV SCH (06:55)
[2024-09-11] MEDS ORDERED: SODIUM CHLORIDE 0.9% INJ 10 ML SYR IV PRN (07:00)
[2024-09-11 08:10] VITALS: BP 134/76; O2SAT 98
== END 2024-09-11 08:10 ==
LOC: M INFU 06:55
PROVIDERS: ATTEND Internal Medicine Gastroenterology
DX: E86.0 Dehydration (principal); R11.0 Nausea; K51.80 Other ulcerative colitis without complications; Z88.6 Allergy status to analgesic agent; Z88.5 Allergy status to narcotic agent; Z88.3 Allergy status to other anti-infective agents; Z88.8 Allergy status to other drugs, medicaments and biological substances; Z91.89 Other specified personal risk factors, not elsewhere classified; Z91.040 Latex allergy status; Z91.041 Radiographic dye allergy status
CPT/HCPCS: 96360; J1642

== ENCOUNTER 2024-09-18 07:00 | Outpatient (CLI) | payer MEDICARE, OTHER ==
[~2024-09-18 07:00] MED LIST changes: +SODIUM CHLORIDE 0.9% INJ 10 ML SYR IV PRN
[2024-09-18] MEDS: SODIUM CHLORIDE 0.9% INJ 10 ML SYR IV SCH (07:02)
[2024-09-18] MEDS: NS (Normal Saline) 0.9% 1,000 ML IV ONE (07:05)
== END 2024-09-18 08:05 ==
LOC: M INFU 07:00
PROVIDERS: ATTEND Internal Medicine Gastroenterology
DX: E86.0 Dehydration (principal); K51.80 Other ulcerative colitis without complications; R11.0 Nausea; Z88.6 Allergy status to analgesic agent; Z88.5 Allergy status to narcotic agent; Z88.3 Allergy status to other anti-infective agents; Z88.8 Allergy status to other drugs, medicaments and biological substances; Z91.041 Radiographic dye allergy status; Z91.040 Latex allergy status; Z91.89 Other specified personal risk factors, not elsewhere classified
CPT/HCPCS: 96360; J1642

== ENCOUNTER 2024-09-25 06:50 | Outpatient (CLI) | payer MEDICARE, OTHER ==
[~2024-09-25] VITALS: Ht 162.6 cm; Wt 84.0 kg
[~2024-09-25 06:50] MED LIST changes: -SODIUM CHLORIDE 0.9% INJ 10 ML SYR IV PRN
[2024-09-25] MEDS ORDERED: SODIUM CHLORIDE 0.9% INJ 10 ML SYR IV PRN (07:00)
[2024-09-25] MEDS: NS (Normal Saline) 0.9% 1,000 ML IV ONE (07:03)
[2024-09-25] MEDS: SODIUM CHLORIDE 0.9% INJ 10 ML SYR IV SCH (07:05)
[2024-09-25 07:08] VITALS: BP 122/79; O2SAT 98
[2024-09-25 08:18] VITALS: BP 125/69; O2SAT 97
== END 2024-09-25 08:20 | disposition home or self-care (01) ==
LOC: M INFU 06:50
PROVIDERS: ATTEND Internal Medicine Gastroenterology
DX: E86.0 Dehydration (principal); R11.0 Nausea; K51.80 Other ulcerative colitis without complications; Z88.6 Allergy status to analgesic agent; Z88.5 Allergy status to narcotic agent; Z88.3 Allergy status to other anti-infective agents; Z88.8 Allergy status to other drugs, medicaments and biological substances; Z91.89 Other specified personal risk factors, not elsewhere classified; Z91.041 Radiographic dye allergy status; Z91.040 Latex allergy status
CPT/HCPCS: 96360; J1642

== ENCOUNTER 2024-09-30 07:10 | Outpatient (CLI) | payer MEDICARE, OTHER ==
[~2024-09-30] VITALS: Ht 162.6 cm; Wt 85.0 kg
[~2024-09-30 07:10] MED LIST changes: +SODIUM CHLORIDE 0.9% INJ 10 ML SYR IV PRN
[2024-09-30] MEDS: NS (Normal Saline) 0.9% 1,000 ML IV ONE (07:13)
[2024-09-30] MEDS: SODIUM CHLORIDE 0.9% INJ 10 ML SYR IV SCH (07:14)
[2024-09-30 07:16] VITALS: BP 112/61; O2SAT 97
[2024-09-30 08:25] VITALS: BP 107/65; O2SAT 96
== END 2024-09-30 08:35 ==
LOC: M INFU 07:10
PROVIDERS: ATTEND Internal Medicine Gastroenterology
DX: E86.0 Dehydration (principal); R11.0 Nausea; K51.80 Other ulcerative colitis without complications; Z88.6 Allergy status to analgesic agent; Z88.5 Allergy status to narcotic agent; Z88.3 Allergy status to other anti-infective agents; Z91.89 Other specified personal risk factors, not elsewhere classified; Z91.040 Latex allergy status; Z91.041 Radiographic dye allergy status
CPT/HCPCS: 96360; J1642

== ENCOUNTER 2024-10-07 07:05 | Outpatient (CLI) | payer MEDICARE, OTHER ==
[~2024-10-07] VITALS: Ht 162.6 cm; Wt 65.0 kg
[2024-10-07] MEDS: SODIUM CHLORIDE 0.9% INJ 10 ML SYR IV SCH (07:11)
[2024-10-07] MEDS: NS (Normal Saline) 0.9% 1,000 ML IV ONE (07:11)
[2024-10-07 07:13] VITALS: BP 118/62; O2SAT 97
[2024-10-07 08:19] VITALS: BP 117/68; O2SAT 98
== END 2024-10-07 08:20 ==
LOC: M INFU 07:05
PROVIDERS: ATTEND Internal Medicine Gastroenterology
DX: E86.0 Dehydration (principal); R11.0 Nausea; K51.80 Other ulcerative colitis without complications; Z91.041 Radiographic dye allergy status; Z91.040 Latex allergy status; Z91.89 Other specified personal risk factors, not elsewhere classified; Z88.6 Allergy status to analgesic agent; Z88.5 Allergy status to narcotic agent; Z88.3 Allergy status to other anti-infective agents; Z88.8 Allergy status to other drugs, medicaments and biological substances
CPT/HCPCS: 96360; J1642

== ENCOUNTER → 2024-10-10 | Outpatient (CLI) | payer MEDICARE, OTHER ==
[~2024-10-10] MED LIST changes: -SODIUM CHLORIDE 0.9% INJ 10 ML SYR IV PRN
== END ==
LOC: M WUC 11:07
PROVIDERS: ATTEND Family Medicine
DX: M25.512 Pain in left shoulder (principal)

== ENCOUNTER 2024-10-14 07:00 | Outpatient (CLI) | payer MEDICARE, OTHER ==
[~2024-10-14 07:00] MED LIST changes: +SODIUM CHLORIDE 0.9% INJ 10 ML SYR IV PRN
[2024-10-14 07:05] VITALS: BP 135/72; O2SAT 98
[2024-10-14] MEDS: NS (Normal Saline) 0.9% 1,000 ML IV ONE (07:05)
[2024-10-14] MEDS: SODIUM CHLORIDE 0.9% INJ 10 ML SYR IV SCH (07:06)
[2024-10-14 08:10] VITALS: BP 131/68; O2SAT 100
[2024-10-14] MEDS ORDERED: SODIUM CHLORIDE 0.9% INJ 10 ML SYR IV SCH (09:00)
== END 2024-10-14 08:10 ==
LOC: M INFU 07:00
PROVIDERS: ATTEND Internal Medicine Gastroenterology
DX: E86.0 Dehydration (principal); Z91.041 Radiographic dye allergy status; Z91.040 Latex allergy status; Z91.89 Other specified personal risk factors, not elsewhere classified; Z88.5 Allergy status to narcotic agent; Z88.3 Allergy status to other anti-infective agents; Z88.8 Allergy status to other drugs, medicaments and biological substances
CPT/HCPCS: 96360; J1642

== ENCOUNTER 2024-10-16 07:00 | Outpatient (CLI) | payer MEDICARE, OTHER ==
[~2024-10-16 07:00] MED LIST changes: -SODIUM CHLORIDE 0.9% INJ 10 ML SYR IV PRN
[2024-10-16] MEDS: NS (Normal Saline) 0.9% 1,000 ML IV ONE (07:04)
[2024-10-16 07:05] VITALS: BP 111/58; O2SAT 97
[2024-10-16 08:05] VITALS: BP 118/74; O2SAT 98
[2024-10-16] MEDS ORDERED: SODIUM CHLORIDE 0.9% INJ 10 ML SYR IV PRN (08:05)
[2024-10-16] MEDS: SODIUM CHLORIDE 0.9% INJ 10 ML SYR IV SCH (08:06)
== END 2024-10-16 08:06 ==
LOC: M INFU 07:00
PROVIDERS: ATTEND Internal Medicine Gastroenterology
DX: E86.0 Dehydration (principal); R11.0 Nausea; K51.80 Other ulcerative colitis without complications; Z88.5 Allergy status to narcotic agent; Z88.3 Allergy status to other anti-infective agents; Z88.8 Allergy status to other drugs, medicaments and biological substances; Z88.6 Allergy status to analgesic agent; Z91.89 Other specified personal risk factors, not elsewhere classified; Z91.041 Radiographic dye allergy status; Z91.040 Latex allergy status
CPT/HCPCS: 96360; J1642

== ENCOUNTER 2024-10-21 07:50 | Outpatient (CLI) | payer MEDICARE, OTHER ==
[~2024-10-21 07:50] MED LIST changes: +NS (Normal Saline) 0.9% 1,000 ML IV ONE; +SODIUM CHLORIDE 0.9% INJ 10 ML SYR IV PRN
[2024-10-21] MEDS ORDERED: SODIUM CHLORIDE 0.9% INJ 10 ML SYR IV SCH (09:00)
== END 2024-10-21 11:00 ==
LOC: M INFU 07:50
PROVIDERS: ATTEND Internal Medicine Gastroenterology
DX: E86.0 Dehydration (principal); Z53.9 Procedure and treatment not carried out, unspecified reason

== ENCOUNTER 2024-10-23 06:52 | Outpatient (CLI) | payer MEDICARE, OTHER ==
[~2024-10-23 06:52] MED LIST changes: -NS (Normal Saline) 0.9% 1,000 ML IV ONE; -SODIUM CHLORIDE 0.9% INJ 10 ML SYR IV PRN
[2024-10-23 07:00] VITALS: BP 129/75; O2SAT 99
[2024-10-23] MEDS ORDERED: SODIUM CHLORIDE 0.9% INJ 10 ML SYR IV PRN (07:00)
[2024-10-23] MEDS: SODIUM CHLORIDE 0.9% INJ 10 ML SYR IV SCH (07:12)
[2024-10-23] MEDS: NS (Normal Saline) 0.9% 1,000 ML IV ONE (07:12)
[2024-10-23 12:10] VITALS: BP 117/71; O2SAT 97
== END 2024-10-23 08:15 ==
LOC: M INFU 06:52
PROVIDERS: ATTEND Internal Medicine Gastroenterology
DX: E86.0 Dehydration (principal); R11.0 Nausea; K51.80 Other ulcerative colitis without complications; Z91.041 Radiographic dye allergy status; Z91.040 Latex allergy status; Z91.89 Other specified personal risk factors, not elsewhere classified; Z88.3 Allergy status to other anti-infective agents; Z88.5 Allergy status to narcotic agent; Z88.8 Allergy status to other drugs, medicaments and biological substances
CPT/HCPCS: 96360; J1642

== ENCOUNTER 2024-10-28 07:00 | Outpatient (CLI) | payer MEDICARE, OTHER ==
[~2024-10-28 07:00] MED LIST changes: +SODIUM CHLORIDE 0.9% INJ 10 ML SYR IV PRN
[2024-10-28] MEDS: SODIUM CHLORIDE 0.9% INJ 10 ML SYR IV SCH (07:12)
[2024-10-28] MEDS: NS (Normal Saline) 0.9% 1,000 ML IV ONE (07:13)
[2024-10-28 07:18] VITALS: BP 130/77; O2SAT 96
[2024-10-28 07:31] LABS: HEMATOCRIT 39.5 % (36.0-47.0); HEMOGLOBIN 12.9 g/dl (12.0-15.5); MEAN CORPUSCULAR HEMOGLOBIN 30.1 pg (27.0-33.0); MEAN CORPUSCULAR HGB CONC 32.7 g/dl (32.0-36.5); MEAN CORPUSCULAR VOLUME 92.1 fl (80.0-96.0); PLATELET COUNT, AUTOMATED 316 10^3/uL (150-450); RED BLOOD COUNT 4.29 10^6/uL (4.00-5.40); WHITE BLOOD COUNT 13.7 10^3/uL (4.0-10.0)
[2024-10-28 08:17] LABS: C REACTIVE PROTEIN QUANTITATIV < 0.50 MG/DL (<1.0)
[2024-10-28 08:19] VITALS: BP 120/68; O2SAT 98
[2024-10-28 08:19] LABS: TOTAL 25(OH) VITAMIN D 27.3 NG/ML (20.0-100.0); VITAMIN B12 LEVEL 544 PG/ML (211-911)
[2024-10-28 08:21] LABS: ALBUMIN 3.9 G/DL (3.2-5.2); ALKALINE PHOSPHATASE 106 U/L (35-104); ALT/SGPT 21 U/L (7.0-40); AST/SGOT 11 U/L (<34); BILIRUBIN,TOTAL 0.3 MG/DL (0.3-1.2); BLOOD UREA NITROGEN 8 MG/DL (9-23); CALCIUM LEVEL 9.3 MG/DL (8.5-10.1); CARBON DIOXIDE LEVEL 23 MMOL/L (20-31); CHLORIDE LEVEL 108 MMOL/L (98-107); CHOLESTEROL LEVEL 303 MG/DL (<200); CREATININE FOR GFR 0.57 MG/DL (0.55-1.30); GLOMERULAR FILTRATION RATE > 60.0 (>58); GLUCOSE, FASTING 153 MG/DL (60-100); HDL CHOLESTEROL 37.4 MG/DL (>40); MAGNESIUM LEVEL 1.8 MG/DL (1.8-2.4); NON-HDL-C 265.6 MG/DL; SODIUM LEVEL 141 MMOL/L (136-145); TOTAL PROTEIN 7.3 G/DL (5.7-8.2); TRIGLYCERIDES LEVEL 692 MG/DL (<150)
== END 2024-10-28 08:20 ==
LOC: M INFU 07:00
PROVIDERS: ATTEND Internal Medicine Gastroenterology
DX: E86.0 Dehydration (principal); R11.2 Nausea with vomiting, unspecified; K86.1 Other chronic pancreatitis; E78.1 Pure hyperglyceridemia; K44.9 Diaphragmatic hernia without obstruction or gangrene; K21.9 Gastro-esophageal reflux disease without esophagitis; K22.2 Esophageal obstruction; K51.80 Other ulcerative colitis without complications; K91.850 Pouchitis
CPT/HCPCS: 36591; 80053; 80061; 82306; 82607; 83735; 85027; 86140; 96360; J1642

== ENCOUNTER 2024-10-30 06:56 | Outpatient (CLI) | payer MEDICARE, OTHER ==
[~2024-10-30] VITALS: Ht 162.6 cm; Wt 82.3 kg
[~2024-10-30 06:56] MED LIST changes: -SODIUM CHLORIDE 0.9% INJ 10 ML SYR IV PRN
[2024-10-30] MEDS ORDERED: SODIUM CHLORIDE 0.9% INJ 10 ML SYR IV PRN (07:00)
[2024-10-30] MEDS ORDERED: SODIUM CHLORIDE 0.9% INJ 10 ML SYR IV SCH (07:00)
[2024-10-30] MEDS: NS (Normal Saline) 0.9% 1,000 ML IV SCH (07:04)
[2024-10-30] MEDS: SODIUM CHLORIDE 0.9% INJ 10 ML SYR IV SCH (07:06)
[2024-10-30 07:11] VITALS: BP 133/74; O2SAT 97
[2024-10-30 08:14] VITALS: BP 116/73; O2SAT 99
== END 2024-10-30 08:15 ==
LOC: M INFU 06:56
PROVIDERS: ATTEND Internal Medicine Gastroenterology
DX: E86.0 Dehydration (principal); Z88.8 Allergy status to other drugs, medicaments and biological substances; Z88.6 Allergy status to analgesic agent; Z88.3 Allergy status to other anti-infective agents; Z91.041 Radiographic dye allergy status; Z91.040 Latex allergy status; Z91.89 Other specified personal risk factors, not elsewhere classified
CPT/HCPCS: 96360; J1642

== ENCOUNTER 2024-11-04 07:00 | Outpatient (CLI) | payer MEDICARE, OTHER ==
[~2024-11-04 07:00] MED LIST changes: +SODIUM CHLORIDE 0.9% INJ 10 ML SYR IV PRN; +SODIUM CHLORIDE 0.9% INJ 10 ML SYR IV SCH
[2024-11-04] MEDS: NS (Normal Saline) 0.9% 1,000 ML IV SCH (07:09)
[2024-11-04] MEDS: SODIUM CHLORIDE 0.9% INJ 10 ML SYR IV SCH (07:11)
[2024-11-04 08:24] VITALS: BP 123/58; O2SAT 98
== END 2024-11-04 08:25 ==
LOC: M INFU 07:00
PROVIDERS: ATTEND Internal Medicine Gastroenterology
DX: E86.0 Dehydration (principal); Z88.6 Allergy status to analgesic agent; Z88.5 Allergy status to narcotic agent; Z88.3 Allergy status to other anti-infective agents; Z88.8 Allergy status to other drugs, medicaments and biological substances; Z91.041 Radiographic dye allergy status; Z91.89 Other specified personal risk factors, not elsewhere classified
CPT/HCPCS: 96360; J1642

== ENCOUNTER 2024-11-11 06:55 | Outpatient (CLI) | payer MEDICARE, OTHER ==
[~2024-11-11] VITALS: Ht 162.6 cm; Wt 82.2 kg
[~2024-11-11 06:55] MED LIST changes: -SODIUM CHLORIDE 0.9% INJ 10 ML SYR IV PRN; -SODIUM CHLORIDE 0.9% INJ 10 ML SYR IV SCH
[2024-11-11] MEDS ORDERED: SODIUM CHLORIDE 0.9% INJ 10 ML SYR IV PRN (07:00)
[2024-11-11 07:04] VITALS: BP 134/76; O2SAT 97
[2024-11-11] MEDS: NS (Normal Saline) 0.9% 1,000 ML IV ONE (07:29)
[2024-11-11 08:20] VITALS: BP 118/73; O2SAT 100
[2024-11-11] MEDS: SODIUM CHLORIDE 0.9% INJ 10 ML SYR IV SCH (08:20)
== END 2024-11-11 08:30 ==
LOC: M INFU 06:55
PROVIDERS: ATTEND Internal Medicine Gastroenterology
DX: R11.0 Nausea (principal); E86.0 Dehydration; K51.80 Other ulcerative colitis without complications; Z88.6 Allergy status to analgesic agent; Z88.8 Allergy status to other drugs, medicaments and biological substances; Z91.040 Latex allergy status; Z88.5 Allergy status to narcotic agent; Z88.3 Allergy status to other anti-infective agents; Z91.041 Radiographic dye allergy status; Z91.89 Other specified personal risk factors, not elsewhere classified
CPT/HCPCS: 96360; J1642

== ENCOUNTER 2024-11-20 06:46 | Outpatient (CLI) | payer MEDICARE, OTHER ==
[2024-11-20] MEDS ORDERED: SODIUM CHLORIDE 0.9% INJ 10 ML SYR IV PRN (07:00)
[2024-11-20 07:05] VITALS: BP 129/62; O2SAT 98
[2024-11-20] MEDS: NS (Normal Saline) 0.9% 1,000 ML IV ONE (07:20)
[2024-11-20] MEDS: SODIUM CHLORIDE 0.9% INJ 10 ML SYR IV SCH (07:21)
[2024-11-20 08:30] VITALS: BP 100/57; O2SAT 97
== END 2024-11-20 08:33 ==
LOC: M INFU 06:46
PROVIDERS: ATTEND Internal Medicine Gastroenterology
DX: R11.0 Nausea (principal); E86.0 Dehydration; K51.80 Other ulcerative colitis without complications; Z91.041 Radiographic dye allergy status; Z91.89 Other specified personal risk factors, not elsewhere classified; Z88.6 Allergy status to analgesic agent; Z88.5 Allergy status to narcotic agent; Z88.3 Allergy status to other anti-infective agents; Z88.8 Allergy status to other drugs, medicaments and biological substances; Z91.040 Latex allergy status
CPT/HCPCS: 96360; J1642

== ENCOUNTER 2024-11-25 06:51 | Outpatient (CLI) | payer MEDICARE, OTHER ==
[2024-11-25] MEDS: SODIUM CHLORIDE 0.9% INJ 10 ML SYR IV SCH (06:58)
[2024-11-25] MEDS: NS (Normal Saline) 0.9% 1,000 ML IV ONE (06:58)
[2024-11-25] MEDS ORDERED: SODIUM CHLORIDE 0.9% INJ 10 ML SYR IV PRN (07:00)
[2024-11-25 07:05] VITALS: BP 126/69; O2SAT 98
[2024-11-25 08:13] VITALS: BP 102/54; O2SAT 97
== END 2024-11-25 08:15 ==
LOC: M INFU 06:51
PROVIDERS: ATTEND Internal Medicine Gastroenterology
DX: E86.0 Dehydration (principal); Z88.5 Allergy status to narcotic agent; Z88.6 Allergy status to analgesic agent; Z88.8 Allergy status to other drugs, medicaments and biological substances; Z91.041 Radiographic dye allergy status
CPT/HCPCS: 96360; J1642

== ENCOUNTER 2024-11-27 07:00 | Outpatient (CLI) | payer MEDICARE, OTHER ==
[~2024-11-27 07:00] MED LIST changes: +SODIUM CHLORIDE 0.9% INJ 10 ML SYR IV PRN
[2024-11-27 07:05] VITALS: BP 125/77; O2SAT 98
[2024-11-27] MEDS: SODIUM CHLORIDE 0.9% INJ 10 ML SYR IV SCH (07:11)
[2024-11-27] MEDS: NS (Normal Saline) 0.9% 1,000 ML IV ONE (07:11)
[2024-11-27 08:30] VITALS: BP 120/71; O2SAT 97
== END 2024-11-27 08:25 ==
LOC: M INFU 07:00
PROVIDERS: ATTEND Internal Medicine Gastroenterology
DX: E86.0 Dehydration (principal); Z88.6 Allergy status to analgesic agent; Z88.5 Allergy status to narcotic agent; Z88.3 Allergy status to other anti-infective agents; Z88.8 Allergy status to other drugs, medicaments and biological substances; Z91.89 Other specified personal risk factors, not elsewhere classified; Z91.040 Latex allergy status; Z91.041 Radiographic dye allergy status
CPT/HCPCS: 96360; J1642

== ENCOUNTER 2024-12-02 06:52 | Outpatient (CLI) | payer MEDICARE, OTHER ==
[~2024-12-02 06:52] MED LIST changes: -SODIUM CHLORIDE 0.9% INJ 10 ML SYR IV PRN
[2024-12-02] MEDS: NS (Normal Saline) 0.9% 1,000 ML IV ONE (07:05)
[2024-12-02] MEDS: SODIUM CHLORIDE 0.9% INJ 10 ML SYR IV PRN (07:06)
[2024-12-02 07:19] VITALS: BP 134/68; O2SAT 97
[2024-12-02 08:25] VITALS: BP 128/72; O2SAT 98
[2024-12-02] MEDS ORDERED: SODIUM CHLORIDE 0.9% INJ 10 ML SYR IV SCH (09:00)
== END 2024-12-02 08:15 ==
LOC: M INFU 06:52
PROVIDERS: ATTEND Internal Medicine Gastroenterology
DX: E86.0 Dehydration (principal); Z88.5 Allergy status to narcotic agent; Z88.3 Allergy status to other anti-infective agents; Z88.6 Allergy status to analgesic agent; Z91.89 Other specified personal risk factors, not elsewhere classified; Z91.040 Latex allergy status; Z91.041 Radiographic dye allergy status
CPT/HCPCS: 96360; J1642

== ENCOUNTER 2024-12-09 06:45 | Outpatient (CLI) | payer MEDICARE, OTHER ==
[2024-12-09] MEDS ORDERED: SODIUM CHLORIDE 0.9% INJ 10 ML SYR IV PRN (07:00)
[2024-12-09] MEDS: SODIUM CHLORIDE 0.9% INJ 10 ML SYR IV SCH (07:16)
[2024-12-09] MEDS: NS (Normal Saline) 0.9% 1,000 ML IV ONE (07:16)
[2024-12-09 07:21] VITALS: BP 128/78; O2SAT 97
== END 2024-12-09 07:57 | disposition home or self-care (01) ==
LOC: M INFU 06:45
PROVIDERS: ATTEND Internal Medicine Gastroenterology
DX: E86.0 Dehydration (principal); Z88.3 Allergy status to other anti-infective agents; Z88.5 Allergy status to narcotic agent; Z88.6 Allergy status to analgesic agent; Z88.8 Allergy status to other drugs, medicaments and biological substances; Z91.89 Other specified personal risk factors, not elsewhere classified; Z91.041 Radiographic dye allergy status; Z91.040 Latex allergy status
CPT/HCPCS: 96360; J1642

== ENCOUNTER 2024-12-16 07:00 | Outpatient (CLI) | payer MEDICARE, OTHER ==
[~2024-12-16] VITALS: Ht 162.6 cm; Wt 82.0 kg
[2024-12-16 07:00] VITALS: BP 117/75; O2SAT 98
[2024-12-16] MEDS: NS (Normal Saline) 0.9% 1,000 ML IV ONE (07:14)
[2024-12-16] MEDS ORDERED: SODIUM CHLORIDE 0.9% INJ 10 ML SYR IV PRN (07:15)
[2024-12-16] MEDS: SODIUM CHLORIDE 0.9% INJ 10 ML SYR IV SCH (07:15)
== END 2024-12-16 08:30 | disposition home or self-care (01) ==
LOC: M INFU 07:00
PROVIDERS: ATTEND Internal Medicine Gastroenterology
DX: E86.0 Dehydration (principal); Z88.3 Allergy status to other anti-infective agents; Z88.6 Allergy status to analgesic agent; Z88.5 Allergy status to narcotic agent; Z88.8 Allergy status to other drugs, medicaments and biological substances; Z91.89 Other specified personal risk factors, not elsewhere classified; Z91.040 Latex allergy status; Z91.041 Radiographic dye allergy status
CPT/HCPCS: 96360; J1642

== ENCOUNTER 2024-12-18 07:05 | Outpatient (CLI) | payer MEDICARE, OTHER ==
[~2024-12-18] VITALS: Ht 162.6 cm; Wt 82.0 kg
[~2024-12-18 07:05] MED LIST changes: +SODIUM CHLORIDE 0.9% INJ 10 ML SYR IV PRN; +SODIUM CHLORIDE 0.9% INJ 10 ML SYR IV SCH
[2024-12-18 07:10] VITALS: BP 131/72; O2SAT 97
[2024-12-18] MEDS: NS (Normal Saline) 0.9% 1,000 ML IV SCH (07:10)
[2024-12-18] MEDS: SODIUM CHLORIDE 0.9% INJ 10 ML SYR IV SCH (07:10)
[2024-12-18 08:30] VITALS: BP 128/88; O2SAT 98
== END 2024-12-18 08:30 | disposition home or self-care (01) ==
LOC: M INFU 07:05
PROVIDERS: ATTEND Internal Medicine Gastroenterology
DX: E86.0 Dehydration (principal); Z88.6 Allergy status to analgesic agent; Z88.5 Allergy status to narcotic agent; Z88.3 Allergy status to other anti-infective agents; Z88.8 Allergy status to other drugs, medicaments and biological substances; Z91.89 Other specified personal risk factors, not elsewhere classified; Z91.040 Latex allergy status; Z91.041 Radiographic dye allergy status
CPT/HCPCS: 96360; J1642

== ENCOUNTER → 2024-12-23 | Outpatient (CLI) | payer MEDICARE, OTHER ==
[~2024-12-23] VITALS: Ht 162.6 cm; Wt 81.3 kg
[~2024-12-23] MED LIST changes: -SODIUM CHLORIDE 0.9% INJ 10 ML SYR IV SCH
[2024-12-23] MEDS: NS (Normal Saline) 0.9% 1,000 ML IV ONE (07:00)
[2024-12-23] MEDS: SODIUM CHLORIDE 0.9% INJ 10 ML SYR IV SCH (07:00)
[2024-12-23 07:16] VITALS: BP 112/73; O2SAT 98
== END ==
LOC: M INFU 06:42
PROVIDERS: ATTEND Internal Medicine Gastroenterology
DX: E86.0 Dehydration (principal); Z91.041 Radiographic dye allergy status; Z91.040 Latex allergy status; Z91.89 Other specified personal risk factors, not elsewhere classified; Z88.6 Allergy status to analgesic agent; Z88.5 Allergy status to narcotic agent; Z88.3 Allergy status to other anti-infective agents; Z88.8 Allergy status to other drugs, medicaments and biological substances
CPT/HCPCS: 96360; J1642

== ENCOUNTER 2024-12-25 07:00 | Outpatient (CLI) | payer MEDICARE, OTHER ==
[~2024-12-25] VITALS: Ht 162.6 cm; Wt 81.3 kg
[2024-12-25] MEDS: NS (Normal Saline) 0.9% 1,000 ML IV ONE (07:08)
[2024-12-25] MEDS: SODIUM CHLORIDE 0.9% INJ 10 ML SYR IV SCH (07:09)
[2024-12-25 08:20] VITALS: BP 112/59; O2SAT 97
== END 2024-12-25 08:20 | disposition home or self-care (01) ==
LOC: M INFU 07:00
PROVIDERS: ATTEND Internal Medicine Gastroenterology
DX: E86.0 Dehydration (principal); Z91.041 Radiographic dye allergy status; Z91.89 Other specified personal risk factors, not elsewhere classified; Z91.040 Latex allergy status; Z88.3 Allergy status to other anti-infective agents; Z88.5 Allergy status to narcotic agent; Z88.8 Allergy status to other drugs, medicaments and biological substances; Z88.6 Allergy status to analgesic agent
CPT/HCPCS: 96360; J1642

== ENCOUNTER 2024-12-30 06:55 | Outpatient (CLI) | payer MEDICARE, OTHER ==
[2024-12-30] MEDS: SODIUM CHLORIDE 0.9% INJ 10 ML SYR IV SCH (06:51)
[2024-12-30] MEDS: NS (Normal Saline) 0.9% 1,000 ML IV ONE (06:51)
[~2024-12-30 06:55] MED LIST changes: -SODIUM CHLORIDE 0.9% INJ 10 ML SYR IV PRN
[2024-12-30 07:00] VITALS: BP 138/78; O2SAT 98
[2024-12-30] MEDS ORDERED: SODIUM CHLORIDE 0.9% INJ 10 ML SYR IV PRN (07:00)
[2024-12-30 08:12] VITALS: BP 135/70; O2SAT 97
== END 2024-12-30 08:15 | disposition home or self-care (01) ==
LOC: M INFU 06:55
PROVIDERS: ATTEND Internal Medicine Gastroenterology
DX: E86.0 Dehydration (principal); Z91.041 Radiographic dye allergy status; Z91.89 Other specified personal risk factors, not elsewhere classified; Z88.5 Allergy status to narcotic agent; Z88.3 Allergy status to other anti-infective agents; Z88.6 Allergy status to analgesic agent; Z88.8 Allergy status to other drugs, medicaments and biological substances
CPT/HCPCS: 96360; J1642

== ENCOUNTER 2025-01-01 06:46 | Outpatient (CLI) | payer MEDICARE, OTHER ==
[2025-01-01 07:05] VITALS: BP 110/64; O2SAT 99
[2025-01-01] MEDS: NS (Normal Saline) 0.9% 1,000 ML IV ONE (07:43)
[2025-01-01] MEDS: SODIUM CHLORIDE 0.9% INJ 10 ML SYR IV SCH (07:43)
[2025-01-01] MEDS ORDERED: SODIUM CHLORIDE 0.9% INJ 10 ML SYR IV PRN (07:45)
[2025-01-01 08:50] VITALS: BP 140/60; O2SAT 99
== END 2025-01-01 08:50 | disposition home or self-care (01) ==
LOC: M INFU 06:46
PROVIDERS: ATTEND Internal Medicine Gastroenterology
DX: E86.0 Dehydration (principal); Z91.041 Radiographic dye allergy status; Z91.89 Other specified personal risk factors, not elsewhere classified; Z91.040 Latex allergy status; Z88.5 Allergy status to narcotic agent; Z88.3 Allergy status to other anti-infective agents; Z88.8 Allergy status to other drugs, medicaments and biological substances
CPT/HCPCS: 96360; J1642

== ENCOUNTER 2025-01-06 07:00 | Outpatient (CLI) | payer MEDICARE, OTHER ==
[~2025-01-06] VITALS: Ht 162.6 cm; Wt 80.1 kg
[~2025-01-06 07:00] MED LIST changes: +SODIUM CHLORIDE 0.9% INJ 10 ML SYR IV PRN
[2025-01-06] MEDS: SODIUM CHLORIDE 0.9% INJ 10 ML SYR IV SCH (07:20)
[2025-01-06] MEDS: NS (Normal Saline) 0.9% 1,000 ML IV ONE (07:21)
[2025-01-06 07:22] VITALS: BP 126/91; O2SAT 96
[2025-01-06 08:25] VITALS: BP 117/59; O2SAT 98
== END 2025-01-08 08:45 | disposition home or self-care (01) ==
LOC: M INFU 07:00
PROVIDERS: ATTEND Internal Medicine Gastroenterology
DX: E86.0 Dehydration (principal); Z91.041 Radiographic dye allergy status; Z91.89 Other specified personal risk factors, not elsewhere classified; Z91.040 Latex allergy status; Z88.5 Allergy status to narcotic agent; Z88.3 Allergy status to other anti-infective agents; Z88.8 Allergy status to other drugs, medicaments and biological substances; R19.7 Diarrhea, unspecified; K91.850 Pouchitis
CPT/HCPCS: 83993; 96360; J1642

== ENCOUNTER → 2025-01-06 | Outpatient (REF) | payer MEDICARE, OTHER | LOC: M LAB REF 09:27 | PROVIDERS: ATTEND Internal Medicine Gastroenterology | DX: R19.7 Diarrhea, unspecified (principal); K91.850 Pouchitis ==

== ENCOUNTER 2025-02-24 07:37 | Outpatient (CLI) | payer MEDICARE, OTHER ==
[~2025-02-24] VITALS: Ht 162.6 cm; Wt 80.9 kg
[2025-02-24 06:50] VITALS: BP 123/65; O2SAT 98
[2025-02-24] MEDS: NS (Normal Saline) 0.9% 1,000 ML IV ONE (07:07)
[~2025-02-24 07:37] MED LIST changes: -SODIUM CHLORIDE 0.9% INJ 10 ML SYR IV PRN
[2025-02-24] MEDS ORDERED: HEPARIN LOCK FLUSH 100 UNITS/ML 3 ML SYRINGE IV PRN (08:00)
[2025-02-24] MEDS ORDERED: SODIUM CHLORIDE 0.9% INJ 10 ML SYR IV PRN (08:00)
[2025-02-24] MEDS: HEPARIN LOCK FLUSH 100 UNITS/ML 3 ML SYRINGE IV SCH (08:03)
[2025-02-24] MEDS: SODIUM CHLORIDE 0.9% INJ 10 ML SYR IV SCH (08:03)
[2025-02-24 08:15] VITALS: BP 110/65; O2SAT 98
== END 2025-02-24 08:15 ==
LOC: M INFU 07:37
PROVIDERS: ATTEND Internal Medicine Gastroenterology
DX: E86.0 Dehydration (principal); Z91.041 Radiographic dye allergy status; Z91.048 Other nonmedicinal substance allergy status; Z88.5 Allergy status to narcotic agent; Z88.6 Allergy status to analgesic agent; Z88.8 Allergy status to other drugs, medicaments and biological substances
CPT/HCPCS: 96360; J1642

== ENCOUNTER 2025-02-26 06:36 | Outpatient (CLI) | payer MEDICARE, OTHER ==
[~2025-02-26] VITALS: Ht 162.6 cm; Wt 79.5 kg
[2025-02-26 06:50] VITALS: BP 114/79; O2SAT 98
[2025-02-26] MEDS: NS (Normal Saline) 0.9% 1,000 ML IV ONE (07:05)
[2025-02-26 08:05] VITALS: BP 109/62; O2SAT 97
== END 2025-02-26 08:20 ==
LOC: M INFU 06:36
PROVIDERS: ATTEND Internal Medicine Gastroenterology
DX: E86.0 Dehydration (principal); Z91.041 Radiographic dye allergy status; Z91.89 Other specified personal risk factors, not elsewhere classified; Z91.040 Latex allergy status; Z88.8 Allergy status to other drugs, medicaments and biological substances; Z88.6 Allergy status to analgesic agent; Z88.5 Allergy status to narcotic agent; Z88.3 Allergy status to other anti-infective agents

== ENCOUNTER 2025-03-03 06:45 | Outpatient (CLI) | payer MEDICARE, OTHER ==
[2025-03-03] MEDS ORDERED: SODIUM CHLORIDE 0.9% INJ 10 ML SYR IV PRN (07:00)
[2025-03-03] MEDS ORDERED: HEPARIN LOCK FLUSH 100 UNITS/ML 3 ML SYRINGE IV PRN (07:00)
[2025-03-03] MEDS: NS (Normal Saline) 0.9% 1,000 ML IV ONE (07:15)
[2025-03-03] MEDS: SODIUM CHLORIDE 0.9% INJ 10 ML SYR IV SCH (07:15)
[2025-03-03] MEDS: HEPARIN LOCK FLUSH 100 UNITS/ML 3 ML SYRINGE IV SCH (07:15)
[2025-03-03 07:16] VITALS: BP 111/65; O2SAT 99
== END 2025-03-03 08:15 ==
LOC: M INFU 06:45
PROVIDERS: ATTEND Internal Medicine Gastroenterology
DX: E86.0 Dehydration (principal); Z88.5 Allergy status to narcotic agent; Z88.6 Allergy status to analgesic agent; Z88.8 Allergy status to other drugs, medicaments and biological substances; Z91.040 Latex allergy status; Z91.041 Radiographic dye allergy status
CPT/HCPCS: 96360; J1642

== ENCOUNTER 2025-03-05 06:37 | Outpatient (CLI) | payer MEDICARE, OTHER ==
[~2025-03-05] VITALS: Ht 162.6 cm; Wt 81.0 kg
[2025-03-05] MEDS: HEPARIN LOCK FLUSH 100 UNITS/ML 3 ML SYRINGE IV SCH (06:57)
[2025-03-05] MEDS: NS (Normal Saline) 0.9% 1,000 ML IV SCH (06:57)
[2025-03-05] MEDS: SODIUM CHLORIDE 0.9% INJ 10 ML SYR IV SCH (06:58)
[2025-03-05] MEDS ORDERED: HEPARIN LOCK FLUSH 100 UNITS/ML 3 ML SYRINGE IV PRN (07:00)
[2025-03-05] MEDS ORDERED: SODIUM CHLORIDE 0.9% INJ 10 ML SYR IV PRN (07:00)
[2025-03-05] MEDS ORDERED: SODIUM CHLORIDE 0.9% INJ 10 ML SYR IV SCH (07:00)
[2025-03-05] MEDS ORDERED: HEPARIN LOCK FLUSH 100 UNITS/ML 3 ML SYRINGE IV SCH (07:00)
[2025-03-05 07:03] VITALS: BP 108/60; O2SAT 98
[2025-03-05 08:10] VITALS: BP 104/82; O2SAT 98
== END 2025-03-05 08:50 ==
LOC: M INFU 06:37
PROVIDERS: ATTEND Internal Medicine Gastroenterology
DX: E86.0 Dehydration (principal); Z88.5 Allergy status to narcotic agent; Z88.6 Allergy status to analgesic agent; Z88.8 Allergy status to other drugs, medicaments and biological substances; Z91.040 Latex allergy status; Z91.041 Radiographic dye allergy status
CPT/HCPCS: 96360; 96361; J1642

== ENCOUNTER 2025-03-10 06:41 | Outpatient (CLI) | payer MEDICARE, OTHER ==
[~2025-03-10 06:41] MED LIST changes: +HEPARIN LOCK FLUSH 100 UNITS/ML 3 ML SYRINGE IV PRN; +SODIUM CHLORIDE 0.9% INJ 10 ML SYR IV PRN
[2025-03-10 07:00] VITALS: BP 107/56; O2SAT 98
[2025-03-10] MEDS: SODIUM CHLORIDE 0.9% INJ 10 ML SYR IV SCH (07:04)
[2025-03-10] MEDS: HEPARIN LOCK FLUSH 100 UNITS/ML 3 ML SYRINGE IV SCH (07:04)
[2025-03-10] MEDS: NS (Normal Saline) 0.9% 1,000 ML IV ONE (07:05)
[2025-03-10 08:03] VITALS: BP 94/55; O2SAT 97
== END 2025-03-10 08:05 | disposition home or self-care (01) ==
LOC: M INFU 06:41
PROVIDERS: ATTEND Internal Medicine Gastroenterology
DX: E86.0 Dehydration (principal); Z88.6 Allergy status to analgesic agent; Z88.5 Allergy status to narcotic agent; Z88.3 Allergy status to other anti-infective agents; Z88.8 Allergy status to other drugs, medicaments and biological substances; Z91.041 Radiographic dye allergy status; Z91.040 Latex allergy status; Z91.89 Other specified personal risk factors, not elsewhere classified
CPT/HCPCS: 96360; J1642

== ENCOUNTER 2025-03-12 06:43 | Outpatient (CLI) | payer MEDICARE, OTHER ==
[~2025-03-12 06:43] MED LIST changes: -HEPARIN LOCK FLUSH 100 UNITS/ML 3 ML SYRINGE IV PRN; +PROZ10CA11 PO; -PROZ10CA7 PO; -SODIUM CHLORIDE 0.9% INJ 10 ML SYR IV PRN
[2025-03-12] MEDS ORDERED: SODIUM CHLORIDE 0.9% INJ 10 ML SYR IV PRN (07:00)
[2025-03-12] MEDS ORDERED: HEPARIN LOCK FLUSH 100 UNITS/ML 3 ML SYRINGE IV PRN (07:00)
[2025-03-12] MEDS: NS (Normal Saline) 0.9% 1,000 ML IV ONE (07:06)
[2025-03-12] MEDS: HEPARIN LOCK FLUSH 100 UNITS/ML 3 ML SYRINGE IV SCH (07:06)
[2025-03-12] MEDS: SODIUM CHLORIDE 0.9% INJ 10 ML SYR IV SCH (07:07)
[2025-03-12 07:19] VITALS: BP 119/60; O2SAT 97
[2025-03-12 08:22] VITALS: BP 132/71; O2SAT 98
== END 2025-03-12 08:24 ==
LOC: M INFU 06:43
PROVIDERS: ATTEND Internal Medicine Gastroenterology
DX: E86.0 Dehydration (principal); Z91.041 Radiographic dye allergy status; Z91.040 Latex allergy status; Z91.89 Other specified personal risk factors, not elsewhere classified; Z88.6 Allergy status to analgesic agent; Z88.5 Allergy status to narcotic agent; Z88.3 Allergy status to other anti-infective agents; Z88.8 Allergy status to other drugs, medicaments and biological substances
CPT/HCPCS: 96360; J1642

== ENCOUNTER 2025-03-19 06:45 | Outpatient (CLI) | payer MEDICARE, OTHER ==
[~2025-03-19] VITALS: Ht 162.6 cm; Wt 81.4 kg
[2025-03-19] MEDS: NS (Normal Saline) 0.9% 1,000 ML IV ONE (07:03)
[2025-03-19] MEDS ORDERED: HEPARIN LOCK FLUSH 100 UNITS/ML 3 ML SYRINGE IV PRN (07:10)
[2025-03-19] MEDS ORDERED: SODIUM CHLORIDE 0.9% INJ 10 ML SYR IV PRN (07:10)
[2025-03-19 07:23] VITALS: BP 115/70; O2SAT 97
[2025-03-19] MEDS: SODIUM CHLORIDE 0.9% INJ 10 ML SYR IV SCH (08:13)
[2025-03-19] MEDS: HEPARIN LOCK FLUSH 100 UNITS/ML 3 ML SYRINGE IV SCH (08:13)
[2025-03-19 08:15] VITALS: BP 118/60; O2SAT 97
[2025-03-19] MEDS ORDERED: SODIUM CHLORIDE 0.9% INJ 10 ML SYR IV SCH (09:00)
[2025-03-19] MEDS ORDERED: HEPARIN LOCK FLUSH 100 UNITS/ML 3 ML SYRINGE IV SCH (09:00)
== END 2025-03-19 08:18 | disposition home or self-care (01) ==
LOC: M INFU 06:45
PROVIDERS: ATTEND Internal Medicine Gastroenterology
DX: E86.0 Dehydration (principal); Z88.6 Allergy status to analgesic agent; Z88.5 Allergy status to narcotic agent; Z88.3 Allergy status to other anti-infective agents; Z88.8 Allergy status to other drugs, medicaments and biological substances; Z91.041 Radiographic dye allergy status; Z91.040 Latex allergy status; Z91.89 Other specified personal risk factors, not elsewhere classified
CPT/HCPCS: 96360; J1642

== ENCOUNTER → 2025-03-23 | Outpatient (CLI) | payer MEDICARE, OTHER ==
[2025-03-23 12:22] LABS: AMORPHOUS SEDIMENT SMALL (NEGATIVE); APPEARANCE, URINE TURBID (CLEAR); BACTERIA, URINE AUTO NEGATIVE (NEGATIVE); BILIRUBIN, URINE AUTO NEGATIVE (NEGATIVE); BLOOD, URINE BLOOD NEGATIVE (NEGATIVE); GLUCOSE, URINE (UA) AUTO NEGATIVE (NEGATIVE); KETONE, URINE AUTO TRACE mg/dL (NEGATIVE); LEUKOCYTE ESTERASE, URINE AUTO TRACE (NEGATIVE); MUCUS, URINE SMALL (NEGATIVE); NITRITE, URINE AUTO NEGATIVE (NEGATIVE); PROTEIN, URINE AUTO NEGATIVE (NEGATIVE); RBC, URINE AUTO 0 /HPF (0-3); SPECIFIC GRAVITY URINE AUTO 1.028 (1.002-1.035); SQUAMOUS EPITHELIAL CELL UR AU 2 /HPF (0-6); UROBILINOGEN, URINE AUTO 2.0 mg/dL (0.0-2.0); WBC, URINE AUTO 0 /HPF (0-3)
[2025-03-23 12:23] LABS: BASO # 0.1 10^3/uL (0.0-0.2); BASO % 0.6 % (0.0-1.0); EOS # 0.1 10^3/uL (0.0-0.5); EOS % 0.4 % (0.0-3.0); LYMPH # 2.9 10^3/uL (1.5-5.0); LYMPH % 22.5 % (24.0-44.0); MONO # 0.7 10^3/uL (0.0-0.8); MONO % 5.3 % (2.0-8.0); NEUTROPHILS # 9.2 10^3/uL (1.5-8.5); NEUTROPHILS % 70.9 % (36.0-66.0); PLATELET COUNT, AUTOMATED 397 10^3/uL (150-450)
[2025-03-23 12:31] LABS: ALT/SGPT 21 U/L (7.0-40); AST/SGOT 17 U/L (<34); CALCIUM LEVEL 9.7 MG/DL (8.5-10.1); CARBON DIOXIDE LEVEL 27 MMOL/L (20-31); CHLORIDE LEVEL 103 MMOL/L (98-107); CHOLESTEROL LEVEL 269 MG/DL (<200); CHOLESTEROL RISK RATIO 6.31 (<5); CREATININE FOR GFR 0.64 MG/DL (0.55-1.30); GLOMERULAR FILTRATION RATE > 90.0 (>58); NON-HDL-C 226.4 MG/DL; POTASSIUM SERUM 4.0 MMOL/L (3.5-5.1); SODIUM LEVEL 140 MMOL/L (136-145); TRIGLYCERIDES LEVEL 467 MG/DL (<150)
== END ==
LOC: M WUC 09:13
PROVIDERS: ATTEND Family Medicine
DX: Z51.81 Encounter for therapeutic drug level monitoring (principal); Z79.899 Other long term (current) drug therapy; M79.672 Pain in left foot

== ENCOUNTER 2025-03-24 06:48 | Outpatient (CLI) | payer MEDICARE, OTHER ==
[2025-03-24] MEDS ORDERED: HEPARIN LOCK FLUSH 100 UNITS/ML 3 ML SYRINGE IV PRN (06:50)
[2025-03-24] MEDS ORDERED: SODIUM CHLORIDE 0.9% INJ 10 ML SYR IV PRN (06:50)
[2025-03-24 07:05] VITALS: BP 104/60; O2SAT 98
[2025-03-24] MEDS: HEPARIN LOCK FLUSH 100 UNITS/ML 3 ML SYRINGE IV SCH (07:07)
[2025-03-24] MEDS: NS (Normal Saline) 0.9% 1,000 ML IV ONE (07:08)
[2025-03-24] MEDS: SODIUM CHLORIDE 0.9% INJ 10 ML SYR IV SCH (07:08)
== END 2025-03-24 08:20 ==
LOC: M INFU 06:48
PROVIDERS: ATTEND Internal Medicine Gastroenterology
DX: E86.0 Dehydration (principal); Z88.8 Allergy status to other drugs, medicaments and biological substances; Z88.6 Allergy status to analgesic agent; Z88.5 Allergy status to narcotic agent; Z88.3 Allergy status to other anti-infective agents; Z91.89 Other specified personal risk factors, not elsewhere classified; Z91.041 Radiographic dye allergy status; Z91.040 Latex allergy status
CPT/HCPCS: 96360; J1642

== ENCOUNTER 2025-03-26 06:42 | Outpatient (CLI) | payer MEDICARE, OTHER ==
[~2025-03-26 06:42] MED LIST changes: +HEPARIN LOCK FLUSH 100 UNITS/ML 3 ML SYRINGE IV PRN; +SODIUM CHLORIDE 0.9% INJ 10 ML SYR IV PRN
[2025-03-26 07:00] VITALS: BP 148/60; O2SAT 98
[2025-03-26] MEDS: HEPARIN LOCK FLUSH 100 UNITS/ML 3 ML SYRINGE IV SCH (07:12)
[2025-03-26] MEDS: SODIUM CHLORIDE 0.9% INJ 10 ML SYR IV SCH (07:12)
[2025-03-26] MEDS: NS (Normal Saline) 0.9% 1,000 ML IV ONE (07:12)
== END 2025-03-26 08:25 ==
LOC: M INFU 06:42
PROVIDERS: ATTEND Internal Medicine Gastroenterology
DX: E86.0 Dehydration (principal); Z88.5 Allergy status to narcotic agent; Z88.8 Allergy status to other drugs, medicaments and biological substances; Z88.6 Allergy status to analgesic agent; Z91.89 Other specified personal risk factors, not elsewhere classified; Z91.041 Radiographic dye allergy status; Z91.040 Latex allergy status
CPT/HCPCS: 96360; J1642

== ENCOUNTER 2025-03-31 07:00 | Outpatient (CLI) | payer MEDICARE, OTHER ==
[~2025-03-31] VITALS: Ht 165.1 cm; Wt 81.3 kg
[2025-03-31 07:00] VITALS: BP 140/83; O2SAT 99
[2025-03-31] MEDS: NS (Normal Saline) 0.9% 1,000 ML IV ONE (07:00)
[2025-03-31 08:05] VITALS: BP 129/82; O2SAT 100
[2025-03-31] MEDS: HEPARIN LOCK FLUSH 100 UNITS/ML 3 ML SYRINGE IV SCH (08:22)
[2025-03-31] MEDS: SODIUM CHLORIDE 0.9% INJ 10 ML SYR IV SCH (08:22)
== END 2025-03-31 08:20 ==
LOC: M INFU 07:00
PROVIDERS: ATTEND Internal Medicine Gastroenterology
DX: E86.0 Dehydration (principal); Z88.6 Allergy status to analgesic agent; Z88.3 Allergy status to other anti-infective agents; Z88.5 Allergy status to narcotic agent; Z88.8 Allergy status to other drugs, medicaments and biological substances; Z91.040 Latex allergy status; Z91.041 Radiographic dye allergy status; Z91.89 Other specified personal risk factors, not elsewhere classified
CPT/HCPCS: 96360; J1642

== ENCOUNTER 2025-04-02 06:43 | Outpatient (CLI) | payer MEDICARE, OTHER ==
[~2025-04-02] VITALS: Ht 162.6 cm; Wt 80.5 kg
[~2025-04-02 06:43] MED LIST changes: -HEPARIN LOCK FLUSH 100 UNITS/ML 3 ML SYRINGE IV PRN; -SODIUM CHLORIDE 0.9% INJ 10 ML SYR IV PRN
[2025-04-02 06:45] VITALS: BP 124/68; O2SAT 98
[2025-04-02] MEDS: NS (Normal Saline) 0.9% 1,000 ML IV ONE (07:03)
[2025-04-02] MEDS: SODIUM CHLORIDE 0.9% INJ 10 ML SYR IV PRN (07:04)
[2025-04-02] MEDS: HEPARIN LOCK FLUSH 100 UNITS/ML 3 ML SYRINGE IV PRN (07:04)
[2025-04-02 08:14] VITALS: BP 105/56; O2SAT 96
[2025-04-02] MEDS ORDERED: SODIUM CHLORIDE 0.9% INJ 10 ML SYR IV SCH (09:00)
[2025-04-02] MEDS ORDERED: HEPARIN LOCK FLUSH 100 UNITS/ML 3 ML SYRINGE IV SCH (09:00)
== END 2025-04-02 08:15 ==
LOC: M INFU 06:43
PROVIDERS: ATTEND Internal Medicine Gastroenterology
DX: E86.0 Dehydration (principal); Z88.6 Allergy status to analgesic agent; Z88.5 Allergy status to narcotic agent; Z88.3 Allergy status to other anti-infective agents; Z91.89 Other specified personal risk factors, not elsewhere classified; Z91.041 Radiographic dye allergy status; Z91.040 Latex allergy status
CPT/HCPCS: 96360; J1642

== ENCOUNTER → 2025-04-09 | Outpatient (CLI) | payer MEDICARE, OTHER ==
[~2025-04-09] VITALS: Ht 162.6 cm; Wt 80.9 kg
[~2025-04-09] MED LIST changes: +HEPARIN LOCK FLUSH 100 UNITS/ML 3 ML SYRINGE IV PRN; +SODIUM CHLORIDE 0.9% INJ 10 ML SYR IV PRN
[2025-04-09] MEDS: SODIUM CHLORIDE 0.9% INJ 10 ML SYR IV SCH (06:57)
[2025-04-09] MEDS: NS (Normal Saline) 0.9% 1,000 ML IV ONE (06:57)
[2025-04-09] MEDS: HEPARIN LOCK FLUSH 100 UNITS/ML 3 ML SYRINGE IV SCH (06:57)
[2025-04-09 06:58] VITALS: BP 111/67; O2SAT 99
[2025-04-09 07:45] VITALS: BP 128/69; O2SAT 98
== END ==
LOC: M INFU 16:42
PROVIDERS: ATTEND Internal Medicine Gastroenterology
DX: E86.0 Dehydration (principal); Z88.8 Allergy status to other drugs, medicaments and biological substances; Z88.6 Allergy status to analgesic agent; Z88.5 Allergy status to narcotic agent; Z88.3 Allergy status to other anti-infective agents; Z91.89 Other specified personal risk factors, not elsewhere classified; Z91.040 Latex allergy status; Z91.041 Radiographic dye allergy status
CPT/HCPCS: 96360; J1642

== ENCOUNTER 2025-04-23 06:53 | Outpatient (CLI) | payer MEDICARE, OTHER ==
[~2025-04-23] VITALS: Ht 162.6 cm; Wt 80.0 kg
[~2025-04-23 06:53] MED LIST changes: -HEPARIN LOCK FLUSH 100 UNITS/ML 3 ML SYRINGE IV PRN; -SODIUM CHLORIDE 0.9% INJ 10 ML SYR IV PRN
[2025-04-23] MEDS: NS (Normal Saline) 0.9% 1,000 ML IV SCH (07:10)
[2025-04-23 07:13] VITALS: BP 110/58; O2SAT 97
[2025-04-23] MEDS ORDERED: HEPARIN LOCK FLUSH 100 UNITS/ML 3 ML SYRINGE IV PRN (08:20)
[2025-04-23] MEDS ORDERED: SODIUM CHLORIDE 0.9% INJ 10 ML SYR IV PRN (08:20)
[2025-04-23] MEDS: HEPARIN LOCK FLUSH 100 UNITS/ML 3 ML SYRINGE IV SCH (08:26)
[2025-04-23] MEDS: SODIUM CHLORIDE 0.9% INJ 10 ML SYR IV SCH (08:26)
[2025-04-23 08:30] VITALS: BP 105/65; O2SAT 97
[2025-04-23] MEDS ORDERED: SODIUM CHLORIDE 0.9% INJ 10 ML SYR IV SCH (09:00)
[2025-04-23] MEDS ORDERED: HEPARIN LOCK FLUSH 100 UNITS/ML 3 ML SYRINGE IV SCH (09:00)
== END 2025-04-23 08:30 | disposition home or self-care (01) ==
LOC: M INFU 06:53
PROVIDERS: ATTEND Internal Medicine Gastroenterology
DX: E86.0 Dehydration (principal); Z88.5 Allergy status to narcotic agent; Z88.3 Allergy status to other anti-infective agents; Z88.6 Allergy status to analgesic agent; Z88.8 Allergy status to other drugs, medicaments and biological substances; Z91.040 Latex allergy status; Z91.041 Radiographic dye allergy status; Z91.89 Other specified personal risk factors, not elsewhere classified
CPT/HCPCS: 96360; J1642

== ENCOUNTER 2025-04-28 06:46 | Outpatient (CLI) | payer MEDICARE, OTHER ==
[~2025-04-28] VITALS: Ht 162.6 cm; Wt 80.9 kg
[2025-04-28] MEDS: SODIUM CHLORIDE 0.9% INJ 10 ML SYR IV SCH (06:55)
[2025-04-28] MEDS: HEPARIN LOCK FLUSH 100 UNITS/ML 3 ML SYRINGE IV SCH (06:55)
[2025-04-28] MEDS: NS (Normal Saline) 0.9% 1,000 ML IV ONE (06:56)
[2025-04-28 07:00] VITALS: BP 127/69; O2SAT 99
[2025-04-28] MEDS ORDERED: SODIUM CHLORIDE 0.9% INJ 10 ML SYR IV PRN (07:00)
[2025-04-28] MEDS ORDERED: HEPARIN LOCK FLUSH 100 UNITS/ML 3 ML SYRINGE IV PRN (07:00)
== END 2025-04-28 08:00 ==
LOC: M INFU 06:46
PROVIDERS: ATTEND Internal Medicine Gastroenterology
DX: E86.0 Dehydration (principal); Z91.041 Radiographic dye allergy status; Z91.89 Other specified personal risk factors, not elsewhere classified; Z91.040 Latex allergy status; Z88.3 Allergy status to other anti-infective agents; Z88.5 Allergy status to narcotic agent; Z88.8 Allergy status to other drugs, medicaments and biological substances; Z88.6 Allergy status to analgesic agent
CPT/HCPCS: 96360; J1642

== ENCOUNTER 2025-05-07 06:43 | Outpatient (CLI) | payer MEDICARE, OTHER ==
[2025-05-07] MEDS ORDERED: SODIUM CHLORIDE 0.9% INJ 10 ML SYR IV PRN (07:00)
[2025-05-07] MEDS ORDERED: HEPARIN LOCK FLUSH 100 UNITS/ML 3 ML SYRINGE IV PRN (07:00)
[2025-05-07] MEDS: NS (Normal Saline) 0.9% 1,000 ML IV ONE (07:13)
[2025-05-07] MEDS: HEPARIN LOCK FLUSH 100 UNITS/ML 3 ML SYRINGE IV SCH (07:14)
[2025-05-07] MEDS: SODIUM CHLORIDE 0.9% INJ 10 ML SYR IV SCH (07:14)
[2025-05-07 07:15] VITALS: BP 115/64; O2SAT 97
[2025-05-07 08:25] VITALS: BP 112/66; O2SAT 98
== END 2025-05-07 08:30 | disposition home or self-care (01) ==
LOC: M INFU 06:43
PROVIDERS: ATTEND Internal Medicine Gastroenterology
DX: E86.0 Dehydration (principal); Z88.8 Allergy status to other drugs, medicaments and biological substances; Z88.6 Allergy status to analgesic agent; Z88.5 Allergy status to narcotic agent; Z91.041 Radiographic dye allergy status; Z91.048 Other nonmedicinal substance allergy status
CPT/HCPCS: 96360; J1642

== ENCOUNTER → 2025-05-11 | Outpatient (CLI) | payer MEDICARE, OTHER ==
[2025-05-11 06:52] LABS: PLATELET COUNT, AUTOMATED 331 10^3/uL (150-450)
[2025-05-11 07:03] LABS: INR 0.89
== END ==
LOC: M LAB 06:30
PROVIDERS: ATTEND Physician Assistant
DX: M96.1 Postlaminectomy syndrome, not elsewhere classified (principal)

== ENCOUNTER → 2025-05-15 | Outpatient (CLI) | payer MEDICARE, OTHER | LOC: M WHC 08:23 | PROVIDERS: ATTEND Internal Medicine Gastroenterology | DX: R94.5 Abnormal results of liver function studies (principal); E86.0 Dehydration; R10.84 Generalized abdominal pain; K51.20 Ulcerative (chronic) proctitis without complications; R16.0 Hepatomegaly, not elsewhere classified; Z13.820 Encounter for screening for osteoporosis ==

== ENCOUNTER 2025-05-19 06:48 | Outpatient (CLI) | payer MEDICARE, OTHER ==
[~2025-05-19] VITALS: Ht 162.6 cm; Wt 79.0 kg
[2025-05-19 06:55] VITALS: BP 104/59; O2SAT 98
[2025-05-19] MEDS ORDERED: SODIUM CHLORIDE 0.9% INJ 10 ML SYR IV PRN (07:00)
[2025-05-19] MEDS ORDERED: HEPARIN LOCK FLUSH 100 UNITS/ML 3 ML SYRINGE IV PRN (07:00)
[2025-05-19] MEDS: NS (Normal Saline) 0.9% 1,000 ML IV ONE (07:08)
[2025-05-19] MEDS ORDERED: HEPARIN LOCK FLUSH 100 UNITS/ML 3 ML SYRINGE IV SCH (09:00)
[2025-05-19] MEDS ORDERED: SODIUM CHLORIDE 0.9% INJ 10 ML SYR IV SCH (09:00)
== END 2025-05-19 08:00 ==
LOC: M INFU 06:48
PROVIDERS: ATTEND Internal Medicine Gastroenterology
DX: E86.0 Dehydration (principal); Z88.6 Allergy status to analgesic agent; Z88.8 Allergy status to other drugs, medicaments and biological substances; Z88.3 Allergy status to other anti-infective agents; Z88.5 Allergy status to narcotic agent; Z91.89 Other specified personal risk factors, not elsewhere classified; Z91.041 Radiographic dye allergy status; Z91.040 Latex allergy status
CPT/HCPCS: 96360; J1642

== ENCOUNTER 2025-05-26 08:13 | Outpatient (CLI) | payer MEDICARE, OTHER ==
[~2025-05-26] VITALS: Ht 162.6 cm; Wt 70.5 kg
[2025-05-26] MEDS: NS (Normal Saline) 0.9% 1,000 ML IV ONE (07:13)
[2025-05-26] MEDS: HEPARIN LOCK FLUSH 100 UNITS/ML 3 ML SYRINGE IV SCH (07:14)
[2025-05-26] MEDS: SODIUM CHLORIDE 0.9% INJ 10 ML SYR IV SCH (07:14)
[2025-05-26 07:28] VITALS: BP 124/75; O2SAT 96
[2025-05-26 08:10] VITALS: BP 136/72; O2SAT 96
[~2025-05-26 08:13] MED LIST changes: +HEPARIN LOCK FLUSH 100 UNITS/ML 3 ML SYRINGE IV PRN; +SODIUM CHLORIDE 0.9% INJ 10 ML SYR IV PRN
== END 2025-05-26 08:15 ==
LOC: M INFU 08:13
PROVIDERS: ATTEND Internal Medicine Gastroenterology
DX: E86.0 Dehydration (principal); Z88.5 Allergy status to narcotic agent; Z88.3 Allergy status to other anti-infective agents; Z88.8 Allergy status to other drugs, medicaments and biological substances; Z91.89 Other specified personal risk factors, not elsewhere classified; Z91.041 Radiographic dye allergy status; Z91.040 Latex allergy status
CPT/HCPCS: 96360; J1642

== ENCOUNTER 2025-06-04 06:50 | Outpatient (CLI) | payer MEDICARE, OTHER ==
[~2025-06-04 06:50] MED LIST changes: -HEPARIN LOCK FLUSH 100 UNITS/ML 3 ML SYRINGE IV PRN; -SODIUM CHLORIDE 0.9% INJ 10 ML SYR IV PRN
[2025-06-04 06:55] VITALS: BP 118/65; O2SAT 99
[2025-06-04] MEDS: NS (Normal Saline) 0.9% 1,000 ML IV ONE (06:55)
[2025-06-04] MEDS: SODIUM CHLORIDE 0.9% INJ 10 ML SYR IV PRN (08:07)
[2025-06-04] MEDS: HEPARIN LOCK FLUSH 100 UNITS/ML 3 ML SYRINGE IV PRN (08:07)
[2025-06-04 08:12] VITALS: BP 128/72; O2SAT 98
[2025-06-04] MEDS ORDERED: SODIUM CHLORIDE 0.9% INJ 10 ML SYR IV SCH (09:00)
[2025-06-04] MEDS ORDERED: HEPARIN LOCK FLUSH 100 UNITS/ML 3 ML SYRINGE IV SCH (09:00)
== END 2025-06-04 08:12 ==
LOC: M INFU 06:50
PROVIDERS: ATTEND Internal Medicine Gastroenterology
DX: E86.0 Dehydration (principal); Z91.041 Radiographic dye allergy status; Z91.040 Latex allergy status; Z91.89 Other specified personal risk factors, not elsewhere classified; Z88.8 Allergy status to other drugs, medicaments and biological substances; Z88.6 Allergy status to analgesic agent; Z88.5 Allergy status to narcotic agent; Z88.3 Allergy status to other anti-infective agents
CPT/HCPCS: 96360; J1642

== ENCOUNTER 2025-06-11 06:37 | Outpatient (CLI) | payer MEDICARE, OTHER ==
[~2025-06-11] VITALS: Ht 162.6 cm; Wt 80.0 kg
[~2025-06-11 06:37] MED LIST changes: +HEPARIN LOCK FLUSH 100 UNITS/ML 3 ML SYRINGE IV PRN; +SODIUM CHLORIDE 0.9% INJ 10 ML SYR IV PRN
[2025-06-11] MEDS: NS (Normal Saline) 0.9% 1,000 ML IV ONE (06:53)
[2025-06-11] MEDS: HEPARIN LOCK FLUSH 100 UNITS/ML 3 ML SYRINGE IV SCH (06:54)
[2025-06-11 07:01] VITALS: BP 119/67; O2SAT 98
[2025-06-11 08:03] VITALS: BP 112/66; O2SAT 96
[2025-06-11] MEDS ORDERED: SODIUM CHLORIDE 0.9% INJ 10 ML SYR IV SCH (09:00)
== END 2025-06-11 08:05 | disposition home or self-care (01) ==
LOC: M INFU 06:37
PROVIDERS: ATTEND Internal Medicine Gastroenterology
DX: E86.0 Dehydration (principal); Z88.6 Allergy status to analgesic agent; Z88.5 Allergy status to narcotic agent; Z88.3 Allergy status to other anti-infective agents; Z88.8 Allergy status to other drugs, medicaments and biological substances; Z91.041 Radiographic dye allergy status; Z91.89 Other specified personal risk factors, not elsewhere classified
CPT/HCPCS: 96360; J1642

== ENCOUNTER 2025-06-18 06:39 | Outpatient (CLI) | payer MEDICARE, OTHER ==
[~2025-06-18] VITALS: Ht 162.6 cm; Wt 70.0 kg
[~2025-06-18 06:39] MED LIST changes: -HEPARIN LOCK FLUSH 100 UNITS/ML 3 ML SYRINGE IV PRN; -SODIUM CHLORIDE 0.9% INJ 10 ML SYR IV PRN
[2025-06-18] MEDS: NS (Normal Saline) 0.9% 1,000 ML IV ONE (06:55)
[2025-06-18] MEDS: SODIUM CHLORIDE 0.9% INJ 10 ML SYR IV SCH (06:55)
[2025-06-18] MEDS: HEPARIN LOCK FLUSH 100 UNITS/ML 3 ML SYRINGE IV SCH (06:55)
[2025-06-18 06:59] VITALS: BP 98/53; O2SAT 97
[2025-06-18] MEDS ORDERED: SODIUM CHLORIDE 0.9% INJ 10 ML SYR IV PRN (07:00)
[2025-06-18] MEDS ORDERED: HEPARIN LOCK FLUSH 100 UNITS/ML 3 ML SYRINGE IV PRN (07:00)
[2025-06-18 07:56] VITALS: BP 100/55; O2SAT 97
[2025-06-18] MEDS ORDERED: HEPARIN LOCK FLUSH 100 UNITS/ML 3 ML SYRINGE IV SCH (09:00)
[2025-06-18] MEDS ORDERED: SODIUM CHLORIDE 0.9% INJ 10 ML SYR IV SCH (09:00)
== END 2025-06-18 07:57 ==
LOC: M INFU 06:39
PROVIDERS: ATTEND Internal Medicine Gastroenterology
DX: E86.0 Dehydration (principal); Z88.5 Allergy status to narcotic agent; Z88.3 Allergy status to other anti-infective agents; Z88.6 Allergy status to analgesic agent; Z88.8 Allergy status to other drugs, medicaments and biological substances; Z91.89 Other specified personal risk factors, not elsewhere classified; Z91.041 Radiographic dye allergy status; Z91.040 Latex allergy status
CPT/HCPCS: 96360; J1642

== ENCOUNTER → 2025-06-22 | Outpatient (REF) | payer MEDICARE, OTHER ==
[2025-06-22 15:08] LABS: Trichomonas vaginalis (AMP) NOT DETECTED (NEGATIVE)
[2025-06-22 15:31] LABS: GC DNA AMPLIFICATION NEGATIVE (NEGATIVE)
[2025-06-24 16:43] LABS: HPV APTIMA Not Detected (Not Detected)
== END ==
LOC: M PLALAB 10:54
PROVIDERS: ATTEND Advanced Practice Midwife
DX: Z12.4 Encounter for screening for malignant neoplasm of cervix (principal); Z11.3 Encounter for screening for infections with a predominantly sexual mode of transmission; R87.610 Atypical squamous cells of undetermined significance on cytologic smear of cervix (ASC-US); Z77.9 Other contact with and (suspected) exposures hazardous to health
CPT/HCPCS: 87624; 87661; 87810; 87850; G0123

== ENCOUNTER 2025-06-23 06:49 | Outpatient (CLI) | payer MEDICARE, OTHER ==
[2025-06-23] MEDS ORDERED: HEPARIN LOCK FLUSH 100 UNITS/ML 3 ML SYRINGE IV PRN (07:00)
[2025-06-23] MEDS ORDERED: SODIUM CHLORIDE 0.9% INJ 10 ML SYR IV PRN (07:00)
[2025-06-23] MEDS: HEPARIN LOCK FLUSH 100 UNITS/ML 3 ML SYRINGE IV SCH ×2 (07:13→07:15)
[2025-06-23] MEDS: NS (Normal Saline) 0.9% 1,000 ML IV SCH (07:14)
[2025-06-23] MEDS: SODIUM CHLORIDE 0.9% INJ 10 ML SYR IV SCH ×2 (07:14→07:15)
[2025-06-23 07:23] VITALS: BP 115/62; O2SAT 97
[2025-06-23 08:20] VITALS: BP 140/84; O2SAT 99
== END 2025-06-23 08:25 | disposition home or self-care (01) ==
LOC: M INFU 06:49
PROVIDERS: ATTEND Internal Medicine Gastroenterology
DX: E86.0 Dehydration (principal); Z91.041 Radiographic dye allergy status; Z91.89 Other specified personal risk factors, not elsewhere classified; Z88.6 Allergy status to analgesic agent; Z91.040 Latex allergy status; Z88.5 Allergy status to narcotic agent; Z88.3 Allergy status to other anti-infective agents; Z88.8 Allergy status to other drugs, medicaments and biological substances

== ENCOUNTER → 2025-06-23 | Outpatient (CLI) | payer MEDICARE, OTHER ==
[2025-06-23 08:24] LABS: HEPATITIS B SURFACE ANTIBODY POSITIVE (POSITIVE)
[2025-06-23 08:51] LABS: HIV 1&2 SCREEN NEGATIVE (NEGATIVE)
[2025-06-23 08:59] LABS: HEPATITIS C VIRUS ABY INDEX < 0.02 INDEX (<0.8)
== END ==
LOC: M LAB 06:46
PROVIDERS: ATTEND Advanced Practice Midwife
DX: Z11.3 Encounter for screening for infections with a predominantly sexual mode of transmission (principal)
CPT/HCPCS: 86705; 86706; 86780; 86803; 87340; 87389; 96360; J1642

== ENCOUNTER 2025-07-02 06:53 | Outpatient (CLI) | payer MEDICARE, OTHER ==
[2025-07-02 07:00] VITALS: BP 107/60; O2SAT 96
[2025-07-02] MEDS ORDERED: HEPARIN LOCK FLUSH 100 UNITS/ML 3 ML SYRINGE IV PRN (07:00)
[2025-07-02] MEDS ORDERED: SODIUM CHLORIDE 0.9% INJ 10 ML SYR IV PRN (07:00)
[2025-07-02] MEDS: NS (Normal Saline) 0.9% 1,000 ML IV ONE (07:12)
[2025-07-02] MEDS: HEPARIN LOCK FLUSH 100 UNITS/ML 3 ML SYRINGE IV SCH (07:13)
[2025-07-02] MEDS: SODIUM CHLORIDE 0.9% INJ 10 ML SYR IV SCH (07:13)
== END 2025-07-02 08:05 | disposition home or self-care (01) ==
LOC: M INFU 06:53
PROVIDERS: ATTEND Internal Medicine Gastroenterology
DX: E86.0 Dehydration (principal); Z91.041 Radiographic dye allergy status; Z91.040 Latex allergy status; Z88.6 Allergy status to analgesic agent; Z88.5 Allergy status to narcotic agent; Z88.3 Allergy status to other anti-infective agents
CPT/HCPCS: 96360; J1642

== ENCOUNTER 2025-07-14 06:42 | Outpatient (CLI) | payer MEDICARE, OTHER ==
[2025-07-14] MEDS: NS (Normal Saline) 0.9% 1,000 ML IV ONE (07:05)
[2025-07-14] MEDS: HEPARIN LOCK FLUSH 100 UNITS/ML 3 ML SYRINGE IV PRN (07:06)
[2025-07-14] MEDS: SODIUM CHLORIDE 0.9% INJ 10 ML SYR IV PRN (07:07)
[2025-07-14 07:10] VITALS: BP 105/62; O2SAT 98
[2025-07-14 08:31] VITALS: BP 128/78; O2SAT 99
[2025-07-14] MEDS ORDERED: SODIUM CHLORIDE 0.9% INJ 10 ML SYR IV SCH (09:00)
[2025-07-14] MEDS ORDERED: HEPARIN LOCK FLUSH 100 UNITS/ML 3 ML SYRINGE IV SCH (09:00)
== END 2025-07-14 08:31 ==
LOC: M INFU 06:42
PROVIDERS: ATTEND Internal Medicine Gastroenterology
DX: E86.0 Dehydration (principal); Z88.8 Allergy status to other drugs, medicaments and biological substances; Z88.6 Allergy status to analgesic agent; Z88.5 Allergy status to narcotic agent; Z88.3 Allergy status to other anti-infective agents; Z91.041 Radiographic dye allergy status; Z91.040 Latex allergy status; Z91.89 Other specified personal risk factors, not elsewhere classified
CPT/HCPCS: 96360; J1642

== ENCOUNTER 2025-07-21 06:46 | Outpatient (CLI) | payer MEDICARE, OTHER ==
[2025-07-21] MEDS ORDERED: HEPARIN LOCK FLUSH 100 UNITS/ML 3 ML SYRINGE IV PRN (07:00)
[2025-07-21] MEDS ORDERED: SODIUM CHLORIDE 0.9% INJ 10 ML SYR IV PRN (07:00)
[2025-07-21] MEDS: NS (Normal Saline) 0.9% 1,000 ML IV ONE (07:19)
[2025-07-21] MEDS: HEPARIN LOCK FLUSH 100 UNITS/ML 3 ML SYRINGE IV SCH (07:23)
[2025-07-21] MEDS: SODIUM CHLORIDE 0.9% INJ 10 ML SYR IV SCH (07:24)
[2025-07-21 07:27] VITALS: BP 127/72; O2SAT 99
[2025-07-21 08:15] VITALS: BP 118/56; O2SAT 100
== END 2025-07-21 08:20 | disposition home or self-care (01) ==
LOC: M INFU 06:46
PROVIDERS: ATTEND Internal Medicine Gastroenterology
DX: E86.0 Dehydration (principal); Z88.8 Allergy status to other drugs, medicaments and biological substances; Z88.6 Allergy status to analgesic agent; Z88.5 Allergy status to narcotic agent; Z88.3 Allergy status to other anti-infective agents; Z91.040 Latex allergy status; Z91.041 Radiographic dye allergy status
CPT/HCPCS: 96360; J1642

== ENCOUNTER 2025-07-23 06:53 | Outpatient (CLI) | payer MEDICARE, OTHER ==
[~2025-07-23 06:53] MED LIST changes: +HEPARIN LOCK FLUSH 100 UNITS/ML 3 ML SYRINGE IV PRN; +SODIUM CHLORIDE 0.9% INJ 10 ML SYR IV PRN
[2025-07-23] MEDS: NS (Normal Saline) 0.9% 1,000 ML IV ONE (06:58)
[2025-07-23] MEDS ORDERED: SODIUM CHLORIDE 0.9% INJ 10 ML SYR IV PRN (07:00)
[2025-07-23] MEDS ORDERED: HEPARIN LOCK FLUSH 100 UNITS/ML 3 ML SYRINGE IV PRN (07:00)
[2025-07-23 07:20] VITALS: BP 111/60; O2SAT 99
[2025-07-23] MEDS: SODIUM CHLORIDE 0.9% INJ 10 ML SYR IV SCH (07:45)
[2025-07-23] MEDS: HEPARIN LOCK FLUSH 100 UNITS/ML 3 ML SYRINGE IV SCH (07:45)
[2025-07-23 08:10] VITALS: BP 105/68; O2SAT 99
[2025-07-23] MEDS ORDERED: SODIUM CHLORIDE 0.9% INJ 10 ML SYR IV SCH (09:00)
[2025-07-23] MEDS ORDERED: HEPARIN LOCK FLUSH 100 UNITS/ML 3 ML SYRINGE IV SCH (09:00)
== END 2025-07-23 08:10 ==
LOC: M INFU 06:53
PROVIDERS: ATTEND Internal Medicine Gastroenterology
DX: E86.0 Dehydration (principal); Z88.6 Allergy status to analgesic agent; Z88.3 Allergy status to other anti-infective agents; Z88.5 Allergy status to narcotic agent; Z88.8 Allergy status to other drugs, medicaments and biological substances; Z91.89 Other specified personal risk factors, not elsewhere classified; Z91.041 Radiographic dye allergy status; Z91.040 Latex allergy status
CPT/HCPCS: 96360; J1642

== ENCOUNTER → 2025-07-30 | Outpatient (CLI) | payer MEDICARE, OTHER ==
[~2025-07-30] VITALS: Ht 162.6 cm; Wt 79.5 kg
[~2025-07-30] MED LIST changes: -HEPARIN LOCK FLUSH 100 UNITS/ML 3 ML SYRINGE IV PRN; -SODIUM CHLORIDE 0.9% INJ 10 ML SYR IV PRN
[2025-07-30] MEDS: NS (Normal Saline) 0.9% 1,000 ML IV ONE (07:15)
[2025-07-30 07:24] VITALS: BP 108/64; O2SAT 99
[2025-07-30] MEDS: HEPARIN LOCK FLUSH 100 UNITS/ML 3 ML SYRINGE IV PRN (08:00)
[2025-07-30] MEDS: SODIUM CHLORIDE 0.9% INJ 10 ML SYR IV PRN (08:00)
[2025-07-30] MEDS: SODIUM CHLORIDE 0.9% INJ 10 ML SYR IV SCH (08:10)
[2025-07-30] MEDS: HEPARIN LOCK FLUSH 100 UNITS/ML 3 ML SYRINGE IV SCH (08:10)
== END ==
LOC: M INFU 14:15
PROVIDERS: ATTEND Internal Medicine Gastroenterology
DX: E86.0 Dehydration (principal); Z88.6 Allergy status to analgesic agent; Z88.8 Allergy status to other drugs, medicaments and biological substances; Z91.040 Latex allergy status; Z88.5 Allergy status to narcotic agent; Z88.3 Allergy status to other anti-infective agents; Z91.041 Radiographic dye allergy status; Z91.89 Other specified personal risk factors, not elsewhere classified
CPT/HCPCS: 96360; J1642

== ENCOUNTER 2025-08-04 06:46 | Outpatient (CLI) | payer MEDICARE, OTHER ==
[~2025-08-04] VITALS: Ht 162.6 cm; Wt 78.2 kg
[2025-08-04 07:00] VITALS: BP 118/77; O2SAT 99
[2025-08-04] MEDS: NS (Normal Saline) 0.9% 1,000 ML IV SCH (07:03)
[2025-08-04] MEDS: HEPARIN LOCK FLUSH 100 UNITS/ML 3 ML SYRINGE IV PRN (08:07)
[2025-08-04] MEDS: SODIUM CHLORIDE 0.9% INJ 10 ML SYR IV PRN (08:07)
[2025-08-04 08:10] VITALS: BP 118/77; O2SAT 99
[2025-08-04] MEDS ORDERED: SODIUM CHLORIDE 0.9% INJ 10 ML SYR IV SCH (09:00)
[2025-08-04] MEDS ORDERED: HEPARIN LOCK FLUSH 100 UNITS/ML 3 ML SYRINGE IV SCH (09:00)
== END 2025-08-04 08:10 | disposition home or self-care (01) ==
LOC: M INFU 06:46
PROVIDERS: ATTEND Internal Medicine Gastroenterology
DX: E86.0 Dehydration (principal); Z88.5 Allergy status to narcotic agent; Z88.6 Allergy status to analgesic agent; Z88.8 Allergy status to other drugs, medicaments and biological substances; Z91.09 Other allergy status, other than to drugs and biological substances; Z91.040 Latex allergy status; Z91.041 Radiographic dye allergy status
CPT/HCPCS: 96523; J1642

== ENCOUNTER 2025-08-06 06:43 | Outpatient (CLI) | payer MEDICARE, OTHER ==
[~2025-08-06] VITALS: Ht 162.6 cm; Wt 79.5 kg
[~2025-08-06 06:43] MED LIST changes: +HEPARIN LOCK FLUSH 100 UNITS/ML 3 ML SYRINGE IV PRN; +SODIUM CHLORIDE 0.9% INJ 10 ML SYR IV PRN
[2025-08-06] MEDS: HEPARIN LOCK FLUSH 100 UNITS/ML 3 ML SYRINGE IV SCH (06:58)
[2025-08-06] MEDS: NS (Normal Saline) 0.9% 1,000 ML IV ONE (06:58)
[2025-08-06] MEDS: SODIUM CHLORIDE 0.9% INJ 10 ML SYR IV SCH (06:59)
[2025-08-06 07:00] VITALS: BP 127/60; O2SAT 98
[2025-08-06 08:05] VITALS: BP 128/78; O2SAT 98
== END 2025-08-06 08:05 | disposition home or self-care (01) ==
LOC: M INFU 06:43
PROVIDERS: ATTEND Internal Medicine Gastroenterology
DX: E86.0 Dehydration (principal); Z88.5 Allergy status to narcotic agent; Z88.6 Allergy status to analgesic agent; Z88.8 Allergy status to other drugs, medicaments and biological substances; Z91.041 Radiographic dye allergy status; Z91.09 Other allergy status, other than to drugs and biological substances
CPT/HCPCS: 96360; J1642